=== PATIENT | male | born 1960 | race Two or more races ===

== ENCOUNTER 2018-04-10 12:24 | Inpatient (IN) | payer MEDICAID ==
[~2018-04-10] VITALS: Ht 172.7 cm; Wt 74.8 kg
[~2018-04-10 12:24] MED LIST: DEBROX15 M1 LEFT EAR; LIDOCAINE VISCO20 ML PO
--- NOTE | 2018-04-10 12:50 | Emergency Room Report ---
History of Present Illness General Chief Complaint: Alcohol Intoxication Source: Patient Present Illness HPI Patient present by paramedics for reports of alcohol intoxication patient himself is not awake Is not verbally responsive with us responds minimally to physical stimuli Paramedics reported vomiting prior to arrival History of present illness is otherwise significantly limited Unknown regarding any other trauma Allergies: Coded Allergies: No Known Allergies (Verified , 10/22/06) Patient History Limited by: medical condition Past Medical History: see triage record Pertinent Family History: unable to obtain Reviewed Nursing Documentation: PMH: Agreed; PSxH: Agreed Nursing Documentation-PMH Past Medical History: No History, Except For Hx Hypertension: Yes History Of Psychiatric Problem: Yes - Anxiety, Depression Review of Systems All Other Systems: limited - Other than the ones mentioned in the history of present illness all others are reviewed however they do stay limited due to the patient's mental status Physical Exam Vital Signs Date Time Temp Pulse Resp B/P (MAP) Pulse Ox O2 Delivery O2 Flow Rate FiO2 04/10/18 12:21 98.1 118 20 118/81 94 Room Air 98.1 Sp02 EP Interpretation: reviewed, normal General Appearance: no apparent distress - Disheveled appearance Head: normocephalic, atraumatic Eyes: bilateral eye PERRL, bilateral eye EOMI ENT: normal pharynx Neck: supple Respiratory: normal breath sounds, no rhonchi, no retraction, no accessory muscle use Cardiovascular #1: regular rate, rhythm, no edema Gastrointestinal: non tender, soft Musculoskeletal: other - Withdraws from physical stimuli, no obvious focal deficit Neurologic: responsive - To physical stimuli Skin: other - appears disheveled no obvious hematomas Lymphatic: no adenopathy Medical Decision Making Diagnostic Impression: Primary Impression: Acidosis Additional Impressions: Acute encephalopathy Alcoholic liver disease Hypokalemia Hyponatremia Renal failure ER Course Patient presents in acute altered mental status Multiple differentials are considered Patient has extensive workup initiated including blood work and imaging CT head does not show any acute disease Patient's potassium is significantly low and this is replaced Patient also receiving IV hydration There are evidence of acidosis Patient's mentation has improved throughout his stay However patient does require further inpatient care multispecialty consultation Labs Test 04/10/18 12:59 White Blood Count 9.5 K/UL (4.8-10.8) Red Blood Count 5.08 M/UL (4.70-6.10) Hemoglobin 15.2 G/DL (14.2-18.0) Hematocrit 43.5 % (42.0-52.0) Mean Corpuscular Volume 86 FL (80-99) Mean Corpuscular Hemoglobin 29.9 PG (27.0-31.0) Mean Corpuscular Hemoglobin Concent 34.9 G/DL (32.0-36.0) Red Cell Distribution Width 12.5 % (11.6-14.8) Platelet Count 279 K/UL (150-450) Mean Platelet Volume 6.7 FL (6.5-10.1) Neutrophils (%) (Auto) % (45.0-75.0) Lymphocytes (%) (Auto) % (20.0-45.0) Monocytes (%) (Auto) % (1.0-10.0) Eosinophils (%) (Auto) % (0.0-3.0) Basophils (%) (Auto) % (0.0-2.0) Sodium Level 130 MMOL/L (136-145) Potassium Level 2.2 MMOL/L (3.5-5.1) Chloride Level 83 MMOL/L (98-107) Carbon Dioxide Level 17 MMOL/L (21-32) Anion Gap 31 mmol/L (5-15) Blood Urea Nitrogen 32 mg/dL (7-18) Creatinine 1.9 MG/DL (0.55-1.30) Estimat Glomerular Filtration Rate 37.6 mL/min (>60) Glucose Level 390 MG/DL (74-106) Calcium Level 10.1 MG/DL (8.5-10.1) Total Bilirubin 5.3 MG/DL (0.2-1.0) Direct Bilirubin 3.5 MG/DL (0.0-0.3) Aspartate Amino Transf (AST/SGOT) 207 U/L (15-37) Alanine Aminotransferase (ALT/SGPT) 323 U/L (12-78) Alkaline Phosphatase 103 U/L (46-116) Total Protein 8.0 G/DL (6.4-8.2) Albumin 3.9 G/DL (3.4-5.0) Globulin 4.1 g/dL Albumin/Globulin Ratio 1.0 (1.0-2.7) Serum Alcohol < 3 mg/dL Rhythm Strip Diag. Results EP Interpretation: yes Rate: 66 Rhythm: NSR, no PVC's, no ectopy CT/MRI/US Diagnostic Results CT/MRI/US Diagnostic Results : Impression CT head1. No acute intracranial findings. No evidence of acute intracranial hemorrhage, mass effect, or midline shift. 2. Mild periventricular white matter hypodensities likelyrelated to chronic small vessel disease changes. 3. Generalized cerebral parenchymal volume loss, likelyage-related. Last Vital Signs Date Time Temp Pulse Resp B/P (MAP) Pulse Ox O2 Delivery O2 Flow Rate FiO2 04/10/18 12:21 98.1 118 20 118/81 94 Room Air 98.1 Status: improved Disposition: ADMITTED INPATIENT Condition: Serious Shawn Cruz DO Apr 10, 2018 12:50
[2018-04-10 12:58] VITALS: BP 110/76
[2018-04-10 13:11] LABS: HEMATOCRIT 43.5 % (42.0-52.0); HEMOGLOBIN 15.2 G/DL (14.2-18.0); MEAN CORPUSCULAR VOLUME 86 FL (80-99); PLATELET COUNT 279 K/UL (150-450); RED BLOOD COUNT 5.08 M/UL (4.70-6.10); RED CELL DISTRIBUTION WIDTH 12.5 % (11.6-14.8); WHITE BLOOD COUNT 9.5 K/UL (4.8-10.8)
[2018-04-10 13:30] LABS: ALANINE AMINOTRANSFERASE 323 U/L (12-78); ALBUMIN 3.9 G/DL (3.4-5.0); ALKALINE PHOSPHATASE 103 U/L (46-116); ANION GAP 31 mmol/L (5-15); ASPARTATE AMINO TRANSFERASE 207 U/L (15-37); BILIRUBIN,TOTAL 5.3 MG/DL (0.2-1.0); BLOOD UREA NITROGEN 32 mg/dL (7-18); CALCIUM 10.1 MG/DL (8.5-10.1); CARBON DIOXIDE 17 MMOL/L (21-32); CHLORIDE 83 MMOL/L (98-107); CREATININE 1.9 MG/DL (0.55-1.30); SODIUM 130 MMOL/L (136-145)
[2018-04-10 13:34] LABS: POTASSIUM 2.2 MMOL/L (3.5-5.1)
[2018-04-10 13:46] LABS: BILIRUBIN,DIRECT 3.5 MG/DL (0.0-0.3)
[2018-04-10] MEDS ORDERED: Insulin Human Regular 100units/ml 3ml IV ONE (14:00)
[2018-04-10] MEDS ORDERED: Thiamine HCl 100 MG in D5W 55 ML IVPB ONE (14:45)
[2018-04-10 15:32] VITALS: BP 117/63
[2018-04-10 16:13] LABS: AMMONIA 69 umol/L (11-32)
[2018-04-10] MEDS ORDERED: D5 1/2NS 1,000 ML IV SCH (16:33)
[2018-04-10] MEDS ORDERED: Morphine Sulfate 2mg/ml Inj IVP PRN (16:45)
[2018-04-10] MEDS ORDERED: LORazepam Inj 2mg/ml 1ml IV PRN (16:45)
[2018-04-10 17:29] VITALS: BP 119/71
[2018-04-10 20:00] VITALS: BP 114/72
[2018-04-10] MEDS: NovoLOG Insulin Flexpen SUBQ SCH (21:21)
[2018-04-10] MEDS: Heparin 5000 units/ml inj SUBQ SCH (21:21)
[2018-04-10] MEDS ORDERED: Folic Acid 1 MG, Magnesium Sulfate 2,000 MG, Multivitamin - 12 Injection 10 ML in NS w/... IV SCH (23:00)
[2018-04-11] VITALS: BP 124/55
[2018-04-11 04:00] VITALS: BP 116/61
[2018-04-11] MEDS: NovoLOG Insulin Flexpen SUBQ SCH ×4 (06:11→20:47)
[2018-04-11 07:41] VITALS: BP 90/62
--- NOTE | 2018-04-11 07:50 | Diagnostic Imaging Report ---
Indication: Altered mental status Technique: Continuous axial CT scanning of the head was performed utilizing automated exposure control without intravenous contrast material. Comparison: 10/22/2006 CT dose: Total DLP 1421 mGycm; CTDI vol 0.2, 7 0.4 mGy Findings: There is no acute intracranial hemorrhage, mass effect, midline shift or cortical edema. The ventricles, cisterns and sulci are mildly prominent consistent with atrophy. Periventricular hypoattenuation is seen, a nonspecific finding. Visualized mastoid air cells and paranasal sinuses are unremarkable. No focal lesions of the bony calvarium or soft tissues of the scalp are seen. IMPRESSION: No evidence of acute intracranial hemorrhage, mass effect or cortical edema. MRI may be obtained for more sensitive evaluation as clinically indicated. Mild atrophy and nonspecific periventricular hypoattenuation suggestive of chronic ischemic microvascular changes. This corresponds with the statrad preliminary report. The CT scanner at [facility] is accredited by the [employer] and the scans are performed using protocols designed to limit radiation exposure to as low as reasonably achievable to attain images of sufficient resolution adequate for diagnostic evaluation.
[2018-04-11 07:52] LABS: BASOPHILS % (AUTO) 0.5 % (0.0-2.0); EOSINOPHILS % (AUTO) 0.1 % (0.0-3.0); HEMATOCRIT 38.9 % (42.0-52.0); HEMOGLOBIN 13.7 G/DL (14.2-18.0); LYMPHOCYTES % (AUTO) 12.3 % (20.0-45.0); MEAN CORPUSCULAR VOLUME 86 FL (80-99); MONOCYTES % (AUTO) 5.5 % (1.0-10.0); NEUTROPHILS % (AUTO) 81.6 % (45.0-75.0); PLATELET COUNT 225 K/UL (150-450); RED BLOOD COUNT 4.53 M/UL (4.70-6.10); RED CELL DISTRIBUTION WIDTH 13.2 % (11.6-14.8); WHITE BLOOD COUNT 10.2 K/UL (4.8-10.8)
[2018-04-11] MEDS: Heparin 5000 units/ml inj SUBQ SCH ×2 (08:08→20:43)
[2018-04-11 08:38] LABS: ALANINE AMINOTRANSFERASE 277 U/L (12-78); ALBUMIN 3.3 G/DL (3.4-5.0); ALBUMIN/GLOBULIN RATIO 0.9 (1.0-2.7); ALKALINE PHOSPHATASE 93 U/L (46-116); ANION GAP 10 mmol/L (5-15); ASPARTATE AMINO TRANSFERASE 240 U/L (15-37); BILIRUBIN,TOTAL 4.7 MG/DL (0.2-1.0); BLOOD UREA NITROGEN 32 mg/dL (7-18); CARBON DIOXIDE 33 MMOL/L (21-32); CHLORIDE 100 MMOL/L (98-107); CREATININE 1.1 MG/DL (0.55-1.30); SODIUM 142 MMOL/L (136-145)
[2018-04-11 08:41] LABS: POTASSIUM 2.5 MMOL/L (3.5-5.1)
[2018-04-11 08:42] LABS: BILIRUBIN,DIRECT 3.2 MG/DL (0.0-0.3)
--- NOTE | 2018-04-11 10:59 | Consultation ---
History of Present Illness General Date patient seen: Apr 11, 2018 Chief Complaint: Alcohol Intoxication Present Illness HPI 57-year-old male with hx of depression and anxiety and alcohol dependence , who presents with chief complaint of acute alcohol intoxication. the pt is well known to this physicians. the pt has chronic suicidal ideation. he stated that he was anxious. the pt has irritable mood and is mildly confused. Allergies: Coded Allergies: No Known Allergies (Verified , 10/22/06) Patient History Limited by: medical condition History Provided By: Patient, Medical Record, PMD Healthcare decision maker Resuscitation status Full Code Advanced Directive on File No Past Medical/Surgical History Past Medical/Surgical History: (1) Acidosis (2) Acute alcoholic intoxication (3) Hypokalemia (4) Hyponatremia (5) Alcoholic liver disease (6) Psychosis (7) Acute encephalopathy Review of Systems Psychiatric: Reports: anxiety, depressed feelings, emotional problems, SI Physical Exam General Appearance: no apparent distress, alert, confused Neurologic: depressed affect Last 24 Hour Vital Signs Date Time Temp Pulse Resp B/P (MAP) Pulse Ox O2 Delivery O2 Flow Rate FiO2 04/11/18 08:36 Room Air 04/11/18 07:41 97.0 98 19 90/62 (71) 97 97.0 04/11/18 07:40 90 04/11/18 04:00 96.4 98 19 116/61 (79) 97 96.4 04/11/18 04:00 94 04/11/18 00:00 97.0 97 19 124/55 (78) 96 97.0 04/10/18 21:00 Room Air 04/10/18 20:00 117 04/10/18 20:00 97.5 115 20 114/72 (86) 95 97.5 04/10/18 17:57 Room Air 04/10/18 17:49 98.1 102 20 119/71 100 Room Air 98.1 04/10/18 17:29 98.1 102 20 119/71 100 Room Air 98.1 04/10/18 15:32 98.1 102 20 117/63 100 Room Air 98.1 04/10/18 12:58 98.1 84 20 110/76 94 Room Air 98.1 04/10/18 12:21 98.1 118 20 118/81 94 Room Air 98.1 Intake and Output 04/10/18 04/11/18 19:00 07:00 Output Total 0 ml 250 ml Balance 0 ml -250 ml Output Urine Total 0 ml Emesis 250 ml # Voids 2 Laboratory Tests Test 04/10/18 12:59 04/10/18 15:40 04/10/18 16:57 04/10/18 17:13 White Blood Count 9.5 K/UL (4.8-10.8) Red Blood Count 5.08 M/UL (4.70-6.10) Hemoglobin 15.2 G/DL (14.2-18.0) Hematocrit 43.5 % (42.0-52.0) Mean Corpuscular Volume 86 FL (80-99) Mean Corpuscular Hemoglobin 29.9 PG (27.0-31.0) Mean Corpuscular Hemoglobin Concent 34.9 G/DL (32.0-36.0) Red Cell Distribution Width 12.5 % (11.6-14.8) Platelet Count 279 K/UL (150-450) Mean Platelet Volume 6.7 FL (6.5-10.1) Neutrophils (%) (Auto) % (45.0-75.0) Lymphocytes (%) (Auto) % (20.0-45.0) Monocytes (%) (Auto) % (1.0-10.0) Eosinophils (%) (Auto) % (0.0-3.0) Basophils (%) (Auto) % (0.0-2.0) Differential Total Cells Counted 100 Neutrophils % (Manual) 88 % (45-75) H Lymphocytes % (Manual) 5 % (20-45) L Monocytes % (Manual) 7 % (1-10) Eosinophils % (Manual) 0 % (0-3) Basophils % (Manual) 0 % (0-2) Band Neutrophils 0 % (0-8) Platelet Estimate Adequate Platelet Morphology Normal Red Blood Cell Morphology Normal Sodium Level 130 MMOL/L (136-145) L Potassium Level 2.2 MMOL/L (3.5-5.1) *L Chloride Level 83 MMOL/L (98-107) L Carbon Dioxide Level 17 MMOL/L (21-32) L Anion Gap 31 mmol/L (5-15) H Blood Urea Nitrogen 32 mg/dL (7-18) H Creatinine 1.9 MG/DL (0.55-1.30) H Estimat Glomerular Filtration Rate 37.6 mL/min (>60) Glucose Level 390 MG/DL (74-106) H Calcium Level 10.1 MG/DL (8.5-10.1) Total Bilirubin 5.3 MG/DL (0.2-1.0) H Direct Bilirubin 3.5 MG/DL (0.0-0.3) H Aspartate Amino Transf (AST/SGOT) 207 U/L (15-37) H Alanine Aminotransferase (ALT/SGPT) 323 U/L (12-78) H Alkaline Phosphatase 103 U/L (46-116) Total Protein 8.0 G/DL (6.4-8.2) Albumin 3.9 G/DL (3.4-5.0) Globulin 4.1 g/dL Albumin/Globulin Ratio 1.0 (1.0-2.7) Serum Alcohol < 3 mg/dL Activated Partial Thromboplast Time 22 SEC (23-33) L Osmolality 300 mOsm/kg (297-317) Ammonia 69 umol/L (11-32) H Salicylates Level < 0.2 ug/mL (2.8-20) L Acetone Level Negative (NEGATIVE) Urine Opiates Screen Negative (NEGATIVE) Urine Barbiturates Screen Negative (NEGATIVE) Phencyclidine (PCP) Screen Negative (NEGATIVE) Urine Amphetamines Screen Negative (NEGATIVE) Urine Benzodiazepines Screen Negative (NEGATIVE) Urine Cocaine Screen Negative (NEGATIVE) Urine Marijuana (THC) Screen Negative (NEGATIVE) Arterial Blood pH 7.502 (7.350-7.450) Arterial Blood Partial Pressure CO2 33.2 mmHg (35.0-45.0) L Arterial Blood Partial Pressure O2 69.2 mmHg (75.0-100.0) L Arterial Blood HCO3 25.4 mmol/L (22.0-26.0) Arterial Blood Oxygen Saturation 94.0 % (92.0-98.0) Arterial Blood Base Excess 2.7 Brant Test Positive Test 04/11/18 07:15 White Blood Count 10.2 K/UL (4.8-10.8) Red Blood Count 4.53 M/UL (4.70-6.10) L Hemoglobin 13.7 G/DL (14.2-18.0) L Hematocrit 38.9 % (42.0-52.0) L Mean Corpuscular Volume 86 FL (80-99) Mean Corpuscular Hemoglobin 30.3 PG (27.0-31.0) Mean Corpuscular Hemoglobin Concent 35.3 G/DL (32.0-36.0) Red Cell Distribution Width 13.2 % (11.6-14.8) Platelet Count 225 K/UL (150-450) Mean Platelet Volume 6.7 FL (6.5-10.1) Neutrophils (%) (Auto) 81.6 % (45.0-75.0) H Lymphocytes (%) (Auto) 12.3 % (20.0-45.0) L Monocytes (%) (Auto) 5.5 % (1.0-10.0) Eosinophils (%) (Auto) 0.1 % (0.0-3.0) Basophils (%) (Auto) 0.5 % (0.0-2.0) Sodium Level 142 MMOL/L (136-145) # Potassium Level 2.5 MMOL/L (3.5-5.1) *L Chloride Level 100 MMOL/L (98-107) Carbon Dioxide Level 33 MMOL/L (21-32) H Anion Gap 10 mmol/L (5-15) Blood Urea Nitrogen 32 mg/dL (7-18) H Creatinine 1.1 MG/DL (0.55-1.30) Estimat Glomerular Filtration Rate > 60 mL/min (>60) Glucose Level 136 MG/DL (74-106) #H Calcium Level 9.0 MG/DL (8.5-10.1) Total Bilirubin 4.7 MG/DL (0.2-1.0) H Direct Bilirubin 3.2 MG/DL (0.0-0.3) H Aspartate Amino Transf (AST/SGOT) 240 U/L (15-37) H Alanine Aminotransferase (ALT/SGPT) 277 U/L (12-78) H Alkaline Phosphatase 93 U/L (46-116) Total Protein 7.1 G/DL (6.4-8.2) Albumin 3.3 G/DL (3.4-5.0) L Globulin 3.8 g/dL Albumin/Globulin Ratio 0.9 (1.0-2.7) L Height (Feet): 5 Height (Inches): 8.00 Weight (Pounds): 165 Medications Current Medications Medications (Trade) Dose Ordered Sig/Clyde Route PRN Reason Start Time Stop Time Status Last Admin Dose Admin Dextrose (Dextrose 50%) 25 ml PRN IV Hypoglycemia 04/10/18 16:45 05/10/18 16:44 Dextrose (Dextrose 50%) 50 ml PRN IV hypoglycemia 04/10/18 16:45 05/10/18 16:44 Folic Acid 1 mg/ Magnesium Sulfate 2000 mg/ Multivitamins 10 ml/Sodium Chloride 1,014.2 ml @ 125 mls/ hr Q24H IV 04/10/18 23:00 05/10/18 22:59 04/10/18 23:12 Heparin Sodium (Porcine) (Heparin 5000 units/ml) 5,000 units EVERY 12 HOURS SUBQ 04/10/18 21:00 05/10/18 20:59 04/11/18 08:08 Insulin Aspart (NovoLOG) BEFORE MEALS AND HS SUBQ 04/10/18 21:00 05/10/18 20:59 04/11/18 06:11 Lorazepam (Ativan 2mg/ml 1ml) 0.5 mg Q4H PRN IV For Anxiety 04/10/18 16:45 04/17/18 16:44 Morphine Sulfate (Morphine Sulfate) 1 mg Q4H PRN IVP For Pain 04/10/18 16:45 04/17/18 16:44 Ondansetron HCl (Zofran) 4 mg Q6H PRN IVP Nausea & Vomiting 04/10/18 16:45 05/10/18 16:44 04/10/18 18:28 Potassium Chloride 100 ml @ 100 mls/hr Q1HR IVPB 04/11/18 10:00 04/11/18 13:59 04/11/18 10:20 Potassium Chloride 100 ml @ 100 mls/hr Q1HR IVPB 04/11/18 18:00 04/11/18 21:59 Sodium Chloride 1,000 ml @ 50 mls/hr Q20H IV 04/10/18 21:00 05/10/18 20:59 04/10/18 21:19 Assessment/Plan Status: stable Assessment/Plan alcohol intoxication Alcohol withdrawal Encephalopathy due to substance/alcohol valium prn depakote cont to monitor provided ro/Aubrey Triplett MD Apr 11, 2018 10:59
[2018-04-11 12:00] VITALS: BP 96/54
--- NOTE | 2018-04-11 12:51 | Consultation ---
History of Present Illness General Date patient seen: Apr 11, 2018 Present Illness HPI 57 year old male with hx of ETOH liver disease, psychosis brought in by paramedics with ALOC. Paramedics reported vomiting prior to their arrival. He was agitated in Er and received appropriate treatment in ER and admitted to telemetry for further treatment. Allergies: Coded Allergies: No Known Allergies (Verified , 10/22/06) Patient History Healthcare decision maker Resuscitation status Full Code Advanced Directive on File No Past Medical/Surgical History Past Medical/Surgical History: (1) Alcoholic liver disease (2) Psychosis Review of Systems Constitutional: Reports: malaise Physical Exam General Appearance: WD/WN Lines, tubes and drains: peripheral HEENT: normocephalic Neck: non-tender, normal alignment Respiratory/Chest: chest wall non-tender, lungs clear Breasts: no masses Cardiovascular/Chest: normal peripheral pulses Abdomen: normal bowel sounds, non tender Genitourinary/Rectal: normal genital exam Extremities: normal range of motion Skin Exam: normal pigmentation Last 24 Hour Vital Signs Date Time Temp Pulse Resp B/P (MAP) Pulse Ox O2 Delivery O2 Flow Rate FiO2 04/11/18 08:36 Room Air 04/11/18 07:41 97.0 98 19 90/62 (71) 97 97.0 04/11/18 07:40 90 04/11/18 04:00 96.4 98 19 116/61 (79) 97 96.4 04/11/18 04:00 94 04/11/18 00:00 97.0 97 19 124/55 (78) 96 97.0 04/10/18 21:00 Room Air 04/10/18 20:00 117 04/10/18 20:00 97.5 115 20 114/72 (86) 95 97.5 04/10/18 17:57 Room Air 04/10/18 17:49 98.1 102 20 119/71 100 Room Air 98.1 04/10/18 17:29 98.1 102 20 119/71 100 Room Air 98.1 04/10/18 15:32 98.1 102 20 117/63 100 Room Air 98.1 04/10/18 12:58 98.1 84 20 110/76 94 Room Air 98.1 Intake and Output 04/10/18 04/11/18 19:00 07:00 Output Total 0 ml 250 ml Balance 0 ml -250 ml Output Urine Total 0 ml Emesis 250 ml # Voids 2 Laboratory Tests Test 04/10/18 12:59 04/10/18 15:40 04/10/18 16:57 04/10/18 17:13 White Blood Count 9.5 K/UL (4.8-10.8) Red Blood Count 5.08 M/UL (4.70-6.10) Hemoglobin 15.2 G/DL (14.2-18.0) Hematocrit 43.5 % (42.0-52.0) Mean Corpuscular Volume 86 FL (80-99) Mean Corpuscular Hemoglobin 29.9 PG (27.0-31.0) Mean Corpuscular Hemoglobin Concent 34.9 G/DL (32.0-36.0) Red Cell Distribution Width 12.5 % (11.6-14.8) Platelet Count 279 K/UL (150-450) Mean Platelet Volume 6.7 FL (6.5-10.1) Neutrophils (%) (Auto) % (45.0-75.0) Lymphocytes (%) (Auto) % (20.0-45.0) Monocytes (%) (Auto) % (1.0-10.0) Eosinophils (%) (Auto) % (0.0-3.0) Basophils (%) (Auto) % (0.0-2.0) Differential Total Cells Counted 100 Neutrophils % (Manual) 88 % (45-75) H Lymphocytes % (Manual) 5 % (20-45) L Monocytes % (Manual) 7 % (1-10) Eosinophils % (Manual) 0 % (0-3) Basophils % (Manual) 0 % (0-2) Band Neutrophils 0 % (0-8) Platelet Estimate Adequate Platelet Morphology Normal Red Blood Cell Morphology Normal Sodium Level 130 MMOL/L (136-145) L Potassium Level 2.2 MMOL/L (3.5-5.1) *L Chloride Level 83 MMOL/L (98-107) L Carbon Dioxide Level 17 MMOL/L (21-32) L Anion Gap 31 mmol/L (5-15) H Blood Urea Nitrogen 32 mg/dL (7-18) H Creatinine 1.9 MG/DL (0.55-1.30) H Estimat Glomerular Filtration Rate 37.6 mL/min (>60) Glucose Level 390 MG/DL (74-106) H Calcium Level 10.1 MG/DL (8.5-10.1) Total Bilirubin 5.3 MG/DL (0.2-1.0) H Direct Bilirubin 3.5 MG/DL (0.0-0.3) H Aspartate Amino Transf (AST/SGOT) 207 U/L (15-37) H Alanine Aminotransferase (ALT/SGPT) 323 U/L (12-78) H Alkaline Phosphatase 103 U/L (46-116) Total Protein 8.0 G/DL (6.4-8.2) Albumin 3.9 G/DL (3.4-5.0) Globulin 4.1 g/dL Albumin/Globulin Ratio 1.0 (1.0-2.7) Serum Alcohol < 3 mg/dL Activated Partial Thromboplast Time 22 SEC (23-33) L Osmolality 300 mOsm/kg (297-317) Ammonia 69 umol/L (11-32) H Salicylates Level < 0.2 ug/mL (2.8-20) L Acetone Level Negative (NEGATIVE) Urine Opiates Screen Negative (NEGATIVE) Urine Barbiturates Screen Negative (NEGATIVE) Phencyclidine (PCP) Screen Negative (NEGATIVE) Urine Amphetamines Screen Negative (NEGATIVE) Urine Benzodiazepines Screen Negative (NEGATIVE) Urine Cocaine Screen Negative (NEGATIVE) Urine Marijuana (THC) Screen Negative (NEGATIVE) Arterial Blood pH 7.502 (7.350-7.450) Arterial Blood Partial Pressure CO2 33.2 mmHg (35.0-45.0) L Arterial Blood Partial Pressure O2 69.2 mmHg (75.0-100.0) L Arterial Blood HCO3 25.4 mmol/L (22.0-26.0) Arterial Blood Oxygen Saturation 94.0 % (92.0-98.0) Arterial Blood Base Excess 2.7 Brant Test Positive Test 04/11/18 07:15 White Blood Count 10.2 K/UL (4.8-10.8) Red Blood Count 4.53 M/UL (4.70-6.10) L Hemoglobin 13.7 G/DL (14.2-18.0) L Hematocrit 38.9 % (42.0-52.0) L Mean Corpuscular Volume 86 FL (80-99) Mean Corpuscular Hemoglobin 30.3 PG (27.0-31.0) Mean Corpuscular Hemoglobin Concent 35.3 G/DL (32.0-36.0) Red Cell Distribution Width 13.2 % (11.6-14.8) Platelet Count 225 K/UL (150-450) Mean Platelet Volume 6.7 FL (6.5-10.1) Neutrophils (%) (Auto) 81.6 % (45.0-75.0) H Lymphocytes (%) (Auto) 12.3 % (20.0-45.0) L Monocytes (%) (Auto) 5.5 % (1.0-10.0) Eosinophils (%) (Auto) 0.1 % (0.0-3.0) Basophils (%) (Auto) 0.5 % (0.0-2.0) Sodium Level 142 MMOL/L (136-145) # Potassium Level 2.5 MMOL/L (3.5-5.1) *L Chloride Level 100 MMOL/L (98-107) Carbon Dioxide Level 33 MMOL/L (21-32) H Anion Gap 10 mmol/L (5-15) Blood Urea Nitrogen 32 mg/dL (7-18) H Creatinine 1.1 MG/DL (0.55-1.30) Estimat Glomerular Filtration Rate > 60 mL/min (>60) Glucose Level 136 MG/DL (74-106) #H Calcium Level 9.0 MG/DL (8.5-10.1) Total Bilirubin 4.7 MG/DL (0.2-1.0) H Direct Bilirubin 3.2 MG/DL (0.0-0.3) H Aspartate Amino Transf (AST/SGOT) 240 U/L (15-37) H Alanine Aminotransferase (ALT/SGPT) 277 U/L (12-78) H Alkaline Phosphatase 93 U/L (46-116) Total Protein 7.1 G/DL (6.4-8.2) Albumin 3.3 G/DL (3.4-5.0) L Globulin 3.8 g/dL Albumin/Globulin Ratio 0.9 (1.0-2.7) L Height (Feet): 5 Height (Inches): 8.00 Weight (Pounds): 165 Medications Current Medications Medications (Trade) Dose Ordered Sig/Clyde Route PRN Reason Start Time Stop Time Status Last Admin Dose Admin Dextrose (Dextrose 50%) 25 ml PRN IV Hypoglycemia 04/10/18 16:45 05/10/18 16:44 Dextrose (Dextrose 50%) 50 ml PRN IV hypoglycemia 04/10/18 16:45 05/10/18 16:44 Diazepam (Valium) 10 mg Q6H PRN ORAL For Anxiety 04/11/18 11:30 04/18/18 11:29 Divalproex Sodium (Depakote) 500 mg BEDTIME ORAL 04/11/18 21:00 05/11/18 20:59 Folic Acid 1 mg/ Magnesium Sulfate 2000 mg/ Multivitamins 10 ml/Sodium Chloride 1,014.2 ml @ 125 mls/ hr Q24H IV 04/10/18 23:00 05/10/18 22:59 04/10/18 23:12 Heparin Sodium (Porcine) (Heparin 5000 units/ml) 5,000 units EVERY 12 HOURS SUBQ 04/10/18 21:00 05/10/18 20:59 04/11/18 08:08 Insulin Aspart (NovoLOG) BEFORE MEALS AND HS SUBQ 04/10/18 21:00 05/10/18 20:59 04/11/18 11:22 Morphine Sulfate (Morphine Sulfate) 1 mg Q4H PRN IVP For Pain 04/10/18 16:45 04/17/18 16:44 Ondansetron HCl (Zofran) 4 mg Q6H PRN IVP Nausea & Vomiting 04/10/18 16:45 05/10/18 16:44 04/10/18 18:28 Potassium Chloride 100 ml @ 100 mls/hr Q1HR IVPB 04/11/18 10:00 04/11/18 13:59 04/11/18 12:13 Potassium Chloride 100 ml @ 100 mls/hr Q1HR IVPB 04/11/18 18:00 04/11/18 21:59 Sodium Chloride 1,000 ml @ 50 mls/hr Q20H IV 04/10/18 21:00 05/10/18 20:59 04/10/18 21:19 Assessment/Plan Problem List: (1) Acute encephalopathy ICD Codes: G93.40 - Encephalopathy, unspecified SNOMED: 00998590, 203609228 (2) Hyponatremia ICD Codes: E87.1 - Hypo-osmolality and hyponatremia SNOMED: 37907875 (3) Alcoholic liver disease ICD Codes: K70.9 - Alcoholic liver disease, unspecified SNOMED: 12459994 (4) Psychosis ICD Codes: F29 - Unspecified psychosis not due to a substance or known physiological condition SNOMED: 67402741 Assessment/Plan iv fluids psych evaluation Banan bag f/u electrolytes check Na, and K supplement social service consult Marion Schneider MD Apr 11, 2018 12:51
[2018-04-11 16:00] VITALS: BP 130/60
[2018-04-11] MEDS ORDERED: Morphine Sulfate 2mg/ml Inj IVP PRN (16:45)
[2018-04-11 20:00] VITALS: BP 93/70
[2018-04-11] MEDS: Depakote 500mg tab ORAL SCH (20:36)
[2018-04-11] MEDS ORDERED: Depakote 500mg tab ORAL SCH (21:00)
--- NOTE | 2018-04-11 22:00 | History and Physical Report ---
DATE OF ADMISSION: 04/10/2018 CHIEF COMPLAINT: The patient is a 57-year-old male, who presents with chief complaint of acute alcohol intoxication. HISTORY OF PRESENT ILLNESS: The patient was brought in by paramedics who found the patient on the street, obviously intoxicated. The patient was transported to [facility]. The patient was admitted for acute alcohol intoxication and severe hyponatremia and hypokalemia. PAST MEDICAL HISTORY: Significant for major depression. PAST SURGICAL HISTORY: Significant for appendectomy at age 11. CURRENT MEDICATIONS: Unknown. ALLERGIES: No known drug allergies. SOCIAL HISTORY: The patient is single and has been living in [facility]. The patient denies tobacco or alcohol use. The patient denies tobacco use. The patient states that he has been drinking alcohol daily for the past couple weeks. REVIEW OF SYSTEMS: CONSTITUTIONAL: The patient denies weight loss or weight gain. The patient denies fevers or chills. HEENT: The patient denies ear or throat pain. The patient denies headache. CARDIOVASCULAR: The patient denies palpitations or chest pain. CHEST: The patient denies wheeze or shortness of breath. ABDOMEN: The patient complains of epigastric pain. The patient denies diarrhea. The patient complains of nausea and vomiting. NEUROMUSCULAR: The patient denies seizures or generalized weakness. GENITOURINARY: The patient denies dysuria or increased frequency of urination. PHYSICAL EXAMINATION: GENERAL: The patient is well-developed and well-nourished disheveled male, in no apparent distress. VITAL SIGNS: Temperature 96.4 degrees, respirations 19, pulse 98, and blood pressure 116/ . HEENT: Eyes, pupils equal and responsive to light and accommodation. Extraocular movements are intact. NECK: Supple without lymphadenopathy. CHEST: Lungs are clear to auscultation bilaterally without wheezes or rales. CARDIOVASCULAR: Regular rate. S1 and S2 are normal without murmurs, rubs, or gallops. ABDOMEN: Soft, nontender, and nondistended. Positive bowel sounds. No evidence of hepatosplenomegaly. Currently, no rebound or guarding noted. EXTREMITIES: Negative for clubbing, cyanosis, or edema. RECTAL: Refused. GENITAL: Refused. NEUROLOGIC: Cranial nerves II through XII are grossly intact without focal deficits. Motor strength is 5/5 bilaterally. Deep tendon reflexes are 2+ plantar. LABORATORY AND DIAGNOSTIC DATA: WBC 9.5, hemoglobin 15.2, hematocrit 43.5 and platelets 279,000. Sodium 130, potassium 2.2, chloride 83, CO2 17, BUN 32, creatinine 1.9 and glucose 390. Total bilirubin elevated at 5.3, direct bilirubin elevated at 3.5. AST elevated at 207 and ALT elevated at 320. ASSESSMENT: This is a 57-year-old male; 1. Acute alcohol intoxication. 2. Alcohol dependence. 3. Hypokalemia. 4. Hyponatremia. 5. Renal failure. 6. Elevated liver function tests. TREATMENT: 1. Alcohol intoxication/alcohol dependence. The patient has been placed on p.r.n. Ativan and Neurontin for seizure precautions. 2. Hypokalemia/hyponatremia. This may be secondary to nausea and vomiting. A Nephrology consultation is pending with Dr. Bautista. 3. Renal failure. The patient is currently receiving intravenous fluids. As above, a Nephrology consultation obtained with Dr. Bautista. 4. Elevated liver function tests. A Gastroenterology consultation has been obtained with Dr. Jarod Rich. 5. Major depression. A Psychiatric consultation has been obtained with Dr. Roberts. Josue Shah M.D. DR: COLETET JOB#: [id number] CC:
[2018-04-11] MEDS: Folic Acid 1 MG, Magnesium Sulfate 2,000 MG, Multivitamin - 12 Injection 10 ML in NS w/... IV SCH (23:13)
[2018-04-12] VITALS: BP 96/57
[2018-04-12 04:00] VITALS: BP 93/66
[2018-04-12] MEDS: NovoLOG Insulin Flexpen SUBQ SCH ×4 (06:18→21:27)
[2018-04-12 07:59] LABS: EOSINOPHILS % (AUTO) 0.4 % (0.0-3.0); HEMOGLOBIN 12.2 G/DL (14.2-18.0); MEAN CORPUSCULAR VOLUME 87 FL (80-99); MONOCYTES % (AUTO) 6.9 % (1.0-10.0); NEUTROPHILS % (AUTO) 75.7 % (45.0-75.0); PLATELET COUNT 204 K/UL (150-450); RED BLOOD COUNT 4.01 M/UL (4.70-6.10); RED CELL DISTRIBUTION WIDTH 13.8 % (11.6-14.8); WHITE BLOOD COUNT 7.6 K/UL (4.8-10.8)
[2018-04-12 08:01] VITALS: BP 109/77
[2018-04-12 08:23] LABS: ANION GAP 7 mmol/L (5-15); BLOOD UREA NITROGEN 17 mg/dL (7-18); CALCIUM 9.2 MG/DL (8.5-10.1); CARBON DIOXIDE 34 MMOL/L (21-32); CHLORIDE 97 MMOL/L (98-107); CREATININE 0.8 MG/DL (0.55-1.30); SODIUM 138 MMOL/L (136-145)
[2018-04-12 08:24] LABS: POTASSIUM 2.7 MMOL/L (3.5-5.1)
[2018-04-12] MEDS: Heparin 5000 units/ml inj SUBQ SCH ×2 (08:47→21:21)
[2018-04-12] MEDS ORDERED: Tubing IV Secondary IV ONE (11:12)
[2018-04-12] MEDS ORDERED: NS 275ml ONE (11:12)
--- NOTE | 2018-04-12 11:41 | Pulmonology Progress Note ---
Assessment/Plan Problems: (1) Acute encephalopathy (2) Hyponatremia (3) Alcoholic liver disease (4) Psychosis Assessment/Plan dc iv fluids add spironolactone for hypokalemia symptomatic treatment f/u by psychiatry Subjective ROS Limited/Unobtainable: No Constitutional: Reports: no symptoms HEENT: Repors: no symptoms Respiratory: Reports: no symptoms Allergies: Coded Allergies: No Known Allergies (Verified , 10/22/06) Objective Last 24 Hour Vital Signs Date Time Temp Pulse Resp B/P (MAP) Pulse Ox O2 Delivery O2 Flow Rate FiO2 04/12/18 09:00 Room Air 04/12/18 08:01 97.8 98 20 109/77 (88) 97.8 04/12/18 04:00 98.9 87 18 93/66 (75) 95 98.9 04/12/18 00:00 98.9 93 18 96/57 (70) 97 98.9 04/11/18 21:00 Room Air 04/11/18 20:00 99.1 98 18 93/70 (78) 98 99.1 04/11/18 16:00 98.3 85 19 130/60 (83) 99 98.3 04/11/18 12:00 97.5 93 18 96/54 (68) 97 97.5 04/11/18 12:00 101 Intake and Output 04/11/18 04/12/18 19:00 07:00 Intake Total 150 ml 1555 ml Output Total 0 ml 800 ml Balance 150 ml 755 ml Intake Oral 150 ml 480 ml IV Total 1075 ml Output Urine Total 0 ml 800 ml Stool Total 0 ml General Appearance: WD/WN HEENT: normocephalic, atraumatic Respiratory/Chest: chest wall non-tender Cardiovascular: normal peripheral pulses, normal rate Abdomen: normal bowel sounds Genitourinary: normal external genitalia Microbiology Date/Time Source Procedure Growth Status 04/10/18 17:30 Nasal Nares Right MRSA Culture - Final NO METHICILLIN RESISTANT STAPH AUREUS... Complete 04/10/18 17:30 Rectum VRE Culture - Final NO VANCOMYCIN RESISTANT ENTEROCOCCUS ... Complete 04/10/18 17:30 Rectum - Final NO CARBAPENEM-RESISTANT ENTEROBACTERI... Complete Laboratory Tests 04/12/18 06:15: White Blood Count 7.6, Red Blood Count 4.01L, Hemoglobin 12.2L, Hematocrit 35.0L , Mean Corpuscular Volume 87, Mean Corpuscular Hemoglobin 30.5, Mean Corpuscular Hemoglobin Concent 35.0, Red Cell Distribution Width 13.8, Platelet Count 204, Mean Platelet Volume 6.9, Neutrophils (%) (Auto) 75.7H, Lymphocytes ( %) (Auto) 16.0L, Monocytes (%) (Auto) 6.9, Eosinophils (%) (Auto) 0.4, Basophils (%) (Auto) 1.0, Sodium Level 138, Potassium Level 2.7*L, Chloride Level 97L, Carbon Dioxide Level 34H, Anion Gap 7, Blood Urea Nitrogen 17, Creatinine 0.8, Estimat Glomerular Filtration Rate > 60, Glucose Level 131H, Calcium Level 9.2, Hepatitis A IgM Antibody [Pending], Hepatitis B Surface Antigen [Pending], Hepatitis B Core IgM Antibody [Pending], Hepatitis C Antibody [Pending] Current Medications Medications (Trade) Dose Ordered Sig/Clyde Route PRN Reason Start Time Stop Time Status Last Admin Dose Admin Dextrose (Dextrose 50%) 25 ml PRN IV Hypoglycemia 04/11/18 15:15 05/10/18 16:44 Dextrose (Dextrose 50%) 50 ml PRN IV hypoglycemia 04/11/18 15:15 05/10/18 16:44 Diazepam (Valium) 10 mg Q6H PRN ORAL For Anxiety 04/11/18 17:30 04/18/18 11:29 Divalproex Sodium (Depakote) 500 mg BEDTIME ORAL 04/11/18 21:00 05/11/18 20:59 04/11/18 20:36 Folic Acid 1 mg/ Magnesium Sulfate 2000 mg/ Multivitamins 10 ml/Sodium Chloride 1,014.2 ml @ 125 mls/ hr Q24H IV 04/11/18 23:00 05/10/18 22:59 04/11/18 23:13 Heparin Sodium (Porcine) (Heparin 5000 units/ml) 5,000 units EVERY 12 HOURS SUBQ 04/11/18 21:00 05/10/18 20:59 04/12/18 08:47 Insulin Aspart (NovoLOG) BEFORE MEALS AND HS SUBQ 04/11/18 16:30 05/10/18 20:59 04/12/18 06:18 Morphine Sulfate (Morphine Sulfate) 1 mg Q4H PRN IVP For Pain 04/11/18 16:45 04/17/18 16:44 Ondansetron HCl (Zofran) 4 mg Q6H PRN IVP Nausea & Vomiting 04/11/18 16:45 05/10/18 16:44 Potassium Chloride (K-Dur) 40 meq ONCE ORAL 04/12/18 11:00 04/12/18 12:00 04/12/18 10:59 Sodium Chloride 1,000 ml @ 50 mls/hr Q20H IV 04/11/18 15:14 05/10/18 15:13 04/11/18 17:45 Marion Schneider MD Apr 12, 2018 11:41
[2018-04-12 12:00] VITALS: BP 94/63
--- NOTE | 2018-04-12 13:42 | GI Initial Consult Note ---
History of Present Illness General Date patient seen: Apr 12, 2018 Time patient seen: 14:15 Reason for Hospitalization: Alcohol Intoxication Referring physician: DHARA JIN Reason for Consultation: ETOH ABUSE Present Illness HPI Patient present by paramedics for reports of alcohol intoxication patient himself is not awake Is not verbally responsive with us responds minimally to physical stimuli Paramedics reported vomiting prior to arrival History of present illness is otherwise significantly limited Unknown regarding any other trauma GI consulted for AMS 2/2 to ETOH abuse. ROS limited, pt seen awake alert NAD with active N/V. Currently on a diet, states he has been drinking. Has very vague answers. Unable to obtain proper history. Labs reviewed show hypokalemia , anemia, abnormal LFTs. Abdomen distended and firm. Unknown history of endoscopy / colonoscopy. Med list reviewed/reconciled: Yes Allergies: Coded Allergies: No Known Allergies (Verified , 10/22/06) Patient History Limited by: medical condition History Provided By: Medical Record [facility] Narrative Past Medical History: No History, Except For Hx Hypertension: Yes History Of Psychiatric Problem: Yes - Anxiety, Depression ETOH abuse Social History: Reports: alcohol use Review of Systems All Other Systems: limited Physical Exam Vital Signs Date Time Temp Pulse Resp B/P (MAP) Pulse Ox O2 Delivery O2 Flow Rate FiO2 04/10/18 12:21 98.1 118 20 118/81 94 Room Air 98.1 Sp02 EP Interpretation: reviewed, normal Labs Laboratory Tests Test 04/12/18 06:15 White Blood Count 7.6 K/UL (4.8-10.8) Red Blood Count 4.01 M/UL (4.70-6.10) L Hemoglobin 12.2 G/DL (14.2-18.0) L Hematocrit 35.0 % (42.0-52.0) L Mean Corpuscular Volume 87 FL (80-99) Mean Corpuscular Hemoglobin 30.5 PG (27.0-31.0) Mean Corpuscular Hemoglobin Concent 35.0 G/DL (32.0-36.0) Red Cell Distribution Width 13.8 % (11.6-14.8) Platelet Count 204 K/UL (150-450) Mean Platelet Volume 6.9 FL (6.5-10.1) Neutrophils (%) (Auto) 75.7 % (45.0-75.0) H Lymphocytes (%) (Auto) 16.0 % (20.0-45.0) L Monocytes (%) (Auto) 6.9 % (1.0-10.0) Eosinophils (%) (Auto) 0.4 % (0.0-3.0) Basophils (%) (Auto) 1.0 % (0.0-2.0) Sodium Level 138 MMOL/L (136-145) Potassium Level 2.7 MMOL/L (3.5-5.1) *L Chloride Level 97 MMOL/L (98-107) L Carbon Dioxide Level 34 MMOL/L (21-32) H Anion Gap 7 mmol/L (5-15) Blood Urea Nitrogen 17 mg/dL (7-18) Creatinine 0.8 MG/DL (0.55-1.30) Estimat Glomerular Filtration Rate > 60 mL/min (>60) Glucose Level 131 MG/DL (74-106) H Calcium Level 9.2 MG/DL (8.5-10.1) Hepatitis A IgM Antibody Pending Hepatitis B Surface Antigen Pending Hepatitis B Core IgM Antibody Pending Hepatitis C Antibody Pending General Appearance: well appearing, no apparent distress, alert Head: normocephalic EENT: PERRL/EOMI, normal ENT inspection Neck: supple Respiratory: normal breath sounds, no respiratory distress Cardiovascular: normal rate Gastrointestinal: normal inspection, non tender, soft, normal bowel sounds, distended, ascites Rectal: deferred Genitourinary: deferred Musculoskeletal: normal inspection, back normal Neurologic: alert, responsive Skin: normal inspection, normal color, no rash, warm/dry, palpation normal, well hydrated Lymphatic: normal inspection, no adenopathy Current Medications Current Medications Medications (Trade) Dose Ordered Sig/Clyde Route PRN Reason Start Time Stop Time Status Last Admin Dose Admin Dextrose (Dextrose 50%) 25 ml PRN IV Hypoglycemia 04/11/18 15:15 05/10/18 16:44 Dextrose (Dextrose 50%) 50 ml PRN IV hypoglycemia 04/11/18 15:15 05/10/18 16:44 Diazepam (Valium) 10 mg Q6H PRN ORAL For Anxiety 04/11/18 17:30 04/18/18 11:29 Divalproex Sodium (Depakote) 500 mg BEDTIME ORAL 04/11/18 21:00 05/11/18 20:59 04/11/18 20:36 Folic Acid 1 mg/ Magnesium Sulfate 2000 mg/ Multivitamins 10 ml/Sodium Chloride 1,014.2 ml @ 125 mls/ hr Q24H IV 04/11/18 23:00 05/10/18 22:59 04/11/18 23:13 Heparin Sodium (Porcine) (Heparin 5000 units/ml) 5,000 units EVERY 12 HOURS SUBQ 04/11/18 21:00 05/10/18 20:59 04/12/18 08:47 Insulin Aspart (NovoLOG) BEFORE MEALS AND HS SUBQ 04/11/18 16:30 05/10/18 20:59 04/12/18 11:49 Morphine Sulfate (Morphine Sulfate) 1 mg Q4H PRN IVP For Pain 04/11/18 16:45 04/17/18 16:44 Ondansetron HCl (Zofran) 4 mg Q6H PRN IVP Nausea & Vomiting 04/11/18 16:45 05/10/18 16:44 Spironolactone (Aldactone) 25 mg EVERY 12 HOURS ORAL 04/12/18 21:00 05/12/18 20:59 GI: Plan Problems: (1) Acidosis (2) Alcoholic liver disease (3) Acute encephalopathy (4) Acute alcoholic intoxication Plan fu abdominal US >> paracentesis if needed banana bag low dose lactulose + xifaxan needs discriminant function calculated, coags for tomorrow. cardiac diet anemia work up OB stool r/o GI bleed, will consider EGD pending work up monitor H&H, prn transfusions bowel regime ppi fu labs, trend LFTs Discussed with Dr. Rich. Thank you for this patient referral, we will follow. The patient was seen and examined at bedside and all new and available data was reviewed in the patients chart. I agree with the above findings, impression and plan. (Patient seen earlier today. Signature stamp does not reflect patient encounter time.). - MD Luana Marrufo,[facility] EDUCATIONAL RESOURCE COORDINATOR Apr 12, 2018 13:42
--- NOTE | 2018-04-12 14:25 | Cardiology Report ---
APPROVED REPORT EKG Measurement Heart [id number] Sinus tachycardia Incomplete right bundle branch block Nonspecific ST abnormality Prolonged QT Abnormal ECG
--- NOTE | 2018-04-12 14:38 | General Progress Note ---
Assessment/Plan Status: stable Assessment/Plan alcohol intoxication Alcohol withdrawal Encephalopathy due to substance/alcohol valium prn depakote cont to monitor provided ro/st Subjective Date patient seen: Apr 12, 2018 Neurologic/Psychiatric: Reports: anxiety, depressed, emotional problems Allergies: Coded Allergies: No Known Allergies (Verified , 10/22/06) Subjective the pt refused ultra sound and ate/drank Objective Last 24 Hour Vital Signs Date Time Temp Pulse Resp B/P (MAP) Pulse Ox O2 Delivery O2 Flow Rate FiO2 04/12/18 12:00 98.2 103 20 94/63 (73) 100 98.2 04/12/18 09:00 Room Air 04/12/18 08:01 97.8 98 20 109/77 (88) 97.8 04/12/18 04:00 98.9 87 18 93/66 (75) 95 98.9 04/12/18 00:00 98.9 93 18 96/57 (70) 97 98.9 04/11/18 21:00 Room Air 04/11/18 20:00 99.1 98 18 93/70 (78) 98 99.1 04/11/18 16:00 98.3 85 19 130/60 (83) 99 98.3 Intake and Output 04/11/18 04/12/18 19:00 07:00 Intake Total 150 ml 1555 ml Output Total 0 ml 800 ml Balance 150 ml 755 ml Intake Oral 150 ml 480 ml IV Total 1075 ml Output Urine Total 0 ml 800 ml Stool Total 0 ml Laboratory Tests 04/12/18 06:15: White Blood Count 7.6, Red Blood Count 4.01L, Hemoglobin 12.2L, Hematocrit 35.0L , Mean Corpuscular Volume 87, Mean Corpuscular Hemoglobin 30.5, Mean Corpuscular Hemoglobin Concent 35.0, Red Cell Distribution Width 13.8, Platelet Count 204, Mean Platelet Volume 6.9, Neutrophils (%) (Auto) 75.7H, Lymphocytes ( %) (Auto) 16.0L, Monocytes (%) (Auto) 6.9, Eosinophils (%) (Auto) 0.4, Basophils (%) (Auto) 1.0, Sodium Level 138, Potassium Level 2.7*L, Chloride Level 97L, Carbon Dioxide Level 34H, Anion Gap 7, Blood Urea Nitrogen 17, Creatinine 0.8, Estimat Glomerular Filtration Rate > 60, Glucose Level 131H, Calcium Level 9.2, Hepatitis A IgM Antibody [Pending], Hepatitis B Surface Antigen [Pending], Hepatitis B Core IgM Antibody [Pending], Hepatitis C Antibody [Pending] Height (Feet): 5 Height (Inches): 8.00 Weight (Pounds): 165 General Appearance: no apparent distress, alert Neurologic: oriented x 3, responsive, depressed affect Aubrey Roberts MD Apr 12, 2018 14:38
[2018-04-12 15:59] VITALS: BP 99/54
[2018-04-12] MEDS: Lactulose 10gm/15ml UDC ORAL SCH (17:31)
--- NOTE | 2018-04-12 18:23 | Internal Med Progress Note ---
Subjective Date of Service: Apr 12, 2018 Physician Name Josue Shah Attending Physician Michael Lutz MD Current Medications Medications (Trade) Dose Ordered Sig/Clyde Route PRN Reason Start Time Stop Time Status Last Admin Dose Admin Dextrose (Dextrose 50%) 25 ml PRN IV Hypoglycemia 04/11/18 15:15 05/10/18 16:44 Dextrose (Dextrose 50%) 50 ml PRN IV hypoglycemia 04/11/18 15:15 05/10/18 16:44 Diazepam (Valium) 10 mg Q6H PRN ORAL For Anxiety 04/11/18 17:30 04/18/18 11:29 Divalproex Sodium (Depakote) 500 mg BEDTIME ORAL 04/11/18 21:00 05/11/18 20:59 04/11/18 20:36 Folic Acid 1 mg/ Magnesium Sulfate 2000 mg/ Multivitamins 10 ml/Sodium Chloride 1,014.2 ml @ 125 mls/ hr Q24H IV 04/11/18 23:00 05/10/18 22:59 04/11/18 23:13 Heparin Sodium (Porcine) (Heparin 5000 units/ml) 5,000 units EVERY 12 HOURS SUBQ 04/11/18 21:00 05/10/18 20:59 04/12/18 08:47 Insulin Aspart (NovoLOG) BEFORE MEALS AND HS SUBQ 04/11/18 16:30 05/10/18 20:59 04/12/18 16:33 Lactulose (Cephulac) 10 gm THREE TIMES A DAY ORAL 04/12/18 18:00 05/12/18 17:59 04/12/18 17:31 Morphine Sulfate (Morphine Sulfate) 1 mg Q4H PRN IVP For Pain 04/11/18 16:45 04/17/18 16:44 Ondansetron HCl (Zofran) 4 mg Q6H PRN IVP Nausea & Vomiting 04/11/18 16:45 05/10/18 16:44 Rifaximin (Xifaxan) 550 mg EVERY 12 HOURS ORAL 04/12/18 21:00 04/19/18 20:59 Spironolactone (Aldactone) 25 mg EVERY 12 HOURS ORAL 04/12/18 21:00 05/12/18 20:59 Allergies: Coded Allergies: No Known Allergies (Verified , 3/30/07) ROS Limited/Unobtainable: No Constitutional: Reports: no symptoms HEENT: Reports: no symptoms Cardiovascular: Reports: no symptoms Respiratory: Reports: no symptoms Gastrointestinal/Abdominal: Reports: no symptoms Genitourinary: Reports: no symptoms Neurologic/Psychiatric: Reports: no symptoms Subjective 57 YO M admitted with alcohol intoxication. Now severe hypokalemia. Cover for Int Caio-Dr Lutz. Objective Last Vital Signs Date Time Temp Pulse Resp B/P (MAP) Pulse Ox O2 Delivery O2 Flow Rate FiO2 04/12/18 15:59 98.1 102 20 99/54 (69) 97 98.1 04/12/18 09:00 Room Air Laboratory Tests Test 04/12/18 06:15 White Blood Count 7.6 K/UL (4.8-10.8) Red Blood Count 4.01 M/UL (4.70-6.10) L Hemoglobin 12.2 G/DL (14.2-18.0) L Hematocrit 35.0 % (42.0-52.0) L Mean Corpuscular Volume 87 FL (80-99) Mean Corpuscular Hemoglobin 30.5 PG (27.0-31.0) Mean Corpuscular Hemoglobin Concent 35.0 G/DL (32.0-36.0) Red Cell Distribution Width 13.8 % (11.6-14.8) Platelet Count 204 K/UL (150-450) Mean Platelet Volume 6.9 FL (6.5-10.1) Neutrophils (%) (Auto) 75.7 % (45.0-75.0) H Lymphocytes (%) (Auto) 16.0 % (20.0-45.0) L Monocytes (%) (Auto) 6.9 % (1.0-10.0) Eosinophils (%) (Auto) 0.4 % (0.0-3.0) Basophils (%) (Auto) 1.0 % (0.0-2.0) Sodium Level 138 MMOL/L (136-145) Potassium Level 2.7 MMOL/L (3.5-5.1) *L Chloride Level 97 MMOL/L (98-107) L Carbon Dioxide Level 34 MMOL/L (21-32) H Anion Gap 7 mmol/L (5-15) Blood Urea Nitrogen 17 mg/dL (7-18) Creatinine 0.8 MG/DL (0.55-1.30) Estimat Glomerular Filtration Rate > 60 mL/min (>60) Glucose Level 131 MG/DL (74-106) H Calcium Level 9.2 MG/DL (8.5-10.1) Hepatitis A IgM Antibody Pending Hepatitis B Surface Antigen Pending Hepatitis B Core IgM Antibody Pending Hepatitis C Antibody Pending Microbiology Date/Time Source Procedure Growth Status 04/10/18 17:30 Nasal Nares Right MRSA Culture - Final NO METHICILLIN RESISTANT STAPH AUREUS... Complete 04/10/18 17:30 Rectum VRE Culture - Final NO VANCOMYCIN RESISTANT ENTEROCOCCUS ... Complete 04/10/18 17:30 Rectum - Final NO CARBAPENEM-RESISTANT ENTEROBACTERI... Complete Intake and Output 04/11/18 04/12/18 19:00 07:00 Intake Total 150 ml 1555 ml Output Total 0 ml 800 ml Balance 150 ml 755 ml Intake Oral 150 ml 480 ml IV Total 1075 ml Output Urine Total 0 ml 800 ml Stool Total 0 ml Objective PHYSICAL EXAMINATION: GENERAL: The patient is well-developed and well-nourished disheveled male, in no apparent distress. HEENT: Eyes, pupils equal and responsive to light and accommodation. Extraocular movements are intact. NECK: Supple without lymphadenopathy. CHEST: Lungs are clear to auscultation bilaterally without wheezes or rales. CARDIOVASCULAR: Regular rate. S1 and S2 are normal without murmurs, rubs, or gallops. ABDOMEN: Soft, nontender, and nondistended. Positive bowel sounds. No evidence of hepatosplenomegaly. Currently, no rebound or guarding noted. EXTREMITIES: Negative for clubbing, cyanosis, or edema. RECTAL: Refused. GENITAL: Refused. NEUROLOGIC: Cranial nerves II through XII are grossly intact without focal deficits. Motor strength is 5/5 bilaterally. Deep tendon reflexes are 2+ plantar. Assessment/Plan Problem List: (1) Renal failure (2) Acute alcoholic intoxication (3) Hyponatremia (4) Hypokalemia Assessment & Plan: Severe. Replace KCL IV (5) Acute encephalopathy (6) Alcoholic liver disease Assessment & Plan: Due to alcoholism. See GI note. (7) Acidosis Status: not improved Josue Shah MD Apr 12, 2018 18:23
[2018-04-12 20:00] VITALS: BP 93/61
[2018-04-12] MEDS: Spironolactone 25mg tab ORAL SCH (21:26)
[2018-04-12] MEDS: Depakote 500mg tab ORAL SCH (21:26)
[2018-04-12] MEDS: Folic Acid 1 MG, Magnesium Sulfate 2,000 MG, Multivitamin - 12 Injection 10 ML in NS w/... IV SCH (23:00)
[2018-04-13] VITALS: BP 118/77
[2018-04-13 04:00] VITALS: BP 94/60
[2018-04-13] MEDS: NovoLOG Insulin Flexpen SUBQ SCH ×4 (06:24→20:56)
[2018-04-13 07:11] LABS: ALANINE AMINOTRANSFERASE 274 U/L (12-78); ALBUMIN 2.6 G/DL (3.4-5.0); ALBUMIN/GLOBULIN RATIO 0.7 (1.0-2.7); ALKALINE PHOSPHATASE 126 U/L (46-116); ANION GAP 8 mmol/L (5-15); ASPARTATE AMINO TRANSFERASE 268 U/L (15-37); BILIRUBIN,TOTAL 2.4 MG/DL (0.2-1.0); BLOOD UREA NITROGEN 17 mg/dL (7-18); CALCIUM 9.1 MG/DL (8.5-10.1); CARBON DIOXIDE 28 MMOL/L (21-32); CHLORIDE 100 MMOL/L (98-107); CREATININE 0.8 MG/DL (0.55-1.30); PHOSPHORUS 2.9 MG/DL (2.5-4.9); POTASSIUM 3.5 MMOL/L (3.5-5.1); SODIUM 136 MMOL/L (136-145)
[2018-04-13 07:25] LABS: BILIRUBIN,DIRECT 1.3 MG/DL (0.0-0.3)
[2018-04-13 08:00] VITALS: BP 103/65
[2018-04-13] MEDS: Lactulose 10gm/15ml UDC ORAL SCH ×2 (08:54→13:19)
[2018-04-13] MEDS: Spironolactone 25mg tab ORAL SCH ×2 (08:54→20:55)
[2018-04-13] MEDS: Folic Acid 1 MG, Magnesium Sulfate 2,000 MG, Multivitamin - 12 Injection 10 ML in NS w/... IV SCH (09:20)
[2018-04-13 09:44] LABS: BASOPHILS % (AUTO) 1.2 % (0.0-2.0); EOSINOPHILS % (AUTO) 0.7 % (0.0-3.0); HEMATOCRIT 32.6 % (42.0-52.0); HEMOGLOBIN 11.2 G/DL (14.2-18.0); LYMPHOCYTES % (AUTO) 18.8 % (20.0-45.0); MEAN CORPUSCULAR VOLUME 87 FL (80-99); MONOCYTES % (AUTO) 8.2 % (1.0-10.0); NEUTROPHILS % (AUTO) 71.2 % (45.0-75.0); PLATELET COUNT 203 K/UL (150-450); RED BLOOD COUNT 3.73 M/UL (4.70-6.10); RED CELL DISTRIBUTION WIDTH 13.8 % (11.6-14.8); WHITE BLOOD COUNT 6.4 K/UL (4.8-10.8)
--- NOTE | 2018-04-13 10:06 | Diagnostic Imaging Report ---
Indication: Abdominal distention, abnormal liver function tests, abnormal renal function tests Technique: Cantu-scale and duplex images of the upper abdomen were obtained Comparison: none Findings: Gallbladder demonstrates sludge. No stones. No gallbladder wall thickening nor pericholecystic fluid Sonographic Metz's sign is negative. Common bile duct measures 4 mm in diameter. No intrahepatic biliary ductal dilatation. Liver demonstrates diffusely increased echogenicity, consistent with diffuse hepatocellular disease, most likely fatty change. It is enlarged. No surface nodularity Portal vein and hepatic veins are patent. Pancreas is unremarkable. Spleen is unremarkable. Left kidney measures 12.1 cm in length. Right kidney measures 11.9 cm length. Both kidneys demonstrate normal echogenicity. There is no hydronephrosis. Left kidney demonstrates a 9 mm diameter shadowing focus in the renal sinus, likely calyceal calculus. No focal abnormality on the right . Abdominal aorta is partially obscured by bowel gas, visualized portions are non-aneurysmal . Impression: Gallbladder sludge. Negative for gallstones or dilated ducts Liver demonstrates diffusely increased echogenicity, consistent with diffuse hepatocellular disease, most likely fatty change Likely 9 mm nonobstructive left renal calculus.
[2018-04-13] MEDS: Heparin 5000 units/ml inj SUBQ SCH ×2 (10:50→20:56)
[2018-04-13 12:00] VITALS: BP 103/60
--- NOTE | 2018-04-13 12:52 | Pulmonology Progress Note ---
Assessment/Plan Problems: (1) Acute encephalopathy (2) Hyponatremia (3) Alcoholic liver disease (4) Psychosis Assessment/Plan on banana bag on spironolactone for hypokalemia, K is better today symptomatic treatment f/u by psychiatry pt/ot d/w nurse Subjective ROS Limited/Unobtainable: No Interval Events: feeling better, still weak Constitutional: Reports: no symptoms HEENT: Repors: no symptoms Allergies: Coded Allergies: No Known Allergies (Verified , 10/22/06) Objective Last 24 Hour Vital Signs Date Time Temp Pulse Resp B/P (MAP) Pulse Ox O2 Delivery O2 Flow Rate FiO2 04/13/18 04:00 99.7 85 16 94/60 (71) 94 99.7 04/13/18 00:00 99.3 88 18 118/77 (91) 99 99.3 04/12/18 21:00 Room Air 04/12/18 20:00 99.9 103 22 93/61 (72) 97 99.9 04/12/18 15:59 98.1 102 20 99/54 (69) 97 98.1 Intake and Output 04/12/18 04/13/18 19:00 07:00 Intake Total 930 ml 1000 ml Balance 930 ml 1000 ml Intake Oral 680 ml 1000 ml IV Total 250 ml # Voids 3 2 General Appearance: cachetic HEENT: normocephalic, atraumatic Respiratory/Chest: chest wall non-tender, normal breath sounds Cardiovascular: normal rate, regular rhythm, no JVD Abdomen: no organomegaly Genitourinary: normal external genitalia Extremities: no clubbing Skin: no lesions Microbiology Date/Time Source Procedure Growth Status 04/10/18 17:30 Nasal Nares Right MRSA Culture - Final NO METHICILLIN RESISTANT STAPH AUREUS... Complete 04/10/18 17:30 Rectum VRE Culture - Final NO VANCOMYCIN RESISTANT ENTEROCOCCUS ... Complete 04/10/18 17:30 Rectum - Final NO CARBAPENEM-RESISTANT ENTEROBACTERI... Complete Laboratory Tests 04/13/18 05:50: Prothrombin Time 9.9, Prothromb Time International Ratio 1.0, Activated Partial Thromboplast Time 23, Sodium Level 136, Potassium Level 3.5, Chloride Level 100 , Carbon Dioxide Level 28, Anion Gap 8, Blood Urea Nitrogen 17, Creatinine 0.8, Estimat Glomerular Filtration Rate > 60, Glucose Level 125H, Calcium Level 9.1, Phosphorus Level 2.9, Magnesium Level 1.8, Total Bilirubin 2.4H, Direct Bilirubin 1.3H, Aspartate Amino Transf (AST/SGOT) 268H, Alanine Aminotransferase (ALT/SGPT) 274H, Alkaline Phosphatase 126H, Ammonia < 10L, Total Protein 6.2L, Albumin 2.6L, Globulin 3.6, Albumin/Globulin Ratio 0.7L 04/13/18 08:30: White Blood Count 6.4, Red Blood Count 3.73L, Hemoglobin 11.2L, Hematocrit 32.6L , Mean Corpuscular Volume 87, Mean Corpuscular Hemoglobin 30.0, Mean Corpuscular Hemoglobin Concent 34.4, Red Cell Distribution Width 13.8, Platelet Count 203, Mean Platelet Volume 6.3L, Neutrophils (%) (Auto) 71.2, Lymphocytes ( %) (Auto) 18.8L, Monocytes (%) (Auto) 8.2, Eosinophils (%) (Auto) 0.7, Basophils (%) (Auto) 1.2 Current Medications Medications (Trade) Dose Ordered Sig/Clyde Route PRN Reason Start Time Stop Time Status Last Admin Dose Admin Dextrose (Dextrose 50%) 25 ml PRN IV Hypoglycemia 04/11/18 15:15 05/10/18 16:44 Dextrose (Dextrose 50%) 50 ml PRN IV hypoglycemia 04/11/18 15:15 05/10/18 16:44 Diazepam (Valium) 10 mg Q6H PRN ORAL For Anxiety 04/11/18 17:30 04/18/18 11:29 Divalproex Sodium (Depakote) 500 mg BEDTIME ORAL 04/11/18 21:00 05/11/18 20:59 04/12/18 21:26 Folic Acid 1 mg/ Magnesium Sulfate 2000 mg/ Multivitamins 10 ml/Sodium Chloride 1,014.2 ml @ 125 mls/ hr Q24H IV 04/11/18 23:00 05/10/18 22:59 04/13/18 09:20 Heparin Sodium (Porcine) (Heparin 5000 units/ml) 5,000 units EVERY 12 HOURS SUBQ 04/11/18 21:00 05/10/18 20:59 04/13/18 10:50 Insulin Aspart (NovoLOG) BEFORE MEALS AND HS SUBQ 04/11/18 16:30 05/10/18 20:59 04/13/18 12:28 Lactulose (Cephulac) 10 gm THREE TIMES A DAY ORAL 04/12/18 18:00 05/12/18 17:59 04/13/18 08:54 Morphine Sulfate (Morphine Sulfate) 1 mg Q4H PRN IVP For Pain 04/11/18 16:45 04/17/18 16:44 Ondansetron HCl (Zofran) 4 mg Q6H PRN IVP Nausea & Vomiting 04/11/18 16:45 05/10/18 16:44 Rifaximin (Xifaxan) 550 mg EVERY 12 HOURS ORAL 04/12/18 21:00 04/19/18 20:59 04/13/18 08:54 Spironolactone (Aldactone) 25 mg EVERY 12 HOURS ORAL 04/12/18 21:00 05/12/18 20:59 04/13/18 08:54 Marion Schneider MD Apr 13, 2018 12:52
--- NOTE | 2018-04-13 14:19 | GI Progress Note ---
Assessment/Plan Problems: (1) Acute encephalopathy ICD Codes: G93.40 - Encephalopathy, unspecified SNOMED: 11593051, 967908470 (2) Alcoholic liver disease ICD Codes: K70.9 - Alcoholic liver disease, unspecified SNOMED: 46299184 (3) Hyponatremia ICD Codes: E87.1 - Hypo-osmolality and hyponatremia SNOMED: 10600128 (4) Acute alcoholic intoxication ICD Codes: F10.929 - Alcohol use, unspecified with intoxication, unspecified SNOMED: 57868327 (5) Psychosis ICD Codes: F29 - Unspecified psychosis not due to a substance or known physiological condition SNOMED: 09371283 Status: progressing Status Narrative Discussed with Dr. Rich. Assessment/Plan fu abdominal US >> Liver demonstrates diffusely increased echogenicity, consistent with diffuse hepatocellular disease, most likely fatty change discriminant function calculated >> NO steroids hepatitis panel negative banana bag ativan prn low dose lactulose + xifaxan soft cardiac diet anemia work up OB stool r/o GI bleed monitor H&H, prn transfusions bowel regime ppi fu labs, trend LFTs The patient was seen and examined at bedside and all new and available data was reviewed in the patients chart. I agree with the above findings, impression and plan. (Patient seen earlier today. Signature stamp does not reflect patient encounter time.). - Jarod Rich MD Subjective Gastrointestinal/Abdominal: Reports: no symptoms Objective Last 24 Hour Vital Signs Date Time Temp Pulse Resp B/P (MAP) Pulse Ox O2 Delivery O2 Flow Rate FiO2 04/13/18 12:00 98.0 91 18 103/60 (74) 95 98.0 04/13/18 08:00 99.2 90 19 103/65 (78) 96 99.2 04/13/18 04:00 99.7 85 16 94/60 (71) 94 99.7 04/13/18 00:00 99.3 88 18 118/77 (91) 99 99.3 04/12/18 21:00 Room Air 04/12/18 20:00 99.9 103 22 93/61 (72) 97 99.9 04/12/18 15:59 98.1 102 20 99/54 (69) 97 98.1 Intake and Output 04/12/18 04/13/18 19:00 07:00 Intake Total 930 ml 1000 ml Balance 930 ml 1000 ml Intake Oral 680 ml 1000 ml IV Total 250 ml # Voids 3 2 Laboratory Tests Test 04/13/18 05:50 04/13/18 08:30 Prothrombin Time 9.9 SEC (9.30-11.50) Prothromb Time International Ratio 1.0 (0.9-1.1) Activated Partial Thromboplast Time 23 SEC (23-33) Sodium Level 136 MMOL/L (136-145) Potassium Level 3.5 MMOL/L (3.5-5.1) Chloride Level 100 MMOL/L (98-107) Carbon Dioxide Level 28 MMOL/L (21-32) Anion Gap 8 mmol/L (5-15) Blood Urea Nitrogen 17 mg/dL (7-18) Creatinine 0.8 MG/DL (0.55-1.30) Estimat Glomerular Filtration Rate > 60 mL/min (>60) Glucose Level 125 MG/DL (74-106) H Calcium Level 9.1 MG/DL (8.5-10.1) Phosphorus Level 2.9 MG/DL (2.5-4.9) Magnesium Level 1.8 MG/DL (1.8-2.4) Total Bilirubin 2.4 MG/DL (0.2-1.0) H Direct Bilirubin 1.3 MG/DL (0.0-0.3) H Aspartate Amino Transf (AST/SGOT) 268 U/L (15-37) H Alanine Aminotransferase (ALT/SGPT) 274 U/L (12-78) H Alkaline Phosphatase 126 U/L (46-116) H Ammonia < 10 umol/L (11-32) L Total Protein 6.2 G/DL (6.4-8.2) L Albumin 2.6 G/DL (3.4-5.0) L Globulin 3.6 g/dL Albumin/Globulin Ratio 0.7 (1.0-2.7) L White Blood Count 6.4 K/UL (4.8-10.8) Red Blood Count 3.73 M/UL (4.70-6.10) L Hemoglobin 11.2 G/DL (14.2-18.0) L Hematocrit 32.6 % (42.0-52.0) L Mean Corpuscular Volume 87 FL (80-99) Mean Corpuscular Hemoglobin 30.0 PG (27.0-31.0) Mean Corpuscular Hemoglobin Concent 34.4 G/DL (32.0-36.0) Red Cell Distribution Width 13.8 % (11.6-14.8) Platelet Count 203 K/UL (150-450) Mean Platelet Volume 6.3 FL (6.5-10.1) L Neutrophils (%) (Auto) 71.2 % (45.0-75.0) Lymphocytes (%) (Auto) 18.8 % (20.0-45.0) L Monocytes (%) (Auto) 8.2 % (1.0-10.0) Eosinophils (%) (Auto) 0.7 % (0.0-3.0) Basophils (%) (Auto) 1.2 % (0.0-2.0) Height (Feet): 5 Height (Inches): 8.00 Weight (Pounds): 165 General Appearance: WD/WN, no apparent distress, alert Cardiovascular: normal rate Respiratory/Chest: normal breath sounds, no respiratory distress Abdominal Exam: normal bowel sounds, non tender, soft Extremities: normal range of motion, non-tender Luisana Craft NP Apr 13, 2018 14:19
[2018-04-13 16:00] VITALS: BP 106/61
--- NOTE | 2018-04-13 18:12 | Internal Med Progress Note ---
Subjective Date of Service: Apr 13, 2018 Physician Name Josue Shah Attending Physician Michael Lutz MD Current Medications Medications (Trade) Dose Ordered Sig/Clyde Route PRN Reason Start Time Stop Time Status Last Admin Dose Admin Dextrose (Dextrose 50%) 25 ml PRN IV Hypoglycemia 04/11/18 15:15 05/10/18 16:44 Dextrose (Dextrose 50%) 50 ml PRN IV hypoglycemia 04/11/18 15:15 05/10/18 16:44 Diazepam (Valium) 10 mg Q6H PRN ORAL For Anxiety 04/11/18 17:30 04/18/18 11:29 Divalproex Sodium (Depakote) 500 mg BEDTIME ORAL 04/11/18 21:00 05/11/18 20:59 04/12/18 21:26 Folic Acid 1 mg/ Magnesium Sulfate 2000 mg/ Multivitamins 10 ml/Sodium Chloride 1,014.2 ml @ 125 mls/ hr Q24H IV 04/11/18 23:00 05/10/18 22:59 04/13/18 09:20 Heparin Sodium (Porcine) (Heparin 5000 units/ml) 5,000 units EVERY 12 HOURS SUBQ 04/11/18 21:00 05/10/18 20:59 04/13/18 10:50 Insulin Aspart (NovoLOG) BEFORE MEALS AND HS SUBQ 04/11/18 16:30 05/10/18 20:59 04/13/18 17:10 Lactulose (Cephulac) 10 gm DAILY ORAL 04/14/18 09:00 05/12/18 17:59 Morphine Sulfate (Morphine Sulfate) 1 mg Q4H PRN IVP For Pain 04/11/18 16:45 04/17/18 16:44 Ondansetron HCl (Zofran) 4 mg Q6H PRN IVP Nausea & Vomiting 04/11/18 16:45 05/10/18 16:44 Rifaximin (Xifaxan) 550 mg EVERY 12 HOURS ORAL 04/12/18 21:00 04/19/18 20:59 04/13/18 08:54 Spironolactone (Aldactone) 25 mg EVERY 12 HOURS ORAL 04/12/18 21:00 05/12/18 20:59 04/13/18 08:54 Allergies: Coded Allergies: No Known Allergies (Verified , 10/22/06) ROS Limited/Unobtainable: No Constitutional: Reports: no symptoms HEENT: Reports: no symptoms Cardiovascular: Reports: no symptoms Respiratory: Reports: no symptoms Gastrointestinal/Abdominal: Reports: abdominal pain, diarrhea, nausea, vomiting Genitourinary: Reports: no symptoms Neurologic/Psychiatric: Reports: no symptoms Subjective 57 YO M admitted with alcohol intoxication. Now severe hypokalemia. Cover for Int Caio-Dr Lutz. Objective Last Vital Signs Date Time Temp Pulse Resp B/P (MAP) Pulse Ox O2 Delivery O2 Flow Rate FiO2 04/13/18 12:00 98.0 91 18 103/60 (74) 95 98.0 04/12/18 21:00 Room Air Laboratory Tests Test 04/13/18 05:50 04/13/18 08:30 Prothrombin Time 9.9 SEC (9.30-11.50) Prothromb Time International Ratio 1.0 (0.9-1.1) Activated Partial Thromboplast Time 23 SEC (23-33) Sodium Level 136 MMOL/L (136-145) Potassium Level 3.5 MMOL/L (3.5-5.1) Chloride Level 100 MMOL/L (98-107) Carbon Dioxide Level 28 MMOL/L (21-32) Anion Gap 8 mmol/L (5-15) Blood Urea Nitrogen 17 mg/dL (7-18) Creatinine 0.8 MG/DL (0.55-1.30) Estimat Glomerular Filtration Rate > 60 mL/min (>60) Glucose Level 125 MG/DL (74-106) H Calcium Level 9.1 MG/DL (8.5-10.1) Phosphorus Level 2.9 MG/DL (2.5-4.9) Magnesium Level 1.8 MG/DL (1.8-2.4) Total Bilirubin 2.4 MG/DL (0.2-1.0) H Direct Bilirubin 1.3 MG/DL (0.0-0.3) H Aspartate Amino Transf (AST/SGOT) 268 U/L (15-37) H Alanine Aminotransferase (ALT/SGPT) 274 U/L (12-78) H Alkaline Phosphatase 126 U/L (46-116) H Ammonia < 10 umol/L (11-32) L Total Protein 6.2 G/DL (6.4-8.2) L Albumin 2.6 G/DL (3.4-5.0) L Globulin 3.6 g/dL Albumin/Globulin Ratio 0.7 (1.0-2.7) L White Blood Count 6.4 K/UL (4.8-10.8) Red Blood Count 3.73 M/UL (4.70-6.10) L Hemoglobin 11.2 G/DL (14.2-18.0) L Hematocrit 32.6 % (42.0-52.0) L Mean Corpuscular Volume 87 FL (80-99) Mean Corpuscular Hemoglobin 30.0 PG (27.0-31.0) Mean Corpuscular Hemoglobin Concent 34.4 G/DL (32.0-36.0) Red Cell Distribution Width 13.8 % (11.6-14.8) Platelet Count 203 K/UL (150-450) Mean Platelet Volume 6.3 FL (6.5-10.1) L Neutrophils (%) (Auto) 71.2 % (45.0-75.0) Lymphocytes (%) (Auto) 18.8 % (20.0-45.0) L Monocytes (%) (Auto) 8.2 % (1.0-10.0) Eosinophils (%) (Auto) 0.7 % (0.0-3.0) Basophils (%) (Auto) 1.2 % (0.0-2.0) Intake and Output 04/12/18 04/13/18 19:00 07:00 Intake Total 930 ml 1000 ml Balance 930 ml 1000 ml Intake Oral 680 ml 1000 ml IV Total 250 ml # Voids 3 2 Objective PHYSICAL EXAMINATION: GENERAL: The patient is well-developed and well-nourished disheveled male, in no apparent distress. HEENT: Eyes, pupils equal and responsive to light and accommodation. Extraocular movements are intact. NECK: Supple without lymphadenopathy. CHEST: Lungs are clear to auscultation bilaterally without wheezes or rales. CARDIOVASCULAR: Regular rate. S1 and S2 are normal without murmurs, rubs, or gallops. ABDOMEN: Soft, nontender, and nondistended. Positive bowel sounds. No evidence of hepatosplenomegaly. Currently, no rebound or guarding noted. EXTREMITIES: Negative for clubbing, cyanosis, or edema. RECTAL: Refused. GENITAL: Refused. NEUROLOGIC: Cranial nerves II through XII are grossly intact without focal deficits. Motor strength is 5/5 bilaterally. Deep tendon reflexes are 2+ plantar. Assessment/Plan Problem List: (1) Renal failure (2) Acute alcoholic intoxication (3) Hyponatremia (4) Hypokalemia Assessment & Plan: Severe. Replace KCL oral (5) Acute encephalopathy Assessment & Plan: continue lactulose (6) Alcoholic liver disease Assessment & Plan: Due to alcoholism. See GI note. (7) Acidosis Status: progressing Josue Shah MD Apr 13, 2018 18:12
[2018-04-13] MEDS ORDERED: Simethicone 80mg tab ORAL PRN (19:45)
[2018-04-13 20:08] VITALS: BP 127/73
[2018-04-13] MEDS: Depakote 500mg tab ORAL SCH (20:55)
--- NOTE | 2018-04-13 22:00 | General Progress Note ---
Assessment/Plan Status: stable, progressing Assessment/Plan alcohol intoxication Alcohol withdrawal Encephalopathy due to substance/alcohol valium prn depakote cont to monitor provided ro/st Subjective Neurologic/Psychiatric: Reports: anxiety, depressed, emotional problems Allergies: Coded Allergies: No Known Allergies (Verified , 10/22/06) Objective Last 24 Hour Vital Signs Date Time Temp Pulse Resp B/P (MAP) Pulse Ox O2 Delivery O2 Flow Rate FiO2 04/13/18 21:24 Room Air 04/13/18 20:36 97.9 97.9 04/13/18 20:08 100.0 94 18 127/73 (91) 96 100.0 04/13/18 16:00 98.7 95 18 106/61 (76) 95 98.7 04/13/18 12:00 98.0 91 18 103/60 (74) 95 98.0 04/13/18 09:00 Room Air 04/13/18 08:00 99.2 90 19 103/65 (78) 96 99.2 04/13/18 04:00 99.7 85 16 94/60 (71) 94 99.7 04/13/18 00:00 99.3 88 18 118/77 (91) 99 99.3 Intake and Output 04/12/18 04/13/18 19:00 07:00 Intake Total 930 ml 1000 ml Balance 930 ml 1000 ml Intake Oral 680 ml 1000 ml IV Total 250 ml # Voids 3 2 Laboratory Tests 04/13/18 05:50: Prothrombin Time 9.9, Prothromb Time International Ratio 1.0, Activated Partial Thromboplast Time 23, Sodium Level 136, Potassium Level 3.5, Chloride Level 100 , Carbon Dioxide Level 28, Anion Gap 8, Blood Urea Nitrogen 17, Creatinine 0.8, Estimat Glomerular Filtration Rate > 60, Glucose Level 125H, Calcium Level 9.1, Phosphorus Level 2.9, Magnesium Level 1.8, Total Bilirubin 2.4H, Direct Bilirubin 1.3H, Aspartate Amino Transf (AST/SGOT) 268H, Alanine Aminotransferase (ALT/SGPT) 274H, Alkaline Phosphatase 126H, Ammonia < 10L, Total Protein 6.2L, Albumin 2.6L, Globulin 3.6, Albumin/Globulin Ratio 0.7L 04/13/18 08:30: White Blood Count 6.4, Red Blood Count 3.73L, Hemoglobin 11.2L, Hematocrit 32.6L , Mean Corpuscular Volume 87, Mean Corpuscular Hemoglobin 30.0, Mean Corpuscular Hemoglobin Concent 34.4, Red Cell Distribution Width 13.8, Platelet Count 203, Mean Platelet Volume 6.3L, Neutrophils (%) (Auto) 71.2, Lymphocytes ( %) (Auto) 18.8L, Monocytes (%) (Auto) 8.2, Eosinophils (%) (Auto) 0.7, Basophils (%) (Auto) 1.2 Height (Feet): 5 Height (Inches): 8.00 Weight (Pounds): 165 General Appearance: no apparent distress, alert Neurologic: oriented x 3, responsive, depressed affect Aubrey Roberts MD Apr 13, 2018 22:00
[2018-04-14 00:18] VITALS: BP 132/75
[2018-04-14 03:59] VITALS: BP 104/58
[2018-04-14] MEDS: NovoLOG Insulin Flexpen SUBQ SCH ×4 (05:54→20:18)
[2018-04-14 08:00] VITALS: BP 96/60
[2018-04-14] MEDS: Folic Acid 1 MG, Magnesium Sulfate 2,000 MG, Multivitamin - 12 Injection 10 ML in NS w/... IV SCH (08:03)
[2018-04-14] MEDS: Spironolactone 25mg tab ORAL SCH ×2 (09:00→20:16)
[2018-04-14] MEDS: Lactulose 10gm/15ml UDC ORAL SCH (09:39)
[2018-04-14 09:46] LABS: BASOPHILS % (AUTO) 1.2 % (0.0-2.0); EOSINOPHILS % (AUTO) 0.8 % (0.0-3.0); HEMATOCRIT 38.4 % (42.0-52.0); LYMPHOCYTES % (AUTO) 15.9 % (20.0-45.0); MEAN CORPUSCULAR VOLUME 88 FL (80-99); MONOCYTES % (AUTO) 8.4 % (1.0-10.0); NEUTROPHILS % (AUTO) 73.7 % (45.0-75.0); PLATELET COUNT 195 K/UL (150-450); RED BLOOD COUNT 4.39 M/UL (4.70-6.10); RED CELL DISTRIBUTION WIDTH 14.1 % (11.6-14.8); WHITE BLOOD COUNT 6.6 K/UL (4.8-10.8)
[2018-04-14 10:00] LABS: ALANINE AMINOTRANSFERASE 232 U/L (12-78); ALBUMIN 2.4 G/DL (3.4-5.0); ALBUMIN/GLOBULIN RATIO 0.7 (1.0-2.7); ALKALINE PHOSPHATASE 124 U/L (46-116); ANION GAP 7 mmol/L (5-15); ASPARTATE AMINO TRANSFERASE 157 U/L (15-37); BILIRUBIN,TOTAL 1.8 MG/DL (0.2-1.0); BLOOD UREA NITROGEN 14 mg/dL (7-18); CALCIUM 8.3 MG/DL (8.5-10.1); CARBON DIOXIDE 27 MMOL/L (21-32); CHLORIDE 101 MMOL/L (98-107); CREATININE 0.7 MG/DL (0.55-1.30); PHOSPHORUS 2.6 MG/DL (2.5-4.9); POTASSIUM 3.2 MMOL/L (3.5-5.1); SODIUM 135 MMOL/L (136-145)
[2018-04-14] MEDS: Heparin 5000 units/ml inj SUBQ SCH ×2 (10:02→20:17)
--- NOTE | 2018-04-14 10:39 | GI Progress Note ---
Assessment/Plan Problems: (1) Acute encephalopathy ICD Codes: G93.40 - Encephalopathy, unspecified SNOMED: 97844215, 452477030 (2) Alcoholic liver disease ICD Codes: K70.9 - Alcoholic liver disease, unspecified SNOMED: 67511204 (3) Hyponatremia ICD Codes: E87.1 - Hypo-osmolality and hyponatremia SNOMED: 60194488 (4) Acute alcoholic intoxication ICD Codes: F10.929 - Alcohol use, unspecified with intoxication, unspecified SNOMED: 81231803 (5) Psychosis ICD Codes: F29 - Unspecified psychosis not due to a substance or known physiological condition SNOMED: 28497093 Status: stable Status Narrative Discussed with Dr. Rich. Assessment/Plan fu abdominal US >> Liver demonstrates diffusely increased echogenicity, consistent with diffuse hepatocellular disease, most likely fatty change discriminant function calculated >> NO steroids hepatitis panel negative banana bag ativan prn low dose lactulose + xifaxan soft cardiac diet anemia work up OB stool r/o GI bleed monitor H&H, prn transfusions bowel regime ppi fu labs, trend LFTs The patient was seen and examined at bedside and all new and available data was reviewed in the patients chart. I agree with the above findings, impression and plan. (Patient seen earlier today. Signature stamp does not reflect patient encounter time.). - Jarod Rich MD Subjective Gastrointestinal/Abdominal: Reports: no symptoms Objective Last 24 Hour Vital Signs Date Time Temp Pulse Resp B/P (MAP) Pulse Ox O2 Delivery O2 Flow Rate FiO2 04/14/18 09:00 Room Air 04/14/18 08:00 98.2 73 20 96/60 (72) 94 98.2 04/14/18 03:59 98.6 85 19 104/58 (73) 100 98.6 04/14/18 00:18 98.3 96 19 132/75 (94) 96 98.3 04/13/18 21:24 Room Air 04/13/18 20:36 97.9 97.9 04/13/18 20:08 100.0 94 18 127/73 (91) 96 100.0 04/13/18 16:00 98.7 95 18 106/61 (76) 95 98.7 04/13/18 12:00 98.0 91 18 103/60 (74) 95 98.0 Intake and Output 04/13/18 04/14/18 19:00 07:00 Intake Total 1200 ml 1000 ml Output Total 0 ml Balance 1200 ml 1000 ml Intake Oral 1200 ml 1000 ml Stool Total 0 ml # Voids 7 5 Laboratory Tests Test 04/14/18 08:50 White Blood Count 6.6 K/UL (4.8-10.8) Red Blood Count 4.39 M/UL (4.70-6.10) L Hemoglobin 13.0 G/DL (14.2-18.0) L Hematocrit 38.4 % (42.0-52.0) L Mean Corpuscular Volume 88 FL (80-99) Mean Corpuscular Hemoglobin 29.6 PG (27.0-31.0) Mean Corpuscular Hemoglobin Concent 33.8 G/DL (32.0-36.0) Red Cell Distribution Width 14.1 % (11.6-14.8) Platelet Count 195 K/UL (150-450) Mean Platelet Volume 6.6 FL (6.5-10.1) Neutrophils (%) (Auto) 73.7 % (45.0-75.0) Lymphocytes (%) (Auto) 15.9 % (20.0-45.0) L Monocytes (%) (Auto) 8.4 % (1.0-10.0) Eosinophils (%) (Auto) 0.8 % (0.0-3.0) Basophils (%) (Auto) 1.2 % (0.0-2.0) Sodium Level 135 MMOL/L (136-145) L Potassium Level 3.2 MMOL/L (3.5-5.1) L Chloride Level 101 MMOL/L (98-107) Carbon Dioxide Level 27 MMOL/L (21-32) Anion Gap 7 mmol/L (5-15) Blood Urea Nitrogen 14 mg/dL (7-18) Creatinine 0.7 MG/DL (0.55-1.30) Estimat Glomerular Filtration Rate > 60 mL/min (>60) Glucose Level 145 MG/DL (74-106) H Calcium Level 8.3 MG/DL (8.5-10.1) L Phosphorus Level 2.6 MG/DL (2.5-4.9) Magnesium Level 1.7 MG/DL (1.8-2.4) L Total Bilirubin 1.8 MG/DL (0.2-1.0) H Direct Bilirubin 1.0 MG/DL (0.0-0.3) H Aspartate Amino Transf (AST/SGOT) 157 U/L (15-37) H Alanine Aminotransferase (ALT/SGPT) 232 U/L (12-78) H Alkaline Phosphatase 124 U/L (46-116) H Total Protein 5.7 G/DL (6.4-8.2) L Albumin 2.4 G/DL (3.4-5.0) L Globulin 3.3 g/dL Albumin/Globulin Ratio 0.7 (1.0-2.7) L Height (Feet): 5 Height (Inches): 8.00 Weight (Pounds): 165 General Appearance: WD/WN, no apparent distress, alert Cardiovascular: normal rate Respiratory/Chest: normal breath sounds, no respiratory distress Abdominal Exam: normal bowel sounds, non tender, soft Extremities: normal range of motion, non-tender Luisana Craft NP Apr 14, 2018 10:39
[2018-04-14 12:00] VITALS: BP 119/69
[2018-04-14 16:00] VITALS: BP 118/71
--- NOTE | 2018-04-14 16:14 | Internal Med Progress Note ---
Subjective Date of Service: Apr 14, 2018 Physician Name AlyssaJosue Attending Physician Michael Lutz MD Current Medications Medications (Trade) Dose Ordered Sig/Clyde Route PRN Reason Start Time Stop Time Status Last Admin Dose Admin Dextrose (Dextrose 50%) 25 ml PRN IV Hypoglycemia 04/11/18 15:15 05/10/18 16:44 Dextrose (Dextrose 50%) 50 ml PRN IV hypoglycemia 04/11/18 15:15 05/10/18 16:44 Diazepam (Valium) 10 mg Q6H PRN ORAL For Anxiety 04/11/18 17:30 04/18/18 11:29 Divalproex Sodium (Depakote) 500 mg BEDTIME ORAL 04/11/18 21:00 05/11/18 20:59 04/13/18 20:55 Folic Acid 1 mg/ Magnesium Sulfate 2000 mg/ Multivitamins 10 ml/Sodium Chloride 1,014.2 ml @ 125 mls/ hr Q24H IV 04/11/18 23:00 05/10/18 22:59 04/14/18 08:03 Heparin Sodium (Porcine) (Heparin 5000 units/ml) 5,000 units EVERY 12 HOURS SUBQ 04/11/18 21:00 05/10/18 20:59 04/14/18 10:02 Insulin Aspart (NovoLOG) BEFORE MEALS AND HS SUBQ 04/11/18 16:30 05/10/18 20:59 04/14/18 12:11 Lactulose (Cephulac) 10 gm DAILY ORAL 04/14/18 09:00 05/12/18 17:59 04/14/18 09:39 Morphine Sulfate (Morphine Sulfate) 1 mg Q4H PRN IVP For Pain 04/11/18 16:45 04/17/18 16:44 Ondansetron HCl (Zofran) 4 mg Q6H PRN IVP Nausea & Vomiting 04/11/18 16:45 05/10/18 16:44 Rifaximin (Xifaxan) 550 mg EVERY 12 HOURS ORAL 04/12/18 21:00 04/19/18 20:59 04/14/18 09:39 Simethicone (Mylicon) 80 mg Q4H PRN ORAL Abdominal cramps 04/13/18 19:45 05/13/18 19:44 Spironolactone (Aldactone) 25 mg EVERY 12 HOURS ORAL 04/12/18 21:00 05/12/18 20:59 04/13/18 20:55 Allergies: Coded Allergies: No Known Allergies (Verified , 10/22/06) ROS Limited/Unobtainable: No Constitutional: Reports: no symptoms HEENT: Reports: no symptoms Cardiovascular: Reports: no symptoms Respiratory: Reports: no symptoms Gastrointestinal/Abdominal: Reports: no symptoms Genitourinary: Reports: no symptoms Neurologic/Psychiatric: Reports: no symptoms Subjective 57 YO M admitted with alcohol intoxication. Now severe hypokalemia. Cover for Int Med-Dr Lutz. Objective Last Vital Signs Date Time Temp Pulse Resp B/P (MAP) Pulse Ox O2 Delivery O2 Flow Rate FiO2 04/14/18 12:00 97.8 72 19 119/69 (86) 99 97.8 04/14/18 09:00 Room Air Laboratory Tests Test 04/14/18 08:50 White Blood Count 6.6 K/UL (4.8-10.8) Red Blood Count 4.39 M/UL (4.70-6.10) L Hemoglobin 13.0 G/DL (14.2-18.0) L Hematocrit 38.4 % (42.0-52.0) L Mean Corpuscular Volume 88 FL (80-99) Mean Corpuscular Hemoglobin 29.6 PG (27.0-31.0) Mean Corpuscular Hemoglobin Concent 33.8 G/DL (32.0-36.0) Red Cell Distribution Width 14.1 % (11.6-14.8) Platelet Count 195 K/UL (150-450) Mean Platelet Volume 6.6 FL (6.5-10.1) Neutrophils (%) (Auto) 73.7 % (45.0-75.0) Lymphocytes (%) (Auto) 15.9 % (20.0-45.0) L Monocytes (%) (Auto) 8.4 % (1.0-10.0) Eosinophils (%) (Auto) 0.8 % (0.0-3.0) Basophils (%) (Auto) 1.2 % (0.0-2.0) Sodium Level 135 MMOL/L (136-145) L Potassium Level 3.2 MMOL/L (3.5-5.1) L Chloride Level 101 MMOL/L (98-107) Carbon Dioxide Level 27 MMOL/L (21-32) Anion Gap 7 mmol/L (5-15) Blood Urea Nitrogen 14 mg/dL (7-18) Creatinine 0.7 MG/DL (0.55-1.30) Estimat Glomerular Filtration Rate > 60 mL/min (>60) Glucose Level 145 MG/DL (74-106) H Calcium Level 8.3 MG/DL (8.5-10.1) L Phosphorus Level 2.6 MG/DL (2.5-4.9) Magnesium Level 1.7 MG/DL (1.8-2.4) L Total Bilirubin 1.8 MG/DL (0.2-1.0) H Direct Bilirubin 1.0 MG/DL (0.0-0.3) H Aspartate Amino Transf (AST/SGOT) 157 U/L (15-37) H Alanine Aminotransferase (ALT/SGPT) 232 U/L (12-78) H Alkaline Phosphatase 124 U/L (46-116) H Total Protein 5.7 G/DL (6.4-8.2) L Albumin 2.4 G/DL (3.4-5.0) L Globulin 3.3 g/dL Albumin/Globulin Ratio 0.7 (1.0-2.7) L Intake and Output 04/13/18 04/14/18 19:00 07:00 Intake Total 1200 ml 1000 ml Output Total 0 ml Balance 1200 ml 1000 ml Intake Oral 1200 ml 1000 ml Stool Total 0 ml # Voids 7 5 Objective PHYSICAL EXAMINATION: GENERAL: The patient is well-developed and well-nourished disheveled male, in no apparent distress. HEENT: Eyes, pupils equal and responsive to light and accommodation. Extraocular movements are intact. NECK: Supple without lymphadenopathy. CHEST: Lungs are clear to auscultation bilaterally without wheezes or rales. CARDIOVASCULAR: Regular rate. S1 and S2 are normal without murmurs, rubs, or gallops. ABDOMEN: Soft, nontender, and nondistended. Positive bowel sounds. No evidence of hepatosplenomegaly. Currently, no rebound or guarding noted. EXTREMITIES: Negative for clubbing, cyanosis, or edema. RECTAL: Refused. GENITAL: Refused. NEUROLOGIC: Cranial nerves II through XII are grossly intact without focal deficits. Motor strength is 5/5 bilaterally. Deep tendon reflexes are 2+ plantar. Assessment/Plan Problem List: (1) Renal failure (2) Acute alcoholic intoxication (3) Hyponatremia (4) Hypokalemia Assessment & Plan: Severe. Replace KCL oral (5) Acute encephalopathy Assessment & Plan: continue lactulose (6) Alcoholic liver disease Assessment & Plan: Due to alcoholism. See GI note. (7) Acidosis Status: stable Assessment/Plan Discharge planning Josue Shah MD Apr 14, 2018 16:14
[2018-04-14 20:00] VITALS: BP 111/56
[2018-04-14] MEDS: Depakote 500mg tab ORAL SCH (20:16)
[2018-04-15] VITALS (8 sets, daily range): BP systolic 98–106; BP diastolic 56–76
[2018-04-15] MEDS: NovoLOG Insulin Flexpen SUBQ SCH ×4 (05:37→21:00)
[2018-04-15 07:04] LABS: BASOPHILS % (AUTO) 1.4 % (0.0-2.0); EOSINOPHILS % (AUTO) 0.7 % (0.0-3.0); HEMATOCRIT 38.5 % (42.0-52.0); HEMOGLOBIN 13.2 G/DL (14.2-18.0); LYMPHOCYTES % (AUTO) 14.5 % (20.0-45.0); MEAN CORPUSCULAR VOLUME 88 FL (80-99); NEUTROPHILS % (AUTO) 74.4 % (45.0-75.0); PLATELET COUNT 258 K/UL (150-450); RED BLOOD COUNT 4.37 M/UL (4.70-6.10); RED CELL DISTRIBUTION WIDTH 14.8 % (11.6-14.8); WHITE BLOOD COUNT 9.2 K/UL (4.8-10.8)
[2018-04-15 07:29] LABS: ALANINE AMINOTRANSFERASE 190 U/L (12-78); ALBUMIN 2.6 G/DL (3.4-5.0); ALBUMIN/GLOBULIN RATIO 0.7 (1.0-2.7); ALKALINE PHOSPHATASE 142 U/L (46-116); ANION GAP 7 mmol/L (5-15); ASPARTATE AMINO TRANSFERASE 102 U/L (15-37); BILIRUBIN,TOTAL 1.6 MG/DL (0.2-1.0); BLOOD UREA NITROGEN 16 mg/dL (7-18); CALCIUM 8.9 MG/DL (8.5-10.1); CARBON DIOXIDE 29 MMOL/L (21-32); CHLORIDE 101 MMOL/L (98-107); CREATININE 0.7 MG/DL (0.55-1.30); POTASSIUM 3.4 MMOL/L (3.5-5.1); SODIUM 137 MMOL/L (136-145)
[2018-04-15] MEDS: Spironolactone 25mg tab ORAL SCH ×2 (09:35→21:00)
[2018-04-15] MEDS: Heparin 5000 units/ml inj SUBQ SCH (09:35)
[2018-04-15] MEDS: Lactulose 10gm/15ml UDC ORAL SCH (09:35)
--- NOTE | 2018-04-15 10:47 | GI Progress Note ---
Assessment/Plan Problems: (1) Acute encephalopathy ICD Codes: G93.40 - Encephalopathy, unspecified SNOMED: 71090214, 473849101 (2) Alcoholic liver disease ICD Codes: K70.9 - Alcoholic liver disease, unspecified SNOMED: 98724449 (3) Hyponatremia ICD Codes: E87.1 - Hypo-osmolality and hyponatremia SNOMED: 63116759 (4) Acute alcoholic intoxication ICD Codes: F10.929 - Alcohol use, unspecified with intoxication, unspecified SNOMED: 76110296 (5) Psychosis ICD Codes: F29 - Unspecified psychosis not due to a substance or known physiological condition SNOMED: 20364685 Status: stable, progressing Status Narrative Discussed with Dr. Rich. Assessment/Plan abdominal US reviewed >> Liver demonstrates diffusely increased echogenicity, consistent with diffuse hepatocellular disease, most likely fatty change discriminant function calculated >> NO steroids hepatitis panel negative MVI/folate ativan prn low dose lactulose + xifaxan soft cardiac diet anemia work up OB stool r/o GI bleed monitor H&H, prn transfusions bowel regime ppi fu labs, trend LFTs The patient was seen and examined at bedside and all new and available data was reviewed in the patients chart. I agree with the above findings, impression and plan. (Patient seen earlier today. Signature stamp does not reflect patient encounter time.). - Jarod Rich MD Subjective Subjective episode of emesis Objective Last 24 Hour Vital Signs Date Time Temp Pulse Resp B/P (MAP) Pulse Ox O2 Delivery O2 Flow Rate FiO2 04/15/18 09:00 Room Air 04/15/18 08:00 97.6 80 18 101/68 (79) 98 97.6 04/15/18 04:00 99.5 87 18 98/56 (70) 98 99.5 04/15/18 00:18 99.5 84 19 106/61 (76) 98 99.5 04/14/18 21:00 Room Air 04/14/18 20:00 98.1 85 18 111/56 (74) 98 98.1 04/14/18 16:00 97.4 71 20 118/71 (87) 100 97.4 04/14/18 12:00 97.8 72 19 119/69 (86) 99 97.8 Intake and Output 04/14/18 04/15/18 19:00 07:00 Intake Total 1160 ml 800 ml Output Total 200 ml 700 ml Balance 960 ml 100 ml Intake Oral 1160 ml 800 ml Output Urine Total 200 ml 700 ml # Voids 1 2 Laboratory Tests Test 04/15/18 06:31 White Blood Count 9.2 K/UL (4.8-10.8) Red Blood Count 4.37 M/UL (4.70-6.10) L Hemoglobin 13.2 G/DL (14.2-18.0) L Hematocrit 38.5 % (42.0-52.0) L Mean Corpuscular Volume 88 FL (80-99) Mean Corpuscular Hemoglobin 30.2 PG (27.0-31.0) Mean Corpuscular Hemoglobin Concent 34.3 G/DL (32.0-36.0) Red Cell Distribution Width 14.8 % (11.6-14.8) Platelet Count 258 K/UL (150-450) Mean Platelet Volume 6.8 FL (6.5-10.1) Neutrophils (%) (Auto) 74.4 % (45.0-75.0) Lymphocytes (%) (Auto) 14.5 % (20.0-45.0) L Monocytes (%) (Auto) 9.0 % (1.0-10.0) Eosinophils (%) (Auto) 0.7 % (0.0-3.0) Basophils (%) (Auto) 1.4 % (0.0-2.0) Sodium Level 137 MMOL/L (136-145) Potassium Level 3.4 MMOL/L (3.5-5.1) L Chloride Level 101 MMOL/L (98-107) Carbon Dioxide Level 29 MMOL/L (21-32) Anion Gap 7 mmol/L (5-15) Blood Urea Nitrogen 16 mg/dL (7-18) Creatinine 0.7 MG/DL (0.55-1.30) Estimat Glomerular Filtration Rate > 60 mL/min (>60) Glucose Level 182 MG/DL (74-106) H Calcium Level 8.9 MG/DL (8.5-10.1) Total Bilirubin 1.6 MG/DL (0.2-1.0) H Direct Bilirubin 1.0 MG/DL (0.0-0.3) H Aspartate Amino Transf (AST/SGOT) 102 U/L (15-37) H Alanine Aminotransferase (ALT/SGPT) 190 U/L (12-78) H Alkaline Phosphatase 142 U/L (46-116) H Total Protein 6.5 G/DL (6.4-8.2) Albumin 2.6 G/DL (3.4-5.0) L Globulin 3.9 g/dL Albumin/Globulin Ratio 0.7 (1.0-2.7) L Height (Feet): 5 Height (Inches): 8.00 Weight (Pounds): 165 General Appearance: WD/WN, no apparent distress, alert Cardiovascular: normal rate Respiratory/Chest: normal breath sounds, no respiratory distress Abdominal Exam: normal bowel sounds, non tender, soft Extremities: normal range of motion, non-tender Luisana Craft NP Apr 15, 2018 10:47
--- NOTE | 2018-04-15 12:21 | Pulmonology Progress Note ---
Assessment/Plan Problems: (1) Acute encephalopathy (2) Hyponatremia (3) Alcoholic liver disease (4) Psychosis Assessment/Plan c/o vomiting, H/h stable on spironolactone for hypokalemia, K is better today symptomatic treatment f/u by psychiatry, keep on clonipine pt/ot d/w nurse Subjective ROS Limited/Unobtainable: No Constitutional: Reports: no symptoms HEENT: Repors: no symptoms Respiratory: Reports: no symptoms Allergies: Coded Allergies: No Known Allergies (Verified , 10/22/06) Objective Last 24 Hour Vital Signs Date Time Temp Pulse Resp B/P (MAP) Pulse Ox O2 Delivery O2 Flow Rate FiO2 04/15/18 09:00 Room Air 04/15/18 08:00 97.6 80 18 101/68 (79) 98 97.6 04/15/18 04:00 99.5 87 18 98/56 (70) 98 99.5 04/15/18 00:18 99.5 84 19 106/61 (76) 98 99.5 04/14/18 21:00 Room Air 04/14/18 20:00 98.1 85 18 111/56 (74) 98 98.1 04/14/18 16:00 97.4 71 20 118/71 (87) 100 97.4 Intake and Output 04/14/18 04/15/18 19:00 07:00 Intake Total 1160 ml 800 ml Output Total 200 ml 700 ml Balance 960 ml 100 ml Intake Oral 1160 ml 800 ml Output Urine Total 200 ml 700 ml # Voids 1 2 General Appearance: WD/WN HEENT: normocephalic, atraumatic, anicteric Respiratory/Chest: chest wall non-tender, lungs clear Cardiovascular: normal peripheral pulses, normal rate Abdomen: normal bowel sounds, soft, non tender Genitourinary: normal external genitalia Extremities: no cyanosis Laboratory Tests 04/15/18 06:31: White Blood Count 9.2, Red Blood Count 4.37L, Hemoglobin 13.2L, Hematocrit 38.5L , Mean Corpuscular Volume 88, Mean Corpuscular Hemoglobin 30.2, Mean Corpuscular Hemoglobin Concent 34.3, Red Cell Distribution Width 14.8, Platelet Count 258, Mean Platelet Volume 6.8, Neutrophils (%) (Auto) 74.4, Lymphocytes (% ) (Auto) 14.5L, Monocytes (%) (Auto) 9.0, Eosinophils (%) (Auto) 0.7, Basophils (%) (Auto) 1.4, Sodium Level 137, Potassium Level 3.4L, Chloride Level 101, Carbon Dioxide Level 29, Anion Gap 7, Blood Urea Nitrogen 16, Creatinine 0.7, Estimat Glomerular Filtration Rate > 60, Glucose Level 182H, Calcium Level 8.9, Total Bilirubin 1.6H, Direct Bilirubin 1.0H, Aspartate Amino Transf (AST/SGOT) 102H, Alanine Aminotransferase (ALT/SGPT) 190H, Alkaline Phosphatase 142H, Total Protein 6.5, Albumin 2.6L, Globulin 3.9, Albumin/Globulin Ratio 0.7L Current Medications Medications (Trade) Dose Ordered Sig/Clyde Route PRN Reason Start Time Stop Time Status Last Admin Dose Admin Dextrose (Dextrose 50%) 25 ml PRN IV Hypoglycemia 04/11/18 15:15 05/10/18 16:44 Dextrose (Dextrose 50%) 50 ml PRN IV hypoglycemia 04/11/18 15:15 05/10/18 16:44 Diazepam (Valium) 10 mg Q6H PRN ORAL For Anxiety 04/11/18 17:30 04/18/18 11:29 Divalproex Sodium (Depakote) 500 mg BEDTIME ORAL 04/11/18 21:00 05/11/18 20:59 04/14/18 20:16 Heparin Sodium (Porcine) (Heparin 5000 units/ml) 5,000 units EVERY 12 HOURS SUBQ 04/11/18 21:00 05/10/18 20:59 04/14/18 20:17 Insulin Aspart (NovoLOG) BEFORE MEALS AND HS SUBQ 04/11/18 16:30 05/10/18 20:59 04/15/18 05:37 Lactulose (Cephulac) 10 gm DAILY ORAL 04/14/18 09:00 05/12/18 17:59 04/14/18 09:39 Morphine Sulfate (Morphine Sulfate) 1 mg Q4H PRN IVP For Pain 04/11/18 16:45 04/17/18 16:44 Ondansetron HCl (Zofran) 4 mg Q6H PRN IVP Nausea & Vomiting 04/11/18 16:45 05/10/18 16:44 Rifaximin (Xifaxan) 550 mg EVERY 12 HOURS ORAL 04/12/18 21:00 04/19/18 20:59 04/14/18 20:16 Simethicone (Mylicon) 80 mg Q4H PRN ORAL Abdominal cramps 04/13/18 19:45 05/13/18 19:44 Spironolactone (Aldactone) 25 mg EVERY 12 HOURS ORAL 04/12/18 21:00 05/12/18 20:59 04/14/18 20:16 Marion Schneider MD Apr 15, 2018 12:21
--- NOTE | 2018-04-15 13:39 | General Progress Note ---
Assessment/Plan Assessment/Plan alcohol intoxication Alcohol withdrawal Encephalopathy due to substance/alcohol valium prn depakote cont to monitor provided ro/st Subjective Neurologic/Psychiatric: Reports: anxiety, depressed Allergies: Coded Allergies: No Known Allergies (Verified , 10/22/06) Subjective the pt wants to go home Objective Last 24 Hour Vital Signs Date Time Temp Pulse Resp B/P (MAP) Pulse Ox O2 Delivery O2 Flow Rate FiO2 04/15/18 12:00 97.9 94 20 104/62 (76) 99 97.9 04/15/18 09:00 Room Air 04/15/18 08:00 97.6 80 18 101/68 (79) 98 97.6 04/15/18 04:00 99.5 87 18 98/56 (70) 98 99.5 04/15/18 00:18 99.5 84 19 106/61 (76) 98 99.5 04/14/18 21:00 Room Air 04/14/18 20:00 98.1 85 18 111/56 (74) 98 98.1 04/14/18 16:00 97.4 71 20 118/71 (87) 100 97.4 Intake and Output 04/14/18 04/15/18 19:00 07:00 Intake Total 1160 ml 800 ml Output Total 200 ml 700 ml Balance 960 ml 100 ml Intake Oral 1160 ml 800 ml Output Urine Total 200 ml 700 ml # Voids 1 2 Laboratory Tests 04/15/18 06:31: White Blood Count 9.2, Red Blood Count 4.37L, Hemoglobin 13.2L, Hematocrit 38.5L , Mean Corpuscular Volume 88, Mean Corpuscular Hemoglobin 30.2, Mean Corpuscular Hemoglobin Concent 34.3, Red Cell Distribution Width 14.8, Platelet Count 258, Mean Platelet Volume 6.8, Neutrophils (%) (Auto) 74.4, Lymphocytes (% ) (Auto) 14.5L, Monocytes (%) (Auto) 9.0, Eosinophils (%) (Auto) 0.7, Basophils (%) (Auto) 1.4, Sodium Level 137, Potassium Level 3.4L, Chloride Level 101, Carbon Dioxide Level 29, Anion Gap 7, Blood Urea Nitrogen 16, Creatinine 0.7, Estimat Glomerular Filtration Rate > 60, Glucose Level 182H, Calcium Level 8.9, Total Bilirubin 1.6H, Direct Bilirubin 1.0H, Aspartate Amino Transf (AST/SGOT) 102H, Alanine Aminotransferase (ALT/SGPT) 190H, Alkaline Phosphatase 142H, Total Protein 6.5, Albumin 2.6L, Globulin 3.9, Albumin/Globulin Ratio 0.7L Height (Feet): 5 Height (Inches): 8.00 Weight (Pounds): 165 Aubrey Roberts MD Apr 15, 2018 13:39
[2018-04-15] MEDS ORDERED: DEPAKOTE250 MG PO (17:12)
[2018-04-15] MEDS ORDERED: VALIUM10 MG ORAL (17:12)
[2018-04-15] MEDS ORDERED: KLONOPIN1 MG ORAL (17:12)
[2018-04-15] MEDS ORDERED: XIFAXAN550 MG ORAL (17:14)
[2018-04-15] MEDS ORDERED: HUMALOG100 UNIT/4 SUBQ (17:14)
[2018-04-15] MEDS ORDERED: SPIRONOLACTONE25 MG ORAL (17:15)
--- NOTE | 2018-04-15 17:51 | Internal Med Progress Note ---
Subjective Date of Service: Apr 15, 2018 Physician Name AlyssaJosue Attending Physician Michael Lutz MD Current Medications Medications (Trade) Dose Ordered Sig/Clyde Route PRN Reason Start Time Stop Time Status Last Admin Dose Admin Clonazepam (KlonoPIN) 1 mg BEDTIME ORAL 04/15/18 21:00 04/22/18 20:59 Dextrose (Dextrose 50%) 25 ml PRN IV Hypoglycemia 04/11/18 15:15 05/10/18 16:44 Dextrose (Dextrose 50%) 50 ml PRN IV hypoglycemia 04/11/18 15:15 05/10/18 16:44 Diazepam (Valium) 10 mg Q6H PRN ORAL For Anxiety 04/11/18 17:30 04/18/18 11:29 Divalproex Sodium (Depakote) 500 mg BEDTIME ORAL 04/11/18 21:00 05/11/18 20:59 04/14/18 20:16 Insulin Aspart (NovoLOG) BEFORE MEALS AND HS SUBQ 04/11/18 16:30 05/10/18 20:59 04/15/18 05:37 Lactulose (Cephulac) 10 gm DAILY ORAL 04/14/18 09:00 05/12/18 17:59 04/14/18 09:39 Morphine Sulfate (Morphine Sulfate) 1 mg Q4H PRN IVP For Pain 04/11/18 16:45 04/17/18 16:44 Ondansetron HCl (Zofran) 4 mg Q6H PRN ORAL Nausea & Vomiting 04/15/18 13:05 05/15/18 13:04 Rifaximin (Xifaxan) 550 mg EVERY 12 HOURS ORAL 04/12/18 21:00 04/19/18 20:59 04/14/18 20:16 Simethicone (Mylicon) 80 mg Q4H PRN ORAL Abdominal cramps 04/13/18 19:45 05/13/18 19:44 Spironolactone (Aldactone) 25 mg EVERY 12 HOURS ORAL 04/12/18 21:00 05/12/18 20:59 04/14/18 20:16 Allergies: Coded Allergies: No Known Allergies (Verified , 10/22/06) ROS Limited/Unobtainable: No Constitutional: Reports: no symptoms HEENT: Reports: no symptoms Cardiovascular: Reports: no symptoms Respiratory: Reports: no symptoms Gastrointestinal/Abdominal: Reports: no symptoms Genitourinary: Reports: no symptoms Neurologic/Psychiatric: Reports: no symptoms Subjective 57 YO M admitted with alcohol intoxication. Now severe hypokalemia. Cover for Int Med-Dr Lutz. Await transfer to Rehab center [facility] Objective Last Vital Signs Date Time Temp Pulse Resp B/P (MAP) Pulse Ox O2 Delivery O2 Flow Rate FiO2 04/15/18 16:09 97.9 90 18 102/61 (75) 94 97.9 04/15/18 09:00 Room Air Laboratory Tests Test 04/15/18 06:31 White Blood Count 9.2 K/UL (4.8-10.8) Red Blood Count 4.37 M/UL (4.70-6.10) L Hemoglobin 13.2 G/DL (14.2-18.0) L Hematocrit 38.5 % (42.0-52.0) L Mean Corpuscular Volume 88 FL (80-99) Mean Corpuscular Hemoglobin 30.2 PG (27.0-31.0) Mean Corpuscular Hemoglobin Concent 34.3 G/DL (32.0-36.0) Red Cell Distribution Width 14.8 % (11.6-14.8) Platelet Count 258 K/UL (150-450) Mean Platelet Volume 6.8 FL (6.5-10.1) Neutrophils (%) (Auto) 74.4 % (45.0-75.0) Lymphocytes (%) (Auto) 14.5 % (20.0-45.0) L Monocytes (%) (Auto) 9.0 % (1.0-10.0) Eosinophils (%) (Auto) 0.7 % (0.0-3.0) Basophils (%) (Auto) 1.4 % (0.0-2.0) Sodium Level 137 MMOL/L (136-145) Potassium Level 3.4 MMOL/L (3.5-5.1) L Chloride Level 101 MMOL/L (98-107) Carbon Dioxide Level 29 MMOL/L (21-32) Anion Gap 7 mmol/L (5-15) Blood Urea Nitrogen 16 mg/dL (7-18) Creatinine 0.7 MG/DL (0.55-1.30) Estimat Glomerular Filtration Rate > 60 mL/min (>60) Glucose Level 182 MG/DL (74-106) H Calcium Level 8.9 MG/DL (8.5-10.1) Total Bilirubin 1.6 MG/DL (0.2-1.0) H Direct Bilirubin 1.0 MG/DL (0.0-0.3) H Aspartate Amino Transf (AST/SGOT) 102 U/L (15-37) H Alanine Aminotransferase (ALT/SGPT) 190 U/L (12-78) H Alkaline Phosphatase 142 U/L (46-116) H Total Protein 6.5 G/DL (6.4-8.2) Albumin 2.6 G/DL (3.4-5.0) L Globulin 3.9 g/dL Albumin/Globulin Ratio 0.7 (1.0-2.7) L Intake and Output 04/14/18 04/15/18 19:00 07:00 Intake Total 1160 ml 800 ml Output Total 200 ml 700 ml Balance 960 ml 100 ml Intake Oral 1160 ml 800 ml Output Urine Total 200 ml 700 ml # Voids 1 2 Objective PHYSICAL EXAMINATION: GENERAL: The patient is well-developed and well-nourished disheveled male, in no apparent distress. HEENT: Eyes, pupils equal and responsive to light and accommodation. Extraocular movements are intact. NECK: Supple without lymphadenopathy. CHEST: Lungs are clear to auscultation bilaterally without wheezes or rales. CARDIOVASCULAR: Regular rate. S1 and S2 are normal without murmurs, rubs, or gallops. ABDOMEN: Soft, nontender, and nondistended. Positive bowel sounds. No evidence of hepatosplenomegaly. Currently, no rebound or guarding noted. EXTREMITIES: Negative for clubbing, cyanosis, or edema. RECTAL: Refused. GENITAL: Refused. NEUROLOGIC: Cranial nerves II through XII are grossly intact without focal deficits. Motor strength is 5/5 bilaterally. Deep tendon reflexes are 2+ plantar. Assessment/Plan Problem List: (1) Renal failure (2) Acute alcoholic intoxication (3) Hyponatremia (4) Hypokalemia Assessment & Plan: Severe. Replace KCL oral (5) Acute encephalopathy Assessment & Plan: continue lactulose (6) Alcoholic liver disease Assessment & Plan: Due to alcoholism. See GI note. (7) Acidosis Status: stable Assessment/Plan Discharge planning Josue Shah MD Apr 15, 2018 17:51
[2018-04-15] MEDS: Depakote 500mg tab ORAL SCH (21:00)
--- NOTE | 2018-04-17 11:03 | Discharge Summary ---
Discharge Summary Discharge Summary _ DATE OF ADMISSION: 04/10/2018 DATE OF DISCHARGE:04/15/2018 REASON FOR ADMISSION: 57 years old male with history of hypertension, anxiety disorder alcohol abuse , was brought by paramedics due to alcohol intoxication. Patient was found on the street. Upon evaluation noted tachycardia , stable vital signs otherwise. Laboratory workup revealed no leukocytosis , stable hemoglobin and hematocrit. Potassium 2.2, sodium 130. BUN 32 creatinine 1.9; total bilirubin 5.3 ,direct bilirubin 3.5. AST 207, ALT 323 . Troponin negative. ECG with sinus rhythm, no acute ischemic changes. Ammonia level -[address] CT of the head revealed no evidence of acute intracranial hemorrhage, mass effect or cortical edema. Mild atrophy and nonspecific periventricular changes noted suggestive of chronic ischemic microvascular changes. Urine toxicology screen was negative. Serum alcohol level was less than 3. Patient admitted with diagnosis of acute encephalopathy, alcohol intoxication, acute hypokalemia, acute hyponatremia ,alcoholic liver disease ,renal failure. CONSULTANTS: pulmonary Dr. Schneider GI specialist psychiatrist [facility]SE: Patient admitted and started on IV banana bag. Valium was on standby as needed for withdrawal symptoms. Psychiatrist and GI specialists closely followed. Hepatitis panel was negative. LFT were trending down. Abdominal ultrasound revealed gallbladder sludge, but was negative for gallstones or dilated ducts. Liver demonstrated diffuse increased echogenicity consistent with a diffuse hepatocellular disease, most likely fatty changes. Patient started on low dose of lactulose and Xifaxan. . Ammonia down to normal. Mental status was closely monitored , and as ammonia stabilized and patient clinically improved , mental status returned to baseline. Electrolytes were corrected as needed. Renal parameters and electrolytes were closely monitored, and nephrotoxins were avoided. Acute renal failure resolved. Patient started on soft cardiac diet and was able to tolerate it. Hemoglobin and hematocrit were closely monitored with goal to keep hemoglobin above 7. Hemoglobin and hematocrit remained at the baseline ; prior to discharge hemoglobin 13.2, hematocrit 28.5. Coagulation profile stable. Bowel regimen instituted. GI prophylaxis provided. GI specialist calculated discrimination function and concluded that patient does not need steroid at this time. Patient was working with physical and occupational therapists. Supportive care provided. Patient was counseled on cessation of alcohol. Patient was stable for discharge to half-way facility for continuation of care FINAL DIAGNOSES: Acute encephalopathy secondary to ETOH intoxication Acute alcohol intoxication Acute hypokalemia Alcoholic liver disease Acute renal failure/acute kidney injury resolved Elevated liver function test Hyponatremia Alcohol withdrawal Psychosis DISCHARGE MEDICATIONS: See Medication Reconciliation list. DISCHARGE INSTRUCTIONS: Patient was discharged to the half-way facility. Follow up with medical doctor at the facility. I have been assigned to dictate discharge summary for this account. I was not involved in the patient's management. Maria Teresa Marina NP Apr 17, 2018 11:03
== END 2018-04-15 21:30 | disposition short-term general hospital (02) | DRG 775 ==
LOC: EDBD 12:24 → EMR 12:45 → 2E 15:27 → EDBD 15:27 → EDBEDREQ 15:48 → 3E 04-11 15:11
DX: F10.239 Alcohol dependence with withdrawal, unspecified (principal); F10.229 Alcohol dependence with intoxication, unspecified; G93.40 Encephalopathy, unspecified; N17.9 Acute kidney failure, unspecified; E87.2 Acidosis; K70.9 Alcoholic liver disease, unspecified; E87.1 Hypo-osmolality and hyponatremia; F32.9 Major depressive disorder, single episode, unspecified; E87.6 Hypokalemia; F41.9 Anxiety disorder, unspecified; F29 Unspecified psychosis not due to a substance or known physiological condition
CPT/HCPCS: 36415; 36600; 70450; 76700; 80048; 80053; 80307; 80329; 82009; 82140; 82248; 82803; 82962; 83735; 83930; 84100; 85007; 85025; 85610; 85730; 86705; 86709; 86803; 87081; 87340; 93005; 96361; 96365; 96366; 96367; 96375; 99285; J1815; J2405; J8499

== ENCOUNTER 2018-12-29 12:07 | Inpatient (IN) | payer MEDICAID ==
[~2018-12-29] VITALS: Ht 165.1 cm; Wt 86.0 kg
[~2018-12-29 12:07] MED LIST changes: +CARAFATE1 G1 ORAL; +DEPAKOTE250 MG PO; +HUMALOG100 UNIT/4 SUBQ; +KLONOPIN1 MG ORAL; +SEROQUEL25 MG ORAL; +SPIRONOLACTONE25 MG ORAL; +UNOBMED; +VALIUM10 MG ORAL; +XIFAXAN550 MG ORAL
[2018-12-29] MEDS ORDERED: SEROQUEL50 MG ORAL (12:10)
[2018-12-29] MEDS ORDERED: Lidocaine 2% Visc 15ml soln ORAL ONE (12:30)
--- NOTE | 2018-12-29 12:45 | NUR ---
Cordell goodman in [facility] - 12/29/18 at 1509 by NHUNG JACK Bui Note:
--- NOTE | 2018-12-29 12:45 | NUR ---
ED Nurse Note: Patient brought in by ambulance from street with neighbor. Patient c/o abdominal pain and vomiting with blood today. Per neighbor, patient has home and family and has been living on the [address] and drinking alcohol all day. Per patient, 'I drink alcohol all day, I don't sleep' Patient appears unkempt. Patient awake, alert, oriented x 3 and able to follow some command. Patient unable to walk today, but per neighbor, patient usually able to wa without any assistve device. Bed in lowest position.
[2018-12-29 13:06] LABS: HEMOGLOBIN 9.3 G/DL (14.2-18.0); MEAN CORPUSCULAR VOLUME 102 FL (80-99); PLATELET COUNT 161 K/UL (150-450); RED BLOOD COUNT 2.84 M/UL (4.70-6.10); RED CELL DISTRIBUTION WIDTH 16.4 % (11.6-14.8); WHITE BLOOD COUNT 12.3 K/UL (4.8-10.8)
[2018-12-29 13:07] LABS: ANION GAP 10 mmol/L (5-15); BLOOD UREA NITROGEN 11 mg/dL (7-18); CALCIUM 7.5 MG/DL (8.5-10.1); CARBON DIOXIDE 28 MMOL/L (21-32); CHLORIDE 101 MMOL/L (98-107); CREATININE 0.6 MG/DL (0.55-1.30); POTASSIUM 3.3 MMOL/L (3.5-5.1); SODIUM 139 MMOL/L (136-145)
--- NOTE | 2018-12-29 13:07 | Emergency Room Report ---
History of Present Illness General Chief Complaint: Abdominal Pain Source: EMS (Almaz Rowe) Present Illness HPI 58 YO Male presents to The ED. C/O 10 out of 10 in severity abdominal pain with nausea vomiting times one day. Patient reports some blood in his vomitus he denies melena or blood in the stool. Patient reports constipation he states his last bowel movement was approximately 3 weeks ago. Patient denies significant past medical history other than depression and anxiety and states that he was doing well on regimen of Klonopin, Xanax and Seroquel. Patient states that due to insurance purposes he has not had any of his medications for several months. Patient reports that he is homeless. Patient also reports heavy EtOH use and describes daily intake of "a lot of alcohol" and states that he has intended to drink himself to . Denies smoking or drug use. Patient denies liver or heart disease. Patient denies history of withdrawal seizures. He denies fevers, chills, recent travel or ill contacts with similar symptoms. He denies history of GI bleeds. Reports recent hospitalization several months ago for unknown reason. Patient denies any relieving factors at this time. (Almaz Rowe) Allergies: Coded Allergies: No Known Allergies (Verified , 10/22/06) Patient History Past Medical History: see triage record, psych hx - depression, anxiety, and SI --"drink himself to " Past Surgical History: unable to obtain Pertinent Family History: unable to obtain Social History: Reports: alcohol use Reviewed Nursing Documentation: PMH: Agreed; PSxH: Agreed (Almaz Rowe) Nursing Documentation-PMH History Of Psychiatric Problem: Yes - ANXIETY AND DEPRESSION (Almaz Rowe) Review of Systems All Other Systems: negative except mentioned in HPI (Almaz Rowe) Physical Exam Vital Signs Date Time Temp Pulse Resp B/P (MAP) Pulse Ox O2 Delivery O2 Flow Rate FiO2 12/29/18 12:07 98.4 87 18 138/89 (105) 98 Room Air Sp02 EP Interpretation: reviewed, normal General Appearance: alert, GCS 15, non-toxic, mild distress, Chronically Ill Head: normocephalic, atraumatic Eyes: bilateral eye normal inspection, bilateral eye PERRL ENT: hearing grossly normal, normal voice Neck: full range of motion, no bony tend Respiratory: chest non-tender, lungs clear, normal breath sounds, speaking full sentences Cardiovascular #1: regular rate, rhythm, no edema Gastrointestinal: normal bowel sounds, no guarding, no rebound, distended - mild distention, tenderness - epigastric, RUQ and LUQ ttp. Rectal: deferred Genitourinary: normal inspection, no CVA tenderness Musculoskeletal: back normal, gait/station normal, normal range of motion, non- tender Neurologic: alert, oriented x3, responsive, motor strength/tone normal, sensory intact, speech normal, grossly normal Psychiatric: judgement/insight normal, other - Pt. references hx of depression and wanting to drink himself to . Skin: normal color, no rash, warm/dry, well hydrated (Almaz Rowe) Medical Decision Making PA Attestation Dr. Mead is my supervising Physician whom patient management has been discussed with. (Almaz oRwe) Diagnostic Impression: Primary Impression: Acute alcoholic gastritis Qualified Codes: K29.20 - Alcoholic gastritis without bleeding Additional Impressions: Alcoholic liver disease Fecal impaction in rectum ER Course 58 YO Male presents to The ED. C/O 10 out of 10 in severity abdominal pain with nausea vomiting times one day. Patient reports some blood in his vomitus he denies melena or blood in the stool. Patient reports constipation he states his last bowel movement was approximately 3 weeks ago. Patient denies significant past medical history other than depression and anxiety and states that he was doing well on regimen of Klonopin, Xanax and Seroquel. Patient states that due to insurance purposes he has not had any of his medications for several months. Patient reports that he is homeless. Patient also reports heavy EtOH use and describes daily intake of "a lot of alcohol" and states that he has intended to drink himself to . Denies smoking or drug use. Patient denies liver or heart disease. Patient denies history of withdrawal seizures. He denies fevers, chills, recent travel or ill contacts with similar symptoms. He denies history of GI bleeds. Reports recent hospitalization several months ago for unknown reason. Patient denies any relieving factors at this time. Ddx considered but are not limited to ETOH, Trauma, Syncope, dementia, OD, acute GI bleed, PUD, or ETOH W/D just to name a few. Vital signs: are WNL, pt. is afebrile-- no evidence of impending acute ETOH w/d - will continue to monitor. H&PE are most consistent with probable Upper GI Bleed in chronic alcoholic at high risk and homeless. -- pt. is alert, no obvious signs of trauma, retching- some coffee ground emesis-mild, no bright red blood. ORDERS: -CBC: Wbc 12.3, hgb:9.3 -CMP: elevated AST and Alk Phos. mild hypokalemia 3.3, normal renal fn-pt. candidate for contrast studies. -Lipase: WNL -Tylenol/ Salicylates: WNL - ETOH: 169 -UDS:pending -PT/PTT: Elevated. -Type and Screen: A Negative ED INTERVENTIONS: -1 Liter NS -Pepcid IV 20mg -Zofran 4mg IV -5mg Reglan IV -Morphine 2 mg IV -Rocephin 1g IV -Ativan 0.5mg CT Abdomen and Pelvis with IV Contrast: "Chronic liver disease/cirrhosis with fatty infiltration, enlargement of the liver and stigmata of portal hypertension including ascites and splenomegaly, recanalized umbilical vein. Some probable gallstones and fecal impaction" --Per official radiology report- Please see report for specific details. DISPOSITION: at this time pt. will be admitted to Dr. Martinez for Alcoholic Gastritis. Dr. Martinez agreed to admit the pt. and to continue pt. care management. Labs Test 12/29/18 12:30 12/29/18 13:50 White Blood Count 12.3 K/UL (4.8-10.8) Red Blood Count 2.84 M/UL (4.70-6.10) Hemoglobin 9.3 G/DL (14.2-18.0) Hematocrit 29.0 % (42.0-52.0) Mean Corpuscular Volume 102 FL (80-99) Mean Corpuscular Hemoglobin 32.6 PG (27.0-31.0) Mean Corpuscular Hemoglobin Concent 32.0 G/DL (32.0-36.0) Red Cell Distribution Width 16.4 % (11.6-14.8) Platelet Count 161 K/UL (150-450) Mean Platelet Volume 7.1 FL (6.5-10.1) Neutrophils (%) (Auto) % (45.0-75.0) Lymphocytes (%) (Auto) % (20.0-45.0) Monocytes (%) (Auto) % (1.0-10.0) Eosinophils (%) (Auto) % (0.0-3.0) Basophils (%) (Auto) % (0.0-2.0) Differential Total Cells Counted 100 Neutrophils % (Manual) 87 % (45-75) Lymphocytes % (Manual) 8 % (20-45) Monocytes % (Manual) 5 % (1-10) Eosinophils % (Manual) 0 % (0-3) Basophils % (Manual) 0 % (0-2) Band Neutrophils 0 % (0-8) Platelet Estimate Adequate Platelet Morphology Normal Anisocytosis 1+ Macrocytosis 1+ Sodium Level 139 MMOL/L (136-145) Potassium Level 3.3 MMOL/L (3.5-5.1) Chloride Level 101 MMOL/L (98-107) Carbon Dioxide Level 28 MMOL/L (21-32) Anion Gap 10 mmol/L (5-15) Blood Urea Nitrogen 11 mg/dL (7-18) Creatinine 0.6 MG/DL (0.55-1.30) Estimat Glomerular Filtration Rate > 60 mL/min (>60) Glucose Level 163 MG/DL (74-106) Calcium Level 7.5 MG/DL (8.5-10.1) Total Bilirubin 9.9 MG/DL (0.2-1.0) Direct Bilirubin 8.4 MG/DL (0.0-0.3) Aspartate Amino Transf (AST/SGOT) 170 U/L (15-37) Alanine Aminotransferase (ALT/SGPT) 44 U/L (12-78) Alkaline Phosphatase 562 U/L (46-116) Total Protein 6.4 G/DL (6.4-8.2) Albumin 2.1 G/DL (3.4-5.0) Globulin 4.3 g/dL Albumin/Globulin Ratio 0.5 (1.0-2.7) Lipase 204 U/L (73-393) Salicylates Level < 2.0 ug/mL (2.8-20) Acetaminophen Level < 2 MCG/ML (10-30) Serum Alcohol 169 mg/dL Prothrombin Time 13.4 SEC (9.30-11.50) Prothromb Time International Ratio 1.3 (0.9-1.1) Activated Partial Thromboplast Time 27 SEC (23-33) (Almaz Rowe) ER Course Please see above note. The patient was reviewed by me and examined. He was discussed in detail and agree with the treatment plan. Admit medical floor Dr. Martinez. (Devon Mead MD) EKG Diagnostic Results EP Interpretation: Dr. Greer Rate: normal - 98 bpm Rhythm: NSR ST Segments: no acute changes ASA given to the pt in ED: No PA Scribe Text This Interpretation was scribed by MARIBEL Rowe. (Almaz Rowe) CT/MRI/US Diagnostic Results CT/MRI/US Diagnostic Results : Imaging Test Ordered: CT Abdomen and Pelvis with contrast Impression "Chronic liver disease/cirrhosis with fatty infiltration, enlargement of the liver and stigmata of portal hypertension including ascites and splenomegaly, recanalized umbilical vein. Some probable gallstones and fecal impaction" --Per official radiology report- Please see report for specific details. (Almaz Rowe) Last Vital Signs Date Time Temp Pulse Resp B/P (MAP) Pulse Ox O2 Delivery O2 Flow Rate FiO2 12/29/18 12:07 98.4 87 18 138/89 (105) 98 Room Air (Almaz Rowe) Status: improved (Devon Mead MD) Disposition: ADMITTED INPATIENT Condition: Serious Almaz Rowe Dec 29, 2018 13:07 Devon Mead MD Dec 30, 2018 00:47
[2018-12-29] MEDS ORDERED: Metoclopramide 10mg/2ml Inj ONE (13:09)
[2018-12-29] MEDS ORDERED: Metoclopramide 10mg/2ml Inj IVP ONE (13:15)
[2018-12-29 13:18] LABS: ALANINE AMINOTRANSFERASE 44 U/L (12-78); ALBUMIN 2.1 G/DL (3.4-5.0); ALBUMIN/GLOBULIN RATIO 0.5 (1.0-2.7); ALKALINE PHOSPHATASE 562 U/L (46-116); ASPARTATE AMINO TRANSFERASE 170 U/L (15-37); BILIRUBIN,TOTAL 9.9 MG/DL (0.2-1.0)
[2018-12-29 13:23] LABS: BILIRUBIN,DIRECT 8.4 MG/DL (0.0-0.3)
--- NOTE | 2018-12-29 13:35 | NUR ---
ED Nurse Note: Bailey, technical proposal writer contacted for additional lab test. technical proposal writer acknowledged.
[2018-12-29] MEDS ORDERED: Isovue-300 100ml vial INJ PRN (13:45)
[2018-12-29 14:23] LABS: INR 1.3 (0.9-1.1)
--- NOTE | 2018-12-29 14:30 | NUR ---
ED Nurse Note: Patient resting in bed. Bed in lowest position. Urinal at bedside.
[2018-12-29 14:41] VITALS: BP 137/71
[2018-12-29] MEDS ORDERED: cefTRIAXone 1 GM in NS 55 ML IVPB ONE (14:45)
[2018-12-29] MEDS ORDERED: Morphine Sulfate 2mg/ml Inj(IV/IM USE ONLY) IVP ONE (15:00)
[2018-12-29] MEDS ORDERED: LORazepam Inj 2mg/ml 1ml IV ONE (15:30)
[2018-12-29 15:48] LABS: APPEARANCE,URINE SLIGHTLY CLOUDY; BILIRUBIN, URINE 3+ (NEGATIVE); GLUCOSE, URINE (UA) NEGATIVE (NEGATIVE); KETONES,URINE NEGATIVE (NEGATIVE); PH,URINE 7 (4.5-8.0); UROBILINOGEN,URINE 12 MG/DL (0.0-1.0)
--- NOTE | 2018-12-29 16:00 | NUR ---
ED Nurse Note: Cleaned the patient. Removed soiled clothing with dried feces. Patient able to turn himself in bed. Addendum: 12/29/18 at 1702 by NHUNG [facility] socks.
[2018-12-29 16:10] LABS: COLOR,URINE ORANGE
[2018-12-29 16:11] LABS: LEUKOCYTE ESTERASE ,URINE NEGATIVE (NEGATIVE); NITRITE,URINE NEGATIVE (NEGATIVE); PROTEIN,URINE 1+ (NEGATIVE)
--- NOTE | 2018-12-29 16:18 | General Progress Note ---
Assessment/Plan Problem List: (1) Elevated LFTs ICD Codes: R94.5 - Abnormal results of liver function studies SNOMED: 773801337, 821215269 (2) Esophagitis ICD Codes: K20.9 - Esophagitis, unspecified SNOMED: 94005367 (3) Acute alcoholic gastritis ICD Codes: K29.20 - Alcoholic gastritis without bleeding SNOMED: 9596075 Qualifiers: Qualified Codes: K29.20 - Alcoholic gastritis without bleeding (4) Alcoholic liver disease ICD Codes: K70.9 - Alcoholic liver disease, unspecified SNOMED: 86097722 Assessment/Plan: ppi npo fu labs fu CT and us may need ERCP Subjective ROS Limited/Unobtainable: Yes Allergies: Coded Allergies: No Known Allergies (Verified , 10/22/06) Objective Last 24 Hour Vital Signs Date Time Temp Pulse Resp B/P (MAP) Pulse Ox O2 Delivery O2 Flow Rate FiO2 12/29/18 14:42 84 16 Room Air 12/29/18 14:41 97.6 89 16 137/71 95 Room Air 12/29/18 12:07 98.4 87 18 138/89 (105) 98 Room Air Laboratory Tests 12/29/18 12:30: White Blood Count 12.3H, Red Blood Count 2.84L, Hemoglobin 9.3L, Hematocrit 29.0L, Mean Corpuscular Volume 102H, Mean Corpuscular Hemoglobin 32.6H, Mean Corpuscular Hemoglobin Concent 32.0, Red Cell Distribution Width 16.4H, Platelet Count 161, Mean Platelet Volume 7.1, Neutrophils (%) (Auto) , Lymphocytes (%) (Auto) , Monocytes (%) (Auto) , Eosinophils (%) (Auto) , Basophils (%) (Auto) , Differential Total Cells Counted 100, Neutrophils % ( Manual) 87H, Lymphocytes % (Manual) 8L, Monocytes % (Manual) 5, Eosinophils % ( Manual) 0, Basophils % (Manual) 0, Band Neutrophils 0, Platelet Estimate Adequate, Platelet Morphology Normal, Anisocytosis 1+, Macrocytosis 1+, Sodium Level 139, Potassium Level 3.3L, Chloride Level 101, Carbon Dioxide Level 28, Anion Gap 10, Blood Urea Nitrogen 11, Creatinine 0.6, Estimat Glomerular Filtration Rate > 60, Glucose Level 163H, Calcium Level 7.5L, Total Bilirubin 9.9H, Direct Bilirubin 8.4H, Aspartate Amino Transf (AST/SGOT) 170H, Alanine Aminotransferase (ALT/SGPT) 44, Alkaline Phosphatase 562H, Total Protein 6.4, Albumin 2.1L, Globulin 4.3, Albumin/Globulin Ratio 0.5L, Lipase 204, Salicylates Level < 2.0L, Acetaminophen Level < 2L, Serum Alcohol 169 12/29/18 13:50: Prothrombin Time 13.4H, Prothromb Time International Ratio 1.3H, Activated Partial Thromboplast Time 27 12/29/18 15:26: Urine Color [place], Urine Appearance Slightly cloudy, Urine pH 7, Urine Specific [place] 1.010, Urine Protein 1+H, Urine Glucose (UA) Negative, Urine Ketones Negative, Urine Blood Negative, Urine Nitrite Negative, Urine Bilirubin 3+H, Urine Ictotest Positive, Urine Urobilinogen 12H, Urine Leukocyte Esterase Negative, Urine RBC 0-2H, Urine WBC 0-2, Urine Squamous Epithelial Cells Occasional, Urine Bacteria Few, Urine Mucus ManyH, Urine Opiates Screen Negative , Urine Barbiturates Screen Negative, Phencyclidine (PCP) Screen Negative, Urine Amphetamines Screen Negative, Urine Benzodiazepines Screen Negative, Urine Cocaine Screen Negative, Urine Marijuana (THC) Screen Negative Height (Feet): 5 Height (Inches): 5.00 Weight (Pounds): 160 General Appearance: no apparent distress EENT: normal ENT inspection Neck: supple Cardiovascular: normal rate Respiratory/Chest: decreased breath sounds Abdomen: normal bowel sounds, non tender, soft Extremities: non-tender Jarod Rich MD Dec 29, 2018 16:18
[2018-12-29] MEDS ORDERED: Miralax 17gm pkt ORAL PRN (16:30)
[2018-12-29] MEDS ORDERED: Zolpidem 5mg tab ORAL PRN (16:30)
[2018-12-29] MEDS ORDERED: Morphine Sulfate 2mg/ml Inj(IV/IM USE ONLY) IVP PRN (16:30)
[2018-12-29] MEDS ORDERED: chlordiazePOXIDE 25mg Cap ORAL PRN (16:30)
[2018-12-29] MEDS ORDERED: LORazepam Inj 2mg/ml 1ml IV PRN (16:30)
--- NOTE | 2018-12-29 16:45 | NUR ---
ED Nurse Note: Patient is being transferred to MED SURG by BRANNON Marmolejo. Belongings given to BRANNON Redd and patient denies SI and HI at this time and Tramaine SOUTH notifed and made aware. Addendum: 12/29/18 at 1704 by NHUNG IVs on right upper arm and left AC remained intact without swelling or redness.
--- NOTE | 2018-12-29 16:45 | NUR ---
NURSE NOTES: received report from ER/BRANNON Pritchett. patient admitted ER d/t ABD pain, vomit with blood. GI lab done at ER. will f/u for admission
--- NOTE | 2018-12-29 16:50 | NUR ---
NURSE NOTES: patient admitted room 417-1. alert, oriented. forgetful at times. verbally responsive. no respiratory distress on room air. restless. shaking. given ativan PRN IVP. IV on JOSSIE 22 [address]AC [address] bed lowest position. call light within reach. alarm on. checked and counted belonging with ER nurse. will f/u with admission order.
[2018-12-29] MEDS ORDERED: Folic Acid 1 MG, Magnesium Sulfate 2,000 MG, Multivitamin - 12 Injection 10 ML in NS w/... IV SCH (18:00)
[2018-12-29] MEDS ORDERED: Thiamine 100mg in D5W 55ml IVPB SCH (18:00)
--- NOTE | 2018-12-29 19:34 | NUR ---
HAND-OFF: Report given to BRANNON De Paz.
--- NOTE | 2018-12-29 20:00 | NUR ---
NURSE NOTES: Patient in bed, awake, alert x 3. Able to make needs known. Respiration is even and unlabored. Kept clean and comfortable. Provided safe environment. NOted with IV site on left arm. SKin is intact, warm and dry to touch. No complaint of pain. Call light is at bedside. Will continue plan of care.
[2018-12-29] MEDS ORDERED: Heparin 5000 units/ml inj SUBQ SCH (21:00)
[2018-12-29 23:25] VITALS: BP 107/70
--- NOTE | 2018-12-29 23:30 | NUR ---
NURSE NOTES: Patient noted with temperature 102.2 and pr 130. Blood pressure 107/70. Contacted Dr. Schneider, new orders noted and carried out.
--- NOTE | 2018-12-30 00:30 | NUR ---
NURSE NOTES: All belongings with patient. Patient still has temperature and pulse rate elevated. Given report to BRANNON Huerta
--- NOTE | 2018-12-30 00:31 | NUR ---
NURSE NOTES: Received pt from BRANNON De Paz. Pt is awake and resting in bed. boilermaker welder placed on pt. V/S 100/65, 127 bpm, 99.9F, 95%, 18 respirations. IV site intact. Will continue with plan of care.
[2018-12-30 01:30] VITALS: BP 100/65
[2018-12-30] MEDS ORDERED: LORazepam Inj 2mg/ml 1ml IV PRN ×4 (01:30→11:45)
[2018-12-30] MEDS ORDERED: chlordiazePOXIDE 25mg Cap ORAL PRN ×2 (01:45→04:30)
[2018-12-30] MEDS: chlordiazePOXIDE 25mg Cap ORAL PRN ×4 (02:15→21:02)
[2018-12-30] MEDS: Zolpidem 5mg tab ORAL PRN (03:41)
[2018-12-30 04:00] VITALS: BP 106/67
--- NOTE | 2018-12-30 06:57 | NUR ---
CASE MANAGEMENT:REVIEW 58 YR OLD MALE BIBA FROM STREET CC: ABDOMINAL PAIN W/NAUSEA AND VOMITING SI: ACUTE ALCOHOL GASTRITIS 98.5 87 18 138/89 98% ON RA WBC+12.3 H/H-9.3/29.0 K-3.3 IS: 1L NS BOLUS PROTONIX PO IV REGLAN IV ZOFRAN IV ROCEPHIN IV MORPHINE CT ABD/PELVIS : TO TELEMETRY INTERQUAL CRITERIA MET
[2018-12-30 06:59] LABS: BASOPHILS % (AUTO) 1.4 % (0.0-2.0); EOSINOPHILS % (AUTO) 1.4 % (0.0-3.0); HEMATOCRIT 26.9 % (42.0-52.0); HEMOGLOBIN 8.4 G/DL (14.2-18.0); LYMPHOCYTES % (AUTO) 9.2 % (20.0-45.0); MEAN CORPUSCULAR VOLUME 105 FL (80-99); MONOCYTES % (AUTO) 10.3 % (1.0-10.0); NEUTROPHILS % (AUTO) 77.7 % (45.0-75.0); PLATELET COUNT 117 K/UL (150-450); RED BLOOD COUNT 2.55 M/UL (4.70-6.10); RED CELL DISTRIBUTION WIDTH 17.1 % (11.6-14.8); WHITE BLOOD COUNT 10.1 K/UL (4.8-10.8)
[2018-12-30 07:02] LABS: ALANINE AMINOTRANSFERASE 37 U/L (12-78); ALBUMIN 1.8 G/DL (3.4-5.0); ALBUMIN/GLOBULIN RATIO 0.5 (1.0-2.7); ALKALINE PHOSPHATASE 508 U/L (46-116); ANION GAP 7 mmol/L (5-15); ASPARTATE AMINO TRANSFERASE 164 U/L (15-37); BLOOD UREA NITROGEN 9 mg/dL (7-18); CALCIUM 6.9 MG/DL (8.5-10.1); CARBON DIOXIDE 29 MMOL/L (21-32); CHLORIDE 105 MMOL/L (98-107); CREATININE 0.7 MG/DL (0.55-1.30); POTASSIUM 3.2 MMOL/L (3.5-5.1); SODIUM 141 MMOL/L (136-145)
[2018-12-30 07:03] LABS: BILIRUBIN,DIRECT 8.7 MG/DL (0.0-0.3)
--- NOTE | 2018-12-30 07:48 | NUR ---
HAND-OFF: Report given to BRANNON Boyle. Endorsed plan of care.
[2018-12-30] MEDS: Morphine Sulfate 2mg/ml Inj(IV/IM USE ONLY) IVP PRN (07:58)
[2018-12-30 08:00] VITALS: BP 130/73
[2018-12-30] MEDS: Heparin 5000 units/ml inj SUBQ SCH ×2 (08:14→21:00)
--- NOTE | 2018-12-30 08:25 | NUR ---
Social Service Note SW received a call from [facility] [phone] patient's sister. ELENA familiar with patient from previous admissions. ELENA has not had contact from [place] and has only spoken with Reyna [phone] and Les [phone]. [place] states she has conservatorship of patient. ELENA requested conservatorship documentation to be faxed or emailed to ELENA. Sister states she will email SW documents. Sister states patient cannot return to family's home and requires SNF placement. Sister didn't want to discuss patient ETOH abuse. SW will discuss with CM.
[2018-12-30] MEDS: Zoysn 3.37gm in NS 100ML IVPB SCH ×2 (10:18→17:14)
--- NOTE | 2018-12-30 10:26 | GI Progress Note ---
Assessment/Plan Problems: (1) Acute alcoholic gastritis ICD Codes: K29.20 - Alcoholic gastritis without bleeding SNOMED: 6791651 Qualifiers: Qualified Codes: K29.20 - Alcoholic gastritis without bleeding (2) Elevated LFTs ICD Codes: R94.5 - Abnormal results of liver function studies SNOMED: 472622659, 644041718 (3) Alcoholic liver disease ICD Codes: K70.9 - Alcoholic liver disease, unspecified SNOMED: 14259894 (4) Esophagitis ICD Codes: K20.9 - Esophagitis, unspecified SNOMED: 15049703 (5) Acute encephalopathy ICD Codes: G93.40 - Encephalopathy, unspecified SNOMED: 49300243, 026014275 (6) Psychosis ICD Codes: F29 - Unspecified psychosis not due to a substance or known physiological condition SNOMED: 83690953 (7) Acute alcoholic intoxication ICD Codes: F10.929 - Alcohol use, unspecified with intoxication, unspecified SNOMED: 15885478 Status: unchanged Status Narrative Discussed with Dr. Rich. Assessment/Plan abdominal US taken, pending final read stat MRCP ordered, possible ERCP maintain NPO + IVFs until after imaging study then ok for cardiac diet paracentesis if mod to large amounts of ascites noted anemia work up OB stool r/o GI bleed, possible endoscopy if positive to evaluate for EV monitor H&H, prn transfusions bowel regimen ppi ativan prn fu labs needs psych consult The patient was seen and examined at bedside and all new and available data was reviewed in the patients chart. I agree with the above findings, impression and plan. (Patient seen earlier today. Signature stamp does not reflect patient encounter time.). - Jarod Rich MD Subjective Gastrointestinal/Abdominal: Reports: abdomen distended, abdominal pain Subjective anxious thirsty Objective Last 24 Hour Vital Signs Date Time Temp Pulse Resp B/P (MAP) Pulse Ox O2 Delivery O2 Flow Rate FiO2 12/30/18 08:28 97.8 12/30/18 08:00 97.8 106 20 130/73 (92) 97 12/30/18 04:00 111 12/30/18 04:00 98.8 111 20 106/67 (80) 96 12/30/18 01:30 99.9 127 20 100/65 (77) 95 6/7/19 01:30 124 12/29/18 23:25 102.2 122 20 107/70 (82) 95 12/29/18 21:00 Room Air 12/29/18 16:57 97.4 80 16 104/67 95 Room Air 12/29/18 16:56 Room Air 12/29/18 15:58 97.4 12/29/18 14:42 84 16 Room Air 12/29/18 14:41 97.6 89 16 137/71 95 Room Air 12/29/18 12:07 98.4 87 18 138/89 (105) 98 Room Air Intake and Output 12/29/18 12/30/18 19:00 07:00 Intake Total 1055 ml Balance 1055 ml Intake IV Total 1055 ml # Voids 1 # Bowel Movements 2 Laboratory Tests Test 12/29/18 12:30 12/29/18 13:50 12/29/18 15:26 12/30/18 06:00 White Blood Count 12.3 K/UL (4.8-10.8) H 10.1 K/UL (4.8-10.8) Red Blood Count 2.84 M/UL (4.70-6.10) L 2.55 M/UL (4.70-6.10) L Hemoglobin 9.3 G/DL (14.2-18.0) L 8.4 G/DL (14.2-18.0) L Hematocrit 29.0 % (42.0-52.0) L 26.9 % (42.0-52.0) L Mean Corpuscular Volume 102 FL (80-99) H 105 FL (80-99) H Mean Corpuscular Hemoglobin 32.6 PG (27.0-31.0) H 33.0 PG (27.0-31.0) H Mean Corpuscular Hemoglobin Concent 32.0 G/DL (32.0-36.0) 31.4 G/DL (32.0-36.0) L Red Cell Distribution Width 16.4 % (11.6-14.8) H 17.1 % (11.6-14.8) H Platelet Count 161 K/UL (150-450) 117 K/UL (150-450) L Mean Platelet Volume 7.1 FL (6.5-10.1) 7.5 FL (6.5-10.1) Neutrophils (%) (Auto) % (45.0-75.0) 77.7 % (45.0-75.0) H Lymphocytes (%) (Auto) % (20.0-45.0) 9.2 % (20.0-45.0) L Monocytes (%) (Auto) % (1.0-10.0) 10.3 % (1.0-10.0) H Eosinophils (%) (Auto) % (0.0-3.0) 1.4 % (0.0-3.0) Basophils (%) (Auto) % (0.0-2.0) 1.4 % (0.0-2.0) Differential Total Cells Counted 100 Neutrophils % (Manual) 87 % (45-75) H Lymphocytes % (Manual) 8 % (20-45) L Monocytes % (Manual) 5 % (1-10) Eosinophils % (Manual) 0 % (0-3) Basophils % (Manual) 0 % (0-2) Band Neutrophils 0 % (0-8) Platelet Estimate Adequate Platelet Morphology Normal Anisocytosis 1+ Macrocytosis 1+ Sodium Level 139 MMOL/L (136-145) 141 MMOL/L (136-145) Potassium Level 3.3 MMOL/L (3.5-5.1) L 3.2 MMOL/L (3.5-5.1) L Chloride Level 101 MMOL/L (98-107) 105 MMOL/L (98-107) Carbon Dioxide Level 28 MMOL/L (21-32) 29 MMOL/L (21-32) Anion Gap 10 mmol/L (5-15) 7 mmol/L (5-15) Blood Urea Nitrogen 11 mg/dL (7-18) 9 mg/dL (7-18) Creatinine 0.6 MG/DL (0.55-1.30) 0.7 MG/DL (0.55-1.30) Estimat Glomerular Filtration Rate > 60 mL/min (>60) > 60 mL/min (>60) Glucose Level 163 MG/DL (74-106) H 107 MG/DL (74-106) H Calcium Level 7.5 MG/DL (8.5-10.1) L 6.9 MG/DL (8.5-10.1) L Total Bilirubin 9.9 MG/DL (0.2-1.0) H 10.0 MG/DL (0.2-1.0) H Direct Bilirubin 8.4 MG/DL (0.0-0.3) H 8.7 MG/DL (0.0-0.3) H Aspartate Amino Transf (AST/SGOT) 170 U/L (15-37) H 164 U/L (15-37) H Alanine Aminotransferase (ALT/SGPT) 44 U/L (12-78) 37 U/L (12-78) Alkaline Phosphatase 562 U/L (46-116) H 508 U/L (46-116) H Total Protein 6.4 G/DL (6.4-8.2) 5.4 G/DL (6.4-8.2) L Albumin 2.1 G/DL (3.4-5.0) L 1.8 G/DL (3.4-5.0) L Globulin 4.3 g/dL 3.6 g/dL Albumin/Globulin Ratio 0.5 (1.0-2.7) L 0.5 (1.0-2.7) L Lipase 204 U/L (73-393) Salicylates Level < 2.0 ug/mL (2.8-20) L Acetaminophen Level < 2 MCG/ML (10-30) L Serum Alcohol 169 mg/dL Prothrombin Time 13.4 SEC (9.30-11.50) H Prothromb Time International Ratio 1.3 (0.9-1.1) H Activated Partial Thromboplast Time 27 SEC (23-33) Urine Color [place] Urine Appearance Slightly cloudy Urine pH 7 (4.5-8.0) Urine Specific [place] 1.010 (1.005-1.035) Urine Protein 1+ (NEGATIVE) H Urine Glucose (UA) Negative (NEGATIVE) Urine Ketones Negative (NEGATIVE) Urine Blood Negative (NEGATIVE) Urine Nitrite Negative (NEGATIVE) Urine Bilirubin 3+ (NEGATIVE) H Urine Ictotest Positive (NEGATIVE) Urine Urobilinogen 12 MG/DL (0.0-1.0) H Urine Leukocyte Esterase Negative (NEGATIVE) Urine RBC 0-2 /HPF (0 - 0) H Urine WBC 0-2 /HPF (0 - 0) Urine Squamous Epithelial Cells Occasional /LPF Urine Bacteria Few /HPF (NONE) Urine Mucus Many /LPF (NONE/OCC) H Urine Opiates Screen Negative (NEGATIVE) Urine Barbiturates Screen Negative (NEGATIVE) Phencyclidine (PCP) Screen Negative (NEGATIVE) Urine Amphetamines Screen Negative (NEGATIVE) Urine Benzodiazepines Screen Negative (NEGATIVE) Urine Cocaine Screen Negative (NEGATIVE) Urine Marijuana (THC) Screen Negative (NEGATIVE) Height (Feet): 5 Height (Inches): 5.00 Weight (Pounds): 160 General Appearance: WD/WN, no apparent distress, alert Cardiovascular: normal rate Respiratory/Chest: normal breath sounds, no respiratory distress Abdominal Exam: normal bowel sounds, non tender, soft, distended, ascites Extremities: normal range of motion, non-tender Luisana Craft NP Dec 30, 2018 10:26
[2018-12-30] MEDS ORDERED: LORazepam Inj 2mg/ml 1ml IV SCH (11:42)
[2018-12-30 12:16] VITALS: BP 123/80
--- NOTE | 2018-12-30 12:58 | Consultation ---
History of Present Illness General Date patient seen: Dec 30, 2018 Chief Complaint: Abdominal Pain Reason for Consultation: Leukcoytosis Present Illness HPI Mr. Leone is a 58 yo male with PMHx of EtOH abuse, Depression and anxiety, SI who presented to the ED on 12/29/18 with N/V and abdominal pain. He reported 3 week of constiaption. He says that he has been of his Psych meds for months and want to drink himself to . He denoes fever and bleeding. In the ED he had a single high temp of 102 but has otherwise been aferbile. His WBCs were 12 but ar now down to 10. His AlkP is elevated at 500 and the AST is slightly elevated. He now reports feeling well. Denies SI and any abdominal pain. ID was consulted for abdominal infection. PMHx/PSHx EtOH abuse Depression and anxiety SI SocHx Heavy EtOH FamHx Not Contributory Allergies: Coded Allergies: No Known Allergies (Verified , 10/22/06) Medication History Scheduled Carbamide Peroxide (Debrox), 10 DROP LEFT EAR TWICE A DAY Clonazepam* (Klonopin*), 1 MG ORAL QHS Divalproex Sodium* (Depakote*), 550 MG PO QHS, (Reported) Insulin Lispro (Humalog), 0 SUBQ AC+HS Lidocaine HCl 2% Viscous (Lidocaine HCl 2% Viscous), 15 ML PO TID Quetiapine Fumarate (Seroquel), 50 MG ORAL DAILY, (Reported) Quetiapine Fumarate* (Seroquel*), 25 MG ORAL Q8HR Rifaximin* (Xifaxan*), 550 MG ORAL Q12HR, (Reported) Spironolactone* (Aldactone*), 25 MG ORAL Q12HR Sucralfate* (Carafate*), 1 GM ORAL FOUR TIMES A DAY Scheduled PRN Diazepam* (Valium*), 10 MG ORAL Q6HR PRN for ANXIETY Miscellaneous Medications Unable to Obtain Medications (Unable To Obtain Meds), (Reported) Patient History Healthcare decision maker Resuscitation status Full Code Advanced Directive on File Review of Systems ROS Narrative 12 point ROS negative except as noted in the HPI Physical Exam Last 24 Hour Vital Signs Date Time Temp Pulse Resp B/P (MAP) Pulse Ox O2 Delivery O2 Flow Rate FiO2 12/30/18 12:16 98.6 106 20 123/80 (94) 96 12/30/18 11:22 Room Air 12/30/18 08:28 97.8 12/30/18 08:00 97.8 106 20 130/73 (92) 97 12/30/18 04:00 111 12/30/18 04:00 98.8 111 20 106/67 (80) 96 12/30/18 01:30 99.9 127 20 100/65 (77) 95 12/30/18 01:30 124 12/29/18 23:25 102.2 122 20 107/70 (82) 95 12/29/18 21:00 Room Air 12/29/18 16:57 97.4 80 16 104/67 95 Room Air 12/29/18 16:56 Room Air 12/29/18 15:58 97.4 12/29/18 14:42 84 16 Room Air 12/29/18 14:41 97.6 89 16 137/71 95 Room Air Intake and Output 12/29/18 12/30/18 19:00 07:00 Intake Total 1055 ml Balance 1055 ml Intake IV Total 1055 ml # Voids 1 # Bowel Movements 2 Laboratory Tests Test 12/29/18 13:50 12/29/18 15:26 12/30/18 06:00 Prothrombin Time 13.4 SEC (9.30-11.50) H Prothromb Time International Ratio 1.3 (0.9-1.1) H Activated Partial Thromboplast Time 27 SEC (23-33) Urine Color [place] Urine Appearance Slightly cloudy Urine pH 7 (4.5-8.0) Urine Specific [place] 1.010 (1.005-1.035) Urine Protein 1+ (NEGATIVE) H Urine Glucose (UA) Negative (NEGATIVE) Urine Ketones Negative (NEGATIVE) Urine Blood Negative (NEGATIVE) Urine Nitrite Negative (NEGATIVE) Urine Bilirubin 3+ (NEGATIVE) H Urine Ictotest Positive (NEGATIVE) Urine Urobilinogen 12 MG/DL (0.0-1.0) H Urine Leukocyte Esterase Negative (NEGATIVE) Urine RBC 0-2 /HPF (0 - 0) H Urine WBC 0-2 /HPF (0 - 0) Urine Squamous Epithelial Cells Occasional /LPF Urine Bacteria Few /HPF (NONE) Urine Mucus Many /LPF (NONE/OCC) H Urine Opiates Screen Negative (NEGATIVE) Urine Barbiturates Screen Negative (NEGATIVE) Phencyclidine (PCP) Screen Negative (NEGATIVE) Urine Amphetamines Screen Negative (NEGATIVE) Urine Benzodiazepines Screen Negative (NEGATIVE) Urine Cocaine Screen Negative (NEGATIVE) Urine Marijuana (THC) Screen Negative (NEGATIVE) White Blood Count 10.1 K/UL (4.8-10.8) Red Blood Count 2.55 M/UL (4.70-6.10) L Hemoglobin 8.4 G/DL (14.2-18.0) L Hematocrit 26.9 % (42.0-52.0) L Mean Corpuscular Volume 105 FL (80-99) H Mean Corpuscular Hemoglobin 33.0 PG (27.0-31.0) H Mean Corpuscular Hemoglobin Concent 31.4 G/DL (32.0-36.0) L Red Cell Distribution Width 17.1 % (11.6-14.8) H Platelet Count 117 K/UL (150-450) L Mean Platelet Volume 7.5 FL (6.5-10.1) Neutrophils (%) (Auto) 77.7 % (45.0-75.0) H Lymphocytes (%) (Auto) 9.2 % (20.0-45.0) L Monocytes (%) (Auto) 10.3 % (1.0-10.0) H Eosinophils (%) (Auto) 1.4 % (0.0-3.0) Basophils (%) (Auto) 1.4 % (0.0-2.0) Sodium Level 141 MMOL/L (136-145) Potassium Level 3.2 MMOL/L (3.5-5.1) L Chloride Level 105 MMOL/L (98-107) Carbon Dioxide Level 29 MMOL/L (21-32) Anion Gap 7 mmol/L (5-15) Blood Urea Nitrogen 9 mg/dL (7-18) Creatinine 0.7 MG/DL (0.55-1.30) Estimat Glomerular Filtration Rate > 60 mL/min (>60) Glucose Level 107 MG/DL (74-106) H Calcium Level 6.9 MG/DL (8.5-10.1) L Total Bilirubin 10.0 MG/DL (0.2-1.0) H Direct Bilirubin 8.7 MG/DL (0.0-0.3) H Aspartate Amino Transf (AST/SGOT) 164 U/L (15-37) H Alanine Aminotransferase (ALT/SGPT) 37 U/L (12-78) Alkaline Phosphatase 508 U/L (46-116) H Total Protein 5.4 G/DL (6.4-8.2) L Albumin 1.8 G/DL (3.4-5.0) L Globulin 3.6 g/dL Albumin/Globulin Ratio 0.5 (1.0-2.7) L Height (Feet): 5 Height (Inches): 5.00 Weight (Pounds): 160 Medications Current Medications Medications (Trade) Dose Ordered Sig/Clyde Route PRN Reason Start Time Stop Time Status Last Admin Dose Admin Acetaminophen (Tylenol) 650 mg Q4H PRN ORAL fever 12/30/18 04:30 01/28/19 16:29 Chlordiazepoxide (Librium) 25 mg Q6H PRN ORAL Agitation 12/30/18 02:00 01/06/19 01:59 12/30/18 08:15 Dextrose (Dextrose 50%) 25 ml Q30M PRN IV Hypoglycemia 12/30/18 01:00 01/28/19 16:29 Dextrose (Dextrose 50%) 50 ml Q30M PRN IV Hypoglycemia 12/30/18 01:00 01/28/19 16:29 Folic Acid 1 mg/ Magnesium Sulfate 2000 mg/ Multivitamins 10 ml/Potassium Chloride/Sodium Chloride 1,014.2 ml @ 124.876 mls/hr Q24H IV 12/30/18 18:00 01/28/19 17:59 Heparin Sodium (Porcine) (Heparin 5000 units/ml) 5,000 units EVERY 12 HOURS SUBQ 12/30/18 09:00 01/28/19 20:59 Iopamidol (Isovue-300 100ml) 100 ml NOW PRN INJ Radiology Procedure 12/30/18 13:45 Lorazepam (Ativan 2mg/ml 1ml) 2 mg ONCE IV 12/30/18 11:42 12/30/18 13:00 12/30/18 11:55 Lorazepam (Ativan 2mg/ml 1ml) 2 mg Q1H PRN IV SEIZURES 12/30/18 11:42 01/06/19 11:41 Lorazepam (Ativan 2mg/ml 1ml) 2 mg Q6H PRN IV Agitation 12/30/18 11:45 01/06/19 11:44 Morphine Sulfate (Morphine Sulfate) 1 mg Q4H PRN IVP For Pain 12/30/18 04:30 01/05/19 16:29 12/30/18 07:58 Ondansetron HCl (Zofran) 4 mg Q6H PRN IVP Nausea & Vomiting 12/30/18 04:30 01/28/19 16:29 Pantoprazole (Protonix) 40 mg BID ORAL 12/30/18 09:00 01/28/19 17:59 12/30/18 08:14 Piperacillin Sod/ Tazobactam Sod 3.375 gm/Sodium Chloride 110 ml @ 27.5 mls/hr Q8H IVPB 12/30/18 10:00 01/06/19 09:59 12/30/18 10:18 Polyethylene Glycol (Miralax) 17 gm HSPRN PRN ORAL Constipation 12/30/18 16:30 01/28/19 16:29 Thiamine HCl 100 mg/Dextrose 56 ml @ 112 mls/hr Q24H IVPB 12/30/18 18:00 01/28/19 17:59 Zolpidem Tartrate (Ambien) 5 mg HSPRN PRN ORAL Insomnia 12/30/18 02:00 01/05/19 01:59 12/30/18 03:41 Objective Narrative Gen: NAD HEENT: NCAT, MMM, EOMI, PERRL, No Oral lesion, no scleral icterus but blood shot NECK: full range of motion, supple, no meningismus, No LAD, No JVD LUNGS: CTAB, No W/C, No Accessory muscle use CARDS: RRR, S1, S2, No M/R/G, ABD: Soft, Epigastric pain, ND, No R/G, + BS, No HSM, No Masses : Deferred Ext: C/C/E, Pulses 2+ B/L (DP, Rad): NEURO: A/O x 4, Strength and Sensation Grossly intact PSYCH: Depressed SKIN: Warm/dry, No rashes Assessment/Plan Assessment/Plan: 58 yo male with PMHx of EtOH abuse, Depression and anxiety, SI who presented to the ED on 12/29/18 with N/V and abdominal pain. Leukocytosis and single high temp Likely due to gastritis from EtOH need to r/o cholecystitis given inc AlkP US and MRCP pend EtOH abuse Depression and anxiety SI PLAN: - Continue Zosyn Pending MRCP and US - Monitor CBC and Temps - Monitor clincially Thank you for this consult. We will continue to follow the patient during this hospitalization. Devon Kingsley MD Dec 30, 2018 12:58
--- NOTE | 2018-12-30 12:58 | NUR ---
Social Work This SW met with patient due to a history of chronic substance abuse (alcohol) and homelessness. Patient is currently confused at this time (in detoxification). Patient appears that he will require SNF placement upon discharge due to inability to care for himself. Patient has been at [facility] SNF in the past. Patient has possible psychiatric concerns as well (Dr. Roberts, Psychiatry to follow as needed). SW to follow.
[2018-12-30] MEDS ORDERED: Isovue-300 100ml vial INJ PRN (13:45)
--- NOTE | 2018-12-30 14:47 | Consultation ---
History of Present Illness General Date patient seen: Dec 30, 2018 Chief Complaint: Abdominal Pain Reason for Consultation: Leukcoytosis Present Illness HPI 58 year old Male presents with hx of ETOH abuse, presented to ER with CC of to abdominal pain with nausea vomiting times one day. Patient reports some blood in his vomitus he denies melena or blood in the stool. Patient states that due to insurance purposes he has not had any of his medications for several months. Therefore he decided instead of taking his meds, to drink even more alcohol. Patient reports that he is homeless. He is admitted for further work up. Allergies: Coded Allergies: No Known Allergies (Verified , 10/22/06) Medication History Scheduled Carbamide Peroxide (Debrox), 10 DROP LEFT EAR TWICE A DAY Clonazepam* (Klonopin*), 1 MG ORAL QHS Divalproex Sodium* (Depakote*), 550 MG PO QHS, (Reported) Insulin Lispro (Humalog), 0 SUBQ AC+HS Lidocaine HCl 2% Viscous (Lidocaine HCl 2% Viscous), 15 ML PO TID Quetiapine Fumarate (Seroquel), 50 MG ORAL DAILY, (Reported) Quetiapine Fumarate* (Seroquel*), 25 MG ORAL Q8HR Rifaximin* (Xifaxan*), 550 MG ORAL Q12HR, (Reported) Spironolactone* (Aldactone*), 25 MG ORAL Q12HR Sucralfate* (Carafate*), 1 GM ORAL FOUR TIMES A DAY Scheduled PRN Diazepam* (Valium*), 10 MG ORAL Q6HR PRN for ANXIETY Miscellaneous Medications Unable to Obtain Medications (Unable To Obtain Meds), (Reported) Patient History Healthcare decision maker Resuscitation status Full Code Advanced Directive on File Past Medical/Surgical History Past Medical/Surgical History: (1) Alcoholic liver disease (2) Psychosis Review of Systems All Other Systems: negative except mentioned in HPI Physical Exam General Appearance: thin Lines, tubes and drains: peripheral HEENT: normocephalic, atraumatic Neck: normal alignment, supple Cardiovascular/Chest: normal peripheral pulses, normal rate Abdomen: normal bowel sounds Extremities: normal range of motion, normal inspection Last 24 Hour Vital Signs Date Time Temp Pulse Resp B/P (MAP) Pulse Ox O2 Delivery O2 Flow Rate FiO2 12/30/18 12:16 98.6 106 20 123/80 (94) 96 12/30/18 12:00 103 12/30/18 11:22 Room Air 12/30/18 08:28 97.8 12/30/18 08:00 114 12/30/18 08:00 97.8 106 20 130/73 (92) 97 12/30/18 04:00 111 12/30/18 04:00 98.8 111 20 106/67 (80) 96 12/30/18 01:30 99.9 127 20 100/65 (77) 95 12/30/18 01:30 124 12/29/18 23:25 102.2 122 20 107/70 (82) 95 12/29/18 21:00 Room Air 12/29/18 16:57 97.4 80 16 104/67 95 Room Air 12/29/18 16:56 Room Air 12/29/18 15:58 97.4 12/29/18 14:42 84 16 Room Air Intake and Output 12/29/18 12/30/18 19:00 07:00 Intake Total 1055 ml Balance 1055 ml Intake IV Total 1055 ml # Voids 1 # Bowel Movements 2 Laboratory Tests Test 12/29/18 15:26 12/30/18 06:00 Urine Color [place] Urine Appearance Slightly cloudy Urine pH 7 (4.5-8.0) Urine Specific [place] 1.010 (1.005-1.035) Urine Protein 1+ (NEGATIVE) H Urine Glucose (UA) Negative (NEGATIVE) Urine Ketones Negative (NEGATIVE) Urine Blood Negative (NEGATIVE) Urine Nitrite Negative (NEGATIVE) Urine Bilirubin 3+ (NEGATIVE) H Urine Ictotest Positive (NEGATIVE) Urine Urobilinogen 12 MG/DL (0.0-1.0) H Urine Leukocyte Esterase Negative (NEGATIVE) Urine RBC 0-2 /HPF (0 - 0) H Urine WBC 0-2 /HPF (0 - 0) Urine Squamous Epithelial Cells Occasional /LPF Urine Bacteria Few /HPF (NONE) Urine Mucus Many /LPF (NONE/OCC) H Urine Opiates Screen Negative (NEGATIVE) Urine Barbiturates Screen Negative (NEGATIVE) Phencyclidine (PCP) Screen Negative (NEGATIVE) Urine Amphetamines Screen Negative (NEGATIVE) Urine Benzodiazepines Screen Negative (NEGATIVE) Urine Cocaine Screen Negative (NEGATIVE) Urine Marijuana (THC) Screen Negative (NEGATIVE) White Blood Count 10.1 K/UL (4.8-10.8) Red Blood Count 2.55 M/UL (4.70-6.10) L Hemoglobin 8.4 G/DL (14.2-18.0) L Hematocrit 26.9 % (42.0-52.0) L Mean Corpuscular Volume 105 FL (80-99) H Mean Corpuscular Hemoglobin 33.0 PG (27.0-31.0) H Mean Corpuscular Hemoglobin Concent 31.4 G/DL (32.0-36.0) L Red Cell Distribution Width 17.1 % (11.6-14.8) H Platelet Count 117 K/UL (150-450) L Mean Platelet Volume 7.5 FL (6.5-10.1) Neutrophils (%) (Auto) 77.7 % (45.0-75.0) H Lymphocytes (%) (Auto) 9.2 % (20.0-45.0) L Monocytes (%) (Auto) 10.3 % (1.0-10.0) H Eosinophils (%) (Auto) 1.4 % (0.0-3.0) Basophils (%) (Auto) 1.4 % (0.0-2.0) Sodium Level 141 MMOL/L (136-145) Potassium Level 3.2 MMOL/L (3.5-5.1) L Chloride Level 105 MMOL/L (98-107) Carbon Dioxide Level 29 MMOL/L (21-32) Anion Gap 7 mmol/L (5-15) Blood Urea Nitrogen 9 mg/dL (7-18) Creatinine 0.7 MG/DL (0.55-1.30) Estimat Glomerular Filtration Rate > 60 mL/min (>60) Glucose Level 107 MG/DL (74-106) H Calcium Level 6.9 MG/DL (8.5-10.1) L Total Bilirubin 10.0 MG/DL (0.2-1.0) H Direct Bilirubin 8.7 MG/DL (0.0-0.3) H Aspartate Amino Transf (AST/SGOT) 164 U/L (15-37) H Alanine Aminotransferase (ALT/SGPT) 37 U/L (12-78) Alkaline Phosphatase 508 U/L (46-116) H Total Protein 5.4 G/DL (6.4-8.2) L Albumin 1.8 G/DL (3.4-5.0) L Globulin 3.6 g/dL Albumin/Globulin Ratio 0.5 (1.0-2.7) L Height (Feet): 5 Height (Inches): 5.00 Weight (Pounds): 160 Medications Current Medications Medications (Trade) Dose Ordered Sig/Clyde Route PRN Reason Start Time Stop Time Status Last Admin Dose Admin Acetaminophen (Tylenol) 650 mg Q4H PRN ORAL fever 12/30/18 04:30 01/28/19 16:29 Chlordiazepoxide (Librium) 25 mg Q6H PRN ORAL Agitation 12/30/18 02:00 01/06/19 01:59 12/30/18 08:15 Dextrose (Dextrose 50%) 25 ml Q30M PRN IV Hypoglycemia 12/30/18 01:00 01/28/19 16:29 Dextrose (Dextrose 50%) 50 ml Q30M PRN IV Hypoglycemia 12/30/18 01:00 01/28/19 16:29 Folic Acid 1 mg/ Magnesium Sulfate 2000 mg/ Multivitamins 10 ml/Potassium Chloride/Sodium Chloride 1,014.2 ml @ 124.876 mls/hr Q24H IV 12/30/18 18:00 01/28/19 17:59 Heparin Sodium (Porcine) (Heparin 5000 units/ml) 5,000 units EVERY 12 HOURS SUBQ 12/30/18 09:00 01/28/19 20:59 Iopamidol (Isovue-300 100ml) 100 ml NOW PRN INJ Radiology Procedure 12/30/18 13:45 Lorazepam (Ativan 2mg/ml 1ml) 2 mg Q1H PRN IV SEIZURES 12/30/18 11:42 01/06/19 11:41 Lorazepam (Ativan 2mg/ml 1ml) 2 mg Q6H PRN IV Agitation 12/30/18 11:45 01/06/19 11:44 Morphine Sulfate (Morphine Sulfate) 1 mg Q4H PRN IVP For Pain 12/30/18 04:30 01/05/19 16:29 12/30/18 07:58 Ondansetron HCl (Zofran) 4 mg Q6H PRN IVP Nausea & Vomiting 12/30/18 04:30 01/28/19 16:29 Pantoprazole (Protonix) 40 mg BID ORAL 12/30/18 09:00 01/28/19 17:59 12/30/18 08:14 Piperacillin Sod/ Tazobactam Sod 3.375 gm/Sodium Chloride 110 ml @ 27.5 mls/hr Q8H IVPB 12/30/18 10:00 01/06/19 09:59 12/30/18 10:18 Polyethylene Glycol (Miralax) 17 gm HSPRN PRN ORAL Constipation 12/30/18 16:30 01/28/19 16:29 Thiamine HCl 100 mg/Dextrose 56 ml @ 112 mls/hr Q24H IVPB 12/30/18 18:00 01/28/19 17:59 Zolpidem Tartrate (Ambien) 5 mg HSPRN PRN ORAL Insomnia 12/30/18 02:00 01/05/19 01:59 12/30/18 03:41 Assessment/Plan Problem List: (1) Acute alcoholic intoxication ICD Codes: F10.929 - Alcohol use, unspecified with intoxication, unspecified SNOMED: 84615082 (2) Acute encephalopathy ICD Codes: G93.40 - Encephalopathy, unspecified SNOMED: 57519630, 633955797 (3) Acute upper GI bleed ICD Codes: K92.2 - Gastrointestinal hemorrhage, unspecified SNOMED: 62372686 (4) Coagulopathy ICD Codes: D68.9 - Coagulation defect, unspecified SNOMED: 66706380 (5) Psychosis ICD Codes: F29 - Unspecified psychosis not due to a substance or known physiological condition SNOMED: 80348315 Assessment/Plan: NPO GI evaluation IV fluids prbc prn might need further studies b/o increased bilirubin Marion Schneider MD Dec 30, 2018 14:47
--- NOTE | 2018-12-30 14:59 | NUR ---
*-* INSURANCE *-* ALL CLINICALS AND REVIEWS HAVE BEEN FAXED TO: [employer] NCM: DOMINGUEZ Iglesias P- [phone] F- [phone].....REVIEW/CLINICAL
--- NOTE | 2018-12-30 15:20 | NUR ---
HOMELESS COORDINATOR attempted to assess patient for homelessness. Patient is not alert and oriented. Patient wouldn't open eyes when name was called. Patient appears to be in a deep sleep. Patient continues to require medical intervention. Will continue to monitor and assist as needed.
[2018-12-30 16:00] VITALS: BP 101/63
[2018-12-30] MEDS ORDERED: Miralax 17gm pkt ORAL PRN (16:30)
--- NOTE | 2018-12-30 17:46 | Diagnostic Imaging Report ---
Indication: Abdominal pain Technique: Continuous helical transaxial imaging of the abdomen and pelvis was obtained from the lung bases to the pubic symphysis during intravenous contrast administration. Coronal 2-D reformats were also obtained. Study obtained in a Siemens sensation [address] Automatic Exposure Control was utilized. Total Dose length Product (DLP): 742.[address] Dose Index Volume (CTDIvol): 13.88 mGy Comparison: None Findings: There is impaction and retention of feces within the rectum which is distended and measures about 8 cm. There is thickening of the wall the rectum. There is ascites present which is mild to moderate. This is likely due to liver disease with nodularity of the liver surface and low attenuation. Spleen is enlarged. There is a recanalization of the umbilical vein noted. These are signs of portal hypertension. Small gallstones are likely present. There is some thickening of the wall the gallbladder. Streaky densities at lung bases likely atelectasis. Adrenal glands are unremarkable. Small hypodensities are noted within both kidneys. There is no hydronephrosis. Bowel gas pattern is nonobstructive. IMPRESSION: Chronic liver disease/cirrhosis with fatty infiltration, enlargement of the liver and stigmata of portal hypertension including ascites and splenomegaly, recanalized umbilical vein. Basilar atelectasis Probable gallstones Tiny bilateral renal hypodensities too small to characterize. Fecal impaction The CT scanner at [facility] is accredited by the [employer] and the scans are performed using dose optimization techniques as appropriate to a performed exam including Automatic Exposure control.
--- NOTE | 2018-12-30 17:46 | Consultation ---
History of Present Illness General Date patient seen: Dec 30, 2018 Chief Complaint: AMS Referring physician: Dr Sam Martinez Reason for Consultation: Alcohol Withdrawal Present Illness HPI Barry Figueroa is a homeless 58 year old with a PMH of ETOH abuse, presented to ER with CC of to abdominal pain with nausea vomiting times one day. He reports some blood in his vomitus he denies melena or blood in the stool. Patient states that due to insurance purposes he has not had any of his medications for several months. Therefore he decided instead of taking his meds , to drink even more alcohol. Allergies: Coded Allergies: No Known Allergies (Verified , 10/22/06) Medication History Scheduled Carbamide Peroxide (Debrox), 10 DROP LEFT EAR TWICE A DAY Clonazepam* (Klonopin*), 1 MG ORAL QHS Divalproex Sodium* (Depakote*), 550 MG PO QHS, (Reported) Insulin Lispro (Humalog), 0 SUBQ AC+HS Lidocaine HCl 2% Viscous (Lidocaine HCl 2% Viscous), 15 ML PO TID Quetiapine Fumarate (Seroquel), 50 MG ORAL DAILY, (Reported) Quetiapine Fumarate* (Seroquel*), 25 MG ORAL Q8HR Rifaximin* (Xifaxan*), 550 MG ORAL Q12HR, (Reported) Spironolactone* (Aldactone*), 25 MG ORAL Q12HR Sucralfate* (Carafate*), 1 GM ORAL FOUR TIMES A DAY Scheduled PRN Diazepam* (Valium*), 10 MG ORAL Q6HR PRN for ANXIETY Miscellaneous Medications Unable to Obtain Medications (Unable To Obtain Meds), (Reported) Patient History Limited by: medical condition History Provided By: Patient, Medical Record Healthcare decision maker Resuscitation status Full Code Advanced Directive on File Past Medical/Surgical History Past Medical/Surgical History: (1) Alcoholic liver disease (2) Acute alcoholic gastritis (3) Psychosis (4) Acute alcoholic intoxication (5) Acute encephalopathy Physical Exam General Appearance: alert, confused, mild distress, thin Lines, tubes and drains: peripheral HEENT: normocephalic, mucous membranes moist, PERRL, EOMI, pharynx normal, supple, no JVD, other - Visible intranasal lesion in right nare. Neck: non-tender, normal alignment, supple, normal inspection Respiratory/Chest: no respiratory distress, no accessory muscle use Extremities: normal range of motion, non-tender, normal inspection, no edema Skin Exam: warm/dry Neurologic: line lead II-XII grossly normal, no motor/sensory deficits, abnormal gait , responsive, disoriented, other Musculoskeletal: normal muscle bulk, no effusion Physical Exam Narrative Patient LARKIN x 4 but not ambulating. Non focal exam at this time. Weakness throughout all extremities. He is drowsy, lethargic but responsive. Last 24 Hour Vital Signs Date Time Temp Pulse Resp B/P (MAP) Pulse Ox O2 Delivery O2 Flow Rate FiO2 12/30/18 16:00 103 12/30/18 16:00 99.5 98 20 101/63 (76) 95 12/30/18 12:16 98.6 106 20 123/80 (94) 96 12/30/18 12:00 103 12/30/18 11:22 Room Air 12/30/18 08:28 97.8 12/30/18 08:00 114 12/30/18 08:00 97.8 106 20 130/73 (92) 97 12/30/18 04:00 111 12/30/18 04:00 98.8 111 20 106/67 (80) 96 12/30/18 01:30 99.9 127 20 100/65 (77) 95 12/30/18 01:30 124 12/29/18 23:25 102.2 122 20 107/70 (82) 95 12/29/18 21:00 Room Air Intake and Output 12/29/18 12/30/18 19:00 07:00 Intake Total 1055 ml Balance 1055 ml Intake IV Total 1055 ml # Voids 1 # Bowel Movements 2 Laboratory Tests Test 12/30/18 06:00 White Blood Count 10.1 K/UL (4.8-10.8) Red Blood Count 2.55 M/UL (4.70-6.10) L Hemoglobin 8.4 G/DL (14.2-18.0) L Hematocrit 26.9 % (42.0-52.0) L Mean Corpuscular Volume 105 FL (80-99) H Mean Corpuscular Hemoglobin 33.0 PG (27.0-31.0) H Mean Corpuscular Hemoglobin Concent 31.4 G/DL (32.0-36.0) L Red Cell Distribution Width 17.1 % (11.6-14.8) H Platelet Count 117 K/UL (150-450) L Mean Platelet Volume 7.5 FL (6.5-10.1) Neutrophils (%) (Auto) 77.7 % (45.0-75.0) H Lymphocytes (%) (Auto) 9.2 % (20.0-45.0) L Monocytes (%) (Auto) 10.3 % (1.0-10.0) H Eosinophils (%) (Auto) 1.4 % (0.0-3.0) Basophils (%) (Auto) 1.4 % (0.0-2.0) Sodium Level 141 MMOL/L (136-145) Potassium Level 3.2 MMOL/L (3.5-5.1) L Chloride Level 105 MMOL/L (98-107) Carbon Dioxide Level 29 MMOL/L (21-32) Anion Gap 7 mmol/L (5-15) Blood Urea Nitrogen 9 mg/dL (7-18) Creatinine 0.7 MG/DL (0.55-1.30) Estimat Glomerular Filtration Rate > 60 mL/min (>60) Glucose Level 107 MG/DL (74-106) H Calcium Level 6.9 MG/DL (8.5-10.1) L Total Bilirubin 10.0 MG/DL (0.2-1.0) H Direct Bilirubin 8.7 MG/DL (0.0-0.3) H Aspartate Amino Transf (AST/SGOT) 164 U/L (15-37) H Alanine Aminotransferase (ALT/SGPT) 37 U/L (12-78) Alkaline Phosphatase 508 U/L (46-116) H Total Protein 5.4 G/DL (6.4-8.2) L Albumin 1.8 G/DL (3.4-5.0) L Globulin 3.6 g/dL Albumin/Globulin Ratio 0.5 (1.0-2.7) L Height (Feet): 5 Height (Inches): 5.00 Weight (Pounds): 160 Medications Current Medications Medications (Trade) Dose Ordered Sig/Clyde Route PRN Reason Start Time Stop Time Status Last Admin Dose Admin Acetaminophen (Tylenol) 650 mg Q4H PRN ORAL fever 12/30/18 04:30 01/28/19 16:29 Chlordiazepoxide (Librium) 25 mg Q6H PRN ORAL Agitation 12/30/18 02:00 01/06/19 01:59 12/30/18 14:57 Dextrose (Dextrose 50%) 25 ml Q30M PRN IV Hypoglycemia 12/30/18 01:00 01/28/19 16:29 Dextrose (Dextrose 50%) 50 ml Q30M PRN IV Hypoglycemia 12/30/18 01:00 01/28/19 16:29 Folic Acid 1 mg/ Magnesium Sulfate 2000 mg/ Multivitamins 10 ml/Potassium Chloride/Sodium Chloride 1,014.2 ml @ 124.876 mls/hr Q24H IV 12/30/18 18:00 01/28/19 17:59 Heparin Sodium (Porcine) (Heparin 5000 units/ml) 5,000 units EVERY 12 HOURS SUBQ 12/30/18 09:00 01/28/19 20:59 Iopamidol (Isovue-300 100ml) 100 ml NOW PRN INJ Radiology Procedure 12/30/18 13:45 Lorazepam (Ativan 2mg/ml 1ml) 2 mg Q1H PRN IV SEIZURES 12/30/18 11:42 01/06/19 11:41 Lorazepam (Ativan 2mg/ml 1ml) 2 mg Q6H PRN IV Agitation 12/30/18 11:45 01/06/19 11:44 Morphine Sulfate (Morphine Sulfate) 1 mg Q4H PRN IVP For Pain 12/30/18 04:30 01/05/19 16:29 12/30/18 07:58 Ondansetron HCl (Zofran) 4 mg Q6H PRN IVP Nausea & Vomiting 12/30/18 04:30 01/28/19 16:29 Pantoprazole (Protonix) 40 mg BID ORAL 12/30/18 09:00 01/28/19 17:59 12/30/18 17:16 Piperacillin Sod/ Tazobactam Sod 3.375 gm/Sodium Chloride 110 ml @ 27.5 mls/hr Q8H IVPB 12/30/18 10:00 01/06/19 09:59 12/30/18 17:14 Polyethylene Glycol (Miralax) 17 gm HSPRN PRN ORAL Constipation 12/30/18 16:30 7/6/19 16:29 Thiamine HCl 100 mg/Dextrose 56 ml @ 112 mls/hr Q24H IVPB 12/30/18 18:00 01/28/19 17:59 Zolpidem Tartrate (Ambien) 5 mg HSPRN PRN ORAL Insomnia 12/30/18 02:00 01/05/19 01:59 12/30/18 03:41 Assessment/Plan Problem List: (1) Acute upper GI bleed ICD Codes: K92.2 - Gastrointestinal hemorrhage, unspecified SNOMED: 70762782 (2) Fecal impaction in rectum ICD Codes: K56.41 - Fecal impaction SNOMED: 87290687 (3) Esophagitis ICD Codes: K20.9 - Esophagitis, unspecified SNOMED: 81711144 (4) Alcoholic liver disease ICD Codes: K70.9 - Alcoholic liver disease, unspecified SNOMED: 58594780 (5) Elevated LFTs ICD Codes: R94.5 - Abnormal results of liver function studies SNOMED: 350463350, 793811281 (6) Acute alcoholic gastritis ICD Codes: K29.20 - Alcoholic gastritis without bleeding SNOMED: 4494098 Qualifiers: Qualified Codes: K29.20 - Alcoholic gastritis without bleeding (7) Psychosis ICD Codes: F29 - Unspecified psychosis not due to a substance or known physiological condition SNOMED: 44503405 (8) Acute alcoholic intoxication ICD Codes: F10.929 - Alcohol use, unspecified with intoxication, unspecified SNOMED: 58376945 (9) Acute encephalopathy ICD Codes: G93.40 - Encephalopathy, unspecified SNOMED: 63175659, 905897693 Status: not improved Assessment/Plan: RECOMMEND CIWA = withdrawal assessment Q 2-4 hours, with PRN IV Ativan 1-2mg Q2hrs PRN if score >8 Banana Bag IV recommended with folic acid/ B12 oral supplementation. Check B12/ Folate levels Seroquel 25mg PO Q8 PRN for additional agitation or as sleep aid. Q4 Neuro Obs IV Hydration PT Eval Case Management for homelessness/ alcoholism Check HgBA1c Check TSH Track Trend H/H Track trend LFTs / Ammonia Anika Pettit N.P. Dec 30, 2018 17:46
--- NOTE | 2018-12-30 17:47 | Diagnostic Imaging Report ---
Indication: Abdominal pain, abnormal liver function tests Technique: Cantu-scale and duplex images of the upper abdomen were obtained Comparison: 08/07/2017 Findings: There is mild amount of ascites fluid. Gallbladder demonstrates a small stones and sludge. Gallbladder wall is thickened, measuring 6 mm thick. It appears edematous and there is some pericholecystic edema Sonographic Metz's sign is negative. Common bile duct measures 4 mm in diameter. No intrahepatic biliary ductal dilatation. Liver is enlarged, demonstrates coarsened echogenicity and surface nodularity. No focal abnormality Portal vein and hepatic veins are patent. Pancreas is unremarkable. Spleen is unremarkable. Left kidney measures 11 cm in length. Right kidney measures 10.1 cm length. Both kidneys demonstrate normal echogenicity. There is no hydronephrosis. There is a small left renal cyst incidentally noted . Abdominal aorta is partially obscured by bowel gas, visualized portions are non-aneurysmal . Impression: Hepatomegaly. Coarsened hepatic echogenicity and surface nodularity suggests cirrhosis Ascites, not demonstrated previously Cholelithiasis and gallbladder sludge, not evident previously. Gallbladder wall thickening and pericholecystic fluid, probably due to the hepatocellular derangements, but the possibility of acute cholecystitis should also be considered. Correlate with clinical findings, consider nuclear medicine hepatobiliary scan if clinically indicated Negative for dilated bile ducts Incidental finding small left renal cyst Note inability to visualize the distal abdominal aorta
--- NOTE | 2018-12-30 17:48 | Diagnostic Imaging Report ---
Indication: Reason For Exam: ABN LABS Technique: Coronal and axial single shot fast spin-echo breath-hold, axial T2 FRFSE, 2-D thick slab MRCP, AXIAL 2-D FIESTA fat saturated, axial 3-D dual echo breath-hold, water weighted axial LAVA FLEX, revealed 3-D MRCP images were obtained of the abdomen. MIP reconstructions were generated of the bile ducts Comparison: Abdomen ultrasound 12/29/2018, CT abdomen and pelvis 12/29/2018 Findings: There is considerable image degradation due to motion artifact. Although not well visualized on any the other sequences, the common bile duct and common hepatic duct are reasonably well demonstrated on the coronal MRCP sequences, and clear normal in caliber. There is only minimal visualization of the central intrahepatic ducts. No definite intraluminal filling defects are demonstrated. Small gallstones are seen layering in the gallbladder lumen, best visualized on the axial fat saturated sequences. Mild thickening of the gallbladder wall is also described on prior sonogram The liver demonstrates surface nodularity, also described on recent ultrasound. No focal hepatic abnormality demonstrated. There is a small amount of ascites surrounding the right side of the liver. Small amount of ascites is so seen around the spleen in the mesenteric root. The pancreatic duct is not clearly visualized. Pancreas is unremarkable. The adrenals and kidneys are grossly unremarkable. Impression: Very limited exam, as described. Normal caliber bile ducts without definite filling defects to suggest choledocholithiasis Cholelithiasis. Gallbladder wall thickening, also described on prior sonogram. Most likely on the basis of hepatocellular derangement but the possibility of acute cholecystitis should also be considered Ascites Abnormal hepatic morphology, also previously described, suggestive of cirrhotic change
[2018-12-30] MEDS ORDERED: Thiamine HCl 100 MG in D5W 55 ML IVPB SCH (18:00)
[2018-12-30] MEDS ORDERED: Folic Acid 1 MG, Magnesium Sulfate 2,000 MG, Multivitamin - 12 Injection 10 ML in NS w/... IV SCH (18:00)
--- NOTE | 2018-12-30 19:28 | NUR ---
HAND-OFF: Report given to BRITTANY SOUTH.
--- NOTE | 2018-12-30 19:35 | NUR ---
NURSE NOTES: Received pt from BRANNON Boyle. Pt awake and resting in bed. Iv site intact. Bed in lowest position, locked, and call light within reach. Will continue with plan of care.
[2018-12-30 20:00] VITALS: BP 131/54
--- NOTE | 2018-12-30 21:42 | History & Physical ---
History and Physical History & Physicial Leonard Bautista MD Dec 30, 2018 21:42
--- NOTE | 2018-12-30 21:45 | Consultation ---
Consult Note Consult Note asked to eval at the request of Dr Martinez for fluid and electrolyte management late entry: seen around noon time ER Mr. Leone is a 58 yo male with PMHx of EtOH abuse, Depression and anxiety, SI who presented to the ED on 12/29/18 with N/V and abdominal pain. He reported 3 week of constiaption. He says that he has been of his Psych meds for months and want to drink himself to . He denoes fever and bleeding. In the ED he had a single high temp of 102 but has otherwise been aferbile. His WBCs were 12 but ar now down to 10. His AlkP is elevated at 500 and the AST is slightly elevated. He now reports feeling well. Denies SI and any abdominal pain. EtOH abuse Depression and anxiety SI No Known Allergies (Verified , 10/22/06) examined data reviewed Assessment/Plan Acute Alcoholic Gastritis / Encephalopathy - Intoxication Alcoholic Hepatitis Anemia Hypokalemia Psych disease Fluids K and Mag and Phos supplement Monitor lytes / Lfts per orders Leonard Bautista MD Dec 30, 2018 21:45
[2018-12-31] VITALS: BP 100/82
[2018-12-31] MEDS: Zoysn 3.37gm in NS 100ML IVPB SCH ×3 (02:23→18:00)
[2018-12-31] MEDS: Zolpidem 5mg tab ORAL PRN ×2 (03:16→22:45)
[2018-12-31] MEDS: chlordiazePOXIDE 25mg Cap ORAL PRN (03:16)
[2018-12-31] MEDS ORDERED: KCL IV ONE (03:41)
[2018-12-31] MEDS ORDERED: NS IV ONE (03:41)
[2018-12-31 04:00] VITALS: BP 102/78
--- NOTE | 2018-12-31 05:55 | Pulmonology Progress Note ---
Assessment/Plan Problems: (1) Acute alcoholic intoxication (2) Acute encephalopathy (3) Acute upper GI bleed (4) Coagulopathy (5) Psychosis Assessment/Plan MRCP noted, not helpful ERCP planned keep in teli as long as tachycardic symptomatic treatment lactulose f/u Ammonia level. Subjective ROS Limited/Unobtainable: No Constitutional: Reports: no symptoms HEENT: Repors: no symptoms Respiratory: Reports: no symptoms Allergies: Coded Allergies: No Known Allergies (Verified , 10/22/06) Objective Last 24 Hour Vital Signs Date Time Temp Pulse Resp B/P (MAP) Pulse Ox O2 Delivery O2 Flow Rate FiO2 12/31/18 04:00 105 12/31/18 04:00 97.7 105 18 102/78 (86) 98 12/31/18 00:00 107 12/31/18 00:00 97.7 107 18 100/82 (88) 97 12/30/18 21:00 Room Air 12/30/18 20:00 115 12/30/18 20:00 96.0 115 18 131/54 (79) 96 12/30/18 16:00 103 12/30/18 16:00 99.5 98 20 101/63 (76) 95 12/30/18 12:16 98.6 106 20 123/80 (94) 96 12/30/18 12:00 103 12/30/18 11:22 Room Air 12/30/18 08:28 97.8 12/30/18 08:00 114 12/30/18 08:00 97.8 106 20 130/73 (92) 97 Intake and Output 12/30/18 12/31/18 18:59 06:59 # Bowel Movements 2 General Appearance: WD/WN HEENT: normocephalic, atraumatic Respiratory/Chest: chest wall non-tender, lungs clear Cardiovascular: normal peripheral pulses, normal rate, regular rhythm Abdomen: normal bowel sounds, soft, non tender Genitourinary: normal external genitalia Extremities: no clubbing Skin: no lesions Neurologic/Psychiatric: java programmer II-XII grossly normal, no motor/sensory deficits, abnormal gait Microbiology Date/Time Source Procedure Growth Status 12/29/18 16:24 Nasal Nares MRSA Culture - Final NO METHICILLIN RESISTANT STAPH AUREUS... Complete Laboratory Tests 12/30/18 06:00: White Blood Count 10.1, Red Blood Count 2.55L, Hemoglobin 8.4L, Hematocrit 26.9L , Mean Corpuscular Volume 105H, Mean Corpuscular Hemoglobin 33.0H, Mean Corpuscular Hemoglobin Concent 31.4L, Red Cell Distribution Width 17.1H, Platelet Count 117L, Mean Platelet Volume 7.5, Neutrophils (%) (Auto) 77.7H, Lymphocytes (%) (Auto) 9.2L, Monocytes (%) (Auto) 10.3H, Eosinophils (%) (Auto) 1.4, Basophils (%) (Auto) 1.4, Sodium Level 141, Potassium Level 3.2L, Chloride Level 105, Carbon Dioxide Level 29, Anion Gap 7, Blood Urea Nitrogen 9, Creatinine 0.7, Estimat Glomerular Filtration Rate > 60, Glucose Level 107H, Calcium Level 6.9L, Total Bilirubin 10.0H, Direct Bilirubin 8.7H, Aspartate Amino Transf (AST/SGOT) 164H, Alanine Aminotransferase (ALT/SGPT) 37, Alkaline Phosphatase 508H, Total Protein 5.4L, Albumin 1.8L, Globulin 3.6, Albumin/ Globulin Ratio 0.5L 12/30/18 21:50: Ammonia 134H Current Medications Medications (Trade) Dose Ordered Sig/Clyde Route PRN Reason Start Time Stop Time Status Last Admin Dose Admin Acetaminophen (Tylenol) 650 mg Q4H PRN ORAL fever 12/30/18 04:30 01/28/19 16:29 Chlordiazepoxide (Librium) 25 mg Q6H PRN ORAL Agitation 12/30/18 02:00 01/06/19 01:59 12/31/18 03:16 Dextrose (Dextrose 50%) 25 ml Q30M PRN IV Hypoglycemia 12/30/18 01:00 01/28/19 16:29 Dextrose (Dextrose 50%) 50 ml Q30M PRN IV Hypoglycemia 12/30/18 01:00 01/28/19 16:29 Folic Acid 1 mg/ Magnesium Sulfate 2000 mg/ Multivitamins 10 ml/Potassium Chloride/Sodium Chloride 1,014.2 ml @ 124.876 mls/hr Q24H IV 12/30/18 18:00 01/28/19 17:59 12/30/18 17:58 Heparin Sodium (Porcine) (Heparin 5000 units/ml) 5,000 units EVERY 12 HOURS SUBQ 6/7/19 09:00 01/28/19 20:59 Iopamidol (Isovue-300 100ml) 100 ml NOW PRN INJ Radiology Procedure 12/30/18 13:45 Lactulose (Cephulac) 30 gm FOUR TIMES A DAY ORAL 12/31/18 09:00 01/30/19 08:59 Lorazepam (Ativan 2mg/ml 1ml) 2 mg Q1H PRN IV SEIZURES 12/30/18 11:42 01/06/19 11:41 Lorazepam (Ativan 2mg/ml 1ml) 2 mg Q6H PRN IV Agitation 12/30/18 11:45 01/06/19 11:44 Morphine Sulfate (Morphine Sulfate) 1 mg Q4H PRN IVP For Pain 12/30/18 04:30 01/05/19 16:29 12/30/18 07:58 Ondansetron HCl (Zofran) 4 mg Q6H PRN IVP Nausea & Vomiting 12/30/18 04:30 01/28/19 16:29 Pantoprazole (Protonix) 40 mg BID ORAL 12/30/18 09:00 01/28/19 17:59 12/30/18 17:16 Piperacillin Sod/ Tazobactam Sod 3.375 gm/Sodium Chloride 110 ml @ 27.5 mls/hr Q8H IVPB 12/30/18 10:00 01/06/19 09:59 12/31/18 02:23 Polyethylene Glycol (Miralax) 17 gm HSPRN PRN ORAL Constipation 12/30/18 16:30 01/28/19 16:29 Thiamine HCl 100 mg/Dextrose 56 ml @ 112 mls/hr Q24H IVPB 12/30/18 18:00 01/28/19 17:59 12/30/18 17:58 Zolpidem Tartrate (Ambien) 5 mg HSPRN PRN ORAL Insomnia 12/30/18 02:00 01/05/19 01:59 12/31/18 03:16 Marion Schneider MD Dec 31, 2018 05:55
--- NOTE | 2018-12-31 07:15 | NUR ---
HAND-OFF: Report given to BRANNON Quintero. Endorsed plan of care.
--- NOTE | 2018-12-31 07:57 | Consultation ---
History of Present Illness General Date patient seen: Dec 31, 2018 Time patient seen: 07:50 Chief Complaint: Abdominal Pain Referring physician: Dr Sam Martinez Reason for Consultation: Alcohol Withdrawal Present Illness HPI Patient c/o abdominal pain and vomiting with blood today. Per neighbor, patient has home and family and has been living on [address] and drinking alcohol all day. CT scan/MRI revealed cirrhosis and possible cholecystitis. Serum alcohol 169 Allergies: Coded Allergies: No Known Allergies (Verified , 10/22/06) Medication History Scheduled Carbamide Peroxide (Debrox), 10 DROP LEFT EAR TWICE A DAY Clonazepam* (Klonopin*), 1 MG ORAL QHS Divalproex Sodium* (Depakote*), 550 MG PO QHS, (Reported) Insulin Lispro (Humalog), 0 SUBQ AC+HS Lidocaine HCl 2% Viscous (Lidocaine HCl 2% Viscous), 15 ML PO TID Quetiapine Fumarate (Seroquel), 50 MG ORAL DAILY, (Reported) Quetiapine Fumarate* (Seroquel*), 25 MG ORAL Q8HR Rifaximin* (Xifaxan*), 550 MG ORAL Q12HR, (Reported) Spironolactone* (Aldactone*), 25 MG ORAL Q12HR Sucralfate* (Carafate*), 1 GM ORAL FOUR TIMES A DAY Scheduled PRN Diazepam* (Valium*), 10 MG ORAL Q6HR PRN for ANXIETY Miscellaneous Medications Unable to Obtain Medications (Unable To Obtain Meds), (Reported) Patient History Healthcare decision maker Resuscitation status Full Code Advanced Directive on File Review of Systems Constitutional: Reports: malaise, weakness Eye: Reports: no symptoms ENT: Reports: no symptoms Respiratory: Reports: no symptoms Cardiovascular: Reports: no symptoms Gastrointestinal: Reports: abdominal pain, nausea Genitourinary: Reports: no symptoms Musculoskeletal: Reports: no symptoms Skin: Reports: no symptoms Psychiatric: Reports: emotional problems Neurological: Reports: no symptoms Hematologic/Lymphatic: Reports: no symptoms Physical Exam General Appearance: no apparent distress, confused, mild distress, agitated Lines, tubes and drains: peripheral HEENT: normocephalic, atraumatic, PERRL, EOMI Neck: non-tender, normal alignment, supple, normal inspection Respiratory/Chest: chest wall non-tender, lungs clear, normal breath sounds Cardiovascular/Chest: normal peripheral pulses, tachycardia Abdomen: normal bowel sounds, non tender, distended, hepatomegaly Extremities: normal range of motion, non-tender, normal inspection, normal capillary refill, non-pitting Skin Exam: normal pigmentation, warm/dry, jaundice 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, no motor/sensory deficits Last 24 Hour Vital Signs Date Time Temp Pulse Resp B/P (MAP) Pulse Ox O2 Delivery O2 Flow Rate FiO2 12/31/18 04:00 105 12/31/18 04:00 97.7 105 18 102/78 (86) 98 12/31/18 00:00 107 12/31/18 00:00 97.7 107 18 100/82 (88) 97 12/30/18 21:00 Room Air 12/30/18 20:00 115 12/30/18 20:00 96.0 115 18 131/54 (79) 96 12/30/18 16:00 103 12/30/18 16:00 99.5 98 20 101/63 (76) 95 12/30/18 12:16 98.6 106 20 123/80 (94) 96 12/30/18 12:00 103 12/30/18 11:22 Room Air 12/30/18 08:28 97.8 12/30/18 08:00 114 12/30/18 08:00 97.8 106 20 130/73 (92) 97 Intake and Output 12/30/18 12/31/18 19:00 07:00 # Bowel Movements 2 Laboratory Tests Test 12/30/18 21:50 12/31/18 06:15 Ammonia 134 umol/L (11-32) H Pending White Blood Count Pending Red Blood Count Pending Hemoglobin Pending Hematocrit Pending Mean Corpuscular Volume Pending Mean Corpuscular Hemoglobin Pending Mean Corpuscular Hemoglobin Concent Pending Red Cell Distribution Width Pending Platelet Count Pending Mean Platelet Volume Pending Neutrophils (%) (Auto) Pending Lymphocytes (%) (Auto) Pending Monocytes (%) (Auto) Pending Eosinophils (%) (Auto) Pending Basophils (%) (Auto) Pending Reticulocyte Count Pending Prothrombin Time Pending Prothromb Time International Ratio Pending Activated Partial Thromboplast Time Pending Sodium Level Pending Potassium Level Pending Chloride Level Pending Carbon Dioxide Level Pending Blood Urea Nitrogen Pending Creatinine Pending Estimat Glomerular Filtration Rate Pending Glucose Level Pending Hemoglobin A1c Pending Uric Acid Pending Calcium Level Pending Phosphorus Level Pending Magnesium Level Pending Iron Level Pending Unsaturated Iron Binding Pending Ferritin Pending Total Bilirubin Pending Gamma Glutamyl Transpeptidase Pending Aspartate Amino Transf (AST/SGOT) Pending Alanine Aminotransferase (ALT/SGPT) Pending Alkaline Phosphatase Pending Total Protein Pending Albumin Pending Globulin Pending Triglycerides Level Pending Cholesterol Level Pending LDL Cholesterol Pending HDL Cholesterol Pending Cholesterol/HDL Ratio Pending Vitamin B12 Level Pending Folate Pending Thyroid Stimulating Hormone (TSH) Pending Free Thyroxine Pending Height (Feet): 5 Height (Inches): 5.00 Weight (Pounds): 160 Medications Current Medications Medications (Trade) Dose Ordered Sig/Clyde Route PRN Reason Start Time Stop Time Status Last Admin Dose Admin Acetaminophen (Tylenol) 650 mg Q4H PRN ORAL fever 12/30/18 04:30 01/28/19 16:29 Chlordiazepoxide (Librium) 25 mg Q6H PRN ORAL Agitation 12/30/18 02:00 01/06/19 01:59 12/31/18 03:16 Dextrose (Dextrose 50%) 25 ml Q30M PRN IV Hypoglycemia 12/30/18 01:00 01/28/19 16:29 Dextrose (Dextrose 50%) 50 ml Q30M PRN IV Hypoglycemia 12/30/18 01:00 01/28/19 16:29 Folic Acid 1 mg/ Magnesium Sulfate 2000 mg/ Multivitamins 10 ml/Potassium Chloride/Sodium Chloride 1,014.2 ml @ 124.876 mls/hr Q24H IV 12/30/18 18:00 01/28/19 17:59 12/30/18 17:58 Heparin Sodium (Porcine) (Heparin 5000 units/ml) 5,000 units EVERY 12 HOURS SUBQ 12/30/18 09:00 01/28/19 20:59 Iopamidol (Isovue-300 100ml) 100 ml NOW PRN INJ Radiology Procedure 12/30/18 13:45 Lactulose (Cephulac) 30 gm FOUR TIMES A DAY ORAL 12/31/18 09:00 01/30/19 08:59 Lorazepam (Ativan 2mg/ml 1ml) 2 mg Q1H PRN IV SEIZURES 12/30/18 11:42 01/06/19 11:41 Lorazepam (Ativan 2mg/ml 1ml) 2 mg Q6H PRN IV Agitation 12/30/18 11:45 01/06/19 11:44 Morphine Sulfate (Morphine Sulfate) 1 mg Q4H PRN IVP For Pain 12/30/18 04:30 01/05/19 16:29 12/30/18 07:58 Ondansetron HCl (Zofran) 4 mg Q6H PRN IVP Nausea & Vomiting 12/30/18 04:30 01/28/19 16:29 Pantoprazole (Protonix) 40 mg BID ORAL 12/30/18 09:00 01/28/19 17:59 12/30/18 17:16 Piperacillin Sod/ Tazobactam Sod 3.375 gm/Sodium Chloride 110 ml @ 27.5 mls/hr Q8H IVPB 12/30/18 10:00 01/06/19 09:59 12/31/18 02:23 Polyethylene Glycol (Miralax) 17 gm HSPRN PRN ORAL Constipation 12/30/18 16:30 01/28/19 16:29 Thiamine HCl 100 mg/Dextrose 56 ml @ 112 mls/hr Q24H IVPB 12/30/18 18:00 01/28/19 17:59 12/30/18 17:58 Zolpidem Tartrate (Ambien) 5 mg HSPRN PRN ORAL Insomnia 12/30/18 02:00 01/05/19 01:59 12/31/18 03:16 Assessment/Plan Status: stable Assessment/Plan: Assessment/Plan Problems: (1) Acute alcoholic gastritis (2) Elevated LFTs (3) Alcoholic liver disease (4) Esophagitis (6) Psychosis (7) Acute alcoholic intoxication (8) Cirrhosis PLAN: ERCP per GI IV fluids Multivitamin Continue telemetry TTE to evaluate for alochol cardiomyopathy Devon Bolivar MD Dec 31, 2018 07:57
[2018-12-31 08:00] VITALS: BP 88/60
[2018-12-31 08:06] LABS: BASOPHILS % (AUTO) 1.1 % (0.0-2.0); EOSINOPHILS % (AUTO) 4.8 % (0.0-3.0); HEMATOCRIT 27.9 % (42.0-52.0); HEMOGLOBIN 8.7 G/DL (14.2-18.0); LYMPHOCYTES % (AUTO) 10.1 % (20.0-45.0); MEAN CORPUSCULAR VOLUME 104 FL (80-99); MONOCYTES % (AUTO) 6.5 % (1.0-10.0); NEUTROPHILS % (AUTO) 77.6 % (45.0-75.0); PLATELET COUNT 178 K/UL (150-450); RED BLOOD COUNT 2.68 M/UL (4.70-6.10); RED CELL DISTRIBUTION WIDTH 16.3 % (11.6-14.8); WHITE BLOOD COUNT 11.2 K/UL (4.8-10.8)
[2018-12-31 08:10] LABS: INR 1.5 (0.9-1.1)
--- NOTE | 2018-12-31 08:28 | General Progress Note ---
Assessment/Plan Problem List: (1) Abdominal pain ICD Codes: R10.9 - Unspecified abdominal pain SNOMED: 39815200 (2) Anemia ICD Codes: D64.9 - Anemia, unspecified SNOMED: 893024745 (3) Alcoholic liver disease ICD Codes: K70.9 - Alcoholic liver disease, unspecified SNOMED: 46587059 (4) Acute alcoholic gastritis ICD Codes: K29.20 - Alcoholic gastritis without bleeding SNOMED: 4006236 Qualifiers: Qualified Codes: K29.20 - Alcoholic gastritis without bleeding Status: stable, progressing Assessment/Plan: detox gi f/u cbc bmp Subjective Constitutional: Reports: weakness Allergies: Coded Allergies: No Known Allergies (Verified , 10/22/06) All Systems: reviewed and negative except above Subjective awake calm Objective Last 24 Hour Vital Signs Date Time Temp Pulse Resp B/P (MAP) Pulse Ox O2 Delivery O2 Flow Rate FiO2 12/31/18 08:00 98.5 105 18 88/60 (69) 98 12/31/18 04:00 105 12/31/18 04:00 97.7 105 18 102/78 (86) 98 12/31/18 00:00 107 12/31/18 00:00 97.7 107 18 100/82 (88) 97 12/30/18 21:00 Room Air 12/30/18 20:00 115 12/30/18 20:00 96.0 115 18 131/54 (79) 96 12/30/18 16:00 103 12/30/18 16:00 99.5 98 20 101/63 (76) 95 12/30/18 12:16 98.6 106 20 123/80 (94) 96 12/30/18 12:00 103 12/30/18 11:22 Room Air 12/30/18 08:28 97.8 Intake and Output 12/30/18 12/31/18 19:00 07:00 # Bowel Movements 2 Laboratory Tests 12/30/18 21:50: Ammonia 134H 12/31/18 06:15: Ammonia 134H, White Blood Count 11.2H, Red Blood Count 2.68L, Hemoglobin 8.7L, Hematocrit 27.9L, Mean Corpuscular Volume 104H, Mean Corpuscular Hemoglobin 32.6H, Mean Corpuscular Hemoglobin Concent 31.2L, Red Cell Distribution Width 16.3H, Platelet Count 178#, Mean Platelet Volume 8.0, Neutrophils (%) (Auto) 77.6H, Lymphocytes (%) (Auto) 10.1L, Monocytes (%) (Auto) 6.5, Eosinophils (%) ( Auto) 4.8H, Basophils (%) (Auto) 1.1, Reticulocyte Count [Pending], Prothrombin Time 15.5H, Prothromb Time International Ratio 1.5H, Activated Partial Thromboplast Time 33, Sodium Level [Pending], Potassium Level [Pending], Chloride Level [Pending], Carbon Dioxide Level [Pending], Blood Urea Nitrogen [ Pending], Creatinine [Pending], Estimat Glomerular Filtration Rate [Pending], Glucose Level [Pending], Hemoglobin A1c [Pending], Uric Acid [Pending], Calcium Level [Pending], Phosphorus Level [Pending], Magnesium Level [Pending], Iron Level [Pending], Unsaturated Iron Binding [Pending], Ferritin [Pending], Total Bilirubin [Pending], Gamma Glutamyl Transpeptidase [Pending], Aspartate Amino Transf (AST/SGOT) [Pending], Alanine Aminotransferase (ALT/SGPT) [Pending], Alkaline Phosphatase [Pending], Total Protein [Pending], Albumin [Pending], Globulin [Pending], Triglycerides Level [Pending], Cholesterol Level [Pending], LDL Cholesterol [Pending], HDL Cholesterol [Pending], Cholesterol/HDL Ratio [ Pending], Vitamin B12 Level [Pending], Folate [Pending], Thyroid Stimulating Hormone (TSH) [Pending], Free Thyroxine [Pending] Height (Feet): 5 Height (Inches): 5.00 Weight (Pounds): 160 General Appearance: lethargic EENT: normal ENT inspection Neck: normal alignment Cardiovascular: normal peripheral pulses, normal rate, regular rhythm Respiratory/Chest: chest wall non-tender, lungs clear, normal breath sounds Abdomen: normal bowel sounds, non tender, distended Extremities: normal inspection Edema: no edema noted Arm (L), no edema noted Arm (R), no edema noted Leg (L), no edema noted Leg (R), no edema noted Pedal (L), no edema noted Pedal (R), no edema noted Generalized Neurologic: responsive, motor weakness Skin: normal pigmentation, warm/dry Martinez,Corwin Chi-Loreto DO Dec 31, 2018 08:28
[2018-12-31] MEDS: Lactulose 20gm/30ml UDC ORAL SCH ×4 (08:29→20:20)
[2018-12-31] MEDS: Heparin 5000 units/ml inj SUBQ SCH ×2 (08:33→20:21)
[2018-12-31 08:50] LABS: CHOLESTEROL 129 MG/DL (< 200); HDL CHOLESTEROL 7 MG/DL (40-60); TRIGLYCERIDES 151 MG/DL (30-150)
[2018-12-31 08:56] LABS: ALANINE AMINOTRANSFERASE 33 U/L (12-78); ALBUMIN 1.7 G/DL (3.4-5.0); ALBUMIN/GLOBULIN RATIO 0.5 (1.0-2.7); ALKALINE PHOSPHATASE 442 U/L (46-116); ANION GAP 7 mmol/L (5-15); ASPARTATE AMINO TRANSFERASE 134 U/L (15-37); BILIRUBIN,TOTAL 11.5 MG/DL (0.2-1.0); BLOOD UREA NITROGEN 8 mg/dL (7-18); CARBON DIOXIDE 26 MMOL/L (21-32); CHLORIDE 106 MMOL/L (98-107); CREATININE 0.7 MG/DL (0.55-1.30); FERRITIN 135 NG/ML (8-388); POTASSIUM 3.6 MMOL/L (3.5-5.1); SODIUM 139 MMOL/L (136-145)
--- NOTE | 2018-12-31 10:03 | Infectious Diseases Prog Note ---
Assessment/Plan Assessment/Plan Assessment/Plan: 58 yo male with PMHx of EtOH abuse, Depression and anxiety, SI who presented to the ED on 12/29/18 with N/V and abdominal pain. Leukocytosis and single high temp- Probable acute cholecystitis Likely due to gastritis from EtOH need -MRCP : Very limited exam, as described. Normal caliber bile ducts without definite filling defects to suggest choledocholithiasis Cholelithiasis. Gallbladder wall thickening, also described on prior sonogram. Most likely on the basis of hepatocellular derangement but the possibility of acute cholecystitis should also be considered. Ascites. Abnormal hepatic morphology, also previously described, suggestive of cirrhotic change -Abd US: Hepatomegaly. Coarsened hepatic echogenicity and surface nodularitysuggests cirrhosis. Ascites, not demonstrated previously. Cholelithiasis and gallbladder sludge, not evident previously. Gallbladder wall thickening and pericholecystic fluid, probably due to the hepatocellular derangements, but the possibility of acute cholecystitis should also be considered. Correlate with clinical findings, consider nuclear medicine hepatobiliary scan if clinically indicated. Negative for dilated bile ducts. Incidental finding small left renal cyst -CT abd/p: Chronic liver disease/cirrhosis with fatty infiltration, enlargement of the liver and stigmata of portal hypertension including ascites and splenomegaly, recanalized umbilical vein. Basilar atelectasis. Probable gallstones. Tiny bilateral renal hypodensities too small to characterize.Fecal impaction Cirrhosis EtOH abuse Depression and anxiety SI PLAN: - Continue Zosyn #2 for probable acute cholecystitis - Monitor CBC and Temps - Monitor clincially -HIV ab, hep panel Thank you for this consult. We will continue to follow the patient during this hospitalization. Subjective Allergies: Coded Allergies: No Known Allergies (Verified , 10/22/06) Subjective afebrile >24hrs mild leukocytosis Objective Vital Signs Last 24 Hour Vital Signs Date Time Temp Pulse Resp B/P (MAP) Pulse Ox O2 Delivery O2 Flow Rate FiO2 12/31/18 08:00 98.5 105 18 88/60 (69) 98 12/31/18 04:00 105 12/31/18 04:00 97.7 105 18 102/78 (86) 98 12/31/18 00:00 107 12/31/18 00:00 97.7 107 18 100/82 (88) 97 12/30/18 21:00 Room Air 12/30/18 20:00 115 6/7/19 20:00 96.0 115 18 131/54 (79) 96 12/30/18 16:00 103 12/30/18 16:00 99.5 98 20 101/63 (76) 95 12/30/18 12:16 98.6 106 20 123/80 (94) 96 12/30/18 12:00 103 12/30/18 11:22 Room Air Height (Feet): 5 Height (Inches): 5.00 Weight (Pounds): 160 Objective Gen: NAD HEENT: NCAT, MMM, EOMI, PERRL, No Oral lesion, no scleral icterus but blood shot NECK: full range of motion, supple, no meningismus, No LAD, No JVD LUNGS: CTAB, No W/C, No Accessory muscle use CARDS: RRR, S1, S2, No M/R/G, ABD: Soft, Epigastric pain, ND, No R/G, + BS, No HSM, No Masses : Deferred Ext: C/C/E, Pulses 2+ B/L (DP, Rad): NEURO: A/O x 4, Strength and Sensation Grossly intact PSYCH: Depressed SKIN: Warm/dry, No rashes Microbiology Date/Time Source Procedure Growth Status 12/29/18 16:24 Nasal Nares MRSA Culture - Final NO METHICILLIN RESISTANT STAPH AUREUS... Complete 12/29/18 16:24 Rectum VRE Culture - Final NO VANCOMYCIN RESISTANT ENTEROCOCCUS ... Complete 12/29/18 10:50 Rectum - Final NO CARBAPENEM-RESISTANT ENTEROBACTERI... Complete Laboratory Tests Test 12/30/18 21:50 12/31/18 06:15 Ammonia 134 umol/L (11-32) H 134 umol/L (11-32) H White Blood Count 11.2 K/UL (4.8-10.8) H Red Blood Count 2.68 M/UL (4.70-6.10) L Hemoglobin 8.7 G/DL (14.2-18.0) L Hematocrit 27.9 % (42.0-52.0) L Mean Corpuscular Volume 104 FL (80-99) H Mean Corpuscular Hemoglobin 32.6 PG (27.0-31.0) H Mean Corpuscular Hemoglobin Concent 31.2 G/DL (32.0-36.0) L Red Cell Distribution Width 16.3 % (11.6-14.8) H Platelet Count 178 K/UL (150-450) # Mean Platelet Volume 8.0 FL (6.5-10.1) Neutrophils (%) (Auto) 77.6 % (45.0-75.0) H Lymphocytes (%) (Auto) 10.1 % (20.0-45.0) L Monocytes (%) (Auto) 6.5 % (1.0-10.0) Eosinophils (%) (Auto) 4.8 % (0.0-3.0) H Basophils (%) (Auto) 1.1 % (0.0-2.0) Reticulocyte Count Pending Prothrombin Time 15.5 SEC (9.30-11.50) H Prothromb Time International Ratio 1.5 (0.9-1.1) H Activated Partial Thromboplast Time 33 SEC (23-33) Sodium Level 139 MMOL/L (136-145) Potassium Level 3.6 MMOL/L (3.5-5.1) Chloride Level 106 MMOL/L (98-107) Carbon Dioxide Level 26 MMOL/L (21-32) Anion Gap 7 mmol/L (5-15) Blood Urea Nitrogen 8 mg/dL (7-18) Creatinine 0.7 MG/DL (0.55-1.30) Estimat Glomerular Filtration Rate > 60 mL/min (>60) Glucose Level 118 MG/DL (74-106) H Hemoglobin A1c 4.5 % (4.3-6.0) Uric Acid 1.0 MG/DL (2.6-7.2) L Calcium Level 7.0 MG/DL (8.5-10.1) L Phosphorus Level 1.0 MG/DL (2.5-4.9) L Magnesium Level 2.2 MG/DL (1.8-2.4) Iron Level Pending Unsaturated Iron Binding Pending Ferritin 135 NG/ML (8-388) Total Bilirubin 11.5 MG/DL (0.2-1.0) H Direct Bilirubin 10.0 MG/DL (0.0-0.3) H Gamma Glutamyl Transpeptidase 1954 U/L (5-85) H Aspartate Amino Transf (AST/SGOT) 134 U/L (15-37) H Alanine Aminotransferase (ALT/SGPT) 33 U/L (12-78) Alkaline Phosphatase 442 U/L (46-116) H Total Protein 5.2 G/DL (6.4-8.2) L Albumin 1.7 G/DL (3.4-5.0) L Globulin 3.5 g/dL Albumin/Globulin Ratio 0.5 (1.0-2.7) L Triglycerides Level 151 MG/DL (30-150) H Cholesterol Level 129 MG/DL (< 200) LDL Cholesterol 105 mg/dL (<100) H HDL Cholesterol 7 MG/DL (40-60) L Cholesterol/HDL Ratio 18.4 (3.3-4.4) H Vitamin B12 Level Pending Folate Pending Thyroid Stimulating Hormone (TSH) 2.099 uiU/mL (0.358-3.740) Free Thyroxine 1.45 NG/DL (0.76-1.46) Current Medications Medications (Trade) Dose Ordered Sig/Clyde Route PRN Reason Start Time Stop Time Status Last Admin Dose Admin Acetaminophen (Tylenol) 650 mg Q4H PRN ORAL fever 12/30/18 04:30 01/28/19 16:29 Chlordiazepoxide (Librium) 25 mg Q6H PRN ORAL Agitation 12/30/18 02:00 01/06/19 01:59 12/31/18 03:16 Dextrose (Dextrose 50%) 25 ml Q30M PRN IV Hypoglycemia 12/30/18 01:00 01/28/19 16:29 Dextrose (Dextrose 50%) 50 ml Q30M PRN IV Hypoglycemia 12/30/18 01:00 01/28/19 16:29 Folic Acid 1 mg/ Magnesium Sulfate 2000 mg/ Multivitamins 10 ml/Potassium Chloride/Sodium Chloride 1,014.2 ml @ 124.876 mls/hr Q24H IV 12/30/18 18:00 01/28/19 17:59 12/30/18 17:58 Heparin Sodium (Porcine) (Heparin 5000 units/ml) 5,000 units EVERY 12 HOURS SUBQ 12/30/18 09:00 01/28/19 20:59 12/31/18 08:33 Iopamidol (Isovue-300 100ml) 100 ml NOW PRN INJ Radiology Procedure 12/30/18 13:45 Lactulose (Cephulac) 30 gm FOUR TIMES A DAY ORAL 12/31/18 09:00 01/30/19 08:59 12/31/18 08:29 Lorazepam (Ativan 2mg/ml 1ml) 2 mg Q1H PRN IV SEIZURES 12/30/18 11:42 01/06/19 11:41 Lorazepam (Ativan 2mg/ml 1ml) 2 mg Q6H PRN IV Agitation 12/30/18 11:45 01/06/19 11:44 Morphine Sulfate (Morphine Sulfate) 1 mg Q4H PRN IVP For Pain 12/30/18 04:30 01/05/19 16:29 12/30/18 07:58 Ondansetron HCl (Zofran) 4 mg Q6H PRN IVP Nausea & Vomiting 12/30/18 04:30 01/28/19 16:29 Pantoprazole (Protonix) 40 mg BID ORAL 12/30/18 09:00 01/28/19 17:59 12/31/18 08:28 Piperacillin Sod/ Tazobactam Sod 3.375 gm/Sodium Chloride 110 ml @ 27.5 mls/hr Q8H IVPB 12/30/18 10:00 01/06/19 09:59 12/31/18 02:23 Polyethylene Glycol (Miralax) 17 gm HSPRN PRN ORAL Constipation 12/30/18 16:30 01/28/19 16:29 Potassium Phosphate 30 mm/ Sodium Chloride 285 ml @ 47.5 mls/hr ONCE ONCE IV 12/31/18 11:00 12/31/18 16:59 Sodium Phosphate 30 mm/Sodium Chloride 285 ml @ 47.5 mls/hr ONCE ONCE IVPB 12/31/18 11:00 12/31/18 16:59 Thiamine HCl 100 mg/Dextrose 56 ml @ 112 mls/hr Q24H IVPB 12/30/18 18:00 01/28/19 17:59 12/30/18 17:58 Zolpidem Tartrate (Ambien) 5 mg HSPRN PRN ORAL Insomnia 12/30/18 02:00 01/05/19 01:59 12/31/18 03:16 Carmen Berumen M.D. Dec 31, 2018 10:03
[2018-12-31 10:39] LABS: % IRON SATURATION 20 % (15-50); IRON 29 ug/dL (50-175); TOTAL IRON BINDING CAPACITY 142 ug/dL (250-450)
[2018-12-31] MEDS ORDERED: Sodium Phosphate 30 MM in NS 275 ML IVPB ONE (11:00)
[2018-12-31] MEDS ORDERED: Potassium Phosphate 30 MM in NS 275 ML IV ONE (11:00)
[2018-12-31 11:43] VITALS: BP 116/63
[2018-12-31] MEDS: LORazepam Inj 2mg/ml 1ml IV PRN ×2 (11:53→18:23)
--- NOTE | 2018-12-31 11:54 | NUR ---
NURSE NOTES: pt awake alert, no distress. no sob. call light within reach. bed in lowest position, locked.
--- NOTE | 2018-12-31 11:55 | NUR ---
NURSE NOTES: pt episode of restlessness , getting out of bed, safety precautions applied, pt put back to bed, bed in lowest position, ativan prn given pt requests for prn ativan too, will monitor effectiveness, call light within reach. pt has some confusion as well.
--- NOTE | 2018-12-31 12:01 | Nephrology Progress Note ---
Assessment/Plan Problem List: (1) Alcoholic liver disease (2) Anemia (3) Electrolyte disorder Assessment Acute Alcoholic Gastritis / Encephalopathy - Intoxication Alcoholic Hepatitis Anemia Hypokalemia Psych disease Plan Fluids K and Mag and Phos supplement Monitor lytes / Lfts per orders Subjective ROS Limited/Unobtainable: No Constitutional: Reports: malaise, weakness Objective Objective Last 24 Hour Vital Signs Date Time Temp Pulse Resp B/P (MAP) Pulse Ox O2 Delivery O2 Flow Rate FiO2 12/31/18 11:43 98.5 101 18 116/63 (80) 98 12/31/18 09:00 Room Air 12/31/18 08:00 98.5 105 18 88/60 (69) 98 12/31/18 07:50 106 12/31/18 04:00 105 12/31/18 04:00 97.7 105 18 102/78 (86) 98 12/31/18 00:00 107 12/31/18 00:00 97.7 107 18 100/82 (88) 97 12/30/18 21:00 Room Air 12/30/18 20:00 115 12/30/18 20:00 96.0 115 18 131/54 (79) 96 12/30/18 16:00 103 12/30/18 16:00 99.5 98 20 101/63 (76) 95 12/30/18 12:16 98.6 106 20 123/80 (94) 96 Intake and Output 12/30/18 12/31/18 19:00 07:00 # Bowel Movements 2 Laboratory Tests 12/30/18 21:50: Ammonia 134H 12/31/18 06:15: Ammonia 134H, White Blood Count 11.2H, Red Blood Count 2.68L, Hemoglobin 8.7L, Hematocrit 27.9L, Mean Corpuscular Volume 104H, Mean Corpuscular Hemoglobin 32.6H, Mean Corpuscular Hemoglobin Concent 31.2L, Red Cell Distribution Width 16.3H, Platelet Count 178#, Mean Platelet Volume 8.0, Neutrophils (%) (Auto) 77.6H, Lymphocytes (%) (Auto) 10.1L, Monocytes (%) (Auto) 6.5, Eosinophils (%) ( Auto) 4.8H, Basophils (%) (Auto) 1.1, Reticulocyte Count 4.3H, Prothrombin Time 15.5H, Prothromb Time International Ratio 1.5H, Activated Partial Thromboplast Time 33, Sodium Level 139, Potassium Level 3.6, Chloride Level 106, Carbon Dioxide Level 26, Anion Gap 7, Blood Urea Nitrogen 8, Creatinine 0.7, Estimat Glomerular Filtration Rate > 60, Glucose Level 118H, Hemoglobin A1c 4.5, Uric Acid 1.0L, Calcium Level 7.0L, Phosphorus Level 1.0L, Magnesium Level 2.2, Iron Level 29L, Total Iron Binding Capacity 142L, Percent Iron Saturation 20, Unsaturated Iron Binding 113, Ferritin 135, Total Bilirubin 11.5H, Direct Bilirubin 10.0H, Gamma Glutamyl Transpeptidase 1954H, Aspartate Amino Transf ( AST/SGOT) 134H, Alanine Aminotransferase (ALT/SGPT) 33, Alkaline Phosphatase 442H, Total Protein 5.2L, Albumin 1.7L, Globulin 3.5, Albumin/Globulin Ratio 0.5L, Triglycerides Level 151H, Cholesterol Level 129, LDL Cholesterol 105H, HDL Cholesterol 7L, Cholesterol/HDL Ratio 18.4H, Vitamin B12 Level 1523H, Folate 14.2, Thyroid Stimulating Hormone (TSH) 2.099, Free Thyroxine 1.45 Height (Feet): 5 Height (Inches): 5.00 Weight (Pounds): 160 General Appearance: no apparent distress, lethargic, other - jaundiced Cardiovascular: tachycardia Respiratory/Chest: decreased breath sounds Abdomen: distended Leonard Bautista MD Dec 31, 2018 12:01
--- NOTE | 2018-12-31 15:39 | General Progress Note ---
Assessment/Plan Status: stable, progressing Assessment/Plan: Assessment (1) Acute alcoholic gastritis ICD Codes: K29.20 - Alcoholic gastritis without bleeding SNOMED: 7581227 Qualifiers: Qualified Codes: K29.20 - Alcoholic gastritis without bleeding (2) Elevated LFTs ICD Codes: R94.5 - Abnormal results of liver function studies SNOMED: 056570760, 095372191 (3) Alcoholic liver disease ICD Codes: K70.9 - Alcoholic liver disease, unspecified SNOMED: 25138664 (4) Esophagitis ICD Codes: K20.9 - Esophagitis, unspecified SNOMED: 11894735 (5) Acute encephalopathy ICD Codes: G93.40 - Encephalopathy, unspecified SNOMED: 28054966, 462265534 (6) Psychosis ICD Codes: F29 - Unspecified psychosis not due to a substance or known physiological condition SNOMED: 46358260 (7) Acute alcoholic intoxication ICD Codes: F10.929 - Alcohol use, unspecified with intoxication, unspecified SNOMED: 88681548 Status: unchanged Assessment/Plan imaging noted po as tolerated paracentesis if mod to large amounts of ascites anemia work up OB stool r/o GI bleed, possible endoscopy if positive to evaluate for EV monitor H&H, prn transfusions bowel regimen ppi ativan prn fu labs needs psych consult Subjective Allergies: Coded Allergies: No Known Allergies (Verified , 10/22/06) Subjective restless c/o abd pain Objective Last 24 Hour Vital Signs Date Time Temp Pulse Resp B/P (MAP) Pulse Ox O2 Delivery O2 Flow Rate FiO2 12/31/18 11:51 112 12/31/18 11:43 98.5 101 18 116/63 (80) 98 12/31/18 09:00 Room Air 12/31/18 08:00 98.5 105 18 88/60 (69) 98 12/31/18 07:50 106 12/31/18 04:00 105 12/31/18 04:00 97.7 105 18 102/78 (86) 98 12/31/18 00:00 107 12/31/18 00:00 97.7 107 18 100/82 (88) 97 12/30/18 21:00 Room Air 12/30/18 20:00 115 12/30/18 20:00 96.0 115 18 131/54 (79) 96 12/30/18 16:00 103 6/7/19 16:00 99.5 98 20 101/63 (76) 95 Intake and Output 12/30/18 12/31/18 19:00 07:00 # Bowel Movements 2 Laboratory Tests 12/30/18 21:50: Ammonia 134H 12/31/18 06:15: Ammonia 134H, White Blood Count 11.2H, Red Blood Count 2.68L, Hemoglobin 8.7L, Hematocrit 27.9L, Mean Corpuscular Volume 104H, Mean Corpuscular Hemoglobin 32.6H, Mean Corpuscular Hemoglobin Concent 31.2L, Red Cell Distribution Width 16.3H, Platelet Count 178#, Mean Platelet Volume 8.0, Neutrophils (%) (Auto) 77.6H, Lymphocytes (%) (Auto) 10.1L, Monocytes (%) (Auto) 6.5, Eosinophils (%) ( Auto) 4.8H, Basophils (%) (Auto) 1.1, Reticulocyte Count 4.3H, Prothrombin Time 15.5H, Prothromb Time International Ratio 1.5H, Activated Partial Thromboplast Time 33, Sodium Level 139, Potassium Level 3.6, Chloride Level 106, Carbon Dioxide Level 26, Anion Gap 7, Blood Urea Nitrogen 8, Creatinine 0.7, Estimat Glomerular Filtration Rate > 60, Glucose Level 118H, Hemoglobin A1c 4.5, Uric Acid 1.0L, Calcium Level 7.0L, Phosphorus Level 1.0L, Magnesium Level 2.2, Iron Level 29L, Total Iron Binding Capacity 142L, Percent Iron Saturation 20, Unsaturated Iron Binding 113, Ferritin 135, Total Bilirubin 11.5H, Direct Bilirubin 10.0H, Gamma Glutamyl Transpeptidase 1954H, Aspartate Amino Transf ( AST/SGOT) 134H, Alanine Aminotransferase (ALT/SGPT) 33, Alkaline Phosphatase 442H, Total Protein 5.2L, Albumin 1.7L, Globulin 3.5, Albumin/Globulin Ratio 0.5L, Triglycerides Level 151H, Cholesterol Level 129, LDL Cholesterol 105H, HDL Cholesterol 7L, Cholesterol/HDL Ratio 18.4H, Vitamin B12 Level 1523H, Folate 14.2, Thyroid Stimulating Hormone (TSH) 2.099, Free Thyroxine 1.45 Height (Feet): 5 Height (Inches): 5.00 Weight (Pounds): 160 Objective jaundiced NCAT supple CTA RRR abd soft, TTP, sl distended no edema non focal Ivana Thapa MD Dec 31, 2018 15:39
[2018-12-31] MEDS ORDERED: Lidocaine 1% Plain 30 ml INJ PRN (16:00)
[2018-12-31] MEDS ORDERED: Heparin1,000 units/500ml Premix(Conc:2 units/ml) IV PRN (16:00)
[2018-12-31 16:38] VITALS: BP 106/52
--- NOTE | 2018-12-31 16:54 | NUR ---
NURSE NOTES: unable to obtain iv after 3 attempts, another rn also unable to obtain, pt refused to have more iv attempts at this time, Dr Schneider made aware, received order for picc , jorge morales made aware. consent obtained via phone witnessed by carlyn
[2018-12-31] MEDS: D5 1/2NS w/KCl 40meq 1000ml 1,000 ML IV SCH (17:00)
--- NOTE | 2018-12-31 19:26 | NUR ---
NURSE NOTES: repoerted to id md dr [place] bedoya episode of elevated temp, reduced to 99.8 after tylenol, no new order given at this time.
--- NOTE | 2018-12-31 19:27 | NUR ---
NURSE NOTES: OBTAINED REPORT FROM HERRERA SOUTH. PT RESTING COMFORTABLY IN BED. NO SIGNS OF APPARENT DISTRESS.
--- NOTE | 2018-12-31 19:27 | NUR ---
HAND-OFF: Report given to MAUREEN SOUTH.
--- NOTE | 2018-12-31 19:30 | NUR ---
PER REPORT, PT IS A HARD STICK AND HAS NO IV ACCESS (MD AWARE). PT WILL RECEIVE PICC LINE. PLACEMENT OF PICC LINE PENDING. CONSENT HAS BEEN OBTAINED AND IN PT CHART.
[2018-12-31 20:00] VITALS: BP 101/59
[2018-12-31] MEDS ORDERED: LORazepam Inj 2mg/ml 1ml IV PRN (20:00)
[2018-12-31] MEDS: Dyna-Hex 2% Top Sol 2oz TOPIC SCH (20:00)
[2018-12-31] MEDS: chlordiazePOXIDE 25mg Cap ORAL SCH (20:20)
[2018-12-31] MEDS: metroNIDAZOLE 500mg tab ORAL SCH (22:45)
--- NOTE | 2018-12-31 23:48 | Neurology Progress Note ---
Interim History Interim History ROS Limited/Unobtainable: No Complaints: AMS Events: Ammonia remains elevated - unchanged Interim History This visit was performed on December 31, [address] Gold Dee. Review of Systems Neuro Review of Systems Remains weak but non focal/ confused at this time. All Systems: reviewed and negative except above Objective Physical Exam Last Vital Signs Date Time Temp Pulse Resp B/P (MAP) Pulse Ox O2 Delivery O2 Flow Rate FiO2 12/31/18 21:00 Room Air 12/31/18 20:00 97.2 115 18 101/59 (73) 97 Laboratory Tests Test 12/31/18 06:15 White Blood Count 11.2 K/UL (4.8-10.8) H Red Blood Count 2.68 M/UL (4.70-6.10) L Hemoglobin 8.7 G/DL (14.2-18.0) L Hematocrit 27.9 % (42.0-52.0) L Mean Corpuscular Volume 104 FL (80-99) H Mean Corpuscular Hemoglobin 32.6 PG (27.0-31.0) H Mean Corpuscular Hemoglobin Concent 31.2 G/DL (32.0-36.0) L Red Cell Distribution Width 16.3 % (11.6-14.8) H Platelet Count 178 K/UL (150-450) # Mean Platelet Volume 8.0 FL (6.5-10.1) Neutrophils (%) (Auto) 77.6 % (45.0-75.0) H Lymphocytes (%) (Auto) 10.1 % (20.0-45.0) L Monocytes (%) (Auto) 6.5 % (1.0-10.0) Eosinophils (%) (Auto) 4.8 % (0.0-3.0) H Basophils (%) (Auto) 1.1 % (0.0-2.0) Reticulocyte Count 4.3 % (0.5-2.0) H Prothrombin Time 15.5 SEC (9.30-11.50) H Prothromb Time International Ratio 1.5 (0.9-1.1) H Activated Partial Thromboplast Time 33 SEC (23-33) Sodium Level 139 MMOL/L (136-145) Potassium Level 3.6 MMOL/L (3.5-5.1) Chloride Level 106 MMOL/L (98-107) Carbon Dioxide Level 26 MMOL/L (21-32) Anion Gap 7 mmol/L (5-15) Blood Urea Nitrogen 8 mg/dL (7-18) Creatinine 0.7 MG/DL (0.55-1.30) Estimat Glomerular Filtration Rate > 60 mL/min (>60) Glucose Level 118 MG/DL (74-106) H Hemoglobin A1c 4.5 % (4.3-6.0) Uric Acid 1.0 MG/DL (2.6-7.2) L Calcium Level 7.0 MG/DL (8.5-10.1) L Phosphorus Level 1.0 MG/DL (2.5-4.9) L Magnesium Level 2.2 MG/DL (1.8-2.4) Iron Level 29 ug/dL (50-175) L Total Iron Binding Capacity 142 ug/dL (250-450) L Percent Iron Saturation 20 % (15-50) Unsaturated Iron Binding 113 ug/dL (112-346) Ferritin 135 NG/ML (8-388) Total Bilirubin 11.5 MG/DL (0.2-1.0) H Direct Bilirubin 10.0 MG/DL (0.0-0.3) H Gamma Glutamyl Transpeptidase 1954 U/L (5-85) H Aspartate Amino Transf (AST/SGOT) 134 U/L (15-37) H Alanine Aminotransferase (ALT/SGPT) 33 U/L (12-78) Alkaline Phosphatase 442 U/L (46-116) H Ammonia 134 umol/L (11-32) H Total Protein 5.2 G/DL (6.4-8.2) L Albumin 1.7 G/DL (3.4-5.0) L Globulin 3.5 g/dL Albumin/Globulin Ratio 0.5 (1.0-2.7) L Triglycerides Level 151 MG/DL (30-150) H Cholesterol Level 129 MG/DL (< 200) LDL Cholesterol 105 mg/dL (<100) H HDL Cholesterol 7 MG/DL (40-60) L Cholesterol/HDL Ratio 18.4 (3.3-4.4) H Vitamin B12 Level 1523 PG/ML (193-986) H Folate 14.2 NG/ML (8.6-58.9) Thyroid Stimulating Hormone (TSH) 2.099 uiU/mL (0.358-3.740) Free Thyroxine 1.45 NG/DL (0.76-1.46) General: well developed, other Head: normocophalic, other Neck: no rigidity EENT: other Neurologic Exam Mental Status: awake, other Speech: other Language: other Cranial Nerve II: other Cranial Nerves III, IV, : other Cranial Nerve V: other Cranial Nerve VII: no facial asymmetry, normal facial expressions Cranial Nerve VIII: normal hearing, no nystagmus Cranial Nerve IX: gag response Cranial Nerve X: other Cranial Nerve XI: SCM symmetric Motor System: other Sensory: other Coordination: other Gait: other - He remains intermittently alert, mainly lethargic with some tremulousness and non focal exam. He is moving all extremities but not ambulating. Objective Patient is confused to place, date, circumstances with intermittent episodes of agitation, apparently stood out of bed previously,. He remains non focal and weak throughout Impression/Recommendations Problems: (1) Acute upper GI bleed (2) Fecal impaction in rectum (3) Esophagitis (4) Alcoholic liver disease (5) Elevated LFTs (6) Acute alcoholic gastritis (7) Psychosis (8) Acute alcoholic intoxication (9) Acute encephalopathy Status: stable Recommendations Continue to track and trend Ammonia Replace / Replete lytes Neuro Obs Q 4hours Sitter as needed Frequent reorientation Continue lactulose Avoid unnecessary administration of Benzos, Opioids, and Anticholinergic drugs Consult Psych Continue CIWA protocols for Alcohol W/D and Ativan for score > 8 Continue to track / trend H/H, LFTs, Ammonia Patient may need NG feeding/ additional enteral feeding to rapidly improve nutritional status Anika Pettit N.P. Dec 31, 2018 23:48
[2019-01-01] VITALS: BP 113/70
[2019-01-01] MEDS: Zoysn 3.37gm in NS 100ML IVPB SCH ×3 (02:00→17:51)
[2019-01-01] MEDS: chlordiazePOXIDE 25mg Cap ORAL SCH ×4 (02:37→22:06)
[2019-01-01 04:00] VITALS: BP 119/79
[2019-01-01] MEDS: D5 1/2NS w/KCl 40meq 1000ml 1,000 ML IV SCH ×2 (05:36→19:40)
[2019-01-01] MEDS: metroNIDAZOLE 500mg tab ORAL SCH (05:55)
--- NOTE | 2019-01-01 07:05 | NUR ---
HAND-OFF: REPORT GIVEN TO HERRERA. PT RESTING IN BED FREE FROM APPARENT DISTRESS. FALL RISK PRECAUTIONS IN PLACE AND CALL LIGHT WITHIN REACH AT ALL TIMES.
[2019-01-01 07:19] LABS: BASOPHILS % (AUTO) 0.9 % (0.0-2.0); HEMATOCRIT 27.7 % (42.0-52.0); HEMOGLOBIN 8.6 G/DL (14.2-18.0); LYMPHOCYTES % (AUTO) 9.2 % (20.0-45.0); MEAN CORPUSCULAR VOLUME 105 FL (80-99); NEUTROPHILS % (AUTO) 79.9 % (45.0-75.0); PLATELET COUNT 162 K/UL (150-450); RED BLOOD COUNT 2.64 M/UL (4.70-6.10); RED CELL DISTRIBUTION WIDTH 16.7 % (11.6-14.8); WHITE BLOOD COUNT 11.6 K/UL (4.8-10.8)
[2019-01-01 07:46] LABS: INR 1.6 (0.9-1.1)
[2019-01-01 07:51] LABS: ALANINE AMINOTRANSFERASE 34 U/L (12-78); ALBUMIN 1.7 G/DL (3.4-5.0); ALBUMIN/GLOBULIN RATIO 0.5 (1.0-2.7); ALKALINE PHOSPHATASE 433 U/L (46-116); ANION GAP 8 mmol/L (5-15); ASPARTATE AMINO TRANSFERASE 146 U/L (15-37); BILIRUBIN,TOTAL 12.6 MG/DL (0.2-1.0); BLOOD UREA NITROGEN 10 mg/dL (7-18); CALCIUM 7.2 MG/DL (8.5-10.1); CARBON DIOXIDE 25 MMOL/L (21-32); CHLORIDE 108 MMOL/L (98-107); CREATININE 0.7 MG/DL (0.55-1.30); PHOSPHORUS 1.4 MG/DL (2.5-4.9); POTASSIUM 3.4 MMOL/L (3.5-5.1); SODIUM 141 MMOL/L (136-145)
[2019-01-01 07:56] LABS: BILIRUBIN,DIRECT 10.6 MG/DL (0.0-0.3)
[2019-01-01 08:00] VITALS: BP 100/68
[2019-01-01 08:17] LABS: AMMONIA 134 umol/L (11-32)
[2019-01-01] MEDS: Lactulose 20gm/30ml UDC ORAL SCH ×4 (08:35→22:06)
[2019-01-01] MEDS: Heparin 5000 units/ml inj SUBQ SCH ×2 (08:36→20:54)
--- NOTE | 2019-01-01 08:44 | NUR ---
NURSE NOTES: pt awake alert, no distress. no sob. call light within reach. bed in lowest position, locked
--- NOTE | 2019-01-01 09:24 | Cardiology Progress Note ---
Assessment/Plan Status: stable Assessment/Plan Assessment/Plan Problems: (1) Acute alcoholic gastritis (2) Elevated LFTs (3) Alcoholic liver disease (4) Esophagitis (6) Psychosis (7) Acute alcoholic intoxication (8) Cirrhosis PLAN: ERCP per GI IV fluids Multivitamin Continue telemetry TTE to evaluate for alochol cardiomyopathy Subjective Cardiovascular: Reports: no symptoms Respiratory: Reports: no symptoms Gastrointestinal/Abdominal: Reports: no symptoms Genitourinary: Reports: no symptoms Subjective Coverage for [place] No acute events, no chest pain, no shortness of breath, no fever Objective Last 24 Hour Vital Signs Date Time Temp Pulse Resp B/P (MAP) Pulse Ox O2 Delivery O2 Flow Rate FiO2 01/01/19 09:00 Room Air 01/01/19 08:00 99.0 111 18 100/68 (79) 97 01/01/19 04:00 111 01/01/19 04:00 97.7 116 18 119/79 (92) 97 01/01/19 00:00 97.2 114 18 113/70 (84) 98 01/01/19 00:00 107 12/31/18 21:00 Room Air 12/31/18 20:00 97.2 115 18 101/59 (73) 97 12/31/18 20:00 115 12/31/18 17:09 99.8 12/31/18 16:38 101.8 109 18 106/52 (70) 98 12/31/18 16:18 123 12/31/18 11:51 112 12/31/18 11:43 98.5 101 18 116/63 (80) 98 General Appearance: no apparent distress, alert EENT: PERRL/EOMI, normal ENT inspection, TMs normal, pharynx normal Neck: non-tender, normal alignment, supple, normal inspection, no JVD Rhythm: NSR Cardiovascular: normal peripheral pulses, normal rate, regular rhythm Respiratory/Chest: chest wall non-tender, lungs clear Abdomen: normal bowel sounds, non tender, soft Extremities: normal range of motion, non-tender, normal inspection, no calf tenderness, no swelling 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, no motor/sensory deficits Intake and Output 12/31/18 01/01/19 18:59 06:59 Intake Total 1080 ml Output Total 0 ml Balance 1080 ml 0 ml Intake Oral 1080 ml Output Emesis 0 ml # Bowel Movements 2 3 Laboratory Tests Test 01/01/19 04:45 White Blood Count 11.6 K/UL (4.8-10.8) H Red Blood Count 2.64 M/UL (4.70-6.10) L Hemoglobin 8.6 G/DL (14.2-18.0) L Hematocrit 27.7 % (42.0-52.0) L Mean Corpuscular Volume 105 FL (80-99) H Mean Corpuscular Hemoglobin 32.7 PG (27.0-31.0) H Mean Corpuscular Hemoglobin Concent 31.1 G/DL (32.0-36.0) L Red Cell Distribution Width 16.7 % (11.6-14.8) H Platelet Count 162 K/UL (150-450) Mean Platelet Volume 7.5 FL (6.5-10.1) Neutrophils (%) (Auto) 79.9 % (45.0-75.0) H Lymphocytes (%) (Auto) 9.2 % (20.0-45.0) L Monocytes (%) (Auto) 6.0 % (1.0-10.0) Eosinophils (%) (Auto) 4.0 % (0.0-3.0) H Basophils (%) (Auto) 0.9 % (0.0-2.0) Prothrombin Time 16.5 SEC (9.30-11.50) H Prothromb Time International Ratio 1.6 (0.9-1.1) H Activated Partial Thromboplast Time 35 SEC (23-33) H Sodium Level 141 MMOL/L (136-145) Potassium Level 3.4 MMOL/L (3.5-5.1) L Chloride Level 108 MMOL/L (98-107) H Carbon Dioxide Level 25 MMOL/L (21-32) Anion Gap 8 mmol/L (5-15) Blood Urea Nitrogen 10 mg/dL (7-18) Creatinine 0.7 MG/DL (0.55-1.30) Estimat Glomerular Filtration Rate > 60 mL/min (>60) Glucose Level 115 MG/DL (74-106) H Uric Acid 1.5 MG/DL (2.6-7.2) L Calcium Level 7.2 MG/DL (8.5-10.1) L Phosphorus Level 1.4 MG/DL (2.5-4.9) L Magnesium Level 1.9 MG/DL (1.8-2.4) Total Bilirubin 12.6 MG/DL (0.2-1.0) H Direct Bilirubin 10.6 MG/DL (0.0-0.3) H Aspartate Amino Transf (AST/SGOT) 146 U/L (15-37) H Alanine Aminotransferase (ALT/SGPT) 34 U/L (12-78) Alkaline Phosphatase 433 U/L (46-116) H Ammonia 134 umol/L (11-32) H C-Reactive Protein, Quantitative 10.4 mg/dL (0.00-0.90) H Pro-B-Type Natriuretic Peptide 131 pg/mL (0-125) H Total Protein 5.2 G/DL (6.4-8.2) L Albumin 1.7 G/DL (3.4-5.0) L Globulin 3.5 g/dL Albumin/Globulin Ratio 0.5 (1.0-2.7) L Cortisol AM Sample Pending Hepatitis A IgM Antibody Pending Hepatitis B Surface Antigen Pending Hepatitis B Core IgM Antibody Pending Hepatitis C Antibody Pending HIV (1&2) Antibody Rapid Negative (NEGATIVE) Microbiology Date/Time Source Procedure Growth Status 12/29/18 16:24 Nasal Nares MRSA Culture - Final NO METHICILLIN RESISTANT STAPH AUREUS... Complete 12/29/18 16:24 Rectum VRE Culture - Final NO VANCOMYCIN RESISTANT ENTEROCOCCUS ... Complete 12/29/18 10:50 Rectum - Final NO CARBAPENEM-RESISTANT ENTEROBACTERI... Complete Devon Bolivar MD Jan 01, 2019 09:24
--- NOTE | 2019-01-01 10:21 | General Progress Note ---
Assessment/Plan Status: stable Assessment/Plan: Assessment (1) Acute alcoholic gastritis ICD Codes: K29.20 - Alcoholic gastritis without bleeding SNOMED: 4640275 Qualifiers: Qualified Codes: K29.20 - Alcoholic gastritis without bleeding (2) Elevated LFTs ICD Codes: R94.5 - Abnormal results of liver function studies SNOMED: 251659436, 566149572 (3) Alcoholic liver disease ICD Codes: K70.9 - Alcoholic liver disease, unspecified SNOMED: 57547564 (4) Esophagitis ICD Codes: K20.9 - Esophagitis, unspecified SNOMED: 47278002 (5) Acute encephalopathy ICD Codes: G93.40 - Encephalopathy, unspecified SNOMED: 40517390, 807265259 (6) Psychosis ICD Codes: F29 - Unspecified psychosis not due to a substance or known physiological condition SNOMED: 19443859 (7) Acute alcoholic intoxication ICD Codes: F10.929 - Alcohol use, unspecified with intoxication, unspecified SNOMED: 59005852 Status: unchanged Assessment/Plan imaging noted po as tolerated paracentesis if mod to large amounts of ascites anemia work up OB stool r/o GI bleed, possible endoscopy if positive to evaluate for EV monitor H&H, prn transfusions bowel regimen ppi ativan prn fu labs needs psych consult Subjective Allergies: Coded Allergies: No Known Allergies (Verified , 10/22/06) Subjective more comfortable c/o dry throat Objective Last 24 Hour Vital Signs Date Time Temp Pulse Resp B/P (MAP) Pulse Ox O2 Delivery O2 Flow Rate FiO2 01/01/19 09:00 Room Air 01/01/19 08:10 103 01/01/19 08:00 99.0 111 18 100/68 (79) 97 01/01/19 04:00 111 01/01/19 04:00 97.7 116 18 119/79 (92) 97 01/01/19 00:00 97.2 114 18 113/70 (84) 98 01/01/19 00:00 107 12/31/18 21:00 Room Air 12/31/18 20:00 97.2 115 18 101/59 (73) 97 12/31/18 20:00 115 12/31/18 17:09 99.8 12/31/18 16:38 101.8 109 18 106/52 (70) 98 12/31/18 16:18 123 6/8/19 11:51 112 12/31/18 11:43 98.5 101 18 116/63 (80) 98 Intake and Output 12/31/18 01/01/19 19:00 07:00 Intake Total 1080 ml Output Total 0 ml Balance 1080 ml 0 ml Intake Oral 1080 ml Output Emesis 0 ml # Bowel Movements 2 3 Laboratory Tests 01/01/19 04:45: White Blood Count 11.6H, Red Blood Count 2.64L, Hemoglobin 8.6L, Hematocrit 27.7L, Mean Corpuscular Volume 105H, Mean Corpuscular Hemoglobin 32.7H, Mean Corpuscular Hemoglobin Concent 31.1L, Red Cell Distribution Width 16.7H, Platelet Count 162, Mean Platelet Volume 7.5, Neutrophils (%) (Auto) 79.9H, Lymphocytes (%) (Auto) 9.2L, Monocytes (%) (Auto) 6.0, Eosinophils (%) (Auto) 4.0H, Basophils (%) (Auto) 0.9, Prothrombin Time 16.5H, Prothromb Time International Ratio 1.6H, Activated Partial Thromboplast Time 35H, Sodium Level 141, Potassium Level 3.4L, Chloride Level 108H, Carbon Dioxide Level 25, Anion Gap 8, Blood Urea Nitrogen 10, Creatinine 0.7, Estimat Glomerular Filtration Rate > 60, Glucose Level 115H, Uric Acid 1.5L, Calcium Level 7.2L, Phosphorus Level 1.4L, Magnesium Level 1.9, Total Bilirubin 12.6H, Direct Bilirubin 10.6H, Aspartate Amino Transf (AST/SGOT) 146H, Alanine Aminotransferase (ALT/SGPT) 34, Alkaline Phosphatase 433H, Ammonia 134H, C-Reactive Protein, Quantitative 10.4H , Pro-B-Type Natriuretic Peptide 131H, Total Protein 5.2L, Albumin 1.7L, Globulin 3.5, Albumin/Globulin Ratio 0.5L, Cortisol AM Sample [Pending], Hepatitis A IgM Antibody [Pending], Hepatitis B Surface Antigen [Pending], Hepatitis B Core IgM Antibody [Pending], Hepatitis C Antibody [Pending], HIV (1& 2) Antibody Rapid Negative Height (Feet): 5 Height (Inches): 5.00 Weight (Pounds): 160 Objective jaundiced NCAT supple CTA RRR abd soft, TTP, sl distended no edema non focal Ivana Thapa MD Jan 01, 2019 10:21
[2019-01-01 12:00] VITALS: BP 128/60
[2019-01-01] MEDS ORDERED: Potassium Phosphate 30 MM in NS 275 ML IV ONE (13:00)
--- NOTE | 2019-01-01 13:26 | NUR ---
P.T Not: P.T evaluation completed and treatment initiated. Please refer to P.T evaluation for current functional status. Pt is alert, oriented to self and place but not to time and situation. Pt is confused however follows simple commands. Pt appeared generally weak and sluggish affecting overall mobility performance. Pt presented poor initiation of mobility tasks and currently require verbal/tactile cues and MOD A X 1 to initiate and complete bed mobility, transfers and gait activities using the FWW. Skilled P.T service is warranted to improve his strength, balance endurance to increased his mobility independence and safety during stay. Recommend SNF for short term rehab at [place]. Thank you for this referral.
--- NOTE | 2019-01-01 13:54 | Nephrology Progress Note ---
Assessment/Plan Problem List: (1) Alcoholic liver disease (2) Anemia (3) Electrolyte disorder Assessment Acute Alcoholic Gastritis / Encephalopathy - Intoxication Alcoholic Hepatitis Anemia Hypokalemia Psych disease Plan doesnt have IV access Due Picc in am K and Mag and Phos supplement Monitor lytes / Lfts per orders Subjective ROS Limited/Unobtainable: No Constitutional: Reports: malaise Objective Objective Last 24 Hour Vital Signs Date Time Temp Pulse Resp B/P (MAP) Pulse Ox O2 Delivery O2 Flow Rate FiO2 01/01/19 11:58 116 01/01/19 09:00 Room Air 01/01/19 08:10 103 01/01/19 08:00 99.0 111 18 100/68 (79) 97 01/01/19 04:00 111 01/01/19 04:00 97.7 116 18 119/79 (92) 97 01/01/19 00:00 97.2 114 18 113/70 (84) 98 01/01/19 00:00 107 12/31/18 21:00 Room Air 12/31/18 20:00 97.2 115 18 101/59 (73) 97 12/31/18 20:00 115 12/31/18 17:09 99.8 12/31/18 16:38 101.8 109 18 106/52 (70) 98 12/31/18 16:18 123 Intake and Output 12/31/18 01/01/19 19:00 07:00 Intake Total 1080 ml Output Total 0 ml Balance 1080 ml 0 ml Intake Oral 1080 ml Output Emesis 0 ml # Bowel Movements 2 3 Laboratory Tests 01/01/19 04:45: White Blood Count 11.6H, Red Blood Count 2.64L, Hemoglobin 8.6L, Hematocrit 27.7L, Mean Corpuscular Volume 105H, Mean Corpuscular Hemoglobin 32.7H, Mean Corpuscular Hemoglobin Concent 31.1L, Red Cell Distribution Width 16.7H, Platelet Count 162, Mean Platelet Volume 7.5, Neutrophils (%) (Auto) 79.9H, Lymphocytes (%) (Auto) 9.2L, Monocytes (%) (Auto) 6.0, Eosinophils (%) (Auto) 4.0H, Basophils (%) (Auto) 0.9, Prothrombin Time 16.5H, Prothromb Time International Ratio 1.6H, Activated Partial Thromboplast Time 35H, Sodium Level 141, Potassium Level 3.4L, Chloride Level 108H, Carbon Dioxide Level 25, Anion Gap 8, Blood Urea Nitrogen 10, Creatinine 0.7, Estimat Glomerular Filtration Rate > 60, Glucose Level 115H, Uric Acid 1.5L, Calcium Level 7.2L, Phosphorus Level 1.4L, Magnesium Level 1.9, Total Bilirubin 12.6H, Direct Bilirubin 10.6H, Aspartate Amino Transf (AST/SGOT) 146H, Alanine Aminotransferase (ALT/SGPT) 34, Alkaline Phosphatase 433H, Ammonia 134H, C-Reactive Protein, Quantitative 10.4H , Pro-B-Type Natriuretic Peptide 131H, Total Protein 5.2L, Albumin 1.7L, Globulin 3.5, Albumin/Globulin Ratio 0.5L, Cortisol AM Sample [Pending], Hepatitis A IgM Antibody [Pending], Hepatitis B Surface Antigen [Pending], Hepatitis B Core IgM Antibody [Pending], Hepatitis C Antibody [Pending], HIV (1& 2) Antibody Rapid Negative Height (Feet): 5 Height (Inches): 5.00 Weight (Pounds): 160 General Appearance: no apparent distress, other - Jaundiced Cardiovascular: tachycardia Respiratory/Chest: decreased breath sounds Abdomen: distended Leonard Bautista MD Jan 01, 2019 13:54
--- NOTE | 2019-01-01 14:22 | Pulmonology Progress Note ---
Assessment/Plan Problems: (1) Acute alcoholic intoxication (2) Acute encephalopathy (3) Acute upper GI bleed (4) Coagulopathy (5) Psychosis Assessment/Plan still tachy MRCP noted, not helpful ERCP planned keep in teli as long as tachycardic symptomatic treatment lactulose f/u Ammonia level. Subjective ROS Limited/Unobtainable: No Allergies: Coded Allergies: No Known Allergies (Verified , 10/22/06) Objective Last 24 Hour Vital Signs Date Time Temp Pulse Resp B/P (MAP) Pulse Ox O2 Delivery O2 Flow Rate FiO2 01/01/19 12:00 99.0 111 18 128/60 (82) 97 01/01/19 11:58 116 01/01/19 09:00 Room Air 01/01/19 08:10 103 01/01/19 08:00 99.0 111 18 100/68 (79) 97 01/01/19 04:00 111 01/01/19 04:00 97.7 116 18 119/79 (92) 97 01/01/19 00:00 97.2 114 18 113/70 (84) 98 01/01/19 00:00 107 12/31/18 21:00 Room Air 12/31/18 20:00 97.2 115 18 101/59 (73) 97 12/31/18 20:00 115 12/31/18 17:09 99.8 12/31/18 16:38 101.8 109 18 106/52 (70) 98 12/31/18 16:18 123 Intake and Output 12/31/18 01/01/19 19:00 07:00 Intake Total 1080 ml Output Total 0 ml Balance 1080 ml 0 ml Intake Oral 1080 ml Output Emesis 0 ml # Bowel Movements 2 3 General Appearance: cachetic HEENT: normocephalic, atraumatic Respiratory/Chest: chest wall non-tender, lungs clear Cardiovascular: normal peripheral pulses, normal rate Abdomen: normal bowel sounds, soft, non tender Genitourinary: normal external genitalia Extremities: no clubbing Neurologic/Psychiatric: 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 Complete 12/29/18 16:24 Rectum VRE Culture - Final NO VANCOMYCIN RESISTANT ENTEROCOCCUS ... Complete Laboratory Tests 01/01/19 04:45: White Blood Count 11.6H, Red Blood Count 2.64L, Hemoglobin 8.6L, Hematocrit 27.7L, Mean Corpuscular Volume 105H, Mean Corpuscular Hemoglobin 32.7H, Mean Corpuscular Hemoglobin Concent 31.1L, Red Cell Distribution Width 16.7H, Platelet Count 162, Mean Platelet Volume 7.5, Neutrophils (%) (Auto) 79.9H, Lymphocytes (%) (Auto) 9.2L, Monocytes (%) (Auto) 6.0, Eosinophils (%) (Auto) 4.0H, Basophils (%) (Auto) 0.9, Prothrombin Time 16.5H, Prothromb Time International Ratio 1.6H, Activated Partial Thromboplast Time 35H, Sodium Level 141, Potassium Level 3.4L, Chloride Level 108H, Carbon Dioxide Level 25, Anion Gap 8, Blood Urea Nitrogen 10, Creatinine 0.7, Estimat Glomerular Filtration Rate > 60, Glucose Level 115H, Uric Acid 1.5L, Calcium Level 7.2L, Phosphorus Level 1.4L, Magnesium Level 1.9, Total Bilirubin 12.6H, Direct Bilirubin 10.6H, Aspartate Amino Transf (AST/SGOT) 146H, Alanine Aminotransferase (ALT/SGPT) 34, Alkaline Phosphatase 433H, Ammonia 134H, C-Reactive Protein, Quantitative 10.4H , Pro-B-Type Natriuretic Peptide 131H, Total Protein 5.2L, Albumin 1.7L, Globulin 3.5, Albumin/Globulin Ratio 0.5L, Cortisol AM Sample [Pending], Hepatitis A IgM Antibody [Pending], Hepatitis B Surface Antigen [Pending], Hepatitis B Core IgM Antibody [Pending], Hepatitis C Antibody [Pending], HIV (1& 2) Antibody Rapid Negative Current Medications Medications (Trade) Dose Ordered Sig/Clyde Route PRN Reason Start Time Stop Time Status Last Admin Dose Admin Acetaminophen (Tylenol) 650 mg Q4H PRN ORAL fever 12/30/18 04:30 01/28/19 16:29 12/31/18 16:39 Chlordiazepoxide (Librium) 25 mg Q6H ORAL 12/31/18 20:00 01/06/19 01:59 01/01/19 08:34 Chlorhexidine Gluconate (Sharmila-Hex 2%) 1 applic DAILY@1999 TOPIC 12/31/18 20:00 01/30/19 19:59 Dextrose (Dextrose 50%) 25 ml Q30M PRN IV Hypoglycemia 12/30/18 01:00 01/28/19 16:29 Dextrose (Dextrose 50%) 50 ml Q30M PRN IV Hypoglycemia 12/30/18 01:00 01/28/19 16:29 Dextrose/ Electrolytes 1,000 ml @ 75 mls/hr [id number] IV 12/31/18 17:00 01/30/19 16:59 Folic Acid (Folate) 3 mg DAILY ORAL 01/01/19 09:00 01/31/19 08:59 01/01/19 08:35 Heparin Sodium (Porcine) (Heparin 5000 units/ml) 5,000 units EVERY 12 HOURS SUBQ 12/30/18 09:00 01/28/19 20:59 01/01/19 08:36 Heparin Sodium/ Sodium Chloride (Heparin 1000 units/500ml Premix) 1,000 unit PRN PRN IV PICC PLACEMENT 12/31/18 16:00 01/03/19 15:59 Iopamidol (Isovue-300 100ml) 100 ml NOW PRN INJ Radiology Procedure 12/30/18 13:45 01/02/19 13:44 Lactulose (Cephulac) 30 gm FOUR TIMES A DAY ORAL 12/31/18 09:00 01/30/19 08:59 01/01/19 12:55 Levofloxacin (Levaquin) 750 mg DAILY ORAL 01/01/19 09:00 01/08/19 08:59 01/01/19 08:35 Lidocaine HCl (Xylocaine 1% 30ml) 30 ml PRN PRN INJ PICC PLACEMENT 12/31/18 16:00 01/03/19 15:59 Lorazepam (Ativan 2mg/ml 1ml) 2 mg Q1H PRN IV SEIZURES 12/30/18 11:42 01/06/19 11:41 Lorazepam (Ativan 2mg/ml 1ml) 2 mg Q6H PRN IV Agitation 12/31/18 20:00 01/06/19 19:59 01/01/19 11:02 Metronidazole (Flagyl) 250 mg Q8HR ORAL 01/01/19 14:00 01/07/19 21:59 Morphine Sulfate (Morphine Sulfate) 1 mg Q4H PRN IVP For Pain 12/30/18 04:30 01/05/19 16:29 12/30/18 07:58 Ondansetron HCl (Zofran) 4 mg Q6H PRN IVP Nausea & Vomiting 12/30/18 04:30 01/28/19 16:29 Pantoprazole (Protonix) 40 mg BID ORAL 12/30/18 09:00 01/28/19 17:59 01/01/19 08:35 Phosphorus (Phospha 250 Neutral) 500 mg THREE TIMES A DAY ORAL 01/01/19 18:00 01/31/19 17:59 Piperacillin Sod/ Tazobactam Sod 3.375 gm/Sodium Chloride 110 ml @ 27.5 mls/hr Q8H IVPB 12/30/18 10:00 01/06/19 09:59 12/31/18 10:18 Polyethylene Glycol (Miralax) 17 gm HSPRN PRN ORAL Constipation 12/30/18 16:30 01/28/19 16:29 Potassium Phosphate 30 mm/ Sodium Chloride 285 ml @ 47.5 mls/hr ONCE ONCE IV 01/01/19 13:00 01/01/19 18:59 Zolpidem Tartrate (Ambien) 5 mg HSPRN PRN ORAL Insomnia 12/30/18 02:00 01/05/19 01:59 12/31/18 22:45 Marion Schneider MD Jan 01, 2019 14:22
[2019-01-01] MEDS: metroNIDAZOLE 250mg tab ORAL SCH ×2 (14:25→22:06)
--- NOTE | 2019-01-01 15:51 | NUR ---
NURSE NOTES: reoprted to Dr Thapa pt having lbm x3(hold instructions for lactulose indicated to hold for lbm ) per md continue to give , diarrhea is expected for pt condition.
[2019-01-01 15:58] VITALS: BP 117/70
[2019-01-01] MEDS: Phospha 250 Neutral tab ORAL SCH (17:19)
--- NOTE | 2019-01-01 18:10 | General Progress Note ---
Assessment/Plan Problem List: (1) Abdominal pain ICD Codes: R10.9 - Unspecified abdominal pain SNOMED: 04743535 (2) Anemia ICD Codes: D64.9 - Anemia, unspecified SNOMED: 410251190 (3) Alcoholic liver disease ICD Codes: K70.9 - Alcoholic liver disease, unspecified SNOMED: 80167335 (4) Acute alcoholic gastritis ICD Codes: K29.20 - Alcoholic gastritis without bleeding SNOMED: 3322664 Qualifiers: Qualified Codes: K29.20 - Alcoholic gastritis without bleeding Status: stable, progressing Assessment/Plan: detox gi f/u cbc bmp dc plan if clear Subjective Constitutional: Reports: weakness Allergies: Coded Allergies: No Known Allergies (Verified , 10/22/06) All Systems: reviewed and negative except above Subjective awake calm eating Objective Last 24 Hour Vital Signs Date Time Temp Pulse Resp B/P (MAP) Pulse Ox O2 Delivery O2 Flow Rate FiO2 01/01/19 15:58 99.7 111 18 117/70 (86) 97 01/01/19 15:34 114 01/01/19 12:00 99.0 111 18 128/60 (82) 97 01/01/19 11:58 116 01/01/19 09:00 Room Air 01/01/19 08:10 103 01/01/19 08:00 99.0 111 18 100/68 (79) 97 01/01/19 04:00 111 01/01/19 04:00 97.7 116 18 119/79 (92) 97 01/01/19 00:00 97.2 114 18 113/70 (84) 98 01/01/19 00:00 107 12/31/18 21:00 Room Air 12/31/18 20:00 97.2 115 18 101/59 (73) 97 12/31/18 20:00 115 Intake and Output 12/31/18 01/01/19 19:00 07:00 Intake Total 1080 ml Output Total 0 ml Balance 1080 ml 0 ml Intake Oral 1080 ml Output Emesis 0 ml # Bowel Movements 2 3 Laboratory Tests 01/01/19 04:45: White Blood Count 11.6H, Red Blood Count 2.64L, Hemoglobin 8.6L, Hematocrit 27.7L, Mean Corpuscular Volume 105H, Mean Corpuscular Hemoglobin 32.7H, Mean Corpuscular Hemoglobin Concent 31.1L, Red Cell Distribution Width 16.7H, Platelet Count 162, Mean Platelet Volume 7.5, Neutrophils (%) (Auto) 79.9H, Lymphocytes (%) (Auto) 9.2L, Monocytes (%) (Auto) 6.0, Eosinophils (%) (Auto) 4.0H, Basophils (%) (Auto) 0.9, Prothrombin Time 16.5H, Prothromb Time International Ratio 1.6H, Activated Partial Thromboplast Time 35H, Sodium Level 141, Potassium Level 3.4L, Chloride Level 108H, Carbon Dioxide Level 25, Anion Gap 8, Blood Urea Nitrogen 10, Creatinine 0.7, Estimat Glomerular Filtration Rate > 60, Glucose Level 115H, Uric Acid 1.5L, Calcium Level 7.2L, Phosphorus Level 1.4L, Magnesium Level 1.9, Total Bilirubin 12.6H, Direct Bilirubin 10.6H, Aspartate Amino Transf (AST/SGOT) 146H, Alanine Aminotransferase (ALT/SGPT) 34, Alkaline Phosphatase 433H, Ammonia 134H, C-Reactive Protein, Quantitative 10.4H , Pro-B-Type Natriuretic Peptide 131H, Total Protein 5.2L, Albumin 1.7L, Globulin 3.5, Albumin/Globulin Ratio 0.5L, Cortisol AM Sample [Pending], Hepatitis A IgM Antibody [Pending], Hepatitis B Surface Antigen [Pending], Hepatitis B Core IgM Antibody [Pending], Hepatitis C Antibody [Pending], HIV (1& 2) Antibody Rapid Negative Height (Feet): 5 Height (Inches): 5.00 Weight (Pounds): 160 General Appearance: lethargic EENT: normal ENT inspection Neck: normal alignment Cardiovascular: normal peripheral pulses, normal rate, regular rhythm Respiratory/Chest: chest wall non-tender, lungs clear, normal breath sounds Abdomen: normal bowel sounds, non tender, soft, distended Extremities: normal inspection Edema: no edema noted Arm (L), no edema noted Arm (R), no edema noted Leg (L), no edema noted Leg (R), no edema noted Pedal (L), no edema noted Pedal (R), no edema noted Generalized Neurologic: responsive, motor weakness Skin: normal pigmentation, warm/dry Corwin Martinez DO Jan 01, 2019 18:10
--- NOTE | 2019-01-01 19:12 | NUR ---
HAND-OFF: Report given to JOSH BRANNON.
--- NOTE | 2019-01-01 19:30 | NUR ---
NURSE NOTES: Report received from Elda Holman RN. Pt is resting in bed in stable condition. Pt is awake, alert, and oriented x1 to name with noted confusion. Pt is on room air and breathing is even and unlabored. No acute distress noted. No IV site, care team is aware. Pt to have PICC line placed in the AM. Fall precautions in place. Bed is placed in lowest position with brake engaged, side rails up x3, and bed alarm on. Call light and side table are within reach. Pt kept clean and dry. Skin is intact. Will continue to monitor.
[2019-01-01 20:00] VITALS: BP 93/57
[2019-01-01] MEDS: Dyna-Hex 2% Top Sol 2oz TOPIC SCH (20:00)
[2019-01-02] VITALS: BP 101/58
[2019-01-02] MEDS: Zoysn 3.37gm in NS 100ML IVPB SCH ×4 (02:00→23:06)
[2019-01-02] MEDS: chlordiazePOXIDE 25mg Cap ORAL SCH ×4 (02:00→20:47)
[2019-01-02 04:00] VITALS: BP 95/64
[2019-01-02] MEDS: metroNIDAZOLE 250mg tab ORAL SCH ×3 (05:51→23:05)
[2019-01-02] MEDS ORDERED: NS 275ml ONE (06:20)
[2019-01-02] MEDS ORDERED: Tubing IV Secondary IV ONE (06:20)
--- NOTE | 2019-01-02 07:19 | NUR ---
HAND-OFF: Report given to Rivera Hines RN. Pt is resting in bed in stable condition. No acute distress noted. Endorsed plan of care.
--- NOTE | 2019-01-02 07:34 | NUR ---
NURSE NOTES: Received report from BRANNON Dodson. Pt is lying comfortably in semi-fowlers. No signs of distress noted. A+Ox1, denies pain/SOB. Pt has no IV site. MD aware. PICC insertion today. Respirations are even and unlabored on room air. Bed is at lowest position, brakes engaged, siderails x2, bed alarm on, and call light within reach. Pt is in stable condition at this time; will continue to monitor.
[2019-01-02 08:00] VITALS: BP 90/55
[2019-01-02] MEDS: Lactulose 20gm/30ml UDC ORAL SCH ×4 (08:16→18:17)
[2019-01-02] MEDS: Phospha 250 Neutral tab ORAL SCH ×3 (08:16→18:16)
[2019-01-02] MEDS: Heparin 5000 units/ml inj SUBQ SCH ×2 (08:18→20:49)
[2019-01-02] MEDS: D5 1/2NS w/KCl 40meq 1000ml 1,000 ML IV SCH ×2 (08:26→15:23)
--- NOTE | 2019-01-02 08:34 | General Progress Note ---
Assessment/Plan Problem List: (1) Abdominal pain ICD Codes: R10.9 - Unspecified abdominal pain SNOMED: 06023982 (2) Anemia ICD Codes: D64.9 - Anemia, unspecified SNOMED: 716060116 (3) Alcoholic liver disease ICD Codes: K70.9 - Alcoholic liver disease, unspecified SNOMED: 12178646 (4) Acute alcoholic gastritis ICD Codes: K29.20 - Alcoholic gastritis without bleeding SNOMED: 7289248 Qualifiers: Qualified Codes: K29.20 - Alcoholic gastritis without bleeding Status: stable, progressing Assessment/Plan: detox gi f/u cbc bmp dc plan if clear Subjective Constitutional: Reports: weakness Allergies: Coded Allergies: No Known Allergies (Verified , 10/22/06) All Systems: reviewed and negative except above Subjective awake calm eating Objective Last 24 Hour Vital Signs Date Time Temp Pulse Resp B/P (MAP) Pulse Ox O2 Delivery O2 Flow Rate FiO2 01/02/19 04:00 114 01/02/19 04:00 96.5 116 20 95/64 (74) 98 01/02/19 00:00 114 01/02/19 00:00 97.7 118 22 101/58 (72) 95 01/01/19 21:00 Room Air 01/01/19 20:00 96.9 117 18 93/57 (69) 97 01/01/19 20:00 118 01/01/19 15:58 99.7 111 18 117/70 (86) 97 01/01/19 15:34 114 01/01/19 12:00 99.0 111 18 128/60 (82) 97 01/01/19 11:58 116 01/01/19 09:00 Room Air Intake and Output 01/01/19 01/02/19 18:59 06:59 Intake Total 840 ml 240 ml Balance 840 ml 240 ml Intake Oral 840 ml 240 ml # Voids 2 1 # Bowel Movements 3 Height (Feet): 5 Height (Inches): 5.00 Weight (Pounds): 160 General Appearance: lethargic EENT: normal ENT inspection Neck: normal alignment Cardiovascular: normal peripheral pulses, normal rate, regular rhythm Respiratory/Chest: chest wall non-tender, lungs clear, normal breath sounds Abdomen: normal bowel sounds, non tender, soft Extremities: normal inspection Edema: no edema noted Arm (L), no edema noted Arm (R), no edema noted Leg (L), no edema noted Leg (R), no edema noted Pedal (L), no edema noted Pedal (R), no edema noted Generalized Neurologic: motor weakness Skin: normal pigmentation, warm/dry Corwin Martinez DO Jan 02, 2019 08:34
[2019-01-02 09:07] LABS: BASOPHILS % (AUTO) 1.3 % (0.0-2.0); EOSINOPHILS % (AUTO) 3.2 % (0.0-3.0); HEMATOCRIT 28.6 % (42.0-52.0); LYMPHOCYTES % (AUTO) 11.9 % (20.0-45.0); MEAN CORPUSCULAR VOLUME 104 FL (80-99); MONOCYTES % (AUTO) 8.2 % (1.0-10.0); NEUTROPHILS % (AUTO) 75.3 % (45.0-75.0); PLATELET COUNT 191 K/UL (150-450); RED BLOOD COUNT 2.75 M/UL (4.70-6.10); RED CELL DISTRIBUTION WIDTH 16.9 % (11.6-14.8); WHITE BLOOD COUNT 11.5 K/UL (4.8-10.8)
--- NOTE | 2019-01-02 09:15 | GI Progress Note ---
Assessment/Plan Problems: (1) Acute alcoholic gastritis ICD Codes: K29.20 - Alcoholic gastritis without bleeding SNOMED: 5827342 Qualifiers: Qualified Codes: K29.20 - Alcoholic gastritis without bleeding (2) Elevated LFTs ICD Codes: R94.5 - Abnormal results of liver function studies SNOMED: 554771389, 941853755 (3) Alcoholic liver disease ICD Codes: K70.9 - Alcoholic liver disease, unspecified SNOMED: 38831773 (4) Esophagitis ICD Codes: K20.9 - Esophagitis, unspecified SNOMED: 19265309 (5) Acute encephalopathy ICD Codes: G93.40 - Encephalopathy, unspecified SNOMED: 42518711, 904612630 (6) Psychosis ICD Codes: F29 - Unspecified psychosis not due to a substance or known physiological condition SNOMED: 15637597 (7) Acute alcoholic intoxication ICD Codes: F10.929 - Alcohol use, unspecified with intoxication, unspecified SNOMED: 21979583 Status: unchanged Status Narrative Discussed with Dr. Rich. Assessment/Plan imaging noted, cirrhosis rising bili US with doppler r/o Budd-Chiari Syndrome paracentesis if mod to large amounts of ascites lactulose + xifaxan OB stool r/o GI bleed, possible endoscopy if positive to evaluate for EV, stable H&H. monitor H&H, prn transfusions bowel regimen ppi ativan prn fu labs needs psych consult The patient was seen and examined at bedside and all new and available data was reviewed in the patients chart. I agree with the above findings, impression and plan. (Patient seen earlier today. Signature stamp does not reflect patient encounter time.). - Jarod Rich MD Subjective Gastrointestinal/Abdominal: Reports: no symptoms Objective Last 24 Hour Vital Signs Date Time Temp Pulse Resp B/P (MAP) Pulse Ox O2 Delivery O2 Flow Rate FiO2 01/02/19 04:00 114 01/02/19 04:00 96.5 116 20 95/64 (74) 98 01/02/19 00:00 114 01/02/19 00:00 97.7 118 22 101/58 (72) 95 01/01/19 21:00 Room Air 01/01/19 20:00 96.9 117 18 93/57 (69) 97 01/01/19 20:00 118 01/01/19 15:58 99.7 111 18 117/70 (86) 97 01/01/19 15:34 114 01/01/19 12:00 99.0 111 18 128/60 (82) 97 01/01/19 11:58 116 Intake and Output 01/01/19 01/02/19 18:59 06:59 Intake Total 840 ml 240 ml Balance 840 ml 240 ml Intake Oral 840 ml 240 ml # Voids 2 1 # Bowel Movements 3 Laboratory Tests Test 01/02/19 07:49 Sodium Level Pending Potassium Level Pending Chloride Level Pending Carbon Dioxide Level Pending Blood Urea Nitrogen Pending Creatinine Pending Estimat Glomerular Filtration Rate Pending Glucose Level Pending Calcium Level Pending Total Bilirubin Pending Aspartate Amino Transf (AST/SGOT) Pending Alanine Aminotransferase (ALT/SGPT) Pending Alkaline Phosphatase Pending Ammonia Pending Total Protein Pending Albumin Pending Globulin Pending Height (Feet): 5 Height (Inches): 5.00 Weight (Pounds): 160 General Appearance: WD/WN, no apparent distress, alert Cardiovascular: normal rate Respiratory/Chest: normal breath sounds, no respiratory distress Abdominal Exam: normal bowel sounds, non tender, soft Extremities: normal range of motion, non-tender Luisana Craft NP Jan 02, 2019 09:15
[2019-01-02 09:21] LABS: AMMONIA 74 umol/L (11-32)
[2019-01-02 09:29] LABS: INR 1.6 (0.9-1.1)
[2019-01-02 09:33] LABS: ALANINE AMINOTRANSFERASE 31 U/L (12-78); ALBUMIN 1.7 G/DL (3.4-5.0); ALBUMIN/GLOBULIN RATIO 0.5 (1.0-2.7); ALKALINE PHOSPHATASE 416 U/L (46-116); ANION GAP 10 mmol/L (5-15); ASPARTATE AMINO TRANSFERASE 126 U/L (15-37); BILIRUBIN,TOTAL 14.1 MG/DL (0.2-1.0); BLOOD UREA NITROGEN 12 mg/dL (7-18); CALCIUM 7.5 MG/DL (8.5-10.1); CARBON DIOXIDE 24 MMOL/L (21-32); CHLORIDE 107 MMOL/L (98-107); CREATININE 0.8 MG/DL (0.55-1.30); POTASSIUM 3.7 MMOL/L (3.5-5.1); SODIUM 141 MMOL/L (136-145)
[2019-01-02 09:36] LABS: BILIRUBIN,DIRECT 12.3 MG/DL (0.0-0.3)
[2019-01-02] MEDS ORDERED: Heparin1,000 units/500ml Premix(Conc:2 units/ml) IV PRN (09:45)
[2019-01-02] MEDS ORDERED: Lidocaine 1% Plain 30 ml INJ PRN (09:45)
--- NOTE | 2019-01-02 11:01 | Pulmonology Progress Note ---
Assessment/Plan Problems: (1) End stage liver disease (2) Acute upper GI bleed (3) Acute alcoholic intoxication (4) Coagulopathy (5) Psychosis (6) Acute encephalopathy (7) Alcoholic liver disease Assessment/Plan still tachy MRCP noted, not helpful keep in teli as long as tachycardic symptomatic treatment lactulose f/u Ammonia level. consider comfort care and DNR Subjective ROS Limited/Unobtainable: No Interval Events: feels anxious Constitutional: Reports: no symptoms Allergies: Coded Allergies: No Known Allergies (Verified , 10/22/06) Objective Last 24 Hour Vital Signs Date Time Temp Pulse Resp B/P (MAP) Pulse Ox O2 Delivery O2 Flow Rate FiO2 01/02/19 08:00 97.2 108 20 90/55 (67) 95 01/02/19 08:00 104 01/02/19 04:00 114 01/02/19 04:00 96.5 116 20 95/64 (74) 98 01/02/19 00:00 114 01/02/19 00:00 97.7 118 22 101/58 (72) 95 01/01/19 21:00 Room Air 01/01/19 20:00 96.9 117 18 93/57 (69) 97 01/01/19 20:00 118 01/01/19 15:58 99.7 111 18 117/70 (86) 97 01/01/19 15:34 114 01/01/19 12:00 99.0 111 18 128/60 (82) 97 01/01/19 11:58 116 Intake and Output 01/01/19 01/02/19 18:59 06:59 Intake Total 840 ml 240 ml Balance 840 ml 240 ml Intake Oral 840 ml 240 ml # Voids 2 1 # Bowel Movements 3 General Appearance: cachetic HEENT: normocephalic, other - icteric Respiratory/Chest: chest wall non-tender, lungs clear Cardiovascular: normal rate Abdomen: normal bowel sounds, soft, non tender Genitourinary: normal external genitalia Extremities: no cyanosis Neurologic/Psychiatric: clinic specialist II-XII grossly normal Microbiology Date/Time Source Procedure Growth Status 12/31/18 10:45 Blood Blood Culture - Preliminary NO GROWTH AFTER 24 HOURS Resulted 12/31/18 10:30 Blood Blood Culture - Preliminary NO GROWTH AFTER 24 HOURS Resulted Laboratory Tests 01/02/19 07:49: Sodium Level 141, Potassium Level 3.7, Chloride Level 107, Carbon Dioxide Level 24, Anion Gap 10, Blood Urea Nitrogen 12, Creatinine 0.8, Estimat Glomerular Filtration Rate > 60, Glucose Level 119H, Calcium Level 7.5L, Total Bilirubin 14.1H, Direct Bilirubin 12.3H, Aspartate Amino Transf (AST/SGOT) 126H, Alanine Aminotransferase (ALT/SGPT) 31, Alkaline Phosphatase 416H, Ammonia 74H, Total Protein 5.3L, Albumin 1.7L, Globulin 3.6, Albumin/Globulin Ratio 0.5L 01/02/19 08:06: White Blood Count 11.5H, Red Blood Count 2.75L, Hemoglobin 9.0L, Hematocrit 28.6L, Mean Corpuscular Volume 104H, Mean Corpuscular Hemoglobin 32.8H, Mean Corpuscular Hemoglobin Concent 31.6L, Red Cell Distribution Width 16.9H, Platelet Count 191, Mean Platelet Volume 7.5, Neutrophils (%) (Auto) 75.3H, Lymphocytes (%) (Auto) 11.9L, Monocytes (%) (Auto) 8.2, Eosinophils (%) (Auto) 3.2H, Basophils (%) (Auto) 1.3, Prothrombin Time 16.6H, Prothromb Time International Ratio 1.6H Current Medications Medications (Trade) Dose Ordered Sig/Clyde Route PRN Reason Start Time Stop Time Status Last Admin Dose Admin Acetaminophen (Tylenol) 650 mg Q4H PRN ORAL fever 12/30/18 04:30 01/28/19 16:29 12/31/18 16:39 Chlordiazepoxide (Librium) 25 mg Q6H ORAL 12/31/18 20:00 01/06/19 01:59 01/02/19 08:16 Chlorhexidine Gluconate (Sharmila-Hex 2%) 1 applic DAILY@2000 TOPIC 01/02/19 20:00 02/01/19 19:59 Dextrose (Dextrose 50%) 25 ml Q30M PRN IV Hypoglycemia 12/30/18 01:00 01/28/19 16:29 Dextrose (Dextrose 50%) 50 ml Q30M PRN IV Hypoglycemia 12/30/18 01:00 01/28/19 16:29 Dextrose/ Electrolytes 1,000 ml @ 75 mls/hr [id number] IV 12/31/18 17:00 01/30/19 16:59 Folic Acid (Folate) 3 mg DAILY ORAL 01/01/19 09:00 01/31/19 08:59 01/02/19 08:16 Heparin Sodium (Porcine) (Heparin 5000 units/ml) 5,000 units EVERY 12 HOURS SUBQ 12/30/18 09:00 01/28/19 20:59 01/01/19 08:36 Heparin Sodium/ Sodium Chloride (Heparin 1000 units/500ml Premix) 1,000 unit ONCE PRN IV PICC 01/02/19 09:45 01/02/19 23:59 Iopamidol (Isovue-300 100ml) 100 ml NOW PRN INJ Radiology Procedure 12/30/18 13:45 01/02/19 13:44 Lactulose (Cephulac) 30 gm THREE TIMES A DAY ORAL 01/02/19 09:00 02/01/19 08:59 Levofloxacin (Levaquin) 750 mg DAILY ORAL 01/01/19 09:00 01/08/19 08:59 01/02/19 08:17 Lidocaine HCl (Xylocaine 1% 30ml) 30 ml ONCE PRN INJ PICC 01/02/19 09:45 01/02/19 23:59 Lorazepam (Ativan 2mg/ml 1ml) 2 mg Q1H PRN IV SEIZURES 12/30/18 11:42 01/06/19 11:41 Lorazepam (Ativan 2mg/ml 1ml) 2 mg Q6H PRN IV Agitation 12/31/18 20:00 01/06/19 19:59 01/01/19 11:02 Metronidazole (Flagyl) 250 mg Q8HR ORAL 01/01/19 14:00 01/07/19 21:59 01/02/19 05:51 Morphine Sulfate (Morphine Sulfate) 1 mg Q4H PRN IVP For Pain 12/30/18 04:30 01/05/19 16:29 12/30/18 07:58 Ondansetron HCl (Zofran) 4 mg Q6H PRN IVP Nausea & Vomiting 12/30/18 04:30 01/28/19 16:29 Pantoprazole (Protonix) 40 mg BID ORAL 12/30/18 09:00 01/28/19 17:59 01/02/19 08:16 Phosphorus (Phospha 250 Neutral) 500 mg THREE TIMES A DAY ORAL 01/01/19 18:00 01/31/19 17:59 01/02/19 08:16 Piperacillin Sod/ Tazobactam Sod 3.375 gm/Sodium Chloride 110 ml @ 27.5 mls/hr Q8H IVPB 12/30/18 10:00 01/06/19 09:59 12/31/18 10:18 Polyethylene Glycol (Miralax) 17 gm HSPRN PRN ORAL Constipation 12/30/18 16:30 01/28/19 16:29 Rifaximin (Xifaxan) 550 mg EVERY 12 HOURS ORAL 01/02/19 09:00 01/09/19 08:59 01/02/19 10:02 Zolpidem Tartrate (Ambien) 5 mg HSPRN PRN ORAL Insomnia 12/30/18 02:00 01/05/19 01:59 12/31/18 22:45 Marion Schneider MD Jan 02, 2019 11:01
--- NOTE | 2019-01-02 11:34 | Nephrology Progress Note ---
Assessment/Plan Problem List: (1) Alcoholic liver disease (2) Anemia (3) Electrolyte disorder Assessment Acute Alcoholic Gastritis / Encephalopathy - Intoxication Alcoholic Hepatitis Anemia Hypokalemia Psych disease Plan labs pending Due Picc today K and Mag and Phos supplement Monitor lytes / Lfts per orders Subjective ROS Limited/Unobtainable: No Constitutional: Reports: malaise, weakness Objective Objective Last 24 Hour Vital Signs Date Time Temp Pulse Resp B/P (MAP) Pulse Ox O2 Delivery O2 Flow Rate FiO2 01/02/19 09:00 Room Air 01/02/19 08:00 97.2 108 20 90/55 (67) 95 01/02/19 08:00 104 01/02/19 04:00 114 01/02/19 04:00 96.5 116 20 95/64 (74) 98 01/02/19 00:00 114 01/02/19 00:00 97.7 118 22 101/58 (72) 95 01/01/19 21:00 Room Air 01/01/19 20:00 96.9 117 18 93/57 (69) 97 01/01/19 20:00 118 01/01/19 15:58 99.7 111 18 117/70 (86) 97 01/01/19 15:34 114 01/01/19 12:00 99.0 111 18 128/60 (82) 97 01/01/19 11:58 116 Intake and Output 01/01/19 01/02/19 18:59 06:59 Intake Total 840 ml 240 ml Balance 840 ml 240 ml Intake Oral 840 ml 240 ml # Voids 2 1 # Bowel Movements 3 Laboratory Tests 01/02/19 07:49: Sodium Level 141, Potassium Level 3.7, Chloride Level 107, Carbon Dioxide Level 24, Anion Gap 10, Blood Urea Nitrogen 12, Creatinine 0.8, Estimat Glomerular Filtration Rate > 60, Glucose Level 119H, Calcium Level 7.5L, Total Bilirubin 14.1H, Direct Bilirubin 12.3H, Aspartate Amino Transf (AST/SGOT) 126H, Alanine Aminotransferase (ALT/SGPT) 31, Alkaline Phosphatase 416H, Ammonia 74H, Total Protein 5.3L, Albumin 1.7L, Globulin 3.6, Albumin/Globulin Ratio 0.5L 01/02/19 08:06: White Blood Count 11.5H, Red Blood Count 2.75L, Hemoglobin 9.0L, Hematocrit 28.6L, Mean Corpuscular Volume 104H, Mean Corpuscular Hemoglobin 32.8H, Mean Corpuscular Hemoglobin Concent 31.6L, Red Cell Distribution Width 16.9H, Platelet Count 191, Mean Platelet Volume 7.5, Neutrophils (%) (Auto) 75.3H, Lymphocytes (%) (Auto) 11.9L, Monocytes (%) (Auto) 8.2, Eosinophils (%) (Auto) 3.2H, Basophils (%) (Auto) 1.3, Prothrombin Time 16.6H, Prothromb Time International Ratio 1.6H Height (Feet): 5 Height (Inches): 5.00 Weight (Pounds): 160 General Appearance: no apparent distress, other - Jaundiced Neck: limited range of motion Cardiovascular: tachycardia Respiratory/Chest: decreased breath sounds Abdomen: distended Leonard Bautista MD Jan 02, 2019 11:34
[2019-01-02 11:48] LABS: PHOSPHORUS 1.4 MG/DL (2.5-4.9)
--- NOTE | 2019-01-02 11:53 | Cardiac Electrophysiology PN ---
Assessment/Plan Assessment/Plan 1. Hypotension 90s and sinus tach 100s. Add Midodrine 5 tid 2. Atypical Chest pain . EKG showed nonspecific ST-T wave abnormality. No ID. Echo EF 55% 3. Persistent hypokalemia. Corrected. No arrhythmias. 4. Severe hyponatremia. Corrected 5. ETOH Cirrhosis with Bilirubin 14. FU GI. Paracentesis? DW RN Subjective Subjective Remained in Sinus tach 106. Awaiting PICC line placement. ERCP and possible paracentesis pending Objective Last 24 Hour Vital Signs Date Time Temp Pulse Resp B/P (MAP) Pulse Ox O2 Delivery O2 Flow Rate FiO2 01/02/19 09:00 Room Air 01/02/19 08:00 97.2 108 20 90/55 (67) 95 01/02/19 08:00 104 01/02/19 04:00 114 01/02/19 04:00 96.5 116 20 95/64 (74) 98 01/02/19 00:00 114 01/02/19 00:00 97.7 118 22 101/58 (72) 95 01/01/19 21:00 Room Air 01/01/19 20:00 96.9 117 18 93/57 (69) 97 01/01/19 20:00 118 01/01/19 15:58 99.7 111 18 117/70 (86) 97 01/01/19 15:34 114 01/01/19 12:00 99.0 111 18 128/60 (82) 97 01/01/19 11:58 116 Intake and Output 01/01/19 01/02/19 18:59 06:59 Intake Total 840 ml 240 ml Balance 840 ml 240 ml Intake Oral 840 ml 240 ml # Voids 2 1 # Bowel Movements 3 Laboratory Tests Test 01/02/19 07:49 01/02/19 08:06 Sodium Level 141 MMOL/L (136-145) Potassium Level 3.7 MMOL/L (3.5-5.1) Chloride Level 107 MMOL/L (98-107) Carbon Dioxide Level 24 MMOL/L (21-32) Anion Gap 10 mmol/L (5-15) Blood Urea Nitrogen 12 mg/dL (7-18) Creatinine 0.8 MG/DL (0.55-1.30) Estimat Glomerular Filtration Rate > 60 mL/min (>60) Glucose Level 119 MG/DL (74-106) H Calcium Level 7.5 MG/DL (8.5-10.1) L Phosphorus Level Pending Magnesium Level Pending Total Bilirubin 14.1 MG/DL (0.2-1.0) H Direct Bilirubin 12.3 MG/DL (0.0-0.3) H Aspartate Amino Transf (AST/SGOT) 126 U/L (15-37) H Alanine Aminotransferase (ALT/SGPT) 31 U/L (12-78) Alkaline Phosphatase 416 U/L (46-116) H Ammonia 74 umol/L (11-32) H Total Protein 5.3 G/DL (6.4-8.2) L Albumin 1.7 G/DL (3.4-5.0) L Globulin 3.6 g/dL Albumin/Globulin Ratio 0.5 (1.0-2.7) L White Blood Count 11.5 K/UL (4.8-10.8) H Red Blood Count 2.75 M/UL (4.70-6.10) L Hemoglobin 9.0 G/DL (14.2-18.0) L Hematocrit 28.6 % (42.0-52.0) L Mean Corpuscular Volume 104 FL (80-99) H Mean Corpuscular Hemoglobin 32.8 PG (27.0-31.0) H Mean Corpuscular Hemoglobin Concent 31.6 G/DL (32.0-36.0) L Red Cell Distribution Width 16.9 % (11.6-14.8) H Platelet Count 191 K/UL (150-450) Mean Platelet Volume 7.5 FL (6.5-10.1) Neutrophils (%) (Auto) 75.3 % (45.0-75.0) H Lymphocytes (%) (Auto) 11.9 % (20.0-45.0) L Monocytes (%) (Auto) 8.2 % (1.0-10.0) Eosinophils (%) (Auto) 3.2 % (0.0-3.0) H Basophils (%) (Auto) 1.3 % (0.0-2.0) Prothrombin Time 16.6 SEC (9.30-11.50) H Prothromb Time International Ratio 1.6 (0.9-1.1) H Microbiology Date/Time Source Procedure Growth Status 12/31/18 10:45 Blood Blood Culture - Preliminary NO GROWTH AFTER 24 HOURS Resulted 12/31/18 10:30 Blood Blood Culture - Preliminary NO GROWTH AFTER 24 HOURS Resulted Objective General Appearance: No apparent distress, alert HEENT: Jaundiced Cardiovascular: normal S1 and S2 and no murmur Respiratory/Chest: normal breath sounds, no respiratory distress Abdominal Exam: normal bowel sounds, non tender, soft with ascites Extremities: normal range of motion, non-tender. 1 plus edema Franck Saeed MD Jan 02, 2019 11:53
[2019-01-02 12:00] VITALS: BP 102/70
--- NOTE | 2019-01-02 12:32 | NUR ---
NURSE NOTES: Spoke with Dr. Rich about whether patient with have ERCP or paracentesis. He said he will let us know when to make the patient NPO.
--- NOTE | 2019-01-02 13:19 | NUR ---
*-* INSURANCE *-* ALL CLINICALS AND REVIEWS HAVE BEEN FAXED TO: ANNAMAR[facility] SALAZAR/ERNESTO NCM: DOMINGUEZ Iglesias P- [phone] F- [phone].....REVIEW/CLINICAL
--- NOTE | 2019-01-02 13:47 | Infectious Diseases Prog Note ---
Assessment/Plan Assessment/Plan 58 yo male with PMHx of EtOH abuse, Depression and anxiety, SI who presented to the ED on 12/29/18 with N/V and abdominal pain. Leukocytosis and single high temp- Probable acute cholecystitis Likely due to gastritis from EtOH need -MRCP : Very limited exam, as described. Normal caliber bile ducts without definite filling defects to suggest choledocholithiasis Cholelithiasis. Gallbladder wall thickening, also described on prior sonogram. Most likely on the basis of hepatocellular derangement but the possibility of acute cholecystitis should also be considered. Ascites. Abnormal hepatic morphology, also previously described, suggestive of cirrhotic change -Abd US: Hepatomegaly. Coarsened hepatic echogenicity and surface nodularitysuggests cirrhosis. Ascites, not demonstrated previously. Cholelithiasis and gallbladder sludge, not evident previously. Gallbladder wall thickening and pericholecystic fluid, probably due to the hepatocellular derangements, but the possibility of acute cholecystitis should also be considered. Correlate with clinical findings, consider nuclear medicine hepatobiliary scan if clinically indicated. Negative for dilated bile ducts. Incidental finding small left renal cyst -CT abd/p: Chronic liver disease/cirrhosis with fatty infiltration, enlargement of the liver and stigmata of portal hypertension including ascites and splenomegaly, recanalized umbilical vein. Basilar atelectasis. Probable gallstones. Tiny bilateral renal hypodensities too small to characterize.Fecal impaction Cirrhosis EtOH abuse Hep A/B/C - Pend Depression and anxiety SI HIV (-) PLAN: - Continue Zosyn #4 and Levofloxacin #1 - Monitor CBC and Temps - Monitor clinically - hep panel We will continue to follow the patient during this hospitalization. Subjective Allergies: Coded Allergies: No Known Allergies (Verified , 10/22/06) Subjective Patient awake and alert He says that he want to . Afebrile Mild leukocytosis Objective Vital Signs Last 24 Hour Vital Signs Date Time Temp Pulse Resp B/P (MAP) Pulse Ox O2 Delivery O2 Flow Rate FiO2 01/02/19 12:00 97.9 118 24 102/70 (81) 98 01/02/19 09:00 Room Air 01/02/19 08:00 97.2 108 20 90/55 (67) 95 01/02/19 08:00 104 01/02/19 04:00 114 01/02/19 04:00 96.5 116 20 95/64 (74) 98 01/02/19 00:00 114 01/02/19 00:00 97.7 118 22 101/58 (72) 95 01/01/19 21:00 Room Air 01/01/19 20:00 96.9 117 18 93/57 (69) 97 01/01/19 20:00 118 01/01/19 15:58 99.7 111 18 117/70 (86) 97 01/01/19 15:34 114 Height (Feet): 5 Height (Inches): 5.00 Weight (Pounds): 160 Objective Gen: NAD HEENT: NCAT, MMM, EOMI LUNGS: CTAB, No W/C, No Accessory muscle use CARDS: RRR, S1, S2, No M/R/G, ABD: Soft, Mild Epigastric pain Ext: C/C/E, Pulses 2+ B/L (DP, Rad): NEURO: A/O x 4, Strength and Sensation Grossly intact Microbiology Date/Time Source Procedure Growth Status 12/31/18 10:45 Blood Blood Culture - Preliminary NO GROWTH AFTER 24 HOURS Resulted 12/31/18 10:30 Blood Blood Culture - Preliminary NO GROWTH AFTER 24 HOURS Resulted Laboratory Tests Test 01/02/19 07:49 01/02/19 08:06 Sodium Level 141 MMOL/L (136-145) Potassium Level 3.7 MMOL/L (3.5-5.1) Chloride Level 107 MMOL/L (98-107) Carbon Dioxide Level 24 MMOL/L (21-32) Anion Gap 10 mmol/L (5-15) Blood Urea Nitrogen 12 mg/dL (7-18) Creatinine 0.8 MG/DL (0.55-1.30) Estimat Glomerular Filtration Rate > 60 mL/min (>60) Glucose Level 119 MG/DL (74-106) H Calcium Level 7.5 MG/DL (8.5-10.1) L Phosphorus Level 1.4 MG/DL (2.5-4.9) L Magnesium Level 1.8 MG/DL (1.8-2.4) Total Bilirubin 14.1 MG/DL (0.2-1.0) H Direct Bilirubin 12.3 MG/DL (0.0-0.3) H Aspartate Amino Transf (AST/SGOT) 126 U/L (15-37) H Alanine Aminotransferase (ALT/SGPT) 31 U/L (12-78) Alkaline Phosphatase 416 U/L (46-116) H Ammonia 74 umol/L (11-32) H Total Protein 5.3 G/DL (6.4-8.2) L Albumin 1.7 G/DL (3.4-5.0) L Globulin 3.6 g/dL Albumin/Globulin Ratio 0.5 (1.0-2.7) L White Blood Count 11.5 K/UL (4.8-10.8) H Red Blood Count 2.75 M/UL (4.70-6.10) L Hemoglobin 9.0 G/DL (14.2-18.0) L Hematocrit 28.6 % (42.0-52.0) L Mean Corpuscular Volume 104 FL (80-99) H Mean Corpuscular Hemoglobin 32.8 PG (27.0-31.0) H Mean Corpuscular Hemoglobin Concent 31.6 G/DL (32.0-36.0) L Red Cell Distribution Width 16.9 % (11.6-14.8) H Platelet Count 191 K/UL (150-450) Mean Platelet Volume 7.5 FL (6.5-10.1) Neutrophils (%) (Auto) 75.3 % (45.0-75.0) H Lymphocytes (%) (Auto) 11.9 % (20.0-45.0) L Monocytes (%) (Auto) 8.2 % (1.0-10.0) Eosinophils (%) (Auto) 3.2 % (0.0-3.0) H Basophils (%) (Auto) 1.3 % (0.0-2.0) Prothrombin Time 16.6 SEC (9.30-11.50) H Prothromb Time International Ratio 1.6 (0.9-1.1) H Current Medications Medications (Trade) Dose Ordered Sig/Clyde Route PRN Reason Start Time Stop Time Status Last Admin Dose Admin Acetaminophen (Tylenol) 650 mg Q4H PRN ORAL fever 12/30/18 04:30 01/28/19 16:29 01/02/19 11:22 Chlordiazepoxide (Librium) 25 mg Q6H ORAL 12/31/18 20:00 01/06/19 01:59 01/02/19 08:16 Chlorhexidine Gluconate (Sharmila-Hex 2%) 1 applic DAILY@2000 TOPIC 01/02/19 20:00 02/01/19 19:59 Dextrose (Dextrose 50%) 25 ml Q30M PRN IV Hypoglycemia 12/30/18 01:00 01/28/19 16:29 Dextrose (Dextrose 50%) 50 ml Q30M PRN IV Hypoglycemia 12/30/18 01:00 01/28/19 16:29 Dextrose/ Electrolytes 1,000 ml @ 75 mls/hr [id number] IV 12/31/18 17:00 01/30/19 16:59 Folic Acid (Folate) 3 mg DAILY ORAL 01/01/19 09:00 01/31/19 08:59 01/02/19 08:16 Heparin Sodium (Porcine) (Heparin 5000 units/ml) 5,000 units EVERY 12 HOURS SUBQ 12/30/18 09:00 01/28/19 20:59 01/01/19 08:36 Heparin Sodium/ Sodium Chloride (Heparin 1000 units/500ml Premix) 1,000 unit ONCE PRN IV PICC 01/02/19 09:45 01/02/19 23:59 Lactulose (Cephulac) 30 gm THREE TIMES A DAY ORAL 01/02/19 09:00 02/01/19 08:59 Levofloxacin (Levaquin) 750 mg DAILY ORAL 01/01/19 09:00 01/08/19 08:59 01/02/19 08:17 Lidocaine HCl (Xylocaine 1% 30ml) 30 ml ONCE PRN INJ PICC 01/02/19 09:45 01/02/19 23:59 Lorazepam (Ativan 2mg/ml 1ml) 0.5 mg Q4H PRN IV For Anxiety 01/02/19 10:54 01/09/19 10:53 Lorazepam (Ativan 2mg/ml 1ml) 2 mg Q1H PRN IV SEIZURES 12/30/18 11:42 01/06/19 11:41 Lorazepam (Ativan 2mg/ml 1ml) 2 mg Q6H PRN IV Agitation 12/31/18 20:00 01/06/19 19:59 01/01/19 11:02 Metronidazole (Flagyl) 250 mg Q8HR ORAL 01/01/19 14:00 01/07/19 21:59 01/02/19 05:51 Midodrine (Pro-Amatine) 5 mg THREE TIMES A DAY ORAL 01/02/19 13:00 02/01/19 12:59 Morphine Sulfate (Morphine Sulfate) 1 mg Q4H PRN IVP For Pain 12/30/18 04:30 01/05/19 16:29 12/30/18 07:58 Ondansetron HCl (Zofran) 4 mg Q6H PRN IVP Nausea & Vomiting 12/30/18 04:30 01/28/19 16:29 Pantoprazole (Protonix) 40 mg BID ORAL 12/30/18 09:00 01/28/19 17:59 01/02/19 08:16 Phosphorus (Phospha 250 Neutral) 500 mg THREE TIMES A DAY ORAL 01/01/19 18:00 01/31/19 17:59 01/02/19 08:16 Piperacillin Sod/ Tazobactam Sod 3.375 gm/Sodium Chloride 110 ml @ 27.5 mls/hr Q8H IVPB 12/30/18 10:00 01/06/19 09:59 12/31/18 10:18 Polyethylene Glycol (Miralax) 17 gm HSPRN PRN ORAL Constipation 12/30/18 16:30 01/28/19 16:29 Rifaximin (Xifaxan) 550 mg EVERY 12 HOURS ORAL 01/02/19 09:00 01/09/19 08:59 01/02/19 10:02 Zolpidem Tartrate (Ambien) 5 mg HSPRN PRN ORAL Insomnia 12/30/18 02:00 01/05/19 01:59 12/31/18 22:45 Devon Kingsley MD Jan 02, 2019 13:47
--- NOTE | 2019-01-02 14:22 | Diagnostic Imaging Report ---
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 The left upper extremity was prepped with alcohol. All elements of maximal sterile barrier technique were followed including usage of a cap, mask, sterile gown, sterile gloves, hand hygiene and a large sterile sheet. Sonographic evaluation of the upper extremity was performed demonstrating a patent and compressible brachial vein. Access was obtained under real-time ultrasound guidance (with utilization of sterile gel and sterile probe cover) and digital image was saved and archived. An .018 wire was introduced. Needle exchanged for a 5 Uzbek peel-away sheath. Measurements were obtained. A 5 Uzbek dual-lumen Power PICC line catheter was cut to 45 cm and introduced over the wire. Peel-away sheath and wire were removed.Catheter was secured to the skin using 2-0 Prolene suture. Both ports aspirate and flush easily. A single fluoroscopic image shows the distal tip in the superior vena cava. Fluoroscopic time 41 seconds Impression: Successful placement of an upper extremity PICC line catheter
[2019-01-02] MEDS: Midodrine 10mg tab ORAL SCH ×2 (14:53→18:16)
--- NOTE | 2019-01-02 14:54 | NUR ---
Social Service Note ELENA spoke with Sandy [phone] patient's sister regarding a family meeting to address plan of care with Dr. Schneider. Sister will speak with her siblings to obtain availability. ELENA address code status and hospice care. At this time family is requesting aggressive treatment. Will monitor and follow up.
[2019-01-02 16:00] VITALS: BP 92/64
[2019-01-02] MEDS: LORazepam Inj 2mg/ml 1ml IV PRN (16:40)
--- NOTE | 2019-01-02 16:45 | NUR ---
NURSE NOTES: Pt complaining of anxiety all day long. Spoke with Dr. Schneider who ordered him 0.5 mg ativan. Waited to administer until patient had PICC line. Ativan administered.
--- NOTE | 2019-01-02 17:54 | NUR ---
NURSE NOTES: Pt had a run of SVT of 177 bpm for about 20 seconds. Pt was at rest. Left message with Dr. Saeed; awaiting response.
--- NOTE | 2019-01-02 19:20 | NUR ---
HAND-OFF: Report given to BRANNON Dodson. Pt is in stable condition; plan of care endorsed.
--- NOTE | 2019-01-02 19:30 | NUR ---
NURSE NOTES: Report received from Rivera Hines RN. Pt is resting in bed in stable condition. Pt is AOx1. Pt is on room air and breathing is even and unlabored. No acute distress noted. IV site is L upper arm PICC line inserted on 01/02 @ 1415. Dressing is dry and intact, to be changed tomorrow after 24 hours per protocol. Bed is in lowest position with brake engaged, side rails up x3, and bed alarm on. Call light and side table placed within reach. Family is at bedside. Will continue to monitor.
[2019-01-02 20:00] VITALS: BP 101/63
[2019-01-02] MEDS: Dyna-Hex 2% Top Sol 2oz TOPIC SCH (20:48)
--- NOTE | 2019-01-02 23:32 | Neurology Progress Note ---
Interim History Interim History ROS Limited/Unobtainable: No Complaints: AMS Events: This visit was performed on January 02, [address] Dee. Interim History No changes in MS- remains confused and weak. Review of Systems All Systems: reviewed and negative except above Objective Physical Exam Last Vital Signs Date Time Temp Pulse Resp B/P (MAP) Pulse Ox O2 Delivery O2 Flow Rate FiO2 01/02/19 20:00 99.8 116 22 101/63 (76) 95 01/02/19 09:00 Room Air Laboratory Tests Test 01/02/19 07:49 01/02/19 08:06 Sodium Level 141 MMOL/L (136-145) Potassium Level 3.7 MMOL/L (3.5-5.1) Chloride Level 107 MMOL/L (98-107) Carbon Dioxide Level 24 MMOL/L (21-32) Anion Gap 10 mmol/L (5-15) Blood Urea Nitrogen 12 mg/dL (7-18) Creatinine 0.8 MG/DL (0.55-1.30) Estimat Glomerular Filtration Rate > 60 mL/min (>60) Glucose Level 119 MG/DL (74-106) H Calcium Level 7.5 MG/DL (8.5-10.1) L Phosphorus Level 1.4 MG/DL (2.5-4.9) L Magnesium Level 1.8 MG/DL (1.8-2.4) Total Bilirubin 14.1 MG/DL (0.2-1.0) H Direct Bilirubin 12.3 MG/DL (0.0-0.3) H Aspartate Amino Transf (AST/SGOT) 126 U/L (15-37) H Alanine Aminotransferase (ALT/SGPT) 31 U/L (12-78) Alkaline Phosphatase 416 U/L (46-116) H Ammonia 74 umol/L (11-32) H Total Protein 5.3 G/DL (6.4-8.2) L Albumin 1.7 G/DL (3.4-5.0) L Globulin 3.6 g/dL Albumin/Globulin Ratio 0.5 (1.0-2.7) L White Blood Count 11.5 K/UL (4.8-10.8) H Red Blood Count 2.75 M/UL (4.70-6.10) L Hemoglobin 9.0 G/DL (14.2-18.0) L Hematocrit 28.6 % (42.0-52.0) L Mean Corpuscular Volume 104 FL (80-99) H Mean Corpuscular Hemoglobin 32.8 PG (27.0-31.0) H Mean Corpuscular Hemoglobin Concent 31.6 G/DL (32.0-36.0) L Red Cell Distribution Width 16.9 % (11.6-14.8) H Platelet Count 191 K/UL (150-450) Mean Platelet Volume 7.5 FL (6.5-10.1) Neutrophils (%) (Auto) 75.3 % (45.0-75.0) H Lymphocytes (%) (Auto) 11.9 % (20.0-45.0) L Monocytes (%) (Auto) 8.2 % (1.0-10.0) Eosinophils (%) (Auto) 3.2 % (0.0-3.0) H Basophils (%) (Auto) 1.3 % (0.0-2.0) Prothrombin Time 16.6 SEC (9.30-11.50) H Prothromb Time International Ratio 1.6 (0.9-1.1) H General: other Head: other Neck: no rigidity EENT: other Neurologic Exam Mental Status: other Speech: other Language: other Cranial Nerve II: other Cranial Nerves III, IV, : other Cranial Nerve V: other Cranial Nerve VII: other Cranial Nerve VIII: other Cranial Nerve IX: other Cranial Nerve XI: other Cranial Nerve XII: other Motor System: other Sensory: other Coordination: other - More appropriately verbal in conversation at times with depressed affect and difficulty following instructions during examination. Impression/Recommendations Problems: (1) Acute upper GI bleed (2) Fecal impaction in rectum (3) Esophagitis (4) Alcoholic liver disease (5) Elevated LFTs (6) Acute alcoholic gastritis (7) Psychosis (8) Acute alcoholic intoxication (9) Acute encephalopathy Status: unchanged Recommendations Ammonia improved today - continue Lactulose Continue Q4 Neuro obs CIWA protocol PT Frequent reorientation Maintenance of good sleep hygiene with nonessential care withheld overnights Consider additional enteral feeding methods Psych recommendations regarding best non-sedating behavioral medications with least hepatic excretion at this time. Anika Pettit N.P. Jan 02, 2019 23:32
--- NOTE | 2019-01-02 23:32 | Neurology Progress Note ---
Interim History Interim History ROS Limited/Unobtainable: No Complaints: AMS Events: This visit was performed on January 01, [address] Gold Dee. Interim History Patient is depressed, stating that he is going to . Review of Systems Neuro Review of Systems Patient is more alert and interactive today- has been visited by family/ friends over the weekend. All Systems: reviewed and negative except above Objective Physical Exam Last Vital Signs Date Time Temp Pulse Resp B/P (MAP) Pulse Ox O2 Delivery O2 Flow Rate FiO2 01/02/19 20:00 99.8 116 22 101/63 (76) 95 01/02/19 09:00 Room Air Laboratory Tests Test 01/02/19 07:49 01/02/19 08:06 Sodium Level 141 MMOL/L (136-145) Potassium Level 3.7 MMOL/L (3.5-5.1) Chloride Level 107 MMOL/L (98-107) Carbon Dioxide Level 24 MMOL/L (21-32) Anion Gap 10 mmol/L (5-15) Blood Urea Nitrogen 12 mg/dL (7-18) Creatinine 0.8 MG/DL (0.55-1.30) Estimat Glomerular Filtration Rate > 60 mL/min (>60) Glucose Level 119 MG/DL (74-106) H Calcium Level 7.5 MG/DL (8.5-10.1) L Phosphorus Level 1.4 MG/DL (2.5-4.9) L Magnesium Level 1.8 MG/DL (1.8-2.4) Total Bilirubin 14.1 MG/DL (0.2-1.0) H Direct Bilirubin 12.3 MG/DL (0.0-0.3) H Aspartate Amino Transf (AST/SGOT) 126 U/L (15-37) H Alanine Aminotransferase (ALT/SGPT) 31 U/L (12-78) Alkaline Phosphatase 416 U/L (46-116) H Ammonia 74 umol/L (11-32) H Total Protein 5.3 G/DL (6.4-8.2) L Albumin 1.7 G/DL (3.4-5.0) L Globulin 3.6 g/dL Albumin/Globulin Ratio 0.5 (1.0-2.7) L White Blood Count 11.5 K/UL (4.8-10.8) H Red Blood Count 2.75 M/UL (4.70-6.10) L Hemoglobin 9.0 G/DL (14.2-18.0) L Hematocrit 28.6 % (42.0-52.0) L Mean Corpuscular Volume 104 FL (80-99) H Mean Corpuscular Hemoglobin 32.8 PG (27.0-31.0) H Mean Corpuscular Hemoglobin Concent 31.6 G/DL (32.0-36.0) L Red Cell Distribution Width 16.9 % (11.6-14.8) H Platelet Count 191 K/UL (150-450) Mean Platelet Volume 7.5 FL (6.5-10.1) Neutrophils (%) (Auto) 75.3 % (45.0-75.0) H Lymphocytes (%) (Auto) 11.9 % (20.0-45.0) L Monocytes (%) (Auto) 8.2 % (1.0-10.0) Eosinophils (%) (Auto) 3.2 % (0.0-3.0) H Basophils (%) (Auto) 1.3 % (0.0-2.0) Prothrombin Time 16.6 SEC (9.30-11.50) H Prothromb Time International Ratio 1.6 (0.9-1.1) H General: other Head: other Neurologic Exam Mental Status: other Speech: other Language: other Cranial Nerve II: other Cranial Nerves III, IV, : PERRLA, EOMI, other Cranial Nerve V: normal facial sensations, temporales function normal, other Cranial Nerve VII: no facial asymmetry, other Cranial Nerve VIII: normal hearing, other Cranial Nerve IX: other Cranial Nerve XI: other Cranial Nerve XII: other Motor System: other Sensory: normal pinprick, normal light touch, normal position sense Coordination: other Stance: other - Patient remains weak throughout all extremities with non focal exam. He is more appropriate in conversation today but remains non focal and encephalopathic Gait: other Impression/Recommendations Problems: (1) Acute upper GI bleed (2) Fecal impaction in rectum (3) Esophagitis (4) Alcoholic liver disease (5) Elevated LFTs (6) Acute alcoholic gastritis (7) Psychosis (8) Acute alcoholic intoxication (9) Acute encephalopathy Status: not improved, unchanged Recommendations Patient remains very weak- Ammonia unchanged Remains encephalpathic and non focal Replace/ Replete lytes Consider enteral feeding given significant weakness and ongoing electrolyte deficiencies/ low serum protein . Checking AFP given ongoing Leukocytosis and elevated LFTs Continue Q4 hour neuro obs Frequent reorientation PT Eval/ Tx as able OOB Nutritional evaluation Anika Pettit N.P. Jan 02, 2019 23:32
[2019-01-03] VITALS: BP 91/53
[2019-01-03] MEDS: chlordiazePOXIDE 25mg Cap ORAL SCH ×4 (01:49→21:14)
[2019-01-03 04:00] VITALS: BP 109/66
--- NOTE | 2019-01-03 04:25 | NUR ---
NURSE NOTES: BOOKMOBILE CLERK Cherin at bedside and updated on pt current condition. Requested for psychiatric consult or anti-depressant. Will endorsed to day shift RN to follow up with primary care team.
[2019-01-03 05:51] LABS: HEMATOCRIT 24.4 % (42.0-52.0); HEMOGLOBIN 7.6 G/DL (14.2-18.0); MEAN CORPUSCULAR VOLUME 106 FL (80-99); PLATELET COUNT 182 K/UL (150-450); RED BLOOD COUNT 2.31 M/UL (4.70-6.10); RED CELL DISTRIBUTION WIDTH 16.3 % (11.6-14.8); WHITE BLOOD COUNT 10.4 K/UL (4.8-10.8)
[2019-01-03] MEDS: metroNIDAZOLE 250mg tab ORAL SCH ×3 (06:44→21:14)
--- NOTE | 2019-01-03 07:26 | General Progress Note ---
Assessment/Plan Problem List: (1) Elevated LFTs ICD Codes: R94.5 - Abnormal results of liver function studies SNOMED: 790575680, 643170367 (2) Esophagitis ICD Codes: K20.9 - Esophagitis, unspecified SNOMED: 89509768 (3) Acute alcoholic gastritis ICD Codes: K29.20 - Alcoholic gastritis without bleeding SNOMED: 0753180 Qualifiers: Qualified Codes: K29.20 - Alcoholic gastritis without bleeding (4) Alcoholic liver disease ICD Codes: K70.9 - Alcoholic liver disease, unspecified SNOMED: 47668952 Status: not improved, unchanged Assessment/Plan: maging noted, cirrhosis rising bili US with doppler r/o Budd-Chiari Syndrome>>pending lactulose + xifaxan>>> improving ammonia level OB stool r/o GI bleed, possible endoscopy if positive to evaluate for EV, stable H&H. monitor H&H, prn transfusions bowel regimen ppi fu labs fu neurology recs Subjective Allergies: Coded Allergies: No Known Allergies (Verified , 10/22/06) Objective Last 24 Hour Vital Signs Date Time Temp Pulse Resp B/P (MAP) Pulse Ox O2 Delivery O2 Flow Rate FiO2 01/03/19 04:00 97.9 110 18 109/66 (80) 100 01/03/19 04:00 108 01/03/19 00:00 99.0 112 21 91/53 (66) 93 01/03/19 00:00 111 01/02/19 21:00 Room Air 01/02/19 20:00 99.8 116 22 101/63 (76) 95 01/02/19 20:00 110 01/02/19 17:02 177 01/02/19 16:00 107 01/02/19 16:00 97.5 108 22 92/64 (73) 97 01/02/19 12:00 107 01/02/19 12:00 97.9 118 24 102/70 (81) 98 01/02/19 09:00 Room Air 01/02/19 08:00 97.2 108 20 90/55 (67) 95 01/02/19 08:00 104 Intake and Output 01/02/19 01/03/19 19:00 07:00 Intake Total 240 ml Output Total 0 ml Balance 240 ml Intake Oral 240 ml Output Emesis 0 ml # Voids 1 2 # Bowel Movements 2 Laboratory Tests 01/02/19 07:49: Sodium Level 141, Potassium Level 3.7, Chloride Level 107, Carbon Dioxide Level 24, Anion Gap 10, Blood Urea Nitrogen 12, Creatinine 0.8, Estimat Glomerular Filtration Rate > 60, Glucose Level 119H, Calcium Level 7.5L, Phosphorus Level 1.4L, Magnesium Level 1.8, Total Bilirubin 14.1H, Direct Bilirubin 12.3H, Aspartate Amino Transf (AST/SGOT) 126H, Alanine Aminotransferase (ALT/SGPT) 31, Alkaline Phosphatase 416H, Ammonia 74H, Total Protein 5.3L, Albumin 1.7L, Globulin 3.6, Albumin/Globulin Ratio 0.5L 01/02/19 08:06: White Blood Count 11.5H, Red Blood Count 2.75L, Hemoglobin 9.0L, Hematocrit 28.6L, Mean Corpuscular Volume 104H, Mean Corpuscular Hemoglobin 32.8H, Mean Corpuscular Hemoglobin Concent 31.6L, Red Cell Distribution Width 16.9H, Platelet Count 191, Mean Platelet Volume 7.5, Neutrophils (%) (Auto) 75.3H, Lymphocytes (%) (Auto) 11.9L, Monocytes (%) (Auto) 8.2, Eosinophils (%) (Auto) 3.2H, Basophils (%) (Auto) 1.3, Prothrombin Time 16.6H, Prothromb Time International Ratio 1.6H 01/03/19 05:15: Sodium Level [Pending], Potassium Level [Pending], Chloride Level [Pending], Carbon Dioxide Level [Pending], Blood Urea Nitrogen [Pending], Creatinine [ Pending], Estimat Glomerular Filtration Rate [Pending], Glucose Level [Pending] , Calcium Level [Pending], White Blood Count 10.4, Red Blood Count 2.31L, Hemoglobin 7.6L, Hematocrit 24.4L, Mean Corpuscular Volume 106H, Mean Corpuscular Hemoglobin 32.8H, Mean Corpuscular Hemoglobin Concent 31.0L, Red Cell Distribution Width 16.3H, Platelet Count 182, Mean Platelet Volume 6.9, Neutrophils (%) (Auto) , Lymphocytes (%) (Auto) , Monocytes (%) (Auto) , Eosinophils (%) (Auto) , Basophils (%) (Auto) , Alpha Fetoprotein [Pending] Height (Feet): 5 Height (Inches): 5.00 Weight (Pounds): 160 General Appearance: lethargic EENT: normal ENT inspection, scleral icterus Neck: supple Cardiovascular: normal rate Respiratory/Chest: decreased breath sounds Abdomen: normal bowel sounds, non tender, soft Extremities: non-tender Jarod Rich MD Jan 03, 2019 07:26
--- NOTE | 2019-01-03 07:28 | NUR ---
HAND-OFF: Report given to Rivera Hines RN. Pt is resting in bed in stable condition. No acute distress noted. Endorsed plan of care.
--- NOTE | 2019-01-03 07:31 | NUR ---
NURSE NOTES: Received report from BRANNON Dodson. Pt is lying comfortably in semi-fowlers. No signs of distress noted. A+Ox2, denies pain/SOB. Left upper arm PICC line patent and running fluids @ prescribed rate. Respirations are even and unlabored on room air. Bed is at lowest position, brakes engaged, siderails x2, bed alarm on, and call light within reach. Pt is in stable condition at this time; will continue to monitor.
[2019-01-03] MEDS: Heparin 5000 units/ml inj SUBQ SCH ×2 (07:37→21:17)
[2019-01-03 07:58] VITALS: BP 108/66
[2019-01-03] MEDS: Phospha 250 Neutral tab ORAL SCH ×3 (08:11→17:48)
[2019-01-03] MEDS: Midodrine 10mg tab ORAL SCH ×3 (08:11→17:48)
[2019-01-03] MEDS: Lactulose 20gm/30ml UDC ORAL SCH ×3 (08:12→17:47)
[2019-01-03] MEDS: Zoysn 3.37gm in NS 100ML IVPB SCH (08:32)
--- NOTE | 2019-01-03 08:47 | NUR ---
CASE MANAGEMENT:REVIEW 12/31/18 SI:ACUTE ENCEPHALOPATHY ALCOHOLIC LIVER DISEASE. TACHYCARDIA 101.8 115 18 101/59 97% ON RA WBC+11.2 H/H-8.7/27.9 TBILI+11.5 DBILI+10.0 ALB-1.7 IS: FLAGYL PO Q8HRS IV NA-PHOS X1 IV K-PHOS X1 LACTULOSE PO QID LIBRIUM PO Q6HRS IVF@75/HR IV ZOSYN Q8HRS : TELEMETRY STATUS 01/01/19 SI: ACUTE ENCEPHALOPATHY ALCOHOLIC LIVER DISEASE. PERSISTENT TACHYCARDIA 99.7 111 18 117/70 97% ON RA WBC+11.6 H/H-8.6/27.7 K-3.4 CA-7.2 PHOS-1.4 TBILI+12.6 DBILI+10.6 IS: FLAGYL PO Q8HRS LEVAQUIN PO QD LACTULOSE PO QID LIBRIUM PO Q6HRS IVF@75/HR IV ZOSYN Q8HRS : TELEMETRY STATUS 01/02/19 SI: ACUTE ENCEPHALOPATHY ALCOHOLIC LIVER DISEASE. PERSISTENT TACHYCARDIA 99.8 116 22 101/63 95% ON RA WBC+11.5 H/H-9.0/28.6 TBILI+14.1 DBILI+12.3 IS: IV ZOSYN Q8HRS IVF@75/HR FLAGYL PO Q8HRS LEVAQUIN PO QD MIDODRINE PO TID LACTULOSE PO TID XIFAXAN PO Q12 PHOSPHORUS PO TID LIBRIUM PO Q6 HEPARIN SQ Q12 : TELEMETRY STATUS 01/03/19 SI: ACUTE ENCEPHALOPATHY ALCOHOLIC LIVER DISEASE. REMAINS TACHYCARDIA 96.9 110 20 91/53 100% ON RA H/H-7.6/24.4 IS: IV ZOSYN Q8HRS IVF@75/HR FLAGYL PO Q8HRS LEVAQUIN PO QD MIDODRINE PO TID LACTULOSE PO TID XIFAXAN PO Q12 PHOSPHORUS PO TID LIBRIUM PO Q6 HEPARIN SQ Q12 : TELEMETRY STATUS PLAN: REFER TO SNF UPON DISCHARGE Addendum: 01/03/19 at 1150 by SHANIQUA ARECHIGA LVN [employer] 01/03/19...ADDENDUM SPOKE WITH ARIELLE AT [facility]. SHE IS AWARE OF CURRENT DISCHARGE TO SNF ORDER FOR TODAY. ARIELLE HAS NOT GIVEN SNF AUTHORIZATION YET AND SAID SHE WOULD CALL BACK LATER
[2019-01-03 09:50] LABS: BASOPHILS % (AUTO) 1.5 % (0.0-2.0); EOSINOPHILS % (AUTO) 5.2 % (0.0-3.0); HEMATOCRIT 27.3 % (42.0-52.0); HEMOGLOBIN 8.5 G/DL (14.2-18.0); LYMPHOCYTES % (AUTO) 10.7 % (20.0-45.0); MEAN CORPUSCULAR VOLUME 105 FL (80-99); MONOCYTES % (AUTO) 9.8 % (1.0-10.0); NEUTROPHILS % (AUTO) 72.8 % (45.0-75.0); PLATELET COUNT 182 K/UL (150-450); WHITE BLOOD COUNT 10.7 K/UL (4.8-10.8)
[2019-01-03 10:04] LABS: ANION GAP 11 mmol/L (5-15); BLOOD UREA NITROGEN 11 mg/dL (7-18); CALCIUM 6.9 MG/DL (8.5-10.1); CARBON DIOXIDE 24 MMOL/L (21-32); CHLORIDE 107 MMOL/L (98-107); CREATININE 0.8 MG/DL (0.55-1.30); POTASSIUM 3.6 MMOL/L (3.5-5.1); SODIUM 141 MMOL/L (136-145)
--- NOTE | 2019-01-03 10:24 | Nephrology Progress Note ---
Assessment/Plan Problem List: (1) Alcoholic liver disease (2) Anemia (3) Electrolyte disorder Assessment Acute Alcoholic Gastritis / Encephalopathy - Intoxication Alcoholic Hepatitis Anemia Hypokalemia Psych disease Plan labs noted has PICC now K and Mag and Phos supplement as needed Monitor lytes / Lfts per orders Subjective ROS Limited/Unobtainable: No Constitutional: Reports: malaise, weakness Objective Objective Last 24 Hour Vital Signs Date Time Temp Pulse Resp B/P (MAP) Pulse Ox O2 Delivery O2 Flow Rate FiO2 01/03/19 07:58 96.9 110 20 108/66 (80) 92 01/03/19 04:00 97.9 110 18 109/66 (80) 100 01/03/19 04:00 108 01/03/19 00:00 99.0 112 21 91/53 (66) 93 01/03/19 00:00 111 01/02/19 21:00 Room Air 01/02/19 20:00 99.8 116 22 101/63 (76) 95 01/02/19 20:00 110 01/02/19 17:02 177 01/02/19 16:00 107 01/02/19 16:00 97.5 108 22 92/64 (73) 97 01/02/19 12:00 107 01/02/19 12:00 97.9 118 24 102/70 (81) 98 Intake and Output 01/02/19 01/03/19 18:59 06:59 Intake Total 240 ml Output Total 0 ml Balance 240 ml Intake Oral 240 ml Output Emesis 0 ml # Voids 1 2 # Bowel Movements 2 Laboratory Tests 01/03/19 05:15: White Blood Count 10.4, Red Blood Count 2.31L, Hemoglobin 7.6L, Hematocrit 24.4L , Mean Corpuscular Volume 106H, Mean Corpuscular Hemoglobin 32.8H, Mean Corpuscular Hemoglobin Concent 31.0L, Red Cell Distribution Width 16.3H, Platelet Count 182, Mean Platelet Volume 6.9, Neutrophils (%) (Auto) , Lymphocytes (%) (Auto) , Monocytes (%) (Auto) , Eosinophils (%) (Auto) , Basophils (%) (Auto) , Alpha Fetoprotein [Pending] 01/03/19 08:45: White Blood Count 10.7, Red Blood Count 2.60L, Hemoglobin 8.5L, Hematocrit 27.3L , Mean Corpuscular Volume 105H, Mean Corpuscular Hemoglobin 32.8H, Mean Corpuscular Hemoglobin Concent 31.3L, Red Cell Distribution Width 16.0H, Platelet Count 182, Mean Platelet Volume 7.1, Neutrophils (%) (Auto) 72.8, Lymphocytes (%) (Auto) 10.7L, Monocytes (%) (Auto) 9.8, Eosinophils (%) (Auto) 5.2H, Basophils (%) (Auto) 1.5, Sodium Level 141, Potassium Level 3.6, Chloride Level 107, Carbon Dioxide Level 24, Anion Gap 11, Blood Urea Nitrogen 11, Creatinine 0.8, Estimat Glomerular Filtration Rate > 60, Glucose Level 125H, Calcium Level 6.9L, Phosphorus Level [Pending], Magnesium Level [Pending], Total Bilirubin [Pending], Direct Bilirubin [Pending], Aspartate Amino Transf ( AST/SGOT) [Pending], Alanine Aminotransferase (ALT/SGPT) [Pending], Alkaline Phosphatase [Pending], Total Protein [Pending], Albumin [Pending] Height (Feet): 5 Height (Inches): 5.00 Weight (Pounds): 160 General Appearance: no apparent distress Objective no change Leonard Bautista MD Jan 03, 2019 10:24
[2019-01-03 10:45] LABS: ALANINE AMINOTRANSFERASE 22 U/L (12-78); ALBUMIN 1.4 G/DL (3.4-5.0); ALKALINE PHOSPHATASE 332 U/L (46-116); ASPARTATE AMINO TRANSFERASE 100 U/L (15-37); BILIRUBIN,DIRECT 9.3 MG/DL (0.0-0.3); BILIRUBIN,TOTAL 11.3 MG/DL (0.2-1.0); PHOSPHORUS 1.9 MG/DL (2.5-4.9)
--- NOTE | 2019-01-03 11:01 | Pulmonology Progress Note ---
Assessment/Plan Problems: (1) End stage liver disease (2) Acute upper GI bleed (3) Acute alcoholic intoxication (4) Coagulopathy (5) Psychosis (6) Acute encephalopathy (7) Alcoholic liver disease Assessment/Plan met with family members, the DPOA agreed with hospice and senior living placement keep in teli as long as tachycardic symptomatic treatment lactulose f/u Ammonia level. consider comfort care and DNR Subjective ROS Limited/Unobtainable: No Constitutional: Reports: no symptoms HEENT: Repors: no symptoms Respiratory: Reports: no symptoms Allergies: Coded Allergies: No Known Allergies (Verified , 10/22/06) Objective Last 24 Hour Vital Signs Date Time Temp Pulse Resp B/P (MAP) Pulse Ox O2 Delivery O2 Flow Rate FiO2 01/03/19 09:00 Room Air 01/03/19 07:58 96.9 110 20 108/66 (80) 92 01/03/19 04:00 97.9 110 18 109/66 (80) 100 01/03/19 04:00 108 01/03/19 00:00 99.0 112 21 91/53 (66) 93 01/03/19 00:00 111 01/02/19 21:00 Room Air 01/02/19 20:00 99.8 116 22 101/63 (76) 95 01/02/19 20:00 110 01/02/19 17:02 177 01/02/19 16:00 107 01/02/19 16:00 97.5 108 22 92/64 (73) 97 01/02/19 12:00 107 01/02/19 12:00 97.9 118 24 102/70 (81) 98 Intake and Output 01/02/19 01/03/19 18:59 06:59 Intake Total 240 ml Output Total 0 ml Balance 240 ml Intake Oral 240 ml Output Emesis 0 ml # Voids 1 2 # Bowel Movements 2 General Appearance: WD/WN HEENT: normocephalic, other - very icteric Respiratory/Chest: chest wall non-tender Cardiovascular: normal peripheral pulses, normal rate, no JVD Abdomen: soft, non tender Genitourinary: normal external genitalia Skin: no rash Laboratory Tests 01/03/19 05:15: White Blood Count 10.4, Red Blood Count 2.31L, Hemoglobin 7.6L, Hematocrit 24.4L , Mean Corpuscular Volume 106H, Mean Corpuscular Hemoglobin 32.8H, Mean Corpuscular Hemoglobin Concent 31.0L, Red Cell Distribution Width 16.3H, Platelet Count 182, Mean Platelet Volume 6.9, Neutrophils (%) (Auto) , Lymphocytes (%) (Auto) , Monocytes (%) (Auto) , Eosinophils (%) (Auto) , Basophils (%) (Auto) , Alpha Fetoprotein [Pending] 01/03/19 08:45: White Blood Count 10.7, Red Blood Count 2.60L, Hemoglobin 8.5L, Hematocrit 27.3L , Mean Corpuscular Volume 105H, Mean Corpuscular Hemoglobin 32.8H, Mean Corpuscular Hemoglobin Concent 31.3L, Red Cell Distribution Width 16.0H, Platelet Count 182, Mean Platelet Volume 7.1, Neutrophils (%) (Auto) 72.8, Lymphocytes (%) (Auto) 10.7L, Monocytes (%) (Auto) 9.8, Eosinophils (%) (Auto) 5.2H, Basophils (%) (Auto) 1.5, Sodium Level 141, Potassium Level 3.6, Chloride Level 107, Carbon Dioxide Level 24, Anion Gap 11, Blood Urea Nitrogen 11, Creatinine 0.8, Estimat Glomerular Filtration Rate > 60, Glucose Level 125H, Calcium Level 6.9L, Phosphorus Level 1.9L, Magnesium Level 1.5L, Total Bilirubin 11.3H, Direct Bilirubin 9.3H, Gamma Glutamyl Transpeptidase 1202H, Aspartate Amino Transf (AST/SGOT) 100H, Alanine Aminotransferase (ALT/SGPT) 22, Alkaline Phosphatase 332H, Total Protein 4.5L, Albumin 1.4L Current Medications Medications (Trade) Dose Ordered Sig/Clyde Route PRN Reason Start Time Stop Time Status Last Admin Dose Admin Chlordiazepoxide (Librium) 25 mg Q6H ORAL 12/31/18 20:00 01/06/19 01:59 01/03/19 08:11 Chlorhexidine Gluconate (Sharmila-Hex 2%) 1 applic DAILY@1999 TOPIC 01/02/19 20:00 02/01/19 19:59 01/02/19 20:48 Dextrose (Dextrose 50%) 25 ml Q30M PRN IV Hypoglycemia 12/30/18 01:00 01/28/19 16:29 Dextrose (Dextrose 50%) 50 ml Q30M PRN IV Hypoglycemia 12/30/18 01:00 01/28/19 16:29 Dextrose/ Electrolytes 1,000 ml @ 75 mls/hr [id number] IV 12/31/18 17:00 01/30/19 16:59 01/02/19 15:23 Heparin Sodium (Porcine) (Heparin 5000 units/ml) 5,000 units EVERY 12 HOURS SUBQ 12/30/18 09:00 01/28/19 20:59 01/02/19 20:49 Lactulose (Cephulac) 30 gm THREE TIMES A DAY ORAL 01/02/19 09:00 02/01/19 08:59 01/03/19 08:12 Levofloxacin (Levaquin) 750 mg DAILY ORAL 01/01/19 09:00 01/08/19 08:59 01/03/19 08:11 Lorazepam (Ativan 2mg/ml 1ml) 0.5 mg Q4H PRN IV For Anxiety 01/02/19 10:54 01/09/19 10:53 01/02/19 16:40 Lorazepam (Ativan 2mg/ml 1ml) 2 mg Q1H PRN IV SEIZURES 12/30/18 11:42 01/06/19 11:41 Lorazepam (Ativan 2mg/ml 1ml) 2 mg Q6H PRN IV Agitation 12/31/18 20:00 01/06/19 19:59 01/01/19 11:02 Metronidazole (Flagyl) 250 mg Q8HR ORAL 01/01/19 14:00 01/07/19 21:59 01/03/19 06:44 Midodrine (Pro-Amatine) 5 mg THREE TIMES A DAY ORAL 01/02/19 13:00 02/01/19 12:59 01/03/19 08:11 Morphine Sulfate (Morphine Sulfate) 1 mg Q4H PRN IVP For Pain 12/30/18 04:30 01/05/19 16:29 12/30/18 07:58 Ondansetron HCl (Zofran) 4 mg Q6H PRN IVP Nausea & Vomiting 12/30/18 04:30 01/28/19 16:29 Pantoprazole (Protonix) 40 mg BID ORAL 12/30/18 09:00 01/28/19 17:59 01/03/19 08:11 Phosphorus (Phospha 250 Neutral) 500 mg THREE TIMES A DAY ORAL 01/01/19 18:00 01/31/19 17:59 01/03/19 08:11 Piperacillin Sod/ Tazobactam Sod 3.375 gm/Sodium Chloride 110 ml @ 27.5 mls/hr Q8H IVPB 01/02/19 15:00 01/09/19 14:59 01/03/19 08:32 Polyethylene Glycol (Miralax) 17 gm HSPRN PRN ORAL Constipation 12/30/18 16:30 01/28/19 16:29 Potassium Phosphate 30 mm/ Sodium Chloride 285 ml @ 47.5 mls/hr ONCE ONCE IV 01/03/19 11:30 01/03/19 17:29 Rifaximin (Xifaxan) 550 mg EVERY 12 HOURS ORAL 01/02/19 09:00 01/09/19 08:59 01/03/19 08:11 Zolpidem Tartrate (Ambien) 5 mg HSPRN PRN ORAL Insomnia 12/30/18 02:00 01/05/19 01:59 12/31/18 22:45 Marion Schneider MD Jan 03, 2019 11:01
--- NOTE | 2019-01-03 11:25 | NUR ---
DISCHARGE PLANNING FAXED CLINCALS TO [facility] T: [phone] F: [phone] AWAITING ACCEPTANCE AND ROOM NUMBER
[2019-01-03] MEDS ORDERED: Potassium Phosphate 30 MM in NS 275 ML IV ONE (11:30)
[2019-01-03] MEDS: D5 1/2NS w/KCl 40meq 1000ml 1,000 ML IV SCH (11:35)
--- NOTE | 2019-01-03 11:35 | History and Physical ---
History of Present Illness General Reason for Hospitalization: Abdominal Pain Present Illness HPI 58 year old Male presents with hx of ETOH abuse, presented to ER with CC of to abdominal pain with nausea vomiting times one day. Patient reports some blood in his vomitus he denies melena or blood in the stool. Patient states that due to insurance purposes he has not had any of his medications for several months. Therefore he decided instead of taking his meds, to drink even more alcohol. Patient reports that he is homeless. He is admitted for further work up. Allergies: Coded Allergies: No Known Allergies (Verified , 10/22/06) Medication History Scheduled Carbamide Peroxide (Debrox), 10 DROP LEFT EAR TWICE A DAY Clonazepam* (Klonopin*), 1 MG ORAL QHS Divalproex Sodium* (Depakote*), 550 MG PO QHS, (Reported) Insulin Lispro (Humalog), 0 SUBQ AC+HS Lidocaine HCl 2% Viscous (Lidocaine HCl 2% Viscous), 15 ML PO TID Quetiapine Fumarate (Seroquel), 50 MG ORAL DAILY, (Reported) Quetiapine Fumarate* (Seroquel*), 25 MG ORAL Q8HR Rifaximin* (Xifaxan*), 550 MG ORAL Q12HR, (Reported) Spironolactone* (Aldactone*), 25 MG ORAL Q12HR Sucralfate* (Carafate*), 1 GM ORAL FOUR TIMES A DAY Scheduled PRN Diazepam* (Valium*), 10 MG ORAL Q6HR PRN for ANXIETY Miscellaneous Medications Unable to Obtain Medications (Unable To Obtain Meds), (Reported) Patient History Healthcare decision maker Resuscitation status Full Code Advanced Directive on File Past Medical/Surgical History Past Medical/Surgical History: (1) Psychosis (2) Alcoholic liver disease (3) End stage liver disease (4) Coagulopathy (5) Anemia Review of Systems All Other Systems: negative except mentioned in HPI Physical Exam General Appearance: cachetic Lines, tubes and drains: peripheral HEENT: normocephalic, anicteric Neck: non-tender, normal alignment Respiratory/Chest: chest wall non-tender, lungs clear Breasts: no masses Cardiovascular/Chest: normal rate Abdomen: normal bowel sounds, non tender Last 24 Hour Vital Signs Date Time Temp Pulse Resp B/P (MAP) Pulse Ox O2 Delivery O2 Flow Rate FiO2 01/03/19 09:00 Room Air 01/03/19 07:58 96.9 110 20 108/66 (80) 92 01/03/19 04:00 97.9 110 18 109/66 (80) 100 01/03/19 04:00 108 01/03/19 00:00 99.0 112 21 91/53 (66) 93 01/03/19 00:00 111 01/02/19 21:00 Room Air 01/02/19 20:00 99.8 116 22 101/63 (76) 95 01/02/19 20:00 110 01/02/19 17:02 177 01/02/19 16:00 107 01/02/19 16:00 97.5 108 22 92/64 (73) 97 01/02/19 12:00 107 01/02/19 12:00 97.9 118 24 102/70 (81) 98 Intake and Output 01/02/19 01/03/19 18:59 06:59 Intake Total 240 ml Output Total 0 ml Balance 240 ml Intake Oral 240 ml Output Emesis 0 ml # Voids 1 2 # Bowel Movements 2 Laboratory Tests Test 01/03/19 05:15 01/03/19 08:45 White Blood Count 10.4 K/UL (4.8-10.8) 10.7 K/UL (4.8-10.8) Red Blood Count 2.31 M/UL (4.70-6.10) L 2.60 M/UL (4.70-6.10) L Hemoglobin 7.6 G/DL (14.2-18.0) L 8.5 G/DL (14.2-18.0) L Hematocrit 24.4 % (42.0-52.0) L 27.3 % (42.0-52.0) L Mean Corpuscular Volume 106 FL (80-99) H 105 FL (80-99) H Mean Corpuscular Hemoglobin 32.8 PG (27.0-31.0) H 32.8 PG (27.0-31.0) H Mean Corpuscular Hemoglobin Concent 31.0 G/DL (32.0-36.0) L 31.3 G/DL (32.0-36.0) L Red Cell Distribution Width 16.3 % (11.6-14.8) H 16.0 % (11.6-14.8) H Platelet Count 182 K/UL (150-450) 182 K/UL (150-450) Mean Platelet Volume 6.9 FL (6.5-10.1) 7.1 FL (6.5-10.1) Neutrophils (%) (Auto) % (45.0-75.0) 72.8 % (45.0-75.0) Lymphocytes (%) (Auto) % (20.0-45.0) 10.7 % (20.0-45.0) L Monocytes (%) (Auto) % (1.0-10.0) 9.8 % (1.0-10.0) Eosinophils (%) (Auto) % (0.0-3.0) 5.2 % (0.0-3.0) H Basophils (%) (Auto) % (0.0-2.0) 1.5 % (0.0-2.0) Alpha Fetoprotein Pending Sodium Level 141 MMOL/L (136-145) Potassium Level 3.6 MMOL/L (3.5-5.1) Chloride Level 107 MMOL/L (98-107) Carbon Dioxide Level 24 MMOL/L (21-32) Anion Gap 11 mmol/L (5-15) Blood Urea Nitrogen 11 mg/dL (7-18) Creatinine 0.8 MG/DL (0.55-1.30) Estimat Glomerular Filtration Rate > 60 mL/min (>60) Glucose Level 125 MG/DL (74-106) H Calcium Level 6.9 MG/DL (8.5-10.1) L Phosphorus Level 1.9 MG/DL (2.5-4.9) L Magnesium Level 1.5 MG/DL (1.8-2.4) L Total Bilirubin 11.3 MG/DL (0.2-1.0) H Direct Bilirubin 9.3 MG/DL (0.0-0.3) H Gamma Glutamyl Transpeptidase 1202 U/L (5-85) H Aspartate Amino Transf (AST/SGOT) 100 U/L (15-37) H Alanine Aminotransferase (ALT/SGPT) 22 U/L (12-78) Alkaline Phosphatase 332 U/L (46-116) H Total Protein 4.5 G/DL (6.4-8.2) L Albumin 1.4 G/DL (3.4-5.0) L Height (Feet): 5 Height (Inches): 5.00 Weight (Pounds): 160 Medications Current Medications Medications (Trade) Dose Ordered Sig/Clyde Route PRN Reason Start Time Stop Time Status Last Admin Dose Admin Chlordiazepoxide (Librium) 25 mg Q6H ORAL 12/31/18 20:00 01/06/19 01:59 01/03/19 08:11 Chlorhexidine Gluconate (Sharmila-Hex 2%) 1 applic DAILY@2000 TOPIC 01/02/19 20:00 02/01/19 19:59 01/02/19 20:48 Dextrose (Dextrose 50%) 25 ml Q30M PRN IV Hypoglycemia 12/30/18 01:00 01/28/19 16:29 Dextrose (Dextrose 50%) 50 ml Q30M PRN IV Hypoglycemia 12/30/18 01:00 01/28/19 16:29 Dextrose/ Electrolytes 1,000 ml @ 75 mls/hr [id number] IV 12/31/18 17:00 01/30/19 16:59 01/02/19 15:23 Heparin Sodium (Porcine) (Heparin 5000 units/ml) 5,000 units EVERY 12 HOURS SUBQ 12/30/18 09:00 01/28/19 20:59 01/02/19 20:49 Lactulose (Cephulac) 30 gm THREE TIMES A DAY ORAL 01/02/19 09:00 02/01/19 08:59 01/03/19 08:12 Levofloxacin (Levaquin) 750 mg DAILY ORAL 01/01/19 09:00 01/08/19 08:59 01/03/19 08:11 Lorazepam (Ativan 2mg/ml 1ml) 0.5 mg Q4H PRN IV For Anxiety 01/02/19 10:54 01/09/19 10:53 01/02/19 16:40 Lorazepam (Ativan 2mg/ml 1ml) 2 mg Q1H PRN IV SEIZURES 12/30/18 11:42 01/06/19 11:41 Lorazepam (Ativan 2mg/ml 1ml) 2 mg Q6H PRN IV Agitation 12/31/18 20:00 01/06/19 19:59 6/9/19 11:02 Metronidazole (Flagyl) 250 mg Q8HR ORAL 01/01/19 14:00 01/07/19 21:59 01/03/19 06:44 Midodrine (Pro-Amatine) 5 mg THREE TIMES A DAY ORAL 01/02/19 13:00 02/01/19 12:59 01/03/19 08:11 Morphine Sulfate (Morphine Sulfate) 1 mg Q4H PRN IVP For Pain 12/30/18 04:30 01/05/19 16:29 12/30/18 07:58 Ondansetron HCl (Zofran) 4 mg Q6H PRN IVP Nausea & Vomiting 12/30/18 04:30 01/28/19 16:29 Pantoprazole (Protonix) 40 mg BID ORAL 12/30/18 09:00 01/28/19 17:59 01/03/19 08:11 Phosphorus (Phospha 250 Neutral) 500 mg THREE TIMES A DAY ORAL 01/01/19 18:00 01/31/19 17:59 01/03/19 08:11 Piperacillin Sod/ Tazobactam Sod 3.375 gm/Sodium Chloride 110 ml @ 27.5 mls/hr Q8H IVPB 01/02/19 15:00 01/09/19 14:59 01/03/19 08:32 Polyethylene Glycol (Miralax) 17 gm HSPRN PRN ORAL Constipation 12/30/18 16:30 01/28/19 16:29 Potassium Phosphate 30 mm/ Sodium Chloride 285 ml @ 47.5 mls/hr ONCE ONCE IV 01/03/19 11:30 01/03/19 17:29 Rifaximin (Xifaxan) 550 mg EVERY 12 HOURS ORAL 01/02/19 09:00 01/09/19 08:59 01/03/19 08:11 Zolpidem Tartrate (Ambien) 5 mg HSPRN PRN ORAL Insomnia 12/30/18 02:00 01/05/19 01:59 12/31/18 22:45 Assessment/Plan Problem List: (1) End stage liver disease ICD Codes: K72.90 - Hepatic failure, unspecified without coma SNOMED: 078057966 (2) Acute upper GI bleed ICD Codes: K92.2 - Gastrointestinal hemorrhage, unspecified SNOMED: 57265448 (3) Acute alcoholic intoxication ICD Codes: F10.929 - Alcohol use, unspecified with intoxication, unspecified SNOMED: 20503151 (4) Coagulopathy ICD Codes: D68.9 - Coagulation defect, unspecified SNOMED: 46722359 (5) Psychosis ICD Codes: F29 - Unspecified psychosis not due to a substance or known physiological condition SNOMED: 42779199 (6) Acute encephalopathy ICD Codes: G93.40 - Encephalopathy, unspecified SNOMED: 96474515, 107004429 (7) Alcoholic liver disease ICD Codes: K70.9 - Alcoholic liver disease, unspecified SNOMED: 59760605 Assessment/Plan: NPO GI evaluation IV fluids prbc prn might need further studies b/o increased bilirubin Marion Schneider MD Jan 03, 2019 11:35
[2019-01-03 11:47] VITALS: BP 98/60
--- NOTE | 2019-01-03 12:53 | NUR ---
*-* INSURANCE *-* UPDATED CLINICALS AND REVIEWS HAVE BEEN FAXED TO [facility]: [place] Iglesias P- [phone] F- [phone].....REVIEW/CLINICAL
--- NOTE | 2019-01-03 13:31 | Cardiac Electrophysiology PN ---
Assessment/Plan Assessment/Plan 1. Hypotension 90s and sinus tach 100s.Better with Midodrine 5 tid 2. Atypical Chest pain . EKG showed nonspecific ST-T wave abnormality. No KS. Echo EF 55% 3. Persistent hypokalemia. Corrected. No arrhythmias. 4. Severe hyponatremia. Corrected 5. ETOH Cirrhosis with Bilirubin 14. FU GI. 6. Hospice Care DW RN Subjective Subjective DC to [facility] is in progess. ERCP and paracentesis cancelled as now is hospice care Objective Last 24 Hour Vital Signs Date Time Temp Pulse Resp B/P (MAP) Pulse Ox O2 Delivery O2 Flow Rate FiO2 01/03/19 11:47 98.1 101 20 98/60 (73) 95 01/03/19 09:00 Room Air 01/03/19 07:58 96.9 110 20 108/66 (80) 92 01/03/19 04:00 97.9 110 18 109/66 (80) 100 01/03/19 04:00 108 01/03/19 00:00 99.0 112 21 91/53 (66) 93 01/03/19 00:00 111 01/02/19 21:00 Room Air 01/02/19 20:00 99.8 116 22 101/63 (76) 95 01/02/19 20:00 110 01/02/19 17:02 177 01/02/19 16:00 107 01/02/19 16:00 97.5 108 22 92/64 (73) 97 Intake and Output 01/02/19 01/03/19 18:59 06:59 Intake Total 240 ml Output Total 0 ml Balance 240 ml Intake Oral 240 ml Output Emesis 0 ml # Voids 1 2 # Bowel Movements 2 Laboratory Tests Test 01/03/19 05:15 01/03/19 08:45 01/03/19 10:20 White Blood Count 10.4 K/UL (4.8-10.8) 10.7 K/UL (4.8-10.8) Red Blood Count 2.31 M/UL (4.70-6.10) L 2.60 M/UL (4.70-6.10) L Hemoglobin 7.6 G/DL (14.2-18.0) L 8.5 G/DL (14.2-18.0) L Hematocrit 24.4 % (42.0-52.0) L 27.3 % (42.0-52.0) L Mean Corpuscular Volume 106 FL (80-99) H 105 FL (80-99) H Mean Corpuscular Hemoglobin 32.8 PG (27.0-31.0) H 32.8 PG (27.0-31.0) H Mean Corpuscular Hemoglobin Concent 31.0 G/DL (32.0-36.0) L 31.3 G/DL (32.0-36.0) L Red Cell Distribution Width 16.3 % (11.6-14.8) H 16.0 % (11.6-14.8) H Platelet Count 182 K/UL (150-450) 182 K/UL (150-450) Mean Platelet Volume 6.9 FL (6.5-10.1) 7.1 FL (6.5-10.1) Neutrophils (%) (Auto) % (45.0-75.0) 72.8 % (45.0-75.0) Lymphocytes (%) (Auto) % (20.0-45.0) 10.7 % (20.0-45.0) L Monocytes (%) (Auto) % (1.0-10.0) 9.8 % (1.0-10.0) Eosinophils (%) (Auto) % (0.0-3.0) 5.2 % (0.0-3.0) H Basophils (%) (Auto) % (0.0-2.0) 1.5 % (0.0-2.0) Alpha Fetoprotein Pending Sodium Level 141 MMOL/L (136-145) Potassium Level 3.6 MMOL/L (3.5-5.1) Chloride Level 107 MMOL/L (98-107) Carbon Dioxide Level 24 MMOL/L (21-32) Anion Gap 11 mmol/L (5-15) Blood Urea Nitrogen 11 mg/dL (7-18) Creatinine 0.8 MG/DL (0.55-1.30) Estimat Glomerular Filtration Rate > 60 mL/min (>60) Glucose Level 125 MG/DL (74-106) H Calcium Level 6.9 MG/DL (8.5-10.1) L Phosphorus Level 1.9 MG/DL (2.5-4.9) L Magnesium Level 1.5 MG/DL (1.8-2.4) L Total Bilirubin 11.3 MG/DL (0.2-1.0) H Direct Bilirubin 9.3 MG/DL (0.0-0.3) H Gamma Glutamyl Transpeptidase 1202 U/L (5-85) H Aspartate Amino Transf (AST/SGOT) 100 U/L (15-37) H Alanine Aminotransferase (ALT/SGPT) 22 U/L (12-78) Alkaline Phosphatase 332 U/L (46-116) H Total Protein 4.5 G/DL (6.4-8.2) L Albumin 1.4 G/DL (3.4-5.0) L Stool Occult Blood Pending Objective General Appearance: No apparent distress, alert HEENT: Jaundiced Cardiovascular: normal S1 and S2 and no murmur Respiratory/Chest: normal breath sounds, no respiratory distress Abdominal Exam: normal bowel sounds, non tender, soft with ascites Extremities: normal range of motion, non-tender. 1 plus edema Franck Saeed MD Jan 03, 2019 13:31
--- NOTE | 2019-01-03 13:42 | Cardiology Report ---
APPROVED REPORT EXAM: Two-dimensional and M-mode echocardiogram with Doppler and color Doppler. INDICATION Left ventricular function M-Mode DIMENSIONS IVSd0.8 (0.7-1.1cm)Left Atrium (MM)3.1 (1.6-4.0cm) LVDd5.1 (3.5-5.6cm)Aortic Root3.5 (2.0-3.7cm) PWd0.6 (0.7-1.1cm)Aortic Cusp Exc.2.3 (1.5-2.0cm) LVDs2.7 (2.5-4.0cm) PWs1.7 cm Technically difficult study due to poor acoustic windows. Study quality precludes accurate assessment of regional wall motion. Normal left ventricular chamber size, systolic function and wall motion. Left ventricular ejection fraction estimated to be 65-70 %. No evidence of left ventricular hypertrophy. Anterior Echo-free space, may be due to pericardial fat or effusion. All other cardiac chamber sizes are within normal limits. Focal aortic valve sclerosis with adequate cusp excursion. Thickened anterior mitral valve leaflets with normal excursion. Mild mitral annulus and aortic root calcification. Pulmonic valve not well visualized. Normal tricuspid valve structure. IVC is normal in size with physiological collapse. A color flow and spectral Doppler study was performed and revealed: No aortic regurgitation. No mitral regurgitation. Mitral diastolic velocities suggest mild left ventricular diastolic dysfunction (Grade I). No tricuspid regurgitation. Tricuspid systolic velocities suggests peak right ventricular systolic pressure of 9 mmHg. No pulmonic regurgitation present.
--- NOTE | 2019-01-03 14:15 | General Progress Note ---
Assessment/Plan Problem List: (1) Abdominal pain ICD Codes: R10.9 - Unspecified abdominal pain SNOMED: 41594454 (2) Anemia ICD Codes: D64.9 - Anemia, unspecified SNOMED: 923693630 (3) Alcoholic liver disease ICD Codes: K70.9 - Alcoholic liver disease, unspecified SNOMED: 26854846 (4) Acute alcoholic gastritis ICD Codes: K29.20 - Alcoholic gastritis without bleeding SNOMED: 7228837 Qualifiers: Qualified Codes: K29.20 - Alcoholic gastritis without bleeding Status: not improved, unchanged Assessment/Plan: detox gi f/u cbc bmp dc plan if clear Subjective Constitutional: Reports: weakness Allergies: Coded Allergies: No Known Allergies (Verified , 10/22/06) All Systems: reviewed and negative except above Subjective awake calm Objective Last 24 Hour Vital Signs Date Time Temp Pulse Resp B/P (MAP) Pulse Ox O2 Delivery O2 Flow Rate FiO2 01/03/19 12:00 99 01/03/19 11:47 98.1 101 20 98/60 (73) 95 01/03/19 09:00 Room Air 01/03/19 08:00 108 01/03/19 07:58 96.9 110 20 108/66 (80) 92 01/03/19 04:00 97.9 110 18 109/66 (80) 100 01/03/19 04:00 108 01/03/19 00:00 99.0 112 21 91/53 (66) 93 01/03/19 00:00 111 01/02/19 21:00 Room Air 01/02/19 20:00 99.8 116 22 101/63 (76) 95 01/02/19 20:00 110 01/02/19 17:02 177 01/02/19 16:00 107 01/02/19 16:00 97.5 108 22 92/64 (73) 97 Intake and Output 01/02/19 01/03/19 18:59 06:59 Intake Total 240 ml Output Total 0 ml Balance 240 ml Intake Oral 240 ml Output Emesis 0 ml # Voids 1 2 # Bowel Movements 2 Laboratory Tests 01/03/19 05:15: White Blood Count 10.4, Red Blood Count 2.31L, Hemoglobin 7.6L, Hematocrit 24.4L , Mean Corpuscular Volume 106H, Mean Corpuscular Hemoglobin 32.8H, Mean Corpuscular Hemoglobin Concent 31.0L, Red Cell Distribution Width 16.3H, Platelet Count 182, Mean Platelet Volume 6.9, Neutrophils (%) (Auto) , Lymphocytes (%) (Auto) , Monocytes (%) (Auto) , Eosinophils (%) (Auto) , Basophils (%) (Auto) , Alpha Fetoprotein [Pending] 01/03/19 08:45: White Blood Count 10.7, Red Blood Count 2.60L, Hemoglobin 8.5L, Hematocrit 27.3L , Mean Corpuscular Volume 105H, Mean Corpuscular Hemoglobin 32.8H, Mean Corpuscular Hemoglobin Concent 31.3L, Red Cell Distribution Width 16.0H, Platelet Count 182, Mean Platelet Volume 7.1, Neutrophils (%) (Auto) 72.8, Lymphocytes (%) (Auto) 10.7L, Monocytes (%) (Auto) 9.8, Eosinophils (%) (Auto) 5.2H, Basophils (%) (Auto) 1.5, Sodium Level 141, Potassium Level 3.6, Chloride Level 107, Carbon Dioxide Level 24, Anion Gap 11, Blood Urea Nitrogen 11, Creatinine 0.8, Estimat Glomerular Filtration Rate > 60, Glucose Level 125H, Calcium Level 6.9L, Phosphorus Level 1.9L, Magnesium Level 1.5L, Total Bilirubin 11.3H, Direct Bilirubin 9.3H, Gamma Glutamyl Transpeptidase 1202H, Aspartate Amino Transf (AST/SGOT) 100H, Alanine Aminotransferase (ALT/SGPT) 22, Alkaline Phosphatase 332H, Total Protein 4.5L, Albumin 1.4L 01/03/19 10:20: Stool Occult Blood Negative Height (Feet): 5 Height (Inches): 5.00 Weight (Pounds): 160 General Appearance: lethargic, confused EENT: normal ENT inspection Neck: normal alignment Cardiovascular: normal peripheral pulses, normal rate, regular rhythm Respiratory/Chest: chest wall non-tender, lungs clear, normal breath sounds Abdomen: normal bowel sounds, soft, distended Extremities: normal inspection Edema: no edema noted Arm (L), no edema noted Arm (R), no edema noted Leg (L), no edema noted Leg (R), no edema noted Pedal (L), no edema noted Pedal (R), no edema noted Generalized Neurologic: motor weakness Skin: normal pigmentation, warm/dry Corwin Martinez DO Jan 03, 2019 14:15
--- NOTE | 2019-01-03 14:29 | Diagnostic Imaging Report ---
Indication: Abnormal liver function tests. 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 Comparison: Abdominal ultrasound 12/30/2018 Findings: Evaluation performed for hepatic veins IVC. Duplex Doppler evaluation shows patency and normal color flow within these vessels. IMPRESSION: Widely patent IVC/hepatic veins.
--- NOTE | 2019-01-03 14:29 | Cardiology Report ---
APPROVED REPORT EKG Measurement Heart [id number] Normal sinus rhythm Low voltage QRS Nonspecific ST and T wave abnormality Prolonged QT Abnormal ECG
--- NOTE | 2019-01-03 14:35 | Infectious Diseases Prog Note ---
Assessment/Plan Assessment/Plan 58 yo male with PMHx of EtOH abuse, Depression and anxiety, SI who presented to the ED on 12/29/18 with N/V and abdominal pain. Leukocytosis and single high temp- Probable acute cholecystitis Likely due to gastritis from EtOH need -MRCP : Very limited exam, as described. Normal caliber bile ducts without definite filling defects to suggest choledocholithiasis Cholelithiasis. Gallbladder wall thickening, also described on prior sonogram. Most likely on the basis of hepatocellular derangement but the possibility of acute cholecystitis should also be considered. Ascites. Abnormal hepatic morphology, also previously described, suggestive of cirrhotic change -Abd US: Hepatomegaly. Coarsened hepatic echogenicity and surface nodularitysuggests cirrhosis. Ascites, not demonstrated previously. Cholelithiasis and gallbladder sludge, not evident previously. Gallbladder wall thickening and pericholecystic fluid, probably due to the hepatocellular derangements, but the possibility of acute cholecystitis should also be considered. Correlate with clinical findings, consider nuclear medicine hepatobiliary scan if clinically indicated. Negative for dilated bile ducts. Incidental finding small left renal cyst -CT abd/p: Chronic liver disease/cirrhosis with fatty infiltration, enlargement of the liver and stigmata of portal hypertension including ascites and splenomegaly, recanalized umbilical vein. Basilar atelectasis. Probable gallstones. Tiny bilateral renal hypodensities too small to characterize.Fecal impaction Cirrhosis EtOH abuse Hep A/B/C - Pend Depression and anxiety SI HIV (-) PLAN: - Continue Levofloxacin #2/7 and Flagyl #2/7 ( End date 01/08/19) - D/C Zosyn #5 - Monitor CBC and Temps - Monitor clinically - OK to d/c from an ID perspective but would finish a course of abx for possible cholecystitis. We will continue to follow the patient during this hospitalization. Subjective Allergies: Coded Allergies: No Known Allergies (Verified , 10/22/06) Subjective Patient awake and alert Afebrile Leukocytosis Resolved Objective Vital Signs Last 24 Hour Vital Signs Date Time Temp Pulse Resp B/P (MAP) Pulse Ox O2 Delivery O2 Flow Rate FiO2 01/03/19 12:00 99 01/03/19 11:47 98.1 101 20 98/60 (73) 95 01/03/19 09:00 Room Air 01/03/19 08:00 108 01/03/19 07:58 96.9 110 20 108/66 (80) 92 01/03/19 04:00 97.9 110 18 109/66 (80) 100 01/03/19 04:00 108 01/03/19 00:00 99.0 112 21 91/53 (66) 93 01/03/19 00:00 111 01/02/19 21:00 Room Air 01/02/19 20:00 99.8 116 22 101/63 (76) 95 01/02/19 20:00 110 01/02/19 17:02 177 01/02/19 16:00 107 01/02/19 16:00 97.5 108 22 92/64 (73) 97 Height (Feet): 5 Height (Inches): 5.00 Weight (Pounds): 160 Objective Gen: NAD, Satting well on RA HEENT: NCAT, MMM, EOMI LUNGS: CTAB, No W/C, No Accessory muscle use CARDS: RRR, S1, S2, No M/R/G, ABD: Soft, NT, ND Laboratory Tests Test 01/03/19 05:15 01/03/19 08:45 01/03/19 10:20 White Blood Count 10.4 K/UL (4.8-10.8) 10.7 K/UL (4.8-10.8) Red Blood Count 2.31 M/UL (4.70-6.10) L 2.60 M/UL (4.70-6.10) L Hemoglobin 7.6 G/DL (14.2-18.0) L 8.5 G/DL (14.2-18.0) L Hematocrit 24.4 % (42.0-52.0) L 27.3 % (42.0-52.0) L Mean Corpuscular Volume 106 FL (80-99) H 105 FL (80-99) H Mean Corpuscular Hemoglobin 32.8 PG (27.0-31.0) H 32.8 PG (27.0-31.0) H Mean Corpuscular Hemoglobin Concent 31.0 G/DL (32.0-36.0) L 31.3 G/DL (32.0-36.0) L Red Cell Distribution Width 16.3 % (11.6-14.8) H 16.0 % (11.6-14.8) H Platelet Count 182 K/UL (150-450) 182 K/UL (150-450) Mean Platelet Volume 6.9 FL (6.5-10.1) 7.1 FL (6.5-10.1) Neutrophils (%) (Auto) % (45.0-75.0) 72.8 % (45.0-75.0) Lymphocytes (%) (Auto) % (20.0-45.0) 10.7 % (20.0-45.0) L Monocytes (%) (Auto) % (1.0-10.0) 9.8 % (1.0-10.0) Eosinophils (%) (Auto) % (0.0-3.0) 5.2 % (0.0-3.0) H Basophils (%) (Auto) % (0.0-2.0) 1.5 % (0.0-2.0) Alpha Fetoprotein Pending Sodium Level 141 MMOL/L (136-145) Potassium Level 3.6 MMOL/L (3.5-5.1) Chloride Level 107 MMOL/L (98-107) Carbon Dioxide Level 24 MMOL/L (21-32) Anion Gap 11 mmol/L (5-15) Blood Urea Nitrogen 11 mg/dL (7-18) Creatinine 0.8 MG/DL (0.55-1.30) Estimat Glomerular Filtration Rate > 60 mL/min (>60) Glucose Level 125 MG/DL (74-106) H Calcium Level 6.9 MG/DL (8.5-10.1) L Phosphorus Level 1.9 MG/DL (2.5-4.9) L Magnesium Level 1.5 MG/DL (1.8-2.4) L Total Bilirubin 11.3 MG/DL (0.2-1.0) H Direct Bilirubin 9.3 MG/DL (0.0-0.3) H Gamma Glutamyl Transpeptidase 1202 U/L (5-85) H Aspartate Amino Transf (AST/SGOT) 100 U/L (15-37) H Alanine Aminotransferase (ALT/SGPT) 22 U/L (12-78) Alkaline Phosphatase 332 U/L (46-116) H Total Protein 4.5 G/DL (6.4-8.2) L Albumin 1.4 G/DL (3.4-5.0) L Stool Occult Blood Negative (NEGATIVE) Current Medications Medications (Trade) Dose Ordered Sig/Clyde Route PRN Reason Start Time Stop Time Status Last Admin Dose Admin Chlordiazepoxide (Librium) 25 mg Q6H ORAL 12/31/18 20:00 01/06/19 01:59 01/03/19 13:26 Chlorhexidine Gluconate (Sharmila-Hex 2%) 1 applic DAILY@2000 TOPIC 01/02/19 20:00 02/01/19 19:59 01/02/19 20:48 Dextrose (Dextrose 50%) 25 ml Q30M PRN IV Hypoglycemia 12/30/18 01:00 01/28/19 16:29 Dextrose (Dextrose 50%) 50 ml Q30M PRN IV Hypoglycemia 12/30/18 01:00 01/28/19 16:29 Dextrose/ Electrolytes 1,000 ml @ 75 mls/hr [id number] IV 12/31/18 17:00 01/30/19 16:59 01/02/19 15:23 Heparin Sodium (Porcine) (Heparin 5000 units/ml) 5,000 units EVERY 12 HOURS SUBQ 12/30/18 09:00 01/28/19 20:59 01/02/19 20:49 Lactulose (Cephulac) 30 gm THREE TIMES A DAY ORAL 01/02/19 09:00 02/01/19 08:59 01/03/19 08:12 Levofloxacin (Levaquin) 750 mg DAILY ORAL 01/04/19 09:00 01/08/19 08:59 Lorazepam (Ativan 2mg/ml 1ml) 0.5 mg Q4H PRN IV For Anxiety 01/02/19 10:54 01/09/19 10:53 01/02/19 16:40 Lorazepam (Ativan 2mg/ml 1ml) 2 mg Q1H PRN IV SEIZURES 12/30/18 11:42 01/06/19 11:41 Lorazepam (Ativan 2mg/ml 1ml) 2 mg Q6H PRN IV Agitation 12/31/18 20:00 01/06/19 19:59 01/01/19 11:02 Metronidazole (Flagyl) 250 mg Q8HR ORAL 01/01/19 14:00 01/07/19 21:59 01/03/19 13:30 Midodrine (Pro-Amatine) 5 mg THREE TIMES A DAY ORAL 01/02/19 13:00 02/01/19 12:59 01/03/19 13:26 Morphine Sulfate (Morphine Sulfate) 1 mg Q4H PRN IVP For Pain 12/30/18 04:30 01/05/19 16:29 12/30/18 07:58 Ondansetron HCl (Zofran) 4 mg Q6H PRN IVP Nausea & Vomiting 12/30/18 04:30 01/28/19 16:29 Pantoprazole (Protonix) 40 mg BID ORAL 12/30/18 09:00 01/28/19 17:59 01/03/19 08:11 Phosphorus (Phospha 250 Neutral) 500 mg THREE TIMES A DAY ORAL 01/01/19 18:00 01/31/19 17:59 01/03/19 13:28 Piperacillin Sod/ Tazobactam Sod 3.375 gm/Sodium Chloride 110 ml @ 27.5 mls/hr Q8H IVPB 01/02/19 15:00 01/09/19 14:59 01/03/19 08:32 Polyethylene Glycol (Miralax) 17 gm HSPRN PRN ORAL Constipation 12/30/18 16:30 01/28/19 16:29 Potassium Phosphate 30 mm/ Sodium Chloride 285 ml @ 47.5 mls/hr ONCE ONCE IV 01/03/19 11:30 01/03/19 17:29 01/03/19 12:22 Rifaximin (Xifaxan) 550 mg EVERY 12 HOURS ORAL 01/02/19 09:00 01/09/19 08:59 01/03/19 08:11 Zolpidem Tartrate (Ambien) 5 mg HSPRN PRN ORAL Insomnia 12/30/18 02:00 01/05/19 01:59 12/31/18 22:45 Devon Kingsley MD Jan 03, 2019 14:35
[2019-01-03 15:53] VITALS: BP 96/57
--- NOTE | 2019-01-03 16:30 | NUR ---
NURSE NOTES: PICC line dressing changed.
--- NOTE | 2019-01-03 17:16 | NUR ---
Social Service Note ELENA and Dr. Schneider met with patient's sisters to address the plan of care. Patient's sister Malinda [phone] brought in a copy of patient's conservatorship paper. Sister was appointed conservator in 2008. Documents placed in patient's chart. Sister's acknowledge that Malinda will provide consents for services. Dr. Schneider provided clinical information of patient's overall condition and possible treatment options. Hospice and code status addressed. ELENA provided patient's sister Beryl emotional support and she is hopeful for a miracle. ELENA discussed if patient shows improvement hospice services can be reassessed and if appropriate stopped. Patient code status changed to DNR/DNI. Family met with [facility] and documents signed for service. CM referred to Radha. Will continue to monitor and assist as needed.
--- NOTE | 2019-01-03 17:26 | NUR ---
NURSE NOTES: Spoke with Dr. Schneider regarding pt's discharge. He said to D/c the bryson upon discharge to SNF. Dr. Schneider had meeting with patient's family to discuss end of life care. Pt is to be on hospice and family changed patient's code status to DNR. Order noted and carried out. Addendum: 01/03/19 at 1728 by JENNIFER NUNEZ RN CORRECTION: D/C PICC line. Pt does not have bryson.
[2019-01-03] MEDS ORDERED: Tubing IV Secondary IV ONE (17:27)
[2019-01-03] MEDS ORDERED: NS 275ml ONE (17:27)
--- NOTE | 2019-01-03 19:28 | NUR ---
HAND-OFF: Report given to BRANNON Dodson. Pt is in stable condition; plan of care endorsed.
--- NOTE | 2019-01-03 19:30 | NUR ---
NURSE NOTES: Report received from Rivera Hines RN. Pt is resting in bed in stable condition. Pt is AOx1-2 with some confusion noted. Pt is on room air and breathing is even and unlabored. No acute distress noted. IV site is L upper arm PICC line which was inserted on 01/02 and dressing changed on 01/03. Dressing is clean, dry, and intact. Fall precautions noted to be in place. Bed is placed in lowest position with brake engaged, side rails up x3, and bed alarm on. Call light and side table placed within reach. Will continue to monitor. Family is at bedside with patient.
[2019-01-03 20:00] VITALS: BP 108/66
[2019-01-03] MEDS: Morphine Sulfate 2mg/ml Inj(IV/IM USE ONLY) IVP PRN (21:16)
[2019-01-03] MEDS: Dyna-Hex 2% Top Sol 2oz TOPIC SCH (21:17)
--- NOTE | 2019-01-03 23:59 | Neurology Progress Note ---
Interim History Interim History ROS Limited/Unobtainable: No Complaints: AMS Events: This visit was performed on January 03, [address] Dee. Interim History Continues to be alert and oriented, alternately agitated, often lethargic, Objective Physical Exam Last Vital Signs Date Time Temp Pulse Resp B/P (MAP) Pulse Ox O2 Delivery O2 Flow Rate FiO2 01/03/19 21:00 Room Air 01/03/19 16:00 101 01/03/19 15:53 97.1 20 96/57 (70) 95 Laboratory Tests Test 01/03/19 05:15 01/03/19 08:45 01/03/19 10:20 White Blood Count 10.4 K/UL (4.8-10.8) 10.7 K/UL (4.8-10.8) Red Blood Count 2.31 M/UL (4.70-6.10) L 2.60 M/UL (4.70-6.10) L Hemoglobin 7.6 G/DL (14.2-18.0) L 8.5 G/DL (14.2-18.0) L Hematocrit 24.4 % (42.0-52.0) L 27.3 % (42.0-52.0) L Mean Corpuscular Volume 106 FL (80-99) H 105 FL (80-99) H Mean Corpuscular Hemoglobin 32.8 PG (27.0-31.0) H 32.8 PG (27.0-31.0) H Mean Corpuscular Hemoglobin Concent 31.0 G/DL (32.0-36.0) L 31.3 G/DL (32.0-36.0) L Red Cell Distribution Width 16.3 % (11.6-14.8) H 16.0 % (11.6-14.8) H Platelet Count 182 K/UL (150-450) 182 K/UL (150-450) Mean Platelet Volume 6.9 FL (6.5-10.1) 7.1 FL (6.5-10.1) Neutrophils (%) (Auto) % (45.0-75.0) 72.8 % (45.0-75.0) Lymphocytes (%) (Auto) % (20.0-45.0) 10.7 % (20.0-45.0) L Monocytes (%) (Auto) % (1.0-10.0) 9.8 % (1.0-10.0) Eosinophils (%) (Auto) % (0.0-3.0) 5.2 % (0.0-3.0) H Basophils (%) (Auto) % (0.0-2.0) 1.5 % (0.0-2.0) Alpha Fetoprotein Pending Sodium Level 141 MMOL/L (136-145) Potassium Level 3.6 MMOL/L (3.5-5.1) Chloride Level 107 MMOL/L (98-107) Carbon Dioxide Level 24 MMOL/L (21-32) Anion Gap 11 mmol/L (5-15) Blood Urea Nitrogen 11 mg/dL (7-18) Creatinine 0.8 MG/DL (0.55-1.30) Estimat Glomerular Filtration Rate > 60 mL/min (>60) Glucose Level 125 MG/DL (74-106) H Calcium Level 6.9 MG/DL (8.5-10.1) L Phosphorus Level 1.9 MG/DL (2.5-4.9) L Magnesium Level 1.5 MG/DL (1.8-2.4) L Total Bilirubin 11.3 MG/DL (0.2-1.0) H Direct Bilirubin 9.3 MG/DL (0.0-0.3) H Gamma Glutamyl Transpeptidase 1202 U/L (5-85) H Aspartate Amino Transf (AST/SGOT) 100 U/L (15-37) H Alanine Aminotransferase (ALT/SGPT) 22 U/L (12-78) Alkaline Phosphatase 332 U/L (46-116) H Total Protein 4.5 G/DL (6.4-8.2) L Albumin 1.4 G/DL (3.4-5.0) L Stool Occult Blood Negative (NEGATIVE) General: other Head: other Neck: no rigidity EENT: other Neurologic Exam Mental Status: other Speech: other Language: other Cranial Nerve II: other Cranial Nerves III, IV, : other Cranial Nerve V: other Cranial Nerve VII: other Cranial Nerve VIII: other Cranial Nerve IX: other Cranial Nerve X: other Cranial Nerve XI: other Cranial Nerve XII: other Motor System: other Sensory: other Coordination: other - More appropriately verbal in conversation at times with depressed affect and difficulty following instructions during examination. Stance: other - Patient remains weak throughout all extremities with non focal exam. He is more appropriate in conversation today but remains non focal and encephalopathic Gait: other Objective Patient is alert and knows that he is at [facility], he knows his circumstances and knows the day of the week - His pupils are PERRL and briskly reactive at this time. He does not cooperate with full exam still, despite multiple previous visits. He remains non focal and weak throughout Impression/Recommendations Problems: (1) Acute upper GI bleed (2) Fecal impaction in rectum (3) Esophagitis (4) Alcoholic liver disease (5) Elevated LFTs (6) Acute alcoholic gastritis (7) Psychosis (8) Acute alcoholic intoxication (9) Acute encephalopathy (10) Hypocalcemia Status: not improved, unchanged Recommendations Ammonia improved today - continue Lactulose Continue Q4 Neuro obs CIWA protocol PT Frequent reorientation Maintenance of good sleep hygiene with nonessential care withheld overnights Consider additional enteral feeding methods Replace / Replete Lytes HgB>8 Psych recommendations regarding best non-sedating behavioral medications with least hepatic excretion at this time. Anika Pettit N.P. Jan 03, 2019 23:59
[2019-01-04] VITALS: BP 96/63
[2019-01-04] MEDS: D5 1/2NS w/KCl 40meq 1000ml 1,000 ML IV SCH ×2 (01:18→15:15)
[2019-01-04] MEDS: chlordiazePOXIDE 25mg Cap ORAL SCH ×4 (01:18→20:33)
[2019-01-04 04:00] VITALS: BP 93/58
[2019-01-04 05:27] LABS: BASOPHILS % (AUTO) 1.8 % (0.0-2.0); HEMATOCRIT 26.2 % (42.0-52.0); HEMOGLOBIN 8.4 G/DL (14.2-18.0); LYMPHOCYTES % (AUTO) 9.3 % (20.0-45.0); MEAN CORPUSCULAR VOLUME 103 FL (80-99); MONOCYTES % (AUTO) 10.2 % (1.0-10.0); NEUTROPHILS % (AUTO) 74.7 % (45.0-75.0); PLATELET COUNT 183 K/UL (150-450); RED BLOOD COUNT 2.54 M/UL (4.70-6.10); WHITE BLOOD COUNT 10.9 K/UL (4.8-10.8)
[2019-01-04 05:44] LABS: AMMONIA 61 umol/L (11-32)
[2019-01-04 05:50] LABS: ALANINE AMINOTRANSFERASE 19 U/L (12-78); ALBUMIN 1.3 G/DL (3.4-5.0); ALBUMIN/GLOBULIN RATIO 0.4 (1.0-2.7); ALKALINE PHOSPHATASE 334 U/L (46-116); ANION GAP 7 mmol/L (5-15); ASPARTATE AMINO TRANSFERASE 89 U/L (15-37); BLOOD UREA NITROGEN 9 mg/dL (7-18); CALCIUM 6.4 MG/DL (8.5-10.1); CARBON DIOXIDE 25 MMOL/L (21-32); CHLORIDE 105 MMOL/L (98-107); CREATININE 0.8 MG/DL (0.55-1.30); POTASSIUM 3.7 MMOL/L (3.5-5.1); SODIUM 137 MMOL/L (136-145)
[2019-01-04] MEDS: metroNIDAZOLE 250mg tab ORAL SCH ×3 (05:53→21:51)
[2019-01-04 06:11] LABS: BILIRUBIN,DIRECT 10.2 MG/DL (0.0-0.3)
--- NOTE | 2019-01-04 07:05 | NUR ---
NURSE NOTES: I received the patient resting comfortably in bed. Patient did not display any signs of distress or SOB. Bed in the lowest, locked position and call light within reach. I will continue to monitor the patient and implement care.
--- NOTE | 2019-01-04 07:30 | NUR ---
HAND-OFF: Report given to Dayanara Le RN. Pt is resting in bed in stable condition. No acute distress noted. Endorsed plan of care.
[2019-01-04 08:00] VITALS: BP 100/68
--- NOTE | 2019-01-04 08:19 | General Progress Note ---
Assessment/Plan Problem List: (1) Abdominal pain ICD Codes: R10.9 - Unspecified abdominal pain SNOMED: 14970343 (2) Anemia ICD Codes: D64.9 - Anemia, unspecified SNOMED: 712316491 (3) Alcoholic liver disease ICD Codes: K70.9 - Alcoholic liver disease, unspecified SNOMED: 53688039 (4) Acute alcoholic gastritis ICD Codes: K29.20 - Alcoholic gastritis without bleeding SNOMED: 2182758 Qualifiers: Qualified Codes: K29.20 - Alcoholic gastritis without bleeding Status: not improved, unchanged Assessment/Plan: detox gi f/u cbc bmp dc plan if clear Subjective Constitutional: Reports: weakness Allergies: Coded Allergies: No Known Allergies (Verified , 10/22/06) All Systems: reviewed and negative except above Subjective awake calm Objective Last 24 Hour Vital Signs Date Time Temp Pulse Resp B/P (MAP) Pulse Ox O2 Delivery O2 Flow Rate FiO2 01/04/19 04:00 103 01/04/19 04:00 99.1 106 18 93/58 (70) 94 01/04/19 00:00 100.8 108 20 96/63 (74) 95 01/04/19 00:00 112 01/03/19 21:00 Room Air 01/03/19 20:00 98 01/03/19 20:00 96.9 110 21 108/66 (80) 95 01/03/19 16:00 101 01/03/19 15:53 97.1 103 20 96/57 (70) 95 01/03/19 12:00 99 01/03/19 11:47 98.1 101 20 98/60 (73) 95 01/03/19 09:00 Room Air Intake and Output 01/03/19 01/04/19 19:00 07:00 Intake Total 610 ml Balance 610 ml Intake Oral 610 ml # Voids 2 2 # Bowel Movements 2 1 Laboratory Tests 01/03/19 08:45: White Blood Count 10.7, Red Blood Count 2.60L, Hemoglobin 8.5L, Hematocrit 27.3L , Mean Corpuscular Volume 105H, Mean Corpuscular Hemoglobin 32.8H, Mean Corpuscular Hemoglobin Concent 31.3L, Red Cell Distribution Width 16.0H, Platelet Count 182, Mean Platelet Volume 7.1, Neutrophils (%) (Auto) 72.8, Lymphocytes (%) (Auto) 10.7L, Monocytes (%) (Auto) 9.8, Eosinophils (%) (Auto) 5.2H, Basophils (%) (Auto) 1.5, Sodium Level 141, Potassium Level 3.6, Chloride Level 107, Carbon Dioxide Level 24, Anion Gap 11, Blood Urea Nitrogen 11, Creatinine 0.8, Estimat Glomerular Filtration Rate > 60, Glucose Level 125H, Calcium Level 6.9L, Phosphorus Level 1.9L, Magnesium Level 1.5L, Total Bilirubin 11.3H, Direct Bilirubin 9.3H, Gamma Glutamyl Transpeptidase 1202H, Aspartate Amino Transf (AST/SGOT) 100H, Alanine Aminotransferase (ALT/SGPT) 22, Alkaline Phosphatase 332H, Total Protein 4.5L, Albumin 1.4L 01/03/19 10:20: Stool Occult Blood Negative 01/04/19 05:00: White Blood Count 10.9H, Red Blood Count 2.54L, Hemoglobin 8.4L, Hematocrit 26.2L, Mean Corpuscular Volume 103H, Mean Corpuscular Hemoglobin 32.9H, Mean Corpuscular Hemoglobin Concent 31.9L, Red Cell Distribution Width 16.0H, Platelet Count 183, Mean Platelet Volume 6.6, Neutrophils (%) (Auto) 74.7, Lymphocytes (%) (Auto) 9.3L, Monocytes (%) (Auto) 10.2H, Eosinophils (%) (Auto) 4.0H, Basophils (%) (Auto) 1.8, Sodium Level 137, Potassium Level 3.7, Chloride Level 105, Carbon Dioxide Level 25, Anion Gap 7, Blood Urea Nitrogen 9, Creatinine 0.8, Estimat Glomerular Filtration Rate > 60, Glucose Level 130H, Calcium Level 6.4L, Total Bilirubin 12.0H, Direct Bilirubin 10.2H, Aspartate Amino Transf (AST/SGOT) 89H, Alanine Aminotransferase (ALT/SGPT) 19, Alkaline Phosphatase 334H, Total Protein 4.4L, Albumin 1.3L, Ammonia 61H, Globulin 3.1, Albumin/Globulin Ratio 0.4L Height (Feet): 5 Height (Inches): 5.00 Weight (Pounds): 188 General Appearance: lethargic EENT: normal ENT inspection Neck: normal alignment Cardiovascular: normal peripheral pulses, normal rate, regular rhythm Respiratory/Chest: chest wall non-tender, lungs clear, normal breath sounds Abdomen: soft, hypoactive bowel sounds, distended Extremities: normal inspection Edema: no edema noted Arm (L), no edema noted Arm (R), no edema noted Leg (L), no edema noted Leg (R), no edema noted Pedal (L), no edema noted Pedal (R), no edema noted Generalized Neurologic: responsive, motor weakness Skin: normal pigmentation, warm/dry Corwin Martinez DO Jan 04, 2019 08:19
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
[2019-01-04] MEDS: Lactulose 20gm/30ml UDC ORAL SCH ×3 (09:30→17:38)
[2019-01-04] MEDS: Levofloxacin 750mg tab ORAL SCH (09:31)
[2019-01-04] MEDS: Midodrine 10mg tab ORAL SCH ×3 (09:31→17:37)
[2019-01-04] MEDS: Phospha 250 Neutral tab ORAL SCH ×3 (09:31→17:37)
[2019-01-04] MEDS: Heparin 5000 units/ml inj SUBQ SCH ×2 (09:32→20:34)
--- NOTE | 2019-01-04 09:44 | GI Progress Note ---
Assessment/Plan Problems: (1) Acute alcoholic gastritis ICD Codes: K29.20 - Alcoholic gastritis without bleeding SNOMED: 3360214 Qualifiers: Qualified Codes: K29.20 - Alcoholic gastritis without bleeding (2) Elevated LFTs ICD Codes: R94.5 - Abnormal results of liver function studies SNOMED: 901076370, 072543635 (3) Alcoholic liver disease ICD Codes: K70.9 - Alcoholic liver disease, unspecified SNOMED: 36292521 (4) Esophagitis ICD Codes: K20.9 - Esophagitis, unspecified SNOMED: 43345905 (5) Acute encephalopathy ICD Codes: G93.40 - Encephalopathy, unspecified SNOMED: 55408432, 751264002 (6) Psychosis ICD Codes: F29 - Unspecified psychosis not due to a substance or known physiological condition SNOMED: 89979963 (7) Acute alcoholic intoxication ICD Codes: F10.929 - Alcohol use, unspecified with intoxication, unspecified SNOMED: 55433238 Status: unchanged Status Narrative Discussed with Dr. Rich. Assessment/Plan maging noted, cirrhosis rising bili US with doppler r/o Budd-Chiari Syndrome>> negative OB stool negative Stable H&H discriminant function calculated, patient will benefit from glucocorticoid therap start Prednisone 40mg PO daily x 5days lactulose + xifaxan>>> improving ammonia level monitor H&H, prn transfusions bowel regimen ppi fu labs fu neurology recs Will benefit from endoscopy to evaluate for esophageal varices The patient was seen and examined at bedside and all new and available data was reviewed in the patients chart. I agree with the above findings, impression and plan. (Patient seen earlier today. Signature stamp does not reflect patient encounter time.). - Jarod Rich MD Subjective Gastrointestinal/Abdominal: Reports: no symptoms Objective Last 24 Hour Vital Signs Date Time Temp Pulse Resp B/P (MAP) Pulse Ox O2 Delivery O2 Flow Rate FiO2 01/04/19 08:00 97.0 100 19 100/68 (79) 97 01/04/19 04:00 103 01/04/19 04:00 99.1 106 18 93/58 (70) 94 01/04/19 00:00 100.8 108 20 96/63 (74) 95 01/04/19 00:00 112 01/03/19 21:00 Room Air 01/03/19 20:00 98 01/03/19 20:00 96.9 110 21 108/66 (80) 95 01/03/19 16:00 101 01/03/19 15:53 97.1 103 20 96/57 (70) 95 01/03/19 12:00 99 01/03/19 11:47 98.1 101 20 98/60 (73) 95 Intake and Output 01/03/19 01/04/19 19:00 07:00 Intake Total 610 ml Balance 610 ml Intake Oral 610 ml # Voids 2 2 # Bowel Movements 2 1 Laboratory Tests Test 01/03/19 10:20 01/04/19 05:00 Stool Occult Blood Negative (NEGATIVE) White Blood Count 10.9 K/UL (4.8-10.8) H Red Blood Count 2.54 M/UL (4.70-6.10) L Hemoglobin 8.4 G/DL (14.2-18.0) L Hematocrit 26.2 % (42.0-52.0) L Mean Corpuscular Volume 103 FL (80-99) H Mean Corpuscular Hemoglobin 32.9 PG (27.0-31.0) H Mean Corpuscular Hemoglobin Concent 31.9 G/DL (32.0-36.0) L Red Cell Distribution Width 16.0 % (11.6-14.8) H Platelet Count 183 K/UL (150-450) Mean Platelet Volume 6.6 FL (6.5-10.1) Neutrophils (%) (Auto) 74.7 % (45.0-75.0) Lymphocytes (%) (Auto) 9.3 % (20.0-45.0) L Monocytes (%) (Auto) 10.2 % (1.0-10.0) H Eosinophils (%) (Auto) 4.0 % (0.0-3.0) H Basophils (%) (Auto) 1.8 % (0.0-2.0) Sodium Level 137 MMOL/L (136-145) Potassium Level 3.7 MMOL/L (3.5-5.1) Chloride Level 105 MMOL/L (98-107) Carbon Dioxide Level 25 MMOL/L (21-32) Anion Gap 7 mmol/L (5-15) Blood Urea Nitrogen 9 mg/dL (7-18) Creatinine 0.8 MG/DL (0.55-1.30) Estimat Glomerular Filtration Rate > 60 mL/min (>60) Glucose Level 130 MG/DL (74-106) H Calcium Level 6.4 MG/DL (8.5-10.1) L Total Bilirubin 12.0 MG/DL (0.2-1.0) H Direct Bilirubin 10.2 MG/DL (0.0-0.3) H Aspartate Amino Transf (AST/SGOT) 89 U/L (15-37) H Alanine Aminotransferase (ALT/SGPT) 19 U/L (12-78) Alkaline Phosphatase 334 U/L (46-116) H Ammonia 61 umol/L (11-32) H Total Protein 4.4 G/DL (6.4-8.2) L Albumin 1.3 G/DL (3.4-5.0) L Globulin 3.1 g/dL Albumin/Globulin Ratio 0.4 (1.0-2.7) L Height (Feet): 5 Height (Inches): 5.00 Weight (Pounds): 188 General Appearance: WD/WN, no apparent distress, alert Cardiovascular: normal rate Respiratory/Chest: normal breath sounds, no respiratory distress Abdominal Exam: normal bowel sounds, non tender, soft Extremities: non-tender Luisana Craft NP Jan 04, 2019 09:44
--- NOTE | 2019-01-04 11:02 | Pulmonology Progress Note ---
Assessment/Plan Problems: (1) End stage liver disease (2) Acute upper GI bleed (3) Acute alcoholic intoxication (4) Coagulopathy (5) Psychosis (6) Acute encephalopathy (7) Alcoholic liver disease Assessment/Plan awaiting discharge to [facility] under hospice care. symptomatic treatment lactulose f/u Ammonia level. consider comfort care and DNR Subjective ROS Limited/Unobtainable: No Interval Events: no new complains HEENT: Repors: no symptoms Allergies: Coded Allergies: No Known Allergies (Verified , 10/22/06) Objective Last 24 Hour Vital Signs Date Time Temp Pulse Resp B/P (MAP) Pulse Ox O2 Delivery O2 Flow Rate FiO2 01/04/19 09:00 Nasal Cannula 2.0 01/04/19 08:00 97.0 100 19 100/68 (79) 97 01/04/19 07:53 101 01/04/19 04:00 103 01/04/19 04:00 99.1 106 18 93/58 (70) 94 01/04/19 00:00 100.8 108 20 96/63 (74) 95 01/04/19 00:00 112 01/03/19 21:00 Room Air 01/03/19 20:00 98 01/03/19 20:00 96.9 110 21 108/66 (80) 95 01/03/19 16:00 101 01/03/19 15:53 97.1 103 20 96/57 (70) 95 01/03/19 12:00 99 01/03/19 11:47 98.1 101 20 98/60 (73) 95 Intake and Output 01/03/19 01/04/19 19:00 07:00 Intake Total 610 ml Balance 610 ml Intake Oral 610 ml # Voids 2 2 # Bowel Movements 2 1 General Appearance: WD/WN HEENT: normocephalic, atraumatic Respiratory/Chest: chest wall non-tender, lungs clear Cardiovascular: normal peripheral pulses, regular rhythm Abdomen: normal bowel sounds, no organomegaly Laboratory Tests 01/04/19 05:00: White Blood Count 10.9H, Red Blood Count 2.54L, Hemoglobin 8.4L, Hematocrit 26.2L, Mean Corpuscular Volume 103H, Mean Corpuscular Hemoglobin 32.9H, Mean Corpuscular Hemoglobin Concent 31.9L, Red Cell Distribution Width 16.0H, Platelet Count 183, Mean Platelet Volume 6.6, Neutrophils (%) (Auto) 74.7, Lymphocytes (%) (Auto) 9.3L, Monocytes (%) (Auto) 10.2H, Eosinophils (%) (Auto) 4.0H, Basophils (%) (Auto) 1.8, Sodium Level 137, Potassium Level 3.7, Chloride Level 105, Carbon Dioxide Level 25, Anion Gap 7, Blood Urea Nitrogen 9, Creatinine 0.8, Estimat Glomerular Filtration Rate > 60, Glucose Level 130H, Calcium Level 6.4L, Total Bilirubin 12.0H, Direct Bilirubin 10.2H, Aspartate Amino Transf (AST/SGOT) 89H, Alanine Aminotransferase (ALT/SGPT) 19, Alkaline Phosphatase 334H, Ammonia 61H, Total Protein 4.4L, Albumin 1.3L, Globulin 3.1, Albumin/Globulin Ratio 0.4L Current Medications Medications (Trade) Dose Ordered Sig/Clyde Route PRN Reason Start Time Stop Time Status Last Admin Dose Admin Chlordiazepoxide (Librium) 25 mg Q6H ORAL 12/31/18 20:00 01/06/19 01:59 01/04/19 09:30 Chlorhexidine Gluconate (Sharmila-Hex 2%) 1 applic DAILY@2000 TOPIC 01/02/19 20:00 02/01/19 19:59 01/03/19 21:17 Dextrose (Dextrose 50%) 25 ml Q30M PRN IV Hypoglycemia 12/30/18 01:00 01/28/19 16:29 Dextrose (Dextrose 50%) 50 ml Q30M PRN IV Hypoglycemia 12/30/18 01:00 01/28/19 16:29 Dextrose/ Electrolytes 1,000 ml @ 75 mls/hr [id number] IV 12/31/18 17:00 01/30/19 16:59 01/04/19 01:18 Heparin Sodium (Porcine) (Heparin 5000 units/ml) 5,000 units EVERY 12 HOURS SUBQ 12/30/18 09:00 01/28/19 20:59 01/04/19 09:32 Lactulose (Cephulac) 30 gm THREE TIMES A DAY ORAL 01/02/19 09:00 02/01/19 08:59 01/04/19 09:30 Levofloxacin (Levaquin) 750 mg DAILY ORAL 01/04/19 09:00 01/08/19 08:59 01/04/19 09:31 Lorazepam (Ativan 2mg/ml 1ml) 0.5 mg Q4H PRN IV For Anxiety 01/02/19 10:54 01/09/19 10:53 01/02/19 16:40 Lorazepam (Ativan 2mg/ml 1ml) 2 mg Q1H PRN IV SEIZURES 12/30/18 11:42 01/06/19 11:41 Lorazepam (Ativan 2mg/ml 1ml) 2 mg Q6H PRN IV Agitation 12/31/18 20:00 01/06/19 19:59 01/01/19 11:02 Metronidazole (Flagyl) 250 mg Q8HR ORAL 01/01/19 14:00 01/07/19 21:59 01/04/19 05:53 Midodrine (Pro-Amatine) 5 mg THREE TIMES A DAY ORAL 01/02/19 13:00 02/01/19 12:59 01/04/19 09:31 Morphine Sulfate (Morphine Sulfate) 1 mg Q4H PRN IVP For Pain 12/30/18 04:30 01/05/19 16:29 12/30/18 07:58 Ondansetron HCl (Zofran) 4 mg Q6H PRN IVP Nausea & Vomiting 12/30/18 04:30 01/28/19 16:29 Pantoprazole (Protonix) 40 mg BID ORAL 12/30/18 09:00 01/28/19 17:59 01/04/19 09:31 Phosphorus (Phospha 250 Neutral) 500 mg THREE TIMES A DAY ORAL 01/01/19 18:00 01/31/19 17:59 01/04/19 09:31 Polyethylene Glycol (Miralax) 17 gm HSPRN PRN ORAL Constipation 12/30/18 16:30 01/28/19 16:29 Rifaximin (Xifaxan) 550 mg EVERY 12 HOURS ORAL 01/02/19 09:00 01/09/19 08:59 01/04/19 09:30 Zolpidem Tartrate (Ambien) 5 mg HSPRN PRN ORAL Insomnia 12/30/18 02:00 01/05/19 01:59 12/31/18 22:45 Marion Schneider MD Jan 04, 2019 11:02
--- NOTE | 2019-01-04 11:29 | NUR ---
DISCHARGE PLANNING DISCHARGE ORDER NOTED [facility] IS ACTIVELY SEEKING AN ACCEPTING RETIREMENT REFERRED TO THE FOLLOWING: [facility] ~ [facility] ~ UNABLE TO ACCEPT [facility] ~ [facility] ~ UNABLE TO ACCEPT [facility] ~ PER [facility] ~ [place] BEDS [facility] ~ [facility] ~ DECLINED TO ACCEPT [facility] ~ [facility] ~ HE WILL CALL BACK Addendum: 01/04/19 at 1227 by SHANIQUA ARECHIGA LVN LVN [facility] ~ [facility] ~ UNABLE TO ACCEPT Addendum: 01/04/19 at 1228 by SHANIQUA ARECHIGA LVN LVN [facility] ~ [facility]NA [facility] ~ UNABLE TO ACCEPT
--- NOTE | 2019-01-04 11:38 | Infectious Diseases Prog Note ---
Assessment/Plan Assessment/Plan 58 yo male with PMHx of EtOH abuse, Depression and anxiety, SI who presented to the ED on 12/29/18 with N/V and abdominal pain. Leukocytosis and single high temp- Probable acute cholecystitis Likely due to gastritis from EtOH need -MRCP : Very limited exam, as described. Normal caliber bile ducts without definite filling defects to suggest choledocholithiasis Cholelithiasis. Gallbladder wall thickening, also described on prior sonogram. Most likely on the basis of hepatocellular derangement but the possibility of acute cholecystitis should also be considered. Ascites. Abnormal hepatic morphology, also previously described, suggestive of cirrhotic change -Abd US: Hepatomegaly. Coarsened hepatic echogenicity and surface nodularitysuggests cirrhosis. Ascites, not demonstrated previously. Cholelithiasis and gallbladder sludge, not evident previously. Gallbladder wall thickening and pericholecystic fluid, probably due to the hepatocellular derangements, but the possibility of acute cholecystitis should also be considered. Correlate with clinical findings, consider nuclear medicine hepatobiliary scan if clinically indicated. Negative for dilated bile ducts. Incidental finding small left renal cyst -CT abd/p: Chronic liver disease/cirrhosis with fatty infiltration, enlargement of the liver and stigmata of portal hypertension including ascites and splenomegaly, recanalized umbilical vein. Basilar atelectasis. Probable gallstones. Tiny bilateral renal hypodensities too small to characterize.Fecal impaction Cirrhosis EtOH abuse Hep A/B/C - Pend Depression and anxiety SI HIV (-) PLAN: - Continue Levofloxacin #3/7 and Flagyl #3/7 ( End date 01/08/19) - D/C Zosyn #5 - Monitor CBC and Temps - Monitor clinically - OK to d/c from an ID perspective but would finish a course of abx for possible cholecystitis. We will continue to follow the patient during this hospitalization. Subjective Allergies: Coded Allergies: No Known Allergies (Verified , 10/22/06) Subjective Patient awake and alert Afebrile Leukocytosis Mild Objective Vital Signs Last 24 Hour Vital Signs Date Time Temp Pulse Resp B/P (MAP) Pulse Ox O2 Delivery O2 Flow Rate FiO2 01/04/19 09:00 Nasal Cannula 2.0 01/04/19 08:00 97.0 100 19 100/68 (79) 97 01/04/19 07:53 101 01/04/19 04:00 103 01/04/19 04:00 99.1 106 18 93/58 (70) 94 01/04/19 00:00 100.8 108 20 96/63 (74) 95 01/04/19 00:00 112 01/03/19 21:00 Room Air 01/03/19 20:00 98 01/03/19 20:00 96.9 110 21 108/66 (80) 95 01/03/19 16:00 101 01/03/19 15:53 97.1 103 20 96/57 (70) 95 01/03/19 12:00 99 01/03/19 11:47 98.1 101 20 98/60 (73) 95 Height (Feet): 5 Height (Inches): 5.00 Weight (Pounds): 188 Objective Gen: NAD, Satting well on RA, Depressed HEENT: NCAT, MMM, EOMI LUNGS: CTAB, No W/C, No Accessory muscle use CARDS: RRR, S1, S2, No M/R/G, ABD: Soft, NT, ND Laboratory Tests Test 01/04/19 05:00 White Blood Count 10.9 K/UL (4.8-10.8) H Red Blood Count 2.54 M/UL (4.70-6.10) L Hemoglobin 8.4 G/DL (14.2-18.0) L Hematocrit 26.2 % (42.0-52.0) L Mean Corpuscular Volume 103 FL (80-99) H Mean Corpuscular Hemoglobin 32.9 PG (27.0-31.0) H Mean Corpuscular Hemoglobin Concent 31.9 G/DL (32.0-36.0) L Red Cell Distribution Width 16.0 % (11.6-14.8) H Platelet Count 183 K/UL (150-450) Mean Platelet Volume 6.6 FL (6.5-10.1) Neutrophils (%) (Auto) 74.7 % (45.0-75.0) Lymphocytes (%) (Auto) 9.3 % (20.0-45.0) L Monocytes (%) (Auto) 10.2 % (1.0-10.0) H Eosinophils (%) (Auto) 4.0 % (0.0-3.0) H Basophils (%) (Auto) 1.8 % (0.0-2.0) Sodium Level 137 MMOL/L (136-145) Potassium Level 3.7 MMOL/L (3.5-5.1) Chloride Level 105 MMOL/L (98-107) Carbon Dioxide Level 25 MMOL/L (21-32) Anion Gap 7 mmol/L (5-15) Blood Urea Nitrogen 9 mg/dL (7-18) Creatinine 0.8 MG/DL (0.55-1.30) Estimat Glomerular Filtration Rate > 60 mL/min (>60) Glucose Level 130 MG/DL (74-106) H Calcium Level 6.4 MG/DL (8.5-10.1) L Total Bilirubin 12.0 MG/DL (0.2-1.0) H Direct Bilirubin 10.2 MG/DL (0.0-0.3) H Aspartate Amino Transf (AST/SGOT) 89 U/L (15-37) H Alanine Aminotransferase (ALT/SGPT) 19 U/L (12-78) Alkaline Phosphatase 334 U/L (46-116) H Ammonia 61 umol/L (11-32) H Total Protein 4.4 G/DL (6.4-8.2) L Albumin 1.3 G/DL (3.4-5.0) L Globulin 3.1 g/dL Albumin/Globulin Ratio 0.4 (1.0-2.7) L Current Medications Medications (Trade) Dose Ordered Sig/Clyde Route PRN Reason Start Time Stop Time Status Last Admin Dose Admin Chlordiazepoxide (Librium) 25 mg Q6H ORAL 12/31/18 20:00 01/06/19 01:59 01/04/19 09:30 Chlorhexidine Gluconate (Sharmila-Hex 2%) 1 applic DAILY@2000 TOPIC 01/02/19 20:00 02/01/19 19:59 01/03/19 21:17 Dextrose (Dextrose 50%) 25 ml Q30M PRN IV Hypoglycemia 12/30/18 01:00 01/28/19 16:29 Dextrose (Dextrose 50%) 50 ml Q30M PRN IV Hypoglycemia 12/30/18 01:00 01/28/19 16:29 Dextrose/ Electrolytes 1,000 ml @ 75 mls/hr [id number] IV 12/31/18 17:00 01/30/19 16:59 01/04/19 01:18 Heparin Sodium (Porcine) (Heparin 5000 units/ml) 5,000 units EVERY 12 HOURS SUBQ 12/30/18 09:00 01/28/19 20:59 01/04/19 09:32 Lactulose (Cephulac) 30 gm THREE TIMES A DAY ORAL 01/02/19 09:00 02/01/19 08:59 01/04/19 09:30 Levofloxacin (Levaquin) 750 mg DAILY ORAL 01/04/19 09:00 01/08/19 08:59 01/04/19 09:31 Lorazepam (Ativan 2mg/ml 1ml) 0.5 mg Q4H PRN IV For Anxiety 01/02/19 10:54 01/09/19 10:53 01/02/19 16:40 Lorazepam (Ativan 2mg/ml 1ml) 2 mg Q1H PRN IV SEIZURES 12/30/18 11:42 01/06/19 11:41 Lorazepam (Ativan 2mg/ml 1ml) 2 mg Q6H PRN IV Agitation 12/31/18 20:00 01/06/19 19:59 01/01/19 11:02 Metronidazole (Flagyl) 250 mg Q8HR ORAL 01/01/19 14:00 01/07/19 21:59 01/04/19 05:53 Midodrine (Pro-Amatine) 5 mg THREE TIMES A DAY ORAL 01/02/19 13:00 02/01/19 12:59 01/04/19 09:31 Morphine Sulfate (Morphine Sulfate) 1 mg Q4H PRN IVP For Pain 12/30/18 04:30 01/05/19 16:29 12/30/18 07:58 Ondansetron HCl (Zofran) 4 mg Q6H PRN IVP Nausea & Vomiting 12/30/18 04:30 01/28/19 16:29 Pantoprazole (Protonix) 40 mg BID ORAL 12/30/18 09:00 01/28/19 17:59 01/04/19 09:31 Phosphorus (Phospha 250 Neutral) 500 mg THREE TIMES A DAY ORAL 01/01/19 18:00 01/31/19 17:59 01/04/19 09:31 Polyethylene Glycol (Miralax) 17 gm HSPRN PRN ORAL Constipation 12/30/18 16:30 01/28/19 16:29 Rifaximin (Xifaxan) 550 mg EVERY 12 HOURS ORAL 01/02/19 09:00 01/09/19 08:59 01/04/19 09:30 Zolpidem Tartrate (Ambien) 5 mg HSPRN PRN ORAL Insomnia 12/30/18 02:00 01/05/19 01:59 12/31/18 22:45 Devon Kingsley MD Jan 04, 2019 11:38
--- NOTE | 2019-01-04 11:52 | Cardiac Electrophysiology PN ---
Assessment/Plan Assessment/Plan 1. Hypotension 90s and sinus tach 100s. Continue Midodrine 5 tid 2. Atypical Chest pain . EKG showed nonspecific ST-T wave abnormality. No PR. Echo EF 55% 3. Persistent hypokalemia. Corrected. No arrhythmias. 4. Severe hyponatremia. Corrected 5. ETOH Cirrhosis with Bilirubin 14. FU GI. 6. Hospice Care DW RN Awaiting bed for DC to hospice [facility] Subjective Subjective ERCP and paracentesis cancelled as now is hospice care.DC pending today Objective Last 24 Hour Vital Signs Date Time Temp Pulse Resp B/P (MAP) Pulse Ox O2 Delivery O2 Flow Rate FiO2 01/04/19 09:00 Nasal Cannula 2.0 01/04/19 08:00 97.0 100 19 100/68 (79) 97 01/04/19 07:53 101 01/04/19 04:00 103 01/04/19 04:00 99.1 106 18 93/58 (70) 94 01/04/19 00:00 100.8 108 20 96/63 (74) 95 01/04/19 00:00 112 01/03/19 21:00 Room Air 01/03/19 20:00 98 01/03/19 20:00 96.9 110 21 108/66 (80) 95 01/03/19 16:00 101 01/03/19 15:53 97.1 103 20 96/57 (70) 95 01/03/19 12:00 99 Intake and Output 01/03/19 01/04/19 18:59 06:59 Intake Total 610 ml Balance 610 ml Intake Oral 610 ml # Voids 2 2 # Bowel Movements 2 1 Laboratory Tests Test 01/04/19 05:00 White Blood Count 10.9 K/UL (4.8-10.8) H Red Blood Count 2.54 M/UL (4.70-6.10) L Hemoglobin 8.4 G/DL (14.2-18.0) L Hematocrit 26.2 % (42.0-52.0) L Mean Corpuscular Volume 103 FL (80-99) H Mean Corpuscular Hemoglobin 32.9 PG (27.0-31.0) H Mean Corpuscular Hemoglobin Concent 31.9 G/DL (32.0-36.0) L Red Cell Distribution Width 16.0 % (11.6-14.8) H Platelet Count 183 K/UL (150-450) Mean Platelet Volume 6.6 FL (6.5-10.1) Neutrophils (%) (Auto) 74.7 % (45.0-75.0) Lymphocytes (%) (Auto) 9.3 % (20.0-45.0) L Monocytes (%) (Auto) 10.2 % (1.0-10.0) H Eosinophils (%) (Auto) 4.0 % (0.0-3.0) H Basophils (%) (Auto) 1.8 % (0.0-2.0) Sodium Level 137 MMOL/L (136-145) Potassium Level 3.7 MMOL/L (3.5-5.1) Chloride Level 105 MMOL/L (98-107) Carbon Dioxide Level 25 MMOL/L (21-32) Anion Gap 7 mmol/L (5-15) Blood Urea Nitrogen 9 mg/dL (7-18) Creatinine 0.8 MG/DL (0.55-1.30) Estimat Glomerular Filtration Rate > 60 mL/min (>60) Glucose Level 130 MG/DL (74-106) H Calcium Level 6.4 MG/DL (8.5-10.1) L Total Bilirubin 12.0 MG/DL (0.2-1.0) H Direct Bilirubin 10.2 MG/DL (0.0-0.3) H Aspartate Amino Transf (AST/SGOT) 89 U/L (15-37) H Alanine Aminotransferase (ALT/SGPT) 19 U/L (12-78) Alkaline Phosphatase 334 U/L (46-116) H Ammonia 61 umol/L (11-32) H Total Protein 4.4 G/DL (6.4-8.2) L Albumin 1.3 G/DL (3.4-5.0) L Globulin 3.1 g/dL Albumin/Globulin Ratio 0.4 (1.0-2.7) L Objective General Appearance: No apparent distress, alert HEENT: Jaundiced Cardiovascular: normal S1 and S2 and no murmur Respiratory/Chest: normal breath sounds, no respiratory distress Abdominal Exam: normal bowel sounds, non tender, soft with ascites Extremities: normal range of motion, non-tender. 1 plus edema Franck Saeed MD Jan 04, 2019 11:52
[2019-01-04 12:00] VITALS: BP 86/51
--- NOTE | 2019-01-04 12:34 | NUR ---
CASE MANAGEMENT:REVIEW 01/04/19 SI: ACUTE ENCEPHALOPATHY ALCOHOLIC LIVER DISEASE 97.0 100 19 100/68 97% ON 2L/NC WBC+10.9 H/H-8.4/26.2 IS: IV ZOSYN Q8HRS IVF@75/HR FLAGYL PO Q8HRS LEVAQUIN PO QD MIDODRINE PO TID LACTULOSE PO TID XIFAXAN PO Q12 PHOSPHORUS PO TID LIBRIUM PO Q6 HEPARIN SQ Q12 : TELEMETRY STATUS PLAN: UNABLE TO FIND AN ACCEPTING SNF OF YET
--- NOTE | 2019-01-04 13:04 | NUR ---
*-* INSURANCE *-* UPDATED CLINICALS HAVE BEEN FAXED TO [facility] NCM: DOMINGUEZ Iglesias P- [phone] F- [phone].....REVIEW/CLINICAL
--- NOTE | 2019-01-04 13:20 | Nephrology Progress Note ---
Assessment/Plan Problem List: (1) Alcoholic liver disease (2) Anemia (3) Electrolyte disorder Assessment Acute Alcoholic Gastritis / Encephalopathy - Intoxication Alcoholic Hepatitis Anemia Hypokalemia Psych disease Plan labs noted has PICC now K and Mag and Phos supplement as needed Monitor lytes / Lfts per orders Subjective ROS Limited/Unobtainable: No Constitutional: Reports: malaise, weakness Objective Objective Last 24 Hour Vital Signs Date Time Temp Pulse Resp B/P (MAP) Pulse Ox O2 Delivery O2 Flow Rate FiO2 01/04/19 12:00 99.5 99 18 86/51 (63) 98 01/04/19 09:00 Nasal Cannula 2.0 01/04/19 08:00 97.0 100 19 100/68 (79) 97 01/04/19 07:53 101 01/04/19 04:00 103 01/04/19 04:00 99.1 106 18 93/58 (70) 94 01/04/19 00:00 100.8 108 20 96/63 (74) 95 01/04/19 00:00 112 01/03/19 21:00 Room Air 01/03/19 20:00 98 01/03/19 20:00 96.9 110 21 108/66 (80) 95 01/03/19 16:00 101 01/03/19 15:53 97.1 103 20 96/57 (70) 95 Intake and Output 01/03/19 01/04/19 18:59 06:59 Intake Total 610 ml Balance 610 ml Intake Oral 610 ml # Voids 2 2 # Bowel Movements 2 1 Laboratory Tests 01/04/19 05:00: White Blood Count 10.9H, Red Blood Count 2.54L, Hemoglobin 8.4L, Hematocrit 26.2L, Mean Corpuscular Volume 103H, Mean Corpuscular Hemoglobin 32.9H, Mean Corpuscular Hemoglobin Concent 31.9L, Red Cell Distribution Width 16.0H, Platelet Count 183, Mean Platelet Volume 6.6, Neutrophils (%) (Auto) 74.7, Lymphocytes (%) (Auto) 9.3L, Monocytes (%) (Auto) 10.2H, Eosinophils (%) (Auto) 4.0H, Basophils (%) (Auto) 1.8, Sodium Level 137, Potassium Level 3.7, Chloride Level 105, Carbon Dioxide Level 25, Anion Gap 7, Blood Urea Nitrogen 9, Creatinine 0.8, Estimat Glomerular Filtration Rate > 60, Glucose Level 130H, Calcium Level 6.4L, Total Bilirubin 12.0H, Direct Bilirubin 10.2H, Aspartate Amino Transf (AST/SGOT) 89H, Alanine Aminotransferase (ALT/SGPT) 19, Alkaline Phosphatase 334H, Ammonia 61H, Total Protein 4.4L, Albumin 1.3L, Globulin 3.1, Albumin/Globulin Ratio 0.4L Height (Feet): 5 Height (Inches): 5.00 Weight (Pounds): 188 General Appearance: no apparent distress Cardiovascular: normal rate Respiratory/Chest: decreased breath sounds Abdomen: distended Objective no change Leonard Bautista MD Jan 04, 2019 13:20
[2019-01-04 16:00] VITALS: BP 96/62
--- NOTE | 2019-01-04 19:31 | NUR ---
HAND-OFF: Report given to BRANNON Wayne.
[2019-01-04 20:00] VITALS: BP 89/56
[2019-01-04] MEDS: Dyna-Hex 2% Top Sol 2oz TOPIC SCH (20:33)
--- NOTE | 2019-01-04 20:46 | NUR ---
NURSE NOTES: Received pt and report from BRANNON Philip. Observe pt resting in bed with both eyes closed. cardiac monitor is in placed, IV site in tact, asymptomatic, and patent. Bed is in the lowest position and locked. Call light within reach. No signs/symptoms of acute distress noted at this time. Will continue plan of care.
--- NOTE | 2019-01-04 20:57 | Neurology Progress Note ---
Interim History Interim History ROS Limited/Unobtainable: No Complaints: AMS Events: This visit was performed on January 04, [address] Dee. Interim History Ammonia, improving, patient alert and still with generalized, non focal weakness Objective Physical Exam Last Vital Signs Date Time Temp Pulse Resp B/P (MAP) Pulse Ox O2 Delivery O2 Flow Rate FiO2 01/04/19 18:07 98.8 01/04/19 16:00 60 19 96/62 (73) 97 01/04/19 09:00 Nasal Cannula 2.0 Laboratory Tests Test 01/04/19 05:00 White Blood Count 10.9 K/UL (4.8-10.8) H Red Blood Count 2.54 M/UL (4.70-6.10) L Hemoglobin 8.4 G/DL (14.2-18.0) L Hematocrit 26.2 % (42.0-52.0) L Mean Corpuscular Volume 103 FL (80-99) H Mean Corpuscular Hemoglobin 32.9 PG (27.0-31.0) H Mean Corpuscular Hemoglobin Concent 31.9 G/DL (32.0-36.0) L Red Cell Distribution Width 16.0 % (11.6-14.8) H Platelet Count 183 K/UL (150-450) Mean Platelet Volume 6.6 FL (6.5-10.1) Neutrophils (%) (Auto) 74.7 % (45.0-75.0) Lymphocytes (%) (Auto) 9.3 % (20.0-45.0) L Monocytes (%) (Auto) 10.2 % (1.0-10.0) H Eosinophils (%) (Auto) 4.0 % (0.0-3.0) H Basophils (%) (Auto) 1.8 % (0.0-2.0) Sodium Level 137 MMOL/L (136-145) Potassium Level 3.7 MMOL/L (3.5-5.1) Chloride Level 105 MMOL/L (98-107) Carbon Dioxide Level 25 MMOL/L (21-32) Anion Gap 7 mmol/L (5-15) Blood Urea Nitrogen 9 mg/dL (7-18) Creatinine 0.8 MG/DL (0.55-1.30) Estimat Glomerular Filtration Rate > 60 mL/min (>60) Glucose Level 130 MG/DL (74-106) H Calcium Level 6.4 MG/DL (8.5-10.1) L Total Bilirubin 12.0 MG/DL (0.2-1.0) H Direct Bilirubin 10.2 MG/DL (0.0-0.3) H Aspartate Amino Transf (AST/SGOT) 89 U/L (15-37) H Alanine Aminotransferase (ALT/SGPT) 19 U/L (12-78) Alkaline Phosphatase 334 U/L (46-116) H Ammonia 61 umol/L (11-32) H Total Protein 4.4 G/DL (6.4-8.2) L Albumin 1.3 G/DL (3.4-5.0) L Globulin 3.1 g/dL Albumin/Globulin Ratio 0.4 (1.0-2.7) L General: other Head: other Neck: no rigidity EENT: other - Visible right nasal polyp, skin tag, lesion - Neurologic Exam Mental Status: awake, alert, other Speech: other Language: other Cranial Nerve II: other Cranial Nerves III, IV, : other Cranial Nerve V: other Cranial Nerve VII: other Cranial Nerve VIII: other Cranial Nerve IX: other Cranial Nerve X: no voice hoarseness, other Cranial Nerve XI: SCM symmetric, other Cranial Nerve XII: tongue midline, other Motor System: no involuntary movement, other Sensory: normal pinprick, normal light touch, normal position sense, normal graphesthesia, other Coordination: other - More appropriately verbal in conversation at times with depressed affect and difficulty following instructions during examination. Deep Tendon Reflexes: 1+ bicep (L), 1+ bicep (R), 1+ tricep (L), 1+ tricep (R) , 1+ brachioradialis (L), 1+ brachioradialis (R), 1+ knee (L), 1+ knee (R), 1+ ankle (L), 1+ ankle (R) Stance: other - Patient remains weak throughout all extremities with non focal exam. He is more appropriate in conversation today but remains non focal and encephalopathic Gait: other Objective Patient is alert and oriented to circumstances with intermittent episodes of agitation, apparently stood out of bed previously,. He remains non focal and weak throughout Impression/Recommendations Problems: (1) Acute upper GI bleed (2) Fecal impaction in rectum (3) Esophagitis (4) Alcoholic liver disease (5) Elevated LFTs (6) Acute alcoholic gastritis (7) Psychosis (8) Acute alcoholic intoxication (9) Acute encephalopathy (10) Hypocalcemia Status: stable, progressing Recommendations Ammonia improved today - continue Lactulose Continue Q4 Neuro obs CIWA protocol PT Frequent reorientation Maintenance of good sleep hygiene with nonessential care withheld overnights Consider additional enteral feeding methods HgB>8 Replace / Replete lytes Psych recommendations regarding best non-sedating behavioral medications with least hepatic excretion at this time. Anika Pettit N.P. Jan 04, 2019 20:57
[2019-01-05] VITALS: BP 92/61
[2019-01-05] MEDS: chlordiazePOXIDE 25mg Cap ORAL SCH ×3 (02:05→15:20)
[2019-01-05] MEDS: D5 1/2NS w/KCl 40meq 1000ml 1,000 ML IV SCH (03:15)
[2019-01-05 04:00] VITALS: BP 94/58
[2019-01-05] MEDS: metroNIDAZOLE 250mg tab ORAL SCH ×3 (05:15→21:46)
--- NOTE | 2019-01-05 06:00 | NUR ---
NURSE NOTES: Pt refused morning labs. Will try again after breakfast. Endorsed to BRANNON Quintero.
--- NOTE | 2019-01-05 07:33 | NUR ---
HAND-OFF: Report given to BRANNON Quintero.
--- NOTE | 2019-01-05 08:12 | NUR ---
NURSE NOTES: pt awake alert, no distress. no sob. no c/o pain. call light within reach. bed in lowest position, locked.
[2019-01-05 08:36] LABS: BASOPHILS % (AUTO) 1.5 % (0.0-2.0); EOSINOPHILS % (AUTO) 4.1 % (0.0-3.0); HEMATOCRIT 29.3 % (42.0-52.0); HEMOGLOBIN 9.2 G/DL (14.2-18.0); LYMPHOCYTES % (AUTO) 7.6 % (20.0-45.0); MEAN CORPUSCULAR VOLUME 104 FL (80-99); MONOCYTES % (AUTO) 8.2 % (1.0-10.0); NEUTROPHILS % (AUTO) 78.6 % (45.0-75.0); PLATELET COUNT 219 K/UL (150-450); RED BLOOD COUNT 2.83 M/UL (4.70-6.10); RED CELL DISTRIBUTION WIDTH 15.4 % (11.6-14.8); WHITE BLOOD COUNT 12.9 K/UL (4.8-10.8)
[2019-01-05 08:38] VITALS: BP 104/79
[2019-01-05] MEDS: Heparin 5000 units/ml inj SUBQ SCH (08:38)
[2019-01-05] MEDS: Phospha 250 Neutral tab ORAL SCH ×2 (08:39→12:53)
[2019-01-05] MEDS: Levofloxacin 750mg tab ORAL SCH (08:39)
[2019-01-05] MEDS: Lactulose 20gm/30ml UDC ORAL SCH ×2 (08:39→12:53)
[2019-01-05] MEDS: Midodrine 10mg tab ORAL SCH ×2 (08:40→12:53)
[2019-01-05 08:48] LABS: ANION GAP 9 mmol/L (5-15); BLOOD UREA NITROGEN 10 mg/dL (7-18); CALCIUM 6.8 MG/DL (8.5-10.1); CARBON DIOXIDE 22 MMOL/L (21-32); CHLORIDE 107 MMOL/L (98-107); CREATININE 0.8 MG/DL (0.55-1.30); POTASSIUM 3.9 MMOL/L (3.5-5.1); SODIUM 138 MMOL/L (136-145)
[2019-01-05 08:58] LABS: PHOSPHORUS 1.7 MG/DL (2.5-4.9)
[2019-01-05 09:56] LABS: ALANINE AMINOTRANSFERASE 22 U/L (12-78); ALBUMIN 1.4 G/DL (3.4-5.0); ALKALINE PHOSPHATASE 342 U/L (46-116); ASPARTATE AMINO TRANSFERASE 79 U/L (15-37); BILIRUBIN,DIRECT 12.5 MG/DL (0.0-0.3); BILIRUBIN,TOTAL 14.3 MG/DL (0.2-1.0)
--- NOTE | 2019-01-05 10:04 | Cardiac Electrophysiology PN ---
Assessment/Plan Assessment/Plan 1. Hypotension 90s and sinus tach 100s. Better on Midodrine 5 tid 2. Atypical Chest pain . EKG showed nonspecific ST-T wave abnormality. No [place]. Echo EF 55% 3. Persistent hypokalemia. Corrected. No arrhythmias. 4. Severe hyponatremia. Corrected 5. ETOH Cirrhosis with Bilirubin 14. FU GI. 6. Hospice Care DW RN DC tele Subjective Subjective Is hospice care.DC SNIF placement today. On tele. Objective Last 24 Hour Vital Signs Date Time Temp Pulse Resp B/P (MAP) Pulse Ox O2 Delivery O2 Flow Rate FiO2 01/05/19 09:00 Room Air 01/05/19 08:38 98.0 109 18 104/79 (87) 98 01/05/19 07:36 100 01/05/19 04:00 103 01/05/19 04:00 98.0 99 18 94/58 (70) 98 01/05/19 00:00 97.4 102 18 92/61 (71) 97 01/05/19 00:00 101 01/04/19 21:00 Room Air 01/04/19 20:00 98.5 105 18 89/56 (67) 95 01/04/19 20:00 109 01/04/19 18:07 98.8 01/04/19 16:00 100.8 60 19 96/62 (73) 97 01/04/19 15:34 103 01/04/19 12:00 99.5 99 18 86/51 (63) 98 01/04/19 11:49 103 Intake and Output 01/04/19 01/05/19 19:00 07:00 Intake Total 1940 ml 1085 ml Balance 1940 ml 1085 ml Intake Oral 1040 ml 260 ml IV Total 900 ml 825 ml # Voids 4 1 # Bowel Movements 3 3 Laboratory Tests Test 01/05/19 08:20 White Blood Count 12.9 K/UL (4.8-10.8) H Red Blood Count 2.83 M/UL (4.70-6.10) L Hemoglobin 9.2 G/DL (14.2-18.0) L Hematocrit 29.3 % (42.0-52.0) L Mean Corpuscular Volume 104 FL (80-99) H Mean Corpuscular Hemoglobin 32.3 PG (27.0-31.0) H Mean Corpuscular Hemoglobin Concent 31.2 G/DL (32.0-36.0) L Red Cell Distribution Width 15.4 % (11.6-14.8) H Platelet Count 219 K/UL (150-450) Mean Platelet Volume 6.8 FL (6.5-10.1) Neutrophils (%) (Auto) 78.6 % (45.0-75.0) H Lymphocytes (%) (Auto) 7.6 % (20.0-45.0) L Monocytes (%) (Auto) 8.2 % (1.0-10.0) Eosinophils (%) (Auto) 4.1 % (0.0-3.0) H Basophils (%) (Auto) 1.5 % (0.0-2.0) Sodium Level 138 MMOL/L (136-145) Potassium Level 3.9 MMOL/L (3.5-5.1) Chloride Level 107 MMOL/L (98-107) Carbon Dioxide Level 22 MMOL/L (21-32) Anion Gap 9 mmol/L (5-15) Blood Urea Nitrogen 10 mg/dL (7-18) Creatinine 0.8 MG/DL (0.55-1.30) Estimat Glomerular Filtration Rate > 60 mL/min (>60) Glucose Level 153 MG/DL (74-106) H Uric Acid 2.3 MG/DL (2.6-7.2) L Calcium Level 6.8 MG/DL (8.5-10.1) L Phosphorus Level 1.7 MG/DL (2.5-4.9) L Magnesium Level 1.6 MG/DL (1.8-2.4) L Total Bilirubin 14.3 MG/DL (0.2-1.0) H Direct Bilirubin 12.5 MG/DL (0.0-0.3) H Aspartate Amino Transf (AST/SGOT) 79 U/L (15-37) H Alanine Aminotransferase (ALT/SGPT) 22 U/L (12-78) Alkaline Phosphatase 342 U/L (46-116) H Total Protein 4.9 G/DL (6.4-8.2) L Albumin 1.4 G/DL (3.4-5.0) L Objective General Appearance: No apparent distress, alert HEENT: Jaundiced Cardiovascular: normal S1 and S2 and no murmur Respiratory/Chest: normal breath sounds, no respiratory distress Abdominal Exam: normal bowel sounds, non tender, soft with ascites Extremities: normal range of motion, non-tender. 1 plus edema Franck Saeed MD Jan 05, 2019 10:04
--- NOTE | 2019-01-05 10:06 | GI Progress Note ---
Assessment/Plan Problems: (1) Acute alcoholic gastritis ICD Codes: K29.20 - Alcoholic gastritis without bleeding SNOMED: 3364998 Qualifiers: Qualified Codes: K29.20 - Alcoholic gastritis without bleeding (2) Elevated LFTs ICD Codes: R94.5 - Abnormal results of liver function studies SNOMED: 555491849, 626139373 (3) Alcoholic liver disease ICD Codes: K70.9 - Alcoholic liver disease, unspecified SNOMED: 03268775 (4) Esophagitis ICD Codes: K20.9 - Esophagitis, unspecified SNOMED: 44182378 (5) Acute encephalopathy ICD Codes: G93.40 - Encephalopathy, unspecified SNOMED: 84827893, 743111751 (6) Psychosis ICD Codes: F29 - Unspecified psychosis not due to a substance or known physiological condition SNOMED: 14513738 (7) Acute alcoholic intoxication ICD Codes: F10.929 - Alcohol use, unspecified with intoxication, unspecified SNOMED: 80114939 Status: stable Status Narrative Discussed with Dr. Rich. Assessment/Plan Imaging noted, cirrhosis rising bili US with doppler r/o Budd-Chiari Syndrome>> negative OB stool negative Stable H&H discriminant function calculated, patient will benefit from glucocorticoid therapy Prednisone 40mg PO daily x 5 days lactulose + xifaxan>>> improving ammonia level monitor H&H, prn transfusions bowel regimen ppi fu labs fu neurology recs Will benefit from endoscopy to evaluate for esophageal varices as outpatient The patient was seen and examined at bedside and all new and available data was reviewed in the patients chart. I agree with the above findings, impression and plan. (Patient seen earlier today. Signature stamp does not reflect patient encounter time.). - Jarod Rich MD The patient was seen and examined at bedside and all new and available data was reviewed in the patients chart. I agree with the above findings, impression and plan. (Patient seen earlier today. Signature stamp does not reflect patient encounter time.). - Jarod Rich MD Subjective Gastrointestinal/Abdominal: Reports: no symptoms Objective Last 24 Hour Vital Signs Date Time Temp Pulse Resp B/P (MAP) Pulse Ox O2 Delivery O2 Flow Rate FiO2 01/05/19 09:00 Room Air 01/05/19 08:38 98.0 109 18 104/79 (87) 98 01/05/19 07:36 100 01/05/19 04:00 103 01/05/19 04:00 98.0 99 18 94/58 (70) 98 01/05/19 00:00 97.4 102 18 92/61 (71) 97 01/05/19 00:00 101 01/04/19 21:00 Room Air 01/04/19 20:00 98.5 105 18 89/56 (67) 95 01/04/19 20:00 109 01/04/19 18:07 98.8 01/04/19 16:00 100.8 60 19 96/62 (73) 97 01/04/19 15:34 103 01/04/19 12:00 99.5 99 18 86/51 (63) 98 01/04/19 11:49 103 Intake and Output 01/04/19 01/05/19 19:00 07:00 Intake Total 1940 ml 1085 ml Balance 1940 ml 1085 ml Intake Oral 1040 ml 260 ml IV Total 900 ml 825 ml # Voids 4 1 # Bowel Movements 3 3 Laboratory Tests Test 01/05/19 08:20 White Blood Count 12.9 K/UL (4.8-10.8) H Red Blood Count 2.83 M/UL (4.70-6.10) L Hemoglobin 9.2 G/DL (14.2-18.0) L Hematocrit 29.3 % (42.0-52.0) L Mean Corpuscular Volume 104 FL (80-99) H Mean Corpuscular Hemoglobin 32.3 PG (27.0-31.0) H Mean Corpuscular Hemoglobin Concent 31.2 G/DL (32.0-36.0) L Red Cell Distribution Width 15.4 % (11.6-14.8) H Platelet Count 219 K/UL (150-450) Mean Platelet Volume 6.8 FL (6.5-10.1) Neutrophils (%) (Auto) 78.6 % (45.0-75.0) H Lymphocytes (%) (Auto) 7.6 % (20.0-45.0) L Monocytes (%) (Auto) 8.2 % (1.0-10.0) Eosinophils (%) (Auto) 4.1 % (0.0-3.0) H Basophils (%) (Auto) 1.5 % (0.0-2.0) Sodium Level 138 MMOL/L (136-145) Potassium Level 3.9 MMOL/L (3.5-5.1) Chloride Level 107 MMOL/L (98-107) Carbon Dioxide Level 22 MMOL/L (21-32) Anion Gap 9 mmol/L (5-15) Blood Urea Nitrogen 10 mg/dL (7-18) Creatinine 0.8 MG/DL (0.55-1.30) Estimat Glomerular Filtration Rate > 60 mL/min (>60) Glucose Level 153 MG/DL (74-106) H Uric Acid 2.3 MG/DL (2.6-7.2) L Calcium Level 6.8 MG/DL (8.5-10.1) L Phosphorus Level 1.7 MG/DL (2.5-4.9) L Magnesium Level 1.6 MG/DL (1.8-2.4) L Total Bilirubin 14.3 MG/DL (0.2-1.0) H Direct Bilirubin 12.5 MG/DL (0.0-0.3) H Aspartate Amino Transf (AST/SGOT) 79 U/L (15-37) H Alanine Aminotransferase (ALT/SGPT) 22 U/L (12-78) Alkaline Phosphatase 342 U/L (46-116) H Total Protein 4.9 G/DL (6.4-8.2) L Albumin 1.4 G/DL (3.4-5.0) L Height (Feet): 5 Height (Inches): 5.00 Weight (Pounds): 188 General Appearance: no apparent distress, alert Cardiovascular: normal rate Respiratory/Chest: normal breath sounds, no respiratory distress Abdominal Exam: normal bowel sounds, non tender, soft Extremities: non-tender Luisana Craft NP Jan 05, 2019 10:06
--- NOTE | 2019-01-05 10:12 | NUR ---
CASE MANAGEMENT:REVIEW 01/05/19 SI: ACUTE ENCEPHALOPATHY ALCOHOLIC LIVER DISEASE 98.0 109 18 104/79 98% RA WBC+12.9 TBILI+14.3 DBILI+12.5 IS: IVF@75/HR FLAGYL PO Q8HRS LEVAQUIN PO QD MIDODRINE PO TID LACTULOSE PO TID XIFAXAN PO Q12 PHOSPHORUS PO TID LIBRIUM PO Q6 HEPARIN SQ Q12 : TELEMETRY STATUS PLAN: UNABLE TO FIND AN ACCEPTING SNF OF YET....NEED HELP FROM [facility]
--- NOTE | 2019-01-05 10:13 | Pulmonology Progress Note ---
Assessment/Plan Problems: (1) End stage liver disease (2) Acute upper GI bleed (3) Acute alcoholic intoxication (4) Coagulopathy (5) Psychosis (6) Acute encephalopathy (7) Alcoholic liver disease Assessment/Plan awaiting discharge to [facility] under hospice care. symptomatic treatment lactulose f/u Ammonia level. consider comfort care and DNR Subjective Constitutional: Reports: no symptoms HEENT: Repors: no symptoms Allergies: Coded Allergies: No Known Allergies (Verified , 10/22/06) Objective Last 24 Hour Vital Signs Date Time Temp Pulse Resp B/P (MAP) Pulse Ox O2 Delivery O2 Flow Rate FiO2 01/05/19 09:00 Room Air 01/05/19 08:38 98.0 109 18 104/79 (87) 98 01/05/19 07:36 100 01/05/19 04:00 103 01/05/19 04:00 98.0 99 18 94/58 (70) 98 01/05/19 00:00 97.4 102 18 92/61 (71) 97 01/05/19 00:00 101 01/04/19 21:00 Room Air 01/04/19 20:00 98.5 105 18 89/56 (67) 95 01/04/19 20:00 109 01/04/19 18:07 98.8 01/04/19 16:00 100.8 60 19 96/62 (73) 97 01/04/19 15:34 103 01/04/19 12:00 99.5 99 18 86/51 (63) 98 01/04/19 11:49 103 Intake and Output 01/04/19 01/05/19 19:00 07:00 Intake Total 1940 ml 1085 ml Balance 1940 ml 1085 ml Intake Oral 1040 ml 260 ml IV Total 900 ml 825 ml # Voids 4 1 # Bowel Movements 3 3 General Appearance: WD/WN HEENT: normocephalic Cardiovascular: normal peripheral pulses, normal rate Abdomen: normal bowel sounds, soft, non tender Genitourinary: normal external genitalia Extremities: no cyanosis Skin: no rash, no lesions Laboratory Tests 01/05/19 08:20: White Blood Count 12.9H, Red Blood Count 2.83L, Hemoglobin 9.2L, Hematocrit 29.3L, Mean Corpuscular Volume 104H, Mean Corpuscular Hemoglobin 32.3H, Mean Corpuscular Hemoglobin Concent 31.2L, Red Cell Distribution Width 15.4H, Platelet Count 219, Mean Platelet Volume 6.8, Neutrophils (%) (Auto) 78.6H, Lymphocytes (%) (Auto) 7.6L, Monocytes (%) (Auto) 8.2, Eosinophils (%) (Auto) 4.1H, Basophils (%) (Auto) 1.5, Sodium Level 138, Potassium Level 3.9, Chloride Level 107, Carbon Dioxide Level 22, Anion Gap 9, Blood Urea Nitrogen 10, Creatinine 0.8, Estimat Glomerular Filtration Rate > 60, Glucose Level 153H, Uric Acid 2.3L, Calcium Level 6.8L, Phosphorus Level 1.7L, Magnesium Level 1.6L , Total Bilirubin 14.3H, Direct Bilirubin 12.5H, Aspartate Amino Transf (AST/ SGOT) 79H, Alanine Aminotransferase (ALT/SGPT) 22, Alkaline Phosphatase 342H, Total Protein 4.9L, Albumin 1.4L Current Medications Medications (Trade) Dose Ordered Sig/Clyde Route PRN Reason Start Time Stop Time Status Last Admin Dose Admin Acetaminophen (Tylenol) 650 mg Q4H PRN ORAL Mild Pain/Temp > 100.5 01/04/19 17:00 02/03/19 16:59 01/04/19 17:37 Chlordiazepoxide (Librium) 25 mg Q6H ORAL 12/31/18 20:00 01/06/19 01:59 01/05/19 08:00 Chlorhexidine Gluconate (Sharmila-Hex 2%) 1 applic DAILY@2000 TOPIC 01/02/19 20:00 02/01/19 19:59 01/04/19 20:33 Dextrose (Dextrose 50%) 25 ml Q30M PRN IV Hypoglycemia 12/30/18 01:00 01/28/19 16:29 Dextrose (Dextrose 50%) 50 ml Q30M PRN IV Hypoglycemia 12/30/18 01:00 01/28/19 16:29 Dextrose/ Electrolytes 1,000 ml @ 75 mls/hr [id number] IV 12/31/18 17:00 01/30/19 16:59 01/05/19 03:15 Heparin Sodium (Porcine) (Heparin 5000 units/ml) 5,000 units EVERY 12 HOURS SUBQ 12/30/18 09:00 01/28/19 20:59 01/05/19 08:38 Lactulose (Cephulac) 30 gm THREE TIMES A DAY ORAL 01/02/19 09:00 02/01/19 08:59 01/05/19 08:39 Levofloxacin (Levaquin) 750 mg DAILY ORAL 01/04/19 09:00 01/08/19 08:59 01/05/19 08:39 Lorazepam (Ativan 2mg/ml 1ml) 0.5 mg Q4H PRN IV For Anxiety 01/02/19 10:54 01/09/19 10:53 01/02/19 16:40 Lorazepam (Ativan 2mg/ml 1ml) 2 mg Q1H PRN IV SEIZURES 12/30/18 11:42 01/06/19 11:41 Lorazepam (Ativan 2mg/ml 1ml) 2 mg Q6H PRN IV Agitation 12/31/18 20:00 01/06/19 19:59 01/01/19 11:02 Metronidazole (Flagyl) 250 mg Q8HR ORAL 01/01/19 14:00 01/08/19 13:59 01/05/19 05:15 Midodrine (Pro-Amatine) 5 mg THREE TIMES A DAY ORAL 01/02/19 13:00 02/01/19 12:59 01/05/19 08:40 Morphine Sulfate (Morphine Sulfate) 1 mg Q4H PRN IVP For Pain 12/30/18 04:30 01/05/19 16:29 12/30/18 07:58 Ondansetron HCl (Zofran) 4 mg Q6H PRN IVP Nausea & Vomiting 12/30/18 04:30 01/28/19 16:29 Pantoprazole (Protonix) 40 mg BID ORAL 12/30/18 09:00 01/28/19 17:59 01/05/19 08:40 Phosphorus (Phospha 250 Neutral) 500 mg THREE TIMES A DAY ORAL 01/01/19 18:00 01/31/19 17:59 01/05/19 08:39 Polyethylene Glycol (Miralax) 17 gm HSPRN PRN ORAL Constipation 12/30/18 16:30 01/28/19 16:29 Prednisone (predniSONE) 40 mg DAILY ORAL 01/05/19 09:00 01/09/19 09:01 01/05/19 08:39 Rifaximin (Xifaxan) 550 mg EVERY 12 HOURS ORAL 01/02/19 09:00 01/09/19 08:59 01/05/19 08:40 Marion Schneider MD Jan 05, 2019 10:13
[2019-01-05] MEDS: LORazepam Inj 2mg/ml 1ml IV PRN (10:17)
[2019-01-05 11:20] VITALS: BP 97/66
--- NOTE | 2019-01-05 11:48 | Infectious Diseases Prog Note ---
Assessment/Plan Assessment/Plan 58 yo male with PMHx of EtOH abuse, Depression and anxiety, SI who presented to the ED on 12/29/18 with N/V and abdominal pain. Leukocytosis and single high temp- Probable acute cholecystitis Likely due to gastritis from EtOH need -MRCP : Very limited exam, as described. Normal caliber bile ducts without definite filling defects to suggest choledocholithiasis Cholelithiasis. Gallbladder wall thickening, also described on prior sonogram. Most likely on the basis of hepatocellular derangement but the possibility of acute cholecystitis should also be considered. Ascites. Abnormal hepatic morphology, also previously described, suggestive of cirrhotic change -Abd US: Hepatomegaly. Coarsened hepatic echogenicity and surface nodularitysuggests cirrhosis. Ascites, not demonstrated previously. Cholelithiasis and gallbladder sludge, not evident previously. Gallbladder wall thickening and pericholecystic fluid, probably due to the hepatocellular derangements, but the possibility of acute cholecystitis should also be considered. Correlate with clinical findings, consider nuclear medicine hepatobiliary scan if clinically indicated. Negative for dilated bile ducts. Incidental finding small left renal cyst -CT abd/p: Chronic liver disease/cirrhosis with fatty infiltration, enlargement of the liver and stigmata of portal hypertension including ascites and splenomegaly, recanalized umbilical vein. Basilar atelectasis. Probable gallstones. Tiny bilateral renal hypodensities too small to characterize.Fecal impaction Cirrhosis EtOH abuse Hep A/B/C - Pend Depression and anxiety SI HIV (-) PLAN: - Continue Levofloxacin #4/7 and Flagyl #4/7 ( End date 01/08/19) - D/C Zosyn #5 - Monitor CBC and Temps - Monitor clinically - OK to d/c from an ID perspective but would finish a course of abx for possible cholecystitis. We will continue to follow the patient during this hospitalization. Subjective Allergies: Coded Allergies: No Known Allergies (Verified , 10/22/06) Subjective Patient awake and alert Afebrile since yesterday afternoon continued Leukocytosis Objective Vital Signs Last 24 Hour Vital Signs Date Time Temp Pulse Resp B/P (MAP) Pulse Ox O2 Delivery O2 Flow Rate FiO2 01/05/19 11:20 98.0 100 18 97/66 (76) 98 01/05/19 09:00 Room Air 01/05/19 08:38 98.0 109 18 104/79 (87) 98 01/05/19 07:36 100 01/05/19 04:00 103 01/05/19 04:00 98.0 99 18 94/58 (70) 98 01/05/19 00:00 97.4 102 18 92/61 (71) 97 01/05/19 00:00 101 01/04/19 21:00 Room Air 01/04/19 20:00 98.5 105 18 89/56 (67) 95 01/04/19 20:00 109 01/04/19 18:07 98.8 01/04/19 16:00 100.8 60 19 96/62 (73) 97 01/04/19 15:34 103 01/04/19 12:00 99.5 99 18 86/51 (63) 98 01/04/19 11:49 103 Height (Feet): 5 Height (Inches): 5.00 Weight (Pounds): 188 Objective Gen: NAD HEENT: NCAT, MMM, EOMI LUNGS: CTAB, No W CARDS: RRR, S1, S2, No M/R/G, ABD: Soft, NT, ND Laboratory Tests Test 01/05/19 08:20 White Blood Count 12.9 K/UL (4.8-10.8) H Red Blood Count 2.83 M/UL (4.70-6.10) L Hemoglobin 9.2 G/DL (14.2-18.0) L Hematocrit 29.3 % (42.0-52.0) L Mean Corpuscular Volume 104 FL (80-99) H Mean Corpuscular Hemoglobin 32.3 PG (27.0-31.0) H Mean Corpuscular Hemoglobin Concent 31.2 G/DL (32.0-36.0) L Red Cell Distribution Width 15.4 % (11.6-14.8) H Platelet Count 219 K/UL (150-450) Mean Platelet Volume 6.8 FL (6.5-10.1) Neutrophils (%) (Auto) 78.6 % (45.0-75.0) H Lymphocytes (%) (Auto) 7.6 % (20.0-45.0) L Monocytes (%) (Auto) 8.2 % (1.0-10.0) Eosinophils (%) (Auto) 4.1 % (0.0-3.0) H Basophils (%) (Auto) 1.5 % (0.0-2.0) Sodium Level 138 MMOL/L (136-145) Potassium Level 3.9 MMOL/L (3.5-5.1) Chloride Level 107 MMOL/L (98-107) Carbon Dioxide Level 22 MMOL/L (21-32) Anion Gap 9 mmol/L (5-15) Blood Urea Nitrogen 10 mg/dL (7-18) Creatinine 0.8 MG/DL (0.55-1.30) Estimat Glomerular Filtration Rate > 60 mL/min (>60) Glucose Level 153 MG/DL (74-106) H Uric Acid 2.3 MG/DL (2.6-7.2) L Calcium Level 6.8 MG/DL (8.5-10.1) L Phosphorus Level 1.7 MG/DL (2.5-4.9) L Magnesium Level 1.6 MG/DL (1.8-2.4) L Total Bilirubin 14.3 MG/DL (0.2-1.0) H Direct Bilirubin 12.5 MG/DL (0.0-0.3) H Aspartate Amino Transf (AST/SGOT) 79 U/L (15-37) H Alanine Aminotransferase (ALT/SGPT) 22 U/L (12-78) Alkaline Phosphatase 342 U/L (46-116) H Total Protein 4.9 G/DL (6.4-8.2) L Albumin 1.4 G/DL (3.4-5.0) L Current Medications Medications (Trade) Dose Ordered Sig/Clyde Route PRN Reason Start Time Stop Time Status Last Admin Dose Admin Acetaminophen (Tylenol) 650 mg Q4H PRN ORAL Mild Pain/Temp > 100.5 01/04/19 17:00 02/03/19 16:59 01/04/19 17:37 Chlordiazepoxide (Librium) 25 mg Q6H ORAL 12/31/18 20:00 01/06/19 01:59 01/05/19 08:00 Chlorhexidine Gluconate (Sharmila-Hex 2%) 1 applic DAILY@2000 TOPIC 01/02/19 20:00 02/01/19 19:59 01/04/19 20:33 Dextrose (Dextrose 50%) 25 ml Q30M PRN IV Hypoglycemia 6/7/19 01:00 01/28/19 16:29 Dextrose (Dextrose 50%) 50 ml Q30M PRN IV Hypoglycemia 12/30/18 01:00 01/28/19 16:29 Lactulose (Cephulac) 30 gm THREE TIMES A DAY ORAL 01/02/19 09:00 02/01/19 08:59 01/05/19 08:39 Levofloxacin (Levaquin) 750 mg DAILY ORAL 01/04/19 09:00 01/08/19 08:59 01/05/19 08:39 Lorazepam (Ativan 2mg/ml 1ml) 0.5 mg Q4H PRN IV For Anxiety 01/02/19 10:54 01/09/19 10:53 01/05/19 10:17 Lorazepam (Ativan 2mg/ml 1ml) 2 mg Q1H PRN IV SEIZURES 12/30/18 11:42 01/06/19 11:41 Metronidazole (Flagyl) 250 mg Q8HR ORAL 01/01/19 14:00 01/08/19 13:59 01/05/19 05:15 Midodrine (Pro-Amatine) 5 mg THREE TIMES A DAY ORAL 01/02/19 13:00 02/01/19 12:59 01/05/19 08:40 Ondansetron HCl (Zofran) 4 mg Q6H PRN IVP Nausea & Vomiting 12/30/18 04:30 01/28/19 16:29 Pantoprazole (Protonix) 40 mg BID ORAL 12/30/18 09:00 01/28/19 17:59 01/05/19 08:40 Phosphorus (Phospha 250 Neutral) 500 mg THREE TIMES A DAY ORAL 01/01/19 18:00 01/31/19 17:59 01/05/19 08:39 Prednisone (predniSONE) 40 mg DAILY ORAL 01/05/19 09:00 01/09/19 09:01 01/05/19 08:39 Rifaximin (Xifaxan) 550 mg EVERY 12 HOURS ORAL 01/02/19 09:00 01/09/19 08:59 01/05/19 08:40 Devon Kingsley MD Jan 05, 2019 11:48
--- NOTE | 2019-01-05 12:15 | NUR ---
NURSE NOTES: dr Schneider made aware of dark brown urine , no active bleeding, no new order at this time.
--- NOTE | 2019-01-05 12:25 | General Progress Note ---
Assessment/Plan Problem List: (1) Abdominal pain ICD Codes: R10.9 - Unspecified abdominal pain SNOMED: 04246985 (2) Anemia ICD Codes: D64.9 - Anemia, unspecified SNOMED: 560068620 (3) Alcoholic liver disease ICD Codes: K70.9 - Alcoholic liver disease, unspecified SNOMED: 83620948 (4) Acute alcoholic gastritis ICD Codes: K29.20 - Alcoholic gastritis without bleeding SNOMED: 0350246 Qualifiers: Qualified Codes: K29.20 - Alcoholic gastritis without bleeding Status: unchanged Assessment/Plan: detox gi f/u cbc bmp dc plan if clear Subjective Constitutional: Reports: weakness Allergies: Coded Allergies: No Known Allergies (Verified , 10/22/06) All Systems: reviewed and negative except above Subjective sleepy calm Objective Last 24 Hour Vital Signs Date Time Temp Pulse Resp B/P (MAP) Pulse Ox O2 Delivery O2 Flow Rate FiO2 01/05/19 11:20 98.0 100 18 97/66 (76) 98 01/05/19 09:00 Room Air 01/05/19 08:38 98.0 109 18 104/79 (87) 98 01/05/19 07:36 100 01/05/19 04:00 103 01/05/19 04:00 98.0 99 18 94/58 (70) 98 01/05/19 00:00 97.4 102 18 92/61 (71) 97 01/05/19 00:00 101 01/04/19 21:00 Room Air 01/04/19 20:00 98.5 105 18 89/56 (67) 95 01/04/19 20:00 109 01/04/19 18:07 98.8 01/04/19 16:00 100.8 60 19 96/62 (73) 97 01/04/19 15:34 103 Intake and Output 01/04/19 01/05/19 19:00 07:00 Intake Total 1940 ml 1085 ml Balance 1940 ml 1085 ml Intake Oral 1040 ml 260 ml IV Total 900 ml 825 ml # Voids 4 1 # Bowel Movements 3 3 Laboratory Tests 01/05/19 08:20: White Blood Count 12.9H, Red Blood Count 2.83L, Hemoglobin 9.2L, Hematocrit 29.3L, Mean Corpuscular Volume 104H, Mean Corpuscular Hemoglobin 32.3H, Mean Corpuscular Hemoglobin Concent 31.2L, Red Cell Distribution Width 15.4H, Platelet Count 219, Mean Platelet Volume 6.8, Neutrophils (%) (Auto) 78.6H, Lymphocytes (%) (Auto) 7.6L, Monocytes (%) (Auto) 8.2, Eosinophils (%) (Auto) 4.1H, Basophils (%) (Auto) 1.5, Sodium Level 138, Potassium Level 3.9, Chloride Level 107, Carbon Dioxide Level 22, Anion Gap 9, Blood Urea Nitrogen 10, Creatinine 0.8, Estimat Glomerular Filtration Rate > 60, Glucose Level 153H, Uric Acid 2.3L, Calcium Level 6.8L, Phosphorus Level 1.7L, Magnesium Level 1.6L , Total Bilirubin 14.3H, Direct Bilirubin 12.5H, Aspartate Amino Transf (AST/ SGOT) 79H, Alanine Aminotransferase (ALT/SGPT) 22, Alkaline Phosphatase 342H, Total Protein 4.9L, Albumin 1.4L Height (Feet): 5 Height (Inches): 5.00 Weight (Pounds): 188 General Appearance: lethargic EENT: normal ENT inspection Neck: normal alignment Cardiovascular: normal peripheral pulses, normal rate, regular rhythm Respiratory/Chest: chest wall non-tender, lungs clear, normal breath sounds Abdomen: non tender, soft, hypoactive bowel sounds, distended Extremities: normal inspection Edema: no edema noted Arm (L), no edema noted Arm (R), no edema noted Leg (L), no edema noted Leg (R), no edema noted Pedal (L), no edema noted Pedal (R), no edema noted Generalized Neurologic: responsive, motor weakness Skin: normal pigmentation, warm/dry Corwin Martinez DO Jan 05, 2019 12:25
--- NOTE | 2019-01-05 13:20 | NUR ---
RD ASSESSMENT & RECOMMENDATIONS SEE CARE ACTIVITY FOR COMPLETE ASSESSMENT DAILY ESTIMATED NEEDS: Needs based on liver dysfunction/ 67.7kg adj 25-30 kcals/kg 4149-4980 total kcals 1-1.5 g protein/kg 68-102 g total protein Fluid per MD NUTRITION DIAGNOSIS: 1) Altered nutrition related lab values r/t end stage liver disease as evidenced by elev T bili (14.3), elev LFT's, low phos (1.7), low mag (1.6), elev ammonia (61). CURRENT DIET: Cardiac PO DIET RECOMMENDATIONS: Low Fat/ Low Sodium (soft easy chew) ADDITIONAL RECOMMENDATIONS: 1) Recalibrate bed scale for accurate CBW 2) Add Vit B1 + folate + MVI daily 3) Check lytes daily, replete as needed (low Mg + phos) 4) Add Glucerna in b/w meals w/ <75% intake . . .
--- NOTE | 2019-01-05 14:15 | Nephrology Progress Note ---
Assessment/Plan Problem List: (1) Alcoholic liver disease (2) Anemia (3) Electrolyte disorder (4) Jaundice Assessment Acute Alcoholic Gastritis / Encephalopathy - Intoxication Alcoholic Hepatitis Anemia Hypokalemia Psych disease Plan labs noted has PICC now K and Mag and Phos supplement as needed Monitor lytes / Lfts per orders Subjective ROS Limited/Unobtainable: No Constitutional: Reports: malaise, weakness Objective Objective Last 24 Hour Vital Signs Date Time Temp Pulse Resp B/P (MAP) Pulse Ox O2 Delivery O2 Flow Rate FiO2 01/05/19 11:20 98.0 100 18 97/66 (76) 98 01/05/19 09:00 Room Air 01/05/19 08:38 98.0 109 18 104/79 (87) 98 01/05/19 07:36 100 01/05/19 04:00 103 01/05/19 04:00 98.0 99 18 94/58 (70) 98 01/05/19 00:00 97.4 102 18 92/61 (71) 97 01/05/19 00:00 101 01/04/19 21:00 Room Air 01/04/19 20:00 98.5 105 18 89/56 (67) 95 01/04/19 20:00 109 01/04/19 18:07 98.8 01/04/19 16:00 100.8 60 19 96/62 (73) 97 01/04/19 15:34 103 Intake and Output 01/04/19 01/05/19 19:00 07:00 Intake Total 1940 ml 1085 ml Balance 1940 ml 1085 ml Intake Oral 1040 ml 260 ml IV Total 900 ml 825 ml # Voids 4 1 # Bowel Movements 3 3 Laboratory Tests 01/05/19 08:20: White Blood Count 12.9H, Red Blood Count 2.83L, Hemoglobin 9.2L, Hematocrit 29.3L, Mean Corpuscular Volume 104H, Mean Corpuscular Hemoglobin 32.3H, Mean Corpuscular Hemoglobin Concent 31.2L, Red Cell Distribution Width 15.4H, Platelet Count 219, Mean Platelet Volume 6.8, Neutrophils (%) (Auto) 78.6H, Lymphocytes (%) (Auto) 7.6L, Monocytes (%) (Auto) 8.2, Eosinophils (%) (Auto) 4.1H, Basophils (%) (Auto) 1.5, Sodium Level 138, Potassium Level 3.9, Chloride Level 107, Carbon Dioxide Level 22, Anion Gap 9, Blood Urea Nitrogen 10, Creatinine 0.8, Estimat Glomerular Filtration Rate > 60, Glucose Level 153H, Uric Acid 2.3L, Calcium Level 6.8L, Phosphorus Level 1.7L, Magnesium Level 1.6L , Total Bilirubin 14.3H, Direct Bilirubin 12.5H, Aspartate Amino Transf (AST/ SGOT) 79H, Alanine Aminotransferase (ALT/SGPT) 22, Alkaline Phosphatase 342H, Total Protein 4.9L, Albumin 1.4L Height (Feet): 5 Height (Inches): 5.00 Weight (Pounds): 188 General Appearance: no apparent distress Respiratory/Chest: decreased breath sounds Abdomen: distended Objective no change Leonard Bautista MD Jan 05, 2019 14:15
--- NOTE | 2019-01-05 15:21 | NUR ---
*-* INSURANCE *-* UPDATED CLINICALS HAVE BEEN FAXED TO [facility]NAM[facility] SALAZAR[facility] NCM: DOMINGUEZ Iglesias P- [phone] F- [phone].....REVIEW/CLINICAL
[2019-01-05 16:00] VITALS: BP 108/59
--- NOTE | 2019-01-05 17:08 | Neurology Progress Note ---
Interim History Interim History ROS Limited/Unobtainable: No Complaints: AMS Events: This visit was performed on January 05, [address] Dee. Interim History Patient made DNR with hospice discharge planning Review of Systems Neuro Review of Systems Exam stable, non focal, generalized weakness with waxing / waning mentation. All Systems: reviewed and negative except above Objective Physical Exam Last Vital Signs Date Time Temp Pulse Resp B/P (MAP) Pulse Ox O2 Delivery O2 Flow Rate FiO2 01/05/19 11:20 98.0 100 18 97/66 (76) 98 01/05/19 09:00 Room Air 01/04/19 09:00 2.0 Laboratory Tests Test 01/05/19 08:20 White Blood Count 12.9 K/UL (4.8-10.8) H Red Blood Count 2.83 M/UL (4.70-6.10) L Hemoglobin 9.2 G/DL (14.2-18.0) L Hematocrit 29.3 % (42.0-52.0) L Mean Corpuscular Volume 104 FL (80-99) H Mean Corpuscular Hemoglobin 32.3 PG (27.0-31.0) H Mean Corpuscular Hemoglobin Concent 31.2 G/DL (32.0-36.0) L Red Cell Distribution Width 15.4 % (11.6-14.8) H Platelet Count 219 K/UL (150-450) Mean Platelet Volume 6.8 FL (6.5-10.1) Neutrophils (%) (Auto) 78.6 % (45.0-75.0) H Lymphocytes (%) (Auto) 7.6 % (20.0-45.0) L Monocytes (%) (Auto) 8.2 % (1.0-10.0) Eosinophils (%) (Auto) 4.1 % (0.0-3.0) H Basophils (%) (Auto) 1.5 % (0.0-2.0) Sodium Level 138 MMOL/L (136-145) Potassium Level 3.9 MMOL/L (3.5-5.1) Chloride Level 107 MMOL/L (98-107) Carbon Dioxide Level 22 MMOL/L (21-32) Anion Gap 9 mmol/L (5-15) Blood Urea Nitrogen 10 mg/dL (7-18) Creatinine 0.8 MG/DL (0.55-1.30) Estimat Glomerular Filtration Rate > 60 mL/min (>60) Glucose Level 153 MG/DL (74-106) H Uric Acid 2.3 MG/DL (2.6-7.2) L Calcium Level 6.8 MG/DL (8.5-10.1) L Phosphorus Level 1.7 MG/DL (2.5-4.9) L Magnesium Level 1.6 MG/DL (1.8-2.4) L Total Bilirubin 14.3 MG/DL (0.2-1.0) H Direct Bilirubin 12.5 MG/DL (0.0-0.3) H Aspartate Amino Transf (AST/SGOT) 79 U/L (15-37) H Alanine Aminotransferase (ALT/SGPT) 22 U/L (12-78) Alkaline Phosphatase 342 U/L (46-116) H Total Protein 4.9 G/DL (6.4-8.2) L Albumin 1.4 G/DL (3.4-5.0) L General: other Head: other Neck: no rigidity EENT: other - Visible right nasal polyp, skin tag, lesion - Neurologic Exam Mental Status: awake, alert, other Speech: other Language: other Cranial Nerve II: other Cranial Nerves III, IV, : other Cranial Nerve V: other Cranial Nerve VII: other Cranial Nerve VIII: other Cranial Nerve IX: other Cranial Nerve X: no voice hoarseness, other Cranial Nerve XI: SCM symmetric, other Cranial Nerve XII: tongue midline, other Motor System: no involuntary movement, other Sensory: normal pinprick, normal light touch, normal position sense, normal graphesthesia, other Coordination: other - More appropriately verbal in conversation at times with depressed affect and difficulty following instructions during examination. Deep Tendon Reflexes: 1+ bicep (L), 1+ bicep (R), 1+ tricep (L), 1+ tricep (R) , 1+ brachioradialis (L), 1+ brachioradialis (R), 1+ knee (L), 1+ knee (R), 1+ ankle (L), 1+ ankle (R) Stance: other - Patient remains weak throughout all extremities with non focal exam. He is more appropriate in conversation today but remains non focal and encephalopathic Gait: other Objective Patient is alert and oriented to circumstances with intermittent episodes of agitation, apparently stood out of bed previously,. He remains non focal and weak throughout Impression/Recommendations Problems: (1) Acute upper GI bleed (2) Fecal impaction in rectum (3) Esophagitis (4) Alcoholic liver disease (5) Elevated LFTs (6) Acute alcoholic gastritis (7) Psychosis (8) Acute alcoholic intoxication (9) Acute encephalopathy (10) Hypocalcemia Status: stable, progressing Recommendations Continue Lactulose Continue Q4 Neuro obs CIWA protocol PT Frequent reorientation Maintenance of good sleep hygiene with nonessential care withheld overnights Consider additional enteral feeding methods HgB>8 Replace / Replete lytes Psych recommendations regarding best non-sedating behavioral medications with least hepatic excretion at this time. Oral feeding PRN all day given nutritional status and care goals Anika Pettit N.P. Jan 05, 2019 17:08
[2019-01-05] MEDS ORDERED: Magnesium Oxide 400mg tab ORAL SCH (18:00)
[2019-01-05] MEDS ORDERED: Phospha 250 Neutral tab ORAL SCH (18:00)
--- NOTE | 2019-01-05 18:15 | NUR ---
NURSE NOTES: Report received from Caesar SOUTH, rounds made. Patient sleeping in right lateral position. Left PICC dressing CDI. No distress on RA, call light in reach, bed in lowest position. Belongings reviewed. Will continue to monitor.
[2019-01-05] MEDS ORDERED: LORazepam Inj 2mg/ml 1ml IV PRN (18:24)
--- NOTE | 2019-01-05 19:25 | NUR ---
HAND-OFF: Report given to Myla MCCRAY.
--- NOTE | 2019-01-05 19:40 | NUR ---
NURSE NOTES:Patient received from Consuelo Chavarria Patient in bed asleep. no s/s of distress noted . Left upper arm picc line in Patent and intact . call light within reach . bed in low position at all times . will continue to monitor .
[2019-01-05 20:00] VITALS: BP 100/62
[2019-01-05] MEDS ORDERED: chlordiazePOXIDE 25mg Cap ORAL SCH (20:00)
[2019-01-05] MEDS: Dyna-Hex 2% Top Sol 2oz TOPIC SCH (21:45)
[2019-01-06] VITALS: BP 104/72
[2019-01-06 04:00] VITALS: BP 106/75
[2019-01-06] MEDS: metroNIDAZOLE 250mg tab ORAL SCH ×3 (06:37→21:49)
--- NOTE | 2019-01-06 07:27 | NUR ---
CASE MANAGEMENT:REVIEW 01/06/19 SI: ACUTE ENCEPHALOPATHY ALCOHOLIC LIVER DISEASE 97.6 90 18 106/75 99% ON RA IS: FLAGYL PO Q8HRS LEVAQUIN PO QD LACTULOSE PO TID MIDODRINE PO TID PROTONIX PO BID PREDNISONE PO QD RIFAXIMIN PO Q12 : TELEMETRY STATUS PLAN: UNABLE TO FIND AN ACCEPTING SNF OF YET....NEED HELP FROM HEALTH PLAN PATIENT HAS ALREADY BEEN REFERRED TO THE FOLLOWING BY ANDREA 6TH GRADE TEACHER 1) [facility] JIMENE[facility] SPOKE WITH [facility] UNABLE TO ACCEPT 2) [facility] SPOKE WITH [facility] TO ACCEPT EVEN WHEN THEY HAD BEDS AVAILABLE 3)[facility] WITH KJ[facility] BEDS AVAILABLE BUT TOOK A MEDICARE PATIENT OF OURS 4)[facility] WITH SUSANUNABLE TO ACCEPT 5)[facility] TO ACCEPT 6)[facility] CHRISTINAUNABLE TO ACCEPT 7)[facility] 8) [facility] WITH STACYNO D/T ALCOHOL HISTORY 9)[facility] [place] NO RESPONSE 10)[facility] WITH ROWENANO BEDS 11)[facility] WITH AMBROSENO MALE BEDS 12)[facility] WITH ARTHURNO MALE BEDS 13)[facility] CTRSPOKE WITH CRISTELA DARDEN 14)[facility] WITH PAKO 15)YARITZA VÁSQUEZ FOR RESPONSE FROM ADRIAN
--- NOTE | 2019-01-06 07:39 | NUR ---
DISCHARGE PLANNING FRUIT AND VEGETABLE PARER HAS BEEN UNSUCCESSFUL IN FINDING SNF PLACEMENT THUS FAR PATIENT HAS BEEN REFERRED TO THE FOLLOWING 1) [facility] SPOKE WITH [facility] UNABLE TO ACCEPT 2) REJI SPOKE WITH EDY TO ACCEPT EVEN WHEN THEY HAD BEDS AVAILABLE 3)[facility] WITH KJNO BEDS AVAILABLE BUT TOOK A MEDICARE PATIENT OF OURS 4)[facility] WITH SUSANUNABLE TO ACCEPT 5)[facility] WITH [facility] TO ACCEPT 6)[facility] WITH CHRISTINAUNABLE TO ACCEPT 7)[facility] 8) [facility] WITH STACYNO D/T ALCOHOL HISTORY 9)[facility] [place] NO RESPONSE 10)[facility] WITH ROWENANO BEDS 11)[facility] WITH AMBROSENO MALE BEDS 12)[facility] WITH ARTHURNO MALE BEDS 13)[facility] CTRSPOKE WITH NORANO, NOT INTERESTE 14)[facility] CARESPOKE WITH NONANO 15)YARITZA VÁSQUEZ FOR RESPONSE FROM ADRIAN
--- NOTE | 2019-01-06 07:43 | NUR ---
HAND-OFF: Report given to JUANCARLOS Chavarria
--- NOTE | 2019-01-06 07:45 | NUR ---
NURSE NOTES: Report received from Myla MCCRAY, rounds made. Patient resting in semi-fowlers position in bed. No distress on RA, denies pain/NV. Skin with yellowish appearance. All skin assessed, (elbows, buttocks, heels) intact. Bilateral pedal non-pitting edema. Productive cough noted. Lungs diminished. Left PICC dressing intact, clamped. Abdomen firm, distended, bowel sounds x4 quadrants, hypoactive. Side rails up, bed in lowest position, will continue to monitor.
[2019-01-06 08:00] VITALS: BP 103/84
[2019-01-06 08:07] LABS: HEMATOCRIT 27.7 % (42.0-52.0); HEMOGLOBIN 8.8 G/DL (14.2-18.0); MEAN CORPUSCULAR VOLUME 102 FL (80-99); PLATELET COUNT 245 K/UL (150-450); RED BLOOD COUNT 2.71 M/UL (4.70-6.10); RED CELL DISTRIBUTION WIDTH 15.4 % (11.6-14.8); WHITE BLOOD COUNT 16.7 K/UL (4.8-10.8)
[2019-01-06 08:35] LABS: ALANINE AMINOTRANSFERASE 18 U/L (12-78); ALBUMIN 1.3 G/DL (3.4-5.0); ALBUMIN/GLOBULIN RATIO 0.4 (1.0-2.7); ALKALINE PHOSPHATASE 325 U/L (46-116); ANION GAP 8 mmol/L (5-15); ASPARTATE AMINO TRANSFERASE 64 U/L (15-37); BILIRUBIN,TOTAL 13.1 MG/DL (0.2-1.0); BLOOD UREA NITROGEN 14 mg/dL (7-18); CALCIUM 6.7 MG/DL (8.5-10.1); CARBON DIOXIDE 25 MMOL/L (21-32); CHLORIDE 105 MMOL/L (98-107); CREATININE 0.9 MG/DL (0.55-1.30); POTASSIUM 3.9 MMOL/L (3.5-5.1); SODIUM 138 MMOL/L (136-145)
[2019-01-06 08:37] LABS: BILIRUBIN,DIRECT 11.9 MG/DL (0.0-0.3)
[2019-01-06] MEDS: Levofloxacin 750mg tab ORAL SCH (09:46)
[2019-01-06] MEDS: Lactulose 20gm/30ml UDC ORAL SCH ×3 (09:46→18:32)
[2019-01-06] MEDS: Phospha 250 Neutral tab ORAL SCH ×2 (09:47→13:47)
[2019-01-06] MEDS: Magnesium Oxide 400mg tab ORAL SCH ×2 (09:47→13:48)
--- NOTE | 2019-01-06 09:48 | NUR ---
*-* INSURANCE *-* UPDATED CLINICALS HAVE BEEN FAXED TO ANNAMARIE SALAZAR/ERNESTO NCM: DOMINGUEZ Iglesias P- [phone] F- [phone].....REVIEW/CLINICAL
--- NOTE | 2019-01-06 10:24 | Infectious Diseases Prog Note ---
Assessment/Plan Assessment/Plan 58 yo male with PMHx of EtOH abuse, Depression and anxiety, SI who presented to the ED on 12/29/18 with N/V and abdominal pain. Leukocytosis and single high temp- Probable acute cholecystitis Likely due to gastritis from EtOH need -MRCP : Very limited exam, as described. Normal caliber bile ducts without definite filling defects to suggest choledocholithiasis Cholelithiasis. Gallbladder wall thickening, also described on prior sonogram. Most likely on the basis of hepatocellular derangement but the possibility of acute cholecystitis should also be considered. Ascites. Abnormal hepatic morphology, also previously described, suggestive of cirrhotic change -Abd US: Hepatomegaly. Coarsened hepatic echogenicity and surface nodularitysuggests cirrhosis. Ascites, not demonstrated previously. Cholelithiasis and gallbladder sludge, not evident previously. Gallbladder wall thickening and pericholecystic fluid, probably due to the hepatocellular derangements, but the possibility of acute cholecystitis should also be considered. Correlate with clinical findings, consider nuclear medicine hepatobiliary scan if clinically indicated. Negative for dilated bile ducts. Incidental finding small left renal cyst -CT abd/p: Chronic liver disease/cirrhosis with fatty infiltration, enlargement of the liver and stigmata of portal hypertension including ascites and splenomegaly, recanalized umbilical vein. Basilar atelectasis. Probable gallstones. Tiny bilateral renal hypodensities too small to characterize.Fecal impaction Cirrhosis EtOH abuse Hep A/B/C - Pend Depression and anxiety SI HIV (-) PLAN: - Continue Levofloxacin #5/7 and Flagyl #5/7 ( End date 01/08/19) for probable acute cholecystitis - D/C Zosyn #5 - Monitor CBC and Temps - Monitor clinically - OK to d/c from an ID perspective but would finish a course of abx for possible cholecystitis. We will continue to follow the patient during this hospitalization. Subjective Allergies: Coded Allergies: No Known Allergies (Verified , 10/22/06) Subjective Patient awake and alert Afebrile continued Leukocytosis likely due to prednisone Objective Vital Signs Last 24 Hour Vital Signs Date Time Temp Pulse Resp B/P (MAP) Pulse Ox O2 Delivery O2 Flow Rate FiO2 01/06/19 08:00 97.4 83 20 103/84 (90) 92 01/06/19 04:00 97.6 90 18 106/75 (85) 99 01/06/19 00:00 97.6 104 20 104/72 (83) 95 01/05/19 21:00 Room Air 01/05/19 20:00 97.6 97 20 100/62 (75) 95 01/05/19 16:00 98.4 105 19 108/59 (75) 92 01/05/19 11:20 98.0 100 18 97/66 (76) 98 Height (Feet): 5 Height (Inches): 5.00 Weight (Pounds): 188 Objective Gen: NAD, Laying in bed HEENT: NCAT, MMM, EOMI LUNGS: CTAB, No W CARDS: RRR, S1, S2, No M/R/G, ABD: Soft, NT, ND Laboratory Tests Test 01/06/19 06:20 White Blood Count 16.7 K/UL (4.8-10.8) H Red Blood Count 2.71 M/UL (4.70-6.10) L Hemoglobin 8.8 G/DL (14.2-18.0) L Hematocrit 27.7 % (42.0-52.0) L Mean Corpuscular Volume 102 FL (80-99) H Mean Corpuscular Hemoglobin 32.4 PG (27.0-31.0) H Mean Corpuscular Hemoglobin Concent 31.7 G/DL (32.0-36.0) L Red Cell Distribution Width 15.4 % (11.6-14.8) H Platelet Count 245 K/UL (150-450) Mean Platelet Volume 6.6 FL (6.5-10.1) Neutrophils (%) (Auto) % (45.0-75.0) Lymphocytes (%) (Auto) % (20.0-45.0) Monocytes (%) (Auto) % (1.0-10.0) Eosinophils (%) (Auto) % (0.0-3.0) Basophils (%) (Auto) % (0.0-2.0) Differential Total Cells Counted 100 Neutrophils % (Manual) 88 % (45-75) H Lymphocytes % (Manual) 7 % (20-45) L Monocytes % (Manual) 5 % (1-10) Eosinophils % (Manual) 0 % (0-3) Basophils % (Manual) 0 % (0-2) Band Neutrophils 0 % (0-8) Platelet Estimate Adequate Platelet Morphology Normal Polychromasia 2+ Hypochromasia 1+ Anisocytosis 1+ Macrocytosis 1+ Sodium Level 138 MMOL/L (136-145) Potassium Level 3.9 MMOL/L (3.5-5.1) Chloride Level 105 MMOL/L (98-107) Carbon Dioxide Level 25 MMOL/L (21-32) Anion Gap 8 mmol/L (5-15) Blood Urea Nitrogen 14 mg/dL (7-18) Creatinine 0.9 MG/DL (0.55-1.30) Estimat Glomerular Filtration Rate > 60 mL/min (>60) Glucose Level 146 MG/DL (74-106) H Calcium Level 6.7 MG/DL (8.5-10.1) L Total Bilirubin 13.1 MG/DL (0.2-1.0) H Direct Bilirubin 11.9 MG/DL (0.0-0.3) H Aspartate Amino Transf (AST/SGOT) 64 U/L (15-37) H Alanine Aminotransferase (ALT/SGPT) 18 U/L (12-78) Alkaline Phosphatase 325 U/L (46-116) H Total Protein 4.6 G/DL (6.4-8.2) L Albumin 1.3 G/DL (3.4-5.0) L Globulin 3.3 g/dL Albumin/Globulin Ratio 0.4 (1.0-2.7) L Current Medications Medications (Trade) Dose Ordered Sig/Clyde Route PRN Reason Start Time Stop Time Status Last Admin Dose Admin Acetaminophen (Tylenol) 650 mg Q4H PRN ORAL Mild Pain/Temp > 100.5 01/05/19 18:23 02/04/19 18:22 Chlorhexidine Gluconate (Sharmila-Hex 2%) 1 applic DAILY@1999 TOPIC 01/05/19 20:00 02/01/19 19:59 01/05/19 21:45 Dextrose (Dextrose 50%) 25 ml Q30M PRN IV Hypoglycemia 01/05/19 18:30 01/28/19 16:29 Dextrose (Dextrose 50%) 50 ml Q30M PRN IV Hypoglycemia 01/05/19 18:30 01/28/19 16:29 Lactulose (Cephulac) 30 gm THREE TIMES A DAY ORAL 01/06/19 09:00 02/01/19 08:59 01/06/19 09:46 Levofloxacin (Levaquin) 750 mg DAILY ORAL 01/06/19 09:00 01/08/19 08:59 01/06/19 09:46 Lorazepam (Ativan 2mg/ml 1ml) 0.5 mg Q4H PRN IV For Anxiety 01/05/19 18:24 01/12/19 18:23 Lorazepam (Ativan 2mg/ml 1ml) 2 mg Q1H PRN IV SEIZURES 01/05/19 18:24 01/12/19 18:23 Magnesium Oxide (Mag-Ox 400mg) 400 mg THREE TIMES A DAY ORAL 01/06/19 09:00 02/04/19 17:59 01/06/19 09:47 Metronidazole (Flagyl) 250 mg Q8HR ORAL 01/05/19 22:00 01/08/19 13:59 01/06/19 06:37 Midodrine (Pro-Amatine) 5 mg THREE TIMES A DAY ORAL 01/06/19 09:00 02/01/19 12:59 01/06/19 09:46 Ondansetron HCl (Zofran) 4 mg Q6H PRN IVP Nausea & Vomiting 01/05/19 18:25 02/04/19 18:24 Pantoprazole (Protonix) 40 mg BID ORAL 01/06/19 09:00 01/28/19 17:59 01/06/19 09:47 Phosphorus (Phospha 250 Neutral) 500 mg THREE TIMES A DAY ORAL 01/06/19 09:00 02/04/19 17:59 01/06/19 09:47 Prednisone (predniSONE) 40 mg DAILY ORAL 01/06/19 09:00 01/09/19 09:01 01/06/19 09:47 Rifaximin (Xifaxan) 550 mg EVERY 12 HOURS ORAL 01/05/19 21:00 01/09/19 08:59 01/06/19 09:46 Devon Kingsley MD Jan 06, 2019 10:24
--- NOTE | 2019-01-06 10:24 | General Progress Note ---
Assessment/Plan Problem List: (1) Elevated LFTs ICD Codes: R94.5 - Abnormal results of liver function studies SNOMED: 405349069, 978617260 (2) Esophagitis ICD Codes: K20.9 - Esophagitis, unspecified SNOMED: 99034439 (3) Acute alcoholic gastritis ICD Codes: K29.20 - Alcoholic gastritis without bleeding SNOMED: 8662456 Qualifiers: Qualified Codes: K29.20 - Alcoholic gastritis without bleeding (4) Alcoholic liver disease ICD Codes: K70.9 - Alcoholic liver disease, unspecified SNOMED: 89461034 Status: stable, progressing Assessment/Plan: Imaging noted, cirrhosis rising bili US with doppler r/o Budd-Chiari Syndrome>> negative OB stool negative Stable H&H discriminant function calculated, patient will benefit from glucocorticoid therapy Imaging noted, cirrhosis rising bili US with doppler r/o Budd-Chiari Syndrome>> negative OB stool negative Stable H&H discriminant function calculated, patient will benefit from glucocorticoid therapy Prednisone 40mg PO daily x 5 days lactulose + xifaxan>>> improving ammonia level monitor H&H, prn transfusions bowel regimen ppi fu labs fu neurology recs Will benefit from endoscopy to evaluate for esophageal varices as outpatient Subjective ROS Limited/Unobtainable: No Allergies: Coded Allergies: No Known Allergies (Verified , 10/22/06) Objective Last 24 Hour Vital Signs Date Time Temp Pulse Resp B/P (MAP) Pulse Ox O2 Delivery O2 Flow Rate FiO2 01/06/19 08:00 97.4 83 20 103/84 (90) 92 01/06/19 04:00 97.6 90 18 106/75 (85) 99 01/06/19 00:00 97.6 104 20 104/72 (83) 95 01/05/19 21:00 Room Air 01/05/19 20:00 97.6 97 20 100/62 (75) 95 01/05/19 16:00 98.4 105 19 108/59 (75) 92 01/05/19 11:20 98.0 100 18 97/66 (76) 98 Intake and Output 01/05/19 01/06/19 19:00 07:00 Intake Total 575 ml 1040 ml Balance 575 ml 1040 ml Intake Oral 500 ml 1040 ml IV Total 75 ml # Voids 2 5 # Bowel Movements 1 Laboratory Tests 01/06/19 06:20: White Blood Count 16.7H, Red Blood Count 2.71L, Hemoglobin 8.8L, Hematocrit 27.7L, Mean Corpuscular Volume 102H, Mean Corpuscular Hemoglobin 32.4H, Mean Corpuscular Hemoglobin Concent 31.7L, Red Cell Distribution Width 15.4H, Platelet Count 245, Mean Platelet Volume 6.6, Neutrophils (%) (Auto) , Lymphocytes (%) (Auto) , Monocytes (%) (Auto) , Eosinophils (%) (Auto) , Basophils (%) (Auto) , Differential Total Cells Counted 100, Neutrophils % ( Manual) 88H, Lymphocytes % (Manual) 7L, Monocytes % (Manual) 5, Eosinophils % ( Manual) 0, Basophils % (Manual) 0, Band Neutrophils 0, Platelet Estimate Adequate, Platelet Morphology Normal, Polychromasia 2+, Hypochromasia 1+, Anisocytosis 1+, Macrocytosis 1+, Sodium Level 138, Potassium Level 3.9, Chloride Level 105, Carbon Dioxide Level 25, Anion Gap 8, Blood Urea Nitrogen 14 , Creatinine 0.9, Estimat Glomerular Filtration Rate > 60, Glucose Level 146H, Calcium Level 6.7L, Total Bilirubin 13.1H, Direct Bilirubin 11.9H, Aspartate Amino Transf (AST/SGOT) 64H, Alanine Aminotransferase (ALT/SGPT) 18, Alkaline Phosphatase 325H, Total Protein 4.6L, Albumin 1.3L, Globulin 3.3, Albumin/ Globulin Ratio 0.4L Height (Feet): 5 Height (Inches): 5.00 Weight (Pounds): 188 General Appearance: alert EENT: normal ENT inspection Neck: supple Cardiovascular: normal rate Respiratory/Chest: decreased breath sounds Abdomen: normal bowel sounds, non tender, soft Extremities: non-tender Jarod Rich MD Jan 06, 2019 10:24
[2019-01-06 11:16] LABS: PHOSPHORUS 2.1 MG/DL (2.5-4.9)
[2019-01-06 12:00] VITALS: BP 100/70
--- NOTE | 2019-01-06 13:11 | Cardiac Electrophysiology PN ---
Assessment/Plan Assessment/Plan 1. Hypotension 90s and sinus tach 100s.Continue Midodrine 5 tid 2. Atypical Chest pain . EKG nonspecific ST-T wave abnormality. No AK. Echo EF 55% 3. Persistent hypokalemia. Corrected. No arrhythmias. 4. Severe hyponatremia. Corrected 5. ETOH Cirrhosis with Bilirubin 14. FU GI. 6. Hospice Care DW RN Subjective Subjective Is hospice care.Awaiting placement Objective Last 24 Hour Vital Signs Date Time Temp Pulse Resp B/P (MAP) Pulse Ox O2 Delivery O2 Flow Rate FiO2 01/06/19 12:00 97.2 104 18 100/70 (80) 91 01/06/19 08:00 97.4 83 20 103/84 (90) 92 01/06/19 04:00 97.6 90 18 106/75 (85) 99 01/06/19 00:00 97.6 104 20 104/72 (83) 95 01/05/19 21:00 Room Air 01/05/19 20:00 97.6 97 20 100/62 (75) 95 01/05/19 16:00 98.4 105 19 108/59 (75) 92 Intake and Output 01/05/19 01/06/19 19:00 07:00 Intake Total 575 ml 1040 ml Balance 575 ml 1040 ml Intake Oral 500 ml 1040 ml IV Total 75 ml # Voids 2 5 # Bowel Movements 1 Laboratory Tests Test 01/06/19 06:20 White Blood Count 16.7 K/UL (4.8-10.8) H Red Blood Count 2.71 M/UL (4.70-6.10) L Hemoglobin 8.8 G/DL (14.2-18.0) L Hematocrit 27.7 % (42.0-52.0) L Mean Corpuscular Volume 102 FL (80-99) H Mean Corpuscular Hemoglobin 32.4 PG (27.0-31.0) H Mean Corpuscular Hemoglobin Concent 31.7 G/DL (32.0-36.0) L Red Cell Distribution Width 15.4 % (11.6-14.8) H Platelet Count 245 K/UL (150-450) Mean Platelet Volume 6.6 FL (6.5-10.1) Neutrophils (%) (Auto) % (45.0-75.0) Lymphocytes (%) (Auto) % (20.0-45.0) Monocytes (%) (Auto) % (1.0-10.0) Eosinophils (%) (Auto) % (0.0-3.0) Basophils (%) (Auto) % (0.0-2.0) Differential Total Cells Counted 100 Neutrophils % (Manual) 88 % (45-75) H Lymphocytes % (Manual) 7 % (20-45) L Monocytes % (Manual) 5 % (1-10) Eosinophils % (Manual) 0 % (0-3) Basophils % (Manual) 0 % (0-2) Band Neutrophils 0 % (0-8) Platelet Estimate Adequate Platelet Morphology Normal Polychromasia 2+ Hypochromasia 1+ Anisocytosis 1+ Macrocytosis 1+ Sodium Level 138 MMOL/L (136-145) Potassium Level 3.9 MMOL/L (3.5-5.1) Chloride Level 105 MMOL/L (98-107) Carbon Dioxide Level 25 MMOL/L (21-32) Anion Gap 8 mmol/L (5-15) Blood Urea Nitrogen 14 mg/dL (7-18) Creatinine 0.9 MG/DL (0.55-1.30) Estimat Glomerular Filtration Rate > 60 mL/min (>60) Glucose Level 146 MG/DL (74-106) H Calcium Level 6.7 MG/DL (8.5-10.1) L Phosphorus Level 2.1 MG/DL (2.5-4.9) L Magnesium Level 1.7 MG/DL (1.8-2.4) L Total Bilirubin 13.1 MG/DL (0.2-1.0) H Direct Bilirubin 11.9 MG/DL (0.0-0.3) H Aspartate Amino Transf (AST/SGOT) 64 U/L (15-37) H Alanine Aminotransferase (ALT/SGPT) 18 U/L (12-78) Alkaline Phosphatase 325 U/L (46-116) H Total Protein 4.6 G/DL (6.4-8.2) L Albumin 1.3 G/DL (3.4-5.0) L Globulin 3.3 g/dL Albumin/Globulin Ratio 0.4 (1.0-2.7) L Objective General Appearance: No apparent distress, alert HEENT: Jaundiced Cardiovascular: normal S1 and S2 and no murmur Respiratory/Chest: normal breath sounds, no respiratory distress Abdominal Exam: normal bowel sounds, non tender, soft with ascites Extremities: normal range of motion, non-tender. 1 plus edema Franck Saeed MD Jan 06, 2019 13:11
--- NOTE | 2019-01-06 13:42 | General Progress Note ---
Assessment/Plan Problem List: (1) Abdominal pain ICD Codes: R10.9 - Unspecified abdominal pain SNOMED: 32962585 (2) Anemia ICD Codes: D64.9 - Anemia, unspecified SNOMED: 611601898 (3) Alcoholic liver disease ICD Codes: K70.9 - Alcoholic liver disease, unspecified SNOMED: 98089740 (4) Acute alcoholic gastritis ICD Codes: K29.20 - Alcoholic gastritis without bleeding SNOMED: 9327824 Qualifiers: Qualified Codes: K29.20 - Alcoholic gastritis without bleeding Status: stable, progressing Assessment/Plan: detox gi f/u cbc bmp dc plan if clear Subjective Allergies: Coded Allergies: No Known Allergies (Verified , 10/22/06) All Systems: reviewed and negative except above Subjective sleepy anxious Objective Last 24 Hour Vital Signs Date Time Temp Pulse Resp B/P (MAP) Pulse Ox O2 Delivery O2 Flow Rate FiO2 01/06/19 12:00 97.2 104 18 100/70 (80) 91 01/06/19 08:00 97.4 83 20 103/84 (90) 92 01/06/19 04:00 97.6 90 18 106/75 (85) 99 01/06/19 00:00 97.6 104 20 104/72 (83) 95 01/05/19 21:00 Room Air 01/05/19 20:00 97.6 97 20 100/62 (75) 95 01/05/19 16:00 98.4 105 19 108/59 (75) 92 Intake and Output 01/05/19 01/06/19 19:00 07:00 Intake Total 575 ml 1040 ml Balance 575 ml 1040 ml Intake Oral 500 ml 1040 ml IV Total 75 ml # Voids 2 5 # Bowel Movements 1 Laboratory Tests 01/06/19 06:20: White Blood Count 16.7H, Red Blood Count 2.71L, Hemoglobin 8.8L, Hematocrit 27.7L, Mean Corpuscular Volume 102H, Mean Corpuscular Hemoglobin 32.4H, Mean Corpuscular Hemoglobin Concent 31.7L, Red Cell Distribution Width 15.4H, Platelet Count 245, Mean Platelet Volume 6.6, Neutrophils (%) (Auto) , Lymphocytes (%) (Auto) , Monocytes (%) (Auto) , Eosinophils (%) (Auto) , Basophils (%) (Auto) , Differential Total Cells Counted 100, Neutrophils % ( Manual) 88H, Lymphocytes % (Manual) 7L, Monocytes % (Manual) 5, Eosinophils % ( Manual) 0, Basophils % (Manual) 0, Band Neutrophils 0, Platelet Estimate Adequate, Platelet Morphology Normal, Polychromasia 2+, Hypochromasia 1+, Anisocytosis 1+, Macrocytosis 1+, Sodium Level 138, Potassium Level 3.9, Chloride Level 105, Carbon Dioxide Level 25, Anion Gap 8, Blood Urea Nitrogen 14 , Creatinine 0.9, Estimat Glomerular Filtration Rate > 60, Glucose Level 146H, Calcium Level 6.7L, Phosphorus Level 2.1L, Magnesium Level 1.7L, Total Bilirubin 13.1H, Direct Bilirubin 11.9H, Aspartate Amino Transf (AST/SGOT) 64H, Alanine Aminotransferase (ALT/SGPT) 18, Alkaline Phosphatase 325H, Total Protein 4.6L, Albumin 1.3L, Globulin 3.3, Albumin/Globulin Ratio 0.4L Height (Feet): 5 Height (Inches): 5.00 Weight (Pounds): 188 General Appearance: lethargic EENT: normal ENT inspection Neck: normal alignment Cardiovascular: normal peripheral pulses, normal rate, regular rhythm Respiratory/Chest: chest wall non-tender, lungs clear, normal breath sounds Abdomen: soft, hypoactive bowel sounds, distended Extremities: normal inspection Edema: no edema noted Arm (L), no edema noted Arm (R), no edema noted Leg (L), no edema noted Leg (R), no edema noted Pedal (L), no edema noted Pedal (R), no edema noted Generalized Neurologic: motor weakness Skin: normal pigmentation, warm/dry Corwin Martinez DO Jan 06, 2019 13:42
--- NOTE | 2019-01-06 14:34 | Nephrology Progress Note ---
Assessment/Plan Problem List: (1) Alcoholic liver disease (2) Anemia (3) Electrolyte disorder (4) Jaundice Assessment Acute Alcoholic Gastritis / Encephalopathy - Intoxication Alcoholic Hepatitis Anemia Hypokalemia Psych disease Plan labs noted on PO steroids now has PICC now K and Mag and Phos supplement as needed Monitor lytes / Lfts per orders Subjective ROS Limited/Unobtainable: No Constitutional: Reports: malaise Objective Objective Last 24 Hour Vital Signs Date Time Temp Pulse Resp B/P (MAP) Pulse Ox O2 Delivery O2 Flow Rate FiO2 01/06/19 12:00 97.2 104 18 100/70 (80) 91 01/06/19 08:00 97.4 83 20 103/84 (90) 92 01/06/19 04:00 97.6 90 18 106/75 (85) 99 01/06/19 00:00 97.6 104 20 104/72 (83) 95 01/05/19 21:00 Room Air 01/05/19 20:00 97.6 97 20 100/62 (75) 95 01/05/19 16:00 98.4 105 19 108/59 (75) 92 Intake and Output 01/05/19 01/06/19 19:00 07:00 Intake Total 575 ml 1040 ml Balance 575 ml 1040 ml Intake Oral 500 ml 1040 ml IV Total 75 ml # Voids 2 5 # Bowel Movements 1 Laboratory Tests 01/06/19 06:20: White Blood Count 16.7H, Red Blood Count 2.71L, Hemoglobin 8.8L, Hematocrit 27.7L, Mean Corpuscular Volume 102H, Mean Corpuscular Hemoglobin 32.4H, Mean Corpuscular Hemoglobin Concent 31.7L, Red Cell Distribution Width 15.4H, Platelet Count 245, Mean Platelet Volume 6.6, Neutrophils (%) (Auto) , Lymphocytes (%) (Auto) , Monocytes (%) (Auto) , Eosinophils (%) (Auto) , Basophils (%) (Auto) , Differential Total Cells Counted 100, Neutrophils % ( Manual) 88H, Lymphocytes % (Manual) 7L, Monocytes % (Manual) 5, Eosinophils % ( Manual) 0, Basophils % (Manual) 0, Band Neutrophils 0, Platelet Estimate Adequate, Platelet Morphology Normal, Polychromasia 2+, Hypochromasia 1+, Anisocytosis 1+, Macrocytosis 1+, Sodium Level 138, Potassium Level 3.9, Chloride Level 105, Carbon Dioxide Level 25, Anion Gap 8, Blood Urea Nitrogen 14 , Creatinine 0.9, Estimat Glomerular Filtration Rate > 60, Glucose Level 146H, Calcium Level 6.7L, Phosphorus Level 2.1L, Magnesium Level 1.7L, Total Bilirubin 13.1H, Direct Bilirubin 11.9H, Aspartate Amino Transf (AST/SGOT) 64H, Alanine Aminotransferase (ALT/SGPT) 18, Alkaline Phosphatase 325H, Total Protein 4.6L, Albumin 1.3L, Globulin 3.3, Albumin/Globulin Ratio 0.4L Height (Feet): 5 Height (Inches): 5.00 Weight (Pounds): 188 General Appearance: no apparent distress Cardiovascular: tachycardia Respiratory/Chest: decreased breath sounds Abdomen: distended Objective no change Leonard Bautista MD Jan 06, 2019 14:34
--- NOTE | 2019-01-06 14:42 | Pulmonology Progress Note ---
Assessment/Plan Problems: (1) End stage liver disease (2) Acute upper GI bleed (3) Acute alcoholic intoxication (4) Coagulopathy (5) Psychosis (6) Acute encephalopathy (7) Alcoholic liver disease Assessment/Plan awaiting discharge to [facility] under hospice care. symptomatic treatment lactulose f/u Ammonia level. consider comfort care and DNR Subjective ROS Limited/Unobtainable: No Constitutional: Reports: no symptoms HEENT: Repors: no symptoms Respiratory: Reports: no symptoms Allergies: Coded Allergies: No Known Allergies (Verified , 10/22/06) Objective Last 24 Hour Vital Signs Date Time Temp Pulse Resp B/P (MAP) Pulse Ox O2 Delivery O2 Flow Rate FiO2 01/06/19 12:00 97.2 104 18 100/70 (80) 91 01/06/19 08:00 97.4 83 20 103/84 (90) 92 01/06/19 04:00 97.6 90 18 106/75 (85) 99 01/06/19 00:00 97.6 104 20 104/72 (83) 95 01/05/19 21:00 Room Air 01/05/19 20:00 97.6 97 20 100/62 (75) 95 01/05/19 16:00 98.4 105 19 108/59 (75) 92 Intake and Output 01/05/19 01/06/19 19:00 07:00 Intake Total 575 ml 1040 ml Balance 575 ml 1040 ml Intake Oral 500 ml 1040 ml IV Total 75 ml # Voids 2 5 # Bowel Movements 1 General Appearance: WD/WN HEENT: normocephalic, atraumatic, anicteric, PERRL Respiratory/Chest: chest wall non-tender, lungs clear Cardiovascular: regular rhythm Abdomen: no organomegaly, no scars Extremities: no clubbing Laboratory Tests 01/06/19 06:20: White Blood Count 16.7H, Red Blood Count 2.71L, Hemoglobin 8.8L, Hematocrit 27.7L, Mean Corpuscular Volume 102H, Mean Corpuscular Hemoglobin 32.4H, Mean Corpuscular Hemoglobin Concent 31.7L, Red Cell Distribution Width 15.4H, Platelet Count 245, Mean Platelet Volume 6.6, Neutrophils (%) (Auto) , Lymphocytes (%) (Auto) , Monocytes (%) (Auto) , Eosinophils (%) (Auto) , Basophils (%) (Auto) , Differential Total Cells Counted 100, Neutrophils % ( Manual) 88H, Lymphocytes % (Manual) 7L, Monocytes % (Manual) 5, Eosinophils % ( Manual) 0, Basophils % (Manual) 0, Band Neutrophils 0, Platelet Estimate Adequate, Platelet Morphology Normal, Polychromasia 2+, Hypochromasia 1+, Anisocytosis 1+, Macrocytosis 1+, Sodium Level 138, Potassium Level 3.9, Chloride Level 105, Carbon Dioxide Level 25, Anion Gap 8, Blood Urea Nitrogen 14 , Creatinine 0.9, Estimat Glomerular Filtration Rate > 60, Glucose Level 146H, Calcium Level 6.7L, Phosphorus Level 2.1L, Magnesium Level 1.7L, Total Bilirubin 13.1H, Direct Bilirubin 11.9H, Aspartate Amino Transf (AST/SGOT) 64H, Alanine Aminotransferase (ALT/SGPT) 18, Alkaline Phosphatase 325H, Total Protein 4.6L, Albumin 1.3L, Globulin 3.3, Albumin/Globulin Ratio 0.4L Current Medications Medications (Trade) Dose Ordered Sig/Clyde Route PRN Reason Start Time Stop Time Status Last Admin Dose Admin Acetaminophen (Tylenol) 650 mg Q4H PRN ORAL Mild Pain/Temp > 100.5 01/05/19 18:23 02/04/19 18:22 Chlorhexidine Gluconate (Sharmila-Hex 2%) 1 applic DAILY@1999 TOPIC 01/05/19 20:00 02/01/19 19:59 01/05/19 21:45 Dextrose (Dextrose 50%) 25 ml Q30M PRN IV Hypoglycemia 01/05/19 18:30 01/28/19 16:29 Dextrose (Dextrose 50%) 50 ml Q30M PRN IV Hypoglycemia 01/05/19 18:30 01/28/19 16:29 Lactulose (Cephulac) 30 gm THREE TIMES A DAY ORAL 01/06/19 09:00 02/01/19 08:59 01/06/19 13:47 Levofloxacin (Levaquin) 750 mg DAILY ORAL 01/06/19 09:00 01/08/19 08:59 01/06/19 09:46 Lorazepam (Ativan 2mg/ml 1ml) 0.5 mg Q4H PRN IV For Anxiety 01/05/19 18:24 01/12/19 18:23 Lorazepam (Ativan 2mg/ml 1ml) 2 mg Q1H PRN IV SEIZURES 01/05/19 18:24 01/12/19 18:23 Magnesium Sulfate 100 ml @ 100 mls/hr Q1H IVPB 01/06/19 14:45 01/06/19 18:44 Metronidazole (Flagyl) 250 mg Q8HR ORAL 01/05/19 22:00 01/08/19 13:59 01/06/19 13:48 Midodrine (Pro-Amatine) 5 mg THREE TIMES A DAY ORAL 01/06/19 09:00 02/01/19 12:59 01/06/19 13:48 Ondansetron HCl (Zofran) 4 mg Q6H PRN IVP Nausea & Vomiting 01/05/19 18:25 02/04/19 18:24 Pantoprazole (Protonix) 40 mg BID ORAL 01/06/19 09:00 01/28/19 17:59 01/06/19 09:47 Potassium Phosphate 30 mm/ Sodium Chloride 285 ml @ 47.5 mls/hr ONCE IV 01/06/19 15:00 01/06/19 21:00 Prednisone (predniSONE) 40 mg DAILY ORAL 01/06/19 09:00 01/09/19 09:01 01/06/19 09:47 Rifaximin (Xifaxan) 550 mg EVERY 12 HOURS ORAL 01/05/19 21:00 01/09/19 08:59 01/06/19 09:46 Marion Schneider MD Jan 06, 2019 14:42
[2019-01-06] MEDS ORDERED: Potassium Phosphate 30 MM in NS 275 ML IV SCH (15:00)
[2019-01-06 16:00] VITALS: BP 102/70
--- NOTE | 2019-01-06 18:30 | NUR ---
NURSE NOTES: Dr. Schneider notified that patient has had very little urine output today, 150 ml in urinal and incontinent x1 for whole shift. Abdomen distended and firm. Bladder scanned patient at 1815 results 804 ml. Also that no DVT prophylaxis is ordered at this time. Patient is comfort care only, no further orders or changes in POC.
[2019-01-06] MEDS: LORazepam Inj 2mg/ml 1ml IV PRN (19:00)
--- NOTE | 2019-01-06 19:24 | Neurology Progress Note ---
Interim History Interim History ROS Limited/Unobtainable: No Complaints: AMS Events: This visit was performed on January 06, [address] Dee. Interim History Awaiting SNF/ Hospice placement Review of Systems All Systems: reviewed and negative except above Objective Physical Exam Last Vital Signs Date Time Temp Pulse Resp B/P (MAP) Pulse Ox O2 Delivery O2 Flow Rate FiO2 01/06/19 16:00 97.5 106 20 102/70 (81) 91 01/06/19 09:00 Room Air 01/04/19 09:00 2.0 Laboratory Tests Test 01/06/19 06:20 White Blood Count 16.7 K/UL (4.8-10.8) H Red Blood Count 2.71 M/UL (4.70-6.10) L Hemoglobin 8.8 G/DL (14.2-18.0) L Hematocrit 27.7 % (42.0-52.0) L Mean Corpuscular Volume 102 FL (80-99) H Mean Corpuscular Hemoglobin 32.4 PG (27.0-31.0) H Mean Corpuscular Hemoglobin Concent 31.7 G/DL (32.0-36.0) L Red Cell Distribution Width 15.4 % (11.6-14.8) H Platelet Count 245 K/UL (150-450) Mean Platelet Volume 6.6 FL (6.5-10.1) Neutrophils (%) (Auto) % (45.0-75.0) Lymphocytes (%) (Auto) % (20.0-45.0) Monocytes (%) (Auto) % (1.0-10.0) Eosinophils (%) (Auto) % (0.0-3.0) Basophils (%) (Auto) % (0.0-2.0) Differential Total Cells Counted 100 Neutrophils % (Manual) 88 % (45-75) H Lymphocytes % (Manual) 7 % (20-45) L Monocytes % (Manual) 5 % (1-10) Eosinophils % (Manual) 0 % (0-3) Basophils % (Manual) 0 % (0-2) Band Neutrophils 0 % (0-8) Platelet Estimate Adequate Platelet Morphology Normal Polychromasia 2+ Hypochromasia 1+ Anisocytosis 1+ Macrocytosis 1+ Sodium Level 138 MMOL/L (136-145) Potassium Level 3.9 MMOL/L (3.5-5.1) Chloride Level 105 MMOL/L (98-107) Carbon Dioxide Level 25 MMOL/L (21-32) Anion Gap 8 mmol/L (5-15) Blood Urea Nitrogen 14 mg/dL (7-18) Creatinine 0.9 MG/DL (0.55-1.30) Estimat Glomerular Filtration Rate > 60 mL/min (>60) Glucose Level 146 MG/DL (74-106) H Calcium Level 6.7 MG/DL (8.5-10.1) L Phosphorus Level 2.1 MG/DL (2.5-4.9) L Magnesium Level 1.7 MG/DL (1.8-2.4) L Total Bilirubin 13.1 MG/DL (0.2-1.0) H Direct Bilirubin 11.9 MG/DL (0.0-0.3) H Aspartate Amino Transf (AST/SGOT) 64 U/L (15-37) H Alanine Aminotransferase (ALT/SGPT) 18 U/L (12-78) Alkaline Phosphatase 325 U/L (46-116) H Total Protein 4.6 G/DL (6.4-8.2) L Albumin 1.3 G/DL (3.4-5.0) L Globulin 3.3 g/dL Albumin/Globulin Ratio 0.4 (1.0-2.7) L General: well developed, other Head: other Neck: no rigidity EENT: other - Visible right nasal polyp, skin tag, lesion - Neurologic Exam Mental Status: awake, alert, other Speech: other Language: other Cranial Nerve II: other Cranial Nerves III, IV, : other Cranial Nerve V: other Cranial Nerve VII: other Cranial Nerve VIII: other Cranial Nerve IX: other Cranial Nerve X: no voice hoarseness, other Cranial Nerve XI: SCM symmetric, other Cranial Nerve XII: tongue midline, other Motor System: no involuntary movement, other Sensory: normal pinprick, normal light touch, normal position sense, normal graphesthesia, other Coordination: other - More appropriately verbal in conversation at times with depressed affect and difficulty following instructions during examination. Deep Tendon Reflexes: 1+ bicep (L), 1+ bicep (R), 1+ tricep (L), 1+ tricep (R) , 1+ brachioradialis (L), 1+ brachioradialis (R), 1+ knee (L), 1+ knee (R), 1+ ankle (L), 1+ ankle (R) Stance: other - Patient remains weak throughout all extremities with non focal exam. He is more appropriate in conversation today but remains non focal and encephalopathic Gait: other Objective Patient is alert and oriented to circumstances with intermittent episodes of agitation, apparently stood out of bed previously,. He remains non focal and weak throughout Impression/Recommendations Problems: (1) Acute upper GI bleed (2) Fecal impaction in rectum (3) Esophagitis (4) Alcoholic liver disease (5) Elevated LFTs (6) Acute alcoholic gastritis (7) Psychosis (8) Acute alcoholic intoxication (9) Acute encephalopathy (10) Hypocalcemia Status: not improved, unchanged Recommendations Continue Lactulose Continue Q4 Neuro obs CIWA protocol PT Frequent reorientation Maintenance of good sleep hygiene with nonessential care withheld overnights Consider additional enteral feeding methods HgB>8 Replace / Replete lytes Psych recommendations regarding best non-sedating behavioral medications with least hepatic excretion at this time. Oral feeding PRN all day given nutritional status and care goals Anika Pettit N.P. Jan 06, 2019 19:24
--- NOTE | 2019-01-06 19:30 | NUR ---
NURSE NOTES: Received report from BRANNON Becker and rounds done. Received pt in bed, asleep, aorusable by verbal stimuli, denies any pain at this time, no distress noted. PICC line TITO C/D/I. Safety measures maintained. Call light within reach. Will continue to monitor.
--- NOTE | 2019-01-06 19:45 | NUR ---
HAND-OFF: Report given to Lowell Iverson RN.
[2019-01-06 20:00] VITALS: BP 114/59
[2019-01-06] MEDS: Dyna-Hex 2% Top Sol 2oz TOPIC SCH (20:37)
[2019-01-07] VITALS: BP 99/63
[2019-01-07] MEDS: LORazepam Inj 2mg/ml 1ml IV PRN ×4 (01:56→18:37)
--- NOTE | 2019-01-07 03:05 | NUR ---
HAND-OFF: Report given to BRANNON Silver. Pt in stable condition.
[2019-01-07 04:00] VITALS: BP 96/63
[2019-01-07 06:07] LABS: HEMATOCRIT 28.1 % (42.0-52.0); HEMOGLOBIN 8.8 G/DL (14.2-18.0); MEAN CORPUSCULAR VOLUME 102 FL (80-99); PLATELET COUNT 272 K/UL (150-450); RED BLOOD COUNT 2.76 M/UL (4.70-6.10); RED CELL DISTRIBUTION WIDTH 15.2 % (11.6-14.8); WHITE BLOOD COUNT 17.4 K/UL (4.8-10.8)
[2019-01-07] MEDS: metroNIDAZOLE 250mg tab ORAL SCH (06:44)
--- NOTE | 2019-01-07 07:34 | NUR ---
HAND-OFF: Report given to BRANNON Giles.
--- NOTE | 2019-01-07 07:35 | NUR ---
NURSE NOTES: Patient lying in bed sleeping. No signs and symptoms of pain or distress at this time. IV dressing intact and dry. Bed lowest position. Call light within reach. Will continue to monitor.
[2019-01-07 07:43] LABS: ALANINE AMINOTRANSFERASE 21 U/L (12-78); ALBUMIN 1.4 G/DL (3.4-5.0); ALBUMIN/GLOBULIN RATIO 0.4 (1.0-2.7); ALKALINE PHOSPHATASE 366 U/L (46-116); ANION GAP 12 mmol/L (5-15); ASPARTATE AMINO TRANSFERASE 71 U/L (15-37); BILIRUBIN,TOTAL 12.9 MG/DL (0.2-1.0); BLOOD UREA NITROGEN 16 mg/dL (7-18); CALCIUM 6.9 MG/DL (8.5-10.1); CARBON DIOXIDE 23 MMOL/L (21-32); CHLORIDE 108 MMOL/L (98-107); CREATININE 0.9 MG/DL (0.55-1.30); POTASSIUM 3.8 MMOL/L (3.5-5.1); SODIUM 143 MMOL/L (136-145)
[2019-01-07 07:44] LABS: BILIRUBIN,DIRECT 11.7 MG/DL (0.0-0.3)
[2019-01-07 08:00] VITALS: BP 94/61
[2019-01-07] MEDS: Levofloxacin 750mg tab ORAL SCH (09:19)
[2019-01-07] MEDS: Lactulose 20gm/30ml UDC ORAL SCH ×3 (09:20→17:54)
--- NOTE | 2019-01-07 09:29 | General Progress Note ---
Assessment/Plan Problem List: (1) Abdominal pain ICD Codes: R10.9 - Unspecified abdominal pain SNOMED: 01248063 (2) Anemia ICD Codes: D64.9 - Anemia, unspecified SNOMED: 859057550 (3) Alcoholic liver disease ICD Codes: K70.9 - Alcoholic liver disease, unspecified SNOMED: 50502413 (4) Acute alcoholic gastritis ICD Codes: K29.20 - Alcoholic gastritis without bleeding SNOMED: 5146535 Qualifiers: Qualified Codes: K29.20 - Alcoholic gastritis without bleeding Status: not improved, unchanged Assessment/Plan: detox gi f/u cbc bmp dc plan snf if clear Subjective Constitutional: Reports: weakness Allergies: Coded Allergies: No Known Allergies (Verified , 10/22/06) All Systems: reviewed and negative except above Subjective sleepy anxious Objective Last 24 Hour Vital Signs Date Time Temp Pulse Resp B/P (MAP) Pulse Ox O2 Delivery O2 Flow Rate FiO2 01/07/19 04:00 97.8 20 96/63 (74) 91 01/07/19 00:00 98.1 74 20 99/63 (75) 100 01/06/19 21:00 Room Air 01/06/19 20:00 98.1 73 20 114/59 (77) 94 01/06/19 16:00 97.5 106 20 102/70 (81) 91 01/06/19 12:00 97.2 104 18 100/70 (80) 91 Intake and Output 01/06/19 01/07/19 19:00 07:00 Intake Total 400 ml Output Total 150 ml 800 ml Balance 250 ml -800 ml Intake Oral 400 ml Output Urine Total 150 ml 800 ml # Bowel Movements 1 3 Laboratory Tests 01/07/19 04:45: White Blood Count 17.4H, Red Blood Count 2.76L, Hemoglobin 8.8L, Hematocrit 28.1L, Mean Corpuscular Volume 102H, Mean Corpuscular Hemoglobin 32.0H, Mean Corpuscular Hemoglobin Concent 31.5L, Red Cell Distribution Width 15.2H, Platelet Count 272, Mean Platelet Volume 6.6, Neutrophils (%) (Auto) , Lymphocytes (%) (Auto) , Monocytes (%) (Auto) , Eosinophils (%) (Auto) , Basophils (%) (Auto) , Differential Total Cells Counted 100, Neutrophils % ( Manual) 92H, Lymphocytes % (Manual) 4L, Monocytes % (Manual) 4, Eosinophils % ( Manual) 0, Basophils % (Manual) 0, Band Neutrophils 0, Platelet Estimate Adequate, Platelet Morphology Normal, Polychromasia 1+, Hypochromasia 1+, Anisocytosis 1+, Macrocytosis 1+, Sodium Level 143, Potassium Level 3.8, Chloride Level 108H, Carbon Dioxide Level 23, Anion Gap 12, Blood Urea Nitrogen 16, Creatinine 0.9, Estimat Glomerular Filtration Rate > 60, Glucose Level 169H , Uric Acid 3.3, Calcium Level 6.9L, Phosphorus Level 3.0, Magnesium Level 2.6H , Total Bilirubin 12.9H, Direct Bilirubin 11.7H, Aspartate Amino Transf (AST/ SGOT) 71H, Alanine Aminotransferase (ALT/SGPT) 21, Alkaline Phosphatase 366H, Ammonia 57H, Total Protein 4.9L, Albumin 1.4L, Globulin 3.5, Albumin/Globulin Ratio 0.4L Height (Feet): 5 Height (Inches): 5.00 Weight (Pounds): 188 General Appearance: lethargic EENT: normal ENT inspection Neck: normal alignment Cardiovascular: normal peripheral pulses, normal rate, regular rhythm Respiratory/Chest: chest wall non-tender, lungs clear, normal breath sounds Abdomen: soft, hypoactive bowel sounds, distended Extremities: normal inspection Edema: no edema noted Arm (L), no edema noted Arm (R), no edema noted Leg (L), no edema noted Leg (R), no edema noted Pedal (L), no edema noted Pedal (R), no edema noted Generalized Neurologic: motor weakness Skin: normal pigmentation, warm/dry Corwin Martinez DO Jan 07, 2019 09:28
--- NOTE | 2019-01-07 10:00 | NUR ---
NURSE NOTES: Spoke to regarding embolism prevention and no new order. Per : patient is comfort care only. Will continue to monitor.
[2019-01-07] MEDS ORDERED: Tubing IV Secondary IV ONE (11:05)
[2019-01-07] MEDS ORDERED: NS 275ml ONE (11:05)
--- NOTE | 2019-01-07 11:09 | Infectious Diseases Prog Note ---
Assessment/Plan Assessment/Plan Assessment/Plan 58 yo male with PMHx of EtOH abuse, Depression and anxiety, SI who presented to the ED on 12/29/18 with N/V and abdominal pain. Afebrile Leukocytosis increased ( sp steroids ) Probable acute cholecystitis Likely due to gastritis from EtOH need -MRCP : Very limited exam, as described. Normal caliber bile ducts without definite filling defects to suggest choledocholithiasis Cholelithiasis. Gallbladder wall thickening, also described on prior sonogram. Most likely on the basis of hepatocellular derangement but the possibility of acute cholecystitis should also be considered. Ascites. Abnormal hepatic morphology, also previously described, suggestive of cirrhotic change -Abd US: Hepatomegaly. Coarsened hepatic echogenicity and surface nodularitysuggests cirrhosis. Ascites, not demonstrated previously. Cholelithiasis and gallbladder sludge, not evident previously. Gallbladder wall thickening and pericholecystic fluid, probably due to the hepatocellular derangements, but the possibility of acute cholecystitis should also be considered. Correlate with clinical findings, consider nuclear medicine hepatobiliary scan if clinically indicated. Negative for dilated bile ducts. Incidental finding small left renal cyst -CT abd/p: Chronic liver disease/cirrhosis with fatty infiltration, enlargement of the liver and stigmata of portal hypertension including ascites and splenomegaly, recanalized umbilical vein. Basilar atelectasis. Probable gallstones. Tiny bilateral renal hypodensities too small to characterize.Fecal impaction Cirrhosis EtOH abuse Hep A/B/C , HIV : Neg Depression and anxiety SI HIV (-) PLAN: - Change Levofloxacin # 6/7 and Flagyl # 6/7 to Zosyn for now ( for probable acute cholecystitis in view of increase of ) - D/C Zosyn #5 - Monitor CBC and Temps - Monitor clinically - possible [facility] Subjective Allergies: Coded Allergies: No Known Allergies (Verified , 10/22/06) Subjective confuse afebrile Objective Vital Signs Last 24 Hour Vital Signs Date Time Temp Pulse Resp B/P (MAP) Pulse Ox O2 Delivery O2 Flow Rate FiO2 01/07/19 09:00 Room Air 01/07/19 08:00 98.1 102 20 94/61 (72) 94 01/07/19 04:00 97.8 20 96/63 (74) 91 01/07/19 00:00 98.1 74 20 99/63 (75) 100 01/06/19 21:00 Room Air 01/06/19 20:00 98.1 73 20 114/59 (77) 94 01/06/19 16:00 97.5 106 20 102/70 (81) 91 01/06/19 12:00 97.2 104 18 100/70 (80) 91 Height (Feet): 5 Height (Inches): 5.00 Weight (Pounds): 188 Respiratory/Chest: normal breath sounds Cardiovascular: regular rhythm Abdomen: no organomegaly Laboratory Tests Test 01/07/19 04:45 White Blood Count 17.4 K/UL (4.8-10.8) H Red Blood Count 2.76 M/UL (4.70-6.10) L Hemoglobin 8.8 G/DL (14.2-18.0) L Hematocrit 28.1 % (42.0-52.0) L Mean Corpuscular Volume 102 FL (80-99) H Mean Corpuscular Hemoglobin 32.0 PG (27.0-31.0) H Mean Corpuscular Hemoglobin Concent 31.5 G/DL (32.0-36.0) L Red Cell Distribution Width 15.2 % (11.6-14.8) H Platelet Count 272 K/UL (150-450) Mean Platelet Volume 6.6 FL (6.5-10.1) Neutrophils (%) (Auto) % (45.0-75.0) Lymphocytes (%) (Auto) % (20.0-45.0) Monocytes (%) (Auto) % (1.0-10.0) Eosinophils (%) (Auto) % (0.0-3.0) Basophils (%) (Auto) % (0.0-2.0) Differential Total Cells Counted 100 Neutrophils % (Manual) 92 % (45-75) H Lymphocytes % (Manual) 4 % (20-45) L Monocytes % (Manual) 4 % (1-10) Eosinophils % (Manual) 0 % (0-3) Basophils % (Manual) 0 % (0-2) Band Neutrophils 0 % (0-8) Platelet Estimate Adequate Platelet Morphology Normal Polychromasia 1+ Hypochromasia 1+ Anisocytosis 1+ Macrocytosis 1+ Sodium Level 143 MMOL/L (136-145) Potassium Level 3.8 MMOL/L (3.5-5.1) Chloride Level 108 MMOL/L (98-107) H Carbon Dioxide Level 23 MMOL/L (21-32) Anion Gap 12 mmol/L (5-15) Blood Urea Nitrogen 16 mg/dL (7-18) Creatinine 0.9 MG/DL (0.55-1.30) Estimat Glomerular Filtration Rate > 60 mL/min (>60) Glucose Level 169 MG/DL (74-106) H Uric Acid 3.3 MG/DL (2.6-7.2) Calcium Level 6.9 MG/DL (8.5-10.1) L Phosphorus Level 3.0 MG/DL (2.5-4.9) Magnesium Level 2.6 MG/DL (1.8-2.4) H Total Bilirubin 12.9 MG/DL (0.2-1.0) H Direct Bilirubin 11.7 MG/DL (0.0-0.3) H Aspartate Amino Transf (AST/SGOT) 71 U/L (15-37) H Alanine Aminotransferase (ALT/SGPT) 21 U/L (12-78) Alkaline Phosphatase 366 U/L (46-116) H Ammonia 57 umol/L (11-32) H Total Protein 4.9 G/DL (6.4-8.2) L Albumin 1.4 G/DL (3.4-5.0) L Globulin 3.5 g/dL Albumin/Globulin Ratio 0.4 (1.0-2.7) L Current Medications Medications (Trade) Dose Ordered Sig/Clyde Route PRN Reason Start Time Stop Time Status Last Admin Dose Admin Acetaminophen (Tylenol) 650 mg Q4H PRN ORAL Mild Pain/Temp > 100.5 01/05/19 18:23 02/04/19 18:22 01/06/19 21:49 Chlorhexidine Gluconate (Sharmila-Hex 2%) 1 applic DAILY@1999 TOPIC 01/05/19 20:00 02/01/19 19:59 01/06/19 20:37 Dextrose (Dextrose 50%) 25 ml Q30M PRN IV Hypoglycemia 01/05/19 18:30 01/28/19 16:29 Dextrose (Dextrose 50%) 50 ml Q30M PRN IV Hypoglycemia 01/05/19 18:30 01/28/19 16:29 Lactulose (Cephulac) 30 gm THREE TIMES A DAY ORAL 01/06/19 09:00 02/01/19 08:59 01/07/19 09:20 Levofloxacin (Levaquin) 750 mg DAILY ORAL 01/06/19 09:00 01/08/19 08:59 01/07/19 09:19 Lorazepam (Ativan 2mg/ml 1ml) 0.5 mg Q4H PRN IV For Anxiety 01/05/19 18:24 01/12/19 18:23 01/07/19 08:07 Lorazepam (Ativan 2mg/ml 1ml) 2 mg Q1H PRN IV SEIZURES 01/05/19 18:24 01/12/19 18:23 Metronidazole (Flagyl) 250 mg Q8HR ORAL 01/05/19 22:00 01/08/19 13:59 01/07/19 06:44 Midodrine (Pro-Amatine) 5 mg THREE TIMES A DAY ORAL 01/06/19 09:00 02/01/19 12:59 01/07/19 09:19 Ondansetron HCl (Zofran) 4 mg Q6H PRN IVP Nausea & Vomiting 01/05/19 18:25 02/04/19 18:24 Pantoprazole (Protonix) 40 mg BID ORAL 01/06/19 09:00 01/28/19 17:59 01/07/19 09:19 Prednisone (predniSONE) 40 mg DAILY ORAL 01/06/19 09:00 01/09/19 09:01 01/07/19 09:19 Rifaximin (Xifaxan) 550 mg EVERY 12 HOURS ORAL 01/05/19 21:00 01/09/19 08:59 01/07/19 09:19 Mateo Lyons MD Jan 07, 2019 11:09
--- NOTE | 2019-01-07 11:37 | Nephrology Progress Note ---
Assessment/Plan Problem List: (1) Alcoholic liver disease (2) Anemia (3) Electrolyte disorder (4) Jaundice Assessment Acute Alcoholic Gastritis / Encephalopathy - Intoxication Alcoholic Hepatitis Anemia Hypokalemia Psych disease Plan labs noted on PO steroids now has PICC now K and Mag and Phos supplement as needed Monitor lytes / Lfts per orders Subjective ROS Limited/Unobtainable: No Constitutional: Reports: malaise, weakness Objective Objective Last 24 Hour Vital Signs Date Time Temp Pulse Resp B/P (MAP) Pulse Ox O2 Delivery O2 Flow Rate FiO2 01/07/19 09:00 Room Air 01/07/19 08:00 98.1 102 20 94/61 (72) 94 01/07/19 04:00 97.8 20 96/63 (74) 91 01/07/19 00:00 98.1 74 20 99/63 (75) 100 01/06/19 21:00 Room Air 01/06/19 20:00 98.1 73 20 114/59 (77) 94 01/06/19 16:00 97.5 106 20 102/70 (81) 91 01/06/19 12:00 97.2 104 18 100/70 (80) 91 Intake and Output 01/06/19 01/07/19 18:59 06:59 Intake Total 400 ml Output Total 150 ml 800 ml Balance 250 ml -800 ml Intake Oral 400 ml Output Urine Total 150 ml 800 ml # Bowel Movements 1 3 Laboratory Tests 01/07/19 04:45: White Blood Count 17.4H, Red Blood Count 2.76L, Hemoglobin 8.8L, Hematocrit 28.1L, Mean Corpuscular Volume 102H, Mean Corpuscular Hemoglobin 32.0H, Mean Corpuscular Hemoglobin Concent 31.5L, Red Cell Distribution Width 15.2H, Platelet Count 272, Mean Platelet Volume 6.6, Neutrophils (%) (Auto) , Lymphocytes (%) (Auto) , Monocytes (%) (Auto) , Eosinophils (%) (Auto) , Basophils (%) (Auto) , Differential Total Cells Counted 100, Neutrophils % ( Manual) 92H, Lymphocytes % (Manual) 4L, Monocytes % (Manual) 4, Eosinophils % ( Manual) 0, Basophils % (Manual) 0, Band Neutrophils 0, Platelet Estimate Adequate, Platelet Morphology Normal, Polychromasia 1+, Hypochromasia 1+, Anisocytosis 1+, Macrocytosis 1+, Sodium Level 143, Potassium Level 3.8, Chloride Level 108H, Carbon Dioxide Level 23, Anion Gap 12, Blood Urea Nitrogen 16, Creatinine 0.9, Estimat Glomerular Filtration Rate > 60, Glucose Level 169H , Uric Acid 3.3, Calcium Level 6.9L, Phosphorus Level 3.0, Magnesium Level 2.6H , Total Bilirubin 12.9H, Direct Bilirubin 11.7H, Aspartate Amino Transf (AST/ SGOT) 71H, Alanine Aminotransferase (ALT/SGPT) 21, Alkaline Phosphatase 366H, Ammonia 57H, Total Protein 4.9L, Albumin 1.4L, Globulin 3.5, Albumin/Globulin Ratio 0.4L Height (Feet): 5 Height (Inches): 5.00 Weight (Pounds): 188 General Appearance: no apparent distress Objective no change Leonard Bautista MD Jan 07, 2019 11:37
[2019-01-07 12:00] VITALS: BP 85/67
[2019-01-07] MEDS: Piperacillin/Tazobactam 3.375 GM in NS 110 ML IVPB SCH ×2 (14:32→21:45)
[2019-01-07 16:00] VITALS: BP 107/61
--- NOTE | 2019-01-07 19:30 | NUR ---
HAND-OFF: Report given to Jd SOUTH. Patient in stable condition.
--- NOTE | 2019-01-07 19:31 | NUR ---
NURSE NOTES: Report taken from BRANNON Giles. patient is awake and in bed, A&Ox3, not oriented to time/place. No signs of distress on room air. patient is stating he is having a lot pain, to the point that "he just wants to becuase of the pain". He does not want to continue through this route, however he is open to our continuing care. Abdomen is extended, but sound present. Has some bruising on left UE, otherwise skin is intact. Awaiting placement in different facility. PICC, TITO c/d/i and patent, no fluids running currently. Bed in lowest position, call light within reach.
[2019-01-07 20:00] VITALS: BP 112/65
[2019-01-07] MEDS: Dyna-Hex 2% Top Sol 2oz TOPIC SCH (20:00)
--- NOTE | 2019-01-07 23:41 | Neurology Progress Note ---
Interim History Interim History ROS Limited/Unobtainable: No Complaints: AMS Events: This visit was performed on January 07, [address] Dee. Interim History No new events, patient's confusion/orientation waxes and wanes. Objective Physical Exam Last Vital Signs Date Time Temp Pulse Resp B/P (MAP) Pulse Ox O2 Delivery O2 Flow Rate FiO2 01/07/19 21:00 Room Air 01/07/19 16:00 98.0 96 20 107/61 (76) 92 01/04/19 09:00 2.0 Laboratory Tests Test 01/07/19 04:45 White Blood Count 17.4 K/UL (4.8-10.8) H Red Blood Count 2.76 M/UL (4.70-6.10) L Hemoglobin 8.8 G/DL (14.2-18.0) L Hematocrit 28.1 % (42.0-52.0) L Mean Corpuscular Volume 102 FL (80-99) H Mean Corpuscular Hemoglobin 32.0 PG (27.0-31.0) H Mean Corpuscular Hemoglobin Concent 31.5 G/DL (32.0-36.0) L Red Cell Distribution Width 15.2 % (11.6-14.8) H Platelet Count 272 K/UL (150-450) Mean Platelet Volume 6.6 FL (6.5-10.1) Neutrophils (%) (Auto) % (45.0-75.0) Lymphocytes (%) (Auto) % (20.0-45.0) Monocytes (%) (Auto) % (1.0-10.0) Eosinophils (%) (Auto) % (0.0-3.0) Basophils (%) (Auto) % (0.0-2.0) Differential Total Cells Counted 100 Neutrophils % (Manual) 92 % (45-75) H Lymphocytes % (Manual) 4 % (20-45) L Monocytes % (Manual) 4 % (1-10) Eosinophils % (Manual) 0 % (0-3) Basophils % (Manual) 0 % (0-2) Band Neutrophils 0 % (0-8) Platelet Estimate Adequate Platelet Morphology Normal Polychromasia 1+ Hypochromasia 1+ Anisocytosis 1+ Macrocytosis 1+ Sodium Level 143 MMOL/L (136-145) Potassium Level 3.8 MMOL/L (3.5-5.1) Chloride Level 108 MMOL/L (98-107) H Carbon Dioxide Level 23 MMOL/L (21-32) Anion Gap 12 mmol/L (5-15) Blood Urea Nitrogen 16 mg/dL (7-18) Creatinine 0.9 MG/DL (0.55-1.30) Estimat Glomerular Filtration Rate > 60 mL/min (>60) Glucose Level 169 MG/DL (74-106) H Uric Acid 3.3 MG/DL (2.6-7.2) Calcium Level 6.9 MG/DL (8.5-10.1) L Phosphorus Level 3.0 MG/DL (2.5-4.9) Magnesium Level 2.6 MG/DL (1.8-2.4) H Total Bilirubin 12.9 MG/DL (0.2-1.0) H Direct Bilirubin 11.7 MG/DL (0.0-0.3) H Aspartate Amino Transf (AST/SGOT) 71 U/L (15-37) H Alanine Aminotransferase (ALT/SGPT) 21 U/L (12-78) Alkaline Phosphatase 366 U/L (46-116) H Ammonia 57 umol/L (11-32) H Total Protein 4.9 G/DL (6.4-8.2) L Albumin 1.4 G/DL (3.4-5.0) L Globulin 3.5 g/dL Albumin/Globulin Ratio 0.4 (1.0-2.7) L General: well developed, other Head: other Neck: no rigidity EENT: other - Visible right nasal polyp, skin tag, lesion - Neurologic Exam Mental Status: awake, alert, other Speech: other Language: other Cranial Nerve II: fundus normal, visual osorio, other Cranial Nerves III, IV, : PERRLA, EOMI, other Cranial Nerve V: normal facial sensations, temporales function normal, other Cranial Nerve VII: no facial asymmetry, other Cranial Nerve VIII: normal hearing, other Cranial Nerve IX: normal palate elevation, other Cranial Nerve X: no voice hoarseness, other Cranial Nerve XI: SCM symmetric, other Cranial Nerve XII: tongue midline, other Motor System: no involuntary movement, other Sensory: normal pinprick, normal light touch, normal position sense, normal graphesthesia, other Coordination: other - More appropriately verbal in conversation at times with depressed affect and difficulty following instructions during examination. Deep Tendon Reflexes: 1+ bicep (L), 1+ bicep (R), 1+ tricep (L), 1+ tricep (R) , 1+ brachioradialis (L), 1+ brachioradialis (R), 1+ knee (L), 1+ knee (R), 1+ ankle (L), 1+ ankle (R) Stance: other - Patient remains weak throughout all extremities with non focal exam. He is more appropriate in conversation today but remains non focal and encephalopathic Gait: other Objective Patient is alert and oriented to circumstances with intermittent episodes of agitation, apparently stood out of bed previously,. He remains non focal and weak throughout His LOC/Orientation waxes and wanes. Today he is tangentially concerned with water. Impression/Recommendations Problems: (1) Acute upper GI bleed (2) Fecal impaction in rectum (3) Esophagitis (4) Alcoholic liver disease (5) Elevated LFTs (6) Acute alcoholic gastritis (7) Psychosis (8) Acute alcoholic intoxication (9) Acute encephalopathy (10) Hypocalcemia Status: stable, unchanged Recommendations Continue Lactulose Continue Q4 Neuro obs CIWA protocol PT Frequent reorientation Maintenance of good sleep hygiene with nonessential care withheld overnights HgB>8 Replace / Replete lytes Psych recommendations regarding best non-sedating behavioral medications with least hepatic excretion at this time. Oral feeding PRN all day given nutritional status and care goals For hospice care- accomodations pending, no accepting facilities at this time. Patient is stable for discharge from a neurological perspective but we will continue to follow and track any changes. Anika Pettit N.P. Jan 07, 2019 23:41
--- NOTE | 2019-01-08 04:23 | NUR ---
NURSE NOTES: Patient is increasingly confused and agitated. Does not remember who the medical staff is. Refused to be cleaned at the time.
[2019-01-08] MEDS: Piperacillin/Tazobactam 3.375 GM in NS 110 ML IVPB SCH ×3 (05:09→21:09)
[2019-01-08 05:59] LABS: HEMATOCRIT 29.3 % (42.0-52.0); HEMOGLOBIN 9.3 G/DL (14.2-18.0); MEAN CORPUSCULAR VOLUME 101 FL (80-99); PLATELET COUNT 279 K/UL (150-450); RED CELL DISTRIBUTION WIDTH 15.4 % (11.6-14.8); WHITE BLOOD COUNT 21.3 K/UL (4.8-10.8)
[2019-01-08 06:21] LABS: ANION GAP 10 mmol/L (5-15); BLOOD UREA NITROGEN 19 mg/dL (7-18); CALCIUM 7.3 MG/DL (8.5-10.1); CARBON DIOXIDE 25 MMOL/L (21-32); CHLORIDE 108 MMOL/L (98-107); CREATININE 0.9 MG/DL (0.55-1.30); POTASSIUM 3.9 MMOL/L (3.5-5.1); SODIUM 142 MMOL/L (136-145)
--- NOTE | 2019-01-08 07:38 | NUR ---
HAND-OFF: Report given to BRANNON Giles. Patient is asleep, VS stable.
[2019-01-08 08:00] VITALS: BP 90/65
[2019-01-08] MEDS: Lactulose 20gm/30ml UDC ORAL SCH ×3 (09:20→17:48)
[2019-01-08] MEDS: LORazepam Inj 2mg/ml 1ml IV PRN ×2 (09:20→14:37)
--- NOTE | 2019-01-08 10:11 | General Progress Note ---
Assessment/Plan Problem List: (1) Abdominal pain ICD Codes: R10.9 - Unspecified abdominal pain SNOMED: 81888416 (2) Anemia ICD Codes: D64.9 - Anemia, unspecified SNOMED: 426091195 (3) Alcoholic liver disease ICD Codes: K70.9 - Alcoholic liver disease, unspecified SNOMED: 63989822 (4) Acute alcoholic gastritis ICD Codes: K29.20 - Alcoholic gastritis without bleeding SNOMED: 1896204 Qualifiers: Qualified Codes: K29.20 - Alcoholic gastritis without bleeding Status: not improved, unchanged Assessment/Plan: detox gi f/u cbc bmp dc plan snf if clear Subjective Constitutional: Reports: weakness Allergies: Coded Allergies: No Known Allergies (Verified , 10/22/06) All Systems: reviewed and negative except above Subjective sleepy anxious Objective Last 24 Hour Vital Signs Date Time Temp Pulse Resp B/P (MAP) Pulse Ox O2 Delivery O2 Flow Rate FiO2 01/07/19 21:00 Room Air 01/07/19 20:00 98.0 96 20 112/65 (81) 93 01/07/19 16:00 98.0 96 20 107/61 (76) 92 01/07/19 12:00 97.5 103 20 85/67 (73) 95 Intake and Output 01/07/19 01/08/19 19:00 07:00 Intake Total 800 ml 725 ml Output Total 600 ml Balance 200 ml 725 ml Intake Oral 800 ml 725 ml Output Urine Total 600 ml # Voids 3 # Bowel Movements 2 2 Laboratory Tests 01/08/19 05:20: White Blood Count 21.3H, Red Blood Count 2.90L, Hemoglobin 9.3L, Hematocrit 29.3L, Mean Corpuscular Volume 101H, Mean Corpuscular Hemoglobin 32.1H, Mean Corpuscular Hemoglobin Concent 31.8L, Red Cell Distribution Width 15.4H, Platelet Count 279, Mean Platelet Volume 6.9, Neutrophils (%) (Auto) , Lymphocytes (%) (Auto) , Monocytes (%) (Auto) , Eosinophils (%) (Auto) , Basophils (%) (Auto) , Differential Total Cells Counted 100, Neutrophils % ( Manual) 87H, Lymphocytes % (Manual) 3L, Monocytes % (Manual) 7, Eosinophils % ( Manual) 0, Basophils % (Manual) 0, Band Neutrophils 3, Platelet Estimate Adequate, Platelet Morphology Normal, Polychromasia 1+, Hypochromasia 1+, Anisocytosis 1+, Macrocytosis 1+, Sodium Level 142, Potassium Level 3.9, Chloride Level 108H, Carbon Dioxide Level 25, Anion Gap 10, Blood Urea Nitrogen 19H, Creatinine 0.9, Estimat Glomerular Filtration Rate > 60, Glucose Level 149H , Calcium Level 7.3L Height (Feet): 5 Height (Inches): 5.00 Weight (Pounds): 188 General Appearance: lethargic EENT: normal ENT inspection Neck: normal alignment Cardiovascular: normal peripheral pulses, normal rate, regular rhythm Respiratory/Chest: chest wall non-tender, lungs clear, normal breath sounds Abdomen: soft, hypoactive bowel sounds, distended Extremities: normal inspection Edema: no edema noted Arm (L), no edema noted Arm (R), no edema noted Leg (L), no edema noted Leg (R), no edema noted Pedal (L), no edema noted Pedal (R), no edema noted Generalized Neurologic: motor weakness Skin: normal pigmentation, warm/dry Corwin Martinez DO Jan 08, 2019 10:11
[2019-01-08 12:00] VITALS: BP 105/70
--- NOTE | 2019-01-08 13:21 | Nephrology Progress Note ---
Assessment/Plan Problem List: (1) Alcoholic liver disease (2) Anemia (3) Electrolyte disorder (4) Jaundice Assessment Acute Alcoholic Gastritis / Encephalopathy - Intoxication Alcoholic Hepatitis Anemia Hypokalemia Psych disease Plan labs noted on PO steroids now has PICC now K and Mag and Phos supplement as needed Monitor lytes / Lfts per orders Subjective ROS Limited/Unobtainable: No Constitutional: Reports: malaise Objective Objective Last 24 Hour Vital Signs Date Time Temp Pulse Resp B/P (MAP) Pulse Ox O2 Delivery O2 Flow Rate FiO2 01/08/19 09:00 Room Air 01/08/19 08:00 98.1 113 20 90/65 (73) 92 01/07/19 21:00 Room Air 01/07/19 20:00 98.0 96 20 112/65 (81) 93 01/07/19 16:00 98.0 96 20 107/61 (76) 92 Intake and Output 01/07/19 01/08/19 19:00 07:00 Intake Total 800 ml 725 ml Output Total 600 ml Balance 200 ml 725 ml Intake Oral 800 ml 725 ml Output Urine Total 600 ml # Voids 3 # Bowel Movements 2 2 Laboratory Tests 01/08/19 05:20: White Blood Count 21.3H, Red Blood Count 2.90L, Hemoglobin 9.3L, Hematocrit 29.3L, Mean Corpuscular Volume 101H, Mean Corpuscular Hemoglobin 32.1H, Mean Corpuscular Hemoglobin Concent 31.8L, Red Cell Distribution Width 15.4H, Platelet Count 279, Mean Platelet Volume 6.9, Neutrophils (%) (Auto) , Lymphocytes (%) (Auto) , Monocytes (%) (Auto) , Eosinophils (%) (Auto) , Basophils (%) (Auto) , Differential Total Cells Counted 100, Neutrophils % ( Manual) 87H, Lymphocytes % (Manual) 3L, Monocytes % (Manual) 7, Eosinophils % ( Manual) 0, Basophils % (Manual) 0, Band Neutrophils 3, Platelet Estimate Adequate, Platelet Morphology Normal, Polychromasia 1+, Hypochromasia 1+, Anisocytosis 1+, Macrocytosis 1+, Sodium Level 142, Potassium Level 3.9, Chloride Level 108H, Carbon Dioxide Level 25, Anion Gap 10, Blood Urea Nitrogen 19H, Creatinine 0.9, Estimat Glomerular Filtration Rate > 60, Glucose Level 149H , Calcium Level 7.3L Height (Feet): 5 Height (Inches): 5.00 Weight (Pounds): 188 General Appearance: no apparent distress Cardiovascular: tachycardia Respiratory/Chest: decreased breath sounds Abdomen: distended Objective no change Leonard Bautista MD Jan 08, 2019 13:21
[2019-01-08 16:00] VITALS: BP 99/65
--- NOTE | 2019-01-08 16:46 | Cardiac Electrophysiology PN ---
Assessment/Plan Assessment/Plan 1. Hypotension 90s and sinus tach 100s.Continue Midodrine 5 tid 2. Atypical Chest pain . EKG nonspecific ST-T wave abnormality. No SC. Echo EF 55% 3. Persistent hypokalemia. Corrected. 4. Leukocytosis. On Abx and steroid 5. ETOH Cirrhosis with Bilirubin 14. FU GI. 6. Hospice Care DW RN Subjective Subjective Is hospice care.No events Objective Last 24 Hour Vital Signs Date Time Temp Pulse Resp B/P (MAP) Pulse Ox O2 Delivery O2 Flow Rate FiO2 01/08/19 12:00 98.0 121 18 105/70 (82) 93 01/08/19 09:00 Room Air 01/08/19 08:00 98.1 113 20 90/65 (73) 92 01/07/19 21:00 Room Air 01/07/19 20:00 98.0 96 20 112/65 (81) 93 Intake and Output 01/07/19 01/08/19 19:00 07:00 Intake Total 800 ml 725 ml Output Total 600 ml Balance 200 ml 725 ml Intake Oral 800 ml 725 ml Output Urine Total 600 ml # Voids 3 # Bowel Movements 2 2 Laboratory Tests Test 01/08/19 05:20 White Blood Count 21.3 K/UL (4.8-10.8) H Red Blood Count 2.90 M/UL (4.70-6.10) L Hemoglobin 9.3 G/DL (14.2-18.0) L Hematocrit 29.3 % (42.0-52.0) L Mean Corpuscular Volume 101 FL (80-99) H Mean Corpuscular Hemoglobin 32.1 PG (27.0-31.0) H Mean Corpuscular Hemoglobin Concent 31.8 G/DL (32.0-36.0) L Red Cell Distribution Width 15.4 % (11.6-14.8) H Platelet Count 279 K/UL (150-450) Mean Platelet Volume 6.9 FL (6.5-10.1) Neutrophils (%) (Auto) % (45.0-75.0) Lymphocytes (%) (Auto) % (20.0-45.0) Monocytes (%) (Auto) % (1.0-10.0) Eosinophils (%) (Auto) % (0.0-3.0) Basophils (%) (Auto) % (0.0-2.0) Differential Total Cells Counted 100 Neutrophils % (Manual) 87 % (45-75) H Lymphocytes % (Manual) 3 % (20-45) L Monocytes % (Manual) 7 % (1-10) Eosinophils % (Manual) 0 % (0-3) Basophils % (Manual) 0 % (0-2) Band Neutrophils 3 % (0-8) Platelet Estimate Adequate Platelet Morphology Normal Polychromasia 1+ Hypochromasia 1+ Anisocytosis 1+ Macrocytosis 1+ Sodium Level 142 MMOL/L (136-145) Potassium Level 3.9 MMOL/L (3.5-5.1) Chloride Level 108 MMOL/L (98-107) H Carbon Dioxide Level 25 MMOL/L (21-32) Anion Gap 10 mmol/L (5-15) Blood Urea Nitrogen 19 mg/dL (7-18) H Creatinine 0.9 MG/DL (0.55-1.30) Estimat Glomerular Filtration Rate > 60 mL/min (>60) Glucose Level 149 MG/DL (74-106) H Calcium Level 7.3 MG/DL (8.5-10.1) L Objective General Appearance: No apparent distress, alert HEENT: Jaundiced Cardiovascular: normal S1 and S2 and no murmur Respiratory/Chest: normal breath sounds, no respiratory distress Abdominal Exam: normal bowel sounds, non tender, soft with ascites Extremities: normal range of motion, non-tender. 1 plus edema Franck Saeed MD Jan 08, 2019 16:46
--- NOTE | 2019-01-08 18:33 | NUR ---
CASE MANAGEMENT:REVIEW 01/07/19 SI: ACUTE ENCEPHALOPATHY ALCOHOLIC LIVER DISEASE T 97.5 HR 103 RR 20 B/P 85/67 SATS 95% ON RA WBC 17.4 CL 108 GLU 169 CA 6.9 MG 2.6 TBILI 12.9 DBILI 11.7 AST 71 ALP 366 AMMONIA 57 IS: FLAGYL PO Q8HRS LEVAQUIN PO QD LACTULOSE PO TID MIDODRINE PO TID PROTONIX PO BID PREDNISONE PO QD RIFAXIMIN PO Q12 : MED/SURG STATUS PLAN: DC PLANNING 01/08/19 SI: ACUTE ENCEPHALOPATHY ALCOHOLIC LIVER DISEASE T 98.1 HR 113 RR 20 B/P 90/65 SATS 92% ON RA WBC 21.3 CL 108 BUN 19 GLU 149 CA 7.3 IS: FLAGYL PO Q8HRS LEVAQUIN PO QD LACTULOSE PO TID MIDODRINE PO TID PROTONIX PO BID PREDNISONE PO QD RIFAXIMIN PO Q12 : MED/SURG STATUS PLAN: DC PLANNING
--- NOTE | 2019-01-08 19:27 | NUR ---
HAND-OFF: Report given to Jd SOUTH. Patient in stable condition.
--- NOTE | 2019-01-08 19:27 | NUR ---
NURSE NOTES: Report taken from BRANNON Giles. Patient is awake and in bed, A&Ox2. Got confused and slightly agitated during shift change. Spoke with patient calmly and was able to get him settled in bed. No signs of distress on room air. Complaining of fully body itching and slight pain states that "its cause he is not drinking". Some slight bruising on bilateral UE. No further skin issues. Abdomen is distended with distant bowel sounds. PICC line c/d/i and currently running TKO fluid at 10mls/hr, antibiotics to be hung. Bed in lowest position, alarm on, call light within reach.
[2019-01-08 20:00] VITALS: BP 91/57
[2019-01-08] MEDS: Dyna-Hex 2% Top Sol 2oz TOPIC SCH (20:00)
--- NOTE | 2019-01-08 23:56 | Neurology Progress Note ---
Interim History Interim History ROS Limited/Unobtainable: No Complaints: AMS Events: This visit was performed on January 08, [address] Dee. Interim History D/C planning pending, no new clinical events. Review of Systems All Systems: reviewed and negative except above Objective Physical Exam Last Vital Signs Date Time Temp Pulse Resp B/P (MAP) Pulse Ox O2 Delivery O2 Flow Rate FiO2 01/08/19 21:00 Room Air 01/08/19 20:00 98.6 96 18 91/57 (68) 93 01/04/19 09:00 2.0 Laboratory Tests Test 01/08/19 05:20 White Blood Count 21.3 K/UL (4.8-10.8) H Red Blood Count 2.90 M/UL (4.70-6.10) L Hemoglobin 9.3 G/DL (14.2-18.0) L Hematocrit 29.3 % (42.0-52.0) L Mean Corpuscular Volume 101 FL (80-99) H Mean Corpuscular Hemoglobin 32.1 PG (27.0-31.0) H Mean Corpuscular Hemoglobin Concent 31.8 G/DL (32.0-36.0) L Red Cell Distribution Width 15.4 % (11.6-14.8) H Platelet Count 279 K/UL (150-450) Mean Platelet Volume 6.9 FL (6.5-10.1) Neutrophils (%) (Auto) % (45.0-75.0) Lymphocytes (%) (Auto) % (20.0-45.0) Monocytes (%) (Auto) % (1.0-10.0) Eosinophils (%) (Auto) % (0.0-3.0) Basophils (%) (Auto) % (0.0-2.0) Differential Total Cells Counted 100 Neutrophils % (Manual) 87 % (45-75) H Lymphocytes % (Manual) 3 % (20-45) L Monocytes % (Manual) 7 % (1-10) Eosinophils % (Manual) 0 % (0-3) Basophils % (Manual) 0 % (0-2) Band Neutrophils 3 % (0-8) Platelet Estimate Adequate Platelet Morphology Normal Polychromasia 1+ Hypochromasia 1+ Anisocytosis 1+ Macrocytosis 1+ Sodium Level 142 MMOL/L (136-145) Potassium Level 3.9 MMOL/L (3.5-5.1) Chloride Level 108 MMOL/L (98-107) H Carbon Dioxide Level 25 MMOL/L (21-32) Anion Gap 10 mmol/L (5-15) Blood Urea Nitrogen 19 mg/dL (7-18) H Creatinine 0.9 MG/DL (0.55-1.30) Estimat Glomerular Filtration Rate > 60 mL/min (>60) Glucose Level 149 MG/DL (74-106) H Calcium Level 7.3 MG/DL (8.5-10.1) L General: well developed, other Head: other Neck: no rigidity EENT: other - Visible right nasal polyp, skin tag, lesion - Neurologic Exam Mental Status: awake, alert, other Speech: other Language: other Cranial Nerve II: other Cranial Nerves III, IV, : other Cranial Nerve V: other Cranial Nerve VII: other Cranial Nerve VIII: other Cranial Nerve IX: other Cranial Nerve X: no voice hoarseness, other Cranial Nerve XI: SCM symmetric, other Cranial Nerve XII: tongue midline, other Motor System: no involuntary movement, other Sensory: normal pinprick, normal light touch, normal position sense, normal graphesthesia, other Coordination: other - More appropriately verbal in conversation at times with depressed affect and difficulty following instructions during examination. Deep Tendon Reflexes: 1+ bicep (L), 1+ bicep (R), 1+ tricep (L), 1+ tricep (R) , 1+ brachioradialis (L), 1+ brachioradialis (R), 1+ knee (L), 1+ knee (R), 1+ ankle (L), 1+ ankle (R) Stance: other - Patient remains weak throughout all extremities with non focal exam. He is more appropriate in conversation today but remains non focal and encephalopathic Gait: other Objective Patient is alert and oriented to circumstances with intermittent episodes of agitation/ worsening confusion. He remains non focal and diffusely weak throughout Impression/Recommendations Problems: (1) Acute upper GI bleed (2) Fecal impaction in rectum (3) Esophagitis (4) Alcoholic liver disease (5) Elevated LFTs (6) Acute alcoholic gastritis (7) Psychosis (8) Acute alcoholic intoxication (9) Acute encephalopathy (10) Hypocalcemia Status: stable, unchanged Recommendations Continue Lactulose Continue Q4 Neuro obs CIWA protocol PT Frequent reorientation Maintenance of good sleep hygiene with nonessential care withheld overnights HgB>8 Replace / Replete lytes Psych recommendations regarding best non-sedating behavioral medications with least hepatic excretion at this time. Oral feeding PRN all day given nutritional status and care goals Stable for discharge from a neurological perspective but we will continue to follow along and track for any changes. Anika Pettit N.P. Jan 08, 2019 23:56
[2019-01-09] MEDS: LORazepam Inj 2mg/ml 1ml IV PRN (00:02)
[2019-01-09 04:00] VITALS: BP 101/61
--- NOTE | 2019-01-09 05:19 | Cardiac Electrophysiology PN ---
Assessment/Plan Assessment/Plan 1. Hypotension 90s and sinus tach 100s. Better on Midodrine 10 tid 2. Atypical Chest pain . EKG nonspecific ST-T wave abnormality. No CO. Echo EF 55% 3. Persistent hypokalemia. Corrected. 4. Leukocytosis. On Abx and steroid 5. ETOH Cirrhosis with Bilirubin 14. FU GI. 6. Hospice Care Subjective Subjective No events on NMB. Placement pending Objective Last 24 Hour Vital Signs Date Time Temp Pulse Resp B/P (MAP) Pulse Ox O2 Delivery O2 Flow Rate FiO2 01/09/19 04:00 98.4 97 18 101/61 (74) 95 01/08/19 21:00 Room Air 01/08/19 20:00 98.6 96 18 91/57 (68) 93 01/08/19 16:00 98.2 106 18 99/65 (76) 95 01/08/19 12:00 98.0 121 18 105/70 (82) 93 01/08/19 09:00 Room Air 01/08/19 08:00 98.1 113 20 90/65 (73) 92 Intake and Output 01/08/19 01/09/19 18:59 06:59 Intake Total 600 ml Balance 600 ml Intake Oral 600 ml # Voids 3 # Bowel Movements 1 Laboratory Tests Test 01/08/19 05:20 White Blood Count 21.3 K/UL (4.8-10.8) H Red Blood Count 2.90 M/UL (4.70-6.10) L Hemoglobin 9.3 G/DL (14.2-18.0) L Hematocrit 29.3 % (42.0-52.0) L Mean Corpuscular Volume 101 FL (80-99) H Mean Corpuscular Hemoglobin 32.1 PG (27.0-31.0) H Mean Corpuscular Hemoglobin Concent 31.8 G/DL (32.0-36.0) L Red Cell Distribution Width 15.4 % (11.6-14.8) H Platelet Count 279 K/UL (150-450) Mean Platelet Volume 6.9 FL (6.5-10.1) Neutrophils (%) (Auto) % (45.0-75.0) Lymphocytes (%) (Auto) % (20.0-45.0) Monocytes (%) (Auto) % (1.0-10.0) Eosinophils (%) (Auto) % (0.0-3.0) Basophils (%) (Auto) % (0.0-2.0) Differential Total Cells Counted 100 Neutrophils % (Manual) 87 % (45-75) H Lymphocytes % (Manual) 3 % (20-45) L Monocytes % (Manual) 7 % (1-10) Eosinophils % (Manual) 0 % (0-3) Basophils % (Manual) 0 % (0-2) Band Neutrophils 3 % (0-8) Platelet Estimate Adequate Platelet Morphology Normal Polychromasia 1+ Hypochromasia 1+ Anisocytosis 1+ Macrocytosis 1+ Sodium Level 142 MMOL/L (136-145) Potassium Level 3.9 MMOL/L (3.5-5.1) Chloride Level 108 MMOL/L (98-107) H Carbon Dioxide Level 25 MMOL/L (21-32) Anion Gap 10 mmol/L (5-15) Blood Urea Nitrogen 19 mg/dL (7-18) H Creatinine 0.9 MG/DL (0.55-1.30) Estimat Glomerular Filtration Rate > 60 mL/min (>60) Glucose Level 149 MG/DL (74-106) H Calcium Level 7.3 MG/DL (8.5-10.1) L Objective General Appearance: No apparent distress, alert HEENT: Jaundiced Cardiovascular: normal S1 and S2 and no murmur Respiratory/Chest: normal breath sounds, no respiratory distress Abdominal Exam: normal bowel sounds, non tender, soft with ascites Extremities: normal range of motion, non-tender. 1 plus edema Franck Saeed MD Jan 09, 2019 05:18
[2019-01-09 05:44] LABS: HEMATOCRIT 28.1 % (42.0-52.0); MEAN CORPUSCULAR VOLUME 100 FL (80-99); PLATELET COUNT 283 K/UL (150-450); RED BLOOD COUNT 2.81 M/UL (4.70-6.10); RED CELL DISTRIBUTION WIDTH 15.2 % (11.6-14.8)
[2019-01-09 05:52] LABS: WHITE BLOOD COUNT 23.3 K/UL (4.8-10.8)
[2019-01-09 05:54] LABS: ANION GAP 8 mmol/L (5-15); BLOOD UREA NITROGEN 22 mg/dL (7-18); CALCIUM 7.2 MG/DL (8.5-10.1); CARBON DIOXIDE 25 MMOL/L (21-32); CHLORIDE 107 MMOL/L (98-107); POTASSIUM 3.6 MMOL/L (3.5-5.1); SODIUM 140 MMOL/L (136-145)
[2019-01-09] MEDS: Piperacillin/Tazobactam 3.375 GM in NS 110 ML IVPB SCH ×3 (06:20→23:28)
--- NOTE | 2019-01-09 07:17 | NUR ---
HAND-OFF: Report given to BRANNON Gibson. Patient asleep in bed, VS stable. MD alerted of critical value, see interventions.
--- NOTE | 2019-01-09 07:17 | NUR ---
NURSE NOTES:Bedside rounds with odilia alcocer.patient awake,a/ox1-2,room air,nad.night charge savannah(ag alcocer),primary rn aware. re:picc line length exposed,approximately 4cm.fr. the insertion site.per report its been 2 days and its patent.incoming day charge(roberto alcocer)aware.will continue to monitor.
[2019-01-09] MEDS: Lactulose 20gm/30ml UDC ORAL SCH ×3 (07:58→18:04)
[2019-01-09 08:00] VITALS: BP 105/64
[2019-01-09 09:29] LABS: ALANINE AMINOTRANSFERASE 23 U/L (12-78); ALBUMIN 1.4 G/DL (3.4-5.0); ALKALINE PHOSPHATASE 426 U/L (46-116); ASPARTATE AMINO TRANSFERASE 119 U/L (15-37); BILIRUBIN,DIRECT 10.6 MG/DL (0.0-0.3); BILIRUBIN,TOTAL 11.7 MG/DL (0.2-1.0)
--- NOTE | 2019-01-09 10:27 | GI Progress Note ---
Assessment/Plan Problems: (1) Acute alcoholic gastritis ICD Codes: K29.20 - Alcoholic gastritis without bleeding SNOMED: 1754701 Qualifiers: Qualified Codes: K29.20 - Alcoholic gastritis without bleeding (2) Elevated LFTs ICD Codes: R94.5 - Abnormal results of liver function studies SNOMED: 152444678, 238501177 (3) Alcoholic liver disease ICD Codes: K70.9 - Alcoholic liver disease, unspecified SNOMED: 02198631 (4) Esophagitis ICD Codes: K20.9 - Esophagitis, unspecified SNOMED: 76714463 (5) Acute encephalopathy ICD Codes: G93.40 - Encephalopathy, unspecified SNOMED: 25394673, 657554524 (6) Psychosis ICD Codes: F29 - Unspecified psychosis not due to a substance or known physiological condition SNOMED: 62614350 (7) Acute alcoholic intoxication ICD Codes: F10.929 - Alcohol use, unspecified with intoxication, unspecified SNOMED: 89263104 Status: unchanged Status Narrative Discussed with Dr. Rich. Assessment/Plan Imaging noted, cirrhosis rising bili US with doppler r/o Budd-Chiari Syndrome>> negative OB stool negative Stable H&H discriminant function calculated, patient will benefit from glucocorticoid therapy Prednisone 40mg PO daily x 5 days, hold due to rising WBC lactulose + xifaxan>>> improving ammonia level monitor H&H, prn transfusions bowel regimen ppi fu labs fu neurology recs Will benefit from endoscopy to evaluate for esophageal varices as outpatient The patient was seen and examined at bedside and all new and available data was reviewed in the patients chart. I agree with the above findings, impression and plan. (Patient seen earlier today. Signature stamp does not reflect patient encounter time.). - Jarod Rich MD Subjective Gastrointestinal/Abdominal: Reports: no symptoms Objective Last 24 Hour Vital Signs Date Time Temp Pulse Resp B/P (MAP) Pulse Ox O2 Delivery O2 Flow Rate FiO2 01/09/19 08:12 Room Air 01/09/19 08:00 97.6 105 18 105/64 (78) 97 01/09/19 04:00 98.4 97 18 101/61 (74) 95 01/08/19 21:00 Room Air 01/08/19 20:00 98.6 96 18 91/57 (68) 93 01/08/19 16:00 98.2 106 18 99/65 (76) 95 01/08/19 12:00 98.0 121 18 105/70 (82) 93 Intake and Output 01/08/19 01/09/19 19:00 07:00 Intake Total 600 ml 450 ml Balance 600 ml 450 ml Intake Oral 600 ml 450 ml # Voids 3 # Bowel Movements 1 Laboratory Tests Test 01/09/19 05:27 White Blood Count 23.3 K/UL (4.8-10.8) *H Red Blood Count 2.81 M/UL (4.70-6.10) L Hemoglobin 9.0 G/DL (14.2-18.0) L Hematocrit 28.1 % (42.0-52.0) L Mean Corpuscular Volume 100 FL (80-99) H Mean Corpuscular Hemoglobin 32.0 PG (27.0-31.0) H Mean Corpuscular Hemoglobin Concent 31.9 G/DL (32.0-36.0) L Red Cell Distribution Width 15.2 % (11.6-14.8) H Platelet Count 283 K/UL (150-450) Mean Platelet Volume 6.4 FL (6.5-10.1) L Neutrophils (%) (Auto) % (45.0-75.0) Lymphocytes (%) (Auto) % (20.0-45.0) Monocytes (%) (Auto) % (1.0-10.0) Eosinophils (%) (Auto) % (0.0-3.0) Basophils (%) (Auto) % (0.0-2.0) Differential Total Cells Counted 100 Neutrophils % (Manual) 92 % (45-75) H Lymphocytes % (Manual) 4 % (20-45) L Monocytes % (Manual) 4 % (1-10) Eosinophils % (Manual) 0 % (0-3) Basophils % (Manual) 0 % (0-2) Band Neutrophils 0 % (0-8) Platelet Estimate Adequate Platelet Morphology Normal Hypochromasia 2+ Anisocytosis 1+ Sodium Level 140 MMOL/L (136-145) Potassium Level 3.6 MMOL/L (3.5-5.1) Chloride Level 107 MMOL/L (98-107) Carbon Dioxide Level 25 MMOL/L (21-32) Anion Gap 8 mmol/L (5-15) Blood Urea Nitrogen 22 mg/dL (7-18) H Creatinine 1.0 MG/DL (0.55-1.30) Estimat Glomerular Filtration Rate > 60 mL/min (>60) Glucose Level 168 MG/DL (74-106) H Calcium Level 7.2 MG/DL (8.5-10.1) L Total Bilirubin 11.7 MG/DL (0.2-1.0) H Direct Bilirubin 10.6 MG/DL (0.0-0.3) H Aspartate Amino Transf (AST/SGOT) 119 U/L (15-37) H Alanine Aminotransferase (ALT/SGPT) 23 U/L (12-78) Alkaline Phosphatase 426 U/L (46-116) H Total Protein 5.0 G/DL (6.4-8.2) L Albumin 1.4 G/DL (3.4-5.0) L Height (Feet): 5 Height (Inches): 5.00 Weight (Pounds): 188 General Appearance: WD/WN, no apparent distress, alert Cardiovascular: normal rate Respiratory/Chest: normal breath sounds, no respiratory distress Abdominal Exam: normal bowel sounds, non tender, soft Extremities: normal range of motion, non-tender Luisana Craft NP Jan 09, 2019 10:27
--- NOTE | 2019-01-09 10:54 | NUR ---
CASE MANAGEMENT:REVIEW 01/09/19 SI: ACUTE ENCEPHALOPATHY ALCOHOLIC LIVER DISEASE 97.6 105 18 105/64 97% ON RA WBC+23.3 H/H-9.0/28.1 IS: IV ZOSYN Q8HRS MIDODRINE PO TID LACTULOSE PO TID PROTONIX PO BID : TELEMETRY STATUS PLAN: UNABLE TO FIND AN ACCEPTING SNF OF YET....NEED HELP FROM HEALTH PLAN PATIENT HAS ALREADY BEEN REFERRED TO THE FOLLOWING BY ANDREA SENIOR COPYWRITER 1) [facility] SPOKE WITH [facility] UNABLE TO ACCEPT 2) [facility] SPOKE WITH [facility] TO ACCEPT EVEN WHEN THEY HAD BEDS AVAILABLE 3)[facility] WITH [facility] B[facility]S AVAILABLE BUT TOOK A MEDICARE PATIENT OF OURS 4)[facility] TO ACCEPT 5)[facility] TO ACCE[facility] 6)[facility] WITH [facility]BLE TO ACCEPT 7)[facility] 8) [facility] WITH [facility] D/T ALCOHOL HISTORY 9)[facility] NO RESPONSE 10)[facility] 11)[facility] 12)[facility] 13)[facility] CTRSPOKE WITH NORANO, NOT INTERESTED 14)[facility]UM[facility] CARESPOKE WITH NONANO 15)YARITZA VÁSQUEZ FOR RESPONSE FROM [facility] WILL FAX TO 10 MORE FACILITIES TODAY HMO SENIOR COPYWRITER EDUARDO IS AWARE OF DIFFICULT PLACEMENT
--- NOTE | 2019-01-09 11:21 | Nephrology Progress Note ---
Assessment/Plan Problem List: (1) Alcoholic liver disease (2) Anemia (3) Electrolyte disorder (4) Jaundice Assessment Acute Alcoholic Gastritis / Encephalopathy - Intoxication Alcoholic Hepatitis Anemia Hypokalemia Psych disease Plan labs noted PO steroids on hold by GI has PICC now K and Mag and Phos supplement as needed Monitor lytes / Lfts per orders Subjective ROS Limited/Unobtainable: No Constitutional: Reports: malaise, weakness Objective Objective Last 24 Hour Vital Signs Date Time Temp Pulse Resp B/P (MAP) Pulse Ox O2 Delivery O2 Flow Rate FiO2 01/09/19 08:12 Room Air 01/09/19 08:00 97.6 105 18 105/64 (78) 97 01/09/19 04:00 98.4 97 18 101/61 (74) 95 01/08/19 21:00 Room Air 01/08/19 20:00 98.6 96 18 91/57 (68) 93 01/08/19 16:00 98.2 106 18 99/65 (76) 95 01/08/19 12:00 98.0 121 18 105/70 (82) 93 Intake and Output 01/08/19 01/09/19 19:00 07:00 Intake Total 600 ml 450 ml Balance 600 ml 450 ml Intake Oral 600 ml 450 ml # Voids 3 # Bowel Movements 1 Laboratory Tests 01/09/19 05:27: White Blood Count 23.3*H, Red Blood Count 2.81L, Hemoglobin 9.0L, Hematocrit 28.1L, Mean Corpuscular Volume 100H, Mean Corpuscular Hemoglobin 32.0H, Mean Corpuscular Hemoglobin Concent 31.9L, Red Cell Distribution Width 15.2H, Platelet Count 283, Mean Platelet Volume 6.4L, Neutrophils (%) (Auto) , Lymphocytes (%) (Auto) , Monocytes (%) (Auto) , Eosinophils (%) (Auto) , Basophils (%) (Auto) , Differential Total Cells Counted 100, Neutrophils % ( Manual) 92H, Lymphocytes % (Manual) 4L, Monocytes % (Manual) 4, Eosinophils % ( Manual) 0, Basophils % (Manual) 0, Band Neutrophils 0, Platelet Estimate Adequate, Platelet Morphology Normal, Hypochromasia 2+, Anisocytosis 1+, Sodium Level 140, Potassium Level 3.6, Chloride Level 107, Carbon Dioxide Level 25, Anion Gap 8, Blood Urea Nitrogen 22H, Creatinine 1.0, Estimat Glomerular Filtration Rate > 60, Glucose Level 168H, Calcium Level 7.2L, Total Bilirubin 11.7H, Direct Bilirubin 10.6H, Aspartate Amino Transf (AST/SGOT) 119H, Alanine Aminotransferase (ALT/SGPT) 23, Alkaline Phosphatase 426H, Total Protein 5.0L, Albumin 1.4L Height (Feet): 5 Height (Inches): 5.00 Weight (Pounds): 188 General Appearance: no apparent distress, lethargic Respiratory/Chest: decreased breath sounds Abdomen: distended Objective no change Leonard Bautista MD Jan 09, 2019 11:21
[2019-01-09 11:33] LABS: PHOSPHORUS 1.8 MG/DL (2.5-4.9)
[2019-01-09 12:00] VITALS: BP 108/70
--- NOTE | 2019-01-09 12:07 | NUR ---
Oyster Sorter Note ELENA spoke with Baronjuan antoniosilvino sagastume [facility] and confirmed they have an available hospice bed for patient. Message left for Malinda [phone]. Awaiting a return call. Addendum: 01/09/19 at 1633 by ASIM DE LA PAZ Sister's phone not accepting voice mail messaged, accepted 2 more times. ELENA will continue to follow up.
--- NOTE | 2019-01-09 12:20 | General Progress Note ---
Assessment/Plan Problem List: (1) Abdominal pain ICD Codes: R10.9 - Unspecified abdominal pain SNOMED: 54715921 (2) Anemia ICD Codes: D64.9 - Anemia, unspecified SNOMED: 613819301 (3) Alcoholic liver disease ICD Codes: K70.9 - Alcoholic liver disease, unspecified SNOMED: 95291459 (4) Acute alcoholic gastritis ICD Codes: K29.20 - Alcoholic gastritis without bleeding SNOMED: 4818665 Qualifiers: Qualified Codes: K29.20 - Alcoholic gastritis without bleeding Status: unchanged Assessment/Plan: detox gi f/u cbc bmp dc plan snf if clear Subjective Constitutional: Reports: weakness Allergies: Coded Allergies: No Known Allergies (Verified , 10/22/06) All Systems: reviewed and negative except above Subjective sleepy anxious Objective Last 24 Hour Vital Signs Date Time Temp Pulse Resp B/P (MAP) Pulse Ox O2 Delivery O2 Flow Rate FiO2 01/09/19 08:12 Room Air 01/09/19 08:00 97.6 105 18 105/64 (78) 97 01/09/19 04:00 98.4 97 18 101/61 (74) 95 01/08/19 21:00 Room Air 01/08/19 20:00 98.6 96 18 91/57 (68) 93 01/08/19 16:00 98.2 106 18 99/65 (76) 95 Intake and Output 01/08/19 01/09/19 19:00 07:00 Intake Total 600 ml 450 ml Balance 600 ml 450 ml Intake Oral 600 ml 450 ml # Voids 3 # Bowel Movements 1 Laboratory Tests 01/09/19 05:27: White Blood Count 23.3*H, Red Blood Count 2.81L, Hemoglobin 9.0L, Hematocrit 28.1L, Mean Corpuscular Volume 100H, Mean Corpuscular Hemoglobin 32.0H, Mean Corpuscular Hemoglobin Concent 31.9L, Red Cell Distribution Width 15.2H, Platelet Count 283, Mean Platelet Volume 6.4L, Neutrophils (%) (Auto) , Lymphocytes (%) (Auto) , Monocytes (%) (Auto) , Eosinophils (%) (Auto) , Basophils (%) (Auto) , Differential Total Cells Counted 100, Neutrophils % ( Manual) 92H, Lymphocytes % (Manual) 4L, Monocytes % (Manual) 4, Eosinophils % ( Manual) 0, Basophils % (Manual) 0, Band Neutrophils 0, Platelet Estimate Adequate, Platelet Morphology Normal, Hypochromasia 2+, Anisocytosis 1+, Sodium Level 140, Potassium Level 3.6, Chloride Level 107, Carbon Dioxide Level 25, Anion Gap 8, Blood Urea Nitrogen 22H, Creatinine 1.0, Estimat Glomerular Filtration Rate > 60, Glucose Level 168H, Calcium Level 7.2L, Phosphorus Level 1.8L, Magnesium Level 2.3, Total Bilirubin 11.7H, Direct Bilirubin 10.6H, Aspartate Amino Transf (AST/SGOT) 119H, Alanine Aminotransferase (ALT/SGPT) 23, Alkaline Phosphatase 426H, Total Protein 5.0L, Albumin 1.4L Height (Feet): 5 Height (Inches): 5.00 Weight (Pounds): 188 General Appearance: lethargic EENT: normal ENT inspection Neck: normal alignment Cardiovascular: normal peripheral pulses, normal rate, regular rhythm Respiratory/Chest: chest wall non-tender, lungs clear, normal breath sounds Abdomen: normal bowel sounds, soft, distended Extremities: normal inspection Edema: no edema noted Arm (L), no edema noted Arm (R), no edema noted Leg (L), no edema noted Leg (R), no edema noted Pedal (L), no edema noted Pedal (R), no edema noted Generalized Neurologic: motor weakness Skin: normal pigmentation, warm/dry Corwin Martinez DO Jan 09, 2019 12:20
--- NOTE | 2019-01-09 13:21 | NUR ---
*-* INSURANCE *-* UPDATED CLINICALS HAVE BEEN FAXED TO [facility] NCM: DOMINGUEZ Iglesias P- [phone] F- [phone].....REVIEW/CLINICAL
--- NOTE | 2019-01-09 13:40 | Infectious Diseases Prog Note ---
Assessment/Plan Assessment/Plan 58 yo male with PMHx of EtOH abuse, Depression and anxiety, SI who presented to the ED on 12/29/18 with N/V and abdominal pain. Leukocytosis and single high temp- S/P Prednisone 01/09/19 Likely due to gastritis from EtOH need -MRCP : Very limited exam, as described. Normal caliber bile ducts without definite filling defects to suggest choledocholithiasis Cholelithiasis. Gallbladder wall thickening, also described on prior sonogram. Most likely on the basis of hepatocellular derangement but the possibility of acute cholecystitis should also be considered. Ascites. Abnormal hepatic morphology, also previously described, suggestive of cirrhotic change -Abd US: Hepatomegaly. Coarsened hepatic echogenicity and surface nodularitysuggests cirrhosis. Ascites, not demonstrated previously. Cholelithiasis and gallbladder sludge, not evident previously. Gallbladder wall thickening and pericholecystic fluid, probably due to the hepatocellular derangements, but the possibility of acute cholecystitis should also be considered. Correlate with clinical findings, consider nuclear medicine hepatobiliary scan if clinically indicated. Negative for dilated bile ducts. Incidental finding small left renal cyst -CT abd/p: Chronic liver disease/cirrhosis with fatty infiltration, enlargement of the liver and stigmata of portal hypertension including ascites and splenomegaly, recanalized umbilical vein. Basilar atelectasis. Probable gallstones. Tiny bilateral renal hypodensities too small to characterize.Fecal impaction Cirrhosis EtOH abuse Hep A/B/C - Pend Depression and anxiety SI HIV (-) PLAN: - Continue Zosyn #3/10 for possible acute cholecystitis - 01/08/19 S/P Levofloxacin #6 and Flagyl #6 - 01/03/19 S/P Zosyn #5 - Monitor CBC and Temps - Monitor clinically - Consider paracentesis We will continue to follow the patient during this hospitalization. Subjective Allergies: Coded Allergies: No Known Allergies (Verified , 10/22/06) Subjective t Afebrile Continued Leukocytosis Objective Vital Signs Last 24 Hour Vital Signs Date Time Temp Pulse Resp B/P (MAP) Pulse Ox O2 Delivery O2 Flow Rate FiO2 01/09/19 08:12 Room Air 01/09/19 08:00 97.6 105 18 105/64 (78) 97 01/09/19 04:00 98.4 97 18 101/61 (74) 95 01/08/19 21:00 Room Air 01/08/19 20:00 98.6 96 18 91/57 (68) 93 01/08/19 16:00 98.2 106 18 99/65 (76) 95 Height (Feet): 5 Height (Inches): 5.00 Weight (Pounds): 188 Objective Gen: NAD HEENT: NCAT, MMM, EOMI LUNGS: CTAB, No W CARDS: RRR, S1, S2, No M/R/G, ABD: Soft, Diffusely TTP, Distended, No R/G Laboratory Tests Test 01/09/19 05:27 White Blood Count 23.3 K/UL (4.8-10.8) *H Red Blood Count 2.81 M/UL (4.70-6.10) L Hemoglobin 9.0 G/DL (14.2-18.0) L Hematocrit 28.1 % (42.0-52.0) L Mean Corpuscular Volume 100 FL (80-99) H Mean Corpuscular Hemoglobin 32.0 PG (27.0-31.0) H Mean Corpuscular Hemoglobin Concent 31.9 G/DL (32.0-36.0) L Red Cell Distribution Width 15.2 % (11.6-14.8) H Platelet Count 283 K/UL (150-450) Mean Platelet Volume 6.4 FL (6.5-10.1) L Neutrophils (%) (Auto) % (45.0-75.0) Lymphocytes (%) (Auto) % (20.0-45.0) Monocytes (%) (Auto) % (1.0-10.0) Eosinophils (%) (Auto) % (0.0-3.0) Basophils (%) (Auto) % (0.0-2.0) Differential Total Cells Counted 100 Neutrophils % (Manual) 92 % (45-75) H Lymphocytes % (Manual) 4 % (20-45) L Monocytes % (Manual) 4 % (1-10) Eosinophils % (Manual) 0 % (0-3) Basophils % (Manual) 0 % (0-2) Band Neutrophils 0 % (0-8) Platelet Estimate Adequate Platelet Morphology Normal Hypochromasia 2+ Anisocytosis 1+ Sodium Level 140 MMOL/L (136-145) Potassium Level 3.6 MMOL/L (3.5-5.1) Chloride Level 107 MMOL/L (98-107) Carbon Dioxide Level 25 MMOL/L (21-32) Anion Gap 8 mmol/L (5-15) Blood Urea Nitrogen 22 mg/dL (7-18) H Creatinine 1.0 MG/DL (0.55-1.30) Estimat Glomerular Filtration Rate > 60 mL/min (>60) Glucose Level 168 MG/DL (74-106) H Calcium Level 7.2 MG/DL (8.5-10.1) L Phosphorus Level 1.8 MG/DL (2.5-4.9) L Magnesium Level 2.3 MG/DL (1.8-2.4) Total Bilirubin 11.7 MG/DL (0.2-1.0) H Direct Bilirubin 10.6 MG/DL (0.0-0.3) H Aspartate Amino Transf (AST/SGOT) 119 U/L (15-37) H Alanine Aminotransferase (ALT/SGPT) 23 U/L (12-78) Alkaline Phosphatase 426 U/L (46-116) H Total Protein 5.0 G/DL (6.4-8.2) L Albumin 1.4 G/DL (3.4-5.0) L Current Medications Medications (Trade) Dose Ordered Sig/Clyde Route PRN Reason Start Time Stop Time Status Last Admin Dose Admin Acetaminophen (Tylenol) 650 mg Q4H PRN ORAL Mild Pain/Temp > 100.5 01/05/19 18:23 02/04/19 18:22 01/08/19 16:48 Chlorhexidine Gluconate (Sharmila-Hex 2%) 1 applic DAILY@1999 TOPIC 01/05/19 20:00 02/01/19 19:59 01/08/19 20:00 Dextrose (Dextrose 50%) 25 ml Q30M PRN IV Hypoglycemia 01/05/19 18:30 01/28/19 16:29 Dextrose (Dextrose 50%) 50 ml Q30M PRN IV Hypoglycemia 01/05/19 18:30 01/28/19 16:29 Lactulose (Cephulac) 30 gm THREE TIMES A DAY ORAL 01/06/19 09:00 02/01/19 08:59 01/09/19 07:58 Lorazepam (Ativan 2mg/ml 1ml) 0.5 mg Q4H PRN IV For Anxiety 01/05/19 18:24 01/12/19 18:23 01/09/19 00:02 Lorazepam (Ativan 2mg/ml 1ml) 2 mg Q1H PRN IV SEIZURES 01/05/19 18:24 01/12/19 18:23 Midodrine (Pro-Amatine) 10 mg THREE TIMES A DAY ORAL 01/07/19 13:00 02/01/19 12:59 01/09/19 08:14 Ondansetron HCl (Zofran) 4 mg Q6H PRN IVP Nausea & Vomiting 01/05/19 18:25 02/04/19 18:24 Pantoprazole (Protonix) 40 mg BID ORAL 01/06/19 09:00 01/28/19 17:59 01/09/19 07:59 Piperacillin Sod/ Tazobactam Sod 3.375 gm/Sodium Chloride 110 ml @ 27.5 mls/hr EVERY 8 HOURS IVPB 01/07/19 14:00 01/12/19 13:59 01/09/19 06:20 Devon Kingsley MD Jan 09, 2019 13:40
--- NOTE | 2019-01-09 14:27 | Pulmonology Progress Note ---
Assessment/Plan Problems: (1) End stage liver disease (2) Acute upper GI bleed (3) Acute alcoholic intoxication (4) Coagulopathy (5) Psychosis (6) Acute encephalopathy (7) Alcoholic liver disease Assessment/Plan awaiting discharge to [facility] under hospice care. symptomatic treatment lactulose f/u Ammonia level. consider comfort care and DNR Subjective ROS Limited/Unobtainable: No Constitutional: Reports: no symptoms HEENT: Repors: no symptoms Allergies: Coded Allergies: No Known Allergies (Verified , 10/22/06) Objective Last 24 Hour Vital Signs Date Time Temp Pulse Resp B/P (MAP) Pulse Ox O2 Delivery O2 Flow Rate FiO2 01/09/19 12:00 98.4 102 17 108/70 (83) 97 01/09/19 08:12 Room Air 01/09/19 08:00 97.6 105 18 105/64 (78) 97 01/09/19 04:00 98.4 97 18 101/61 (74) 95 01/08/19 21:00 Room Air 01/08/19 20:00 98.6 96 18 91/57 (68) 93 01/08/19 16:00 98.2 106 18 99/65 (76) 95 Intake and Output 01/08/19 01/09/19 19:00 07:00 Intake Total 600 ml 450 ml Balance 600 ml 450 ml Intake Oral 600 ml 450 ml # Voids 3 # Bowel Movements 1 General Appearance: WD/WN HEENT: normocephalic, atraumatic Respiratory/Chest: chest wall non-tender, lungs clear Cardiovascular: normal peripheral pulses, regular rhythm Abdomen: non distended Genitourinary: normal external genitalia Extremities: no clubbing Skin: no lesions Laboratory Tests 01/09/19 05:27: White Blood Count 23.3*H, Red Blood Count 2.81L, Hemoglobin 9.0L, Hematocrit 28.1L, Mean Corpuscular Volume 100H, Mean Corpuscular Hemoglobin 32.0H, Mean Corpuscular Hemoglobin Concent 31.9L, Red Cell Distribution Width 15.2H, Platelet Count 283, Mean Platelet Volume 6.4L, Neutrophils (%) (Auto) , Lymphocytes (%) (Auto) , Monocytes (%) (Auto) , Eosinophils (%) (Auto) , Basophils (%) (Auto) , Differential Total Cells Counted 100, Neutrophils % ( Manual) 92H, Lymphocytes % (Manual) 4L, Monocytes % (Manual) 4, Eosinophils % ( Manual) 0, Basophils % (Manual) 0, Band Neutrophils 0, Platelet Estimate Adequate, Platelet Morphology Normal, Hypochromasia 2+, Anisocytosis 1+, Sodium Level 140, Potassium Level 3.6, Chloride Level 107, Carbon Dioxide Level 25, Anion Gap 8, Blood Urea Nitrogen 22H, Creatinine 1.0, Estimat Glomerular Filtration Rate > 60, Glucose Level 168H, Calcium Level 7.2L, Phosphorus Level 1.8L, Magnesium Level 2.3, Total Bilirubin 11.7H, Direct Bilirubin 10.6H, Aspartate Amino Transf (AST/SGOT) 119H, Alanine Aminotransferase (ALT/SGPT) 23, Alkaline Phosphatase 426H, Total Protein 5.0L, Albumin 1.4L Current Medications Medications (Trade) Dose Ordered Sig/Clyde Route PRN Reason Start Time Stop Time Status Last Admin Dose Admin Acetaminophen (Tylenol) 650 mg Q4H PRN ORAL Mild Pain/Temp > 100.5 01/05/19 18:23 02/04/19 18:22 01/08/19 16:48 Chlorhexidine Gluconate (Sharmila-Hex 2%) 1 applic DAILY@1999 TOPIC 01/05/19 20:00 02/01/19 19:59 01/08/19 20:00 Dextrose (Dextrose 50%) 25 ml Q30M PRN IV Hypoglycemia 01/05/19 18:30 01/28/19 16:29 Dextrose (Dextrose 50%) 50 ml Q30M PRN IV Hypoglycemia 01/05/19 18:30 01/28/19 16:29 Lactulose (Cephulac) 30 gm THREE TIMES A DAY ORAL 01/06/19 09:00 02/01/19 08:59 01/09/19 07:58 Lorazepam (Ativan 2mg/ml 1ml) 0.5 mg Q4H PRN IV For Anxiety 01/05/19 18:24 01/12/19 18:23 01/09/19 00:02 Lorazepam (Ativan 2mg/ml 1ml) 2 mg Q1H PRN IV SEIZURES 01/05/19 18:24 01/12/19 18:23 Midodrine (Pro-Amatine) 10 mg THREE TIMES A DAY ORAL 01/07/19 13:00 02/01/19 12:59 01/09/19 08:14 Ondansetron HCl (Zofran) 4 mg Q6H PRN IVP Nausea & Vomiting 01/05/19 18:25 02/04/19 18:24 Pantoprazole (Protonix) 40 mg BID ORAL 01/06/19 09:00 01/28/19 17:59 01/09/19 07:59 Piperacillin Sod/ Tazobactam Sod 3.375 gm/Sodium Chloride 110 ml @ 27.5 mls/hr EVERY 8 HOURS IVPB 01/07/19 14:00 01/12/19 13:59 01/09/19 06:20 Marion Schneider MD Jan 09, 2019 14:27
--- NOTE | 2019-01-09 15:11 | NUR ---
NURSE NOTES:got up with physical therapy and took few side steps in the room.partial bath given.
[2019-01-09 16:00] VITALS: BP 107/69
--- NOTE | 2019-01-09 19:19 | NUR ---
HAND-OFF: Report given to .CIARRA MCCRAY.PATIENT STABLE ON REPORT
--- NOTE | 2019-01-09 19:19 | NUR ---
NURSE NOTES:Patient received from MIGUEL Chavarria Patient resting in bed . a/aox3 with confusion . picc line double lumen left upper arm Patent and intact .Patient denies any pain at this time . no s/s of distress noted . call light within reach . bed in low position at all times .,will continue to monitor .bed alarm on .
[2019-01-09 20:00] VITALS: BP 99/72
[2019-01-09] MEDS: Dyna-Hex 2% Top Sol 2oz TOPIC SCH (20:45)
--- NOTE | 2019-01-09 22:24 | Neurology Progress Note ---
Interim History Interim History ROS Limited/Unobtainable: No Complaints: AMS Events: This visit was performed on January 09, [address] Dee. Interim History No changes - waxing and waning orientation and mood. Review of Systems All Systems: reviewed and negative except above Objective Physical Exam Last Vital Signs Date Time Temp Pulse Resp B/P (MAP) Pulse Ox O2 Delivery O2 Flow Rate FiO2 01/09/19 20:00 97.6 102 16 99/72 (81) 93 01/09/19 08:12 Room Air 01/04/19 09:00 2.0 Laboratory Tests Test 01/09/19 05:27 White Blood Count 23.3 K/UL (4.8-10.8) *H Red Blood Count 2.81 M/UL (4.70-6.10) L Hemoglobin 9.0 G/DL (14.2-18.0) L Hematocrit 28.1 % (42.0-52.0) L Mean Corpuscular Volume 100 FL (80-99) H Mean Corpuscular Hemoglobin 32.0 PG (27.0-31.0) H Mean Corpuscular Hemoglobin Concent 31.9 G/DL (32.0-36.0) L Red Cell Distribution Width 15.2 % (11.6-14.8) H Platelet Count 283 K/UL (150-450) Mean Platelet Volume 6.4 FL (6.5-10.1) L Neutrophils (%) (Auto) % (45.0-75.0) Lymphocytes (%) (Auto) % (20.0-45.0) Monocytes (%) (Auto) % (1.0-10.0) Eosinophils (%) (Auto) % (0.0-3.0) Basophils (%) (Auto) % (0.0-2.0) Differential Total Cells Counted 100 Neutrophils % (Manual) 92 % (45-75) H Lymphocytes % (Manual) 4 % (20-45) L Monocytes % (Manual) 4 % (1-10) Eosinophils % (Manual) 0 % (0-3) Basophils % (Manual) 0 % (0-2) Band Neutrophils 0 % (0-8) Platelet Estimate Adequate Platelet Morphology Normal Hypochromasia 2+ Anisocytosis 1+ Sodium Level 140 MMOL/L (136-145) Potassium Level 3.6 MMOL/L (3.5-5.1) Chloride Level 107 MMOL/L (98-107) Carbon Dioxide Level 25 MMOL/L (21-32) Anion Gap 8 mmol/L (5-15) Blood Urea Nitrogen 22 mg/dL (7-18) H Creatinine 1.0 MG/DL (0.55-1.30) Estimat Glomerular Filtration Rate > 60 mL/min (>60) Glucose Level 168 MG/DL (74-106) H Calcium Level 7.2 MG/DL (8.5-10.1) L Phosphorus Level 1.8 MG/DL (2.5-4.9) L Magnesium Level 2.3 MG/DL (1.8-2.4) Total Bilirubin 11.7 MG/DL (0.2-1.0) H Direct Bilirubin 10.6 MG/DL (0.0-0.3) H Aspartate Amino Transf (AST/SGOT) 119 U/L (15-37) H Alanine Aminotransferase (ALT/SGPT) 23 U/L (12-78) Alkaline Phosphatase 426 U/L (46-116) H Total Protein 5.0 G/DL (6.4-8.2) L Albumin 1.4 G/DL (3.4-5.0) L General: well developed, other Head: other Neck: no rigidity EENT: other - Visible right nasal polyp, skin tag, lesion - Neurologic Exam Mental Status: awake, alert, other Speech: other Language: other Cranial Nerve II: other Cranial Nerves III, IV, : other Cranial Nerve V: other Cranial Nerve VII: other Cranial Nerve VIII: other Cranial Nerve IX: other Cranial Nerve X: no voice hoarseness, other Cranial Nerve XI: SCM symmetric, other Cranial Nerve XII: tongue midline, other Motor System: no involuntary movement, other Sensory: normal pinprick, normal light touch, normal position sense, normal graphesthesia, other Coordination: other - More appropriately verbal in conversation at times with depressed affect and difficulty following instructions during examination. Deep Tendon Reflexes: 1+ bicep (L), 1+ bicep (R), 1+ tricep (L), 1+ tricep (R) , 1+ brachioradialis (L), 1+ brachioradialis (R), 1+ knee (L), 1+ knee (R), 1+ ankle (L), 1+ ankle (R) Stance: other - Patient remains weak throughout all extremities with non focal exam. He is more appropriate in conversation today but remains non focal and encephalopathic Gait: other Objective Patient is alert and oriented to circumstances with intermittent episodes of agitation/ confusion. He remains non focal and weak throughout Impression/Recommendations Problems: (1) Acute upper GI bleed (2) Fecal impaction in rectum (3) Esophagitis (4) Alcoholic liver disease (5) Elevated LFTs (6) Acute alcoholic gastritis (7) Psychosis (8) Acute alcoholic intoxication (9) Acute encephalopathy (10) Hypocalcemia Status: stable, unchanged Recommendations Continue Lactulose Continue Q4 Neuro obs CIWA protocol PT Frequent reorientation Maintenance of good sleep hygiene with nonessential care withheld overnights HgB>8 Psych recommendations regarding best non-sedating behavioral medications with least hepatic excretion at this time. Oral feeding PRN all day given nutritional status and care goals Awaiting hospice D/C Stable for D/C from a neurological perspective but we will continue to monitor. Anika Pettit N.P. Jan 09, 2019 22:24
[2019-01-10] VITALS: BP 105/68
[2019-01-10 04:00] VITALS: BP 100/64
[2019-01-10 06:32] LABS: HEMATOCRIT 28.7 % (42.0-52.0); HEMOGLOBIN 9.1 G/DL (14.2-18.0); MEAN CORPUSCULAR VOLUME 100 FL (80-99); PLATELET COUNT 290 K/UL (150-450); RED BLOOD COUNT 2.86 M/UL (4.70-6.10); RED CELL DISTRIBUTION WIDTH 15.5 % (11.6-14.8)
[2019-01-10] MEDS: Piperacillin/Tazobactam 3.375 GM in NS 110 ML IVPB SCH ×3 (06:32→22:08)
[2019-01-10 06:50] LABS: ALANINE AMINOTRANSFERASE 21 U/L (12-78); ALBUMIN 1.4 G/DL (3.4-5.0); ALBUMIN/GLOBULIN RATIO 0.4 (1.0-2.7); ALKALINE PHOSPHATASE 458 U/L (46-116); ANION GAP 11 mmol/L (5-15); ASPARTATE AMINO TRANSFERASE 106 U/L (15-37); BILIRUBIN,TOTAL 12.5 MG/DL (0.2-1.0); BLOOD UREA NITROGEN 22 mg/dL (7-18); CALCIUM 7.4 MG/DL (8.5-10.1); CARBON DIOXIDE 25 MMOL/L (21-32); CHLORIDE 106 MMOL/L (98-107); POTASSIUM 3.3 MMOL/L (3.5-5.1); SODIUM 141 MMOL/L (136-145)
[2019-01-10 06:53] LABS: BILIRUBIN,DIRECT 10.6 MG/DL (0.0-0.3)
--- NOTE | 2019-01-10 07:02 | NUR ---
HAND-OFF: Report given to Paige Chavarria
[2019-01-10 07:10] LABS: WHITE BLOOD COUNT 22.8 K/UL (4.8-10.8)
[2019-01-10 08:00] VITALS: BP 93/63
--- NOTE | 2019-01-10 08:15 | NUR ---
NURSE NOTES:dr. maya notified re:wbc:22.8/k:3.3.orders carried out.
[2019-01-10] MEDS: Lactulose 20gm/30ml UDC ORAL SCH ×4 (09:20→18:15)
--- NOTE | 2019-01-10 09:56 | NUR ---
Social Service Note ELENA spoke with patient's sister Malinda [phone]. SW discussed the barriers for placement at a SNF and discussed [facility] as an option. Sister states [facility] provided her a list of options which she will explore today. SW in contact with assisted living, possible bed availability tomorrow. Will continue to monitor and follow up.
--- NOTE | 2019-01-10 10:27 | GI Progress Note ---
Assessment/Plan Problems: (1) Acute alcoholic gastritis ICD Codes: K29.20 - Alcoholic gastritis without bleeding SNOMED: 3255570 Qualifiers: Qualified Codes: K29.20 - Alcoholic gastritis without bleeding (2) Elevated LFTs ICD Codes: R94.5 - Abnormal results of liver function studies SNOMED: 060268811, 288483887 (3) Alcoholic liver disease ICD Codes: K70.9 - Alcoholic liver disease, unspecified SNOMED: 92442421 (4) Esophagitis ICD Codes: K20.9 - Esophagitis, unspecified SNOMED: 93141963 (5) Acute encephalopathy ICD Codes: G93.40 - Encephalopathy, unspecified SNOMED: 59243173, 372396907 (6) Psychosis ICD Codes: F29 - Unspecified psychosis not due to a substance or known physiological condition SNOMED: 26512729 (7) Acute alcoholic intoxication ICD Codes: F10.929 - Alcohol use, unspecified with intoxication, unspecified SNOMED: 36028720 Status: unchanged Status Narrative Discussed with Dr. Rich. Assessment/Plan Imaging noted, cirrhosis US with doppler r/o Budd-Chiari Syndrome>> negative OB stool negative Stable H&H discriminant function calculated, patient will benefit from glucocorticoid therapy >> held due to elevated WBC lactulose + xifaxan monitor H&H, prn transfusions bowel regimen ppi fu labs fu neurology recs Will benefit from endoscopy to evaluate for esophageal varices as outpatient dc planning The patient was seen and examined at bedside and all new and available data was reviewed in the patients chart. I agree with the above findings, impression and plan. (Patient seen earlier today. Signature stamp does not reflect patient encounter time.). - Jarod Rich MD Subjective Gastrointestinal/Abdominal: Reports: no symptoms Objective Last 24 Hour Vital Signs Date Time Temp Pulse Resp B/P (MAP) Pulse Ox O2 Delivery O2 Flow Rate FiO2 01/10/19 09:54 Nasal Cannula 2.0 01/10/19 08:00 98.4 93 18 93/63 (73) 92 01/10/19 04:00 97.2 95 20 100/64 (76) 95 01/10/19 00:00 97.4 89 18 105/68 (80) 95 01/09/19 21:00 Room Air 01/09/19 20:00 97.6 102 16 99/72 (81) 93 01/09/19 16:00 98.3 103 20 107/69 (82) 95 01/09/19 12:00 98.4 102 17 108/70 (83) 97 Intake and Output 01/09/19 01/10/19 18:59 06:59 Intake Total 600 ml 890.0 ml Output Total 600 ml 450 ml Balance 0 ml 440.0 ml Intake Oral 600 ml 780 ml IV Total 110.0 ml Output Urine Total 600 ml 450 ml # Voids 3 3 # Bowel Movements 1 2 Laboratory Tests Test 01/10/19 05:15 White Blood Count 22.8 K/UL (4.8-10.8) *H Red Blood Count 2.86 M/UL (4.70-6.10) L Hemoglobin 9.1 G/DL (14.2-18.0) L Hematocrit 28.7 % (42.0-52.0) L Mean Corpuscular Volume 100 FL (80-99) H Mean Corpuscular Hemoglobin 31.8 PG (27.0-31.0) H Mean Corpuscular Hemoglobin Concent 31.7 G/DL (32.0-36.0) L Red Cell Distribution Width 15.5 % (11.6-14.8) H Platelet Count 290 K/UL (150-450) Mean Platelet Volume 6.6 FL (6.5-10.1) Neutrophils (%) (Auto) % (45.0-75.0) Lymphocytes (%) (Auto) % (20.0-45.0) Monocytes (%) (Auto) % (1.0-10.0) Eosinophils (%) (Auto) % (0.0-3.0) Basophils (%) (Auto) % (0.0-2.0) Differential Total Cells Counted 100 Neutrophils % (Manual) 88 % (45-75) H Lymphocytes % (Manual) 7 % (20-45) L Monocytes % (Manual) 4 % (1-10) Eosinophils % (Manual) 1 % (0-3) Basophils % (Manual) 0 % (0-2) Band Neutrophils 0 % (0-8) Platelet Estimate Adequate Platelet Morphology Normal Hypochromasia 2+ Anisocytosis 1+ Sodium Level 141 MMOL/L (136-145) Potassium Level 3.3 MMOL/L (3.5-5.1) L Chloride Level 106 MMOL/L (98-107) Carbon Dioxide Level 25 MMOL/L (21-32) Anion Gap 11 mmol/L (5-15) Blood Urea Nitrogen 22 mg/dL (7-18) H Creatinine 1.0 MG/DL (0.55-1.30) Estimat Glomerular Filtration Rate > 60 mL/min (>60) Glucose Level 155 MG/DL (74-106) H Calcium Level 7.4 MG/DL (8.5-10.1) L Total Bilirubin 12.5 MG/DL (0.2-1.0) H Direct Bilirubin 10.6 MG/DL (0.0-0.3) H Aspartate Amino Transf (AST/SGOT) 106 U/L (15-37) H Alanine Aminotransferase (ALT/SGPT) 21 U/L (12-78) Alkaline Phosphatase 458 U/L (46-116) H Total Protein 5.0 G/DL (6.4-8.2) L Albumin 1.4 G/DL (3.4-5.0) L Globulin 3.6 g/dL Albumin/Globulin Ratio 0.4 (1.0-2.7) L Height (Feet): 5 Height (Inches): 5.00 Weight (Pounds): 188 General Appearance: WD/WN, no apparent distress, alert Cardiovascular: normal rate Respiratory/Chest: normal breath sounds, no respiratory distress Abdominal Exam: normal bowel sounds, non tender, soft Extremities: normal range of motion, non-tender Luisana Craft NP Jan 10, 2019 10:27
[2019-01-10] MEDS ORDERED: NS 275ml ONE (10:44)
--- NOTE | 2019-01-10 10:55 | Infectious Diseases Prog Note ---
Assessment/Plan Assessment/Plan 58 yo male with PMHx of EtOH abuse, Depression and anxiety, SI who presented to the ED on 12/29/18 with N/V and abdominal pain. Leukocytosis and single high temp- S/P Prednisone 01/09/19 Likely due to gastritis from EtOH need -MRCP : Very limited exam, as described. Normal caliber bile ducts without definite filling defects to suggest choledocholithiasis Cholelithiasis. Gallbladder wall thickening, also described on prior sonogram. Most likely on the basis of hepatocellular derangement but the possibility of acute cholecystitis should also be considered. Ascites. Abnormal hepatic morphology, also previously described, suggestive of cirrhotic change -Abd US: Hepatomegaly. Coarsened hepatic echogenicity and surface nodularitysuggests cirrhosis. Ascites, not demonstrated previously. Cholelithiasis and gallbladder sludge, not evident previously. Gallbladder wall thickening and pericholecystic fluid, probably due to the hepatocellular derangements, but the possibility of acute cholecystitis should also be considered. Correlate with clinical findings, consider nuclear medicine hepatobiliary scan if clinically indicated. Negative for dilated bile ducts. Incidental finding small left renal cyst -CT abd/p: Chronic liver disease/cirrhosis with fatty infiltration, enlargement of the liver and stigmata of portal hypertension including ascites and splenomegaly, recanalized umbilical vein. Basilar atelectasis. Probable gallstones. Tiny bilateral renal hypodensities too small to characterize.Fecal impaction Cirrhosis EtOH abuse Hep A/B/C - Pend Depression and anxiety SI HIV (-) PLAN: - Continue Zosyn #4/10 for possible acute cholecystitis - 01/08/19 S/P Levofloxacin #6 and Flagyl #6 - 01/03/19 S/P Zosyn #5 - Monitor CBC and Temps - Monitor clinically - Consider paracentesis for symptom relief We will continue to follow the patient during this hospitalization. Subjective Allergies: Coded Allergies: No Known Allergies (Verified , 10/22/06) Subjective ORI Afebrile Continued Leukocytosis Objective Vital Signs Last 24 Hour Vital Signs Date Time Temp Pulse Resp B/P (MAP) Pulse Ox O2 Delivery O2 Flow Rate FiO2 01/10/19 09:54 Nasal Cannula 2.0 01/10/19 08:00 98.4 93 18 93/63 (73) 92 01/10/19 04:00 97.2 95 20 100/64 (76) 95 01/10/19 00:00 97.4 89 18 105/68 (80) 95 01/09/19 21:00 Room Air 01/09/19 20:00 97.6 102 16 99/72 (81) 93 01/09/19 16:00 98.3 103 20 107/69 (82) 95 01/09/19 12:00 98.4 102 17 108/70 (83) 97 Height (Feet): 5 Height (Inches): 5.00 Weight (Pounds): 188 Objective Gen: Uncomfortable HEENT: NCAT, MMM, EOMI LUNGS: CTAB, No W CARDS: RRR, S1, S2, No M/R/G, ABD: Soft, Diffusely TTP, Distended, No R/G Laboratory Tests Test 01/10/19 05:15 White Blood Count 22.8 K/UL (4.8-10.8) *H Red Blood Count 2.86 M/UL (4.70-6.10) L Hemoglobin 9.1 G/DL (14.2-18.0) L Hematocrit 28.7 % (42.0-52.0) L Mean Corpuscular Volume 100 FL (80-99) H Mean Corpuscular Hemoglobin 31.8 PG (27.0-31.0) H Mean Corpuscular Hemoglobin Concent 31.7 G/DL (32.0-36.0) L Red Cell Distribution Width 15.5 % (11.6-14.8) H Platelet Count 290 K/UL (150-450) Mean Platelet Volume 6.6 FL (6.5-10.1) Neutrophils (%) (Auto) % (45.0-75.0) Lymphocytes (%) (Auto) % (20.0-45.0) Monocytes (%) (Auto) % (1.0-10.0) Eosinophils (%) (Auto) % (0.0-3.0) Basophils (%) (Auto) % (0.0-2.0) Differential Total Cells Counted 100 Neutrophils % (Manual) 88 % (45-75) H Lymphocytes % (Manual) 7 % (20-45) L Monocytes % (Manual) 4 % (1-10) Eosinophils % (Manual) 1 % (0-3) Basophils % (Manual) 0 % (0-2) Band Neutrophils 0 % (0-8) Platelet Estimate Adequate Platelet Morphology Normal Hypochromasia 2+ Anisocytosis 1+ Sodium Level 141 MMOL/L (136-145) Potassium Level 3.3 MMOL/L (3.5-5.1) L Chloride Level 106 MMOL/L (98-107) Carbon Dioxide Level 25 MMOL/L (21-32) Anion Gap 11 mmol/L (5-15) Blood Urea Nitrogen 22 mg/dL (7-18) H Creatinine 1.0 MG/DL (0.55-1.30) Estimat Glomerular Filtration Rate > 60 mL/min (>60) Glucose Level 155 MG/DL (74-106) H Calcium Level 7.4 MG/DL (8.5-10.1) L Total Bilirubin 12.5 MG/DL (0.2-1.0) H Direct Bilirubin 10.6 MG/DL (0.0-0.3) H Aspartate Amino Transf (AST/SGOT) 106 U/L (15-37) H Alanine Aminotransferase (ALT/SGPT) 21 U/L (12-78) Alkaline Phosphatase 458 U/L (46-116) H Total Protein 5.0 G/DL (6.4-8.2) L Albumin 1.4 G/DL (3.4-5.0) L Globulin 3.6 g/dL Albumin/Globulin Ratio 0.4 (1.0-2.7) L Current Medications Medications (Trade) Dose Ordered Sig/Clyde Route PRN Reason Start Time Stop Time Status Last Admin Dose Admin Acetaminophen (Tylenol) 650 mg Q4H PRN ORAL Mild Pain/Temp > 100.5 01/05/19 18:23 02/04/19 18:22 01/09/19 18:06 Chlorhexidine Gluconate (Sharmila-Hex 2%) 1 applic DAILY@1999 TOPIC 01/05/19 20:00 02/01/19 19:59 01/09/19 20:45 Dextrose (Dextrose 50%) 25 ml Q30M PRN IV Hypoglycemia 01/05/19 18:30 01/28/19 16:29 Dextrose (Dextrose 50%) 50 ml Q30M PRN IV Hypoglycemia 01/05/19 18:30 01/28/19 16:29 Lactulose (Cephulac) 30 gm THREE TIMES A DAY ORAL 01/06/19 09:00 02/01/19 08:59 01/10/19 09:20 Lorazepam (Ativan 2mg/ml 1ml) 0.5 mg Q4H PRN IV For Anxiety 01/05/19 18:24 01/12/19 18:23 01/09/19 00:02 Lorazepam (Ativan 2mg/ml 1ml) 2 mg Q1H PRN IV SEIZURES 01/05/19 18:24 01/12/19 18:23 Midodrine (Pro-Amatine) 10 mg THREE TIMES A DAY ORAL 01/07/19 13:00 02/01/19 12:59 01/10/19 09:21 Ondansetron HCl (Zofran) 4 mg Q6H PRN IVP Nausea & Vomiting 01/05/19 18:25 02/04/19 18:24 Pantoprazole (Protonix) 40 mg BID ORAL 01/06/19 09:00 01/28/19 17:59 01/10/19 09:20 Piperacillin Sod/ Tazobactam Sod 3.375 gm/Sodium Chloride 110 ml @ 27.5 mls/hr EVERY 8 HOURS IVPB 01/07/19 14:00 01/12/19 13:59 01/10/19 06:32 Rifaximin (Xifaxan) 550 mg EVERY 12 HOURS ORAL 01/09/19 16:00 01/16/19 15:59 01/10/19 09:20 Devon Kingsley MD Jan 10, 2019 10:55
--- NOTE | 2019-01-10 11:13 | NUR ---
*-* INSURANCE *-* UPDATED CLINICALS HAVE BEEN FAXED TO [facility] NCM: DOMINGUEZ Iglesias P- [phone] F- [phone].....REVIEW/CLINICAL
--- NOTE | 2019-01-10 11:21 | NUR ---
RD ASSESSMENT & RECOMMENDATIONS SEE CARE ACTIVITY FOR COMPLETE ASSESSMENT DAILY ESTIMATED NEEDS: Needs based on liver dysfunction/ 67.7kg adj 25-30 kcals/kg 0210-9573 total kcals 1-1.5 g protein/kg 68-102 g total protein Fluid per MD NUTRITION DIAGNOSIS: 1) Altered nutrition related lab values r/t end stage liver disease as evidenced by elev T bili (12.5), elev LFT's, low phos (1.8), low mag (1.6- wnl), elev ammonia (61). CURRENT DIET:Cardiac PO DIET RECOMMENDATIONS: Low Fat/ Low Sodium (soft easy chew) ADDITIONAL RECOMMENDATIONS: 1) Recalibrate bed scale for accurate CBW 2) Add Vit B1 + folate + MVI daily 3) Check lytes daily, replete as needed (low Mg + phos) 4) Add Glucerna in b/w meals w/ <75% intake . . .
--- NOTE | 2019-01-10 11:54 | NUR ---
NURSE NOTES:SEEN BY DR. VALENTE INFORMED RE:WBC/AND ALSO NO MORE LAB DRAW.
--- NOTE | 2019-01-10 12:34 | NUR ---
CASE MANAGEMENT:REVIEW 01/10/19 SI: ACUTE ENCEPHALOPATHY ALCOHOLIC LIVER DISEASE 98.4 93 18 93/63 92% ON RA WBC+22.8 H/H-9.1/28.7 K-3.3 IS: IV ZOSYN Q8HRS RIFAXIMIN PO Q12 MIDODRINE PO TID LACTULOSE PO TID PROTONIX PO BID :MED/SURG STATUS 3 EAST PLAN: SNF'S ARE NOT WILLING TO ACCEPT PATIENT D/T HISTORY OF ALCOHOLISM SOCIAL WORKING IS WORKING ON SECURING A [employer] LIVING SETTING FOR PATIENT DISCHARGE PENDING PLACEMENT
--- NOTE | 2019-01-10 13:41 | General Progress Note ---
Assessment/Plan Problem List: (1) Abdominal pain ICD Codes: R10.9 - Unspecified abdominal pain SNOMED: 87009367 (2) Anemia ICD Codes: D64.9 - Anemia, unspecified SNOMED: 219682887 (3) Alcoholic liver disease ICD Codes: K70.9 - Alcoholic liver disease, unspecified SNOMED: 46893679 (4) Acute alcoholic gastritis ICD Codes: K29.20 - Alcoholic gastritis without bleeding SNOMED: 9337368 Qualifiers: Qualified Codes: K29.20 - Alcoholic gastritis without bleeding Status: unchanged Assessment/Plan: detox gi f/u cbc bmp dc plan snf if clear Subjective Constitutional: Reports: weakness Allergies: Coded Allergies: No Known Allergies (Verified , 10/22/06) All Systems: reviewed and negative except above Subjective sleepy anxious Objective Last 24 Hour Vital Signs Date Time Temp Pulse Resp B/P (MAP) Pulse Ox O2 Delivery O2 Flow Rate FiO2 01/10/19 09:54 Nasal Cannula 2.0 01/10/19 08:00 98.4 93 18 93/63 (73) 92 01/10/19 04:00 97.2 95 20 100/64 (76) 95 01/10/19 00:00 97.4 89 18 105/68 (80) 95 01/09/19 21:00 Room Air 01/09/19 20:00 97.6 102 16 99/72 (81) 93 01/09/19 16:00 98.3 103 20 107/69 (82) 95 Intake and Output 01/09/19 01/10/19 19:00 07:00 Intake Total 600 ml 890.0 ml Output Total 600 ml 450 ml Balance 0 ml 440.0 ml Intake Oral 600 ml 780 ml IV Total 110.0 ml Output Urine Total 600 ml 450 ml # Voids 3 3 # Bowel Movements 1 2 Laboratory Tests 01/10/19 05:15: White Blood Count 22.8*H, Red Blood Count 2.86L, Hemoglobin 9.1L, Hematocrit 28.7L, Mean Corpuscular Volume 100H, Mean Corpuscular Hemoglobin 31.8H, Mean Corpuscular Hemoglobin Concent 31.7L, Red Cell Distribution Width 15.5H, Platelet Count 290, Mean Platelet Volume 6.6, Neutrophils (%) (Auto) , Lymphocytes (%) (Auto) , Monocytes (%) (Auto) , Eosinophils (%) (Auto) , Basophils (%) (Auto) , Differential Total Cells Counted 100, Neutrophils % ( Manual) 88H, Lymphocytes % (Manual) 7L, Monocytes % (Manual) 4, Eosinophils % ( Manual) 1, Basophils % (Manual) 0, Band Neutrophils 0, Platelet Estimate Adequate, Platelet Morphology Normal, Hypochromasia 2+, Anisocytosis 1+, Sodium Level 141, Potassium Level 3.3L, Chloride Level 106, Carbon Dioxide Level 25, Anion Gap 11, Blood Urea Nitrogen 22H, Creatinine 1.0, Estimat Glomerular Filtration Rate > 60, Glucose Level 155H, Calcium Level 7.4L, Total Bilirubin 12.5H, Direct Bilirubin 10.6H, Aspartate Amino Transf (AST/SGOT) 106H, Alanine Aminotransferase (ALT/SGPT) 21, Alkaline Phosphatase 458H, Total Protein 5.0L, Albumin 1.4L, Globulin 3.6, Albumin/Globulin Ratio 0.4L Height (Feet): 5 Height (Inches): 5.00 Weight (Pounds): 188 General Appearance: lethargic EENT: normal ENT inspection Neck: normal alignment Cardiovascular: normal peripheral pulses, normal rate, regular rhythm Respiratory/Chest: chest wall non-tender, lungs clear, normal breath sounds Abdomen: normal bowel sounds, soft, distended Extremities: normal inspection Edema: no edema noted Arm (L), no edema noted Arm (R), no edema noted Leg (L), no edema noted Leg (R), no edema noted Pedal (L), no edema noted Pedal (R), no edema noted Generalized Neurologic: motor weakness Skin: normal pigmentation, warm/dry Corwin Martinez DO Jan 10, 2019 13:41
--- NOTE | 2019-01-10 14:46 | Nephrology Progress Note ---
Assessment/Plan Problem List: (1) Alcoholic liver disease (2) Anemia (3) Electrolyte disorder (4) Jaundice Assessment Acute Alcoholic Gastritis / Encephalopathy - Intoxication Alcoholic Hepatitis Anemia Hypokalemia Psych disease Plan labs noted KCL PO PO steroids on hold by GI has PICC now K and Mag and Phos supplement as needed Monitor lytes / Lfts per orders Subjective ROS Limited/Unobtainable: No Constitutional: Reports: malaise Objective Objective Last 24 Hour Vital Signs Date Time Temp Pulse Resp B/P (MAP) Pulse Ox O2 Delivery O2 Flow Rate FiO2 01/10/19 09:54 Nasal Cannula 2.0 01/10/19 08:00 98.4 93 18 93/63 (73) 92 01/10/19 04:00 97.2 95 20 100/64 (76) 95 01/10/19 00:00 97.4 89 18 105/68 (80) 95 01/09/19 21:00 Room Air 01/09/19 20:00 97.6 102 16 99/72 (81) 93 01/09/19 16:00 98.3 103 20 107/69 (82) 95 Intake and Output 01/09/19 01/10/19 19:00 07:00 Intake Total 600 ml 890.0 ml Output Total 600 ml 450 ml Balance 0 ml 440.0 ml Intake Oral 600 ml 780 ml IV Total 110.0 ml Output Urine Total 600 ml 450 ml # Voids 3 3 # Bowel Movements 1 2 Laboratory Tests 01/10/19 05:15: White Blood Count 22.8*H, Red Blood Count 2.86L, Hemoglobin 9.1L, Hematocrit 28.7L, Mean Corpuscular Volume 100H, Mean Corpuscular Hemoglobin 31.8H, Mean Corpuscular Hemoglobin Concent 31.7L, Red Cell Distribution Width 15.5H, Platelet Count 290, Mean Platelet Volume 6.6, Neutrophils (%) (Auto) , Lymphocytes (%) (Auto) , Monocytes (%) (Auto) , Eosinophils (%) (Auto) , Basophils (%) (Auto) , Differential Total Cells Counted 100, Neutrophils % ( Manual) 88H, Lymphocytes % (Manual) 7L, Monocytes % (Manual) 4, Eosinophils % ( Manual) 1, Basophils % (Manual) 0, Band Neutrophils 0, Platelet Estimate Adequate, Platelet Morphology Normal, Hypochromasia 2+, Anisocytosis 1+, Sodium Level 141, Potassium Level 3.3L, Chloride Level 106, Carbon Dioxide Level 25, Anion Gap 11, Blood Urea Nitrogen 22H, Creatinine 1.0, Estimat Glomerular Filtration Rate > 60, Glucose Level 155H, Calcium Level 7.4L, Total Bilirubin 12.5H, Direct Bilirubin 10.6H, Aspartate Amino Transf (AST/SGOT) 106H, Alanine Aminotransferase (ALT/SGPT) 21, Alkaline Phosphatase 458H, Total Protein 5.0L, Albumin 1.4L, Globulin 3.6, Albumin/Globulin Ratio 0.4L Height (Feet): 5 Height (Inches): 5.00 Weight (Pounds): 188 Objective no change Leonard Bautista MD Jan 10, 2019 14:46
[2019-01-10 16:00] VITALS: BP 104/63
--- NOTE | 2019-01-10 17:24 | Cardiac Electrophysiology PN ---
Assessment/Plan Assessment/Plan 1. Hypotension 90s and sinus tach 100s, on Midodrine 10 tid 2. Atypical Chest pain . EKG nonspecific ST-T wave abnormality. No [place]. Echo EF 55% 3. Persistent hypokalemia. Corrected. 4. Leukocytosis. On Abx and steroid 5. ETOH Cirrhosis with Bilirubin 14. FU GI. 6. Hospice Care Subjective Subjective No events on NMB.Awaiting Placement Objective Last 24 Hour Vital Signs Date Time Temp Pulse Resp B/P (MAP) Pulse Ox O2 Delivery O2 Flow Rate FiO2 01/10/19 16:00 98.3 117 19 104/63 (77) 93 01/10/19 09:54 Nasal Cannula 2.0 01/10/19 08:00 98.4 93 18 93/63 (73) 92 01/10/19 04:00 97.2 95 20 100/64 (76) 95 01/10/19 00:00 97.4 89 18 105/68 (80) 95 01/09/19 21:00 Room Air 01/09/19 20:00 97.6 102 16 99/72 (81) 93 Intake and Output 01/09/19 01/10/19 19:00 07:00 Intake Total 600 ml 890.0 ml Output Total 600 ml 450 ml Balance 0 ml 440.0 ml Intake Oral 600 ml 780 ml IV Total 110.0 ml Output Urine Total 600 ml 450 ml # Voids 3 3 # Bowel Movements 1 2 Laboratory Tests Test 01/10/19 05:15 White Blood Count 22.8 K/UL (4.8-10.8) *H Red Blood Count 2.86 M/UL (4.70-6.10) L Hemoglobin 9.1 G/DL (14.2-18.0) L Hematocrit 28.7 % (42.0-52.0) L Mean Corpuscular Volume 100 FL (80-99) H Mean Corpuscular Hemoglobin 31.8 PG (27.0-31.0) H Mean Corpuscular Hemoglobin Concent 31.7 G/DL (32.0-36.0) L Red Cell Distribution Width 15.5 % (11.6-14.8) H Platelet Count 290 K/UL (150-450) Mean Platelet Volume 6.6 FL (6.5-10.1) Neutrophils (%) (Auto) % (45.0-75.0) Lymphocytes (%) (Auto) % (20.0-45.0) Monocytes (%) (Auto) % (1.0-10.0) Eosinophils (%) (Auto) % (0.0-3.0) Basophils (%) (Auto) % (0.0-2.0) Differential Total Cells Counted 100 Neutrophils % (Manual) 88 % (45-75) H Lymphocytes % (Manual) 7 % (20-45) L Monocytes % (Manual) 4 % (1-10) Eosinophils % (Manual) 1 % (0-3) Basophils % (Manual) 0 % (0-2) Band Neutrophils 0 % (0-8) Platelet Estimate Adequate Platelet Morphology Normal Hypochromasia 2+ Anisocytosis 1+ Sodium Level 141 MMOL/L (136-145) Potassium Level 3.3 MMOL/L (3.5-5.1) L Chloride Level 106 MMOL/L (98-107) Carbon Dioxide Level 25 MMOL/L (21-32) Anion Gap 11 mmol/L (5-15) Blood Urea Nitrogen 22 mg/dL (7-18) H Creatinine 1.0 MG/DL (0.55-1.30) Estimat Glomerular Filtration Rate > 60 mL/min (>60) Glucose Level 155 MG/DL (74-106) H Calcium Level 7.4 MG/DL (8.5-10.1) L Total Bilirubin 12.5 MG/DL (0.2-1.0) H Direct Bilirubin 10.6 MG/DL (0.0-0.3) H Aspartate Amino Transf (AST/SGOT) 106 U/L (15-37) H Alanine Aminotransferase (ALT/SGPT) 21 U/L (12-78) Alkaline Phosphatase 458 U/L (46-116) H Total Protein 5.0 G/DL (6.4-8.2) L Albumin 1.4 G/DL (3.4-5.0) L Globulin 3.6 g/dL Albumin/Globulin Ratio 0.4 (1.0-2.7) L Objective HEENT: Jaundiced sclera Cardiovascular: normal S1 and S2 and no murmur Respiratory/Chest: normal breath sounds, no respiratory distress Abdominal Exam: normal bowel sounds, non tender, soft with ascites Extremities: normal range of motion, non-tender. 1 plus edema Toluie,Franck MD Jan 10, 2019 17:24
--- NOTE | 2019-01-10 19:56 | NUR ---
HAND-OFF: Report given to WILFRIDO SOUTH.PATIENT STABLE..
[2019-01-10 20:00] VITALS: BP 93/67
--- NOTE | 2019-01-10 20:00 | NUR ---
NURSE NOTES: Receive a report from BRANNON Gibson. Pt is asleep but aroused easily by calling name. Verbally responsive in Brazilian his own needs. Breathing is even and non labored. No acute distress noted. No pain noted. Jaundice and abdominal distension noted. No itching noted. Keep Semi-Wan's position for lung expansion. Lung sound is clear upon auscultation. PICC on left upper arm tegarderm dressing done without infection signs. Leave call light within reach. Bed is locked with lowest position. Provide frequent visual rounds for anticipated needs. Will continue to monitor.
[2019-01-10] MEDS: Dyna-Hex 2% Top Sol 2oz TOPIC SCH (20:31)
--- NOTE | 2019-01-10 23:47 | Neurology Progress Note ---
Interim History Interim History ROS Limited/Unobtainable: No Complaints: AMS Events: This visit was performed on January 10, [address] Dee. Interim History Awaiting D/C to hospice. Review of Systems Neuro Review of Systems Exam continues to wax/ wane Objective Physical Exam Last Vital Signs Date Time Temp Pulse Resp B/P (MAP) Pulse Ox O2 Delivery O2 Flow Rate FiO2 01/10/19 21:00 Room Air 01/10/19 20:00 97.4 114 20 93/67 (76) 90 01/10/19 09:54 2.0 Laboratory Tests Test 01/10/19 05:15 White Blood Count 22.8 K/UL (4.8-10.8) *H Red Blood Count 2.86 M/UL (4.70-6.10) L Hemoglobin 9.1 G/DL (14.2-18.0) L Hematocrit 28.7 % (42.0-52.0) L Mean Corpuscular Volume 100 FL (80-99) H Mean Corpuscular Hemoglobin 31.8 PG (27.0-31.0) H Mean Corpuscular Hemoglobin Concent 31.7 G/DL (32.0-36.0) L Red Cell Distribution Width 15.5 % (11.6-14.8) H Platelet Count 290 K/UL (150-450) Mean Platelet Volume 6.6 FL (6.5-10.1) Neutrophils (%) (Auto) % (45.0-75.0) Lymphocytes (%) (Auto) % (20.0-45.0) Monocytes (%) (Auto) % (1.0-10.0) Eosinophils (%) (Auto) % (0.0-3.0) Basophils (%) (Auto) % (0.0-2.0) Differential Total Cells Counted 100 Neutrophils % (Manual) 88 % (45-75) H Lymphocytes % (Manual) 7 % (20-45) L Monocytes % (Manual) 4 % (1-10) Eosinophils % (Manual) 1 % (0-3) Basophils % (Manual) 0 % (0-2) Band Neutrophils 0 % (0-8) Platelet Estimate Adequate Platelet Morphology Normal Hypochromasia 2+ Anisocytosis 1+ Sodium Level 141 MMOL/L (136-145) Potassium Level 3.3 MMOL/L (3.5-5.1) L Chloride Level 106 MMOL/L (98-107) Carbon Dioxide Level 25 MMOL/L (21-32) Anion Gap 11 mmol/L (5-15) Blood Urea Nitrogen 22 mg/dL (7-18) H Creatinine 1.0 MG/DL (0.55-1.30) Estimat Glomerular Filtration Rate > 60 mL/min (>60) Glucose Level 155 MG/DL (74-106) H Calcium Level 7.4 MG/DL (8.5-10.1) L Total Bilirubin 12.5 MG/DL (0.2-1.0) H Direct Bilirubin 10.6 MG/DL (0.0-0.3) H Aspartate Amino Transf (AST/SGOT) 106 U/L (15-37) H Alanine Aminotransferase (ALT/SGPT) 21 U/L (12-78) Alkaline Phosphatase 458 U/L (46-116) H Total Protein 5.0 G/DL (6.4-8.2) L Albumin 1.4 G/DL (3.4-5.0) L Globulin 3.6 g/dL Albumin/Globulin Ratio 0.4 (1.0-2.7) L General: well developed, other Head: other Neck: no rigidity EENT: other - Visible right nasal polyp, skin tag, lesion - Neurologic Exam Mental Status: awake, alert, other Speech: other Language: other Cranial Nerve II: fundus normal, visual osorio, other Cranial Nerves III, IV, : PERRLA, EOMI, other Cranial Nerve V: normal facial sensations, temporales function normal, other Cranial Nerve VII: no facial asymmetry, other Cranial Nerve VIII: normal hearing, other Cranial Nerve IX: normal palate elevation, other Cranial Nerve X: no voice hoarseness, other Cranial Nerve XI: SCM symmetric, other Cranial Nerve XII: tongue midline, other Motor System: no involuntary movement, other Sensory: normal pinprick, normal light touch, normal position sense, normal graphesthesia, other Coordination: other - More appropriately verbal in conversation at times with depressed affect and difficulty following instructions during examination. Deep Tendon Reflexes: 1+ bicep (L), 1+ bicep (R), 1+ tricep (L), 1+ tricep (R) , 1+ brachioradialis (L), 1+ brachioradialis (R), 1+ knee (L), 1+ knee (R), 1+ ankle (L), 1+ ankle (R) Stance: other - Patient remains weak throughout all extremities with non focal exam. He is more appropriate in conversation today but remains non focal and encephalopathic Gait: other Objective Patient is alert and oriented to circumstances with intermittent episodes of agitation/ confusion. He remains non focal and weak throughout Impression/Recommendations Problems: (1) Acute upper GI bleed (2) Fecal impaction in rectum (3) Esophagitis (4) Alcoholic liver disease (5) Elevated LFTs (6) Acute alcoholic gastritis (7) Psychosis (8) Acute alcoholic intoxication (9) Acute encephalopathy (10) Hypocalcemia Status: stable, unchanged Recommendations Continue Lactulose Continue Q4 Neuro obs CIWA protocol PT Frequent reorientation Maintenance of good sleep hygiene with nonessential care withheld overnights HgB>8 Psych recommendations regarding best non-sedating behavioral medications with least hepatic excretion at this time. Oral feeding PRN all day given nutritional status and care goals Awaiting hospice D/C Stable for D/C from a neurological perspective but we will continue to monitor. Anika Pettit N.P. Jan 10, 2019 23:47
[2019-01-11] VITALS: BP 95/56
[2019-01-11 04:00] VITALS: BP 94/68
[2019-01-11] MEDS: Piperacillin/Tazobactam 3.375 GM in NS 110 ML IVPB SCH ×3 (05:16→21:01)
--- NOTE | 2019-01-11 05:23 | NUR ---
NURSE NOTES: Per Dr. Schneider's order, "NO MORE LAB DRAWS, COMFORT MEASURES ONLY". RN tried to cancel through [employer] but computer automatically denies the request cancel. Called lab & spoke to Alee to cancel labs for per 's order. Nazanin will cancel the orders.
--- NOTE | 2019-01-11 07:08 | NUR ---
NURSE NOTES: Telephone consent obtain from Malinda (sister) for ultrasound guided parecentesis. Witnessed by Lowell Issa RN.
--- NOTE | 2019-01-11 07:33 | NUR ---
CASE MANAGEMENT:REVIEW 01/11/19 SI: ACUTE ENCEPHALOPATHY ALCOHOLIC LIVER DISEASE 98.8 100 19 94/68 92% ON RA IS: IV ZOSYN Q8HRS RIFAXIMIN PO Q12 MIDODRINE PO TID LACTULOSE PO TID PROTONIX PO BID K-DUR PO BID :MED/SURG STATUS 3 EAST PLAN: CONSENT FOR US GUIDED PARACENTESIS WAS UNABLE TO FIND ANY ACCEPTING SNF D/T PATIENT'S HISTORY OF ALCOHOLISM PLAN IS TO DISCHARGE TODAY TO "[facility]" UNDER HOSPICE CARE
--- NOTE | 2019-01-11 07:37 | NUR ---
NURSE NOTES: US called to confirm pt's procedure for US guided paracentesis. Per US, Dr. Myers will do the procedure later. No definite time yet. US will call for updates. Will endorse to AM shift.
--- NOTE | 2019-01-11 07:38 | NUR ---
HAND-OFF: Report given to BRANNON Whitlock. Rounds done. Pt in stable condition.
[2019-01-11 08:00] VITALS: BP 96/61
--- NOTE | 2019-01-11 08:10 | NUR ---
NURSE NOTES: Pt is currently sleeping remains NPO. Awaiting for procedure later in shift. No pending labs, per Dr Schneider
--- NOTE | 2019-01-11 08:30 | NUR ---
NURSE NOTES: Pt went down for procedure.
--- NOTE | 2019-01-11 08:32 | Pre-Procedure Note/Attestation ---
Pre-Procedure Note/Attestation Complete Prior to Procedure Planned Procedure: not applicable Procedure Narrative: paracentesis Indications for Procedure Pre-Operative Diagnosis: ascites Attestation I attest that I discussed the nature of the procedure; its benefits; risks and complications; and alternatives (and the risks and benefits of such alternatives ), prior to the procedure, with the patient (or the patient's legal rental sales representative). I attest that, if there was a reasonable possibility of needing a blood transfusion, the patient (or the patient's legal rental sales representative) was given the [facility] standardized written summary, pursuant to the Mykel Theodora Blood Safety Act ([place] Health and Safety Code # 1645, as amended). I attest that I re-evaluated the patient just prior to the surgery and that there has been no change in the patient's H&P, except as documented below: discussed by phone with pt's. sister Marco Torres MD Jan 11, 2019 08:32
--- NOTE | 2019-01-11 08:59 | Brief Operative Note ---
Immediate Post Operative Note Operative Note Pre-op Diagnosis: ascites Procedure: paracentesis Post-op Diagnosis: same as pre-op Surgeon: Tommy MYERS Anesthesia: local Specimen: yes - bright yellow fluid sent to lab Complications: none Fluids: none Implant(s) used?: No Marco Myers MD Jan 11, 2019 08:59
--- NOTE | 2019-01-11 09:46 | GI Progress Note ---
Assessment/Plan Problems: (1) Acute alcoholic gastritis ICD Codes: K29.20 - Alcoholic gastritis without bleeding SNOMED: 2767337 Qualifiers: Qualified Codes: K29.20 - Alcoholic gastritis without bleeding (2) Elevated LFTs ICD Codes: R94.5 - Abnormal results of liver function studies SNOMED: 474786421, 875528550 (3) Alcoholic liver disease ICD Codes: K70.9 - Alcoholic liver disease, unspecified SNOMED: 07073614 (4) Esophagitis ICD Codes: K20.9 - Esophagitis, unspecified SNOMED: 47995694 (5) Acute encephalopathy ICD Codes: G93.40 - Encephalopathy, unspecified SNOMED: 06641743, 660364074 (6) Psychosis ICD Codes: F29 - Unspecified psychosis not due to a substance or known physiological condition SNOMED: 04038111 (7) Acute alcoholic intoxication ICD Codes: F10.929 - Alcohol use, unspecified with intoxication, unspecified SNOMED: 63827348 Status: unchanged Status Narrative Discussed with Dr. Rich Assessment/Plan Imaging noted, cirrhosis US with doppler r/o Budd-Chiari Syndrome>> negative OB stool negative Stable H&H discriminant function calculated, patient will benefit from glucocorticoid therapy >> held due to elevated WBC Paracentesis, rule out SBP lactulose + xifaxan monitor H&H, prn transfusions bowel regimen ppi fu labs fu neurology recs Will benefit from endoscopy to evaluate for esophageal varices as outpatient dc planning The patient was seen and examined at bedside and all new and available data was reviewed in the patients chart. I agree with the above findings, impression and plan. (Patient seen earlier today. Signature stamp does not reflect patient encounter time.). - Jarod Rich MD Subjective Subjective Abdominal distention Objective Last 24 Hour Vital Signs Date Time Temp Pulse Resp B/P (MAP) Pulse Ox O2 Delivery O2 Flow Rate FiO2 01/11/19 04:00 98.8 100 19 94/68 (77) 92 01/11/19 00:00 97.6 98 18 95/56 (69) 92 01/10/19 21:00 Room Air 01/10/19 20:00 97.4 114 20 93/67 (76) 90 01/10/19 16:00 98.3 117 19 104/63 (77) 93 01/10/19 09:54 Nasal Cannula 2.0 Intake and Output 01/10/19 01/11/19 18:59 06:59 Intake Total 480 ml Balance 480 ml Intake Oral 480 ml # Voids 2 2 # Bowel Movements 1 4 Laboratory Tests Test 01/11/19 08:35 Body Fluid Glucose Pending Body Fluid Total Protein Pending Body Fluid Albumin Pending Height (Feet): 5 Height (Inches): 5.00 Weight (Pounds): 195 General Appearance: WD/WN, no apparent distress, alert Cardiovascular: normal rate Respiratory/Chest: normal breath sounds, no respiratory distress Abdominal Exam: normal bowel sounds, non tender, soft, distended Extremities: normal range of motion, non-tender Luisana Craft NP Jan 11, 2019 09:46
--- NOTE | 2019-01-11 10:05 | NUR ---
NURSE NOTES: Pt returned from paracentesis 7.4 liters removed. Pt arrived sleeping awakened to give medications , pt repeatedly asked for sleeping pill because he can not sleep. Pt had to be touched on the shoulder to awaken. " I will walk to you so I can get it" Informed of time of day. " Then I will just close my eyes since you are telling me it is day time. " Abdomen visibly smaller. Attempted to listen to bowel sounds pt pushed my hand away, " I want to sleep" Will reattempt.
[2019-01-11] MEDS: Lactulose 20gm/30ml UDC ORAL SCH ×3 (10:12→17:26)
--- NOTE | 2019-01-11 11:07 | Diagnostic Imaging Report ---
Indications: Ascites Technique: Ultrasound used to localize optimal puncture site. Sterile prepping and draping right lower quadrant. Local anesthesia with 1% lidocaine. Under real-time ultrasound guidance, puncture peritoneal space using paracentesis needle. Stylet removed. Catheter placed to vacuum bottle suction. Total 7.4 liters of bright yellow fluid aspirated. Patient tolerated procedure well, without immediate complication. A specimen was sent to the lab Findings: Followup sonography demonstrates complete resolution of peritoneal fluid. Impression: Successful ultrasound-guided paracentesis, yielding 7.4 liters of fluid
--- NOTE | 2019-01-11 11:09 | NUR ---
*-* INSURANCE *-* UPDATED CLINICALS & REVIEWS HAVE BEEN FAXED TO [facility]: DOMINGUEZ Iglesias P- [phone] F- [phone].....REVIEW/CLINICAL
[2019-01-11 12:00] VITALS: BP 84/55
--- NOTE | 2019-01-11 12:04 | Nephrology Progress Note ---
Assessment/Plan Problem List: (1) Alcoholic liver disease (2) Anemia (3) Electrolyte disorder (4) Jaundice Assessment Acute Alcoholic Gastritis / Encephalopathy - Intoxication Alcoholic Hepatitis Anemia Hypokalemia Psych disease Plan labs noted KCL PO PO steroids on hold by GI has PICC now K and Mag and Phos supplement as needed Monitor lytes / Lfts per orders Subjective ROS Limited/Unobtainable: No Objective Objective Last 24 Hour Vital Signs Date Time Temp Pulse Resp B/P (MAP) Pulse Ox O2 Delivery O2 Flow Rate FiO2 01/11/19 08:00 98.9 93 18 96/61 (73) 96 01/11/19 04:00 98.8 100 19 94/68 (77) 92 01/11/19 00:00 97.6 98 18 95/56 (69) 92 01/10/19 21:00 Room Air 01/10/19 20:00 97.4 114 20 93/67 (76) 90 01/10/19 16:00 98.3 117 19 104/63 (77) 93 Intake and Output 01/10/19 01/11/19 18:59 06:59 Intake Total 480 ml Balance 480 ml Intake Oral 480 ml # Voids 2 2 # Bowel Movements 1 4 Laboratory Tests 01/11/19 08:35: Body Fluid Glucose [Pending], Body Fluid Total Protein [Pending], Body Fluid Albumin [Pending] Height (Feet): 5 Height (Inches): 5.00 Weight (Pounds): 195 Objective no change Leonard Bautista MD Jan 11, 2019 12:04
--- NOTE | 2019-01-11 14:07 | Infectious Diseases Prog Note ---
Assessment/Plan Assessment/Plan 58 yo male with PMHx of EtOH abuse, Depression and anxiety, SI who presented to the ED on 12/29/18 with N/V and abdominal pain. Leukocytosis and single high temp- S/P Prednisone 01/09/19 Likely due to gastritis from EtOH need -MRCP : Very limited exam, as described. Normal caliber bile ducts without definite filling defects to suggest choledocholithiasis Cholelithiasis. Gallbladder wall thickening, also described on prior sonogram. Most likely on the basis of hepatocellular derangement but the possibility of acute cholecystitis should also be considered. Ascites. Abnormal hepatic morphology, also previously described, suggestive of cirrhotic change -Abd US: Hepatomegaly. Coarsened hepatic echogenicity and surface nodularitysuggests cirrhosis. Ascites, not demonstrated previously. Cholelithiasis and gallbladder sludge, not evident previously. Gallbladder wall thickening and pericholecystic fluid, probably due to the hepatocellular derangements, but the possibility of acute cholecystitis should also be considered. Correlate with clinical findings, consider nuclear medicine hepatobiliary scan if clinically indicated. Negative for dilated bile ducts. Incidental finding small left renal cyst -CT abd/p: Chronic liver disease/cirrhosis with fatty infiltration, enlargement of the liver and stigmata of portal hypertension including ascites and splenomegaly, recanalized umbilical vein. Basilar atelectasis. Probable gallstones. Tiny bilateral renal hypodensities too small to characterize.Fecal impaction Cirrhosis EtOH abuse Hep A/B/C - Pend Depression and anxiety SI HIV (-) PLAN: - Continue Zosyn #5/10 for possible acute cholecystitis - 01/08/19 S/P Levofloxacin #6 and Flagyl #6 - 01/03/19 S/P Zosyn #5 - f/u paracentesis cx - Monitor CBC and Temps - Monitor clinically - Consider paracentesis for symptom relief We will continue to follow the patient during this hospitalization. Subjective Allergies: Coded Allergies: No Known Allergies (Verified , 10/22/06) Subjective S/P Paracentesis yesterday 7.4L fluid removed Afebrile Objective Vital Signs Last 24 Hour Vital Signs Date Time Temp Pulse Resp B/P (MAP) Pulse Ox O2 Delivery O2 Flow Rate FiO2 01/11/19 08:00 98.9 93 18 96/61 (73) 96 01/11/19 04:00 98.8 100 19 94/68 (77) 92 01/11/19 00:00 97.6 98 18 95/56 (69) 92 01/10/19 21:00 Room Air 01/10/19 20:00 97.4 114 20 93/67 (76) 90 01/10/19 16:00 98.3 117 19 104/63 (77) 93 Height (Feet): 5 Height (Inches): 5.00 Weight (Pounds): 195 Objective Gen: Uncomfortable HEENT: NCAT, MMM, EOMI LUNGS: CTAB, No W CARDS: RRR, S1, S2, No M/R/G, ABD: Soft, Mild TTP, Distended, No R/G Laboratory Tests Test 01/11/19 08:35 Body Fluid Glucose Pending Body Fluid Total Protein Pending Body Fluid Albumin Pending Current Medications Medications (Trade) Dose Ordered Sig/Clyde Route PRN Reason Start Time Stop Time Status Last Admin Dose Admin Acetaminophen (Tylenol) 650 mg Q4H PRN ORAL Mild Pain/Temp > 100.5 01/05/19 18:23 02/04/19 18:22 01/10/19 19:07 Chlorhexidine Gluconate (Sharmila-Hex 2%) 1 applic DAILY@1999 TOPIC 01/05/19 20:00 02/01/19 19:59 01/10/19 20:31 Dextrose (Dextrose 50%) 25 ml Q30M PRN IV Hypoglycemia 01/05/19 18:30 01/28/19 16:29 Dextrose (Dextrose 50%) 50 ml Q30M PRN IV Hypoglycemia 01/05/19 18:30 01/28/19 16:29 Lactulose (Cephulac) 30 gm THREE TIMES A DAY ORAL 01/06/19 09:00 02/01/19 08:59 01/11/19 10:12 Lorazepam (Ativan 2mg/ml 1ml) 0.5 mg Q4H PRN IV For Anxiety 01/05/19 18:24 01/12/19 18:23 01/09/19 00:02 Lorazepam (Ativan 2mg/ml 1ml) 2 mg Q1H PRN IV SEIZURES 01/05/19 18:24 01/12/19 18:23 Midodrine (Pro-Amatine) 10 mg THREE TIMES A DAY ORAL 01/07/19 13:00 02/01/19 12:59 01/11/19 10:11 Ondansetron HCl (Zofran) 4 mg Q6H PRN IVP Nausea & Vomiting 01/05/19 18:25 02/04/19 18:24 Pantoprazole (Protonix) 40 mg BID ORAL 01/06/19 09:00 01/28/19 17:59 01/11/19 10:12 Piperacillin Sod/ Tazobactam Sod 3.375 gm/Sodium Chloride 110 ml @ 27.5 mls/hr EVERY 8 HOURS IVPB 01/07/19 14:00 01/12/19 13:59 01/11/19 05:16 Potassium Chloride (K-Dur) 20 meq TWICE A DAY ORAL 01/10/19 15:00 01/11/19 14:59 01/11/19 10:11 Rifaximin (Xifaxan) 550 mg EVERY 12 HOURS ORAL 01/09/19 16:00 01/16/19 15:59 01/11/19 10:11 Devon Kingsley MD Jan 11, 2019 14:07
--- NOTE | 2019-01-11 14:20 | Pulmonology Progress Note ---
Assessment/Plan Problems: (1) End stage liver disease (2) Acute upper GI bleed (3) Acute alcoholic intoxication (4) Coagulopathy (5) Psychosis (6) Acute encephalopathy (7) Alcoholic liver disease Assessment/Plan s/p paracentesis, 7 liters removed symptomatic treatment lactulose f/u Ammonia level. Subjective ROS Limited/Unobtainable: No Interval Events: had paracentesis, 7 liters removed Constitutional: Reports: no symptoms HEENT: Repors: no symptoms Allergies: Coded Allergies: No Known Allergies (Verified , 10/22/06) Objective Last 24 Hour Vital Signs Date Time Temp Pulse Resp B/P (MAP) Pulse Ox O2 Delivery O2 Flow Rate FiO2 01/11/19 08:00 98.9 93 18 96/61 (73) 96 01/11/19 04:00 98.8 100 19 94/68 (77) 92 01/11/19 00:00 97.6 98 18 95/56 (69) 92 01/10/19 21:00 Room Air 01/10/19 20:00 97.4 114 20 93/67 (76) 90 01/10/19 16:00 98.3 117 19 104/63 (77) 93 Intake and Output 01/10/19 01/11/19 18:59 06:59 Intake Total 480 ml Balance 480 ml Intake Oral 480 ml # Voids 2 2 # Bowel Movements 1 4 General Appearance: cachetic HEENT: normocephalic, atraumatic Respiratory/Chest: chest wall non-tender, lungs clear Cardiovascular: normal peripheral pulses, normal rate Abdomen: normal bowel sounds, soft, non tender Genitourinary: normal external genitalia Extremities: no clubbing Skin: no rash Laboratory Tests 01/11/19 08:35: Body Fluid Glucose [Pending], Body Fluid Total Protein [Pending], Body Fluid Albumin [Pending] Current Medications Medications (Trade) Dose Ordered Sig/Clyde Route PRN Reason Start Time Stop Time Status Last Admin Dose Admin Acetaminophen (Tylenol) 650 mg Q4H PRN ORAL Mild Pain/Temp > 100.5 01/05/19 18:23 02/04/19 18:22 01/10/19 19:07 Chlorhexidine Gluconate (Sharmila-Hex 2%) 1 applic DAILY@1999 TOPIC 01/05/19 20:00 02/01/19 19:59 01/10/19 20:31 Dextrose (Dextrose 50%) 25 ml Q30M PRN IV Hypoglycemia 01/05/19 18:30 01/28/19 16:29 Dextrose (Dextrose 50%) 50 ml Q30M PRN IV Hypoglycemia 01/05/19 18:30 01/28/19 16:29 Lactulose (Cephulac) 30 gm THREE TIMES A DAY ORAL 01/06/19 09:00 02/01/19 08:59 01/11/19 10:12 Lorazepam (Ativan 2mg/ml 1ml) 0.5 mg Q4H PRN IV For Anxiety 01/05/19 18:24 01/12/19 18:23 01/09/19 00:02 Lorazepam (Ativan 2mg/ml 1ml) 2 mg Q1H PRN IV SEIZURES 01/05/19 18:24 01/12/19 18:23 Midodrine (Pro-Amatine) 10 mg THREE TIMES A DAY ORAL 01/07/19 13:00 02/01/19 12:59 01/11/19 10:11 Ondansetron HCl (Zofran) 4 mg Q6H PRN IVP Nausea & Vomiting 01/05/19 18:25 02/04/19 18:24 Pantoprazole (Protonix) 40 mg BID ORAL 01/06/19 09:00 01/28/19 17:59 01/11/19 10:12 Piperacillin Sod/ Tazobactam Sod 3.375 gm/Sodium Chloride 110 ml @ 27.5 mls/hr EVERY 8 HOURS IVPB 01/07/19 14:00 01/12/19 13:59 01/11/19 05:16 Potassium Chloride (K-Dur) 20 meq TWICE A DAY ORAL 01/10/19 15:00 01/11/19 14:59 01/11/19 10:11 Rifaximin (Xifaxan) 550 mg EVERY 12 HOURS ORAL 01/09/19 16:00 01/16/19 15:59 01/11/19 10:11 Marion Schneider MD Jan 11, 2019 14:20
--- NOTE | 2019-01-11 15:09 | General Progress Note ---
Assessment/Plan Problem List: (1) Abdominal pain ICD Codes: R10.9 - Unspecified abdominal pain SNOMED: 34515991 (2) Anemia ICD Codes: D64.9 - Anemia, unspecified SNOMED: 849787455 (3) Alcoholic liver disease ICD Codes: K70.9 - Alcoholic liver disease, unspecified SNOMED: 51195893 (4) Acute alcoholic gastritis ICD Codes: K29.20 - Alcoholic gastritis without bleeding SNOMED: 8003888 Qualifiers: Qualified Codes: K29.20 - Alcoholic gastritis without bleeding Status: unchanged Assessment/Plan: detox gi f/u cbc bmp dc plan snf if clear Subjective Constitutional: Reports: weakness Allergies: Coded Allergies: No Known Allergies (Verified , 10/22/06) Subjective sleepy anxious Objective Last 24 Hour Vital Signs Date Time Temp Pulse Resp B/P (MAP) Pulse Ox O2 Delivery O2 Flow Rate FiO2 01/11/19 12:00 98.9 100 18 84/55 (65) 01/11/19 09:00 Room Air 01/11/19 08:00 98.9 93 18 96/61 (73) 96 01/11/19 04:00 98.8 100 19 94/68 (77) 92 01/11/19 00:00 97.6 98 18 95/56 (69) 92 01/10/19 21:00 Room Air 01/10/19 20:00 97.4 114 20 93/67 (76) 90 01/10/19 16:00 98.3 117 19 104/63 (77) 93 Intake and Output 01/10/19 01/11/19 18:59 06:59 Intake Total 480 ml Balance 480 ml Intake Oral 480 ml # Voids 2 2 # Bowel Movements 1 4 Laboratory Tests 01/11/19 08:35: Body Fluid Glucose [Pending], Body Fluid Total Protein [Pending], Body Fluid Albumin [Pending] Height (Feet): 5 Height (Inches): 5.00 Weight (Pounds): 195 General Appearance: lethargic EENT: normal ENT inspection Neck: normal alignment Cardiovascular: normal peripheral pulses, normal rate, regular rhythm Respiratory/Chest: chest wall non-tender, lungs clear, normal breath sounds Abdomen: soft, hypoactive bowel sounds, distended Extremities: normal inspection Edema: no edema noted Arm (L), no edema noted Arm (R), no edema noted Leg (L), no edema noted Leg (R), no edema noted Pedal (L), no edema noted Pedal (R), no edema noted Generalized Neurologic: motor weakness Skin: normal pigmentation, warm/dry Corwin Martinez DO Jan 11, 2019 15:09
--- NOTE | 2019-01-11 15:23 | NUR ---
P.T Note: late entry 04/12/19 P.T visit attempted however declined to participate due to c/o not feeling well. Pt requested to be seen tomorrow.
--- NOTE | 2019-01-11 15:58 | NUR ---
NURSE NOTES: Patient is in bed asleep. Stable. No facial grimacing or signs of discomfort noted. Patient is in bed in locked and lowest position with call light within reach. All safety measures provided. Will continue to monitor.
[2019-01-11 16:00] VITALS: BP 96/61
--- NOTE | 2019-01-11 16:11 | NUR ---
P.T NOTE: PATIENT REFUSED TO PARTICIPATE IN P.T. WILL REATTEMPT TOMORROW.
--- NOTE | 2019-01-11 16:15 | NUR ---
NURSE NOTES: Pt tolerated meal no nausea, PICC line patent, has cooperated with plan of care 7.4 liters of fluid removed . Pt calm today. report given to Cathy will take over run. Albumin pending at this time. Zosyn running
--- NOTE | 2019-01-11 16:51 | Cardiac Electrophysiology PN ---
Assessment/Plan Assessment/Plan 1. Hypotension 90s and sinus tach 100s, on Midodrine 10 tid 2. Atypical Chest pain . EKG nonspecific ST-T wave abnormality. No [place]. Echo EF 55% 3. Persistent hypokalemia. Corrected. 4. Leukocytosis. On Abx and steroid 5. ETOH Cirrhosis with Bilirubin 14. FU GI. S/P 7 liters of paracentesis today 6. Hospice Care Subjective Subjective Had 7 liters of paracentesis.Awaiting Placement Objective Last 24 Hour Vital Signs Date Time Temp Pulse Resp B/P (MAP) Pulse Ox O2 Delivery O2 Flow Rate FiO2 01/11/19 16:00 98.1 74 18 96/61 (73) 01/11/19 12:00 98.9 100 18 84/55 (65) 01/11/19 09:00 Room Air 01/11/19 08:00 98.9 93 18 96/61 (73) 96 01/11/19 04:00 98.8 100 19 94/68 (77) 92 01/11/19 00:00 97.6 98 18 95/56 (69) 92 01/10/19 21:00 Room Air 01/10/19 20:00 97.4 114 20 93/67 (76) 90 Intake and Output 01/10/19 01/11/19 19:00 07:00 Intake Total 480 ml Balance 480 ml Intake Oral 480 ml # Voids 2 2 # Bowel Movements 1 4 Laboratory Tests Test 01/11/19 08:35 Body Fluid Glucose Pending Body Fluid Total Protein Pending Body Fluid Albumin Pending Objective HEENT: Jaundiced sclera Cardiovascular: normal S1 and S2 and no murmur Respiratory/Chest: normal breath sounds, no respiratory distress Abdominal Exam: normal bowel sounds, non tender, soft with ascites Extremities: normal range of motion, non-tender. 1 plus edema Franck Saeed MD Jan 11, 2019 16:51
--- NOTE | 2019-01-11 19:30 | NUR ---
HAND-OFF: Report given to Gordo RN. Patient is stable.
[2019-01-11 20:00] VITALS: BP 94/62
--- NOTE | 2019-01-11 20:25 | NUR ---
NURSE NOTES: Pt is in bed, awake and alert. No acute distress noted. Pt is s/p thoracentesis. Pt is in bed, eating food. fall precaution in place. Bed locked low in position,side rails up, call light within reach. Bed alarm on. Pt instructed to call for assistance before getting out of bed. Pt will be monitored.
[2019-01-11] MEDS: Dyna-Hex 2% Top Sol 2oz TOPIC SCH (21:01)
[2019-01-12] VITALS: BP 95/63
--- NOTE | 2019-01-12 03:15 | NUR ---
NURSE NOTES: pt is in bed, awake and verbal. Pt had 3 soft BMs, pt was cleaned and bed linen changed multiple times. Pt is able to ambulate to the commode with assistance. Pt is on 2L nasal canula now. Fall precaution in place. Pt will be monitored. Bed alarm on.
[2019-01-12 04:00] VITALS: BP 94/65
[2019-01-12] MEDS: Piperacillin/Tazobactam 3.375 GM in NS 110 ML IVPB SCH ×3 (05:36→22:20)
[2019-01-12 06:18] LABS: HEMATOCRIT 27.3 % (42.0-52.0); HEMOGLOBIN 8.7 G/DL (14.2-18.0); MEAN CORPUSCULAR VOLUME 99 FL (80-99); PLATELET COUNT 279 K/UL (150-450); RED BLOOD COUNT 2.74 M/UL (4.70-6.10); RED CELL DISTRIBUTION WIDTH 15.3 % (11.6-14.8); WHITE BLOOD COUNT 21.7 K/UL (4.8-10.8)
--- NOTE | 2019-01-12 07:10 | NUR ---
HAND-OFF: Report given to BRANNON Whitlock. Pt is in bed, asleep. No acute distress noted. Informed oncoming RN that pt is fall risk.
--- NOTE | 2019-01-12 07:20 | NUR ---
NURSE NOTES: Pt remains sleeping per report pt did not sleep well last night. Pt requires monitoring for periods of impulsive bx
[2019-01-12 07:52] LABS: ALANINE AMINOTRANSFERASE 25 U/L (12-78); ALBUMIN 1.5 G/DL (3.4-5.0); ALBUMIN/GLOBULIN RATIO 0.5 (1.0-2.7); ALKALINE PHOSPHATASE 450 U/L (46-116); ANION GAP 11 mmol/L (5-15); ASPARTATE AMINO TRANSFERASE 120 U/L (15-37); BILIRUBIN,DIRECT 12.7 MG/DL (0.0-0.3); BILIRUBIN,TOTAL 14.5 MG/DL (0.2-1.0); BLOOD UREA NITROGEN 21 mg/dL (7-18); CALCIUM 7.6 MG/DL (8.5-10.1); CARBON DIOXIDE 24 MMOL/L (21-32); CHLORIDE 113 MMOL/L (98-107); CREATININE 0.8 MG/DL (0.55-1.30); PHOSPHORUS 1.7 MG/DL (2.5-4.9); POTASSIUM 3.5 MMOL/L (3.5-5.1); SODIUM 148 MMOL/L (136-145)
[2019-01-12 08:00] VITALS: BP 115/72
[2019-01-12] MEDS: Lactulose 20gm/30ml UDC ORAL SCH ×3 (09:00→18:00)
--- NOTE | 2019-01-12 10:10 | GI Progress Note ---
Assessment/Plan Problems: (1) Acute alcoholic gastritis ICD Codes: K29.20 - Alcoholic gastritis without bleeding SNOMED: 2115833 Qualifiers: Qualified Codes: K29.20 - Alcoholic gastritis without bleeding (2) Elevated LFTs ICD Codes: R94.5 - Abnormal results of liver function studies SNOMED: 713424328, 560542831 (3) Alcoholic liver disease ICD Codes: K70.9 - Alcoholic liver disease, unspecified SNOMED: 41239386 (4) Esophagitis ICD Codes: K20.9 - Esophagitis, unspecified SNOMED: 28032267 (5) Acute encephalopathy ICD Codes: G93.40 - Encephalopathy, unspecified SNOMED: 18589382, 999075101 (6) Psychosis ICD Codes: F29 - Unspecified psychosis not due to a substance or known physiological condition SNOMED: 27240990 (7) Acute alcoholic intoxication ICD Codes: F10.929 - Alcohol use, unspecified with intoxication, unspecified SNOMED: 96594510 Status: unchanged Status Narrative Discussed with Dr. Rich. Assessment/Plan Imaging noted, cirrhosis >> rising bili US with doppler r/o Budd-Chiari Syndrome>> negative OB stool negative Stable H&H discriminant function calculated, patient will benefit from glucocorticoid therapy >> held due to elevated WBC Paracentesis yielding 7.4L , rule out SBP >> negative lactulose + xifaxan monitor H&H, prn transfusions bowel regimen ppi fu labs fu neurology recs Will benefit from endoscopy to evaluate for esophageal varices as outpatient dc planning The patient was seen and examined at bedside and all new and available data was reviewed in the patients chart. I agree with the above findings, impression and plan. (Patient seen earlier today. Signature stamp does not reflect patient encounter time.). - Jarod Rich MD Subjective Subjective Abdominal distention Objective Last 24 Hour Vital Signs Date Time Temp Pulse Resp B/P (MAP) Pulse Ox O2 Delivery O2 Flow Rate FiO2 01/12/19 04:00 98.9 99 20 94/65 (75) 95 01/12/19 00:00 99.1 97 20 95/63 (74) 95 01/11/19 21:00 Room Air 01/11/19 20:00 99.4 98 18 94/62 (73) 94 01/11/19 16:00 98.1 74 18 96/61 (73) 01/11/19 12:00 98.9 100 18 84/55 (65) Intake and Output 01/11/19 01/12/19 18:59 06:59 Intake Total 240 ml 737.5 ml Balance 240 ml 737.5 ml Intake Oral 240 ml 600 ml IV Total 137.5 ml # Voids 3 3 # Bowel Movements 4 Laboratory Tests Test 01/12/19 05:15 White Blood Count 21.7 K/UL (4.8-10.8) H Red Blood Count 2.74 M/UL (4.70-6.10) L Hemoglobin 8.7 G/DL (14.2-18.0) L Hematocrit 27.3 % (42.0-52.0) L Mean Corpuscular Volume 99 FL (80-99) Mean Corpuscular Hemoglobin 31.7 PG (27.0-31.0) H Mean Corpuscular Hemoglobin Concent 32.0 G/DL (32.0-36.0) Red Cell Distribution Width 15.3 % (11.6-14.8) H Platelet Count 279 K/UL (150-450) Mean Platelet Volume 6.6 FL (6.5-10.1) Neutrophils (%) (Auto) % (45.0-75.0) Lymphocytes (%) (Auto) % (20.0-45.0) Monocytes (%) (Auto) % (1.0-10.0) Eosinophils (%) (Auto) % (0.0-3.0) Basophils (%) (Auto) % (0.0-2.0) Neutrophils % (Manual) Pending Lymphocytes % (Manual) Pending Platelet Estimate Pending Platelet Morphology Pending Sodium Level 148 MMOL/L (136-145) H Potassium Level 3.5 MMOL/L (3.5-5.1) Chloride Level 113 MMOL/L (98-107) H Carbon Dioxide Level 24 MMOL/L (21-32) Anion Gap 11 mmol/L (5-15) Blood Urea Nitrogen 21 mg/dL (7-18) H Creatinine 0.8 MG/DL (0.55-1.30) Estimat Glomerular Filtration Rate > 60 mL/min (>60) Glucose Level 108 MG/DL (74-106) H Uric Acid 3.3 MG/DL (2.6-7.2) Calcium Level 7.6 MG/DL (8.5-10.1) L Phosphorus Level 1.7 MG/DL (2.5-4.9) L Magnesium Level 1.9 MG/DL (1.8-2.4) Total Bilirubin 14.5 MG/DL (0.2-1.0) H Direct Bilirubin 12.7 MG/DL (0.0-0.3) H Aspartate Amino Transf (AST/SGOT) 120 U/L (15-37) H Alanine Aminotransferase (ALT/SGPT) 25 U/L (12-78) Alkaline Phosphatase 450 U/L (46-116) H Total Protein 4.5 G/DL (6.4-8.2) L Albumin 1.5 G/DL (3.4-5.0) L Globulin 3.0 g/dL Albumin/Globulin Ratio 0.5 (1.0-2.7) L Height (Feet): 5 Height (Inches): 5.00 Weight (Pounds): 195 General Appearance: WD/WN, no apparent distress, alert Cardiovascular: normal rate Respiratory/Chest: normal breath sounds, no respiratory distress Abdominal Exam: normal bowel sounds, non tender, soft Extremities: normal range of motion, non-tender Luisana Craft NP Jan 12, 2019 10:10
--- NOTE | 2019-01-12 10:51 | NUR ---
CASE MANAGEMENT:REVIEW 01/12/19 SI: ACUTE ENCEPHALOPATHY ALCOHOLIC LIVER DISEASE. S/P PARACENTESIS ~ 7.4L REMOVED 99.1 99 20 94/65 95% ON RA WBC+21.7 H/H-8.7/27.3 TBILI+14.5 DBILI+12.7 IS: IV ZOSYN Q8HRS RIFAXIMIN PO Q12 MIDODRINE PO TID LACTULOSE PO TID PROTONIX PO BID :MED/SURG STATUS 3 EAST PLAN: PLAN IS TO DISCHARGE TO [facility] ONCE WBC'S ARE CLOSER TO NORMAL RANGE CONSENT FOR US GUIDED PARACENTESIS WAS UNABLE TO FIND ANY ACCEPTING SNF D/T PATIENT'S HISTORY OF ALCOHOLISM PLAN IS TO DISCHARGE TODAY TO [facility] Addendum: 01/12/19 at 1056 by SHANIQUA ARECHIGA LVN LVN ASCITES FLUID SENT TO LAB FOR CULTURE
--- NOTE | 2019-01-12 11:00 | Infectious Diseases Prog Note ---
Assessment/Plan Assessment/Plan 58 yo male with PMHx of EtOH abuse, Depression and anxiety, SI who presented to the ED on 12/29/18 with N/V and abdominal pain. Leukocytosis and single high temp- S/P Prednisone 01/09/19 Likely due to gastritis from EtOH need -MRCP : Very limited exam, as described. Normal caliber bile ducts without definite filling defects to suggest choledocholithiasis Cholelithiasis. Gallbladder wall thickening, also described on prior sonogram. Most likely on the basis of hepatocellular derangement but the possibility of acute cholecystitis should also be considered. Ascites. Abnormal hepatic morphology, also previously described, suggestive of cirrhotic change -Abd US: Hepatomegaly. Coarsened hepatic echogenicity and surface nodularitysuggests cirrhosis. Ascites, not demonstrated previously. Cholelithiasis and gallbladder sludge, not evident previously. Gallbladder wall thickening and pericholecystic fluid, probably due to the hepatocellular derangements, but the possibility of acute cholecystitis should also be considered. Correlate with clinical findings, consider nuclear medicine hepatobiliary scan if clinically indicated. Negative for dilated bile ducts. Incidental finding small left renal cyst -CT abd/p: Chronic liver disease/cirrhosis with fatty infiltration, enlargement of the liver and stigmata of portal hypertension including ascites and splenomegaly, recanalized umbilical vein. Basilar atelectasis. Probable gallstones. Tiny bilateral renal hypodensities too small to characterize.Fecal impaction Cirrhosis EtOH abuse Hep A/B/C - Pend Depression and anxiety SI HIV (-) PLAN: - Continue Zosyn #6/10 for possible acute cholecystitis - 01/08/19 S/P Levofloxacin #6 and Flagyl #6 - 01/03/19 S/P Zosyn #5 - f/u paracentesis cx - Monitor CBC and Temps - Monitor clinically - Consider paracentesis for symptom relief We will continue to follow the patient during this hospitalization. Subjective Allergies: Coded Allergies: No Known Allergies (Verified , 10/22/06) Subjective ORI Afebrile Objective Vital Signs Last 24 Hour Vital Signs Date Time Temp Pulse Resp B/P (MAP) Pulse Ox O2 Delivery O2 Flow Rate FiO2 01/12/19 04:00 98.9 99 20 94/65 (75) 95 01/12/19 00:00 99.1 97 20 95/63 (74) 95 01/11/19 21:00 Room Air 01/11/19 20:00 99.4 98 18 94/62 (73) 94 01/11/19 16:00 98.1 74 18 96/61 (73) 01/11/19 12:00 98.9 100 18 84/55 (65) Height (Feet): 5 Height (Inches): 5.00 Weight (Pounds): 195 Objective Gen: Uncomfortable HEENT: NCAT, MMM, EOMI LUNGS: CTAB, No W CARDS: RRR, S1, S2, No M/R/G, ABD: Soft, NT, Distended, No R/G Microbiology Date/Time Source Procedure Growth Status 01/11/19 08:35 Ascities Fluid Gram Stain - Final Resulted 01/11/19 08:35 Ascities Fluid Body Fluid Culture Pending Resulted Laboratory Tests Test 01/12/19 05:15 White Blood Count 21.7 K/UL (4.8-10.8) H Red Blood Count 2.74 M/UL (4.70-6.10) L Hemoglobin 8.7 G/DL (14.2-18.0) L Hematocrit 27.3 % (42.0-52.0) L Mean Corpuscular Volume 99 FL (80-99) Mean Corpuscular Hemoglobin 31.7 PG (27.0-31.0) H Mean Corpuscular Hemoglobin Concent 32.0 G/DL (32.0-36.0) Red Cell Distribution Width 15.3 % (11.6-14.8) H Platelet Count 279 K/UL (150-450) Mean Platelet Volume 6.6 FL (6.5-10.1) Neutrophils (%) (Auto) % (45.0-75.0) Lymphocytes (%) (Auto) % (20.0-45.0) Monocytes (%) (Auto) % (1.0-10.0) Eosinophils (%) (Auto) % (0.0-3.0) Basophils (%) (Auto) % (0.0-2.0) Differential Total Cells Counted 100 Neutrophils % (Manual) 83 % (45-75) H Lymphocytes % (Manual) 3 % (20-45) L Monocytes % (Manual) 11 % (1-10) H Eosinophils % (Manual) 1 % (0-3) Basophils % (Manual) 0 % (0-2) Band Neutrophils 2 % (0-8) Platelet Estimate Adequate Platelet Morphology Normal Hypochromasia 2+ Anisocytosis 1+ Sodium Level 148 MMOL/L (136-145) H Potassium Level 3.5 MMOL/L (3.5-5.1) Chloride Level 113 MMOL/L (98-107) H Carbon Dioxide Level 24 MMOL/L (21-32) Anion Gap 11 mmol/L (5-15) Blood Urea Nitrogen 21 mg/dL (7-18) H Creatinine 0.8 MG/DL (0.55-1.30) Estimat Glomerular Filtration Rate > 60 mL/min (>60) Glucose Level 108 MG/DL (74-106) H Uric Acid 3.3 MG/DL (2.6-7.2) Calcium Level 7.6 MG/DL (8.5-10.1) L Phosphorus Level 1.7 MG/DL (2.5-4.9) L Magnesium Level 1.9 MG/DL (1.8-2.4) Total Bilirubin 14.5 MG/DL (0.2-1.0) H Direct Bilirubin 12.7 MG/DL (0.0-0.3) H Aspartate Amino Transf (AST/SGOT) 120 U/L (15-37) H Alanine Aminotransferase (ALT/SGPT) 25 U/L (12-78) Alkaline Phosphatase 450 U/L (46-116) H Total Protein 4.5 G/DL (6.4-8.2) L Albumin 1.5 G/DL (3.4-5.0) L Globulin 3.0 g/dL Albumin/Globulin Ratio 0.5 (1.0-2.7) L Current Medications Medications (Trade) Dose Ordered Sig/Clyde Route PRN Reason Start Time Stop Time Status Last Admin Dose Admin Acetaminophen (Tylenol) 650 mg Q4H PRN ORAL Mild Pain/Temp > 100.5 01/05/19 18:23 02/04/19 18:22 01/12/19 02:05 Chlorhexidine Gluconate (Sharmila-Hex 2%) 1 applic DAILY@1999 TOPIC 01/05/19 20:00 02/01/19 19:59 01/11/19 21:01 Dextrose (Dextrose 50%) 25 ml Q30M PRN IV Hypoglycemia 01/05/19 18:30 01/28/19 16:29 Dextrose (Dextrose 50%) 50 ml Q30M PRN IV Hypoglycemia 01/05/19 18:30 01/28/19 16:29 Lactulose (Cephulac) 30 gm THREE TIMES A DAY ORAL 01/06/19 09:00 02/01/19 08:59 01/11/19 17:26 Lorazepam (Ativan 2mg/ml 1ml) 0.5 mg Q4H PRN IV For Anxiety 01/05/19 18:24 01/12/19 18:23 01/09/19 00:02 Lorazepam (Ativan 2mg/ml 1ml) 2 mg Q1H PRN IV SEIZURES 01/05/19 18:24 01/12/19 18:23 Midodrine (Pro-Amatine) 10 mg THREE TIMES A DAY ORAL 01/07/19 13:00 02/01/19 12:59 01/12/19 08:59 Ondansetron HCl (Zofran) 4 mg Q6H PRN IVP Nausea & Vomiting 01/05/19 18:25 02/04/19 18:24 Pantoprazole (Protonix) 40 mg BID ORAL 01/06/19 09:00 01/28/19 17:59 01/12/19 08:59 Piperacillin Sod/ Tazobactam Sod 3.375 gm/Sodium Chloride 110 ml @ 27.5 mls/hr EVERY 8 HOURS IVPB 01/07/19 14:00 01/16/19 13:59 01/12/19 05:36 Rifaximin (Xifaxan) 550 mg EVERY 12 HOURS ORAL 01/09/19 16:00 01/16/19 15:59 01/12/19 08:59 Devon Kingsley MD Jan 12, 2019 11:00
--- NOTE | 2019-01-12 11:10 | NUR ---
*-* INSURANCE *-* UPDATED CLINICALS & REVIEWS HAVE BEEN FAXED TO [facility]: [place] Iglesias P- [phone] F- [phone].....REVIEW/CLINICAL
--- NOTE | 2019-01-12 11:52 | General Progress Note ---
Assessment/Plan Problem List: (1) Abdominal pain ICD Codes: R10.9 - Unspecified abdominal pain SNOMED: 66023922 (2) Anemia ICD Codes: D64.9 - Anemia, unspecified SNOMED: 769096277 (3) Alcoholic liver disease ICD Codes: K70.9 - Alcoholic liver disease, unspecified SNOMED: 24062504 (4) Acute alcoholic gastritis ICD Codes: K29.20 - Alcoholic gastritis without bleeding SNOMED: 4562915 Qualifiers: Qualified Codes: K29.20 - Alcoholic gastritis without bleeding Status: unchanged Assessment/Plan: detox gi f/u cbc bmp dc plan snf if clear Subjective Constitutional: Reports: weakness Allergies: Coded Allergies: No Known Allergies (Verified , 10/22/06) All Systems: reviewed and negative except above Subjective sleepy calm Objective Last 24 Hour Vital Signs Date Time Temp Pulse Resp B/P (MAP) Pulse Ox O2 Delivery O2 Flow Rate FiO2 01/12/19 04:00 98.9 99 20 94/65 (75) 95 01/12/19 00:00 99.1 97 20 95/63 (74) 95 01/11/19 21:00 Room Air 01/11/19 20:00 99.4 98 18 94/62 (73) 94 01/11/19 16:00 98.1 74 18 96/61 (73) 01/11/19 12:00 98.9 100 18 84/55 (65) Intake and Output 01/11/19 01/12/19 18:59 06:59 Intake Total 240 ml 737.5 ml Balance 240 ml 737.5 ml Intake Oral 240 ml 600 ml IV Total 137.5 ml # Voids 3 3 # Bowel Movements 4 Laboratory Tests 01/12/19 05:15: White Blood Count 21.7H, Red Blood Count 2.74L, Hemoglobin 8.7L, Hematocrit 27.3L, Mean Corpuscular Volume 99, Mean Corpuscular Hemoglobin 31.7H, Mean Corpuscular Hemoglobin Concent 32.0, Red Cell Distribution Width 15.3H, Platelet Count 279, Mean Platelet Volume 6.6, Neutrophils (%) (Auto) , Lymphocytes (%) (Auto) , Monocytes (%) (Auto) , Eosinophils (%) (Auto) , Basophils (%) (Auto) , Differential Total Cells Counted 100, Neutrophils % ( Manual) 83H, Lymphocytes % (Manual) 3L, Monocytes % (Manual) 11H, Eosinophils % (Manual) 1, Basophils % (Manual) 0, Band Neutrophils 2, Platelet Estimate Adequate, Platelet Morphology Normal, Hypochromasia 2+, Anisocytosis 1+, Sodium Level 148H, Potassium Level 3.5, Chloride Level 113H, Carbon Dioxide Level 24, Anion Gap 11, Blood Urea Nitrogen 21H, Creatinine 0.8, Estimat Glomerular Filtration Rate > 60, Glucose Level 108H, Uric Acid 3.3, Calcium Level 7.6L, Phosphorus Level 1.7L, Magnesium Level 1.9, Total Bilirubin 14.5H, Direct Bilirubin 12.7H, Aspartate Amino Transf (AST/SGOT) 120H, Alanine Aminotransferase (ALT/SGPT) 25, Alkaline Phosphatase 450H, Total Protein 4.5L, Albumin 1.5L, Globulin 3.0, Albumin/Globulin Ratio 0.5L Height (Feet): 5 Height (Inches): 5.00 Weight (Pounds): 195 General Appearance: lethargic EENT: normal ENT inspection Neck: normal alignment Cardiovascular: normal peripheral pulses, normal rate, regular rhythm Respiratory/Chest: chest wall non-tender, lungs clear, normal breath sounds Abdomen: normal bowel sounds, non tender, soft, distended Extremities: normal inspection Edema: no edema noted Arm (L), no edema noted Arm (R), no edema noted Leg (L), no edema noted Leg (R), no edema noted Pedal (L), no edema noted Pedal (R), no edema noted Generalized Neurologic: motor weakness Skin: normal pigmentation, warm/dry Corwin Martinez DO Jan 12, 2019 11:52
[2019-01-12 12:00] VITALS: BP 110/62
--- NOTE | 2019-01-12 12:54 | Pulmonology Progress Note ---
Assessment/Plan Problems: (1) End stage liver disease (2) Acute upper GI bleed (3) Acute alcoholic intoxication (4) Coagulopathy (5) Psychosis (6) Acute encephalopathy (7) Alcoholic liver disease Assessment/Plan s/p paracentesis, 7 liters removed wbc decreasing continue abx symptomatic treatment lactulose f/u Ammonia level. Subjective ROS Limited/Unobtainable: No Constitutional: Reports: no symptoms HEENT: Repors: no symptoms Respiratory: Reports: no symptoms Allergies: Coded Allergies: No Known Allergies (Verified , 10/22/06) Objective Last 24 Hour Vital Signs Date Time Temp Pulse Resp B/P (MAP) Pulse Ox O2 Delivery O2 Flow Rate FiO2 01/12/19 04:00 98.9 99 20 94/65 (75) 95 01/12/19 00:00 99.1 97 20 95/63 (74) 95 01/11/19 21:00 Room Air 01/11/19 20:00 99.4 98 18 94/62 (73) 94 01/11/19 16:00 98.1 74 18 96/61 (73) Intake and Output 01/11/19 01/12/19 18:59 06:59 Intake Total 240 ml 737.5 ml Balance 240 ml 737.5 ml Intake Oral 240 ml 600 ml IV Total 137.5 ml # Voids 3 3 # Bowel Movements 4 General Appearance: cachetic HEENT: normocephalic, atraumatic Respiratory/Chest: chest wall non-tender, normal breath sounds Cardiovascular: normal peripheral pulses, regular rhythm Abdomen: normal bowel sounds, no organomegaly Genitourinary: normal external genitalia Skin: no rash Microbiology Date/Time Source Procedure Growth Status 01/11/19 08:35 Ascities Fluid Gram Stain - Final Resulted 01/11/19 08:35 Ascities Fluid Body Fluid Culture - Preliminary NO GROWTH Resulted Laboratory Tests 01/12/19 05:15: White Blood Count 21.7H, Red Blood Count 2.74L, Hemoglobin 8.7L, Hematocrit 27.3L, Mean Corpuscular Volume 99, Mean Corpuscular Hemoglobin 31.7H, Mean Corpuscular Hemoglobin Concent 32.0, Red Cell Distribution Width 15.3H, Platelet Count 279, Mean Platelet Volume 6.6, Neutrophils (%) (Auto) , Lymphocytes (%) (Auto) , Monocytes (%) (Auto) , Eosinophils (%) (Auto) , Basophils (%) (Auto) , Differential Total Cells Counted 100, Neutrophils % ( Manual) 83H, Lymphocytes % (Manual) 3L, Monocytes % (Manual) 11H, Eosinophils % (Manual) 1, Basophils % (Manual) 0, Band Neutrophils 2, Platelet Estimate Adequate, Platelet Morphology Normal, Hypochromasia 2+, Anisocytosis 1+, Sodium Level 148H, Potassium Level 3.5, Chloride Level 113H, Carbon Dioxide Level 24, Anion Gap 11, Blood Urea Nitrogen 21H, Creatinine 0.8, Estimat Glomerular Filtration Rate > 60, Glucose Level 108H, Uric Acid 3.3, Calcium Level 7.6L, Phosphorus Level 1.7L, Magnesium Level 1.9, Total Bilirubin 14.5H, Direct Bilirubin 12.7H, Aspartate Amino Transf (AST/SGOT) 120H, Alanine Aminotransferase (ALT/SGPT) 25, Alkaline Phosphatase 450H, Total Protein 4.5L, Albumin 1.5L, Globulin 3.0, Albumin/Globulin Ratio 0.5L Current Medications Medications (Trade) Dose Ordered Sig/Clyde Route PRN Reason Start Time Stop Time Status Last Admin Dose Admin Acetaminophen (Tylenol) 650 mg Q4H PRN ORAL Mild Pain/Temp > 100.5 01/05/19 18:23 02/04/19 18:22 01/12/19 02:05 Chlorhexidine Gluconate (Sharmila-Hex 2%) 1 applic DAILY@1999 TOPIC 01/05/19 20:00 02/01/19 19:59 01/11/19 21:01 Dextrose (Dextrose 50%) 25 ml Q30M PRN IV Hypoglycemia 01/05/19 18:30 01/28/19 16:29 Dextrose (Dextrose 50%) 50 ml Q30M PRN IV Hypoglycemia 01/05/19 18:30 01/28/19 16:29 Lactulose (Cephulac) 30 gm THREE TIMES A DAY ORAL 01/06/19 09:00 02/01/19 08:59 01/11/19 17:26 Lorazepam (Ativan 2mg/ml 1ml) 0.5 mg Q4H PRN IV For Anxiety 01/05/19 18:24 01/12/19 18:23 01/09/19 00:02 Lorazepam (Ativan 2mg/ml 1ml) 2 mg Q1H PRN IV SEIZURES 01/05/19 18:24 01/12/19 18:23 Midodrine (Pro-Amatine) 10 mg THREE TIMES A DAY ORAL 01/07/19 13:00 02/01/19 12:59 01/12/19 08:59 Ondansetron HCl (Zofran) 4 mg Q6H PRN IVP Nausea & Vomiting 01/05/19 18:25 02/04/19 18:24 Pantoprazole (Protonix) 40 mg BID ORAL 01/06/19 09:00 01/28/19 17:59 01/12/19 08:59 Piperacillin Sod/ Tazobactam Sod 3.375 gm/Sodium Chloride 110 ml @ 27.5 mls/hr EVERY 8 HOURS IVPB 01/07/19 14:00 01/16/19 13:59 01/12/19 05:36 Rifaximin (Xifaxan) 550 mg EVERY 12 HOURS ORAL 01/09/19 16:00 01/16/19 15:59 01/12/19 08:59 Marion Schneider MD Jan 12, 2019 12:54
--- NOTE | 2019-01-12 15:19 | Nephrology Progress Note ---
Assessment/Plan Problem List: (1) Alcoholic liver disease (2) Anemia (3) Electrolyte disorder (4) Jaundice Assessment Acute Alcoholic Gastritis / Encephalopathy - Intoxication Alcoholic Hepatitis Anemia Hypokalemia Psych disease Plan labs noted K Phos IV PO steroids on hold by GI has PICC now K and Mag and Phos supplement as needed Monitor lytes / Lfts per orders Subjective ROS Limited/Unobtainable: No Constitutional: Reports: malaise, weakness Objective Objective Last 24 Hour Vital Signs Date Time Temp Pulse Resp B/P (MAP) Pulse Ox O2 Delivery O2 Flow Rate FiO2 01/12/19 09:00 Room Air 01/12/19 08:00 97.6 68 16 115/72 (86) 97 01/12/19 04:00 98.9 99 20 94/65 (75) 95 01/12/19 00:00 99.1 97 20 95/63 (74) 95 01/11/19 21:00 Room Air 01/11/19 20:00 99.4 98 18 94/62 (73) 94 01/11/19 16:00 98.1 74 18 96/61 (73) Intake and Output 01/11/19 01/12/19 18:59 06:59 Intake Total 240 ml 737.5 ml Balance 240 ml 737.5 ml Intake Oral 240 ml 600 ml IV Total 137.5 ml # Voids 3 3 # Bowel Movements 4 Laboratory Tests 01/12/19 05:15: White Blood Count 21.7H, Red Blood Count 2.74L, Hemoglobin 8.7L, Hematocrit 27.3L, Mean Corpuscular Volume 99, Mean Corpuscular Hemoglobin 31.7H, Mean Corpuscular Hemoglobin Concent 32.0, Red Cell Distribution Width 15.3H, Platelet Count 279, Mean Platelet Volume 6.6, Neutrophils (%) (Auto) , Lymphocytes (%) (Auto) , Monocytes (%) (Auto) , Eosinophils (%) (Auto) , Basophils (%) (Auto) , Differential Total Cells Counted 100, Neutrophils % ( Manual) 83H, Lymphocytes % (Manual) 3L, Monocytes % (Manual) 11H, Eosinophils % (Manual) 1, Basophils % (Manual) 0, Band Neutrophils 2, Platelet Estimate Adequate, Platelet Morphology Normal, Hypochromasia 2+, Anisocytosis 1+, Sodium Level 148H, Potassium Level 3.5, Chloride Level 113H, Carbon Dioxide Level 24, Anion Gap 11, Blood Urea Nitrogen 21H, Creatinine 0.8, Estimat Glomerular Filtration Rate > 60, Glucose Level 108H, Uric Acid 3.3, Calcium Level 7.6L, Phosphorus Level 1.7L, Magnesium Level 1.9, Total Bilirubin 14.5H, Direct Bilirubin 12.7H, Aspartate Amino Transf (AST/SGOT) 120H, Alanine Aminotransferase (ALT/SGPT) 25, Alkaline Phosphatase 450H, Total Protein 4.5L, Albumin 1.5L, Globulin 3.0, Albumin/Globulin Ratio 0.5L Height (Feet): 5 Height (Inches): 5.00 Weight (Pounds): 195 General Appearance: no apparent distress EENT: other - jaundiced Cardiovascular: tachycardia Respiratory/Chest: decreased breath sounds Abdomen: distended Objective no change Leonard Bautista MD Jan 12, 2019 15:19
--- NOTE | 2019-01-12 16:27 | Cardiac Electrophysiology PN ---
Assessment/Plan Assessment/Plan 1. Hypotension 90s and sinus tach 100s, on Midodrine 10 tid 2. Atypical Chest pain . EKG nonspecific ST-T wave abnormality. No NM. Echo EF 55% 3. Persistent hypokalemia. Corrected. 4. Leukocytosis. On Abx and steroid 5. ETOH Cirrhosis with Bilirubin 14. FU GI. S/P 7 liters of paracentesis 01/11/19 6. [facility] RN Subjective Subjective Had 7 liters of paracentesis yesterday. Awaiting Placement now Objective Last 24 Hour Vital Signs Date Time Temp Pulse Resp B/P (MAP) Pulse Ox O2 Delivery O2 Flow Rate FiO2 01/12/19 09:00 Room Air 01/12/19 08:00 97.6 68 16 115/72 (86) 97 01/12/19 04:00 98.9 99 20 94/65 (75) 95 01/12/19 00:00 99.1 97 20 95/63 (74) 95 01/11/19 21:00 Room Air 01/11/19 20:00 99.4 98 18 94/62 (73) 94 Intake and Output 01/11/19 01/12/19 18:59 06:59 Intake Total 240 ml 737.5 ml Balance 240 ml 737.5 ml Intake Oral 240 ml 600 ml IV Total 137.5 ml # Voids 3 3 # Bowel Movements 4 Laboratory Tests Test 01/12/19 05:15 White Blood Count 21.7 K/UL (4.8-10.8) H Red Blood Count 2.74 M/UL (4.70-6.10) L Hemoglobin 8.7 G/DL (14.2-18.0) L Hematocrit 27.3 % (42.0-52.0) L Mean Corpuscular Volume 99 FL (80-99) Mean Corpuscular Hemoglobin 31.7 PG (27.0-31.0) H Mean Corpuscular Hemoglobin Concent 32.0 G/DL (32.0-36.0) Red Cell Distribution Width 15.3 % (11.6-14.8) H Platelet Count 279 K/UL (150-450) Mean Platelet Volume 6.6 FL (6.5-10.1) Neutrophils (%) (Auto) % (45.0-75.0) Lymphocytes (%) (Auto) % (20.0-45.0) Monocytes (%) (Auto) % (1.0-10.0) Eosinophils (%) (Auto) % (0.0-3.0) Basophils (%) (Auto) % (0.0-2.0) Differential Total Cells Counted 100 Neutrophils % (Manual) 83 % (45-75) H Lymphocytes % (Manual) 3 % (20-45) L Monocytes % (Manual) 11 % (1-10) H Eosinophils % (Manual) 1 % (0-3) Basophils % (Manual) 0 % (0-2) Band Neutrophils 2 % (0-8) Platelet Estimate Adequate Platelet Morphology Normal Hypochromasia 2+ Anisocytosis 1+ Sodium Level 148 MMOL/L (136-145) H Potassium Level 3.5 MMOL/L (3.5-5.1) Chloride Level 113 MMOL/L (98-107) H Carbon Dioxide Level 24 MMOL/L (21-32) Anion Gap 11 mmol/L (5-15) Blood Urea Nitrogen 21 mg/dL (7-18) H Creatinine 0.8 MG/DL (0.55-1.30) Estimat Glomerular Filtration Rate > 60 mL/min (>60) Glucose Level 108 MG/DL (74-106) H Uric Acid 3.3 MG/DL (2.6-7.2) Calcium Level 7.6 MG/DL (8.5-10.1) L Phosphorus Level 1.7 MG/DL (2.5-4.9) L Magnesium Level 1.9 MG/DL (1.8-2.4) Total Bilirubin 14.5 MG/DL (0.2-1.0) H Direct Bilirubin 12.7 MG/DL (0.0-0.3) H Aspartate Amino Transf (AST/SGOT) 120 U/L (15-37) H Alanine Aminotransferase (ALT/SGPT) 25 U/L (12-78) Alkaline Phosphatase 450 U/L (46-116) H Total Protein 4.5 G/DL (6.4-8.2) L Albumin 1.5 G/DL (3.4-5.0) L Globulin 3.0 g/dL Albumin/Globulin Ratio 0.5 (1.0-2.7) L Microbiology Date/Time Source Procedure Growth Status 01/11/19 08:35 Ascities Fluid Gram Stain - Final Resulted 01/11/19 08:35 Ascities Fluid Body Fluid Culture - Preliminary NO GROWTH Resulted Objective HEENT: Jaundiced sclera Cardiovascular: normal S1 and S2 and no murmur Respiratory/Chest: normal breath sounds, no respiratory distress Abdominal Exam: normal bowel sounds, non tender, soft with ascites Extremities: normal range of motion, non-tender. 1 plus edema Franck Saeed MD Jan 12, 2019 16:27
[2019-01-12] MEDS ORDERED: Potassium Phosphate 30 MM in NS 275 ML IV ONE (17:00)
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
[2019-01-12 20:00] VITALS: BP 97/60
--- NOTE | 2019-01-12 20:06 | NUR ---
HAND-OFF: Report given to Myla MCCRAY.
[2019-01-12] MEDS: Dyna-Hex 2% Top Sol 2oz TOPIC SCH (21:02)
[2019-01-13] VITALS: BP 100/64
[2019-01-13 04:00] VITALS: BP 110/72
[2019-01-13] MEDS: Piperacillin/Tazobactam 3.375 GM in NS 110 ML IVPB SCH ×3 (05:45→22:10)
[2019-01-13 06:35] LABS: HEMOGLOBIN 9.8 G/DL (14.2-18.0); MEAN CORPUSCULAR VOLUME 100 FL (80-99); PLATELET COUNT 295 K/UL (150-450); RED CELL DISTRIBUTION WIDTH 15.6 % (11.6-14.8)
[2019-01-13 07:22] LABS: ALANINE AMINOTRANSFERASE 23 U/L (12-78); ALBUMIN 1.4 G/DL (3.4-5.0); ALBUMIN/GLOBULIN RATIO 0.4 (1.0-2.7); ALKALINE PHOSPHATASE 498 U/L (46-116); ANION GAP 12 mmol/L (5-15); ASPARTATE AMINO TRANSFERASE 119 U/L (15-37); BILIRUBIN,TOTAL 16.1 MG/DL (0.2-1.0); BLOOD UREA NITROGEN 22 mg/dL (7-18); CALCIUM 7.5 MG/DL (8.5-10.1); CARBON DIOXIDE 23 MMOL/L (21-32); CHLORIDE 108 MMOL/L (98-107); CREATININE 1.2 MG/DL (0.55-1.30); POTASSIUM 3.4 MMOL/L (3.5-5.1); SODIUM 143 MMOL/L (136-145)
[2019-01-13 07:25] LABS: BILIRUBIN,DIRECT 13.8 MG/DL (0.0-0.3)
--- NOTE | 2019-01-13 07:30 | NUR ---
NURSE NOTES: Received report from SHAZIA Lanza. Rounding done with outgoing nurse. Patient is a/o x 3 lying on the bed. JOSSIE PICC line is in placed. Zosyn is running at this time. Denies any pain at this time. Bed in lowest position, call light within reach. Will continue to monitor.
--- NOTE | 2019-01-13 07:30 | NUR ---
HAND-OFF: Report given to syd SOTO R.N.
[2019-01-13 07:33] LABS: PHOSPHORUS 2.3 MG/DL (2.5-4.9)
[2019-01-13 08:00] VITALS: BP 122/80
--- NOTE | 2019-01-13 08:08 | NUR ---
NURSE NOTES:Called and Spoke to TYLER [phone](office insurance healthcare representative of DR. Devon latham ). Left message for DR. Devon Latham patient WBC 26.0 H endorsed to Yessy SOTO R.N. to follow up.
--- NOTE | 2019-01-13 09:12 | NUR ---
NURSE NOTES: Dr. Kingsley called back. MD is aware that pt's WBC is 26.0 and no new order.
[2019-01-13] MEDS: Lactulose 20gm/30ml UDC ORAL SCH ×4 (09:14→21:18)
[2019-01-13] MEDS ORDERED: Potassium Phosphate 30 MM in NS 275 ML IV SCH (10:00)
[2019-01-13] MEDS: Midodrine 10mg tab ORAL SCH ×3 (10:16→18:45)
--- NOTE | 2019-01-13 10:26 | Cardiac Electrophysiology PN ---
Assessment/Plan Assessment/Plan 1. Hypotension and sinus tach, better on Midodrine 10 tid 2. Atypical Chest pain . EKG nonspecific ST-T wave abnormality. No IN. Echo EF 55% 3. Persistent hypokalemia. Corrected. 4. Leukocytosis. On Abx and steroid 5. ETOH Cirrhosis with Bilirubin 14. FU GI. S/P 7 liters of paracentesis 01/11/19 6. [facility] RN Subjective Subjective Had 7.4 liters of paracentesis 2days ago. Very weak. RN at bedside. Awaiting Placement now Objective Last 24 Hour Vital Signs Date Time Temp Pulse Resp B/P (MAP) Pulse Ox O2 Delivery O2 Flow Rate FiO2 01/13/19 08:00 98.0 87 18 122/80 (94) 99 01/13/19 04:00 97.6 99 20 110/72 (85) 97 01/13/19 00:00 97.4 101 20 100/64 (76) 97 01/12/19 21:00 Room Air 01/12/19 20:00 98.3 103 16 97/60 (72) 93 01/12/19 12:00 97.2 75 16 110/62 (78) Intake and Output 01/12/19 01/13/19 19:00 07:00 Intake Total 110.0 ml 697.5 ml Balance 110.0 ml 697.5 ml Intake Oral 560 ml IV Total 110.0 ml 137.5 ml # Voids 5 # Bowel Movements 1 2 Laboratory Tests Test 01/13/19 05:15 White Blood Count 26.0 K/UL (4.8-10.8) *H Red Blood Count 3.10 M/UL (4.70-6.10) L Hemoglobin 9.8 G/DL (14.2-18.0) L Hematocrit 31.0 % (42.0-52.0) L Mean Corpuscular Volume 100 FL (80-99) H Mean Corpuscular Hemoglobin 31.6 PG (27.0-31.0) H Mean Corpuscular Hemoglobin Concent 31.7 G/DL (32.0-36.0) L Red Cell Distribution Width 15.6 % (11.6-14.8) H Platelet Count 295 K/UL (150-450) Mean Platelet Volume 6.8 FL (6.5-10.1) Neutrophils (%) (Auto) % (45.0-75.0) Lymphocytes (%) (Auto) % (20.0-45.0) Monocytes (%) (Auto) % (1.0-10.0) Eosinophils (%) (Auto) % (0.0-3.0) Basophils (%) (Auto) % (0.0-2.0) Differential Total Cells Counted 100 Neutrophils % (Manual) 90 % (45-75) H Lymphocytes % (Manual) 3 % (20-45) L Monocytes % (Manual) 5 % (1-10) Eosinophils % (Manual) 2 % (0-3) Basophils % (Manual) 0 % (0-2) Band Neutrophils 0 % (0-8) Platelet Estimate Adequate Platelet Morphology Normal Hypochromasia 1+ Anisocytosis 1+ Sodium Level 143 MMOL/L (136-145) Potassium Level 3.4 MMOL/L (3.5-5.1) L Chloride Level 108 MMOL/L (98-107) H Carbon Dioxide Level 23 MMOL/L (21-32) Anion Gap 12 mmol/L (5-15) Blood Urea Nitrogen 22 mg/dL (7-18) H Creatinine 1.2 MG/DL (0.55-1.30) Estimat Glomerular Filtration Rate > 60 mL/min (>60) Glucose Level 120 MG/DL (74-106) H Calcium Level 7.5 MG/DL (8.5-10.1) L Phosphorus Level 2.3 MG/DL (2.5-4.9) L Magnesium Level 1.8 MG/DL (1.8-2.4) Total Bilirubin 16.1 MG/DL (0.2-1.0) H Direct Bilirubin 13.8 MG/DL (0.0-0.3) H Gamma Glutamyl Transpeptidase 969 U/L (5-85) H Aspartate Amino Transf (AST/SGOT) 119 U/L (15-37) H Alanine Aminotransferase (ALT/SGPT) 23 U/L (12-78) Alkaline Phosphatase 498 U/L (46-116) H Ammonia 46 umol/L (11-32) H Total Protein 4.6 G/DL (6.4-8.2) L Albumin 1.4 G/DL (3.4-5.0) L Globulin 3.2 g/dL Albumin/Globulin Ratio 0.4 (1.0-2.7) L Microbiology Date/Time Source Procedure Growth Status 01/11/19 08:35 Ascities Fluid Gram Stain - Final Resulted 01/11/19 08:35 Ascities Fluid Body Fluid Culture - Preliminary NO GROWTH AFTER 24 HOURS Resulted Objective HEENT: Jaundiced sclera Cardiovascular: normal S1 and S2 and no murmur Respiratory/Chest: normal breath sounds, no respiratory distress Abdominal Exam: normal bowel sounds, non tender, soft with ascites Extremities: normal range of motion, non-tender. 1 plus edema Franck Saeed MD Jan 13, 2019 10:26
--- NOTE | 2019-01-13 10:45 | Infectious Diseases Prog Note ---
Assessment/Plan Assessment/Plan 58 yo male with PMHx of EtOH abuse, Depression and anxiety, SI who presented to the ED on 12/29/18 with N/V and abdominal pain. Leukocytosis and single high temp- S/P Prednisone 01/09/19 Likely due to gastritis from EtOH need -MRCP : Very limited exam, as described. Normal caliber bile ducts without definite filling defects to suggest choledocholithiasis Cholelithiasis. Gallbladder wall thickening, also described on prior sonogram. Most likely on the basis of hepatocellular derangement but the possibility of acute cholecystitis should also be considered. Ascites. Abnormal hepatic morphology, also previously described, suggestive of cirrhotic change -Abd US: Hepatomegaly. Coarsened hepatic echogenicity and surface nodularitysuggests cirrhosis. Ascites, not demonstrated previously. Cholelithiasis and gallbladder sludge, not evident previously. Gallbladder wall thickening and pericholecystic fluid, probably due to the hepatocellular derangements, but the possibility of acute cholecystitis should also be considered. Correlate with clinical findings, consider nuclear medicine hepatobiliary scan if clinically indicated. Negative for dilated bile ducts. Incidental finding small left renal cyst -CT abd/p: Chronic liver disease/cirrhosis with fatty infiltration, enlargement of the liver and stigmata of portal hypertension including ascites and splenomegaly, recanalized umbilical vein. Basilar atelectasis. Probable gallstones. Tiny bilateral renal hypodensities too small to characterize.Fecal impaction Cirrhosis EtOH abuse Hep A/B/C - Neg Paracentesis Cx 01/11/19 - NGTD Depression and anxiety SI HIV (-) PLAN: - Continue Zosyn #7/10 for possible acute cholecystitis - 01/08/19 S/P Levofloxacin #6 and Flagyl #6 - 01/03/19 S/P Zosyn #5 - f/u paracentesis cx - Monitor CBC and Temps - Monitor clinically - Consider paracentesis for symptom relief We will continue to follow the patient during this hospitalization. Subjective Allergies: Coded Allergies: No Known Allergies (Verified , 10/22/06) Subjective ORI Afebrile Leukoctyosis 26 Objective Vital Signs Last 24 Hour Vital Signs Date Time Temp Pulse Resp B/P (MAP) Pulse Ox O2 Delivery O2 Flow Rate FiO2 01/13/19 08:00 98.0 87 18 122/80 (94) 99 01/13/19 04:00 97.6 99 20 110/72 (85) 97 01/13/19 00:00 97.4 101 20 100/64 (76) 97 01/12/19 21:00 Room Air 01/12/19 20:00 98.3 103 16 97/60 (72) 93 01/12/19 12:00 97.2 75 16 110/62 (78) Height (Feet): 5 Height (Inches): 5.00 Weight (Pounds): 195 Objective Gen: Worried and anxious HEENT: NCAT, MMM, EOMI LUNGS: CTAB, No W CARDS: RRR, S1, S2, No M/R/G, ABD: Soft, NT, Distended, No R/G Microbiology Date/Time Source Procedure Growth Status 01/11/19 08:35 Ascities Fluid Gram Stain - Final Resulted 01/11/19 08:35 Ascities Fluid Body Fluid Culture - Preliminary NO GROWTH AFTER 24 HOURS Resulted Laboratory Tests Test 01/13/19 05:15 White Blood Count 26.0 K/UL (4.8-10.8) *H Red Blood Count 3.10 M/UL (4.70-6.10) L Hemoglobin 9.8 G/DL (14.2-18.0) L Hematocrit 31.0 % (42.0-52.0) L Mean Corpuscular Volume 100 FL (80-99) H Mean Corpuscular Hemoglobin 31.6 PG (27.0-31.0) H Mean Corpuscular Hemoglobin Concent 31.7 G/DL (32.0-36.0) L Red Cell Distribution Width 15.6 % (11.6-14.8) H Platelet Count 295 K/UL (150-450) Mean Platelet Volume 6.8 FL (6.5-10.1) Neutrophils (%) (Auto) % (45.0-75.0) Lymphocytes (%) (Auto) % (20.0-45.0) Monocytes (%) (Auto) % (1.0-10.0) Eosinophils (%) (Auto) % (0.0-3.0) Basophils (%) (Auto) % (0.0-2.0) Differential Total Cells Counted 100 Neutrophils % (Manual) 90 % (45-75) H Lymphocytes % (Manual) 3 % (20-45) L Monocytes % (Manual) 5 % (1-10) Eosinophils % (Manual) 2 % (0-3) Basophils % (Manual) 0 % (0-2) Band Neutrophils 0 % (0-8) Platelet Estimate Adequate Platelet Morphology Normal Hypochromasia 1+ Anisocytosis 1+ Sodium Level 143 MMOL/L (136-145) Potassium Level 3.4 MMOL/L (3.5-5.1) L Chloride Level 108 MMOL/L (98-107) H Carbon Dioxide Level 23 MMOL/L (21-32) Anion Gap 12 mmol/L (5-15) Blood Urea Nitrogen 22 mg/dL (7-18) H Creatinine 1.2 MG/DL (0.55-1.30) Estimat Glomerular Filtration Rate > 60 mL/min (>60) Glucose Level 120 MG/DL (74-106) H Calcium Level 7.5 MG/DL (8.5-10.1) L Phosphorus Level 2.3 MG/DL (2.5-4.9) L Magnesium Level 1.8 MG/DL (1.8-2.4) Total Bilirubin 16.1 MG/DL (0.2-1.0) H Direct Bilirubin 13.8 MG/DL (0.0-0.3) H Gamma Glutamyl Transpeptidase 969 U/L (5-85) H Aspartate Amino Transf (AST/SGOT) 119 U/L (15-37) H Alanine Aminotransferase (ALT/SGPT) 23 U/L (12-78) Alkaline Phosphatase 498 U/L (46-116) H Ammonia 46 umol/L (11-32) H Total Protein 4.6 G/DL (6.4-8.2) L Albumin 1.4 G/DL (3.4-5.0) L Globulin 3.2 g/dL Albumin/Globulin Ratio 0.4 (1.0-2.7) L Current Medications Medications (Trade) Dose Ordered Sig/Clyde Route PRN Reason Start Time Stop Time Status Last Admin Dose Admin Acetaminophen (Tylenol) 650 mg Q4H PRN ORAL Mild Pain/Temp > 100.5 01/05/19 18:23 02/04/19 18:22 01/12/19 02:05 Chlorhexidine Gluconate (Sharmila-Hex 2%) 1 applic DAILY@1999 TOPIC 01/05/19 20:00 7/10/19 19:59 01/12/19 21:02 Dextrose (Dextrose 50%) 25 ml Q30M PRN IV Hypoglycemia 01/05/19 18:30 01/28/19 16:29 Dextrose (Dextrose 50%) 50 ml Q30M PRN IV Hypoglycemia 01/05/19 18:30 01/28/19 16:29 Lactulose (Cephulac) 30 gm QID ORAL 01/13/19 13:00 02/01/19 08:59 Midodrine (Pro-Amatine) 10 mg THREE TIMES A DAY ORAL 01/13/19 10:11 02/01/19 12:59 01/13/19 10:16 Ondansetron HCl (Zofran) 4 mg Q6H PRN IVP Nausea & Vomiting 01/05/19 18:25 02/04/19 18:24 Pantoprazole (Protonix) 40 mg BID ORAL 01/06/19 09:00 01/28/19 17:59 01/13/19 09:14 Piperacillin Sod/ Tazobactam Sod 3.375 gm/Sodium Chloride 110 ml @ 27.5 mls/hr EVERY 8 HOURS IVPB 01/07/19 14:00 01/16/19 13:59 01/13/19 05:45 Potassium Phosphate 30 mm/ Sodium Chloride 285 ml @ 47.5 mls/hr ONCE IV 01/13/19 10:00 01/13/19 12:00 01/13/19 10:16 Rifaximin (Xifaxan) 550 mg EVERY 12 HOURS ORAL 01/09/19 16:00 01/16/19 15:59 01/13/19 09:14 Devon Kingsley MD Jan 13, 2019 10:45
--- NOTE | 2019-01-13 11:15 | NUR ---
CASE MANAGEMENT:REVIEW 01/13/19 SI: ACUTE ENCEPHALOPATHY ALCOHOLIC LIVER DISEASE. S/P PARACENTESIS ~ 7.4L REMOVED 98.0 87 18 122/80 99% ON RA WBC+26.0 H/H-9.8/31.0 TBILI+16.1 DBILI+13.8 AMMONIA+46 IS: IV K-PHOS X1 IV ZOSYN Q8HRS RIFAXIMIN PO Q12 MIDODRINE PO TID LACTULOSE PO TID PROTONIX PO BID :MED/SURG STATUS 3 E[place] PLAN: PLAN IS TO DISCHARGE TO [facility] ONCE WBC'S ARE CLOSER TO NORMAL RANGE ASCITES FLUID CULTURE PENDING WBC'S RISING~ MD NOT COMFORTABLE DISCHARGING
--- NOTE | 2019-01-13 11:46 | NUR ---
*-* INSURANCE *-* UPDATED CLINICALS & REVIEWS HAVE BEEN FAXED TO [facility]: DOMINGUEZ Iglesias P- [phone] F- [phone].....REVIEW/CLINICAL
[2019-01-13 12:00] VITALS: BP 118/78
--- NOTE | 2019-01-13 12:39 | Pulmonology Progress Note ---
Assessment/Plan Problems: (1) End stage liver disease (2) Acute upper GI bleed (3) Acute alcoholic intoxication (4) Coagulopathy (5) Psychosis (6) Acute encephalopathy (7) Alcoholic liver disease Assessment/Plan s/p paracentesis, 7 liters removed wbc decreasing continue abx symptomatic treatment lactulose f/u Ammonia level. Subjective ROS Limited/Unobtainable: No Constitutional: Reports: no symptoms HEENT: Repors: no symptoms Respiratory: Reports: no symptoms Allergies: Coded Allergies: No Known Allergies (Verified , 10/22/06) Objective Last 24 Hour Vital Signs Date Time Temp Pulse Resp B/P (MAP) Pulse Ox O2 Delivery O2 Flow Rate FiO2 01/13/19 09:00 Nasal Cannula 2.0 01/13/19 08:00 98.0 87 18 122/80 (94) 99 01/13/19 04:00 97.6 99 20 110/72 (85) 97 01/13/19 00:00 97.4 101 20 100/64 (76) 97 01/12/19 21:00 Room Air 01/12/19 20:00 98.3 103 16 97/60 (72) 93 Intake and Output 01/12/19 01/13/19 19:00 07:00 Intake Total 110.0 ml 697.5 ml Balance 110.0 ml 697.5 ml Intake Oral 560 ml IV Total 110.0 ml 137.5 ml # Voids 5 # Bowel Movements 1 2 General Appearance: no acute distress, cachetic HEENT: normocephalic Respiratory/Chest: chest wall non-tender, lungs clear Cardiovascular: normal rate, regularly irregular Abdomen: normal bowel sounds, no mass Extremities: no clubbing Microbiology Date/Time Source Procedure Growth Status 01/11/19 08:35 Ascities Fluid Gram Stain - Final Resulted 01/11/19 08:35 Ascities Fluid Body Fluid Culture - Preliminary NO GROWTH AFTER 24 HOURS Resulted Laboratory Tests 01/13/19 05:15: White Blood Count 26.0*H, Red Blood Count 3.10L, Hemoglobin 9.8L, Hematocrit 31.0L, Mean Corpuscular Volume 100H, Mean Corpuscular Hemoglobin 31.6H, Mean Corpuscular Hemoglobin Concent 31.7L, Red Cell Distribution Width 15.6H, Platelet Count 295, Mean Platelet Volume 6.8, Neutrophils (%) (Auto) , Lymphocytes (%) (Auto) , Monocytes (%) (Auto) , Eosinophils (%) (Auto) , Basophils (%) (Auto) , Differential Total Cells Counted 100, Neutrophils % ( Manual) 90H, Lymphocytes % (Manual) 3L, Monocytes % (Manual) 5, Eosinophils % ( Manual) 2, Basophils % (Manual) 0, Band Neutrophils 0, Platelet Estimate Adequate, Platelet Morphology Normal, Hypochromasia 1+, Anisocytosis 1+, Sodium Level 143, Potassium Level 3.4L, Chloride Level 108H, Carbon Dioxide Level 23, Anion Gap 12, Blood Urea Nitrogen 22H, Creatinine 1.2, Estimat Glomerular Filtration Rate > 60, Glucose Level 120H, Calcium Level 7.5L, Phosphorus Level 2.3L, Magnesium Level 1.8, Total Bilirubin 16.1H, Direct Bilirubin 13.8H, Gamma Glutamyl Transpeptidase 969H, Aspartate Amino Transf (AST/SGOT) 119H, Alanine Aminotransferase (ALT/SGPT) 23, Alkaline Phosphatase 498H, Ammonia 46H, Total Protein 4.6L, Albumin 1.4L, Globulin 3.2, Albumin/Globulin Ratio 0.4L Current Medications Medications (Trade) Dose Ordered Sig/Clyde Route PRN Reason Start Time Stop Time Status Last Admin Dose Admin Acetaminophen (Tylenol) 650 mg Q4H PRN ORAL Mild Pain/Temp > 100.5 01/05/19 18:23 02/04/19 18:22 01/12/19 02:05 Chlorhexidine Gluconate (Sharmila-Hex 2%) 1 applic DAILY@1999 TOPIC 01/05/19 20:00 02/01/19 19:59 01/12/19 21:02 Dextrose (Dextrose 50%) 25 ml Q30M PRN IV Hypoglycemia 01/05/19 18:30 01/28/19 16:29 Dextrose (Dextrose 50%) 50 ml Q30M PRN IV Hypoglycemia 01/05/19 18:30 01/28/19 16:29 Lactulose (Cephulac) 30 gm QID ORAL 01/13/19 13:00 02/01/19 08:59 Midodrine (Pro-Amatine) 10 mg THREE TIMES A DAY ORAL 01/13/19 10:11 02/01/19 12:59 01/13/19 10:16 Ondansetron HCl (Zofran) 4 mg Q6H PRN IVP Nausea & Vomiting 01/05/19 18:25 02/04/19 18:24 Pantoprazole (Protonix) 40 mg BID ORAL 01/06/19 09:00 01/28/19 17:59 01/13/19 09:14 Piperacillin Sod/ Tazobactam Sod 3.375 gm/Sodium Chloride 110 ml @ 27.5 mls/hr EVERY 8 HOURS IVPB 01/07/19 14:00 01/16/19 13:59 01/13/19 05:45 Rifaximin (Xifaxan) 550 mg EVERY 12 HOURS ORAL 01/09/19 16:00 01/16/19 15:59 01/13/19 09:14 Marion Schneider MD Jan 13, 2019 12:39
--- NOTE | 2019-01-13 12:48 | General Progress Note ---
Assessment/Plan Problem List: (1) Abdominal pain ICD Codes: R10.9 - Unspecified abdominal pain SNOMED: 30903178 (2) Anemia ICD Codes: D64.9 - Anemia, unspecified SNOMED: 106321750 (3) Alcoholic liver disease ICD Codes: K70.9 - Alcoholic liver disease, unspecified SNOMED: 60849497 (4) Acute alcoholic gastritis ICD Codes: K29.20 - Alcoholic gastritis without bleeding SNOMED: 0147106 Qualifiers: Qualified Codes: K29.20 - Alcoholic gastritis without bleeding Status: unchanged Assessment/Plan: detox gi f/u cbc bmp dc plan snf if clear Subjective Constitutional: Reports: weakness Allergies: Coded Allergies: No Known Allergies (Verified , 10/22/06) All Systems: reviewed and negative except above Subjective o2nc sleepy sitting calm Objective Last 24 Hour Vital Signs Date Time Temp Pulse Resp B/P (MAP) Pulse Ox O2 Delivery O2 Flow Rate FiO2 01/13/19 09:00 Nasal Cannula 2.0 01/13/19 08:00 98.0 87 18 122/80 (94) 99 01/13/19 04:00 97.6 99 20 110/72 (85) 97 01/13/19 00:00 97.4 101 20 100/64 (76) 97 01/12/19 21:00 Room Air 01/12/19 20:00 98.3 103 16 97/60 (72) 93 Intake and Output 01/12/19 01/13/19 19:00 07:00 Intake Total 110.0 ml 697.5 ml Balance 110.0 ml 697.5 ml Intake Oral 560 ml IV Total 110.0 ml 137.5 ml # Voids 5 # Bowel Movements 1 2 Laboratory Tests 01/13/19 05:15: White Blood Count 26.0*H, Red Blood Count 3.10L, Hemoglobin 9.8L, Hematocrit 31.0L, Mean Corpuscular Volume 100H, Mean Corpuscular Hemoglobin 31.6H, Mean Corpuscular Hemoglobin Concent 31.7L, Red Cell Distribution Width 15.6H, Platelet Count 295, Mean Platelet Volume 6.8, Neutrophils (%) (Auto) , Lymphocytes (%) (Auto) , Monocytes (%) (Auto) , Eosinophils (%) (Auto) , Basophils (%) (Auto) , Differential Total Cells Counted 100, Neutrophils % ( Manual) 90H, Lymphocytes % (Manual) 3L, Monocytes % (Manual) 5, Eosinophils % ( Manual) 2, Basophils % (Manual) 0, Band Neutrophils 0, Platelet Estimate Adequate, Platelet Morphology Normal, Hypochromasia 1+, Anisocytosis 1+, Sodium Level 143, Potassium Level 3.4L, Chloride Level 108H, Carbon Dioxide Level 23, Anion Gap 12, Blood Urea Nitrogen 22H, Creatinine 1.2, Estimat Glomerular Filtration Rate > 60, Glucose Level 120H, Calcium Level 7.5L, Phosphorus Level 2.3L, Magnesium Level 1.8, Total Bilirubin 16.1H, Direct Bilirubin 13.8H, Gamma Glutamyl Transpeptidase 969H, Aspartate Amino Transf (AST/SGOT) 119H, Alanine Aminotransferase (ALT/SGPT) 23, Alkaline Phosphatase 498H, Ammonia 46H, Total Protein 4.6L, Albumin 1.4L, Globulin 3.2, Albumin/Globulin Ratio 0.4L Height (Feet): 5 Height (Inches): 5.00 Weight (Pounds): 195 General Appearance: lethargic EENT: normal ENT inspection Neck: normal alignment Cardiovascular: normal peripheral pulses, normal rate, regular rhythm Respiratory/Chest: chest wall non-tender, lungs clear, normal breath sounds Abdomen: normal bowel sounds, soft, distended Extremities: normal inspection Edema: no edema noted Arm (L), no edema noted Arm (R), no edema noted Leg (L), no edema noted Leg (R), no edema noted Pedal (L), no edema noted Pedal (R), no edema noted Generalized Neurologic: motor weakness Skin: normal pigmentation, warm/dry Corwin Martinez DO Jan 13, 2019 12:48
--- NOTE | 2019-01-13 13:00 | NUR ---
NURSE NOTES: Patient lying on the bed. Denies any pain at this time. Abdominal is distended. MD is aware.
--- NOTE | 2019-01-13 14:18 | General Progress Note ---
Assessment/Plan Problem List: (1) Elevated LFTs ICD Codes: R94.5 - Abnormal results of liver function studies SNOMED: 724488455, 838237274 (2) Esophagitis ICD Codes: K20.9 - Esophagitis, unspecified SNOMED: 93363819 (3) Acute alcoholic gastritis ICD Codes: K29.20 - Alcoholic gastritis without bleeding SNOMED: 5868890 Qualifiers: Qualified Codes: K29.20 - Alcoholic gastritis without bleeding (4) Alcoholic liver disease ICD Codes: K70.9 - Alcoholic liver disease, unspecified SNOMED: 14812611 Status: unchanged Assessment/Plan: Imaging noted, cirrhosis >> rising bili US with doppler r/o Budd-Chiari Syndrome>> negative OB stool negative Stable H&H discriminant function calculated, patient will benefit from glucocorticoid therapy >> held due to elevated WBC Paracentesis yielding 7.4L , rule out SBP >> negative lactulose + xifaxan monitor H&H, prn transfusions bowel regimen ppi fu labs fu neurology recs Subjective ROS Limited/Unobtainable: No Allergies: Coded Allergies: No Known Allergies (Verified , 10/22/06) Objective Last 24 Hour Vital Signs Date Time Temp Pulse Resp B/P (MAP) Pulse Ox O2 Delivery O2 Flow Rate FiO2 01/13/19 12:00 98.3 80 17 118/78 (91) 99 01/13/19 09:00 Nasal Cannula 2.0 01/13/19 08:00 98.0 87 18 122/80 (94) 99 01/13/19 04:00 97.6 99 20 110/72 (85) 97 01/13/19 00:00 97.4 101 20 100/64 (76) 97 01/12/19 21:00 Room Air 01/12/19 20:00 98.3 103 16 97/60 (72) 93 Intake and Output 01/12/19 01/13/19 18:59 06:59 Intake Total 110.0 ml 697.5 ml Balance 110.0 ml 697.5 ml Intake Oral 560 ml IV Total 110.0 ml 137.5 ml # Voids 5 # Bowel Movements 1 2 Laboratory Tests 01/13/19 05:15: White Blood Count 26.0*H, Red Blood Count 3.10L, Hemoglobin 9.8L, Hematocrit 31.0L, Mean Corpuscular Volume 100H, Mean Corpuscular Hemoglobin 31.6H, Mean Corpuscular Hemoglobin Concent 31.7L, Red Cell Distribution Width 15.6H, Platelet Count 295, Mean Platelet Volume 6.8, Neutrophils (%) (Auto) , Lymphocytes (%) (Auto) , Monocytes (%) (Auto) , Eosinophils (%) (Auto) , Basophils (%) (Auto) , Differential Total Cells Counted 100, Neutrophils % ( Manual) 90H, Lymphocytes % (Manual) 3L, Monocytes % (Manual) 5, Eosinophils % ( Manual) 2, Basophils % (Manual) 0, Band Neutrophils 0, Platelet Estimate Adequate, Platelet Morphology Normal, Hypochromasia 1+, Anisocytosis 1+, Sodium Level 143, Potassium Level 3.4L, Chloride Level 108H, Carbon Dioxide Level 23, Anion Gap 12, Blood Urea Nitrogen 22H, Creatinine 1.2, Estimat Glomerular Filtration Rate > 60, Glucose Level 120H, Calcium Level 7.5L, Phosphorus Level 2.3L, Magnesium Level 1.8, Total Bilirubin 16.1H, Direct Bilirubin 13.8H, Gamma Glutamyl Transpeptidase 969H, Aspartate Amino Transf (AST/SGOT) 119H, Alanine Aminotransferase (ALT/SGPT) 23, Alkaline Phosphatase 498H, Ammonia 46H, Total Protein 4.6L, Albumin 1.4L, Globulin 3.2, Albumin/Globulin Ratio 0.4L Height (Feet): 5 Height (Inches): 5.00 Weight (Pounds): 195 General Appearance: lethargic EENT: normal ENT inspection Neck: supple Cardiovascular: normal rate Respiratory/Chest: decreased breath sounds Abdomen: normal bowel sounds, non tender, soft Extremities: non-tender Jarod Rich MD Jan 13, 2019 14:18
--- NOTE | 2019-01-13 15:51 | Nephrology Progress Note ---
Assessment/Plan Problem List: (1) Alcoholic liver disease (2) Anemia (3) Electrolyte disorder (4) Jaundice Assessment Acute Alcoholic Gastritis / Encephalopathy - Intoxication Alcoholic Hepatitis Anemia Hypokalemia Psych disease Plan labs noted K Phos IV as needed PO steroids on hold by GI has PICC now K and Mag and Phos supplement as needed Monitor lytes / Lfts per orders Subjective ROS Limited/Unobtainable: No Constitutional: Reports: malaise Objective Objective Last 24 Hour Vital Signs Date Time Temp Pulse Resp B/P (MAP) Pulse Ox O2 Delivery O2 Flow Rate FiO2 01/13/19 12:00 98.3 80 17 118/78 (91) 99 01/13/19 09:00 Nasal Cannula 2.0 01/13/19 08:00 98.0 87 18 122/80 (94) 99 01/13/19 04:00 97.6 99 20 110/72 (85) 97 01/13/19 00:00 97.4 101 20 100/64 (76) 97 01/12/19 21:00 Room Air 01/12/19 20:00 98.3 103 16 97/60 (72) 93 Intake and Output 01/12/19 01/13/19 18:59 06:59 Intake Total 110.0 ml 697.5 ml Balance 110.0 ml 697.5 ml Intake Oral 560 ml IV Total 110.0 ml 137.5 ml # Voids 5 # Bowel Movements 1 2 Laboratory Tests 01/13/19 05:15: White Blood Count 26.0*H, Red Blood Count 3.10L, Hemoglobin 9.8L, Hematocrit 31.0L, Mean Corpuscular Volume 100H, Mean Corpuscular Hemoglobin 31.6H, Mean Corpuscular Hemoglobin Concent 31.7L, Red Cell Distribution Width 15.6H, Platelet Count 295, Mean Platelet Volume 6.8, Neutrophils (%) (Auto) , Lymphocytes (%) (Auto) , Monocytes (%) (Auto) , Eosinophils (%) (Auto) , Basophils (%) (Auto) , Differential Total Cells Counted 100, Neutrophils % ( Manual) 90H, Lymphocytes % (Manual) 3L, Monocytes % (Manual) 5, Eosinophils % ( Manual) 2, Basophils % (Manual) 0, Band Neutrophils 0, Platelet Estimate Adequate, Platelet Morphology Normal, Hypochromasia 1+, Anisocytosis 1+, Sodium Level 143, Potassium Level 3.4L, Chloride Level 108H, Carbon Dioxide Level 23, Anion Gap 12, Blood Urea Nitrogen 22H, Creatinine 1.2, Estimat Glomerular Filtration Rate > 60, Glucose Level 120H, Calcium Level 7.5L, Phosphorus Level 2.3L, Magnesium Level 1.8, Total Bilirubin 16.1H, Direct Bilirubin 13.8H, Gamma Glutamyl Transpeptidase 969H, Aspartate Amino Transf (AST/SGOT) 119H, Alanine Aminotransferase (ALT/SGPT) 23, Alkaline Phosphatase 498H, Ammonia 46H, Total Protein 4.6L, Albumin 1.4L, Globulin 3.2, Albumin/Globulin Ratio 0.4L Height (Feet): 5 Height (Inches): 5.00 Weight (Pounds): 195 General Appearance: no apparent distress Cardiovascular: normal rate Respiratory/Chest: decreased breath sounds Abdomen: distended Objective no change Leonard Bautista MD Jan 13, 2019 15:51
[2019-01-13 15:55] VITALS: BP 98/63
--- NOTE | 2019-01-13 16:10 | NUR ---
NURSE NOTES: Argentina Wolfe RN asked help and went to pt's room. Patient was found on the floor at 1550. Pt stat "I was going to bathroom. I fell and hit head to trash can and I have pain on right upper arm." Checked V/S (BP 98/63, KY 100, BT 98.5, PaO2 98%, RR 16) and physical assessment was done. No bump or bleeding on head noted. No bruise or swelling noted. No N/V noted. Pt had BM and urination on the floor. Cleaned him up and get him go back to bed. Called Dr. Martinez and no answer, left the message. Addendum: 01/13/19 at 2035 by Yessy Montes De Oca RN ADDENDUM When pt was found on the floor, pole was also on the floor. Pt had IV bag running at that time. IV was connected to pt's TITO PICC line. Addendum: 01/13/19 at 2039 by Yessy Montes De Oca RN ADDENDUM Disconneced IV fluid from pt's PICC.
--- NOTE | 2019-01-13 16:20 | NUR ---
NURSE NOTES: Called Dr. Martinez and Dr. Schneider, no answer. Left the message. Pt c/o pain on right arm as 10/02. Pt is in stable condition.
--- NOTE | 2019-01-13 16:48 | NUR ---
NURSE NOTES: Called Dr. Schneider and ordered CT of head without contrast, x-ray for right arm. Noted and carried out.
--- NOTE | 2019-01-13 17:30 | NUR ---
NURSE NOTES: No c/o any pain. Pt is in stable condition.
--- NOTE | 2019-01-13 18:00 | NUR ---
NURSE NOTES: Patient is off the unit for CT of head and x-ray for right shoulder.
--- NOTE | 2019-01-13 18:15 | NUR ---
NURSE NOTES: Patient came back to unit in stable condition.
--- NOTE | 2019-01-13 19:42 | NUR ---
HAND-OFF: Report given to SHAZIA Lanza. Patient is sleeping.
[2019-01-13 20:00] VITALS: BP 99/67
--- NOTE | 2019-01-13 20:24 | Diagnostic Imaging Report ---
EXAM: XR Right Shoulder Complete, 2 or More Views CLINICAL HISTORY: FALL, right shoulder pain TECHNIQUE: Two or more views of the right shoulder. COMPARISON: none FINDINGS: Bones/joints: Mild right acromioclavicular degenerative change. 3 views of the right shoulder were obtained. No acute fracture. No dislocation. Soft tissues: Unremarkable. Pleural space: Small right pleural effusion. Probable skin fold overlying the right lung apex on the scapular Y view. No evidence of a pneumothorax in the included [id number].. IMPRESSION: 1. Mild right acromioclavicular degenerative change. Otherwise negative right shoulder x-rays for acute osseous abnormality. 2. Small right pleural effusion.
--- NOTE | 2019-01-13 20:26 | Diagnostic Imaging Report ---
EXAM: CT Head Without Intravenous Contrast CLINICAL HISTORY: FALL TECHNIQUE: Axial computed tomography images of the head/brain without intravenous contrast. CTDI is 70.38 mGy and DLP is 1407.53 mGy-cm. One or more of the following dose reduction techniques were used: automated exposure control, adjustment of the mA and/or kV according to patient size, use of iterative reconstruction technique. COMPARISON: No contrasted CT of April 10, 2018. FINDINGS: Brain: Generalized parenchymal atrophy is again evident. No hemorrhage. No significant white matter disease. Ventricles: Unremarkable. No ventriculomegaly. Bones/joints: Unremarkable. No acute fracture. Soft tissues: Unremarkable. Sinuses: Unremarkable as visualized. No acute sinusitis. Mastoid air cells: Unremarkable as visualized. No mastoid effusion. IMPRESSION: No acute intracranial pathology.
[2019-01-13] MEDS: Dyna-Hex 2% Top Sol 2oz TOPIC SCH (21:18)
[2019-01-14] VITALS: BP 102/68
[2019-01-14 04:00] VITALS: BP 108/69
[2019-01-14] MEDS: Piperacillin/Tazobactam 3.375 GM in NS 110 ML IVPB SCH ×3 (06:14→21:55)
--- NOTE | 2019-01-14 06:48 | Pulmonology Progress Note ---
Assessment/Plan Problems: (1) End stage liver disease (2) Acute upper GI bleed (3) Acute alcoholic intoxication (4) Coagulopathy (5) Psychosis (6) Acute encephalopathy (7) Alcoholic liver disease Assessment/Plan Ct of head reviewed, no acute bleeding s/p paracentesis, 7 liters removed wbc increasing, blood smear by pathologist. continue abx symptomatic treatment lactulose f/u Ammonia level. Subjective ROS Limited/Unobtainable: No Allergies: Coded Allergies: No Known Allergies (Verified , 10/22/06) Objective Last 24 Hour Vital Signs Date Time Temp Pulse Resp B/P (MAP) Pulse Ox O2 Delivery O2 Flow Rate FiO2 01/14/19 04:00 98.0 87 18 108/69 (82) 99 01/14/19 00:00 97.7 88 102/68 (79) 99 01/13/19 21:00 Nasal Cannula 2.0 01/13/19 20:00 98.1 91 18 99/67 (78) 99 01/13/19 15:55 98.5 100 17 98/63 (75) 98 01/13/19 12:00 98.3 80 17 118/78 (91) 99 01/13/19 09:00 Nasal Cannula 2.0 01/13/19 08:00 98.0 87 18 122/80 (94) 99 Intake and Output 01/13/19 01/14/19 19:00 07:00 Intake Total 1027.5 ml Balance 1027.5 ml Intake Oral 1000 ml IV Total 27.5 ml # Voids 4 # Bowel Movements 2 Objective General Appearance: cachectic HEENT: atraumatic Respiratory/Chest: chest wall non-tender, normal breath sounds Breasts: no masses Cardiovascular: normal rate Abdomen: soft, non tender, ascites Genitourinary: normal external genitalia Extremities: no clubbing Microbiology Date/Time Source Procedure Growth Status 01/11/19 08:35 Ascities Fluid Gram Stain - Final Resulted 01/11/19 08:35 Ascities Fluid Body Fluid Culture - Preliminary NO GROWTH AFTER 24 HOURS Resulted Laboratory Tests 01/14/19 06:30: White Blood Count [Pending], Red Blood Count [Pending], Hemoglobin [Pending], Hematocrit [Pending], Mean Corpuscular Volume [Pending], Mean Corpuscular Hemoglobin [Pending], Mean Corpuscular Hemoglobin Concent [Pending], Red Cell Distribution Width [Pending], Platelet Count [Pending], Mean Platelet Volume [ Pending], Neutrophils (%) (Auto) [Pending], Lymphocytes (%) (Auto) [Pending], Monocytes (%) (Auto) [Pending], Eosinophils (%) (Auto) [Pending], Basophils (%) (Auto) [Pending], Prothrombin Time [Pending], Prothromb Time International Ratio [Pending], Sodium Level [Pending], Potassium Level [Pending], Chloride Level [Pending], Carbon Dioxide Level [Pending], Blood Urea Nitrogen [Pending], Creatinine [Pending], Estimat Glomerular Filtration Rate [Pending], Glucose Level [Pending], Calcium Level [Pending], Total Bilirubin [Pending], Aspartate Amino Transf (AST/SGOT) [Pending], Alanine Aminotransferase (ALT/SGPT) [Pending] , Alkaline Phosphatase [Pending], Ammonia [Pending], Total Protein [Pending], Albumin [Pending], Globulin [Pending] Current Medications Medications (Trade) Dose Ordered Sig/Clyde Route PRN Reason Start Time Stop Time Status Last Admin Dose Admin Acetaminophen (Tylenol) 650 mg Q4H PRN ORAL Mild Pain/Temp > 100.5 01/05/19 18:23 02/04/19 18:22 01/12/19 02:05 Chlorhexidine Gluconate (Sharmila-Hex 2%) 1 applic DAILY@2000 TOPIC 01/05/19 20:00 02/01/19 19:59 01/13/19 21:18 Dextrose (Dextrose 50%) 25 ml Q30M PRN IV Hypoglycemia 01/05/19 18:30 01/28/19 16:29 Dextrose (Dextrose 50%) 50 ml Q30M PRN IV Hypoglycemia 01/05/19 18:30 01/28/19 16:29 Lactulose (Cephulac) 30 gm QID ORAL 01/13/19 13:00 02/01/19 08:59 01/13/19 21:18 Midodrine (Pro-Amatine) 10 mg THREE TIMES A DAY ORAL 01/13/19 10:11 02/01/19 12:59 01/13/19 18:45 Ondansetron HCl (Zofran) 4 mg Q6H PRN IVP Nausea & Vomiting 01/05/19 18:25 02/04/19 18:24 Pantoprazole (Protonix) 40 mg BID ORAL 01/06/19 09:00 01/28/19 17:59 01/13/19 18:45 Piperacillin Sod/ Tazobactam Sod 3.375 gm/Sodium Chloride 110 ml @ 27.5 mls/hr EVERY 8 HOURS IVPB 01/07/19 14:00 01/16/19 13:59 01/14/19 06:14 Rifaximin (Xifaxan) 550 mg EVERY 12 HOURS ORAL 01/09/19 16:00 01/16/19 15:59 01/13/19 21:18 Marion Schneider MD Jan 14, 2019 06:48
[2019-01-14 06:54] LABS: INR 1.9 (0.9-1.1)
[2019-01-14 06:55] LABS: HEMATOCRIT 27.3 % (42.0-52.0); MEAN CORPUSCULAR VOLUME 97 FL (80-99); PLATELET COUNT 267 K/UL (150-450); RED BLOOD COUNT 2.83 M/UL (4.70-6.10); RED CELL DISTRIBUTION WIDTH 15.7 % (11.6-14.8)
[2019-01-14 06:56] LABS: WHITE BLOOD COUNT 24.2 K/UL (4.8-10.8)
[2019-01-14 07:06] LABS: ALANINE AMINOTRANSFERASE 22 U/L (12-78); ALBUMIN 1.2 G/DL (3.4-5.0); ALBUMIN/GLOBULIN RATIO 0.4 (1.0-2.7); ALKALINE PHOSPHATASE 456 U/L (46-116); ANION GAP 12 mmol/L (5-15); ASPARTATE AMINO TRANSFERASE 91 U/L (15-37); BLOOD UREA NITROGEN 28 mg/dL (7-18); CALCIUM 6.9 MG/DL (8.5-10.1); CARBON DIOXIDE 23 MMOL/L (21-32); CHLORIDE 108 MMOL/L (98-107); CREATININE 1.4 MG/DL (0.55-1.30); POTASSIUM 3.2 MMOL/L (3.5-5.1); SODIUM 143 MMOL/L (136-145)
[2019-01-14 07:21] LABS: BILIRUBIN,DIRECT 14.1 MG/DL (0.0-0.3)
--- NOTE | 2019-01-14 07:30 | NUR ---
NURSE NOTES:RECEIVED PATIENT'S PICC LINE CATH WITH THE TUBE EXPOSED FR. THE TIP APPROXIMATELY 17CM.JANES RN(NIGHT CHARGE)AND LYLE SOUTH.(DAY CHARGE)AND MARCELA(PIMARY NURSE)AWARE.WILL CONTINUE TO MONITOR.
--- NOTE | 2019-01-14 07:30 | NUR ---
NURSE NOTES:Patient TITO piccline double Lumen accidentally pulled out. . patient WBC 24.2 H and potassium 3.2 l . yoday 01/14/19.Endorsed to incoming nurse and Mac Charge nurse.
--- NOTE | 2019-01-14 07:33 | NUR ---
HAND-OFF: Report given to Paige Chavarria
--- NOTE | 2019-01-14 07:35 | NUR ---
NURSE NOTES:BEDSIDE ROUNDS WITH CIARRA MCCRAY,PATIENT AWAKE,ORIENTED TO NAME/BIRTHDAY,WITH 2 LITERS N/C SECONDARYN TO SOB ON EXERTION.ON DRNR STATUS.WBC ON THE HIGH SIDE.CALL PLACED TO DR. VALENTE BY NIGHT NURSE.ABDOMEN SEVERELY DISTENDED.HAD PARACENTESIS 2 DAYS AGO.WILL CONTINUE CURRENT PLAN OF CARE.
--- NOTE | 2019-01-14 07:49 | General Progress Note ---
Assessment/Plan Problem List: (1) Abdominal pain ICD Codes: R10.9 - Unspecified abdominal pain SNOMED: 39136455 (2) Anemia ICD Codes: D64.9 - Anemia, unspecified SNOMED: 325104688 (3) Alcoholic liver disease ICD Codes: K70.9 - Alcoholic liver disease, unspecified SNOMED: 70409714 (4) Acute alcoholic gastritis ICD Codes: K29.20 - Alcoholic gastritis without bleeding SNOMED: 8417339 Qualifiers: Qualified Codes: K29.20 - Alcoholic gastritis without bleeding Status: unchanged Assessment/Plan: detox gi f/u cbc bmp dc plan snf if clear Subjective Constitutional: Reports: weakness Allergies: Coded Allergies: No Known Allergies (Verified , 10/22/06) All Systems: reviewed and negative except above Subjective o2nc sleepy calm Objective Last 24 Hour Vital Signs Date Time Temp Pulse Resp B/P (MAP) Pulse Ox O2 Delivery O2 Flow Rate FiO2 01/14/19 04:00 98.0 87 18 108/69 (82) 99 01/14/19 00:00 97.7 88 102/68 (79) 99 01/13/19 21:00 Nasal Cannula 2.0 01/13/19 20:00 98.1 91 18 99/67 (78) 99 01/13/19 15:55 98.5 100 17 98/63 (75) 98 01/13/19 12:00 98.3 80 17 118/78 (91) 99 01/13/19 09:00 Nasal Cannula 2.0 01/13/19 08:00 98.0 87 18 122/80 (94) 99 Intake and Output 01/13/19 01/14/19 19:00 07:00 Intake Total 1027.5 ml Balance 1027.5 ml Intake Oral 1000 ml IV Total 27.5 ml # Voids 4 # Bowel Movements 2 Laboratory Tests 01/14/19 06:30: White Blood Count 24.2*H, Red Blood Count 2.83L, Hemoglobin 9.0L, Hematocrit 27.3L, Mean Corpuscular Volume 97, Mean Corpuscular Hemoglobin 31.8H, Mean Corpuscular Hemoglobin Concent 33.0, Red Cell Distribution Width 15.7H, Platelet Count 267, Mean Platelet Volume 7.0, Neutrophils (%) (Auto) , Lymphocytes (%) (Auto) , Monocytes (%) (Auto) , Eosinophils (%) (Auto) , Basophils (%) (Auto) , Neutrophils % (Manual) [Pending], Lymphocytes % (Manual) [Pending], Platelet Estimate [Pending], Platelet Morphology [Pending], Prothrombin Time 19.7H, Prothromb Time International Ratio 1.9H, Sodium Level 143, Potassium Level 3.2L, Chloride Level 108H, Carbon Dioxide Level 23, Anion Gap 12, Blood Urea Nitrogen 28H, Creatinine 1.4H, Estimat Glomerular Filtration Rate 52.4, Glucose Level 123H, Calcium Level 6.9L, Total Bilirubin 16.0H, Direct Bilirubin 14.1H, Aspartate Amino Transf (AST/SGOT) 91H, Alanine Aminotransferase (ALT/SGPT) 22, Alkaline Phosphatase 456H, Ammonia 31, Total Protein 4.3L, Albumin 1.2L, Globulin 3.1, Albumin/Globulin Ratio 0.4L Height (Feet): 5 Height (Inches): 5.00 Weight (Pounds): 195 General Appearance: lethargic EENT: normal ENT inspection Neck: normal alignment Cardiovascular: normal peripheral pulses, normal rate, regular rhythm Respiratory/Chest: chest wall non-tender, lungs clear, normal breath sounds Abdomen: normal bowel sounds, soft, distended Extremities: normal inspection Edema: no edema noted Arm (L), no edema noted Arm (R), no edema noted Leg (L), no edema noted Leg (R), no edema noted Pedal (L), no edema noted Pedal (R), no edema noted Generalized Neurologic: motor weakness Skin: normal pigmentation, warm/dry Corwin Martinez DO Jan 14, 2019 07:49
[2019-01-14 08:00] VITALS: BP 92/68
[2019-01-14] MEDS: Lactulose 20gm/30ml UDC ORAL SCH ×4 (08:26→20:42)
[2019-01-14] MEDS: Midodrine 10mg tab ORAL SCH ×3 (08:27→18:58)
[2019-01-14] MEDS ORDERED: Spironolactone 25mg tab ORAL SCH (09:30)
--- NOTE | 2019-01-14 10:00 | NUR ---
NURSE NOTES:FLUSHED AND DRAW BLOOD FR. PICC LINE.BOTH PORTS WORKING.DR. LI NOTIFIED RE:STATUS OF PICC LINE.NO ORDER FOR XRAY.CHARGE NURSE INFORMED.
--- NOTE | 2019-01-14 10:41 | General Progress Note ---
Assessment/Plan Problem List: (1) Elevated LFTs ICD Codes: R94.5 - Abnormal results of liver function studies SNOMED: 823772566, 438119085 (2) Esophagitis ICD Codes: K20.9 - Esophagitis, unspecified SNOMED: 12040414 (3) Acute alcoholic gastritis ICD Codes: K29.20 - Alcoholic gastritis without bleeding SNOMED: 6006753 Qualifiers: Qualified Codes: K29.20 - Alcoholic gastritis without bleeding (4) Alcoholic liver disease ICD Codes: K70.9 - Alcoholic liver disease, unspecified SNOMED: 33569507 Status: unchanged Assessment/Plan: Imaging noted, cirrhosis >> rising bili US with doppler r/o Budd-Chiari Syndrome>> negative OB stool negative Stable H&H discriminant function calculated, patient will benefit from glucocorticoid therapy >> held due to elevated WBC Paracentesis yielding 7.4L , rule out SBP >> negative lactulose + xifaxan monitor H&H, prn transfusions bowel regimen ppi fu labs fu neurology recs Subjective ROS Limited/Unobtainable: No Allergies: Coded Allergies: No Known Allergies (Verified , 10/22/06) Objective Last 24 Hour Vital Signs Date Time Temp Pulse Resp B/P (MAP) Pulse Ox O2 Delivery O2 Flow Rate FiO2 01/14/19 08:00 97.3 109 16 92/68 (76) 94 01/14/19 07:33 Nasal Cannula 2.0 01/14/19 04:00 98.0 87 18 108/69 (82) 99 01/14/19 00:00 97.7 88 102/68 (79) 99 01/13/19 21:00 Nasal Cannula 2.0 01/13/19 20:00 98.1 91 18 99/67 (78) 99 01/13/19 15:55 98.5 100 17 98/63 (75) 98 01/13/19 12:00 98.3 80 17 118/78 (91) 99 Intake and Output 01/13/19 01/14/19 19:00 07:00 Intake Total 1027.5 ml 600 ml Balance 1027.5 ml 600 ml Intake Oral 1000 ml 600 ml IV Total 27.5 ml # Voids 4 3 # Bowel Movements 2 1 Laboratory Tests 01/14/19 06:30: White Blood Count 24.2*H, Red Blood Count 2.83L, Hemoglobin 9.0L, Hematocrit 27.3L, Mean Corpuscular Volume 97, Mean Corpuscular Hemoglobin 31.8H, Mean Corpuscular Hemoglobin Concent 33.0, Red Cell Distribution Width 15.7H, Platelet Count 267, Mean Platelet Volume 7.0, Neutrophils (%) (Auto) , Lymphocytes (%) (Auto) , Monocytes (%) (Auto) , Eosinophils (%) (Auto) , Basophils (%) (Auto) , Differential Total Cells Counted 100, Neutrophils % ( Manual) 85H, Lymphocytes % (Manual) 4L, Monocytes % (Manual) 9, Eosinophils % ( Manual) 2, Basophils % (Manual) 0, Band Neutrophils 0, Platelet Estimate Adequate, Platelet Morphology Normal, Hypochromasia 1+, Anisocytosis 1+, Prothrombin Time 19.7H, Prothromb Time International Ratio 1.9H, Sodium Level 143, Potassium Level 3.2L, Chloride Level 108H, Carbon Dioxide Level 23, Anion Gap 12, Blood Urea Nitrogen 28H, Creatinine 1.4H, Estimat Glomerular Filtration Rate 52.4, Glucose Level 123H, Calcium Level 6.9L, Total Bilirubin 16.0H, Direct Bilirubin 14.1H, Aspartate Amino Transf (AST/SGOT) 91H, Alanine Aminotransferase (ALT/SGPT) 22, Alkaline Phosphatase 456H, Ammonia 31, Total Protein 4.3L, Albumin 1.2L, Globulin 3.1, Albumin/Globulin Ratio 0.4L Height (Feet): 5 Height (Inches): 5.00 Weight (Pounds): 195 General Appearance: lethargic EENT: normal ENT inspection, scleral icterus Neck: supple Cardiovascular: normal peripheral pulses Respiratory/Chest: decreased breath sounds Abdomen: normal bowel sounds, non tender, soft Jarod Rich MD Jan 14, 2019 10:41
--- NOTE | 2019-01-14 11:35 | Nephrology Progress Note ---
Assessment/Plan Problem List: (1) Alcoholic liver disease (2) Anemia (3) Electrolyte disorder (4) Jaundice Assessment Acute Alcoholic Gastritis / Encephalopathy - Intoxication Alcoholic Hepatitis Anemia Hypokalemia Psych disease Plan start PO KCL and Aldactone labs noted K Phos IV as needed PO steroids on hold by GI has PICC now K and Mag and Phos supplement as needed Monitor lytes / Lfts per orders Subjective ROS Limited/Unobtainable: No Constitutional: Reports: malaise Objective Objective Last 24 Hour Vital Signs Date Time Temp Pulse Resp B/P (MAP) Pulse Ox O2 Delivery O2 Flow Rate FiO2 01/14/19 08:00 97.3 109 16 92/68 (76) 94 01/14/19 07:33 Nasal Cannula 2.0 01/14/19 04:00 98.0 87 18 108/69 (82) 99 01/14/19 00:00 97.7 88 102/68 (79) 99 01/13/19 21:00 Nasal Cannula 2.0 01/13/19 20:00 98.1 91 18 99/67 (78) 99 01/13/19 15:55 98.5 100 17 98/63 (75) 98 01/13/19 12:00 98.3 80 17 118/78 (91) 99 Intake and Output 01/13/19 01/14/19 19:00 07:00 Intake Total 1027.5 ml 600 ml Balance 1027.5 ml 600 ml Intake Oral 1000 ml 600 ml IV Total 27.5 ml # Voids 4 3 # Bowel Movements 2 1 Laboratory Tests 01/14/19 06:30: White Blood Count 24.2*H, Red Blood Count 2.83L, Hemoglobin 9.0L, Hematocrit 27.3L, Mean Corpuscular Volume 97, Mean Corpuscular Hemoglobin 31.8H, Mean Corpuscular Hemoglobin Concent 33.0, Red Cell Distribution Width 15.7H, Platelet Count 267, Mean Platelet Volume 7.0, Neutrophils (%) (Auto) , Lymphocytes (%) (Auto) , Monocytes (%) (Auto) , Eosinophils (%) (Auto) , Basophils (%) (Auto) , Differential Total Cells Counted 100, Neutrophils % ( Manual) 85H, Lymphocytes % (Manual) 4L, Monocytes % (Manual) 9, Eosinophils % ( Manual) 2, Basophils % (Manual) 0, Band Neutrophils 0, Platelet Estimate Adequate, Platelet Morphology Normal, Hypochromasia 1+, Anisocytosis 1+, Prothrombin Time 19.7H, Prothromb Time International Ratio 1.9H, Sodium Level 143, Potassium Level 3.2L, Chloride Level 108H, Carbon Dioxide Level 23, Anion Gap 12, Blood Urea Nitrogen 28H, Creatinine 1.4H, Estimat Glomerular Filtration Rate 52.4, Glucose Level 123H, Calcium Level 6.9L, Total Bilirubin 16.0H, Direct Bilirubin 14.1H, Aspartate Amino Transf (AST/SGOT) 91H, Alanine Aminotransferase (ALT/SGPT) 22, Alkaline Phosphatase 456H, Ammonia 31, Total Protein 4.3L, Albumin 1.2L, Globulin 3.1, Albumin/Globulin Ratio 0.4L Height (Feet): 5 Height (Inches): 5.00 Weight (Pounds): 195 General Appearance: no apparent distress EENT: other - jaundice Cardiovascular: tachycardia Respiratory/Chest: decreased breath sounds Abdomen: distended Objective no change Leonard Bautista MD Jan 14, 2019 11:35
[2019-01-14 12:00] VITALS: BP 89/58
--- NOTE | 2019-01-14 12:46 | NUR ---
NURSE NOTES:SEEN BY DR. ROSAS,AWARE RE:CXR RESULTS FOR TODAY.D/C ORDERS CARRIED OUT.D/C INSTRUCTIONS,RX,BELONGINGS CONFIRMED AND ACKNOWLEDGE BY PATIENT AND . Addendum: 01/14/19 at 1248 by YASMIN PANDEY RN NURSE NOTES:ABOVE NOTES ADDRESSED FOR ANOTHER PATIENT.
--- NOTE | 2019-01-14 12:48 | NUR ---
NURSE NOTES:DR. LI INFORMED RE:BP. 89/58.NO ORDERS.
[2019-01-14] MEDS ORDERED: Phytonadione 1 MG in D5W 55 ML IVPB ONE (13:00)
--- NOTE | 2019-01-14 13:01 | Cardiac Electrophysiology PN ---
Assessment/Plan Assessment/Plan 1. Hypotension and sinus tach, on Midodrine 10 tid 2. Atypical Chest pain . EKG nonspecific ST-T wave abnormality. No MA. Echo EF 55% 3. Persistent hypokalemia. Corrected. 4. Leukocytosis. On Abx and steroid 5. ETOH Cirrhosis with Bilirubin 14. FU GI. S/P 7 liters of paracentesis 01/11/19 6. [facility] RN Subjective Subjective Very weak. RN at bedside. Awaiting Placement Objective Last 24 Hour Vital Signs Date Time Temp Pulse Resp B/P (MAP) Pulse Ox O2 Delivery O2 Flow Rate FiO2 01/14/19 12:00 97.2 102 16 89/58 (68) 94 01/14/19 08:00 97.3 109 16 92/68 (76) 94 01/14/19 07:33 Nasal Cannula 2.0 01/14/19 04:00 98.0 87 18 108/69 (82) 99 01/14/19 00:00 97.7 88 102/68 (79) 99 01/13/19 21:00 Nasal Cannula 2.0 01/13/19 20:00 98.1 91 18 99/67 (78) 99 01/13/19 15:55 98.5 100 17 98/63 (75) 98 Intake and Output 01/13/19 01/14/19 19:00 07:00 Intake Total 1027.5 ml 600 ml Balance 1027.5 ml 600 ml Intake Oral 1000 ml 600 ml IV Total 27.5 ml # Voids 4 3 # Bowel Movements 2 1 Laboratory Tests Test 01/14/19 06:30 White Blood Count 24.2 K/UL (4.8-10.8) *H Red Blood Count 2.83 M/UL (4.70-6.10) L Hemoglobin 9.0 G/DL (14.2-18.0) L Hematocrit 27.3 % (42.0-52.0) L Mean Corpuscular Volume 97 FL (80-99) Mean Corpuscular Hemoglobin 31.8 PG (27.0-31.0) H Mean Corpuscular Hemoglobin Concent 33.0 G/DL (32.0-36.0) Red Cell Distribution Width 15.7 % (11.6-14.8) H Platelet Count 267 K/UL (150-450) Mean Platelet Volume 7.0 FL (6.5-10.1) Neutrophils (%) (Auto) % (45.0-75.0) Lymphocytes (%) (Auto) % (20.0-45.0) Monocytes (%) (Auto) % (1.0-10.0) Eosinophils (%) (Auto) % (0.0-3.0) Basophils (%) (Auto) % (0.0-2.0) Differential Total Cells Counted 100 Neutrophils % (Manual) 85 % (45-75) H Lymphocytes % (Manual) 4 % (20-45) L Monocytes % (Manual) 9 % (1-10) Eosinophils % (Manual) 2 % (0-3) Basophils % (Manual) 0 % (0-2) Band Neutrophils 0 % (0-8) Platelet Estimate Adequate Platelet Morphology Normal Hypochromasia 1+ Anisocytosis 1+ Prothrombin Time 19.7 SEC (9.30-11.50) H Prothromb Time International Ratio 1.9 (0.9-1.1) H Sodium Level 143 MMOL/L (136-145) Potassium Level 3.2 MMOL/L (3.5-5.1) L Chloride Level 108 MMOL/L (98-107) H Carbon Dioxide Level 23 MMOL/L (21-32) Anion Gap 12 mmol/L (5-15) Blood Urea Nitrogen 28 mg/dL (7-18) H Creatinine 1.4 MG/DL (0.55-1.30) H Estimat Glomerular Filtration Rate 52.4 mL/min (>60) Glucose Level 123 MG/DL (74-106) H Calcium Level 6.9 MG/DL (8.5-10.1) L Total Bilirubin 16.0 MG/DL (0.2-1.0) H Direct Bilirubin 14.1 MG/DL (0.0-0.3) H Aspartate Amino Transf (AST/SGOT) 91 U/L (15-37) H Alanine Aminotransferase (ALT/SGPT) 22 U/L (12-78) Alkaline Phosphatase 456 U/L (46-116) H Ammonia 31 umol/L (11-32) Total Protein 4.3 G/DL (6.4-8.2) L Albumin 1.2 G/DL (3.4-5.0) L Globulin 3.1 g/dL Albumin/Globulin Ratio 0.4 (1.0-2.7) L Objective HEENT: Jaundiced sclera Cardiovascular: normal S1 and S2 and no murmur Respiratory/Chest: normal breath sounds, no respiratory distress Abdominal Exam: Soft with ascites Extremities: normal range of motion, non-tender. 1 plus edema Franck Saeed MD Jan 14, 2019 13:01
--- NOTE | 2019-01-14 13:40 | NUR ---
NURSE NOTES: Report received from Paige RN, rounds made. Patient alert to self, resting in right lateral position in bed. Calm. TITO PICC line catheter noted along lower distal part of left arm, however, secured with tegederms and remains inserted, flushes/functional. Overall skin appearance is jaundice like. Abdomen firm, distended. No edema. Skin remains intact. No SOB on O2 2LNC. Denies pain or NV. Call light in reach, bed in lowest position, will continue to monitor.
--- NOTE | 2019-01-14 13:53 | NUR ---
HAND-OFF: Report given to JUANCARLOS SOUTH.RE:CONTINUITY OF CARE. PATIENT STABLE.
[2019-01-14 16:00] VITALS: BP 84/51
--- NOTE | 2019-01-14 16:19 | NUR ---
CASE MANAGEMENT:REVIEW 01/14/19 SI: ACUTE ENCEPHALOPATHY ALCOHOLIC LIVER DISEASE. S/P PARACENTESIS ~ 7.4L REMOVED T 97.7 HR 88 RR 18 B/P 102/68 SATS 99% ON 2L/NC WBC 24.2 K 3.2 CL 108 BUN 28 CR 1.4 GLU 123 CA 6.9 TBILI 16 DBILI 14.1 AST 91 ALP 456 IS: IV K-PHOS X1 IV ZOSYN Q8HRS RIFAXIMIN PO Q12 MIDODRINE PO TID LACTULOSE PO TID PROTONIX PO BID :MED/SURG STATUS 3 EAST PLAN: PLAN IS TO DISCHARGE TO [facility] ONCE WBC'S ARE CLOSER TO NORMAL RANGE ASCITES FLUID CULTURE PENDING WBC'S RISING~ MD NOT COMFORTABLE DISCHARGING
--- NOTE | 2019-01-14 19:30 | NUR ---
HAND-OFF: Report given to Jd SOUTH.
--- NOTE | 2019-01-14 19:31 | NUR ---
NURSE NOTES: Report taken from BRANNON Becker. patient is asleep, arousable by name and touch. A&Ox3. Patient when awake, continually states that he wants to , RN spoke with patient for about how he is feeling. Has some bruising on bilateral UE, no furter skin issues noted. PICC line is withdrawn, some of the line is still inserted in patient, MD aware and stated that if it still works do not remove or insert further. MD aware aileen patient BP is low. Bed in lowest position, call light within reach.
[2019-01-14 20:00] VITALS: BP 89/52
[2019-01-14] MEDS: Dyna-Hex 2% Top Sol 2oz TOPIC SCH (20:00)
[2019-01-15] VITALS: BP 82/51
[2019-01-15 04:00] VITALS: BP 88/56
[2019-01-15] MEDS: Piperacillin/Tazobactam 3.375 GM in NS 110 ML IVPB SCH ×3 (05:49→22:05)
[2019-01-15 07:20] LABS: HEMATOCRIT 33.5 % (42.0-52.0); HEMOGLOBIN 10.7 G/DL (14.2-18.0); MEAN CORPUSCULAR VOLUME 100 FL (80-99); PLATELET COUNT 308 K/UL (150-450); RED BLOOD COUNT 3.37 M/UL (4.70-6.10); RED CELL DISTRIBUTION WIDTH 15.9 % (11.6-14.8)
[2019-01-15 07:27] LABS: WHITE BLOOD COUNT 25.8 K/UL (4.8-10.8)
--- NOTE | 2019-01-15 07:28 | NUR ---
HAND-OFF: Report given to BRANNON Becker. Patient is asleep, VS stable. PICC line return ok.
[2019-01-15 07:32] LABS: INR 1.6 (0.9-1.1)
[2019-01-15 08:00] VITALS: BP 75/53
--- NOTE | 2019-01-15 08:25 | General Progress Note ---
Assessment/Plan Problem List: (1) Elevated LFTs ICD Codes: R94.5 - Abnormal results of liver function studies SNOMED: 704280715, 364269984 (2) Esophagitis ICD Codes: K20.9 - Esophagitis, unspecified SNOMED: 54428169 (3) Acute alcoholic gastritis ICD Codes: K29.20 - Alcoholic gastritis without bleeding SNOMED: 7152219 Qualifiers: Qualified Codes: K29.20 - Alcoholic gastritis without bleeding (4) Alcoholic liver disease ICD Codes: K70.9 - Alcoholic liver disease, unspecified SNOMED: 00640666 Status: unchanged Assessment/Plan: Imaging noted, cirrhosis >> rising bili US with doppler r/o Budd-Chiari Syndrome>> negative OB stool negative Stable H&H discriminant function calculated, patient will benefit from glucocorticoid therapy >> held due to elevated WBC Paracentesis yielding 7.4L , rule out SBP >> negative lactulose + xifaxan monitor H&H, prn transfusions bowel regimen ppi fu labs fu neurology recs Subjective ROS Limited/Unobtainable: No Allergies: Coded Allergies: No Known Allergies (Verified , 10/22/06) Objective Last 24 Hour Vital Signs Date Time Temp Pulse Resp B/P (MAP) Pulse Ox O2 Delivery O2 Flow Rate FiO2 01/15/19 04:00 97.9 82 16 88/56 (67) 100 01/15/19 00:00 98.2 97 18 82/51 (61) 100 01/14/19 21:00 Nasal Cannula 2.0 01/14/19 20:00 98.1 92 18 89/52 (64) 93 01/14/19 17:30 Nasal Cannula 2.0 01/14/19 16:00 98.0 106 16 84/51 (62) 95 01/14/19 12:00 97.2 102 16 89/58 (68) 94 Intake and Output 01/14/19 01/15/19 19:00 07:00 Intake Total 773 ml 240 ml Balance 773 ml 240 ml Intake Oral 773 ml 240 ml # Voids 2 2 # Bowel Movements 2 3 Laboratory Tests 01/15/19 04:50: White Blood Count 25.8*H, Red Blood Count 3.37L, Hemoglobin 10.7L, Hematocrit 33.5L, Mean Corpuscular Volume 100H, Mean Corpuscular Hemoglobin 31.8H, Mean Corpuscular Hemoglobin Concent 31.9L, Red Cell Distribution Width 15.9H, Platelet Count 308, Mean Platelet Volume 7.1, Neutrophils (%) (Auto) , Lymphocytes (%) (Auto) , Monocytes (%) (Auto) , Eosinophils (%) (Auto) , Basophils (%) (Auto) , Neutrophils % (Manual) [Pending], Lymphocytes % (Manual) [Pending], Platelet Estimate [Pending], Platelet Morphology [Pending], Prothrombin Time 16.9H, Prothromb Time International Ratio 1.6H, Sodium Level [ Pending], Potassium Level [Pending], Chloride Level [Pending], Carbon Dioxide Level [Pending], Blood Urea Nitrogen [Pending], Creatinine [Pending], Estimat Glomerular Filtration Rate [Pending], Glucose Level [Pending], Calcium Level [ Pending], Total Bilirubin [Pending], Aspartate Amino Transf (AST/SGOT) [Pending] , Alanine Aminotransferase (ALT/SGPT) [Pending], Alkaline Phosphatase [Pending] , Total Protein [Pending], Albumin [Pending], Globulin [Pending] Height (Feet): 5 Height (Inches): 5.00 Weight (Pounds): 195 General Appearance: no apparent distress EENT: normal ENT inspection Neck: supple Cardiovascular: normal rate Respiratory/Chest: decreased breath sounds Abdomen: normal bowel sounds, non tender, soft Extremities: non-tender Jarod Rich MD Jan 15, 2019 08:25
[2019-01-15 09:12] LABS: ALANINE AMINOTRANSFERASE 24 U/L (12-78); ALBUMIN 1.3 G/DL (3.4-5.0); ALBUMIN/GLOBULIN RATIO 0.3 (1.0-2.7); ALKALINE PHOSPHATASE 562 U/L (46-116); ANION GAP 15 mmol/L (5-15); ASPARTATE AMINO TRANSFERASE 127 U/L (15-37); BILIRUBIN,TOTAL 18.8 MG/DL (0.2-1.0); BLOOD UREA NITROGEN 32 mg/dL (7-18); CALCIUM 7.5 MG/DL (8.5-10.1); CARBON DIOXIDE 18 MMOL/L (21-32); CHLORIDE 109 MMOL/L (98-107); CREATININE 1.6 MG/DL (0.55-1.30); POTASSIUM 3.8 MMOL/L (3.5-5.1); SODIUM 142 MMOL/L (136-145)
[2019-01-15 09:27] LABS: BILIRUBIN,DIRECT 15.9 MG/DL (0.0-0.3)
[2019-01-15] MEDS: Midodrine 10mg tab ORAL SCH ×3 (09:50→18:43)
[2019-01-15] MEDS: Lactulose 20gm/30ml UDC ORAL SCH ×4 (09:50→20:34)
--- NOTE | 2019-01-15 09:52 | Infectious Diseases Prog Note ---
Assessment/Plan Assessment/Plan 58 yo male with PMHx of EtOH abuse, Depression and anxiety, SI who presented to the ED on 12/29/18 with N/V and abdominal pain. Leukocytosis and single high temp- S/P Prednisone 01/09/19 Likely due to gastritis from EtOH need -MRCP : Very limited exam, as described. Normal caliber bile ducts without definite filling defects to suggest choledocholithiasis Cholelithiasis. Gallbladder wall thickening, also described on prior sonogram. Most likely on the basis of hepatocellular derangement but the possibility of acute cholecystitis should also be considered. Ascites. Abnormal hepatic morphology, also previously described, suggestive of cirrhotic change -Abd US: Hepatomegaly. Coarsened hepatic echogenicity and surface nodularitysuggests cirrhosis. Ascites, not demonstrated previously. Cholelithiasis and gallbladder sludge, not evident previously. Gallbladder wall thickening and pericholecystic fluid, probably due to the hepatocellular derangements, but the possibility of acute cholecystitis should also be considered. Correlate with clinical findings, consider nuclear medicine hepatobiliary scan if clinically indicated. Negative for dilated bile ducts. Incidental finding small left renal cyst -CT abd/p: Chronic liver disease/cirrhosis with fatty infiltration, enlargement of the liver and stigmata of portal hypertension including ascites and splenomegaly, recanalized umbilical vein. Basilar atelectasis. Probable gallstones. Tiny bilateral renal hypodensities too small to characterize.Fecal impaction Cirrhosis EtOH abuse Hep A/B/C - Neg Paracentesis Cx 01/11/19 - Neg Depression and anxiety SI HIV (-) PLAN: - Continue Zosyn #9/10 for possible acute cholecystitis Will consider d/cing as WBCs likely reactive for liver pathology - 01/08/19 S/P Levofloxacin #6 and Flagyl #6 - 01/03/19 S/P Zosyn #5 - Monitor CBC and Temps - Monitor clinically - Consider paracentesis for symptom relief We will continue to follow the patient during this hospitalization. Subjective Allergies: Coded Allergies: No Known Allergies (Verified , 10/22/06) Subjective Afebrile Leukoctyosis 25 Objective Vital Signs Last 24 Hour Vital Signs Date Time Temp Pulse Resp B/P (MAP) Pulse Ox O2 Delivery O2 Flow Rate FiO2 01/15/19 04:00 97.9 82 16 88/56 (67) 100 6/23/19 00:00 98.2 97 18 82/51 (61) 100 01/14/19 21:00 Nasal Cannula 2.0 01/14/19 20:00 98.1 92 18 89/52 (64) 93 01/14/19 17:30 Nasal Cannula 2.0 01/14/19 16:00 98.0 106 16 84/51 (62) 95 01/14/19 12:00 97.2 102 16 89/58 (68) 94 Height (Feet): 5 Height (Inches): 5.00 Weight (Pounds): 195 Objective Gen: Worried HEENT: NCAT, MMM, EOMI LUNGS: CTAB, No W CARDS: RRR, S1, S2, No M/R/G, ABD: Soft, NT, Distended, No R/G Laboratory Tests Test 01/15/19 04:50 01/15/19 07:50 White Blood Count 25.8 K/UL (4.8-10.8) *H Red Blood Count 3.37 M/UL (4.70-6.10) L Hemoglobin 10.7 G/DL (14.2-18.0) L Hematocrit 33.5 % (42.0-52.0) L Mean Corpuscular Volume 100 FL (80-99) H Mean Corpuscular Hemoglobin 31.8 PG (27.0-31.0) H Mean Corpuscular Hemoglobin Concent 31.9 G/DL (32.0-36.0) L Red Cell Distribution Width 15.9 % (11.6-14.8) H Platelet Count 308 K/UL (150-450) Mean Platelet Volume 7.1 FL (6.5-10.1) Neutrophils (%) (Auto) % (45.0-75.0) Lymphocytes (%) (Auto) % (20.0-45.0) Monocytes (%) (Auto) % (1.0-10.0) Eosinophils (%) (Auto) % (0.0-3.0) Basophils (%) (Auto) % (0.0-2.0) Differential Total Cells Counted 100 Neutrophils % (Manual) 88 % (45-75) H Lymphocytes % (Manual) 4 % (20-45) L Monocytes % (Manual) 6 % (1-10) Eosinophils % (Manual) 1 % (0-3) Basophils % (Manual) 0 % (0-2) Band Neutrophils 1 % (0-8) Platelet Estimate Adequate Platelet Morphology Normal Hypochromasia 1+ Anisocytosis 1+ Macrocytosis 1+ Prothrombin Time 16.9 SEC (9.30-11.50) H Prothromb Time International Ratio 1.6 (0.9-1.1) H Sodium Level 142 MMOL/L (136-145) Potassium Level 3.8 MMOL/L (3.5-5.1) Chloride Level 109 MMOL/L (98-107) H Carbon Dioxide Level 18 MMOL/L (21-32) L Anion Gap 15 mmol/L (5-15) Blood Urea Nitrogen 32 mg/dL (7-18) H Creatinine 1.6 MG/DL (0.55-1.30) H Estimat Glomerular Filtration Rate 44.9 mL/min (>60) Glucose Level 122 MG/DL (74-106) H Calcium Level 7.5 MG/DL (8.5-10.1) L Total Bilirubin 18.8 MG/DL (0.2-1.0) H Direct Bilirubin 15.9 MG/DL (0.0-0.3) H Aspartate Amino Transf (AST/SGOT) 127 U/L (15-37) H Alanine Aminotransferase (ALT/SGPT) 24 U/L (12-78) Alkaline Phosphatase 562 U/L (46-116) H Total Protein 5.1 G/DL (6.4-8.2) L Albumin 1.3 G/DL (3.4-5.0) L Globulin 3.8 g/dL Albumin/Globulin Ratio 0.3 (1.0-2.7) L Current Medications Medications (Trade) Dose Ordered Sig/Clyde Route PRN Reason Start Time Stop Time Status Last Admin Dose Admin Acetaminophen (Tylenol) 650 mg Q4H PRN ORAL Mild Pain/Temp > 100.5 01/05/19 18:23 02/04/19 18:22 01/12/19 02:05 Chlorhexidine Gluconate (Sharmila-Hex 2%) 1 applic DAILY@1999 TOPIC 01/05/19 20:00 02/01/19 19:59 01/13/19 21:18 Dextrose (Dextrose 50%) 25 ml Q30M PRN IV Hypoglycemia 01/05/19 18:30 01/28/19 16:29 Dextrose (Dextrose 50%) 50 ml Q30M PRN IV Hypoglycemia 01/05/19 18:30 01/28/19 16:29 Lactulose (Cephulac) 30 gm QID ORAL 01/13/19 13:00 02/01/19 08:59 01/14/19 20:42 Midodrine (Pro-Amatine) 10 mg THREE TIMES A DAY ORAL 01/13/19 10:11 02/01/19 12:59 01/14/19 18:58 Ondansetron HCl (Zofran) 4 mg Q6H PRN IVP Nausea & Vomiting 01/05/19 18:25 02/04/19 18:24 Pantoprazole (Protonix) 40 mg BID ORAL 01/06/19 09:00 01/28/19 17:59 01/14/19 18:57 Piperacillin Sod/ Tazobactam Sod 3.375 gm/Sodium Chloride 110 ml @ 27.5 mls/hr EVERY 8 HOURS IVPB 01/07/19 14:00 01/16/19 13:59 01/15/19 05:49 Potassium Chloride (K-Dur) 40 meq DAILY ORAL 01/15/19 09:00 02/14/19 08:59 Rifaximin (Xifaxan) 550 mg EVERY 12 HOURS ORAL 01/09/19 16:00 01/16/19 15:59 01/14/19 20:38 Spironolactone (Aldactone) 25 mg DAILY ORAL 01/15/19 09:00 02/14/19 08:59 Devon Kingsley MD Jan 15, 2019 09:52
--- NOTE | 2019-01-15 10:30 | NUR ---
NURSE NOTES: Dr. Martinez, Dr. Schneider, Dr. Kingsley, Dr. Bautista, and Dr. Rich notified of critical WBC level 25.8, no new orders received.
[2019-01-15 10:42] LABS: PHOSPHORUS 3.1 MG/DL (2.5-4.9)
--- NOTE | 2019-01-15 10:50 | NUR ---
NURSE NOTES: Dr. Martinez and Dr. Schneider notified of BP 75/53 mmHg and Aldactone held. Rechecked at 1050 94/59 mmHg. Aldactone administered. Will continue to monitor.
[2019-01-15] MEDS: Spironolactone 25mg tab ORAL SCH (11:02)
--- NOTE | 2019-01-15 11:57 | Nephrology Progress Note ---
Assessment/Plan Problem List: (1) Alcoholic liver disease (2) Anemia (3) Electrolyte disorder (4) Jaundice Assessment Acute Alcoholic Gastritis / Encephalopathy - Intoxication Alcoholic Hepatitis Anemia Hypokalemia Psych disease Plan start PO KCL and Aldactone labs noted K Phos IV as needed PO steroids on hold by GI has PICC now K and Mag and Phos supplement as needed Monitor lytes / Lfts per orders Subjective ROS Limited/Unobtainable: No Constitutional: Reports: malaise Objective Objective Last 24 Hour Vital Signs Date Time Temp Pulse Resp B/P (MAP) Pulse Ox O2 Delivery O2 Flow Rate FiO2 01/15/19 04:00 97.9 82 16 88/56 (67) 100 01/15/19 00:00 98.2 97 18 82/51 (61) 100 01/14/19 21:00 Nasal Cannula 2.0 01/14/19 20:00 98.1 92 18 89/52 (64) 93 01/14/19 17:30 Nasal Cannula 2.0 01/14/19 16:00 98.0 106 16 84/51 (62) 95 01/14/19 12:00 97.2 102 16 89/58 (68) 94 Intake and Output 01/14/19 01/15/19 19:00 07:00 Intake Total 773 ml 240 ml Balance 773 ml 240 ml Intake Oral 773 ml 240 ml # Voids 2 2 # Bowel Movements 2 3 Laboratory Tests 01/15/19 04:50: White Blood Count 25.8*H, Red Blood Count 3.37L, Hemoglobin 10.7L, Hematocrit 33.5L, Mean Corpuscular Volume 100H, Mean Corpuscular Hemoglobin 31.8H, Mean Corpuscular Hemoglobin Concent 31.9L, Red Cell Distribution Width 15.9H, Platelet Count 308, Mean Platelet Volume 7.1, Neutrophils (%) (Auto) , Lymphocytes (%) (Auto) , Monocytes (%) (Auto) , Eosinophils (%) (Auto) , Basophils (%) (Auto) , Differential Total Cells Counted 100, Neutrophils % ( Manual) 88H, Lymphocytes % (Manual) 4L, Monocytes % (Manual) 6, Eosinophils % ( Manual) 1, Basophils % (Manual) 0, Band Neutrophils 1, Platelet Estimate Adequate, Platelet Morphology Normal, Hypochromasia 1+, Anisocytosis 1+, Macrocytosis 1+, Prothrombin Time 16.9H, Prothromb Time International Ratio 1.6H 01/15/19 07:50: Sodium Level 142, Potassium Level 3.8, Chloride Level 109H, Carbon Dioxide Level 18L, Anion Gap 15, Blood Urea Nitrogen 32H, Creatinine 1.6H, Estimat Glomerular Filtration Rate 44.9, Glucose Level 122H, Calcium Level 7.5L, Phosphorus Level 3.1, Magnesium Level 2.1, Total Bilirubin 18.8H, Direct Bilirubin 15.9H, Aspartate Amino Transf (AST/SGOT) 127H, Alanine Aminotransferase (ALT/SGPT) 24, Alkaline Phosphatase 562H, Total Protein 5.1L, Albumin 1.3L, Globulin 3.8, Albumin/Globulin Ratio 0.3L Height (Feet): 5 Height (Inches): 5.00 Weight (Pounds): 195 General Appearance: no apparent distress Objective no change Leonard Bautista MD Jan 15, 2019 11:57
[2019-01-15 12:00] VITALS: BP 94/59
--- NOTE | 2019-01-15 14:50 | Pulmonology Progress Note ---
Assessment/Plan Problems: (1) End stage liver disease (2) Acute upper GI bleed (3) Acute alcoholic intoxication (4) Coagulopathy (5) Psychosis (6) Acute encephalopathy (7) Alcoholic liver disease Assessment/Plan Ct of head reviewed, no acute bleeding s/p paracentesis, 7 liters removed wbc increasing, blood smear by pathologist. continue abx symptomatic treatment lactulose f/u Ammonia level. Subjective ROS Limited/Unobtainable: No Constitutional: Reports: no symptoms HEENT: Repors: no symptoms Allergies: Coded Allergies: No Known Allergies (Verified , 10/22/06) Objective Last 24 Hour Vital Signs Date Time Temp Pulse Resp B/P (MAP) Pulse Ox O2 Delivery O2 Flow Rate FiO2 01/15/19 04:00 97.9 82 16 88/56 (67) 100 01/15/19 00:00 98.2 97 18 82/51 (61) 100 01/14/19 21:00 Nasal Cannula 2.0 01/14/19 20:00 98.1 92 18 89/52 (64) 93 01/14/19 17:30 Nasal Cannula 2.0 01/14/19 16:00 98.0 106 16 84/51 (62) 95 Intake and Output 01/14/19 01/15/19 19:00 07:00 Intake Total 773 ml 240 ml Balance 773 ml 240 ml Intake Oral 773 ml 240 ml # Voids 2 2 # Bowel Movements 2 3 Objective General Appearance: cachectic HEENT: atraumatic Respiratory/Chest: chest wall non-tender, normal breath sounds Breasts: no masses Cardiovascular: normal rate Abdomen: soft, non tender, ascites Genitourinary: normal external genitalia Extremities: no clubbing Laboratory Tests 01/15/19 04:50: White Blood Count 25.8*H, Red Blood Count 3.37L, Hemoglobin 10.7L, Hematocrit 33.5L, Mean Corpuscular Volume 100H, Mean Corpuscular Hemoglobin 31.8H, Mean Corpuscular Hemoglobin Concent 31.9L, Red Cell Distribution Width 15.9H, Platelet Count 308, Mean Platelet Volume 7.1, Neutrophils (%) (Auto) , Lymphocytes (%) (Auto) , Monocytes (%) (Auto) , Eosinophils (%) (Auto) , Basophils (%) (Auto) , Differential Total Cells Counted 100, Neutrophils % ( Manual) 88H, Lymphocytes % (Manual) 4L, Monocytes % (Manual) 6, Eosinophils % ( Manual) 1, Basophils % (Manual) 0, Band Neutrophils 1, Platelet Estimate Adequate, Platelet Morphology Normal, Hypochromasia 1+, Anisocytosis 1+, Macrocytosis 1+, Prothrombin Time 16.9H, Prothromb Time International Ratio 1.6H 01/15/19 07:50: Sodium Level 142, Potassium Level 3.8, Chloride Level 109H, Carbon Dioxide Level 18L, Anion Gap 15, Blood Urea Nitrogen 32H, Creatinine 1.6H, Estimat Glomerular Filtration Rate 44.9, Glucose Level 122H, Calcium Level 7.5L, Phosphorus Level 3.1, Magnesium Level 2.1, Total Bilirubin 18.8H, Direct Bilirubin 15.9H, Aspartate Amino Transf (AST/SGOT) 127H, Alanine Aminotransferase (ALT/SGPT) 24, Alkaline Phosphatase 562H, Total Protein 5.1L, Albumin 1.3L, Globulin 3.8, Albumin/Globulin Ratio 0.3L Current Medications Medications (Trade) Dose Ordered Sig/Clyde Route PRN Reason Start Time Stop Time Status Last Admin Dose Admin Acetaminophen (Tylenol) 650 mg Q4H PRN ORAL Mild Pain/Temp > 100.5 01/05/19 18:23 02/04/19 18:22 01/15/19 11:19 Chlorhexidine Gluconate (Sharmila-Hex 2%) 1 applic DAILY@1999 TOPIC 01/05/19 20:00 02/01/19 19:59 01/13/19 21:18 Dextrose (Dextrose 50%) 25 ml Q30M PRN IV Hypoglycemia 01/05/19 18:30 01/28/19 16:29 Dextrose (Dextrose 50%) 50 ml Q30M PRN IV Hypoglycemia 01/05/19 18:30 01/28/19 16:29 Lactulose (Cephulac) 30 gm QID ORAL 01/13/19 13:00 02/01/19 08:59 01/15/19 14:28 Midodrine (Pro-Amatine) 10 mg THREE TIMES A DAY ORAL 01/13/19 10:11 02/01/19 12:59 01/15/19 14:27 Ondansetron HCl (Zofran) 4 mg Q6H PRN IVP Nausea & Vomiting 01/05/19 18:25 02/04/19 18:24 Pantoprazole (Protonix) 40 mg BID ORAL 01/06/19 09:00 01/28/19 17:59 01/15/19 09:51 Piperacillin Sod/ Tazobactam Sod 3.375 gm/Sodium Chloride 110 ml @ 27.5 mls/hr EVERY 8 HOURS IVPB 01/15/19 14:00 01/17/19 05:59 01/15/19 14:28 Potassium Chloride (K-Dur) 20 meq DAILY ORAL 01/16/19 09:00 02/14/19 08:59 Rifaximin (Xifaxan) 550 mg EVERY 12 HOURS ORAL 01/09/19 16:00 01/16/19 15:59 01/15/19 09:51 Spironolactone (Aldactone) 25 mg DAILY ORAL 01/15/19 09:00 02/14/19 08:59 01/15/19 11:02 Marion Schneider MD Jan 15, 2019 14:50
[2019-01-15 16:00] VITALS: BP 80/56
--- NOTE | 2019-01-15 16:36 | General Progress Note ---
Assessment/Plan Problem List: (1) Abdominal pain ICD Codes: R10.9 - Unspecified abdominal pain SNOMED: 02215553 (2) Anemia ICD Codes: D64.9 - Anemia, unspecified SNOMED: 809237588 (3) Alcoholic liver disease ICD Codes: K70.9 - Alcoholic liver disease, unspecified SNOMED: 46019069 (4) Acute alcoholic gastritis ICD Codes: K29.20 - Alcoholic gastritis without bleeding SNOMED: 9173639 Qualifiers: Qualified Codes: K29.20 - Alcoholic gastritis without bleeding Status: unchanged Assessment/Plan: detox gi f/u cbc bmp dc plan snf if clear Subjective Constitutional: Reports: weakness Allergies: Coded Allergies: No Known Allergies (Verified , 10/22/06) All Systems: reviewed and negative except above Subjective o2nc sleepy calm Objective Last 24 Hour Vital Signs Date Time Temp Pulse Resp B/P (MAP) Pulse Ox O2 Delivery O2 Flow Rate FiO2 01/15/19 04:00 97.9 82 16 88/56 (67) 100 01/15/19 00:00 98.2 97 18 82/51 (61) 100 01/14/19 21:00 Nasal Cannula 2.0 01/14/19 20:00 98.1 92 18 89/52 (64) 93 01/14/19 17:30 Nasal Cannula 2.0 Intake and Output 01/14/19 01/15/19 19:00 07:00 Intake Total 773 ml 240 ml Balance 773 ml 240 ml Intake Oral 773 ml 240 ml # Voids 2 2 # Bowel Movements 2 3 Laboratory Tests 01/15/19 04:50: White Blood Count 25.8*H, Red Blood Count 3.37L, Hemoglobin 10.7L, Hematocrit 33.5L, Mean Corpuscular Volume 100H, Mean Corpuscular Hemoglobin 31.8H, Mean Corpuscular Hemoglobin Concent 31.9L, Red Cell Distribution Width 15.9H, Platelet Count 308, Mean Platelet Volume 7.1, Neutrophils (%) (Auto) , Lymphocytes (%) (Auto) , Monocytes (%) (Auto) , Eosinophils (%) (Auto) , Basophils (%) (Auto) , Differential Total Cells Counted 100, Neutrophils % ( Manual) 88H, Lymphocytes % (Manual) 4L, Monocytes % (Manual) 6, Eosinophils % ( Manual) 1, Basophils % (Manual) 0, Band Neutrophils 1, Platelet Estimate Adequate, Platelet Morphology Normal, Hypochromasia 1+, Anisocytosis 1+, Macrocytosis 1+, Prothrombin Time 16.9H, Prothromb Time International Ratio 1.6H 01/15/19 07:50: Sodium Level 142, Potassium Level 3.8, Chloride Level 109H, Carbon Dioxide Level 18L, Anion Gap 15, Blood Urea Nitrogen 32H, Creatinine 1.6H, Estimat Glomerular Filtration Rate 44.9, Glucose Level 122H, Calcium Level 7.5L, Phosphorus Level 3.1, Magnesium Level 2.1, Total Bilirubin 18.8H, Direct Bilirubin 15.9H, Aspartate Amino Transf (AST/SGOT) 127H, Alanine Aminotransferase (ALT/SGPT) 24, Alkaline Phosphatase 562H, Total Protein 5.1L, Albumin 1.3L, Globulin 3.8, Albumin/Globulin Ratio 0.3L Height (Feet): 5 Height (Inches): 5.00 Weight (Pounds): 195 General Appearance: lethargic EENT: normal ENT inspection Neck: normal alignment Cardiovascular: normal peripheral pulses, normal rate, regular rhythm Respiratory/Chest: chest wall non-tender, lungs clear, normal breath sounds Abdomen: normal bowel sounds, soft, distended Extremities: normal inspection Edema: no edema noted Arm (L), no edema noted Arm (R), no edema noted Leg (L), no edema noted Leg (R), no edema noted Pedal (L), no edema noted Pedal (R), no edema noted Generalized Neurologic: motor weakness Skin: normal pigmentation, warm/dry Corwin Martinez DO Jan 15, 2019 16:36
--- NOTE | 2019-01-15 17:02 | NUR ---
CASE MANAGEMENT:REVIEW 01/15/19 SI: ACUTE ENCEPHALOPATHY ALCOHOLIC LIVER DISEASE. S/P PARACENTESIS ~ 7.4L REMOVED T 97.9 HR 82 RR 16 B/P 88/56 SATS 100% ON 2L/NC WBC 25.8 CL 109 CO2 18 BUN 32 CR 1.6 GLU 122 CA 7.5 TBILI 18.8 DBILI 15.9 AST 127 ALP 562 IS: IV ZOSYN Q8HRS RIFAXIMIN PO Q12 MIDODRINE PO TID LACTULOSE PO TID PROTONIX PO BID :MED/SURG STATUS 3 [facility]
--- NOTE | 2019-01-15 19:15 | NUR ---
HAND-OFF: Report given to Jd SOUTH.
--- NOTE | 2019-01-15 19:25 | NUR ---
NURSE NOTES: Report taken from BRANNON Becker. Patient is awake and in bed, sister at bedside, she has been helping with some of his daily activities. A&Ox3, patient continually states that he wants to , does not know where he is a times. No signs of distress on 2L NC. No complaints of pain. PICC line not inserted fully, both lines patent, MD aware of PICC positioning, antibiotics ordered. Skin is c/d/i, continue to move patient Q2. Patient skin and eyes are jaundiced due to condition. Continue to talk with patient calmly and listen, patient responds better when presented with an attentive nature. Bed in lowest position, call light within reach.
[2019-01-15 20:00] VITALS: BP 88/54
[2019-01-15] MEDS: Dyna-Hex 2% Top Sol 2oz TOPIC SCH (20:00)
--- NOTE | 2019-01-15 23:59 | Neurology Progress Note ---
Interim History Interim History ROS Limited/Unobtainable: No Complaints: AMS Events: This visit was performed on January 15, [address] Dee. Interim History Patient remains lethargic and confused with intermittent periods of increased lucidity. Objective Physical Exam Last Vital Signs Date Time Temp Pulse Resp B/P (MAP) Pulse Ox O2 Delivery O2 Flow Rate FiO2 01/15/19 20:00 97.5 95 17 88/54 (65) 99 01/15/19 13:00 Nasal Cannula 2.0 Laboratory Tests Test 01/15/19 04:50 01/15/19 07:50 White Blood Count 25.8 K/UL (4.8-10.8) *H Red Blood Count 3.37 M/UL (4.70-6.10) L Hemoglobin 10.7 G/DL (14.2-18.0) L Hematocrit 33.5 % (42.0-52.0) L Mean Corpuscular Volume 100 FL (80-99) H Mean Corpuscular Hemoglobin 31.8 PG (27.0-31.0) H Mean Corpuscular Hemoglobin Concent 31.9 G/DL (32.0-36.0) L Red Cell Distribution Width 15.9 % (11.6-14.8) H Platelet Count 308 K/UL (150-450) Mean Platelet Volume 7.1 FL (6.5-10.1) Neutrophils (%) (Auto) % (45.0-75.0) Lymphocytes (%) (Auto) % (20.0-45.0) Monocytes (%) (Auto) % (1.0-10.0) Eosinophils (%) (Auto) % (0.0-3.0) Basophils (%) (Auto) % (0.0-2.0) Differential Total Cells Counted 100 Neutrophils % (Manual) 88 % (45-75) H Lymphocytes % (Manual) 4 % (20-45) L Monocytes % (Manual) 6 % (1-10) Eosinophils % (Manual) 1 % (0-3) Basophils % (Manual) 0 % (0-2) Band Neutrophils 1 % (0-8) Platelet Estimate Adequate Platelet Morphology Normal Hypochromasia 1+ Anisocytosis 1+ Macrocytosis 1+ Prothrombin Time 16.9 SEC (9.30-11.50) H Prothromb Time International Ratio 1.6 (0.9-1.1) H Sodium Level 142 MMOL/L (136-145) Potassium Level 3.8 MMOL/L (3.5-5.1) Chloride Level 109 MMOL/L (98-107) H Carbon Dioxide Level 18 MMOL/L (21-32) L Anion Gap 15 mmol/L (5-15) Blood Urea Nitrogen 32 mg/dL (7-18) H Creatinine 1.6 MG/DL (0.55-1.30) H Estimat Glomerular Filtration Rate 44.9 mL/min (>60) Glucose Level 122 MG/DL (74-106) H Calcium Level 7.5 MG/DL (8.5-10.1) L Phosphorus Level 3.1 MG/DL (2.5-4.9) Magnesium Level 2.1 MG/DL (1.8-2.4) Total Bilirubin 18.8 MG/DL (0.2-1.0) H Direct Bilirubin 15.9 MG/DL (0.0-0.3) H Aspartate Amino Transf (AST/SGOT) 127 U/L (15-37) H Alanine Aminotransferase (ALT/SGPT) 24 U/L (12-78) Alkaline Phosphatase 562 U/L (46-116) H Total Protein 5.1 G/DL (6.4-8.2) L Albumin 1.3 G/DL (3.4-5.0) L Globulin 3.8 g/dL Albumin/Globulin Ratio 0.3 (1.0-2.7) L General: well developed, other Head: other Neck: no rigidity EENT: other - Visible right nasal polyp, skin tag, lesion - Neurologic Exam Mental Status: awake, alert, other Speech: other Language: other Cranial Nerve II: fundus normal, visual osorio, other Cranial Nerves III, IV, : PERRLA, EOMI, other Cranial Nerve V: normal facial sensations, temporales function normal, other Cranial Nerve VII: no facial asymmetry, other Cranial Nerve VIII: normal hearing, other Cranial Nerve IX: normal palate elevation, other Cranial Nerve X: no voice hoarseness, other Cranial Nerve XI: SCM symmetric, other Cranial Nerve XII: tongue midline, other Motor System: no involuntary movement, other Sensory: normal pinprick, normal light touch, normal position sense, normal graphesthesia, other Coordination: other - More appropriately verbal in conversation at times with depressed affect and difficulty following instructions during examination. Deep Tendon Reflexes: 1+ bicep (L), 1+ bicep (R), 1+ tricep (L), 1+ tricep (R) , 1+ brachioradialis (L), 1+ brachioradialis (R), 1+ knee (L), 1+ knee (R), 1+ ankle (L), 1+ ankle (R) Stance: other - Patient remains weak throughout all extremities with non focal exam. He is more appropriate in conversation today but remains non focal and encephalopathic Gait: other Objective Patient is alert and oriented to circumstances with intermittent episodes of agitation/ confusion. He remains non focal and weak throughout Impression/Recommendations Problems: (1) Acute upper GI bleed (2) Fecal impaction in rectum (3) Esophagitis (4) Alcoholic liver disease (5) Elevated LFTs (6) Acute alcoholic gastritis (7) Psychosis (8) Acute alcoholic intoxication (9) Acute encephalopathy (10) Hypocalcemia Status: not improved, unchanged, deteriorating Recommendations Oral feeding PRN all day given nutritional status and care goals Awaiting hospice D/C Stable for D/C from a neurological perspective but we will continue to monitor. Anika Pettit N.P. Jan 15, 2019 23:59
[2019-01-16] VITALS: BP 81/51
[2019-01-16 04:00] VITALS: BP 81/50
[2019-01-16] MEDS: Piperacillin/Tazobactam 3.375 GM in NS 110 ML IVPB SCH (05:50)
[2019-01-16 06:40] LABS: HEMATOCRIT 28.4 % (42.0-52.0); HEMOGLOBIN 9.2 G/DL (14.2-18.0); MEAN CORPUSCULAR VOLUME 99 FL (80-99); PLATELET COUNT 296 K/UL (150-450); RED BLOOD COUNT 2.87 M/UL (4.70-6.10)
[2019-01-16 06:50] LABS: WHITE BLOOD COUNT 27.3 K/UL (4.8-10.8)
[2019-01-16 07:01] LABS: ALANINE AMINOTRANSFERASE 20 U/L (12-78); ALBUMIN 1.1 G/DL (3.4-5.0); ALBUMIN/GLOBULIN RATIO 0.3 (1.0-2.7); ALKALINE PHOSPHATASE 495 U/L (46-116); ANION GAP 13 mmol/L (5-15); ASPARTATE AMINO TRANSFERASE 110 U/L (15-37); BILIRUBIN,TOTAL 17.1 MG/DL (0.2-1.0); BLOOD UREA NITROGEN 37 mg/dL (7-18); CALCIUM 7.1 MG/DL (8.5-10.1); CARBON DIOXIDE 19 MMOL/L (21-32); CHLORIDE 107 MMOL/L (98-107); CREATININE 2.1 MG/DL (0.55-1.30); POTASSIUM 3.5 MMOL/L (3.5-5.1); SODIUM 139 MMOL/L (136-145)
--- NOTE | 2019-01-16 07:29 | NUR ---
HAND-OFF: Report given to BRANNON Randall. Patient is awake and up eating breakfast, still very negative thoughts and flat affect. VS stable.
--- NOTE | 2019-01-16 07:45 | NUR ---
NURSE NOTES: Received report from BRANNON Miles. Patient is a/o x2 having breakfast. No respiratory distress noted. TITO PICC line is not fully inserted. MD is aware. Denies any pain at this time. Skin is dry/intact. Bed alarm is on. Bed in lowest position, call light within reach. Will continue to monitor.
[2019-01-16 08:00] VITALS: BP 80/52
--- NOTE | 2019-01-16 08:30 | NUR ---
NURSE NOTES: BP 80/52, IN [address] Kline, Dr. Schneider. No new order.
[2019-01-16] MEDS: Midodrine 10mg tab ORAL SCH (08:37)
[2019-01-16] MEDS: Lactulose 20gm/30ml UDC ORAL SCH (08:37)
[2019-01-16] MEDS: Spironolactone 25mg tab ORAL SCH (08:37)
--- NOTE | 2019-01-16 09:57 | NUR ---
CASE MANAGEMENT:REVIEW 01/16/19 SI: ACUTE ENCEPHALOPATHY ACUTE ALCOHOLIC GASTRITIS. ESOPHAGITIS 98.1 96 20 80/52 91% ON 2L/NC WBC+27.3 BUN+37 CR+2.1 TBILI+17.1 DBILI+14.0 IS: MIDODRINE PO TID IV ZOSYN Q8HRS K-DUR PO QD LACTULOSE PO QID RIFAXIMIN PO Q12 PROTONIX PO BID : MED/SURG STATUS 3 [facility] DCP: [facility]
--- NOTE | 2019-01-16 10:30 | NUR ---
Social Service Note ELENA spoke with Malinda [phone] (sister/conservator) and addressed patient's treatment plan of care and declining health. Sister requesting to change focus of care to comfort care. Sister would like to speak with Dr. Schneider. ELENA provided support. Dr. Schneider will speak with sister.
--- NOTE | 2019-01-16 11:00 | NUR ---
PT NOTE Attempted to see patient for PT treatment. Patient declining to participate with PT treatment, c/o abdominal pain, states he is unable to move his legs. Will re-attempt later as schedule permits, Prakash SOUTH notified.
[2019-01-16] MEDS ORDERED: PCA Morphine 1mg/ml 30 ML IV SCH (11:51)
[2019-01-16] MEDS ORDERED: Rate Change Narcotic Drip MISC PRN (12:00)
[2019-01-16] MEDS ORDERED: Morphine Sulfate 4mg/ml Inj (IV USE ONLY) IV PRN (12:00)
--- NOTE | 2019-01-16 12:01 | Pulmonology Progress Note ---
Assessment/Plan Problems: (1) End stage liver disease (2) Acute upper GI bleed (3) Acute alcoholic intoxication (4) Coagulopathy (5) Psychosis (6) Acute encephalopathy (7) Alcoholic liver disease Assessment/Plan I talked to pts sister Malinda. I informed her abut worsening conditions of Barry. His Bilirubin is 18 now and wbc keeps rising as well. I suggested morphine drip for better control of symptoms. she knows that the is imminent. She will inform the rest of the family members. All the physicians informed about morphin drip and they all agreed. Subjective ROS Limited/Unobtainable: No Allergies: Coded Allergies: No Known Allergies (Verified , 10/22/06) Objective Last 24 Hour Vital Signs Date Time Temp Pulse Resp B/P (MAP) Pulse Ox O2 Delivery O2 Flow Rate FiO2 01/16/19 09:00 Nasal Cannula 2.0 01/16/19 08:00 98.1 96 20 80/52 (61) 91 01/16/19 04:00 98.8 93 18 81/50 (60) 94 01/16/19 00:00 98.2 97 18 81/51 (61) 95 01/15/19 21:00 Nasal Cannula 2.0 01/15/19 20:00 97.5 95 17 88/54 (65) 99 01/15/19 16:00 97.0 87 18 80/56 (64) 93 01/15/19 13:00 Nasal Cannula 2.0 01/15/19 12:00 97.9 99 16 94/59 (71) 92 Intake and Output 01/15/19 01/16/19 19:00 07:00 Intake Total 827 ml 320 ml Balance 827 ml 320 ml Intake Oral 827 ml 320 ml # Voids 2 2 # Bowel Movements 2 3 Objective General Appearance: cachectic HEENT: atraumatic Respiratory/Chest: chest wall non-tender, normal breath sounds Breasts: no masses Cardiovascular: normal rate Abdomen: soft, non tender, ascites Genitourinary: normal external genitalia Extremities: no clubbing Laboratory Tests 01/16/19 05:00: White Blood Count 27.3*H, Red Blood Count 2.87L, Hemoglobin 9.2L, Hematocrit 28.4L, Mean Corpuscular Volume 99, Mean Corpuscular Hemoglobin 32.0H, Mean Corpuscular Hemoglobin Concent 32.4, Red Cell Distribution Width 16.0H, Platelet Count 296, Mean Platelet Volume 7.2, Neutrophils (%) (Auto) , Lymphocytes (%) (Auto) , Monocytes (%) (Auto) , Eosinophils (%) (Auto) , Basophils (%) (Auto) , Differential Total Cells Counted 100, Neutrophils % ( Manual) 89H, Lymphocytes % (Manual) 5L, Monocytes % (Manual) 5, Eosinophils % ( Manual) 1, Basophils % (Manual) 0, Band Neutrophils 0, Platelet Estimate Adequate, Platelet Morphology Normal, Hypochromasia 1+, Anisocytosis 1+, Erythrocyte Sedimentation Rate 67H, Sodium Level 139, Potassium Level 3.5, Chloride Level 107, Carbon Dioxide Level 19L, Anion Gap 13, Blood Urea Nitrogen 37H, Creatinine 2.1H, Estimat Glomerular Filtration Rate 32.8, Glucose Level 127H, Calcium Level 7.1L, Phosphorus Level 3.0, Magnesium Level 2.0, Total Bilirubin 17.1H, Direct Bilirubin 14.0H, Aspartate Amino Transf (AST/SGOT) 110H , Alanine Aminotransferase (ALT/SGPT) 20, Alkaline Phosphatase 495H, C-Reactive Protein, Quantitative 11.1H, Total Protein 4.4L, Albumin 1.1L, Globulin 3.3, Albumin/Globulin Ratio 0.3L Current Medications Medications (Trade) Dose Ordered Sig/Clyde Route PRN Reason Start Time Stop Time Status Last Admin Dose Admin Chlorhexidine Gluconate (Sharmila-Hex 2%) 1 applic DAILY@1999 TOPIC 01/05/19 20:00 02/01/19 19:59 01/15/19 20:00 Dextrose (Dextrose 50%) 50 ml Q30M PRN IV Hypoglycemia 01/05/19 18:30 01/28/19 16:29 Miscellaneous Medication (Narcotic Drip Rate Change) 1 ea DAILY PRN MISC . 01/16/19 12:00 02/15/19 11:59 Miscellaneous Medication (Narcotic Shift Volume) 1 ea Q8HR@, MISC 01/16/19 15:00 02/15/19 14:59 Morphine Sulfate 30 ml @ 5 mls/hr SOFTWARE SUPPORT REPRESENTATIVE Protocol IV 01/16/19 12:00 01/18/19 11:50 Morphine Sulfate (Morphine Sulfate) 4 mg Q3H PRN IV Severe Pain (Pain Scale 7-10) 01/16/19 12:00 01/18/19 11:59 Ondansetron HCl (Zofran) 4 mg Q6H PRN IVP Nausea & Vomiting 01/05/19 18:25 02/04/19 18:24 Marion Schneider MD Jan 16, 2019 12:01
--- NOTE | 2019-01-16 12:08 | NUR ---
NURSE NOTES: Asked Dr. Schneider if RN has to speak to family regarding comfort care. Dr. Schneider stat He already spoke to Malinda, sister.
--- NOTE | 2019-01-16 13:14 | General Progress Note ---
Assessment/Plan Problem List: (1) Abdominal pain ICD Codes: R10.9 - Unspecified abdominal pain SNOMED: 09269196 (2) Anemia ICD Codes: D64.9 - Anemia, unspecified SNOMED: 092884830 (3) Alcoholic liver disease ICD Codes: K70.9 - Alcoholic liver disease, unspecified SNOMED: 02273277 (4) Acute alcoholic gastritis ICD Codes: K29.20 - Alcoholic gastritis without bleeding SNOMED: 9017503 Qualifiers: Qualified Codes: K29.20 - Alcoholic gastritis without bleeding Status: unchanged Assessment/Plan: detox gi f/u cbc bmp dc plan comfort snf if clear Subjective Constitutional: Reports: weakness Allergies: Coded Allergies: No Known Allergies (Verified , 10/22/06) All Systems: reviewed and negative except above Subjective o2nc sleepy calm Objective Last 24 Hour Vital Signs Date Time Temp Pulse Resp B/P (MAP) Pulse Ox O2 Delivery O2 Flow Rate FiO2 01/16/19 09:00 Nasal Cannula 2.0 01/16/19 08:00 98.1 96 20 80/52 (61) 91 01/16/19 04:00 98.8 93 18 81/50 (60) 94 01/16/19 00:00 98.2 97 18 81/51 (61) 95 01/15/19 21:00 Nasal Cannula 2.0 01/15/19 20:00 97.5 95 17 88/54 (65) 99 01/15/19 16:00 97.0 87 18 80/56 (64) 93 Intake and Output 01/15/19 01/16/19 19:00 07:00 Intake Total 827 ml 320 ml Balance 827 ml 320 ml Intake Oral 827 ml 320 ml # Voids 2 2 # Bowel Movements 2 3 Laboratory Tests 01/16/19 05:00: White Blood Count 27.3*H, Red Blood Count 2.87L, Hemoglobin 9.2L, Hematocrit 28.4L, Mean Corpuscular Volume 99, Mean Corpuscular Hemoglobin 32.0H, Mean Corpuscular Hemoglobin Concent 32.4, Red Cell Distribution Width 16.0H, Platelet Count 296, Mean Platelet Volume 7.2, Neutrophils (%) (Auto) , Lymphocytes (%) (Auto) , Monocytes (%) (Auto) , Eosinophils (%) (Auto) , Basophils (%) (Auto) , Differential Total Cells Counted 100, Neutrophils % ( Manual) 89H, Lymphocytes % (Manual) 5L, Monocytes % (Manual) 5, Eosinophils % ( Manual) 1, Basophils % (Manual) 0, Band Neutrophils 0, Platelet Estimate Adequate, Platelet Morphology Normal, Hypochromasia 1+, Anisocytosis 1+, Erythrocyte Sedimentation Rate 67H, Sodium Level 139, Potassium Level 3.5, Chloride Level 107, Carbon Dioxide Level 19L, Anion Gap 13, Blood Urea Nitrogen 37H, Creatinine 2.1H, Estimat Glomerular Filtration Rate 32.8, Glucose Level 127H, Calcium Level 7.1L, Phosphorus Level 3.0, Magnesium Level 2.0, Total Bilirubin 17.1H, Direct Bilirubin 14.0H, Aspartate Amino Transf (AST/SGOT) 110H , Alanine Aminotransferase (ALT/SGPT) 20, Alkaline Phosphatase 495H, C-Reactive Protein, Quantitative 11.1H, Total Protein 4.4L, Albumin 1.1L, Globulin 3.3, Albumin/Globulin Ratio 0.3L Height (Feet): 5 Height (Inches): 5.00 Weight (Pounds): 195 General Appearance: lethargic EENT: normal ENT inspection Neck: normal alignment Cardiovascular: normal peripheral pulses, normal rate, regular rhythm Respiratory/Chest: chest wall non-tender, lungs clear, normal breath sounds Abdomen: normal bowel sounds, soft, distended Extremities: normal inspection Edema: no edema noted Arm (L), no edema noted Arm (R), no edema noted Leg (L), no edema noted Leg (R), no edema noted Pedal (L), no edema noted Pedal (R), no edema noted Generalized Neurologic: motor weakness Skin: normal pigmentation, warm/dry Corwin Martinez DO Jan 16, 2019 13:14
--- NOTE | 2019-01-16 13:25 | Infectious Diseases Prog Note ---
Assessment/Plan Assessment/Plan 58 yo male with PMHx of EtOH abuse, Depression and anxiety, SI who presented to the ED on 12/29/18 with N/V and abdominal pain. Leukocytosis and single high temp- S/P Prednisone 01/09/19 Likely due to gastritis from EtOH need -MRCP : Very limited exam, as described. Normal caliber bile ducts without definite filling defects to suggest choledocholithiasis Cholelithiasis. Gallbladder wall thickening, also described on prior sonogram. Most likely on the basis of hepatocellular derangement but the possibility of acute cholecystitis should also be considered. Ascites. Abnormal hepatic morphology, also previously described, suggestive of cirrhotic change -Abd US: Hepatomegaly. Coarsened hepatic echogenicity and surface nodularitysuggests cirrhosis. Ascites, not demonstrated previously. Cholelithiasis and gallbladder sludge, not evident previously. Gallbladder wall thickening and pericholecystic fluid, probably due to the hepatocellular derangements, but the possibility of acute cholecystitis should also be considered. Correlate with clinical findings, consider nuclear medicine hepatobiliary scan if clinically indicated. Negative for dilated bile ducts. Incidental finding small left renal cyst -CT abd/p: Chronic liver disease/cirrhosis with fatty infiltration, enlargement of the liver and stigmata of portal hypertension including ascites and splenomegaly, recanalized umbilical vein. Basilar atelectasis. Probable gallstones. Tiny bilateral renal hypodensities too small to characterize.Fecal impaction Cirrhosis EtOH abuse Hep A/B/C - Neg Paracentesis Cx 01/11/19 - Neg Depression and anxiety SI HIV (-) PLAN: - Patient was placed on comfort care, morphine drip started and antibiotics were discontinued -01/16 SP ZOsyn #10 - 01/08/19 S/P Levofloxacin #6 and Flagyl #6 - 01/03/19 S/P Zosyn #5 ID WILL SIGN OFF NOW. PLEASE CALL BACK IF NEEDED. Subjective Allergies: Coded Allergies: No Known Allergies (Verified , 10/22/06) Subjective afebrile leukocytosis worsening notified by dr Schneider, patient was started on morphine drip Objective Vital Signs Last 24 Hour Vital Signs Date Time Temp Pulse Resp B/P (MAP) Pulse Ox O2 Delivery O2 Flow Rate FiO2 01/16/19 09:00 Nasal Cannula 2.0 01/16/19 08:00 98.1 96 20 80/52 (61) 91 01/16/19 04:00 98.8 93 18 81/50 (60) 94 01/16/19 00:00 98.2 97 18 81/51 (61) 95 01/15/19 21:00 Nasal Cannula 2.0 01/15/19 20:00 97.5 95 17 88/54 (65) 99 01/15/19 16:00 97.0 87 18 80/56 (64) 93 Height (Feet): 5 Height (Inches): 5.00 Weight (Pounds): 195 Objective Gen: NAD HEENT: NCAT, MMM, EOMI, PERRL, No Oral lesion, no scleral icterus but blood shot NECK: full range of motion, supple, no meningismus, No LAD, No JVD LUNGS: CTAB, No W/C, No Accessory muscle use CARDS: RRR, S1, S2, No M/R/G, ABD: Soft, Epigastric pain, ND, No R/G, + BS, No HSM, No Masses : Deferred Ext: C/C/E, Pulses 2+ B/L (DP, Rad): NEURO: A/O x 4, Strength and Sensation Grossly intact PSYCH: Depressed SKIN: Warm/dry, No rashes Laboratory Tests Test 01/16/19 05:00 White Blood Count 27.3 K/UL (4.8-10.8) *H Red Blood Count 2.87 M/UL (4.70-6.10) L Hemoglobin 9.2 G/DL (14.2-18.0) L Hematocrit 28.4 % (42.0-52.0) L Mean Corpuscular Volume 99 FL (80-99) Mean Corpuscular Hemoglobin 32.0 PG (27.0-31.0) H Mean Corpuscular Hemoglobin Concent 32.4 G/DL (32.0-36.0) Red Cell Distribution Width 16.0 % (11.6-14.8) H Platelet Count 296 K/UL (150-450) Mean Platelet Volume 7.2 FL (6.5-10.1) Neutrophils (%) (Auto) % (45.0-75.0) Lymphocytes (%) (Auto) % (20.0-45.0) Monocytes (%) (Auto) % (1.0-10.0) Eosinophils (%) (Auto) % (0.0-3.0) Basophils (%) (Auto) % (0.0-2.0) Differential Total Cells Counted 100 Neutrophils % (Manual) 89 % (45-75) H Lymphocytes % (Manual) 5 % (20-45) L Monocytes % (Manual) 5 % (1-10) Eosinophils % (Manual) 1 % (0-3) Basophils % (Manual) 0 % (0-2) Band Neutrophils 0 % (0-8) Platelet Estimate Adequate Platelet Morphology Normal Hypochromasia 1+ Anisocytosis 1+ Erythrocyte Sedimentation Rate 67 MM/HR (0-20) H Sodium Level 139 MMOL/L (136-145) Potassium Level 3.5 MMOL/L (3.5-5.1) Chloride Level 107 MMOL/L (98-107) Carbon Dioxide Level 19 MMOL/L (21-32) L Anion Gap 13 mmol/L (5-15) Blood Urea Nitrogen 37 mg/dL (7-18) H Creatinine 2.1 MG/DL (0.55-1.30) H Estimat Glomerular Filtration Rate 32.8 mL/min (>60) Glucose Level 127 MG/DL (74-106) H Calcium Level 7.1 MG/DL (8.5-10.1) L Phosphorus Level 3.0 MG/DL (2.5-4.9) Magnesium Level 2.0 MG/DL (1.8-2.4) Total Bilirubin 17.1 MG/DL (0.2-1.0) H Direct Bilirubin 14.0 MG/DL (0.0-0.3) H Aspartate Amino Transf (AST/SGOT) 110 U/L (15-37) H Alanine Aminotransferase (ALT/SGPT) 20 U/L (12-78) Alkaline Phosphatase 495 U/L (46-116) H C-Reactive Protein, Quantitative 11.1 mg/dL (0.00-0.90) H Total Protein 4.4 G/DL (6.4-8.2) L Albumin 1.1 G/DL (3.4-5.0) L Globulin 3.3 g/dL Albumin/Globulin Ratio 0.3 (1.0-2.7) L Current Medications Medications (Trade) Dose Ordered Sig/Clyde Route PRN Reason Start Time Stop Time Status Last Admin Dose Admin Chlorhexidine Gluconate (Sharmila-Hex 2%) 1 applic DAILY@2000 TOPIC 01/05/19 20:00 02/01/19 19:59 01/15/19 20:00 Dextrose (Dextrose 50%) 50 ml Q30M PRN IV Hypoglycemia 01/05/19 18:30 01/28/19 16:29 Miscellaneous Medication (Narcotic Drip Rate Change) 1 ea DAILY PRN MISC . 01/16/19 12:00 02/15/19 11:59 Miscellaneous Medication (Narcotic Shift Volume) 1 ea Q8HR@,, MISC 01/16/19 15:00 02/15/19 14:59 Morphine Sulfate 30 ml @ 5 mls/hr OUTCOMES SPECIALIST Protocol IV 01/16/19 12:00 01/18/19 11:50 Morphine Sulfate (Morphine Sulfate) 4 mg Q3H PRN IV Severe Pain (Pain Scale 7-10) 01/16/19 12:00 01/18/19 11:59 Ondansetron HCl (Zofran) 4 mg Q6H PRN IVP Nausea & Vomiting 01/05/19 18:25 02/04/19 18:24 Carmen Berumen M.D. Jan 16, 2019 13:25
--- NOTE | 2019-01-16 13:28 | NUR ---
RD ASSESSMENT & RECOMMENDATIONS SEE CARE ACTIVITY FOR COMPLETE ASSESSMENT DAILY ESTIMATED NEEDS: Needs based on liver dysfunction/ 67.7kg adj 25-30 kcals/kg 0446-2744 total kcals 1-1.5 g protein/kg 68-102 g total protein Fluid per MD NUTRITION DIAGNOSIS: 1) Altered nutrition related lab values r/t end stage liver disease as evidenced by elev T bili (12.5-> 17.1), elev LFT's, renal labs trending up now (BUN 37, creat 2.1). CURRENT DIET: Cardiac - now soft easy chew PO DIET RECOMMENDATIONS: Liberalized Regular diet/ texture as tolerated ADDITIONAL RECOMMENDATIONS: - Per MD comfort care - Diet as tolerated - Ensure as tolerated - Snacks as tolerated . . .
--- NOTE | 2019-01-16 13:39 | Cardiac Electrophysiology PN ---
Assessment/Plan Assessment/Plan 1. Hypotension and sinus tach, Now comfort care. 2. Atypical Chest pain . EKG nonspecific ST-T wave abnormality. No UT. Echo EF 55% 3. Persistent hypokalemia. Corrected. 4. Leukocytosis. Abx and steroids DCed today 5. ETOH Cirrhosis with Bilirubin 14. FU GI. S/P 7 liters of paracentesis 01/11/19 6. Comfort Care . Will be started on morphine drip per RN and Dr Wyatt DEL REAL RN Subjective Subjective Very weak. RN at bedside.Was hypotensive and BP dropped to 80. CODE STATUS IS CHANGED NOW TO COMFORT CARE AND MORPHIN DRIP WILL BE STARTING SOON. Objective Last 24 Hour Vital Signs Date Time Temp Pulse Resp B/P (MAP) Pulse Ox O2 Delivery O2 Flow Rate FiO2 01/16/19 09:00 Nasal Cannula 2.0 01/16/19 08:00 98.1 96 20 80/52 (61) 91 01/16/19 04:00 98.8 93 18 81/50 (60) 94 01/16/19 00:00 98.2 97 18 81/51 (61) 95 01/15/19 21:00 Nasal Cannula 2.0 01/15/19 20:00 97.5 95 17 88/54 (65) 99 01/15/19 16:00 97.0 87 18 80/56 (64) 93 Intake and Output 01/15/19 01/16/19 19:00 07:00 Intake Total 827 ml 320 ml Balance 827 ml 320 ml Intake Oral 827 ml 320 ml # Voids 2 2 # Bowel Movements 2 3 Laboratory Tests Test 01/16/19 05:00 White Blood Count 27.3 K/UL (4.8-10.8) *H Red Blood Count 2.87 M/UL (4.70-6.10) L Hemoglobin 9.2 G/DL (14.2-18.0) L Hematocrit 28.4 % (42.0-52.0) L Mean Corpuscular Volume 99 FL (80-99) Mean Corpuscular Hemoglobin 32.0 PG (27.0-31.0) H Mean Corpuscular Hemoglobin Concent 32.4 G/DL (32.0-36.0) Red Cell Distribution Width 16.0 % (11.6-14.8) H Platelet Count 296 K/UL (150-450) Mean Platelet Volume 7.2 FL (6.5-10.1) Neutrophils (%) (Auto) % (45.0-75.0) Lymphocytes (%) (Auto) % (20.0-45.0) Monocytes (%) (Auto) % (1.0-10.0) Eosinophils (%) (Auto) % (0.0-3.0) Basophils (%) (Auto) % (0.0-2.0) Differential Total Cells Counted 100 Neutrophils % (Manual) 89 % (45-75) H Lymphocytes % (Manual) 5 % (20-45) L Monocytes % (Manual) 5 % (1-10) Eosinophils % (Manual) 1 % (0-3) Basophils % (Manual) 0 % (0-2) Band Neutrophils 0 % (0-8) Platelet Estimate Adequate Platelet Morphology Normal Hypochromasia 1+ Anisocytosis 1+ Erythrocyte Sedimentation Rate 67 MM/HR (0-20) H Sodium Level 139 MMOL/L (136-145) Potassium Level 3.5 MMOL/L (3.5-5.1) Chloride Level 107 MMOL/L (98-107) Carbon Dioxide Level 19 MMOL/L (21-32) L Anion Gap 13 mmol/L (5-15) Blood Urea Nitrogen 37 mg/dL (7-18) H Creatinine 2.1 MG/DL (0.55-1.30) H Estimat Glomerular Filtration Rate 32.8 mL/min (>60) Glucose Level 127 MG/DL (74-106) H Calcium Level 7.1 MG/DL (8.5-10.1) L Phosphorus Level 3.0 MG/DL (2.5-4.9) Magnesium Level 2.0 MG/DL (1.8-2.4) Total Bilirubin 17.1 MG/DL (0.2-1.0) H Direct Bilirubin 14.0 MG/DL (0.0-0.3) H Aspartate Amino Transf (AST/SGOT) 110 U/L (15-37) H Alanine Aminotransferase (ALT/SGPT) 20 U/L (12-78) Alkaline Phosphatase 495 U/L (46-116) H C-Reactive Protein, Quantitative 11.1 mg/dL (0.00-0.90) H Total Protein 4.4 G/DL (6.4-8.2) L Albumin 1.1 G/DL (3.4-5.0) L Globulin 3.3 g/dL Albumin/Globulin Ratio 0.3 (1.0-2.7) L Objective HEENT: Jaundiced sclera Cardiovascular: normal S1 and S2 and no murmur Respiratory/Chest: normal breath sounds, no respiratory distress Abdominal Exam: Disctended with ascites Extremities: 2 plus edema Franck Saeed MD Jan 16, 2019 13:39
[2019-01-16] MEDS: PCA Morphine 1mg/ml 30 ML IV SCH ×2 (15:05→20:55)
[2019-01-16] MEDS: Narcotic Shift Volume MISC SCH ×2 (15:21→20:39)
--- NOTE | 2019-01-16 17:02 | Nephrology Progress Note ---
Assessment/Plan Problem List: (1) Alcoholic liver disease (2) Anemia (3) Electrolyte disorder (4) Jaundice Assessment Acute Alcoholic Gastritis / Encephalopathy - Intoxication Alcoholic Hepatitis Anemia Hypokalemia Psych disease Plan now on MS drip and comfort care labs noted previously PO steroids on hold by GI has PICC Monitor lytes / Lfts per orders Subjective ROS Limited/Unobtainable: No Constitutional: Reports: malaise Objective Objective Last 24 Hour Vital Signs Date Time Temp Pulse Resp B/P (MAP) Pulse Ox O2 Delivery O2 Flow Rate FiO2 01/16/19 09:00 Nasal Cannula 2.0 01/16/19 08:00 98.1 96 20 80/52 (61) 91 01/16/19 04:00 98.8 93 18 81/50 (60) 94 01/16/19 00:00 98.2 97 18 81/51 (61) 95 01/15/19 21:00 Nasal Cannula 2.0 01/15/19 20:00 97.5 95 17 88/54 (65) 99 Intake and Output 01/15/19 01/16/19 19:00 07:00 Intake Total 827 ml 320 ml Balance 827 ml 320 ml Intake Oral 827 ml 320 ml # Voids 2 2 # Bowel Movements 2 3 Laboratory Tests 01/16/19 05:00: White Blood Count 27.3*H, Red Blood Count 2.87L, Hemoglobin 9.2L, Hematocrit 28.4L, Mean Corpuscular Volume 99, Mean Corpuscular Hemoglobin 32.0H, Mean Corpuscular Hemoglobin Concent 32.4, Red Cell Distribution Width 16.0H, Platelet Count 296, Mean Platelet Volume 7.2, Neutrophils (%) (Auto) , Lymphocytes (%) (Auto) , Monocytes (%) (Auto) , Eosinophils (%) (Auto) , Basophils (%) (Auto) , Differential Total Cells Counted 100, Neutrophils % ( Manual) 89H, Lymphocytes % (Manual) 5L, Monocytes % (Manual) 5, Eosinophils % ( Manual) 1, Basophils % (Manual) 0, Band Neutrophils 0, Platelet Estimate Adequate, Platelet Morphology Normal, Hypochromasia 1+, Anisocytosis 1+, Erythrocyte Sedimentation Rate 67H, Sodium Level 139, Potassium Level 3.5, Chloride Level 107, Carbon Dioxide Level 19L, Anion Gap 13, Blood Urea Nitrogen 37H, Creatinine 2.1H, Estimat Glomerular Filtration Rate 32.8, Glucose Level 127H, Calcium Level 7.1L, Phosphorus Level 3.0, Magnesium Level 2.0, Total Bilirubin 17.1H, Direct Bilirubin 14.0H, Aspartate Amino Transf (AST/SGOT) 110H , Alanine Aminotransferase (ALT/SGPT) 20, Alkaline Phosphatase 495H, C-Reactive Protein, Quantitative 11.1H, Total Protein 4.4L, Albumin 1.1L, Globulin 3.3, Albumin/Globulin Ratio 0.3L Height (Feet): 5 Height (Inches): 5.00 Weight (Pounds): 195 General Appearance: no apparent distress Cardiovascular: tachycardia Respiratory/Chest: decreased breath sounds Abdomen: distended Objective no change Leonard Bautista MD Jan 16, 2019 17:02
--- NOTE | 2019-01-16 19:26 | NUR ---
HAND-OFF: Report given to BRANNON Hathaway. Endorsed POC.
--- NOTE | 2019-01-16 19:27 | NUR ---
NURSE NOTES: Report taken from BRANNON Randall. Patient is currently on HEAD ORTHOPEDIC TEAM PHYSICIAN. Minor moan in response to name, family members at bedside. No signs of distress on 2L NC. PICC line withdrawn but still able to use for fluids. Continuous morphine running. Family is unhappy with the decision POA (sister) made and have been very emotional. Both charge and quality supervisor are aware of the situation. Bed in lowest position.
[2019-01-16] MEDS: Dyna-Hex 2% Top Sol 2oz TOPIC SCH (20:00)
[2019-01-17] MEDS: PCA Morphine 1mg/ml 30 ML IV SCH (03:24)
--- NOTE | 2019-01-17 03:28 | Neurology Progress Note ---
Interim History Interim History ROS Limited/Unobtainable: No Complaints: AMS Events: This visit was performed on January 17, [address] Dee. Interim History Patient transitioned to morphine infusion yesterday for hospice / comfort care. Objective Physical Exam Last Vital Signs Date Time Temp Pulse Resp B/P (MAP) Pulse Ox O2 Delivery O2 Flow Rate FiO2 01/16/19 21:00 Nasal Cannula 2.0 01/16/19 08:00 98.1 96 20 80/52 (61) 91 Laboratory Tests Test 01/16/19 05:00 White Blood Count 27.3 K/UL (4.8-10.8) *H Red Blood Count 2.87 M/UL (4.70-6.10) L Hemoglobin 9.2 G/DL (14.2-18.0) L Hematocrit 28.4 % (42.0-52.0) L Mean Corpuscular Volume 99 FL (80-99) Mean Corpuscular Hemoglobin 32.0 PG (27.0-31.0) H Mean Corpuscular Hemoglobin Concent 32.4 G/DL (32.0-36.0) Red Cell Distribution Width 16.0 % (11.6-14.8) H Platelet Count 296 K/UL (150-450) Mean Platelet Volume 7.2 FL (6.5-10.1) Neutrophils (%) (Auto) % (45.0-75.0) Lymphocytes (%) (Auto) % (20.0-45.0) Monocytes (%) (Auto) % (1.0-10.0) Eosinophils (%) (Auto) % (0.0-3.0) Basophils (%) (Auto) % (0.0-2.0) Differential Total Cells Counted 100 Neutrophils % (Manual) 89 % (45-75) H Lymphocytes % (Manual) 5 % (20-45) L Monocytes % (Manual) 5 % (1-10) Eosinophils % (Manual) 1 % (0-3) Basophils % (Manual) 0 % (0-2) Band Neutrophils 0 % (0-8) Platelet Estimate Adequate Platelet Morphology Normal Hypochromasia 1+ Anisocytosis 1+ Erythrocyte Sedimentation Rate 67 MM/HR (0-20) H Sodium Level 139 MMOL/L (136-145) Potassium Level 3.5 MMOL/L (3.5-5.1) Chloride Level 107 MMOL/L (98-107) Carbon Dioxide Level 19 MMOL/L (21-32) L Anion Gap 13 mmol/L (5-15) Blood Urea Nitrogen 37 mg/dL (7-18) H Creatinine 2.1 MG/DL (0.55-1.30) H Estimat Glomerular Filtration Rate 32.8 mL/min (>60) Glucose Level 127 MG/DL (74-106) H Calcium Level 7.1 MG/DL (8.5-10.1) L Phosphorus Level 3.0 MG/DL (2.5-4.9) Magnesium Level 2.0 MG/DL (1.8-2.4) Total Bilirubin 17.1 MG/DL (0.2-1.0) H Direct Bilirubin 14.0 MG/DL (0.0-0.3) H Aspartate Amino Transf (AST/SGOT) 110 U/L (15-37) H Alanine Aminotransferase (ALT/SGPT) 20 U/L (12-78) Alkaline Phosphatase 495 U/L (46-116) H C-Reactive Protein, Quantitative 11.1 mg/dL (0.00-0.90) H Total Protein 4.4 G/DL (6.4-8.2) L Albumin 1.1 G/DL (3.4-5.0) L Globulin 3.3 g/dL Albumin/Globulin Ratio 0.3 (1.0-2.7) L General: well developed, other Head: normocophalic, other Neck: no rigidity EENT: other - Visible right nasal polyp, skin tag, lesion - Neurologic Exam Mental Status: awake, alert, other Speech: other Language: other Cranial Nerve II: fundus normal, visual osorio, other Cranial Nerves III, IV, : PERRLA, EOMI, other Cranial Nerve V: normal facial sensations, temporales function normal, other Cranial Nerve VII: no facial asymmetry, other Cranial Nerve VIII: normal hearing, other Cranial Nerve IX: normal palate elevation, other Cranial Nerve X: no voice hoarseness, other Cranial Nerve XI: SCM symmetric, other Cranial Nerve XII: tongue midline, other Motor System: no involuntary movement, other Sensory: normal pinprick, normal light touch, normal position sense, normal graphesthesia, other Coordination: other - More appropriately verbal in conversation at times with depressed affect and difficulty following instructions during examination. Deep Tendon Reflexes: 1+ bicep (L), 1+ bicep (R), 1+ tricep (L), 1+ tricep (R) , 1+ brachioradialis (L), 1+ brachioradialis (R), 1+ knee (L), 1+ knee (R), 1+ ankle (L), 1+ ankle (R) Stance: other - Patient remains weak throughout all extremities with non focal exam. He is more appropriate in conversation today but remains non focal and encephalopathic Gait: other Objective Patient is alert and oriented to circumstances with intermittent episodes of agitation/ confusion. He remains non focal and weak throughout Impression/Recommendations Problems: (1) Acute upper GI bleed (2) Fecal impaction in rectum (3) Esophagitis (4) Alcoholic liver disease (5) Elevated LFTs (6) Acute alcoholic gastritis (7) Psychosis (8) Acute alcoholic intoxication (9) Acute encephalopathy (10) Hypocalcemia Status: not improved, unchanged, deteriorating Recommendations Oral feeding PRN all day given nutritional status and care goals Morphine infusion commenced . Stable for D/C from a neurological perspective but we will continue to monitor. Aniak Pettit N.P. Jan 17, 2019 03:28
--- NOTE | 2019-01-17 04:41 | NUR ---
NURSE NOTES: Patient is WHARFINGER CHIEF on continuous morphine. At 0400 patients family at bedside all asked to postpone hanging the next syringe of morphine. I spoke with family and told them I will call MD and discuss the decision. Awaiting return call. Addendum: 01/17/19 at 0549 by Jd Ugalde RN Spoke with charge nurseCarolina and split and drum room supervisor, Viki about the family decision. Both aware of the situation and asked to be notified once MD has responded.
[2019-01-17] MEDS: Narcotic Shift Volume MISC SCH (07:04)
--- NOTE | 2019-01-17 07:37 | NUR ---
HAND-OFF: Report given to BRANNON Pillai. Patient is sedated, family still at bedside. Awaiting response from MD for further [employer] ADMINISTRATOR orders. Family would like to talk with MD.
--- NOTE | 2019-01-17 07:42 | NUR ---
NURSE NOTES: PT VERY LETHARGIC. FAMILY MEMBERS AT BEDSIDE. PRODUCE SERVICE TEAM MEMBER MORPHINE NOT INFUSING PER FAMILY REQUEST.DR LI INFORMED BY NIGHT NURSE. STILL WAITING FOR MD'S REPLY. WILL CONTINUE TO KEEP PT ON COMFORT MEASURE.
[2019-01-17 08:30] VITALS: BP 90/64
--- NOTE | 2019-01-17 11:12 | NUR ---
NURSE NOTES: Pt. family stated they didn't discuss with the conservator Malinda regarding end of life decision, CN called and spoke to Malinda she stated "she is on her way and will be here soon" when Malinda arrived the family had a conversation outside patient room loud CN encouraged family to go to the family room to seat and discuss the matter. Family unable to reach agreement the conservator/Malinda verbalized she doesn't want to make a decision behalf of the family, CN informed soil sort worker Marilyn and came and discussed with the family Malinda still doesn't want to be the conservator.
--- NOTE | 2019-01-17 11:30 | NUR ---
NURSE NOTES: PT GURGLING. SUCTIONED ORALLY OBTAINED WHITE PHLEGM.
--- NOTE | 2019-01-17 11:33 | Cardiac Electrophysiology PN ---
Assessment/Plan Assessment/Plan 1. Hypotension and sinus tach. Off tele and comfort care. 2. Atypical Chest pain . EKG nonspecific ST-T wave abnormality. No HI. Echo EF 55% 3. Persistent hypokalemia. Corrected. 4. Leukocytosis. Abx and steroids DCed 5. ETOH Cirrhosis with Bilirubin 14. FU GI. S/P 7 liters of paracentesis 01/11/19 6. Comfort Care . NASIMA RN Subjective Subjective Very weak. RN at bedside. Is comfort care now. Morphin drip DCed last night per some family requests Objective Last 24 Hour Vital Signs Date Time Temp Pulse Resp B/P (MAP) Pulse Ox O2 Delivery O2 Flow Rate FiO2 01/17/19 08:56 Nasal Cannula 2.0 01/17/19 08:30 124 16 90/64 (73) 84 01/16/19 21:00 Nasal Cannula 2.0 Intake and Output 01/16/19 01/17/19 19:00 07:00 Intake Total 120 ml Balance 120 ml Intake Oral 120 ml # Bowel Movements 2 1 Objective HEENT: Jaundiced sclera Cardiovascular: normal S1 and S2 and no murmur Respiratory/Chest: normal breath sounds, no respiratory distress Abdominal Exam: Distended with ascites Extremities: 2 plus edema Franck Saeed MD Jan 17, 2019 11:33
--- NOTE | 2019-01-17 11:47 | General Progress Note ---
Assessment/Plan Problem List: (1) Elevated LFTs ICD Codes: R94.5 - Abnormal results of liver function studies SNOMED: 407382953, 798925780 (2) Esophagitis ICD Codes: K20.9 - Esophagitis, unspecified SNOMED: 32463081 (3) Acute alcoholic gastritis ICD Codes: K29.20 - Alcoholic gastritis without bleeding SNOMED: 8470089 Qualifiers: Qualified Codes: K29.20 - Alcoholic gastritis without bleeding (4) Alcoholic liver disease ICD Codes: K70.9 - Alcoholic liver disease, unspecified SNOMED: 55093366 Status: not improved, unchanged, deteriorating Assessment/Plan: Imaging noted, cirrhosis >> rising bili US with doppler r/o Budd-Chiari Syndrome>> negative OB stool negative Stable H&H discriminant function calculated, patient will benefit from glucocorticoid therapy >> held due to elevated WBC Paracentesis yielding 7.4L , rule out SBP >> negative lactulose + xifaxan monitor H&H, prn transfusions bowel regimen ppi fu labs fu neurology recs Subjective ROS Limited/Unobtainable: No Allergies: Coded Allergies: No Known Allergies (Verified , 10/22/06) Objective Last 24 Hour Vital Signs Date Time Temp Pulse Resp B/P (MAP) Pulse Ox O2 Delivery O2 Flow Rate FiO2 01/17/19 08:56 Nasal Cannula 2.0 01/17/19 08:30 124 16 90/64 (73) 84 01/16/19 21:00 Nasal Cannula 2.0 Intake and Output 01/16/19 01/17/19 19:00 07:00 Intake Total 120 ml Balance 120 ml Intake Oral 120 ml # Bowel Movements 2 1 Height (Feet): 5 Height (Inches): 5.00 Weight (Pounds): 195 General Appearance: alert EENT: normal ENT inspection Neck: supple Cardiovascular: normal rate Respiratory/Chest: decreased breath sounds Abdomen: normal bowel sounds, non tender, soft Extremities: non-tender Jarod Rich MD Jan 17, 2019 11:47
--- NOTE | 2019-01-17 12:00 | General Progress Note ---
Assessment/Plan Problem List: (1) Abdominal pain ICD Codes: R10.9 - Unspecified abdominal pain SNOMED: 48181064 (2) Anemia ICD Codes: D64.9 - Anemia, unspecified SNOMED: 391382387 (3) Alcoholic liver disease ICD Codes: K70.9 - Alcoholic liver disease, unspecified SNOMED: 23891291 (4) Acute alcoholic gastritis ICD Codes: K29.20 - Alcoholic gastritis without bleeding SNOMED: 0619828 Qualifiers: Qualified Codes: K29.20 - Alcoholic gastritis without bleeding Status: not improved, unchanged, deteriorating Assessment/Plan: detox gi f/u cbc bmp dc plan comfort snf if clear Subjective Constitutional: Reports: weakness Allergies: Coded Allergies: No Known Allergies (Verified , 10/22/06) All Systems: reviewed and negative except above Subjective o2nc sleepy calm Objective Last 24 Hour Vital Signs Date Time Temp Pulse Resp B/P (MAP) Pulse Ox O2 Delivery O2 Flow Rate FiO2 01/17/19 08:56 Nasal Cannula 2.0 01/17/19 08:30 124 16 90/64 (73) 84 01/16/19 21:00 Nasal Cannula 2.0 Intake and Output 01/16/19 01/17/19 19:00 07:00 Intake Total 120 ml Balance 120 ml Intake Oral 120 ml # Bowel Movements 2 1 Height (Feet): 5 Height (Inches): 5.00 Weight (Pounds): 195 General Appearance: lethargic EENT: normal ENT inspection Neck: normal alignment Cardiovascular: normal peripheral pulses, normal rate, regular rhythm Respiratory/Chest: chest wall non-tender, lungs clear, normal breath sounds Abdomen: normal bowel sounds, soft, distended Extremities: normal inspection Edema: no edema noted Arm (L), no edema noted Arm (R), no edema noted Leg (L), no edema noted Leg (R), no edema noted Pedal (L), no edema noted Pedal (R), no edema noted Generalized Neurologic: motor weakness Corwin Martinez DO Jan 17, 2019 12:00
--- NOTE | 2019-01-17 14:20 | NUR ---
NURSE NOTES: DR LI HERE TO SEE PT. TALKED PT'S SISTER (ARMANI MOLINA ) RE PT'S CONDITIONS AND CONCERNS WITH ORDERS.
--- NOTE | 2019-01-17 14:28 | Pulmonology Progress Note ---
Assessment/Plan Problems: (1) Sepsis (2) End stage liver disease (3) Acute upper GI bleed (4) Acute alcoholic intoxication (5) Coagulopathy (6) Psychosis (7) Acute encephalopathy (8) Alcoholic liver disease Assessment/Plan comatose off morphine drip difficult to manage because of conflicting requests by family members. Subjective ROS Limited/Unobtainable: No Interval Events: DOPA requested yesterday alekseyin, other sisters asked to dc it. Constitutional: Reports: no symptoms Allergies: Coded Allergies: No Known Allergies (Verified , 10/22/06) Objective Last 24 Hour Vital Signs Date Time Temp Pulse Resp B/P (MAP) Pulse Ox O2 Delivery O2 Flow Rate FiO2 01/17/19 08:56 Nasal Cannula 2.0 01/17/19 08:30 124 16 90/64 (73) 84 01/16/19 21:00 Nasal Cannula 2.0 Intake and Output 01/16/19 01/17/19 19:00 07:00 Intake Total 120 ml Balance 120 ml Intake Oral 120 ml # Bowel Movements 2 1 Objective General Appearance: cachectic HEENT: atraumatic Respiratory/Chest: chest wall non-tender, normal breath sounds Breasts: no masses Cardiovascular: normal rate Abdomen: soft, non tender, ascites Genitourinary: normal external genitalia Extremities: no clubbing Current Medications Medications (Trade) Dose Ordered Sig/Clyde Route PRN Reason Start Time Stop Time Status Last Admin Dose Admin Chlorhexidine Gluconate (Sharmila-Hex 2%) 1 applic DAILY@1999 TOPIC 01/05/19 20:00 02/01/19 19:59 01/15/19 20:00 Dextrose (Dextrose 50%) 50 ml Q30M PRN IV Hypoglycemia 01/05/19 18:30 01/28/19 16:29 Miscellaneous Medication (Narcotic Drip Rate Change) 1 ea DAILY PRN MISC . 01/16/19 12:00 02/15/19 11:59 Miscellaneous Medication (Narcotic Shift Volume) 1 ea Q8HR@, MISC 01/16/19 15:00 02/15/19 14:59 01/17/19 07:04 Morphine Sulfate 30 ml @ 5 mls/hr DIGITAL MEDIA REPRESENTATIVE Protocol IV 01/16/19 12:00 01/18/19 11:50 01/16/19 20:55 Morphine Sulfate (Morphine Sulfate) 4 mg Q3H PRN IV Severe Pain (Pain Scale 7-10) 01/16/19 12:00 01/18/19 11:59 Ondansetron HCl (Zofran) 4 mg Q6H PRN IVP Nausea & Vomiting 01/05/19 18:25 02/04/19 18:24 Marion Schneider MD Jan 17, 2019 14:28
--- NOTE | 2019-01-17 14:56 | NUR ---
CASE MANAGEMENT:REVIEW 01/17/19 SI: ACUTE ENCEPHALOPATHY. SEPSIS ACUTE ALCOHOLIC GASTRITIS. ESOPHAGITIS 98.1 124 16 90/64 84% ON 2L/NC IS: FOOD SERVICE HELPER MORPHINE DC'D : MED/SURG STATUS 3 EAST DCP: ASSISTED LIVING PLAN: PATIENT'S SISTER/CONSERVATOR RESIGNED FROM MAKING DECISIONS D/T FAMILY PRESSURE NEW DISCHARGE PLAN NOW HAS TO BE FORMULATED
--- NOTE | 2019-01-17 15:01 | NUR ---
P.T WEEKLY NOTE: PATIENT RESPONDED POORLY IN PHYSICAL THERAPY . PATIENT DEMONSTRATED SIGNIFICANT DECLINE IN FUNCTIONAL MOBILITIES. PATIENT IS CURRENTLY MAX/DEPENDENT IN ALL AREAS OF ADL/SELF CARE. PROGRESS IS LIMITED DUE TO POOR MEDICAL CONDITION. PATIENT IS NOW IN HOSPICE FOR COMFORT MEASURE. D/C P.T SERVICES.
--- NOTE | 2019-01-17 15:11 | NUR ---
*-* INSURANCE *-* UPDATED CLINICALS & REVIEWS HAVE BEEN FAXED TO [facility]NAMAR[facility]: [place]INGUE[place] Iglesias P- [phone] F- [phone].....REVIEW/CLINICAL
--- NOTE | 2019-01-17 15:16 | Nephrology Progress Note ---
Assessment/Plan Problem List: (1) SHABBIR (acute kidney injury) Assessment: likely hepatorenal (2) Alcoholic liver disease (3) Anemia (4) Electrolyte disorder (5) Jaundice Assessment Acute Alcoholic Gastritis / Encephalopathy - Intoxication Alcoholic Hepatitis Anemia Hypokalemia Psych disease Plan seems like patient is being full code again- in that case need fresh lab results for further management. Will discuss previously PO steroids on hold by GI has PICC Monitor lytes / Lfts per orders Subjective ROS Limited/Unobtainable: No Constitutional: Reports: malaise, weakness Objective Objective Last 24 Hour Vital Signs Date Time Temp Pulse Resp B/P (MAP) Pulse Ox O2 Delivery O2 Flow Rate FiO2 01/17/19 08:56 Nasal Cannula 2.0 01/17/19 08:30 124 16 90/64 (73) 84 01/16/19 21:00 Nasal Cannula 2.0 Intake and Output 01/16/19 01/17/19 19:00 07:00 Intake Total 120 ml Balance 120 ml Intake Oral 120 ml # Bowel Movements 2 1 Height (Feet): 5 Height (Inches): 5.00 Weight (Pounds): 195 General Appearance: no apparent distress, lethargic EENT: other - icteric Cardiovascular: tachycardia Respiratory/Chest: decreased breath sounds Abdomen: distended Objective no change Leonard Bautista MD Jan 17, 2019 15:16
--- NOTE | 2019-01-17 15:33 | Infectious Diseases Prog Note ---
Assessment/Plan Assessment/Plan 58 yo male with PMHx of EtOH abuse, Depression and anxiety, SI who presented to the ED on 12/29/18 with N/V and abdominal pain. Leukocytosis and single high temp- S/P Prednisone 01/09/19 Likely due to gastritis from EtOH need -MRCP : Very limited exam, as described. Normal caliber bile ducts without definite filling defects to suggest choledocholithiasis Cholelithiasis. Gallbladder wall thickening, also described on prior sonogram. Most likely on the basis of hepatocellular derangement but the possibility of acute cholecystitis should also be considered. Ascites. Abnormal hepatic morphology, also previously described, suggestive of cirrhotic change -Abd US: Hepatomegaly. Coarsened hepatic echogenicity and surface nodularitysuggests cirrhosis. Ascites, not demonstrated previously. Cholelithiasis and gallbladder sludge, not evident previously. Gallbladder wall thickening and pericholecystic fluid, probably due to the hepatocellular derangements, but the possibility of acute cholecystitis should also be considered. Correlate with clinical findings, consider nuclear medicine hepatobiliary scan if clinically indicated. Negative for dilated bile ducts. Incidental finding small left renal cyst -CT abd/p: Chronic liver disease/cirrhosis with fatty infiltration, enlargement of the liver and stigmata of portal hypertension including ascites and splenomegaly, recanalized umbilical vein. Basilar atelectasis. Probable gallstones. Tiny bilateral renal hypodensities too small to characterize.Fecal impaction Cirrhosis EtOH abuse Hep A/B/C - Neg Paracentesis Cx 01/11/19 - Neg Depression and anxiety SI HIV (-) PLAN: - Resume Zosyn #11 and add Micafungin -01/16 SP ZOsyn #10 - 01/08/19 S/P Levofloxacin #6 and Flagyl #6 - 01/03/19 S/P Zosyn #5 -u/a, ucx, Bcx x2 -CXR, CBC, CMP am -aspiration precautions -goals of care discussion ongoing Subjective Allergies: Coded Allergies: No Known Allergies (Verified , 10/22/06) Subjective family now requested morphine drip off and no longer comfort care ID called to continue following patient afebrile no labs today Objective Vital Signs Last 24 Hour Vital Signs Date Time Temp Pulse Resp B/P (MAP) Pulse Ox O2 Delivery O2 Flow Rate FiO2 01/17/19 08:56 Nasal Cannula 2.0 01/17/19 08:30 124 16 90/64 (73) 84 01/16/19 21:00 Nasal Cannula 2.0 Height (Feet): 5 Height (Inches): 5.00 Weight (Pounds): 195 Objective Gen: NAD HEENT: NCAT, MMM, EOMI, PERRL, No Oral lesion, no scleral icterus but blood shot NECK: full range of motion, supple, no meningismus, No LAD, No JVD LUNGS: CTAB, No W/C, No Accessory muscle use CARDS: RRR, S1, S2, No M/R/G, ABD: Soft, Epigastric pain, ND, No R/G, + BS, No HSM, No Masses : Deferred Ext: C/C/E, Pulses 2+ B/L (DP, Rad): NEURO: A/O x 4, Strength and Sensation Grossly intact PSYCH: Depressed SKIN: Warm/dry, No rashes Current Medications Medications (Trade) Dose Ordered Sig/Clyde Route PRN Reason Start Time Stop Time Status Last Admin Dose Admin Chlorhexidine Gluconate (Sharmila-Hex 2%) 1 applic DAILY@2000 TOPIC 01/05/19 20:00 02/01/19 19:59 01/15/19 20:00 Dextrose (Dextrose 50%) 50 ml Q30M PRN IV Hypoglycemia 01/05/19 18:30 01/28/19 16:29 Dextrose/Sodium Chloride 1,000 ml @ 75 mls/hr [id number] IV 01/17/19 15:30 02/16/19 15:29 Lactulose (Cephulac) 30 gm THREE TIMES A DAY ORAL 01/17/19 18:00 02/16/19 17:59 Midodrine (Pro-Amatine) 10 mg THREE TIMES A DAY ORAL 01/17/19 18:00 02/16/19 17:59 Ondansetron HCl (Zofran) 4 mg Q6H PRN IVP Nausea & Vomiting 01/05/19 18:25 02/04/19 18:24 Pantoprazole (Protonix) 40 mg EVERY 12 HOURS ORAL 01/17/19 21:00 02/16/19 20:59 Carmen Berumen M.D. Jan 17, 2019 15:33
--- NOTE | 2019-01-17 15:36 | NUR ---
NURSE NOTES: RN verified the new order and note by Dr. Cherry regarding changing code status to full and the new order placed. Dr. Cherry office called back to verify with primary physician. RN spoke to Dr. Schneider and informed patient still DNR/DNI and to carry out the new order placed by Nephro and ID.
[2019-01-17] MEDS: D5NS 1,000 ML IV SCH (16:16)
[2019-01-17] MEDS: Micafungin 100 MG in NS 110 ML IVPB SCH (16:41)
--- NOTE | 2019-01-17 17:00 | NUR ---
NURSE NOTES: SUCTIONED ORALLY FREQUENTLY NEEDED. HOB ELEVATED. O2 2L PER N/C. REPOSITIONED FOR COMFORT.
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
[2019-01-17] MEDS: Midodrine 10mg tab ORAL SCH (17:43)
[2019-01-17] MEDS: Lactulose 20gm/30ml UDC ORAL SCH (17:43)
[2019-01-17] MEDS: Piperacillin/Tazobactam 3.375 GM in NS 110 ML IVPB SCH (17:50)
--- NOTE | 2019-01-17 19:05 | NUR ---
NURSE NOTES: CONDITION REMAINS THE SAME. ON COMFORT MEASURES.
--- NOTE | 2019-01-17 19:37 | NUR ---
HAND-OFF: Report given to Rafat BOSE RN.
--- NOTE | 2019-01-17 19:38 | NUR ---
NURSE NOTES: Report taken from BRANNON Pillai. Patient is sedated and fatigued, family at bedside. Minimal respond to name and pain, facial grimacing quiet moan, does attempt to open eye and look at person. patient has difficulty breathing due to mucous buildup, suction at bedside, audible wetness with inspiration/expiration. Suction as needed. Endorsed from day shift that POA are now sistes Reyna and Harlette. Status still DNR per MD order. Order to continue orders as placed. PICC line is intact, extracted from patient but still able to be flushed and blood return. He has generalized swelling around entire body, pitting +2. Skin is jaundiced. Continue to monitor breathing and neuro. bed in lowest position.
[2019-01-17] MEDS: Dyna-Hex 2% Top Sol 2oz TOPIC SCH (20:00)
--- NOTE | 2019-01-18 02:19 | Neurology Progress Note ---
Interim History Interim History ROS Limited/Unobtainable: No Complaints: AMS Events: This visit was performed on January 18, [address] Dee. Interim History Patient's DPOA has resigned and patient's DNR status is currently being challenged by other family members and new DPOA. Patient's neurological status continues to wax and wane and he is currently very lethargic with minimal verbal response. Objective Physical Exam Last Vital Signs Date Time Temp Pulse Resp B/P (MAP) Pulse Ox O2 Delivery O2 Flow Rate FiO2 01/17/19 21:00 Nasal Cannula 2.0 01/17/19 08:30 124 16 90/64 (73) 84 01/16/19 08:00 98.1 General: well developed, other Head: normocophalic, other Neck: no rigidity EENT: other - Visible right nasal polyp, skin tag, lesion - Neurologic Exam Mental Status: awake, alert, other Speech: other Language: other Cranial Nerve II: fundus normal, visual osorio, other Cranial Nerves III, IV, : PERRLA, EOMI, other Cranial Nerve V: normal facial sensations, temporales function normal, other Cranial Nerve VII: no facial asymmetry, other Cranial Nerve VIII: normal hearing, other Cranial Nerve IX: normal palate elevation, other Cranial Nerve X: no voice hoarseness, other Cranial Nerve XI: SCM symmetric, other Cranial Nerve XII: tongue midline, other Motor System: no involuntary movement, other Sensory: normal pinprick, normal light touch, normal position sense, normal graphesthesia, other Coordination: other - More appropriately verbal in conversation at times with depressed affect and difficulty following instructions during examination. Deep Tendon Reflexes: 1+ bicep (L), 1+ bicep (R), 1+ tricep (L), 1+ tricep (R) , 1+ brachioradialis (L), 1+ brachioradialis (R), 1+ knee (L), 1+ knee (R), 1+ ankle (L), 1+ ankle (R) Stance: other - Patient remains weak throughout all extremities with non focal exam. He is more appropriate in conversation today but remains non focal and encephalopathic Gait: other Objective Patient is alert and oriented to circumstances with intermittent episodes of agitation/ confusion. He remains non focal and weak throughout He becomes tangential and agitated at times but is increasingly lethargic- today , he is minimally verbal and lethargic. Impression/Recommendations Problems: (1) Acute upper GI bleed (2) Esophagitis (3) Alcoholic liver disease (4) Elevated LFTs (5) Acute alcoholic gastritis (6) Psychosis (7) Acute alcoholic intoxication (8) Acute encephalopathy (9) Hypocalcemia Status: not improved, unchanged, deteriorating Recommendations Oral feeding PRN all day given nutritional status and care goals Await goals of care discussion and decisions from family. Patient likely has poor prognosis due to ongoing liver failure. Neurological status has waxed/ waned and secondary to hepatic encephalopathy. We will continue to follow. Anika Pettit N.P. Jan 18, 2019 02:19
--- NOTE | 2019-01-18 03:27 | NUR ---
NURSE NOTES: Patient awoke, but lethargic. Able to respond to voice. Very confused as to where he is or why he is here. Continues to state that he is happy his family came to visit. Minor response to pain, slight flexion. Continue to monitor
[2019-01-18] MEDS: D5NS 1,000 ML IV SCH ×2 (04:53→19:26)
[2019-01-18] MEDS: Piperacillin/Tazobactam 3.375 GM in NS 110 ML IVPB SCH ×2 (05:28→14:08)
[2019-01-18 05:39] LABS: HEMOGLOBIN 8.3 G/DL (14.2-18.0); MEAN CORPUSCULAR VOLUME 102 FL (80-99); PLATELET COUNT 253 K/UL (150-450); RED BLOOD COUNT 2.65 M/UL (4.70-6.10); RED CELL DISTRIBUTION WIDTH 16.5 % (11.6-14.8)
[2019-01-18 05:48] LABS: WHITE BLOOD COUNT 31.2 K/UL (4.8-10.8)
[2019-01-18 06:08] LABS: AMMONIA 41 umol/L (11-32)
[2019-01-18 06:13] LABS: ALANINE AMINOTRANSFERASE 28 U/L (12-78); ALBUMIN 0.9 G/DL (3.4-5.0); ALBUMIN/GLOBULIN RATIO 0.3 (1.0-2.7); ALKALINE PHOSPHATASE 384 U/L (46-116); ANION GAP 19 mmol/L (5-15); ASPARTATE AMINO TRANSFERASE 194 U/L (15-37); BILIRUBIN,TOTAL 16.7 MG/DL (0.2-1.0); BLOOD UREA NITROGEN 54 mg/dL (7-18); CALCIUM 7.2 MG/DL (8.5-10.1); CARBON DIOXIDE 14 MMOL/L (21-32); CHLORIDE 108 MMOL/L (98-107); CREATININE 5.4 MG/DL (0.55-1.30); GAMMA GLUTAMYL TRANSPEPTIDASE 564 U/L (5-85); PHOSPHORUS 5.9 MG/DL (2.5-4.9); POTASSIUM 4.6 MMOL/L (3.5-5.1); SODIUM 141 MMOL/L (136-145)
[2019-01-18 06:23] LABS: BILIRUBIN,DIRECT 13.7 MG/DL (0.0-0.3)
--- NOTE | 2019-01-18 07:38 | NUR ---
HAND-OFF: Report given to BRANNON Bullock.
[2019-01-18 08:00] VITALS: BP 76/52
--- NOTE | 2019-01-18 08:00 | NUR ---
NURSE NOTES: Received report from Jd SOUTH. Patient is oriented x1, during rounds, arousable to light shaking, x-ray at bedside. Does appear to be in pain, moans occasionally. Noted patient is jaundiced and abdomen distended. TITO PICC noted to be almost all the way out, currently running IVF and antibiotic per order. Will start peripheral IV. Patient is on 2L NC. Fall and aspiration precautions implemented, suction at bedside. Side rails upx3, bed low and locked, call light in reach. Will continue to monitor.
--- NOTE | 2019-01-18 08:04 | NUR ---
RADIOLOGY: PCXR completed 0800 hrs. NF
--- NOTE | 2019-01-18 08:55 | NUR ---
CASE MANAGEMENT:REVIEW 01/18/19 SI: ACUTE ENCEPHALOPATHY. SEPSIS ACUTE ALCOHOLIC GASTRITIS. ESOPHAGITIS 98.1 124 16 90/64 84% ON 2L WBC+31.2 H/H-8.3/27.0 BUN+54 CR+5.4 IS: IV ZOSYN Q8HRS IV MICAFUNGIN Q24 IV F@75/HR : MED/SURG STATUS 3 EAST DCP: PLAN: PATIENT'S SISTER/CONSERVATOR RESIGNED FROM MAKING DECISIONS D/T FAMILY PRESSURE NEW DISCHARGE PLAN NOW HAS TO BE FORMULATED
[2019-01-18 09:00] VITALS: BP 62/40
[2019-01-18] MEDS: Midodrine 10mg tab ORAL SCH ×3 (09:00→18:00)
[2019-01-18] MEDS: Lactulose 20gm/30ml UDC ORAL SCH ×3 (09:00→18:00)
--- NOTE | 2019-01-18 09:11 | NUR ---
NURSE NOTES: Called Dr Schneider. Informed MD of patient's blood pressure 62/40. Dr. Schneider verified that resuscitation states is DNR/DNI Verified telephone order with second nurse tawny Gibson RN. Updated per MD order. Will continue to monitor.
--- NOTE | 2019-01-18 09:28 | NUR ---
Social Service Note SW went to patient's room. No family present. ELENA continues to call Sandy [phone], all calls go to voicemail and unable to leave a message. Will continue to reach out to family.
--- NOTE | 2019-01-18 09:29 | NUR ---
*-* INSURANCE *-* UPDATED CLINICALS & REVIEWS HAVE BEEN FAXED TO [facility]: DOMINGUEZ Iglesias P- [phone] F- [phone].....REVIEW/CLINICAL
--- NOTE | 2019-01-18 09:55 | General Progress Note ---
Assessment/Plan Problem List: (1) Elevated LFTs ICD Codes: R94.5 - Abnormal results of liver function studies SNOMED: 577875565, 053251317 (2) Esophagitis ICD Codes: K20.9 - Esophagitis, unspecified SNOMED: 68773469 (3) Acute alcoholic gastritis ICD Codes: K29.20 - Alcoholic gastritis without bleeding SNOMED: 5915993 Qualifiers: Qualified Codes: K29.20 - Alcoholic gastritis without bleeding (4) Alcoholic liver disease ICD Codes: K70.9 - Alcoholic liver disease, unspecified SNOMED: 97536007 Status: not improved, unchanged, deteriorating Assessment/Plan: Imaging noted, cirrhosis >> rising bili US with doppler r/o Budd-Chiari Syndrome>> negative OB stool negative Stable H&H discriminant function calculated, patient will benefit from glucocorticoid therapy >> held due to elevated WBC Paracentesis yielding 7.4L , rule out SBP >> negative lactulose + xifaxan monitor H&H, prn transfusions bowel regimen ppi fu labs fu neurology recs poor prognosis Subjective ROS Limited/Unobtainable: No Allergies: Coded Allergies: No Known Allergies (Verified , 10/22/06) Objective Last 24 Hour Vital Signs Date Time Temp Pulse Resp B/P (MAP) Pulse Ox O2 Delivery O2 Flow Rate FiO2 01/17/19 21:00 Nasal Cannula 2.0 Intake and Output 01/17/19 01/18/19 18:59 06:59 Intake Total 260 ml 125 ml Balance 260 ml 125 ml Intake Oral 50 ml IV Total 260 ml 75 ml # Voids 1 Laboratory Tests 01/18/19 04:50: White Blood Count 31.2*H, Red Blood Count 2.65L, Hemoglobin 8.3L, Hematocrit 27.0L, Mean Corpuscular Volume 102H, Mean Corpuscular Hemoglobin 31.2H, Mean Corpuscular Hemoglobin Concent 30.7L, Red Cell Distribution Width 16.5H, Platelet Count 253, Mean Platelet Volume 7.6, Neutrophils (%) (Auto) , Lymphocytes (%) (Auto) , Monocytes (%) (Auto) , Eosinophils (%) (Auto) , Basophils (%) (Auto) , Differential Total Cells Counted 100, Neutrophils % ( Manual) 84H, Lymphocytes % (Manual) 7L, Monocytes % (Manual) 3, Eosinophils % ( Manual) 0, Basophils % (Manual) 0, Band Neutrophils 6, Platelet Estimate Adequate, Platelet Morphology Normal, Hypochromasia 2+, Anisocytosis 1+, Macrocytosis 1+, Sodium Level 141, Potassium Level 4.6, Chloride Level 108H, Carbon Dioxide Level 14L, Anion Gap 19H, Blood Urea Nitrogen 54H, Creatinine 5.4H, Estimat Glomerular Filtration Rate 11.0, Glucose Level 132H, Uric Acid 8.1H, Calcium Level 7.2L, Phosphorus Level 5.9H, Magnesium Level 1.9, Total Bilirubin 16.7H, Direct Bilirubin 13.7H, Gamma Glutamyl Transpeptidase 564H, Aspartate Amino Transf (AST/SGOT) 194H, Alanine Aminotransferase (ALT/SGPT) 28, Alkaline Phosphatase 384H, Ammonia 41H, C-Reactive Protein, Quantitative 21.4H, Pro-B-Type Natriuretic Peptide 1115H, Total Protein 4.2L, Albumin 0.9L, Globulin 3.3, Albumin/Globulin Ratio 0.3L Height (Feet): 5 Height (Inches): 5.00 Weight (Pounds): 189 General Appearance: lethargic EENT: scleral icterus Neck: supple Cardiovascular: normal rate Respiratory/Chest: decreased breath sounds Abdomen: normal bowel sounds, non tender, soft Extremities: non-tender Jarod Rich MD Jan 18, 2019 09:55
--- NOTE | 2019-01-18 10:27 | NUR ---
NURSE NOTES: PICC line removed per order. Patient tolerated removal well. PICC line tip is intact. Dressing applied and pressure held, no bleeding noted.
--- NOTE | 2019-01-18 11:19 | Pulmonology Progress Note ---
Assessment/Plan Problems: (1) Sepsis (2) End stage liver disease (3) Acute upper GI bleed (4) Acute alcoholic intoxication (5) Coagulopathy (6) Psychosis (7) Acute encephalopathy (8) Alcoholic liver disease Assessment/Plan comatose off morphine drip difficult to manage because of conflicting requests by family members. Subjective ROS Limited/Unobtainable: No Constitutional: Reports: no symptoms HEENT: Repors: no symptoms Allergies: Coded Allergies: No Known Allergies (Verified , 10/22/06) Objective Last 24 Hour Vital Signs Date Time Temp Pulse Resp B/P (MAP) Pulse Ox O2 Delivery O2 Flow Rate FiO2 01/18/19 09:00 62/40 (47) 01/18/19 08:00 97.9 52 17 76/52 (60) 85 01/17/19 21:00 Nasal Cannula 2.0 Intake and Output 01/17/19 01/18/19 19:00 07:00 Intake Total 335 ml 50 ml Balance 335 ml 50 ml Intake Oral 50 ml IV Total 335 ml # Voids 1 Objective General Appearance: cachectic HEENT: atraumatic Respiratory/Chest: chest wall non-tender, normal breath sounds Breasts: no masses Cardiovascular: normal rate Abdomen: soft, non tender, ascites Genitourinary: normal external genitalia Extremities: no clubbing Laboratory Tests 01/18/19 04:50: White Blood Count 31.2*H, Red Blood Count 2.65L, Hemoglobin 8.3L, Hematocrit 27.0L, Mean Corpuscular Volume 102H, Mean Corpuscular Hemoglobin 31.2H, Mean Corpuscular Hemoglobin Concent 30.7L, Red Cell Distribution Width 16.5H, Platelet Count 253, Mean Platelet Volume 7.6, Neutrophils (%) (Auto) , Lymphocytes (%) (Auto) , Monocytes (%) (Auto) , Eosinophils (%) (Auto) , Basophils (%) (Auto) , Differential Total Cells Counted 100, Neutrophils % ( Manual) 84H, Lymphocytes % (Manual) 7L, Monocytes % (Manual) 3, Eosinophils % ( Manual) 0, Basophils % (Manual) 0, Band Neutrophils 6, Platelet Estimate Adequate, Platelet Morphology Normal, Hypochromasia 2+, Anisocytosis 1+, Macrocytosis 1+, Sodium Level 141, Potassium Level 4.6, Chloride Level 108H, Carbon Dioxide Level 14L, Anion Gap 19H, Blood Urea Nitrogen 54H, Creatinine 5.4H, Estimat Glomerular Filtration Rate 11.0, Glucose Level 132H, Uric Acid 8.1H, Calcium Level 7.2L, Phosphorus Level 5.9H, Magnesium Level 1.9, Total Bilirubin 16.7H, Direct Bilirubin 13.7H, Gamma Glutamyl Transpeptidase 564H, Aspartate Amino Transf (AST/SGOT) 194H, Alanine Aminotransferase (ALT/SGPT) 28, Alkaline Phosphatase 384H, Ammonia 41H, C-Reactive Protein, Quantitative 21.4H, Pro-B-Type Natriuretic Peptide 1115H, Total Protein 4.2L, Albumin 0.9L, Globulin 3.3, Albumin/Globulin Ratio 0.3L Current Medications Medications (Trade) Dose Ordered Sig/Clyde Route PRN Reason Start Time Stop Time Status Last Admin Dose Admin Chlorhexidine Gluconate (Sharmila-Hex 2%) 1 applic DAILY@2000 TOPIC 01/05/19 20:00 02/01/19 19:59 01/17/19 20:00 Dextrose (Dextrose 50%) 50 ml Q30M PRN IV Hypoglycemia 01/05/19 18:30 01/28/19 16:29 Dextrose/Sodium Chloride 1,000 ml @ 75 mls/hr [id number] IV 01/17/19 15:30 02/16/19 15:29 01/18/19 04:53 Lactulose (Cephulac) 30 gm THREE TIMES A DAY ORAL 01/17/19 18:00 02/16/19 17:59 Micafungin Sodium 100 mg/Sodium Chloride 110 ml @ 110 mls/hr Q24H IVPB 01/17/19 17:00 01/24/19 16:59 01/17/19 16:41 Midodrine (Pro-Amatine) 10 mg THREE TIMES A DAY ORAL 01/17/19 18:00 02/16/19 17:59 Ondansetron HCl (Zofran) 4 mg Q6H PRN IVP Nausea & Vomiting 01/05/19 18:25 02/04/19 18:24 Pantoprazole (Protonix) 40 mg EVERY 12 HOURS ORAL 01/17/19 21:00 02/16/19 20:59 Piperacillin Sod/ Tazobactam Sod 3.375 gm/Sodium Chloride 110 ml @ 27.5 mls/hr EVERY 8 HOURS IVPB 01/17/19 18:00 01/22/19 17:59 01/18/19 05:28 Marion Schneider MD Jan 18, 2019 11:19
[2019-01-18 12:00] VITALS: BP 75/41
--- NOTE | 2019-01-18 12:30 | Diagnostic Imaging Report ---
Indication: Dyspnea Comparison: 08/08/2018 A single view chest radiograph was obtained. Findings: Pulmonary vascular congestion is present with suggestion of interstitial edema. Platelike atelectasis lung bases demonstrated. Cardiomegaly is mild. Lung volumes are low. IMPRESSION: Suspected CHF. Basal atelectasis
--- NOTE | 2019-01-18 13:48 | Cardiac Electrophysiology PN ---
Assessment/Plan Assessment/Plan 1. Hypotension and sinus tach. Off tele and comfort care. 2. Atypical Chest pain . EKG nonspecific ST-T wave abnormality. No GA. Echo EF 55% 3. Persistent hypokalemia. Corrected. 4. Leukocytosis. Abx and steroids DCed 5. ETOH Cirrhosis with Bilirubin 14. FU GI. S/P 7 liters of paracentesis 01/11/19 6. Comfort Care . NASIMA RN Subjective Subjective Is comfort care but family decided against Morphin drip Objective Last 24 Hour Vital Signs Date Time Temp Pulse Resp B/P (MAP) Pulse Ox O2 Delivery O2 Flow Rate FiO2 01/18/19 12:00 98.2 63 17 75/41 (52) 95 01/18/19 09:00 Nasal Cannula 2.0 01/18/19 09:00 62/40 (47) 01/18/19 08:00 97.9 52 17 76/52 (60) 85 01/17/19 21:00 Nasal Cannula 2.0 Intake and Output 01/17/19 01/18/19 19:00 07:00 Intake Total 335 ml 50 ml Balance 335 ml 50 ml Intake Oral 50 ml IV Total 335 ml # Voids 1 Laboratory Tests Test 01/18/19 04:50 White Blood Count 31.2 K/UL (4.8-10.8) *H Red Blood Count 2.65 M/UL (4.70-6.10) L Hemoglobin 8.3 G/DL (14.2-18.0) L Hematocrit 27.0 % (42.0-52.0) L Mean Corpuscular Volume 102 FL (80-99) H Mean Corpuscular Hemoglobin 31.2 PG (27.0-31.0) H Mean Corpuscular Hemoglobin Concent 30.7 G/DL (32.0-36.0) L Red Cell Distribution Width 16.5 % (11.6-14.8) H Platelet Count 253 K/UL (150-450) Mean Platelet Volume 7.6 FL (6.5-10.1) Neutrophils (%) (Auto) % (45.0-75.0) Lymphocytes (%) (Auto) % (20.0-45.0) Monocytes (%) (Auto) % (1.0-10.0) Eosinophils (%) (Auto) % (0.0-3.0) Basophils (%) (Auto) % (0.0-2.0) Differential Total Cells Counted 100 Neutrophils % (Manual) 84 % (45-75) H Lymphocytes % (Manual) 7 % (20-45) L Monocytes % (Manual) 3 % (1-10) Eosinophils % (Manual) 0 % (0-3) Basophils % (Manual) 0 % (0-2) Band Neutrophils 6 % (0-8) Platelet Estimate Adequate Platelet Morphology Normal Hypochromasia 2+ Anisocytosis 1+ Macrocytosis 1+ Sodium Level 141 MMOL/L (136-145) Potassium Level 4.6 MMOL/L (3.5-5.1) Chloride Level 108 MMOL/L (98-107) H Carbon Dioxide Level 14 MMOL/L (21-32) L Anion Gap 19 mmol/L (5-15) H Blood Urea Nitrogen 54 mg/dL (7-18) H Creatinine 5.4 MG/DL (0.55-1.30) H Estimat Glomerular Filtration Rate 11.0 mL/min (>60) Glucose Level 132 MG/DL (74-106) H Uric Acid 8.1 MG/DL (2.6-7.2) H Calcium Level 7.2 MG/DL (8.5-10.1) L Phosphorus Level 5.9 MG/DL (2.5-4.9) H Magnesium Level 1.9 MG/DL (1.8-2.4) Total Bilirubin 16.7 MG/DL (0.2-1.0) H Direct Bilirubin 13.7 MG/DL (0.0-0.3) H Gamma Glutamyl Transpeptidase 564 U/L (5-85) H Aspartate Amino Transf (AST/SGOT) 194 U/L (15-37) H Alanine Aminotransferase (ALT/SGPT) 28 U/L (12-78) Alkaline Phosphatase 384 U/L (46-116) H Ammonia 41 umol/L (11-32) H C-Reactive Protein, Quantitative 21.4 mg/dL (0.00-0.90) H Pro-B-Type Natriuretic Peptide 1115 pg/mL (0-125) H Total Protein 4.2 G/DL (6.4-8.2) L Albumin 0.9 G/DL (3.4-5.0) L Globulin 3.3 g/dL Albumin/Globulin Ratio 0.3 (1.0-2.7) L Objective HEENT: Jaundiced sclera Cardiovascular: normal S1 and S2 and no murmur Respiratory/Chest: normal breath sounds, no respiratory distress Abdominal Exam: Distended with ascites Extremities: 2 plus edema Franck Saeed MD Jan 18, 2019 13:48
--- NOTE | 2019-01-18 14:34 | General Progress Note ---
Assessment/Plan Problem List: (1) Abdominal pain ICD Codes: R10.9 - Unspecified abdominal pain SNOMED: 22592587 (2) Anemia ICD Codes: D64.9 - Anemia, unspecified SNOMED: 737501325 (3) Alcoholic liver disease ICD Codes: K70.9 - Alcoholic liver disease, unspecified SNOMED: 60932721 (4) Acute alcoholic gastritis ICD Codes: K29.20 - Alcoholic gastritis without bleeding SNOMED: 4546019 Qualifiers: Qualified Codes: K29.20 - Alcoholic gastritis without bleeding Status: not improved, unchanged, deteriorating Assessment/Plan: detox gi f/u cbc bmp dc plan comfort snf if clear Subjective Constitutional: Reports: weakness Allergies: Coded Allergies: No Known Allergies (Verified , 10/22/06) All Systems: reviewed and negative except above Subjective o2nc sleepy calm Objective Last 24 Hour Vital Signs Date Time Temp Pulse Resp B/P (MAP) Pulse Ox O2 Delivery O2 Flow Rate FiO2 01/18/19 12:00 98.2 63 17 75/41 (52) 95 01/18/19 09:00 Nasal Cannula 2.0 01/18/19 09:00 62/40 (47) 01/18/19 08:00 97.9 52 17 76/52 (60) 85 01/17/19 21:00 Nasal Cannula 2.0 Intake and Output 01/17/19 01/18/19 19:00 07:00 Intake Total 335 ml 50 ml Balance 335 ml 50 ml Intake Oral 50 ml IV Total 335 ml # Voids 1 Laboratory Tests 01/18/19 04:50: White Blood Count 31.2*H, Red Blood Count 2.65L, Hemoglobin 8.3L, Hematocrit 27.0L, Mean Corpuscular Volume 102H, Mean Corpuscular Hemoglobin 31.2H, Mean Corpuscular Hemoglobin Concent 30.7L, Red Cell Distribution Width 16.5H, Platelet Count 253, Mean Platelet Volume 7.6, Neutrophils (%) (Auto) , Lymphocytes (%) (Auto) , Monocytes (%) (Auto) , Eosinophils (%) (Auto) , Basophils (%) (Auto) , Differential Total Cells Counted 100, Neutrophils % ( Manual) 84H, Lymphocytes % (Manual) 7L, Monocytes % (Manual) 3, Eosinophils % ( Manual) 0, Basophils % (Manual) 0, Band Neutrophils 6, Platelet Estimate Adequate, Platelet Morphology Normal, Hypochromasia 2+, Anisocytosis 1+, Macrocytosis 1+, Sodium Level 141, Potassium Level 4.6, Chloride Level 108H, Carbon Dioxide Level 14L, Anion Gap 19H, Blood Urea Nitrogen 54H, Creatinine 5.4H, Estimat Glomerular Filtration Rate 11.0, Glucose Level 132H, Uric Acid 8.1H, Calcium Level 7.2L, Phosphorus Level 5.9H, Magnesium Level 1.9, Total Bilirubin 16.7H, Direct Bilirubin 13.7H, Gamma Glutamyl Transpeptidase 564H, Aspartate Amino Transf (AST/SGOT) 194H, Alanine Aminotransferase (ALT/SGPT) 28, Alkaline Phosphatase 384H, Ammonia 41H, C-Reactive Protein, Quantitative 21.4H, Pro-B-Type Natriuretic Peptide 1115H, Total Protein 4.2L, Albumin 0.9L, Globulin 3.3, Albumin/Globulin Ratio 0.3L Height (Feet): 5 Height (Inches): 5.00 Weight (Pounds): 189 General Appearance: lethargic EENT: normal ENT inspection Neck: normal alignment Cardiovascular: normal peripheral pulses, normal rate, regular rhythm Respiratory/Chest: chest wall non-tender, lungs clear, normal breath sounds Abdomen: normal bowel sounds, soft, distended Extremities: normal inspection Edema: no edema noted Arm (L), no edema noted Arm (R), no edema noted Leg (L), no edema noted Leg (R), no edema noted Pedal (L), no edema noted Pedal (R), no edema noted Generalized Neurologic: motor weakness Skin: normal pigmentation, warm/dry Corwin Martinez DO Jan 18, 2019 14:34
--- NOTE | 2019-01-18 15:00 | NUR ---
NURSE NOTES: Informed Dr. Martinez that patient does not have any medication for pain and that the patient's family is requesting pain medication for him. Dr. Martinez did not give any orders. Will continue to monitor.
[2019-01-18 16:00] VITALS: BP 81/50
--- NOTE | 2019-01-18 17:11 | Infectious Diseases Prog Note ---
Assessment/Plan Assessment/Plan 58 yo male with PMHx of EtOH abuse, Depression and anxiety, SI who presented to the ED on 12/29/18 with N/V and abdominal pain. Leukocytosis and single high temp- S/P Prednisone 01/09/19 Likely due to gastritis from EtOH need -MRCP : Very limited exam, as described. Normal caliber bile ducts without definite filling defects to suggest choledocholithiasis Cholelithiasis. Gallbladder wall thickening, also described on prior sonogram. Most likely on the basis of hepatocellular derangement but the possibility of acute cholecystitis should also be considered. Ascites. Abnormal hepatic morphology, also previously described, suggestive of cirrhotic change -Abd US: Hepatomegaly. Coarsened hepatic echogenicity and surface nodularitysuggests cirrhosis. Ascites, not demonstrated previously. Cholelithiasis and gallbladder sludge, not evident previously. Gallbladder wall thickening and pericholecystic fluid, probably due to the hepatocellular derangements, but the possibility of acute cholecystitis should also be considered. Correlate with clinical findings, consider nuclear medicine hepatobiliary scan if clinically indicated. Negative for dilated bile ducts. Incidental finding small left renal cyst -CT abd/p: Chronic liver disease/cirrhosis with fatty infiltration, enlargement of the liver and stigmata of portal hypertension including ascites and splenomegaly, recanalized umbilical vein. Basilar atelectasis. Probable gallstones. Tiny bilateral renal hypodensities too small to characterize.Fecal impaction Cirrhosis EtOH abuse Hep A/B/C - Neg Paracentesis Cx 01/11/19 - Neg Depression and anxiety SI HIV (-) PLAN: - If consistent with goals of care, continue Zosyn #12 and Micafungin #2 -01/16 SP ZOsyn #10 - 01/08/19 S/P Levofloxacin #6 and Flagyl #6 - 01/03/19 S/P Zosyn #5 -u/a, ucx, Bcx x2 -CXR, CBC, CMP am -aspiration precautions -goals of care discussion ongoing- agree with Hospice eval Subjective Allergies: Coded Allergies: No Known Allergies (Verified , 10/22/06) Subjective afebrile wbc icnreased to 30s Objective Vital Signs Last 24 Hour Vital Signs Date Time Temp Pulse Resp B/P (MAP) Pulse Ox O2 Delivery O2 Flow Rate FiO2 01/18/19 16:00 97.1 68 18 81/50 (60) 96 01/18/19 12:00 98.2 63 17 75/41 (52) 95 01/18/19 09:00 Nasal Cannula 2.0 01/18/19 09:00 62/40 (47) 01/18/19 08:00 97.9 52 17 76/52 (60) 85 01/17/19 21:00 Nasal Cannula 2.0 Height (Feet): 5 Height (Inches): 5.00 Weight (Pounds): 189 Objective Gen: NAD HEENT: NCAT, MMM, EOMI, PERRL, No Oral lesion, no scleral icterus but blood shot NECK: full range of motion, supple, no meningismus, No LAD, No JVD LUNGS: CTAB, No W/C, No Accessory muscle use CARDS: RRR, S1, S2, No M/R/G, ABD: Soft, Epigastric pain, ND, No R/G, + BS, No HSM, No Masses : Deferred Ext: C/C/E, Pulses 2+ B/L (DP, Rad): NEURO: A/O x 4, Strength and Sensation Grossly intact PSYCH: Depressed SKIN: Warm/dry, No rashes Laboratory Tests Test 01/18/19 04:50 White Blood Count 31.2 K/UL (4.8-10.8) *H Red Blood Count 2.65 M/UL (4.70-6.10) L Hemoglobin 8.3 G/DL (14.2-18.0) L Hematocrit 27.0 % (42.0-52.0) L Mean Corpuscular Volume 102 FL (80-99) H Mean Corpuscular Hemoglobin 31.2 PG (27.0-31.0) H Mean Corpuscular Hemoglobin Concent 30.7 G/DL (32.0-36.0) L Red Cell Distribution Width 16.5 % (11.6-14.8) H Platelet Count 253 K/UL (150-450) Mean Platelet Volume 7.6 FL (6.5-10.1) Neutrophils (%) (Auto) % (45.0-75.0) Lymphocytes (%) (Auto) % (20.0-45.0) Monocytes (%) (Auto) % (1.0-10.0) Eosinophils (%) (Auto) % (0.0-3.0) Basophils (%) (Auto) % (0.0-2.0) Differential Total Cells Counted 100 Neutrophils % (Manual) 84 % (45-75) H Lymphocytes % (Manual) 7 % (20-45) L Monocytes % (Manual) 3 % (1-10) Eosinophils % (Manual) 0 % (0-3) Basophils % (Manual) 0 % (0-2) Band Neutrophils 6 % (0-8) Platelet Estimate Adequate Platelet Morphology Normal Hypochromasia 2+ Anisocytosis 1+ Macrocytosis 1+ Sodium Level 141 MMOL/L (136-145) Potassium Level 4.6 MMOL/L (3.5-5.1) Chloride Level 108 MMOL/L (98-107) H Carbon Dioxide Level 14 MMOL/L (21-32) L Anion Gap 19 mmol/L (5-15) H Blood Urea Nitrogen 54 mg/dL (7-18) H Creatinine 5.4 MG/DL (0.55-1.30) H Estimat Glomerular Filtration Rate 11.0 mL/min (>60) Glucose Level 132 MG/DL (74-106) H Uric Acid 8.1 MG/DL (2.6-7.2) H Calcium Level 7.2 MG/DL (8.5-10.1) L Phosphorus Level 5.9 MG/DL (2.5-4.9) H Magnesium Level 1.9 MG/DL (1.8-2.4) Total Bilirubin 16.7 MG/DL (0.2-1.0) H Direct Bilirubin 13.7 MG/DL (0.0-0.3) H Gamma Glutamyl Transpeptidase 564 U/L (5-85) H Aspartate Amino Transf (AST/SGOT) 194 U/L (15-37) H Alanine Aminotransferase (ALT/SGPT) 28 U/L (12-78) Alkaline Phosphatase 384 U/L (46-116) H Ammonia 41 umol/L (11-32) H C-Reactive Protein, Quantitative 21.4 mg/dL (0.00-0.90) H Pro-B-Type Natriuretic Peptide 1115 pg/mL (0-125) H Total Protein 4.2 G/DL (6.4-8.2) L Albumin 0.9 G/DL (3.4-5.0) L Globulin 3.3 g/dL Albumin/Globulin Ratio 0.3 (1.0-2.7) L Current Medications Medications (Trade) Dose Ordered Sig/Clyde Route PRN Reason Start Time Stop Time Status Last Admin Dose Admin Chlorhexidine Gluconate (Sharmila-Hex 2%) 1 applic DAILY@2000 TOPIC 01/05/19 20:00 02/01/19 19:59 01/17/19 20:00 Dextrose (Dextrose 50%) 50 ml Q30M PRN IV Hypoglycemia 01/05/19 18:30 01/28/19 16:29 Dextrose/Sodium Chloride 1,000 ml @ 75 mls/hr [id number] IV 01/17/19 15:30 02/16/19 15:29 01/18/19 04:53 Lactulose (Cephulac) 30 gm THREE TIMES A DAY ORAL 01/17/19 18:00 02/16/19 17:59 Micafungin Sodium 100 mg/Sodium Chloride 110 ml @ 110 mls/hr Q24H IVPB 01/17/19 17:00 01/24/19 16:59 01/17/19 16:41 Midodrine (Pro-Amatine) 10 mg THREE TIMES A DAY ORAL 01/17/19 18:00 02/16/19 17:59 Ondansetron HCl (Zofran) 4 mg Q6H PRN IVP Nausea & Vomiting 01/05/19 18:25 02/04/19 18:24 Pantoprazole (Protonix) 40 mg EVERY 12 HOURS ORAL 01/17/19 21:00 02/16/19 20:59 Piperacillin Sod/ Tazobactam Sod 2.25 gm/Dextrose 55 ml @ 110 mls/hr Q8HR IV 01/18/19 22:00 01/22/19 23:59 Carmen Berumen M.D. Jan 18, 2019 17:11
--- NOTE | 2019-01-18 17:24 | Nephrology Progress Note ---
Assessment/Plan Problem List: (1) SHABBIR (acute kidney injury) Assessment: likely hepatorenal (2) Alcoholic liver disease (3) Anemia (4) Electrolyte disorder (5) Jaundice Assessment Acute Alcoholic Gastritis / Encephalopathy - Intoxication Alcoholic Hepatitis Anemia Hypokalemia Psych disease Plan patient is DNR again hypotensive in that case need fresh lab results for further management. Will discuss previously PO steroids on hold by GI has PICC Monitor lytes / Lfts per orders Subjective ROS Limited/Unobtainable: No Constitutional: Reports: malaise, weakness Objective Objective Last 24 Hour Vital Signs Date Time Temp Pulse Resp B/P (MAP) Pulse Ox O2 Delivery O2 Flow Rate FiO2 01/18/19 16:00 97.1 68 18 81/50 (60) 96 01/18/19 12:00 98.2 63 17 75/41 (52) 95 01/18/19 09:00 Nasal Cannula 2.0 01/18/19 09:00 62/40 (47) 01/18/19 08:00 97.9 52 17 76/52 (60) 85 01/17/19 21:00 Nasal Cannula 2.0 Intake and Output 01/17/19 01/18/19 19:00 07:00 Intake Total 335 ml 50 ml Balance 335 ml 50 ml Intake Oral 50 ml IV Total 335 ml # Voids 1 Laboratory Tests 01/18/19 04:50: White Blood Count 31.2*H, Red Blood Count 2.65L, Hemoglobin 8.3L, Hematocrit 27.0L, Mean Corpuscular Volume 102H, Mean Corpuscular Hemoglobin 31.2H, Mean Corpuscular Hemoglobin Concent 30.7L, Red Cell Distribution Width 16.5H, Platelet Count 253, Mean Platelet Volume 7.6, Neutrophils (%) (Auto) , Lymphocytes (%) (Auto) , Monocytes (%) (Auto) , Eosinophils (%) (Auto) , Basophils (%) (Auto) , Differential Total Cells Counted 100, Neutrophils % ( Manual) 84H, Lymphocytes % (Manual) 7L, Monocytes % (Manual) 3, Eosinophils % ( Manual) 0, Basophils % (Manual) 0, Band Neutrophils 6, Platelet Estimate Adequate, Platelet Morphology Normal, Hypochromasia 2+, Anisocytosis 1+, Macrocytosis 1+, Sodium Level 141, Potassium Level 4.6, Chloride Level 108H, Carbon Dioxide Level 14L, Anion Gap 19H, Blood Urea Nitrogen 54H, Creatinine 5.4H, Estimat Glomerular Filtration Rate 11.0, Glucose Level 132H, Uric Acid 8.1H, Calcium Level 7.2L, Phosphorus Level 5.9H, Magnesium Level 1.9, Total Bilirubin 16.7H, Direct Bilirubin 13.7H, Gamma Glutamyl Transpeptidase 564H, Aspartate Amino Transf (AST/SGOT) 194H, Alanine Aminotransferase (ALT/SGPT) 28, Alkaline Phosphatase 384H, Ammonia 41H, C-Reactive Protein, Quantitative 21.4H, Pro-B-Type Natriuretic Peptide 1115H, Total Protein 4.2L, Albumin 0.9L, Globulin 3.3, Albumin/Globulin Ratio 0.3L Height (Feet): 5 Height (Inches): 5.00 Weight (Pounds): 189 General Appearance: no apparent distress, lethargic, other - hypotensive Cardiovascular: bradycardia Respiratory/Chest: decreased breath sounds Abdomen: distended Objective no change Leonard Bautista MD Jan 18, 2019 17:24
[2019-01-18] MEDS: Micafungin 100 MG in NS 110 ML IVPB SCH (17:44)
--- NOTE | 2019-01-18 19:37 | NUR ---
HAND-OFF: Report given to Jenny SOUTH. Endorsed to follow up with MD for pain medication orders.
--- NOTE | 2019-01-18 19:38 | NUR ---
NURSE NOTES: Received report & pt from BRANNON Bullock. Pt lying in bed, awake, on O2 via NC @ 2LPM, family members at bedside. No s/s of acute distress & no c/o pain at this time. Will f/u with Dr. Schneider re: pt's family's request for IV pain med. Bed in lowest position, call light within reach. Will continue to monitor.
[2019-01-18 20:00] VITALS: BP 76/45
--- NOTE | 2019-01-18 20:00 | NUR ---
NURSE NOTES: Got an order from Dr. Schneider for Morphine Sulfate 4mg IVP Q2HR PRN for pain. Order carried out.
[2019-01-18] MEDS: Morphine Sulfate 4mg/ml Inj (IV USE ONLY) IVP PRN (20:46)
[2019-01-18] MEDS: Zosyn 2.25 gm in D5W 55ml IV SCH (22:11)
[2019-01-19] VITALS: BP 76/45
[2019-01-19 04:00] VITALS: BP 93/51
[2019-01-19] MEDS: Zosyn 2.25 gm in D5W 55ml IV SCH ×3 (05:47→21:59)
[2019-01-19] MEDS: D5NS 1,000 ML IV SCH (06:32)
--- NOTE | 2019-01-19 07:20 | NUR ---
NURSE NOTES: Report received from Jenny RN, rounds made. Patient sleeping (arousable to name) in semi-fowlers position, in bed. No distress noted on O2 3LNC. IVF D5 NS at 75 ml/hr infusing to RFA, site asymptomatic. Call light in reach, bed in lowest position, will continue to monitor.
--- NOTE | 2019-01-19 07:30 | NUR ---
HAND-OFF: Report given to BRANNON Becker. Pt in stable condition. Rounds done.
[2019-01-19 08:00] VITALS: BP 89/56
--- NOTE | 2019-01-19 08:18 | General Progress Note ---
Assessment/Plan Problem List: (1) Elevated LFTs ICD Codes: R94.5 - Abnormal results of liver function studies SNOMED: 671794021, 606789823 (2) Esophagitis ICD Codes: K20.9 - Esophagitis, unspecified SNOMED: 67681885 (3) Acute alcoholic gastritis ICD Codes: K29.20 - Alcoholic gastritis without bleeding SNOMED: 3642684 Qualifiers: Qualified Codes: K29.20 - Alcoholic gastritis without bleeding (4) Alcoholic liver disease ICD Codes: K70.9 - Alcoholic liver disease, unspecified SNOMED: 56979735 Status: not improved, unchanged, deteriorating Assessment/Plan: Imaging noted, cirrhosis >> rising bili US with doppler r/o Budd-Chiari Syndrome>> negative OB stool negative Stable H&H discriminant function calculated, patient will benefit from glucocorticoid therapy >> held due to elevated WBC Paracentesis yielding 7.4L , rule out SBP >> negative lactulose + xifaxan bowel regimen ppi fu labs fu neurology recs poor prognosis hospice now Subjective ROS Limited/Unobtainable: No Allergies: Coded Allergies: No Known Allergies (Verified , 10/22/06) Objective Last 24 Hour Vital Signs Date Time Temp Pulse Resp B/P (MAP) Pulse Ox O2 Delivery O2 Flow Rate FiO2 01/19/19 04:00 96.4 107 16 93/51 (65) 91 01/19/19 00:00 97.7 105 16 76/45 (55) 97 01/18/19 21:00 Nasal Cannula 2.0 01/18/19 20:00 97.6 103 16 76/45 (55) 99 01/18/19 16:00 97.1 68 18 81/50 (60) 96 01/18/19 12:00 98.2 63 17 75/41 (52) 95 01/18/19 09:00 Nasal Cannula 2.0 01/18/19 09:00 62/40 (47) Intake and Output 01/18/19 01/19/19 18:59 06:59 Intake Total 1102.5 ml 750 ml Balance 1102.5 ml 750 ml Intake Oral 10 ml IV Total 1092.5 ml 750 ml # Voids 1 2 Height (Feet): 5 Height (Inches): 5.00 Weight (Pounds): 189 General Appearance: lethargic EENT: scleral icterus Neck: supple Cardiovascular: normal rate Respiratory/Chest: decreased breath sounds Abdomen: normal bowel sounds, non tender, soft Extremities: non-tender Jarod Rich MD Jan 19, 2019 08:18
[2019-01-19 08:38] LABS: HEMATOCRIT 29.6 % (42.0-52.0); HEMOGLOBIN 9.2 G/DL (14.2-18.0); MEAN CORPUSCULAR VOLUME 99 FL (80-99); PLATELET COUNT 227 K/UL (150-450); RED BLOOD COUNT 2.99 M/UL (4.70-6.10); RED CELL DISTRIBUTION WIDTH 16.8 % (11.6-14.8)
[2019-01-19 08:46] LABS: WHITE BLOOD COUNT 31.1 K/UL (4.8-10.8)
[2019-01-19] MEDS: Midodrine 10mg tab ORAL SCH ×3 (09:00→18:00)
[2019-01-19] MEDS: Lactulose 20gm/30ml UDC ORAL SCH ×3 (09:00→18:00)
[2019-01-19 09:16] LABS: ALANINE AMINOTRANSFERASE 25 U/L (12-78); ALBUMIN 0.9 G/DL (3.4-5.0); ALBUMIN/GLOBULIN RATIO 0.2 (1.0-2.7); ALKALINE PHOSPHATASE 360 U/L (46-116); ANION GAP 15 mmol/L (5-15); ASPARTATE AMINO TRANSFERASE 96 U/L (15-37); BILIRUBIN,DIRECT 14.5 MG/DL (0.0-0.3); BILIRUBIN,TOTAL 17.8 MG/DL (0.2-1.0); BLOOD UREA NITROGEN 67 mg/dL (7-18); CALCIUM 6.8 MG/DL (8.5-10.1); CARBON DIOXIDE 16 MMOL/L (21-32); CHLORIDE 111 MMOL/L (98-107); CREATININE 6.2 MG/DL (0.55-1.30); POTASSIUM 4.6 MMOL/L (3.5-5.1); SODIUM 142 MMOL/L (136-145)
--- NOTE | 2019-01-19 10:37 | Cardiac Electrophysiology PN ---
Assessment/Plan Assessment/Plan 1. Hypotension and sinus tach. Off tele. On Abx. 2. Atypical Chest pain . EKG nonspecific ST-T wave abnormality. No AK. Echo EF 55% 3. Persistent hypokalemia. Corrected. 4. Leukocytosis.WBC 31K today. On iv Abx 5. ETOH Cirrhosis with Bilirubin 14. FU GI. S/P 7 liters of paracentesis 01/11/19 6. Comfort Care . NASIMA RN Subjective Subjective Is comfort care. Family refusing Morphin drip Objective Last 24 Hour Vital Signs Date Time Temp Pulse Resp B/P (MAP) Pulse Ox O2 Delivery O2 Flow Rate FiO2 01/19/19 08:00 98.5 111 22 89/56 (67) 86 01/19/19 04:00 96.4 107 16 93/51 (65) 91 01/19/19 00:00 97.7 105 16 76/45 (55) 97 01/18/19 21:00 Nasal Cannula 2.0 01/18/19 20:00 97.6 103 16 76/45 (55) 99 01/18/19 16:00 97.1 68 18 81/50 (60) 96 01/18/19 12:00 98.2 63 17 75/41 (52) 95 Intake and Output 01/18/19 01/19/19 18:59 06:59 Intake Total 1102.5 ml 750 ml Balance 1102.5 ml 750 ml Intake Oral 10 ml IV Total 1092.5 ml 750 ml # Voids 1 2 Laboratory Tests Test 01/19/19 08:20 White Blood Count 31.1 K/UL (4.8-10.8) *H Red Blood Count 2.99 M/UL (4.70-6.10) L Hemoglobin 9.2 G/DL (14.2-18.0) L Hematocrit 29.6 % (42.0-52.0) L Mean Corpuscular Volume 99 FL (80-99) Mean Corpuscular Hemoglobin 30.8 PG (27.0-31.0) Mean Corpuscular Hemoglobin Concent 31.1 G/DL (32.0-36.0) L Red Cell Distribution Width 16.8 % (11.6-14.8) H Platelet Count 227 K/UL (150-450) Mean Platelet Volume 7.4 FL (6.5-10.1) Neutrophils (%) (Auto) % (45.0-75.0) Lymphocytes (%) (Auto) % (20.0-45.0) Monocytes (%) (Auto) % (1.0-10.0) Eosinophils (%) (Auto) % (0.0-3.0) Basophils (%) (Auto) % (0.0-2.0) Differential Total Cells Counted 100 Neutrophils % (Manual) 85 % (45-75) H Lymphocytes % (Manual) 1 % (20-45) L Monocytes % (Manual) 9 % (1-10) Eosinophils % (Manual) 0 % (0-3) Basophils % (Manual) 0 % (0-2) Band Neutrophils 5 % (0-8) Platelet Estimate Adequate Platelet Morphology Normal Anisocytosis 1+ Target Cells 1+ Sodium Level 142 MMOL/L (136-145) Potassium Level 4.6 MMOL/L (3.5-5.1) Chloride Level 111 MMOL/L (98-107) H Carbon Dioxide Level 16 MMOL/L (21-32) L Anion Gap 15 mmol/L (5-15) Blood Urea Nitrogen 67 mg/dL (7-18) H Creatinine 6.2 MG/DL (0.55-1.30) H Estimat Glomerular Filtration Rate 9.4 mL/min (>60) Glucose Level 136 MG/DL (74-106) H Calcium Level 6.8 MG/DL (8.5-10.1) L Total Bilirubin 17.8 MG/DL (0.2-1.0) H Direct Bilirubin 14.5 MG/DL (0.0-0.3) H Aspartate Amino Transf (AST/SGOT) 96 U/L (15-37) H Alanine Aminotransferase (ALT/SGPT) 25 U/L (12-78) Alkaline Phosphatase 360 U/L (46-116) H Total Protein 4.7 G/DL (6.4-8.2) L Albumin 0.9 G/DL (3.4-5.0) L Globulin 3.8 g/dL Albumin/Globulin Ratio 0.2 (1.0-2.7) L Microbiology Date/Time Source Procedure Growth Status 01/17/19 16:09 Blood Blood Culture - Preliminary NO GROWTH AFTER 24 HOURS Resulted 01/17/19 16:05 Blood Blood Culture - Preliminary NO GROWTH AFTER 24 HOURS Resulted Objective HEENT: Jaundiced sclera Cardiovascular: normal S1 and S2 and no murmur Respiratory/Chest: normal breath sounds, no respiratory distress Abdominal Exam: Distended with ascites Extremities: 2 plus edema Franck Saeed MD Jan 19, 2019 10:37
--- NOTE | 2019-01-19 10:44 | Infectious Diseases Prog Note ---
Assessment/Plan Assessment/Plan 58 yo male with PMHx of EtOH abuse, Depression and anxiety, SI who presented to the ED on 12/29/18 with N/V and abdominal pain. Leukocytosis and single high temp- S/P Prednisone 01/09/19 Likely due to gastritis from EtOH need -MRCP : Very limited exam, as described. Normal caliber bile ducts without definite filling defects to suggest choledocholithiasis Cholelithiasis. Gallbladder wall thickening, also described on prior sonogram. Most likely on the basis of hepatocellular derangement but the possibility of acute cholecystitis should also be considered. Ascites. Abnormal hepatic morphology, also previously described, suggestive of cirrhotic change -Abd US: Hepatomegaly. Coarsened hepatic echogenicity and surface nodularitysuggests cirrhosis. Ascites, not demonstrated previously. Cholelithiasis and gallbladder sludge, not evident previously. Gallbladder wall thickening and pericholecystic fluid, probably due to the hepatocellular derangements, but the possibility of acute cholecystitis should also be considered. Correlate with clinical findings, consider nuclear medicine hepatobiliary scan if clinically indicated. Negative for dilated bile ducts. Incidental finding small left renal cyst -CT abd/p: Chronic liver disease/cirrhosis with fatty infiltration, enlargement of the liver and stigmata of portal hypertension including ascites and splenomegaly, recanalized umbilical vein. Basilar atelectasis. Probable gallstones. Tiny bilateral renal hypodensities too small to characterize.Fecal impaction Cirrhosis EtOH abuse Hep A/B/C - Neg Paracentesis Cx 01/11/19 - Neg Depression and anxiety SI HIV (-) PLAN: - If consistent with goals of care, continue Zosyn #13 and Micafungin #3 -01/16 SP ZOsyn #10 - 01/08/19 S/P Levofloxacin #6 and Flagyl #6 - 01/03/19 S/P Zosyn #5 -u/a, ucx, Bcx x2 -CXR, CBC, CMP am -aspiration precautions -goals of care discussion ongoing- agree with Hospice eval Subjective Allergies: Coded Allergies: No Known Allergies (Verified , 10/22/06) Subjective afebrile wbc icnreased to 30s Objective Vital Signs Last 24 Hour Vital Signs Date Time Temp Pulse Resp B/P (MAP) Pulse Ox O2 Delivery O2 Flow Rate FiO2 01/19/19 08:00 98.5 111 22 89/56 (67) 86 01/19/19 04:00 96.4 107 16 93/51 (65) 91 01/19/19 00:00 97.7 105 16 76/45 (55) 97 01/18/19 21:00 Nasal Cannula 2.0 01/18/19 20:00 97.6 103 16 76/45 (55) 99 01/18/19 16:00 97.1 68 18 81/50 (60) 96 01/18/19 12:00 98.2 63 17 75/41 (52) 95 Height (Feet): 5 Height (Inches): 5.00 Weight (Pounds): 189 Objective Gen: NAD HEENT: NCAT, MMM, EOMI, PERRL, No Oral lesion, no scleral icterus but blood shot NECK: full range of motion, supple, no meningismus, No LAD, No JVD LUNGS: CTAB, No W/C, No Accessory muscle use CARDS: RRR, S1, S2, No M/R/G, ABD: Soft, Epigastric pain, ND, No R/G, + BS, No HSM, No Masses : Deferred Ext: C/C/E, Pulses 2+ B/L (DP, Rad): NEURO: A/O x 4, Strength and Sensation Grossly intact PSYCH: Depressed SKIN: Warm/dry, No rashes Microbiology Date/Time Source Procedure Growth Status 01/17/19 16:09 Blood Blood Culture - Preliminary NO GROWTH AFTER 24 HOURS Resulted 01/17/19 16:05 Blood Blood Culture - Preliminary NO GROWTH AFTER 24 HOURS Resulted Laboratory Tests Test 01/19/19 08:20 White Blood Count 31.1 K/UL (4.8-10.8) *H Red Blood Count 2.99 M/UL (4.70-6.10) L Hemoglobin 9.2 G/DL (14.2-18.0) L Hematocrit 29.6 % (42.0-52.0) L Mean Corpuscular Volume 99 FL (80-99) Mean Corpuscular Hemoglobin 30.8 PG (27.0-31.0) Mean Corpuscular Hemoglobin Concent 31.1 G/DL (32.0-36.0) L Red Cell Distribution Width 16.8 % (11.6-14.8) H Platelet Count 227 K/UL (150-450) Mean Platelet Volume 7.4 FL (6.5-10.1) Neutrophils (%) (Auto) % (45.0-75.0) Lymphocytes (%) (Auto) % (20.0-45.0) Monocytes (%) (Auto) % (1.0-10.0) Eosinophils (%) (Auto) % (0.0-3.0) Basophils (%) (Auto) % (0.0-2.0) Differential Total Cells Counted 100 Neutrophils % (Manual) 85 % (45-75) H Lymphocytes % (Manual) 1 % (20-45) L Monocytes % (Manual) 9 % (1-10) Eosinophils % (Manual) 0 % (0-3) Basophils % (Manual) 0 % (0-2) Band Neutrophils 5 % (0-8) Platelet Estimate Adequate Platelet Morphology Normal Anisocytosis 1+ Target Cells 1+ Sodium Level 142 MMOL/L (136-145) Potassium Level 4.6 MMOL/L (3.5-5.1) Chloride Level 111 MMOL/L (98-107) H Carbon Dioxide Level 16 MMOL/L (21-32) L Anion Gap 15 mmol/L (5-15) Blood Urea Nitrogen 67 mg/dL (7-18) H Creatinine 6.2 MG/DL (0.55-1.30) H Estimat Glomerular Filtration Rate 9.4 mL/min (>60) Glucose Level 136 MG/DL (74-106) H Calcium Level 6.8 MG/DL (8.5-10.1) L Total Bilirubin 17.8 MG/DL (0.2-1.0) H Direct Bilirubin 14.5 MG/DL (0.0-0.3) H Aspartate Amino Transf (AST/SGOT) 96 U/L (15-37) H Alanine Aminotransferase (ALT/SGPT) 25 U/L (12-78) Alkaline Phosphatase 360 U/L (46-116) H Total Protein 4.7 G/DL (6.4-8.2) L Albumin 0.9 G/DL (3.4-5.0) L Globulin 3.8 g/dL Albumin/Globulin Ratio 0.2 (1.0-2.7) L Current Medications Medications (Trade) Dose Ordered Sig/Clyde Route PRN Reason Start Time Stop Time Status Last Admin Dose Admin Dextrose (Dextrose 50%) 50 ml Q30M PRN IV Hypoglycemia 01/05/19 18:30 01/28/19 16:29 Dextrose/Sodium Chloride 1,000 ml @ 75 mls/hr [id number] IV 01/17/19 15:30 02/16/19 15:29 01/19/19 06:32 Lactulose (Cephulac) 30 gm THREE TIMES A DAY ORAL 01/17/19 18:00 02/16/19 17:59 Micafungin Sodium 100 mg/Sodium Chloride 110 ml @ 110 mls/hr Q24H IVPB 01/17/19 17:00 01/24/19 16:59 01/18/19 17:44 Midodrine (Pro-Amatine) 10 mg THREE TIMES A DAY ORAL 01/17/19 18:00 02/16/19 17:59 Morphine Sulfate (Morphine Sulfate) 4 mg Q2H PRN IVP For Pain (4-10) 01/18/19 20:00 01/25/19 19:59 01/18/19 20:46 Ondansetron HCl (Zofran) 4 mg Q6H PRN IVP Nausea & Vomiting 01/05/19 18:25 02/04/19 18:24 Pantoprazole (Protonix) 40 mg EVERY 12 HOURS ORAL 01/17/19 21:00 02/16/19 20:59 Piperacillin Sod/ Tazobactam Sod 2.25 gm/Dextrose 55 ml @ 110 mls/hr Q8HR IV 01/18/19 22:00 01/22/19 23:59 01/19/19 05:47 Carmen Berumen M.D. Jan 19, 2019 10:44
--- NOTE | 2019-01-19 12:00 | NUR ---
NURSE NOTES: Oral mouth care provided every 1-2 hours, swab, suctioned and lip moisturizer applied by RN. Instructed family not to feed patient if he cannot keep his eyes open to prevent aspiration, verbalized understanding. Patient repositioned every 2 hours, skin care provided, patient incontinent of urine. Skin remains jaundice, edematous to BLE and intact. Will continue to monitor.
[2019-01-19 12:02] VITALS: BP 77/45
--- NOTE | 2019-01-19 12:07 | NUR ---
CASE MANAGEMENT:REVIEW 01/19/19 SI: ACUTE ENCEPHALOPATHY. SEPSIS ACUTE ALCOHOLIC GASTRITIS. ESOPHAGITIS 98.5 111 22 89/56 91% ON 2L/NC WBC+31.1 H/H-9.2/29.6 BUN+67 CR+6.2 TBILI+17.8 DBILI+14.5 IS: IV ZOSYN Q8HRS IV MICAFUNGIN Q24 IV F@75/HR IV MORPHINE Q2HRS PRN PROTONIX PO Q12 MIDODRINE PO TID LACTULOSE PO TID : MED/SURG STATUS 3 EAST DCP: PLAN: PATIENT'S SISTER/CONSERVATOR RESIGNED FROM MAKING DECISIONS D/T [employer] [employer] CALLED [employer] YESTERDAY...ALL CALLS WENT TO VOICEMAIL AND NO RETURN CALLS
--- NOTE | 2019-01-19 13:25 | NUR ---
*-* INSURANCE *-* UPDATED CLINICALS & REVIEWS HAVE BEEN FAXED TO [facility]NAM[facility]: DOMINGUEZ Iglesias P- [phone] F- [phone].....REVIEW/CLINICAL
--- NOTE | 2019-01-19 14:39 | General Progress Note ---
Assessment/Plan Problem List: (1) Abdominal pain ICD Codes: R10.9 - Unspecified abdominal pain SNOMED: 96017596 (2) Anemia ICD Codes: D64.9 - Anemia, unspecified SNOMED: 793885724 (3) Alcoholic liver disease ICD Codes: K70.9 - Alcoholic liver disease, unspecified SNOMED: 26871101 (4) Acute alcoholic gastritis ICD Codes: K29.20 - Alcoholic gastritis without bleeding SNOMED: 6580847 Qualifiers: Qualified Codes: K29.20 - Alcoholic gastritis without bleeding Status: not improved, unchanged, deteriorating Assessment/Plan: detox gi f/u cbc bmp dc plan comfort snf if clear Subjective Constitutional: Reports: weakness Allergies: Coded Allergies: No Known Allergies (Verified , 10/22/06) All Systems: reviewed and negative except above Subjective o2nc sleepy calm Objective Last 24 Hour Vital Signs Date Time Temp Pulse Resp B/P (MAP) Pulse Ox O2 Delivery O2 Flow Rate FiO2 01/19/19 12:02 97.9 72 15 77/45 (56) 90 01/19/19 08:00 98.5 111 22 89/56 (67) 86 01/19/19 04:00 96.4 107 16 93/51 (65) 91 01/19/19 00:00 97.7 105 16 76/45 (55) 97 01/18/19 21:00 Nasal Cannula 2.0 01/18/19 20:00 97.6 103 16 76/45 (55) 99 01/18/19 16:00 97.1 68 18 81/50 (60) 96 Intake and Output 01/18/19 01/19/19 19:00 07:00 Intake Total 1102.5 ml 750 ml Balance 1102.5 ml 750 ml Intake Oral 10 ml IV Total 1092.5 ml 750 ml # Voids 1 2 Laboratory Tests 01/19/19 08:20: White Blood Count 31.1*H, Red Blood Count 2.99L, Hemoglobin 9.2L, Hematocrit 29.6L, Mean Corpuscular Volume 99, Mean Corpuscular Hemoglobin 30.8, Mean Corpuscular Hemoglobin Concent 31.1L, Red Cell Distribution Width 16.8H, Platelet Count 227, Mean Platelet Volume 7.4, Neutrophils (%) (Auto) , Lymphocytes (%) (Auto) , Monocytes (%) (Auto) , Eosinophils (%) (Auto) , Basophils (%) (Auto) , Differential Total Cells Counted 100, Neutrophils % ( Manual) 85H, Lymphocytes % (Manual) 1L, Monocytes % (Manual) 9, Eosinophils % ( Manual) 0, Basophils % (Manual) 0, Band Neutrophils 5, Platelet Estimate Adequate, Platelet Morphology Normal, Anisocytosis 1+, Target Cells 1+, Sodium Level 142, Potassium Level 4.6, Chloride Level 111H, Carbon Dioxide Level 16L, Anion Gap 15, Blood Urea Nitrogen 67H, Creatinine 6.2H, Estimat Glomerular Filtration Rate 9.4, Glucose Level 136H, Calcium Level 6.8L, Total Bilirubin 17.8H, Direct Bilirubin 14.5H, Aspartate Amino Transf (AST/SGOT) 96H, Alanine Aminotransferase (ALT/SGPT) 25, Alkaline Phosphatase 360H, Total Protein 4.7L, Albumin 0.9L, Globulin 3.8, Albumin/Globulin Ratio 0.2L Height (Feet): 5 Height (Inches): 5.00 Weight (Pounds): 189 General Appearance: lethargic EENT: normal ENT inspection Neck: normal alignment Cardiovascular: normal peripheral pulses, normal rate, regular rhythm Respiratory/Chest: chest wall non-tender, lungs clear, normal breath sounds Abdomen: soft, distended Extremities: normal inspection Edema: no edema noted Arm (L), no edema noted Arm (R), no edema noted Leg (L), no edema noted Leg (R), no edema noted Pedal (L), no edema noted Pedal (R), no edema noted Generalized Neurologic: motor weakness Skin: normal pigmentation, warm/dry Corwin Martinez DO Jan 19, 2019 14:39
[2019-01-19 15:50] VITALS: BP 85/61
--- NOTE | 2019-01-19 16:01 | Nephrology Progress Note ---
Assessment/Plan Problem List: (1) SHABBIR (acute kidney injury) Assessment: likely hepatorenal (2) Alcoholic liver disease (3) Anemia (4) Electrolyte disorder (5) Jaundice Assessment Acute Alcoholic Gastritis / Encephalopathy - Intoxication Alcoholic Hepatitis Anemia Hypokalemia Psych disease Plan patient is DNR again hypotensive BP 70s in that case need fresh lab results for further management. Will discuss previously PO steroids on hold by GI has PICC Monitor lytes / Lfts per orders Subjective ROS Limited/Unobtainable: No Constitutional: Reports: malaise, weakness Objective Objective Last 24 Hour Vital Signs Date Time Temp Pulse Resp B/P (MAP) Pulse Ox O2 Delivery O2 Flow Rate FiO2 01/19/19 12:02 97.9 72 15 77/45 (56) 90 01/19/19 08:00 98.5 111 22 89/56 (67) 86 01/19/19 04:00 96.4 107 16 93/51 (65) 91 01/19/19 00:00 97.7 105 16 76/45 (55) 97 01/18/19 21:00 Nasal Cannula 2.0 01/18/19 20:00 97.6 103 16 76/45 (55) 99 01/18/19 16:00 97.1 68 18 81/50 (60) 96 Intake and Output 01/18/19 01/19/19 19:00 07:00 Intake Total 1102.5 ml 750 ml Balance 1102.5 ml 750 ml Intake Oral 10 ml IV Total 1092.5 ml 750 ml # Voids 1 2 Laboratory Tests 01/19/19 08:20: White Blood Count 31.1*H, Red Blood Count 2.99L, Hemoglobin 9.2L, Hematocrit 29.6L, Mean Corpuscular Volume 99, Mean Corpuscular Hemoglobin 30.8, Mean Corpuscular Hemoglobin Concent 31.1L, Red Cell Distribution Width 16.8H, Platelet Count 227, Mean Platelet Volume 7.4, Neutrophils (%) (Auto) , Lymphocytes (%) (Auto) , Monocytes (%) (Auto) , Eosinophils (%) (Auto) , Basophils (%) (Auto) , Differential Total Cells Counted 100, Neutrophils % ( Manual) 85H, Lymphocytes % (Manual) 1L, Monocytes % (Manual) 9, Eosinophils % ( Manual) 0, Basophils % (Manual) 0, Band Neutrophils 5, Platelet Estimate Adequate, Platelet Morphology Normal, Anisocytosis 1+, Target Cells 1+, Sodium Level 142, Potassium Level 4.6, Chloride Level 111H, Carbon Dioxide Level 16L, Anion Gap 15, Blood Urea Nitrogen 67H, Creatinine 6.2H, Estimat Glomerular Filtration Rate 9.4, Glucose Level 136H, Calcium Level 6.8L, Total Bilirubin 17.8H, Direct Bilirubin 14.5H, Aspartate Amino Transf (AST/SGOT) 96H, Alanine Aminotransferase (ALT/SGPT) 25, Alkaline Phosphatase 360H, Total Protein 4.7L, Albumin 0.9L, Globulin 3.8, Albumin/Globulin Ratio 0.2L Height (Feet): 5 Height (Inches): 5.00 Weight (Pounds): 189 General Appearance: no apparent distress EENT: other - icteric Cardiovascular: tachycardia Respiratory/Chest: decreased breath sounds Abdomen: distended Neurologic: other - periods of awakening Objective no change Leonard Bautista MD Jan 19, 2019 16:01
--- NOTE | 2019-01-19 17:53 | Neurology Progress Note ---
Interim History Interim History ROS Limited/Unobtainable: No Complaints: AMS Events: This visit was performed on January 19, [address] Dee. Interim History More lethargic with family at bedside today. Weaker than yesterday as per RN > Objective Physical Exam Last Vital Signs Date Time Temp Pulse Resp B/P (MAP) Pulse Ox O2 Delivery O2 Flow Rate FiO2 01/19/19 15:50 98.0 103 16 85/61 (69) 88 01/18/19 21:00 Nasal Cannula 2.0 Laboratory Tests Test 01/19/19 08:20 White Blood Count 31.1 K/UL (4.8-10.8) *H Red Blood Count 2.99 M/UL (4.70-6.10) L Hemoglobin 9.2 G/DL (14.2-18.0) L Hematocrit 29.6 % (42.0-52.0) L Mean Corpuscular Volume 99 FL (80-99) Mean Corpuscular Hemoglobin 30.8 PG (27.0-31.0) Mean Corpuscular Hemoglobin Concent 31.1 G/DL (32.0-36.0) L Red Cell Distribution Width 16.8 % (11.6-14.8) H Platelet Count 227 K/UL (150-450) Mean Platelet Volume 7.4 FL (6.5-10.1) Neutrophils (%) (Auto) % (45.0-75.0) Lymphocytes (%) (Auto) % (20.0-45.0) Monocytes (%) (Auto) % (1.0-10.0) Eosinophils (%) (Auto) % (0.0-3.0) Basophils (%) (Auto) % (0.0-2.0) Differential Total Cells Counted 100 Neutrophils % (Manual) 85 % (45-75) H Lymphocytes % (Manual) 1 % (20-45) L Monocytes % (Manual) 9 % (1-10) Eosinophils % (Manual) 0 % (0-3) Basophils % (Manual) 0 % (0-2) Band Neutrophils 5 % (0-8) Platelet Estimate Adequate Platelet Morphology Normal Anisocytosis 1+ Target Cells 1+ Sodium Level 142 MMOL/L (136-145) Potassium Level 4.6 MMOL/L (3.5-5.1) Chloride Level 111 MMOL/L (98-107) H Carbon Dioxide Level 16 MMOL/L (21-32) L Anion Gap 15 mmol/L (5-15) Blood Urea Nitrogen 67 mg/dL (7-18) H Creatinine 6.2 MG/DL (0.55-1.30) H Estimat Glomerular Filtration Rate 9.4 mL/min (>60) Glucose Level 136 MG/DL (74-106) H Calcium Level 6.8 MG/DL (8.5-10.1) L Total Bilirubin 17.8 MG/DL (0.2-1.0) H Direct Bilirubin 14.5 MG/DL (0.0-0.3) H Aspartate Amino Transf (AST/SGOT) 96 U/L (15-37) H Alanine Aminotransferase (ALT/SGPT) 25 U/L (12-78) Alkaline Phosphatase 360 U/L (46-116) H Total Protein 4.7 G/DL (6.4-8.2) L Albumin 0.9 G/DL (3.4-5.0) L Globulin 3.8 g/dL Albumin/Globulin Ratio 0.2 (1.0-2.7) L General: well developed, other Head: normocophalic, other Neck: no rigidity EENT: other - Visible right nasal polyp, skin tag, lesion - Neurologic Exam Mental Status: awake, alert, other Speech: other Language: other Cranial Nerve II: fundus normal, visual osorio, other Cranial Nerves III, IV, : PERRLA, EOMI, other Cranial Nerve V: normal facial sensations, temporales function normal, other Cranial Nerve VII: no facial asymmetry, other Cranial Nerve VIII: normal hearing, other Cranial Nerve IX: normal palate elevation, other Cranial Nerve X: no voice hoarseness, other Cranial Nerve XI: SCM symmetric, other Cranial Nerve XII: tongue midline, other Motor System: no involuntary movement, other Sensory: normal pinprick, normal light touch, normal position sense, normal graphesthesia, other Coordination: other - More appropriately verbal in conversation at times with depressed affect and difficulty following instructions during examination. Deep Tendon Reflexes: 1+ bicep (L), 1+ bicep (R), 1+ tricep (L), 1+ tricep (R) , 1+ brachioradialis (L), 1+ brachioradialis (R), 1+ knee (L), 1+ knee (R), 1+ ankle (L), 1+ ankle (R) Stance: other - Patient remains weak throughout all extremities with non focal exam. He is more appropriate in conversation today but remains non focal and encephalopathic Gait: other Objective Patient is alert and oriented to circumstances with intermittent episodes of agitation/ confusion. He remains non focal and weak throughout He becomes tangential and agitated at times but is increasingly lethargic- today , he is minimally verbal and lethargic. Impression/Recommendations Problems: (1) Acute upper GI bleed (2) Esophagitis (3) Alcoholic liver disease (4) Elevated LFTs (5) Acute alcoholic gastritis (6) Psychosis (7) Acute alcoholic intoxication (8) Acute encephalopathy (9) Hypocalcemia Status: not improved, unchanged, deteriorating Recommendations Oral feeding PRN all day given nutritional status and care goals Await goals of care discussion and decisions from family. Patient likely has poor prognosis due to ongoing liver failure. Neurological status has waxed/ waned and secondary to hepatic encephalopathy. We will continue to follow. Anika Pettit N.P. Jan 19, 2019 17:53
[2019-01-19] MEDS: Micafungin 100 MG in NS 110 ML IVPB SCH (18:11)
--- NOTE | 2019-01-19 19:20 | NUR ---
HAND-OFF: Report given to Jenny SOUTH.
--- NOTE | 2019-01-19 19:30 | NUR ---
NURSE NOTES: Received report & pt from BRANNON Becker. Pt lying in bed, awake, on O2 via NC @ 3LPM, family members at bedside. No s/s of acute distress & no s/s of pain at this time. Bed in lowest position, call light within reach. Will continue to monitor.
[2019-01-19 20:00] VITALS: BP 89/59
[2019-01-20] VITALS: BP 87/57
[2019-01-20] MEDS: Morphine Sulfate 4mg/ml Inj (IV USE ONLY) IVP PRN ×3 (04:51→13:29)
[2019-01-20 04:59] VITALS: BP 92/54
[2019-01-20] MEDS: Zosyn 2.25 gm in D5W 55ml IV SCH ×3 (05:40→21:47)
--- NOTE | 2019-01-20 07:05 | NUR ---
NURSE NOTES: Report received from Jenny SOUTH, rounds made. Patient sleeping in semi-fowlers position, with occasional arm/leg movement and moaning, will medicate for pain as needed. IV heplock to RFA, intact. Skin with jaundice appearance, will turn and provide skin care. Will provide oral mouth care/suction. Call light in reach, bed in lowest position, provided quiet environment, will continue to monitor. Addendum: 01/20/19 at 0744 by Rosita Pinon RN Patient on O2 3LNC, no SOB noted at rest.
--- NOTE | 2019-01-20 07:11 | NUR ---
HAND-OFF: Report given to BRANNON Becker. Pt in stable condition. Rounds done.
[2019-01-20 08:00] VITALS: BP 78/48
--- NOTE | 2019-01-20 08:36 | General Progress Note ---
Assessment/Plan Problem List: (1) Abdominal pain ICD Codes: R10.9 - Unspecified abdominal pain SNOMED: 52022248 (2) Anemia ICD Codes: D64.9 - Anemia, unspecified SNOMED: 513334053 (3) Alcoholic liver disease ICD Codes: K70.9 - Alcoholic liver disease, unspecified SNOMED: 65012971 (4) Acute alcoholic gastritis ICD Codes: K29.20 - Alcoholic gastritis without bleeding SNOMED: 2554852 Qualifiers: Qualified Codes: K29.20 - Alcoholic gastritis without bleeding Status: not improved, unchanged, deteriorating Assessment/Plan: detox gi f/u cbc bmp dc plan comfort snf if clear Subjective Constitutional: Reports: weakness Allergies: Coded Allergies: No Known Allergies (Verified , 10/22/06) All Systems: reviewed and negative except above Subjective o2nc sleepy calm Objective Last 24 Hour Vital Signs Date Time Temp Pulse Resp B/P (MAP) Pulse Ox O2 Delivery O2 Flow Rate FiO2 01/20/19 08:00 97.0 104 18 78/48 (58) 95 01/20/19 04:59 97.2 107 16 92/54 (67) 86 01/20/19 00:00 97.4 108 20 87/57 (67) 87 01/19/19 21:00 Nasal Cannula 3.0 01/19/19 20:00 97.2 111 16 89/59 (69) 88 01/19/19 15:50 98.0 103 16 85/61 (69) 88 01/19/19 12:02 97.9 72 15 77/45 (56) 90 01/19/19 09:00 Nasal Cannula 3.0 Intake and Output 01/19/19 01/20/19 19:00 07:00 Intake Total 525 ml Balance 525 ml IV Total 525 ml # Voids 3 2 Height (Feet): 5 Height (Inches): 5.00 Weight (Pounds): 189 General Appearance: lethargic EENT: normal ENT inspection Neck: normal alignment Cardiovascular: normal peripheral pulses, normal rate, regular rhythm Respiratory/Chest: chest wall non-tender, lungs clear, normal breath sounds Abdomen: normal bowel sounds, soft, distended Extremities: normal inspection Edema: no edema noted Arm (L), no edema noted Arm (R), no edema noted Leg (L), no edema noted Leg (R), no edema noted Pedal (L), no edema noted Pedal (R), no edema noted Generalized Neurologic: motor weakness Skin: normal pigmentation, warm/dry Corwin Martinez DO Jan 20, 2019 08:36
[2019-01-20] MEDS: Lactulose 20gm/30ml UDC ORAL SCH ×3 (08:43→18:00)
[2019-01-20] MEDS: Midodrine 10mg tab ORAL SCH ×3 (08:44→18:00)
--- NOTE | 2019-01-20 09:09 | General Progress Note ---
Assessment/Plan Problem List: (1) Elevated LFTs ICD Codes: R94.5 - Abnormal results of liver function studies SNOMED: 371553253, 077496372 (2) Esophagitis ICD Codes: K20.9 - Esophagitis, unspecified SNOMED: 32421029 (3) Acute alcoholic gastritis ICD Codes: K29.20 - Alcoholic gastritis without bleeding SNOMED: 4341428 Qualifiers: Qualified Codes: K29.20 - Alcoholic gastritis without bleeding (4) Alcoholic liver disease ICD Codes: K70.9 - Alcoholic liver disease, unspecified SNOMED: 55547025 Status: not improved, unchanged, deteriorating Assessment/Plan: Imaging noted, cirrhosis >> rising bili US with doppler r/o Budd-Chiari Syndrome>> negative OB stool negative Stable H&H discriminant function calculated, patient will benefit from glucocorticoid therapy >> held due to elevated WBC Paracentesis yielding 7.4L , rule out SBP >> negative lactulose + xifaxan bowel regimen ppi fu labs fu neurology recs poor prognosis hospice now Subjective ROS Limited/Unobtainable: No Allergies: Coded Allergies: No Known Allergies (Verified , 10/22/06) Objective Last 24 Hour Vital Signs Date Time Temp Pulse Resp B/P (MAP) Pulse Ox O2 Delivery O2 Flow Rate FiO2 01/20/19 08:00 97.0 104 18 78/48 (58) 95 01/20/19 04:59 97.2 107 16 92/54 (67) 86 01/20/19 00:00 97.4 108 20 87/57 (67) 87 01/19/19 21:00 Nasal Cannula 3.0 01/19/19 20:00 97.2 111 16 89/59 (69) 88 01/19/19 15:50 98.0 103 16 85/61 (69) 88 01/19/19 12:02 97.9 72 15 77/45 (56) 90 Intake and Output 01/19/19 01/20/19 19:00 07:00 Intake Total 525 ml Balance 525 ml IV Total 525 ml # Voids 3 2 Height (Feet): 5 Height (Inches): 5.00 Weight (Pounds): 189 General Appearance: lethargic EENT: scleral icterus Neck: normal alignment, supple Cardiovascular: normal rate Abdomen: normal bowel sounds, non tender, soft Extremities: non-tender Vosoghi,Jarod MD Jan 20, 2019 09:09
[2019-01-20] MEDS ORDERED: NS 275ml ONE (09:24)
[2019-01-20] MEDS ORDERED: D5NS 1000ml IV ONE (09:24)
[2019-01-20] MEDS ORDERED: Tubing IV Secondary IV ONE (09:24)
--- NOTE | 2019-01-20 10:54 | NUR ---
SS note This Sw received a message from family Malinda ([phone]) to contact her; message left with Malinda from this Sw (awaiting call back at this time). Addendum: 01/20/19 at 1132 by YENI DE LA PAZ Sister Malinda returned this Sw call to express her concerns regarding family dynamics (sister yelling, etc). Malinda does not want to visit when other family are present due to the conflict that can arise amongst them. Emotional support provided to Malinda, who plans to visit possibly later tonight or tomorrow. Malinda expressing she is the decision maker; this Sw confirmed with Malinda that she is listed as the primary decision maker; advised her to contact nursing for any additional updates that she may need.
--- NOTE | 2019-01-20 11:08 | Infectious Diseases Prog Note ---
Assessment/Plan Assessment/Plan 58 yo male with PMHx of EtOH abuse, Depression and anxiety, SI who presented to the ED on 12/29/18 with N/V and abdominal pain. Leukocytosis and single high temp- S/P Prednisone 01/09/19 Likely due to gastritis from EtOH need -MRCP : Very limited exam, as described. Normal caliber bile ducts without definite filling defects to suggest choledocholithiasis Cholelithiasis. Gallbladder wall thickening, also described on prior sonogram. Most likely on the basis of hepatocellular derangement but the possibility of acute cholecystitis should also be considered. Ascites. Abnormal hepatic morphology, also previously described, suggestive of cirrhotic change -Abd US: Hepatomegaly. Coarsened hepatic echogenicity and surface nodularitysuggests cirrhosis. Ascites, not demonstrated previously. Cholelithiasis and gallbladder sludge, not evident previously. Gallbladder wall thickening and pericholecystic fluid, probably due to the hepatocellular derangements, but the possibility of acute cholecystitis should also be considered. Correlate with clinical findings, consider nuclear medicine hepatobiliary scan if clinically indicated. Negative for dilated bile ducts. Incidental finding small left renal cyst -CT abd/p: Chronic liver disease/cirrhosis with fatty infiltration, enlargement of the liver and stigmata of portal hypertension including ascites and splenomegaly, recanalized umbilical vein. Basilar atelectasis. Probable gallstones. Tiny bilateral renal hypodensities too small to characterize.Fecal impaction Cirrhosis EtOH abuse Hep A/B/C - Neg Paracentesis Cx 01/11/19 - Neg Depression and anxiety SI HIV (-) PLAN: - If consistent with goals of care, continue Zosyn #14 and Micafungin #4 -01/16 SP ZOsyn #10 - 01/08/19 S/P Levofloxacin #6 and Flagyl #6 - 01/03/19 S/P Zosyn #5 -f/u cx -CXR, CBC, CMP am -aspiration precautions -goals of care discussion ongoing- agree with Hospice eval Subjective Allergies: Coded Allergies: No Known Allergies (Verified , 10/22/06) Subjective afebrile wbc icnreased to 30s; no cbc today Objective Vital Signs Last 24 Hour Vital Signs Date Time Temp Pulse Resp B/P (MAP) Pulse Ox O2 Delivery O2 Flow Rate FiO2 01/20/19 09:00 Nasal Cannula 3.0 01/20/19 08:00 97.0 104 18 78/48 (58) 95 01/20/19 04:59 97.2 107 16 92/54 (67) 86 01/20/19 00:00 97.4 108 20 87/57 (67) 87 01/19/19 21:00 Nasal Cannula 3.0 01/19/19 20:00 97.2 111 16 89/59 (69) 88 01/19/19 15:50 98.0 103 16 85/61 (69) 88 01/19/19 12:02 97.9 72 15 77/45 (56) 90 Height (Feet): 5 Height (Inches): 5.00 Weight (Pounds): 189 Objective Gen: NAD HEENT: NCAT, MMM, EOMI, PERRL, No Oral lesion, no scleral icterus but blood shot NECK: full range of motion, supple, no meningismus, No LAD, No JVD LUNGS: CTAB, No W/C, No Accessory muscle use CARDS: RRR, S1, S2, No M/R/G, ABD: Soft, Epigastric pain, ND, No R/G, + BS, No HSM, No Masses : Deferred Ext: C/C/E, Pulses 2+ B/L (DP, Rad): NEURO: A/O x 4, Strength and Sensation Grossly intact PSYCH: Depressed SKIN: Warm/dry, No rashes Microbiology Date/Time Source Procedure Growth Status 01/17/19 16:09 Blood Blood Culture - Preliminary NO GROWTH AFTER 48 HOURS Resulted 01/17/19 16:05 Blood Blood Culture - Preliminary NO GROWTH AFTER 48 HOURS Resulted Current Medications Medications (Trade) Dose Ordered Sig/Clyde Route PRN Reason Start Time Stop Time Status Last Admin Dose Admin Dextrose (Dextrose 50%) 50 ml Q30M PRN IV Hypoglycemia 01/05/19 18:30 01/28/19 16:29 Lactulose (Cephulac) 30 gm THREE TIMES A DAY ORAL 01/17/19 18:00 02/16/19 17:59 Micafungin Sodium 100 mg/Sodium Chloride 110 ml @ 110 mls/hr Q24H IVPB 01/17/19 17:00 01/24/19 16:59 01/19/19 18:11 Midodrine (Pro-Amatine) 10 mg THREE TIMES A DAY ORAL 01/17/19 18:00 02/16/19 17:59 Morphine Sulfate (Morphine Sulfate) 4 mg Q2H PRN IVP For Pain (4-10) 01/18/19 20:00 01/25/19 19:59 01/20/19 08:48 Ondansetron HCl (Zofran) 4 mg Q6H PRN IVP Nausea & Vomiting 01/05/19 18:25 02/04/19 18:24 Pantoprazole (Protonix) 40 mg EVERY 12 HOURS ORAL 01/17/19 21:00 02/16/19 20:59 Piperacillin Sod/ Tazobactam Sod 2.25 gm/Dextrose 55 ml @ 110 mls/hr Q8HR IV 01/18/19 22:00 01/22/19 23:59 01/20/19 05:40 Carmen Berumen M.D. Jan 20, 2019 11:08
[2019-01-20 12:00] VITALS: BP 75/47
--- NOTE | 2019-01-20 12:05 | Pulmonology Progress Note ---
Assessment/Plan Problems: (1) Sepsis (2) End stage liver disease (3) Acute upper GI bleed (4) Acute alcoholic intoxication (5) Coagulopathy (6) Psychosis (7) Acute encephalopathy (8) Alcoholic liver disease Assessment/Plan comatose off morphine drip difficult to manage because of conflicting requests by family members. i suggest comfort care suggest to stop doing blood work every day Subjective ROS Limited/Unobtainable: No Constitutional: Reports: no symptoms HEENT: Repors: no symptoms Allergies: Coded Allergies: No Known Allergies (Verified , 10/22/06) Objective Last 24 Hour Vital Signs Date Time Temp Pulse Resp B/P (MAP) Pulse Ox O2 Delivery O2 Flow Rate FiO2 01/20/19 09:00 Nasal Cannula 3.0 01/20/19 08:00 97.0 104 18 78/48 (58) 95 01/20/19 04:59 97.2 107 16 92/54 (67) 86 01/20/19 00:00 97.4 108 20 87/57 (67) 87 01/19/19 21:00 Nasal Cannula 3.0 01/19/19 20:00 97.2 111 16 89/59 (69) 88 01/19/19 15:50 98.0 103 16 85/61 (69) 88 Intake and Output 01/19/19 01/20/19 18:59 06:59 Intake Total 525 ml Balance 525 ml IV Total 525 ml # Voids 3 2 Objective General Appearance: cachectic HEENT: atraumatic Respiratory/Chest: chest wall non-tender, normal breath sounds Breasts: no masses Cardiovascular: normal rate Abdomen: soft, non tender, ascites Genitourinary: normal external genitalia Extremities: no clubbing Microbiology Date/Time Source Procedure Growth Status 01/17/19 16:09 Blood Blood Culture - Preliminary NO GROWTH AFTER 48 HOURS Resulted 01/17/19 16:05 Blood Blood Culture - Preliminary NO GROWTH AFTER 48 HOURS Resulted Current Medications Medications (Trade) Dose Ordered Sig/Clyde Route PRN Reason Start Time Stop Time Status Last Admin Dose Admin Dextrose (Dextrose 50%) 50 ml Q30M PRN IV Hypoglycemia 01/05/19 18:30 01/28/19 16:29 Lactulose (Cephulac) 30 gm THREE TIMES A DAY ORAL 01/17/19 18:00 02/16/19 17:59 Micafungin Sodium 100 mg/Sodium Chloride 110 ml @ 110 mls/hr Q24H IVPB 01/17/19 17:00 01/24/19 16:59 01/19/19 18:11 Midodrine (Pro-Amatine) 10 mg THREE TIMES A DAY ORAL 01/17/19 18:00 02/16/19 17:59 Morphine Sulfate (Morphine Sulfate) 4 mg Q2H PRN IVP For Pain (4-10) 01/18/19 20:00 01/25/19 19:59 01/20/19 08:48 Ondansetron HCl (Zofran) 4 mg Q6H PRN IVP Nausea & Vomiting 01/05/19 18:25 02/04/19 18:24 Pantoprazole (Protonix) 40 mg EVERY 12 HOURS ORAL 01/17/19 21:00 02/16/19 20:59 Piperacillin Sod/ Tazobactam Sod 2.25 gm/Dextrose 55 ml @ 110 mls/hr Q8HR IV 01/18/19 22:00 01/22/19 23:59 01/20/19 05:40 Marion Schneider MD Jan 20, 2019 12:05
--- NOTE | 2019-01-20 12:17 | NUR ---
CASE MANAGEMENT:REVIEW 01/20/19 SI: ACUTE ENCEPHALOPATHY. SEPSIS ACUTE ALCOHOLIC GASTRITIS. ESOPHAGITIS 97.0 104 18 78/48 86% ON 3L/NC IS: IV ZOSYN Q8HRS IV MICAFUNGIN Q24 IV F@75/HR IV MORPHINE Q2HRS PRN PROTONIX PO Q12 MIDODRINE PO TID LACTULOSE PO TID : MED/SURG STATUS 3 EAST DCP:
--- NOTE | 2019-01-20 13:48 | Cardiac Electrophysiology PN ---
Assessment/Plan Assessment/Plan 1. Hypotension and sinus tach. Off tele. On Abx. 2. Atypical Chest pain . EKG nonspecific ST-T wave abnormality. No ID. Echo EF 55% 3. Persistent hypokalemia. Corrected. 4. Leukocytosis.WBC 31K today. On iv Abx 5. ETOH Cirrhosis with Bilirubin 14. FU GI. S/P 7 liters of paracentesis 01/11/19 6. Comfort Care . No further labs DW RN Subjective Subjective No new events. In comfort care. Family refusing Morphine drip Objective Last 24 Hour Vital Signs Date Time Temp Pulse Resp B/P (MAP) Pulse Ox O2 Delivery O2 Flow Rate FiO2 01/20/19 12:00 97.2 98 17 75/47 (56) 90 01/20/19 09:00 Nasal Cannula 3.0 01/20/19 08:00 97.0 104 18 78/48 (58) 95 01/20/19 04:59 97.2 107 16 92/54 (67) 86 01/20/19 00:00 97.4 108 20 87/57 (67) 87 01/19/19 21:00 Nasal Cannula 3.0 01/19/19 20:00 97.2 111 16 89/59 (69) 88 01/19/19 15:50 98.0 103 16 85/61 (69) 88 Intake and Output 01/19/19 01/20/19 18:59 06:59 Intake Total 525 ml Balance 525 ml IV Total 525 ml # Voids 3 2 Microbiology Date/Time Source Procedure Growth Status 01/17/19 16:09 Blood Blood Culture - Preliminary NO GROWTH AFTER 48 HOURS Resulted 01/17/19 16:05 Blood Blood Culture - Preliminary NO GROWTH AFTER 48 HOURS Resulted Objective HEENT: Jaundiced sclera Cardiovascular: normal S1 and S2 and no murmur Respiratory/Chest: normal breath sounds, no respiratory distress Abdominal Exam: Distended with ascites Extremities: 2 plus edema Franck Saeed MD Jan 20, 2019 13:48
--- NOTE | 2019-01-20 14:29 | Nephrology Progress Note ---
Assessment/Plan Problem List: (1) SHABBIR (acute kidney injury) Assessment: likely hepatorenal (2) Alcoholic liver disease (3) Anemia (4) Electrolyte disorder (5) Jaundice Assessment Acute Alcoholic Gastritis / Encephalopathy - Intoxication Alcoholic Hepatitis Anemia Hypokalemia Psych disease Plan patient is DNR again hypotensive BP 70s in that case need fresh lab results for further management. Will discuss previously PO steroids on hold by GI has PICC Monitor lytes / Lfts per orders Subjective ROS Limited/Unobtainable: Yes Objective Objective Last 24 Hour Vital Signs Date Time Temp Pulse Resp B/P (MAP) Pulse Ox O2 Delivery O2 Flow Rate FiO2 01/20/19 12:00 97.2 98 17 75/47 (56) 90 01/20/19 09:00 Nasal Cannula 3.0 01/20/19 08:00 97.0 104 18 78/48 (58) 95 01/20/19 04:59 97.2 107 16 92/54 (67) 86 01/20/19 00:00 97.4 108 20 87/57 (67) 87 01/19/19 21:00 Nasal Cannula 3.0 01/19/19 20:00 97.2 111 16 89/59 (69) 88 01/19/19 15:50 98.0 103 16 85/61 (69) 88 Intake and Output 01/19/19 01/20/19 18:59 06:59 Intake Total 525 ml Balance 525 ml IV Total 525 ml # Voids 3 2 Height (Feet): 5 Height (Inches): 5.00 Weight (Pounds): 189 General Appearance: no apparent distress, other - obtunded Cardiovascular: tachycardia Respiratory/Chest: decreased breath sounds Abdomen: distended Objective no change Leonard Bautista MD Jan 20, 2019 14:29
--- NOTE | 2019-01-20 14:49 | NUR ---
*-* INSURANCE *-* UPDATED CLINICALS & REVIEWS HAVE BEEN FAXED TO [facility]: DOMINGUEZ Iglesias P- [phone] F- [phone].....REVIEW/CLINICAL
--- NOTE | 2019-01-20 15:09 | NUR ---
TWITCHELL OPERATOR NOTES SPOKE WITH MELANIE FROM [facility], PT ACCEPTED. PER MELANIE SHE WILL CONTACT FAMILY TO DISCUSS LOCATION FOR CONTINUED CARE. [facility] [phone]
--- NOTE | 2019-01-20 15:49 | NUR ---
DISCHARGE PLANNING CLINICALS FAXED TO [facility] FROM [facility] AND 2 [place] FAX MACH[employer]ES AWAITING RESPONSE Addendum: 01/20/19 at 1622 by SHANIQUA ARECHIGA LVN LVN PER ADRIAN AT [facility] THEY ARE DECLINING TO ACCEPT THIS PATIENT FOR THE SECOND TIME
[2019-01-20 16:00] VITALS: BP 86/50
--- NOTE | 2019-01-20 17:00 | NUR ---
NURSE NOTES: Spoke with family twice today at bedside with updates on patient's current status. Suggested family to stay throughout the day to discuss further care plan with MD, verbalized understanding.
[2019-01-20] MEDS: Micafungin 100 MG in NS 110 ML IVPB SCH (17:49)
--- NOTE | 2019-01-20 19:50 | NUR ---
HAND-OFF: Report given to Citlalli SOUTH. Endorsed that [facility] is at the bedside at this time discussing options with patient's family.
[2019-01-20 20:00] VITALS: BP 81/49
--- NOTE | 2019-01-20 20:00 | NUR ---
NURSE NOTES: PATIENT IS ON DNR/DNI, COMFORT MEASURE. LETHARGIC, NONVERBAL. ON O2 3L VIA N/C, NO SOB, NO S/SX OF PAIN. IV ON RFA INTACT, PATENT, SALINE LOCK. BED IN LOWEST POSITION, LOCKED, ALARMS ON. CALL LIGHT IN REACH. FAMILY AND HOSPICE STAFFS BY BEDSIDE.
--- NOTE | 2019-01-20 23:27 | Neurology Progress Note ---
Interim History Interim History ROS Limited/Unobtainable: Yes Complaints: AMS Events: This visit was performed on January 20, [address] Dee. Interim History Waxes and wanes with mentation. Remains very weak, weaker each day. Review of Systems All Systems: reviewed and negative except above Objective Physical Exam Last Vital Signs Date Time Temp Pulse Resp B/P (MAP) Pulse Ox O2 Delivery O2 Flow Rate FiO2 01/20/19 21:00 Nasal Cannula 3.0 01/20/19 20:00 98.0 104 16 81/49 (60) 94 General: well developed, other Head: normocophalic, other Neck: no rigidity EENT: other - Visible right nasal polyp, skin tag, lesion - Neurologic Exam Mental Status: awake, alert, other Speech: other Language: other Cranial Nerve II: fundus normal, visual osorio, other Cranial Nerves III, IV, : PERRLA, EOMI, other Cranial Nerve V: normal facial sensations, temporales function normal, other Cranial Nerve VII: no facial asymmetry, other Cranial Nerve VIII: normal hearing, other Cranial Nerve IX: normal palate elevation, other Cranial Nerve X: no voice hoarseness, other Cranial Nerve XI: SCM symmetric, other Cranial Nerve XII: tongue midline, other Motor System: no involuntary movement, other Sensory: normal pinprick, normal light touch, normal position sense, normal graphesthesia, other Coordination: other - More appropriately verbal in conversation at times with depressed affect and difficulty following instructions during examination. Deep Tendon Reflexes: 1+ bicep (L), 1+ bicep (R), 1+ tricep (L), 1+ tricep (R) , 1+ brachioradialis (L), 1+ brachioradialis (R), 1+ knee (L), 1+ knee (R), 1+ ankle (L), 1+ ankle (R) Stance: other - Patient remains weak throughout all extremities with non focal exam. He is more appropriate in conversation today but remains non focal and encephalopathic Gait: other Objective Patient is alert and oriented to circumstances with intermittent episodes of agitation/ confusion. He remains non focal and weak throughout He becomes tangential and agitated at times but is increasingly lethargic- today , he is minimally verbal and lethargic. Impression/Recommendations Problems: (1) Acute upper GI bleed (2) Esophagitis (3) Alcoholic liver disease (4) Elevated LFTs (5) Acute alcoholic gastritis (6) Psychosis (7) Acute alcoholic intoxication (8) Acute encephalopathy (9) Hypocalcemia Status: not improved, unchanged, deteriorating Recommendations Oral feeding PRN all day given nutritional status and care goals Await goals of care discussion and decisions from family. Patient likely has poor prognosis due to ongoing liver failure. Neurological status has waxed/ waned and secondary to hepatic encephalopathy. We will continue to follow. Anika Pettit N.P. Jan 20, 2019 23:27
[2019-01-21] VITALS (7 sets, daily range): BP systolic 70–110; BP diastolic 39–71
--- NOTE | 2019-01-21 02:45 | NUR ---
NURSE NOTES: PER ARIANE FROM [facility], PATIENT WILL BE TRANSFER TO [facility] BY WEDNESDAY ONCE THEY FIND AVAILABLE BED. WILL LET US KNOW IN ADVANCE. FAMILY AWARE.
[2019-01-21] MEDS: Zosyn 2.25 gm in D5W 55ml IV SCH (05:35)
--- NOTE | 2019-01-21 07:26 | Pulmonology Progress Note ---
Assessment/Plan Problems: (1) Sepsis (2) End stage liver disease (3) Acute upper GI bleed (4) Acute alcoholic intoxication (5) Coagulopathy (6) Psychosis (7) Acute encephalopathy (8) Alcoholic liver disease Assessment/Plan comatose off morphine drip difficult to manage because of conflicting requests by family members. i suggest comfort care suggest to stop doing blood work every day Subjective ROS Limited/Unobtainable: No Constitutional: Reports: no symptoms HEENT: Repors: no symptoms Respiratory: Reports: no symptoms Allergies: Coded Allergies: No Known Allergies (Verified , 10/22/06) Objective Last 24 Hour Vital Signs Date Time Temp Pulse Resp B/P (MAP) Pulse Ox O2 Delivery O2 Flow Rate FiO2 01/21/19 04:00 98.1 101 17 74/46 (55) 90 01/21/19 00:00 98.5 109 17 77/50 (59) 85 01/20/19 21:00 Nasal Cannula 3.0 01/20/19 20:00 98.0 104 16 81/49 (60) 94 01/20/19 16:00 96.8 109 16 86/50 (62) 80 01/20/19 12:00 97.2 98 17 75/47 (56) 90 01/20/19 09:00 Nasal Cannula 3.0 01/20/19 08:00 97.0 104 18 78/48 (58) 95 Intake and Output 01/20/19 01/21/19 19:00 07:00 Intake Total 0 ml Balance 0 ml Intake Oral 0 ml # Voids 3 1 Objective General Appearance: cachectic HEENT: atraumatic Respiratory/Chest: chest wall non-tender, normal breath sounds Breasts: no masses Cardiovascular: normal rate Abdomen: soft, non tender, ascites Genitourinary: normal external genitalia Extremities: no clubbing Current Medications Medications (Trade) Dose Ordered Sig/Clyde Route PRN Reason Start Time Stop Time Status Last Admin Dose Admin Dextrose (Dextrose 50%) 50 ml Q30M PRN IV Hypoglycemia 01/05/19 18:30 01/28/19 16:29 Lactulose (Cephulac) 30 gm THREE TIMES A DAY ORAL 01/17/19 18:00 02/16/19 17:59 Micafungin Sodium 100 mg/Sodium Chloride 110 ml @ 110 mls/hr Q24H IVPB 01/17/19 17:00 01/24/19 16:59 01/20/19 17:49 Midodrine (Pro-Amatine) 10 mg THREE TIMES A DAY ORAL 01/17/19 18:00 02/16/19 17:59 Morphine Sulfate (Morphine Sulfate) 4 mg Q2H PRN IVP For Pain (4-10) 01/18/19 20:00 01/25/19 19:59 01/20/19 13:29 Ondansetron HCl (Zofran) 4 mg Q6H PRN IVP Nausea & Vomiting 01/05/19 18:25 02/04/19 18:24 Pantoprazole (Protonix) 40 mg EVERY 12 HOURS ORAL 01/17/19 21:00 02/16/19 20:59 Piperacillin Sod/ Tazobactam Sod 2.25 gm/Dextrose 55 ml @ 110 mls/hr Q8HR IV 01/18/19 22:00 01/22/19 23:59 01/21/19 05:35 Marion Schneider MD Jan 21, 2019 07:26
--- NOTE | 2019-01-21 07:31 | NUR ---
HAND-OFF: Report given to Dana SOUTH.
--- NOTE | 2019-01-21 08:10 | NUR ---
NURSE NOTES: Patient opens eyes,nonverbal,respirations are unlabored. 02 on at 2L N/c.Patient resting,bed alarm is on,call light within reach.
[2019-01-21] MEDS: Lactulose 20gm/30ml UDC ORAL SCH ×3 (09:00→18:00)
[2019-01-21] MEDS: Midodrine 10mg tab ORAL SCH ×3 (09:00→18:00)
--- NOTE | 2019-01-21 09:41 | Cardiology Progress Note ---
Assessment/Plan Assessment/Plan Assessment/Plan Problems: (1) Acute alcoholic gastritis (2) Elevated LFTs (3) Alcoholic liver disease (4) Esophagitis (6) Psychosis (7) Acute alcoholic intoxication (8) Cirrhosis PLAN: 1. Hypotension and sinus tach. Off tele. On Abx. 2. Atypical Chest pain . EKG nonspecific ST-T wave abnormality. No VA. Echo EF 55% 3. Persistent hypokalemia. Corrected. 4. Leukocytosis.WBC 31K today. On iv Abx 5. ETOH Cirrhosis with Bilirubin 14. FU GI. S/P 7 liters of paracentesis 01/11/19 6. Comfort Care . No further labs Subjective Subjective Coverage for [place] No acute events, no chest pain, no shortness of breath, no fever Objective Last 24 Hour Vital Signs Date Time Temp Pulse Resp B/P (MAP) Pulse Ox O2 Delivery O2 Flow Rate FiO2 01/21/19 08:00 98.3 75 17 110/71 (84) 96 01/21/19 04:00 98.1 101 17 74/46 (55) 90 01/21/19 00:00 98.5 109 17 77/50 (59) 85 01/20/19 21:00 Nasal Cannula 3.0 01/20/19 20:00 98.0 104 16 81/49 (60) 94 01/20/19 16:00 96.8 109 16 86/50 (62) 80 01/20/19 12:00 97.2 98 17 75/47 (56) 90 Intake and Output 01/20/19 01/21/19 19:00 07:00 Intake Total 0 ml Balance 0 ml Intake Oral 0 ml # Voids 3 1 Devon Bolivar MD Jan 21, 2019 09:41
--- NOTE | 2019-01-21 09:59 | General Progress Note ---
Assessment/Plan Problem List: (1) Abdominal pain ICD Codes: R10.9 - Unspecified abdominal pain SNOMED: 99533662 (2) Anemia ICD Codes: D64.9 - Anemia, unspecified SNOMED: 898927929 (3) Alcoholic liver disease ICD Codes: K70.9 - Alcoholic liver disease, unspecified SNOMED: 75866151 (4) Acute alcoholic gastritis ICD Codes: K29.20 - Alcoholic gastritis without bleeding SNOMED: 0553504 Qualifiers: Qualified Codes: K29.20 - Alcoholic gastritis without bleeding Status: not improved, unchanged, deteriorating Assessment/Plan: detox gi f/u cbc bmp dc plan comfort snf if clear hospice eval Subjective Constitutional: Reports: weakness Allergies: Coded Allergies: No Known Allergies (Verified , 10/22/06) All Systems: reviewed and negative except above Subjective o2nc sleepy calm Objective Last 24 Hour Vital Signs Date Time Temp Pulse Resp B/P (MAP) Pulse Ox O2 Delivery O2 Flow Rate FiO2 01/21/19 08:00 98.3 75 17 110/71 (84) 96 01/21/19 04:00 98.1 101 17 74/46 (55) 90 01/21/19 00:00 98.5 109 17 77/50 (59) 85 01/20/19 21:00 Nasal Cannula 3.0 01/20/19 20:00 98.0 104 16 81/49 (60) 94 01/20/19 16:00 96.8 109 16 86/50 (62) 80 01/20/19 12:00 97.2 98 17 75/47 (56) 90 Intake and Output 01/20/19 01/21/19 19:00 07:00 Intake Total 0 ml Balance 0 ml Intake Oral 0 ml # Voids 3 1 Height (Feet): 5 Height (Inches): 5.00 Weight (Pounds): 189 General Appearance: lethargic EENT: normal ENT inspection Neck: normal alignment Cardiovascular: normal peripheral pulses, normal rate, regular rhythm Respiratory/Chest: chest wall non-tender, lungs clear, normal breath sounds Abdomen: normal bowel sounds, soft, distended Extremities: normal inspection Edema: no edema noted Arm (L), no edema noted Arm (R), no edema noted Leg (L), no edema noted Leg (R), no edema noted Pedal (L), no edema noted Pedal (R), no edema noted Generalized Neurologic: motor weakness Skin: normal pigmentation, warm/dry Corwin Martinez DO Jan 21, 2019 09:59
--- NOTE | 2019-01-21 10:41 | Nephrology Progress Note ---
Assessment/Plan Problem List: (1) SHABBIR (acute kidney injury) Assessment: likely hepatorenal (2) Alcoholic liver disease (3) Anemia (4) Electrolyte disorder (5) Jaundice Assessment Acute Alcoholic Gastritis / Encephalopathy - Intoxication Alcoholic Hepatitis Anemia Hypokalemia Psych disease Plan patient is DNR again hypotensive BP 70s in that case need fresh lab results for further management. Will discuss previously PO steroids on hold by GI has PICC Monitor lytes / Lfts per orders Subjective ROS Limited/Unobtainable: Yes Objective Objective Last 24 Hour Vital Signs Date Time Temp Pulse Resp B/P (MAP) Pulse Ox O2 Delivery O2 Flow Rate FiO2 01/21/19 08:00 98.3 75 17 110/71 (84) 96 01/21/19 04:00 98.1 101 17 74/46 (55) 90 01/21/19 00:00 98.5 109 17 77/50 (59) 85 01/20/19 21:00 Nasal Cannula 3.0 01/20/19 20:00 98.0 104 16 81/49 (60) 94 01/20/19 16:00 96.8 109 16 86/50 (62) 80 01/20/19 12:00 97.2 98 17 75/47 (56) 90 Intake and Output 01/20/19 01/21/19 19:00 07:00 Intake Total 0 ml Balance 0 ml Intake Oral 0 ml # Voids 3 1 Height (Feet): 5 Height (Inches): 5.00 Weight (Pounds): 189 General Appearance: no apparent distress Objective no change Leonard Bautista MD Jan 21, 2019 10:41
--- NOTE | 2019-01-21 12:14 | Infectious Diseases Prog Note ---
Assessment/Plan Assessment/Plan 58 yo male with PMHx of EtOH abuse, Depression and anxiety, SI who presented to the ED on 12/29/18 with N/V and abdominal pain. Leukocytosis and single high temp- S/P Prednisone 01/09/19 Likely due to gastritis from EtOH need -MRCP : Very limited exam, as described. Normal caliber bile ducts without definite filling defects to suggest choledocholithiasis Cholelithiasis. Gallbladder wall thickening, also described on prior sonogram. Most likely on the basis of hepatocellular derangement but the possibility of acute cholecystitis should also be considered. Ascites. Abnormal hepatic morphology, also previously described, suggestive of cirrhotic change -Abd US: Hepatomegaly. Coarsened hepatic echogenicity and surface nodularitysuggests cirrhosis. Ascites, not demonstrated previously. Cholelithiasis and gallbladder sludge, not evident previously. Gallbladder wall thickening and pericholecystic fluid, probably due to the hepatocellular derangements, but the possibility of acute cholecystitis should also be considered. Correlate with clinical findings, consider nuclear medicine hepatobiliary scan if clinically indicated. Negative for dilated bile ducts. Incidental finding small left renal cyst -CT abd/p: Chronic liver disease/cirrhosis with fatty infiltration, enlargement of the liver and stigmata of portal hypertension including ascites and splenomegaly, recanalized umbilical vein. Basilar atelectasis. Probable gallstones. Tiny bilateral renal hypodensities too small to characterize.Fecal impaction Cirrhosis EtOH abuse Hep A/B/C - Neg Paracentesis Cx 01/11/19 - Neg Depression and anxiety SI HIV (-) PLAN: - Will D/c Zosyn #15 and Micafungin #5 as dont believe is being of benefit, WBC unchanged and all cultures have been negative. Patient has end-stage liver disease and likely terminal at this point. Poor prognosis -01/16 SP ZOsyn #10 - 01/08/19 S/P Levofloxacin #6 and Flagyl #6 - 01/03/19 S/P Zosyn #5 -aspiration precautions -goals of care discussion ongoing- agree with Hospice eval Subjective Allergies: Coded Allergies: No Known Allergies (Verified , 10/22/06) Subjective afebrile wbc icnreased to 30s; no further labs done remains comatose Objective Vital Signs Last 24 Hour Vital Signs Date Time Temp Pulse Resp B/P (MAP) Pulse Ox O2 Delivery O2 Flow Rate FiO2 01/21/19 09:00 Nasal Cannula 3.0 01/21/19 08:00 98.3 75 17 110/71 (84) 96 01/21/19 04:00 98.1 101 17 74/46 (55) 90 01/21/19 00:00 98.5 109 17 77/50 (59) 85 01/20/19 21:00 Nasal Cannula 3.0 01/20/19 20:00 98.0 104 16 81/49 (60) 94 01/20/19 16:00 96.8 109 16 86/50 (62) 80 Height (Feet): 5 Height (Inches): 5.00 Weight (Pounds): 189 Objective Gen: NAD HEENT: NCAT, MMM, EOMI, PERRL, No Oral lesion, no scleral icterus but blood shot NECK: full range of motion, supple, no meningismus, No LAD, No JVD LUNGS: CTAB, No W/C, No Accessory muscle use CARDS: RRR, S1, S2, No M/R/G, ABD: Soft, Epigastric pain, ND, No R/G, + BS, No HSM, No Masses : Deferred Ext: C/C/E, Pulses 2+ B/L (DP, Rad): NEURO: A/O x 4, Strength and Sensation Grossly intact PSYCH: Depressed SKIN: Warm/dry, No rashes Current Medications Medications (Trade) Dose Ordered Sig/Clyde Route PRN Reason Start Time Stop Time Status Last Admin Dose Admin Dextrose (Dextrose 50%) 50 ml Q30M PRN IV Hypoglycemia 01/05/19 18:30 01/28/19 16:29 Lactulose (Cephulac) 30 gm THREE TIMES A DAY ORAL 01/17/19 18:00 02/16/19 17:59 Micafungin Sodium 100 mg/Sodium Chloride 110 ml @ 110 mls/hr Q24H IVPB 01/17/19 17:00 01/24/19 16:59 01/20/19 17:49 Midodrine (Pro-Amatine) 10 mg THREE TIMES A DAY ORAL 01/17/19 18:00 02/16/19 17:59 Morphine Sulfate (Morphine Sulfate) 4 mg Q2H PRN IVP For Pain (4-10) 01/18/19 20:00 01/25/19 19:59 01/20/19 13:29 Ondansetron HCl (Zofran) 4 mg Q6H PRN IVP Nausea & Vomiting 01/05/19 18:25 02/04/19 18:24 Pantoprazole (Protonix) 40 mg EVERY 12 HOURS ORAL 01/17/19 21:00 02/16/19 20:59 Piperacillin Sod/ Tazobactam Sod 2.25 gm/Dextrose 55 ml @ 110 mls/hr Q8HR IV 01/18/19 22:00 01/22/19 23:59 01/21/19 05:35 Carmen Bermuen M.D. Jan 21, 2019 12:14
--- NOTE | 2019-01-21 15:01 | NUR ---
CASE MANAGEMENT:REVIEW 01/21/19 SI: ACUTE ENCEPHALOPATHY. SEPSIS ACUTE ALCOHOLIC GASTRITIS. ESOPHAGITIS T 97.7 HR 105 RR 19 B/P 81/51 SATS 93% ON 3L/NC NO LABS TODAY IS: IV ZOSYN Q8HRS IV MICAFUNGIN Q24 IV F@75/HR IV MORPHINE Q2HRS PRN PROTONIX PO Q12 MIDODRINE PO TID LACTULOSE PO TID : MED/SURG STATUS 3 [facility]
--- NOTE | 2019-01-21 16:00 | NUR ---
NURSE NOTES: Waiting for call back from DR Martinez update called regarding patient blood pressure 70/45,heart rate 1oo,patient not eating today.
--- NOTE | 2019-01-21 16:35 | NUR ---
NURSE NOTES: DR Martinez notified regarding patient bp of 85/41. heart rate 90,and aware patient is not on IV fluids and patient unable to take po medication,DR Martinez state to notify DR Schneider and DR Valdez.Charge Nurse is aware.
[2019-01-21] MEDS ORDERED: NS 275ml ONE (16:43)
--- NOTE | 2019-01-21 18:22 | NUR ---
NURSE NOTES: No new orders received from DR Schneider.patient position for comfort,oral care given,. Patient BP at this time,73/44,heart rate 99.Waiting for call back from DR Valdez.Patient family member at bedside.Patient sister Malinda called this evening and aware of patient status.
--- NOTE | 2019-01-21 20:03 | NUR ---
HAND-OFF: Report given to Kelli SOUTH.
--- NOTE | 2019-01-21 20:04 | NUR ---
NURSE NOTES: PATIENT IS ON DNR/DNI, COMFORT MEASUREs. LETHARGIC, NONVERBAL. ON O2 3L VIA N/C, NO SOB, NO S/SX OF PAIN, occasional moans possibly indicate pain during position changes. IV ON RFA INTACT, PATENT, SALINE LOCK. BED IN LOWEST POSITION, LOCKED, ALARM ON. CALL LIGHT IN REACH. FAMILY at bedside, 2 sisters. will continue to monitor
--- NOTE | 2019-01-21 21:19 | Neurology Progress Note ---
Interim History Interim History ROS Limited/Unobtainable: Yes Complaints: AMS Events: This visit was performed on January 21, [address] Dee. Review of Systems All Systems: reviewed and negative except above Objective Physical Exam Last Vital Signs Date Time Temp Pulse Resp B/P (MAP) Pulse Ox O2 Delivery O2 Flow Rate FiO2 01/21/19 20:00 97.3 99 15 71/42 (52) 92 01/21/19 09:00 Nasal Cannula 3.0 General: well developed, other Head: normocophalic, other Neck: no rigidity EENT: other - Visible right nasal polyp, skin tag, lesion - Neurologic Exam Mental Status: awake, alert, other Speech: other Language: other Cranial Nerve II: fundus normal, visual osorio, other Cranial Nerves III, IV, : PERRLA, EOMI, other Cranial Nerve V: normal facial sensations, temporales function normal, other Cranial Nerve VII: no facial asymmetry, other Cranial Nerve VIII: normal hearing, other Cranial Nerve IX: normal palate elevation, other Cranial Nerve X: no voice hoarseness, other Cranial Nerve XI: SCM symmetric, other Cranial Nerve XII: tongue midline, other Motor System: no involuntary movement, other Sensory: normal pinprick, normal light touch, normal position sense, normal graphesthesia, other Coordination: other - More appropriately verbal in conversation at times with depressed affect and difficulty following instructions during examination. Deep Tendon Reflexes: 1+ bicep (L), 1+ bicep (R), 1+ tricep (L), 1+ tricep (R) , 1+ brachioradialis (L), 1+ brachioradialis (R), 1+ knee (L), 1+ knee (R), 1+ ankle (L), 1+ ankle (R) Stance: other - Patient remains weak throughout all extremities with non focal exam. He is more appropriate in conversation today but remains non focal and encephalopathic Gait: other Objective Patient is alert and oriented to circumstances with intermittent episodes of agitation/ confusion. He remains non focal and weak throughout He becomes tangential and agitated at times but is increasingly lethargic- today , he is minimally verbal and lethargic. Impression/Recommendations Problems: (1) Acute upper GI bleed (2) Esophagitis (3) Alcoholic liver disease (4) Elevated LFTs (5) Acute alcoholic gastritis (6) Psychosis (7) Acute alcoholic intoxication (8) Acute encephalopathy (9) Hypocalcemia Status: not improved, unchanged, deteriorating Recommendations Oral feeding PRN all day given nutritional status and care goals Await goals of care discussion and decisions from family. Patient likely has poor prognosis due to ongoing liver failure. Neurological status has waxed/ waned and secondary to hepatic encephalopathy. We will continue to follow. Anika Pettit N.P. Jan 21, 2019 21:19
[2019-01-21] MEDS: Morphine Sulfate 4mg/ml Inj (IV USE ONLY) IVP PRN (22:03)
[2019-01-22 03:42] VITALS: BP 77/44
--- NOTE | 2019-01-22 06:44 | Pulmonology Progress Note ---
Assessment/Plan Problems: (1) Sepsis (2) End stage liver disease (3) Acute upper GI bleed (4) Acute alcoholic intoxication (5) Coagulopathy (6) Psychosis (7) Acute encephalopathy (8) Alcoholic liver disease Assessment/Plan comatose off morphine drip difficult to manage because of conflicting requests by family members. i suggest comfort care suggest to stop doing blood work every day moribund, family in denial Subjective Interval Events: moribund Allergies: Coded Allergies: No Known Allergies (Verified , 10/22/06) Objective Last 24 Hour Vital Signs Date Time Temp Pulse Resp B/P (MAP) Pulse Ox O2 Delivery O2 Flow Rate FiO2 01/22/19 03:42 97.7 88 18 77/44 (55) 97 01/21/19 23:46 97.9 93 18 73/39 (50) 93 01/21/19 22:33 97.3 01/21/19 21:00 Nasal Cannula 3.0 01/21/19 20:00 97.3 99 15 71/42 (52) 92 01/21/19 16:00 97.5 100 18 70/45 (53) 99 01/21/19 12:00 97.7 105 19 81/51 (61) 93 105 01/21/19 09:00 Nasal Cannula 3.0 01/21/19 08:00 98.3 75 17 110/71 (84) 96 Intake and Output 01/21/19 01/22/19 18:59 06:59 # Voids 1 2 Objective General Appearance: cachectic, icteric HEENT: atraumatic Respiratory/Chest: chest wall non-tender, coarse breath sounds Breasts: no masses Cardiovascular: normal rate Abdomen: soft, non tender, ascites ext + edema Current Medications Medications (Trade) Dose Ordered Sig/Clyde Route PRN Reason Start Time Stop Time Status Last Admin Dose Admin Dextrose (Dextrose 50%) 50 ml Q30M PRN IV Hypoglycemia 01/05/19 18:30 01/28/19 16:29 Lactulose (Cephulac) 30 gm THREE TIMES A DAY ORAL 01/17/19 18:00 02/16/19 17:59 Midodrine (Pro-Amatine) 10 mg THREE TIMES A DAY ORAL 01/17/19 18:00 02/16/19 17:59 Morphine Sulfate (Morphine Sulfate) 4 mg Q2H PRN IVP For Pain (4-10) 01/18/19 20:00 01/25/19 19:59 01/21/19 22:03 Ondansetron HCl (Zofran) 4 mg Q6H PRN IVP Nausea & Vomiting 01/05/19 18:25 02/04/19 18:24 Pantoprazole (Protonix) 40 mg EVERY 12 HOURS ORAL 01/17/19 21:00 02/16/19 20:59 Marion Schneider MD Jan 22, 2019 06:44
--- NOTE | 2019-01-22 06:44 | NUR ---
NURSE NOTES: Sacral stage 2. initiated wound care protocol. MD Schneider notified and aware. no new orders given
--- NOTE | 2019-01-22 06:47 | NUR ---
NURSE NOTES: BP very low and MDs Wyatt and Juan are aware. no new orders given, trending BP has bee kiarra the 70's over 40's
--- NOTE | 2019-01-22 07:09 | NUR ---
HAND-OFF: Report given to BRANNON Cortez.
--- NOTE | 2019-01-22 07:59 | General Progress Note ---
Assessment/Plan Problem List: (1) Abdominal pain ICD Codes: R10.9 - Unspecified abdominal pain SNOMED: 74513450 (2) Anemia ICD Codes: D64.9 - Anemia, unspecified SNOMED: 389003525 (3) Alcoholic liver disease ICD Codes: K70.9 - Alcoholic liver disease, unspecified SNOMED: 48583353 (4) Acute alcoholic gastritis ICD Codes: K29.20 - Alcoholic gastritis without bleeding SNOMED: 1985525 Qualifiers: Qualified Codes: K29.20 - Alcoholic gastritis without bleeding Status: not improved, unchanged, deteriorating Assessment/Plan: detox gi f/u dc plan comfort snf if clear hospice eval Subjective Constitutional: Reports: weakness Allergies: Coded Allergies: No Known Allergies (Verified , 10/22/06) All Systems: reviewed and negative except above Subjective o2mask sleepy calm Objective Last 24 Hour Vital Signs Date Time Temp Pulse Resp B/P (MAP) Pulse Ox O2 Delivery O2 Flow Rate FiO2 01/22/19 03:42 97.7 88 18 77/44 (55) 97 01/21/19 23:46 97.9 93 18 73/39 (50) 93 01/21/19 22:33 97.3 01/21/19 21:00 Nasal Cannula 3.0 01/21/19 20:00 97.3 99 15 71/42 (52) 92 01/21/19 16:00 97.5 100 18 70/45 (53) 99 01/21/19 12:00 97.7 105 19 81/51 (61) 93 105 01/21/19 09:00 Nasal Cannula 3.0 01/21/19 08:00 98.3 75 17 110/71 (84) 96 Intake and Output 01/21/19 01/22/19 19:00 07:00 # Voids 1 2 Height (Feet): 5 Height (Inches): 5.00 Weight (Pounds): 189 General Appearance: lethargic EENT: normal ENT inspection Neck: normal alignment Cardiovascular: normal peripheral pulses, normal rate, regular rhythm Respiratory/Chest: chest wall non-tender, lungs clear, normal breath sounds Abdomen: normal bowel sounds, soft, distended Extremities: normal inspection Edema: no edema noted Arm (L), no edema noted Arm (R), no edema noted Leg (L), no edema noted Leg (R), no edema noted Pedal (L), no edema noted Pedal (R), no edema noted Generalized Neurologic: motor weakness Skin: normal pigmentation, warm/dry Corwin Martinez DO Jan 22, 2019 07:59
[2019-01-22 08:00] VITALS: BP 75/47
--- NOTE | 2019-01-22 08:00 | NUR ---
NURSE NOTES: Patient opens eyes when name called,patient receiving respiratory treatment,,patient suction.Turned and position.Oral care will be given.Bed alarm on.
[2019-01-22] MEDS: Midodrine 10mg tab ORAL SCH ×3 (09:00→18:00)
[2019-01-22] MEDS: Lactulose 20gm/30ml UDC ORAL SCH ×3 (09:00→18:00)
--- NOTE | 2019-01-22 09:13 | Cardiology Progress Note ---
Assessment/Plan Status: stable Assessment/Plan Assessment/Plan Problems: (1) Acute alcoholic gastritis (2) Elevated LFTs (3) Alcoholic liver disease (4) Esophagitis (6) Psychosis (7) Acute alcoholic intoxication (8) Cirrhosis PLAN: 1. Hypotension and sinus tach. Off tele. On Abx. 2. Atypical Chest pain . EKG nonspecific ST-T wave abnormality. No MA. Echo EF 55% 3. Persistent hypokalemia. Corrected. 4. Leukocytosis.WBC 31K today. On iv Abx 5. ETOH Cirrhosis with Bilirubin 14. FU GI. S/P 7 liters of paracentesis 01/11/19 6. Comfort Care . No further labs Subjective Cardiovascular: Reports: no symptoms Respiratory: Reports: no symptoms Gastrointestinal/Abdominal: Reports: no symptoms Genitourinary: Reports: no symptoms Subjective Coverage for [employer] No acute events, no chest pain, no shortness of breath, no fever Comatose, BP low, comfort care Objective Last 24 Hour Vital Signs Date Time Temp Pulse Resp B/P (MAP) Pulse Ox O2 Delivery O2 Flow Rate FiO2 01/22/19 08:00 97.0 94 16 75/47 (56) 92 01/22/19 03:42 97.7 88 18 77/44 (55) 97 01/21/19 23:46 97.9 93 18 73/39 (50) 93 01/21/19 22:33 97.3 01/21/19 21:00 Nasal Cannula 3.0 01/21/19 20:00 97.3 99 15 71/42 (52) 92 01/21/19 16:00 97.5 100 18 70/45 (53) 99 01/21/19 12:00 97.7 105 19 81/51 (61) 93 105 General Appearance: no apparent distress EENT: PERRL/EOMI, normal ENT inspection Neck: non-tender, normal alignment, supple, normal inspection Rhythm: NSR Cardiovascular: normal peripheral pulses, normal rate Respiratory/Chest: chest wall non-tender, lungs clear Abdomen: normal bowel sounds, non tender, no organomegaly Extremities: normal range of motion, non-tender Neurologic: gear roller II-XII grossly normal, no motor/sensory deficits Intake and Output 01/21/19 01/22/19 19:00 07:00 # Voids 1 2 Devon Bolivar MD Jan 22, 2019 09:13
[2019-01-22 09:57] LABS: HEMATOCRIT 29.9 % (42.0-52.0); HEMOGLOBIN 9.5 G/DL (14.2-18.0); MEAN CORPUSCULAR VOLUME 100 FL (80-99); PLATELET COUNT 182 K/UL (150-450); RED BLOOD COUNT 2.98 M/UL (4.70-6.10); RED CELL DISTRIBUTION WIDTH 16.7 % (11.6-14.8)
[2019-01-22 10:00] LABS: WHITE BLOOD COUNT 28.3 K/UL (4.8-10.8)
[2019-01-22 10:06] LABS: ANION GAP 20 mmol/L (5-15); BLOOD UREA NITROGEN 103 mg/dL (7-18); CALCIUM 6.7 MG/DL (8.5-10.1); CARBON DIOXIDE 13 MMOL/L (21-32); CHLORIDE 116 MMOL/L (98-107); CREATININE 9.3 MG/DL (0.55-1.30); POTASSIUM 5.5 MMOL/L (3.5-5.1); SODIUM 149 MMOL/L (136-145)
[2019-01-22 12:00] VITALS: BP 72/44
--- NOTE | 2019-01-22 13:01 | NUR ---
RD ASSESSMENT & RECOMMENDATIONS SEE CARE ACTIVITY FOR COMPLETE ASSESSMENT DAILY ESTIMATED NEEDS: Needs based on liver dysfunction/ 67.7kg adj 25-30 kcals/kg 6916-5151 total kcals 1-1.5 g protein/kg 68-102 g total protein Fluid per MD mL/kg - total fluid mLs NUTRITION DIAGNOSIS: 1) Altered nutrition related lab values r/t end stage liver disease as evidenced by elev T bili (12.5-> 17.8), pt is jaundiced, elev LFT's, renal labs trending up now (BUN 37-> 13, creat 2.1-> 9.3), pt is now DNR on comfort measure only. CURRENT DIET:Renal puree PO DIET RECOMMENDATIONS: Comfort measures only- liberalized/ texture as tolerated ADDITIONAL RECOMMENDATIONS: - Per MD comfort care - Diet as tolerated - Ensure as tolerated - Snacks as tolerated . . .
--- NOTE | 2019-01-22 13:54 | NUR ---
NURSE NOTES: DR Martinez ,DR Schneider,DR Bautista aware of patient labs, no orders were given,DR Bautista state he will go over labs .
[2019-01-22] MEDS ORDERED: Sodium Polystyrene Sulfonate 15gm Powder ORAL PRN (14:45)
--- NOTE | 2019-01-22 14:49 | NUR ---
NURSE NOTES: Order received from DR Schneider to give Kayexslate 30gm po q6hr prn.Explain to Dr Schneider have not been able to give patient medication by mouth. state when he is awake to give to patient.
--- NOTE | 2019-01-22 15:25 | Nephrology Progress Note ---
Assessment/Plan Problem List: (1) SHABBIR (acute kidney injury) Assessment: likely hepatorenal (2) Alcoholic liver disease (3) Anemia (4) Electrolyte disorder (5) Jaundice Assessment Acute Alcoholic Gastritis / Encephalopathy - Intoxication Alcoholic Hepatitis Anemia Hypokalemia Psych disease Plan patient is DNR hypotensive BP 70s not a dialysis candidate at this state previously PO steroids on hold by GI has PICC Monitor lytes / Lfts per orders Subjective ROS Limited/Unobtainable: Yes Objective Objective Last 24 Hour Vital Signs Date Time Temp Pulse Resp B/P (MAP) Pulse Ox O2 Delivery O2 Flow Rate FiO2 01/22/19 12:00 96.8 95 18 72/44 (53) 92 01/22/19 09:00 Nasal Cannula 3.0 01/22/19 08:00 97.0 94 16 75/47 (56) 92 01/22/19 03:42 97.7 88 18 77/44 (55) 97 01/21/19 23:46 97.9 93 18 73/39 (50) 93 01/21/19 22:33 97.3 01/21/19 21:00 Nasal Cannula 3.0 01/21/19 20:00 97.3 99 15 71/42 (52) 92 01/21/19 16:00 97.5 100 18 70/45 (53) 99 Intake and Output 01/21/19 01/22/19 19:00 07:00 # Voids 1 2 Laboratory Tests 01/22/19 09:10: White Blood Count 28.3*H, Red Blood Count 2.98L, Hemoglobin 9.5L, Hematocrit 29.9L, Mean Corpuscular Volume 100H, Mean Corpuscular Hemoglobin 32.0H, Mean Corpuscular Hemoglobin Concent 31.8L, Red Cell Distribution Width 16.7H, Platelet Count 182, Mean Platelet Volume 6.9, Neutrophils (%) (Auto) , Lymphocytes (%) (Auto) , Monocytes (%) (Auto) , Eosinophils (%) (Auto) , Basophils (%) (Auto) , Differential Total Cells Counted 100, Neutrophils % ( Manual) 90H, Lymphocytes % (Manual) 4L, Monocytes % (Manual) 5, Eosinophils % ( Manual) 1, Basophils % (Manual) 0, Band Neutrophils 0, Platelet Estimate Adequate, Platelet Morphology Normal, Hypochromasia 1+, Anisocytosis 1+, Macrocytosis 1+, Sodium Level 149H, Potassium Level 5.5H, Chloride Level 116H, Carbon Dioxide Level 13L, Anion Gap 20H, Blood Urea Nitrogen 103H, Creatinine 9.3H, Estimat Glomerular Filtration Rate 5.9, Glucose Level 76, Calcium Level 6.7L Height (Feet): 5 Height (Inches): 5.00 Weight (Pounds): 189 General Appearance: other - comatose EENT: other - icteric Cardiovascular: tachycardia Respiratory/Chest: decreased breath sounds Abdomen: distended Objective no change Leonard Bautista MD Jan 22, 2019 15:25
[2019-01-22 16:00] VITALS: BP 71/42
--- NOTE | 2019-01-22 18:00 | NUR ---
NURSE NOTES: Patient turned and position,open eyes,nonverbal,patient is lethargic,unable to give po medication at this time.Oral care given.
--- NOTE | 2019-01-22 18:30 | NUR ---
NURSE NOTES: Malinda ,patient sister and the conservator over the patient wants to speak with DR Schneider regarding patient care,will notify DR Schneider.
--- NOTE | 2019-01-22 19:24 | NUR ---
HAND-OFF: Report given to Kelli SOUTH.
--- NOTE | 2019-01-22 19:25 | NUR ---
NURSE NOTES: PATIENT IS ON DNR/DNI, COMFORT MEASUREs. LETHARGIC, NONVERBAL. ON O2 3L VIA N/C, NO SOB, NO S/SX OF PAIN, occasional moans possibly indicate pain during position changes. IV ON RFA INTACT, PATENT, SALINE LOCK. BED IN LOWEST POSITION, LOCKED, ALARM ON. CALL LIGHT IN REACH. FAMILY at bedside, sister and sister;s . will continue to monitor
[2019-01-22 20:00] VITALS: BP 68/40
--- NOTE | 2019-01-22 20:42 | NUR ---
NURSE NOTES: Patient turned and repositioned, opens eyes intermittently,nonverbal,patient is lethargic,unable to give po medication at this time due to risk of aspiration- also has secretions, suctioned.Oral care given.
[2019-01-23] VITALS: BP 69/38
[2019-01-23 04:00] VITALS: BP 66/36
--- NOTE | 2019-01-23 07:34 | NUR ---
HAND-OFF: Report given to BRANNON Whitlock.
--- NOTE | 2019-01-23 07:37 | NUR ---
NURSE NOTES: Pt awake yet non responsive. Did not turn head when name was called. All anticipated needs require to be met 2 to baseline.
[2019-01-23 08:00] VITALS: BP 80/49
--- NOTE | 2019-01-23 08:36 | General Progress Note ---
Assessment/Plan Problem List: (1) Abdominal pain ICD Codes: R10.9 - Unspecified abdominal pain SNOMED: 74002427 (2) Anemia ICD Codes: D64.9 - Anemia, unspecified SNOMED: 253632996 (3) Alcoholic liver disease ICD Codes: K70.9 - Alcoholic liver disease, unspecified SNOMED: 33552897 (4) Acute alcoholic gastritis ICD Codes: K29.20 - Alcoholic gastritis without bleeding SNOMED: 1032530 Qualifiers: Qualified Codes: K29.20 - Alcoholic gastritis without bleeding Status: unchanged Assessment/Plan: detox gi f/u dc plan comfort snf if clear hospice eval Subjective Constitutional: Reports: weakness Allergies: Coded Allergies: No Known Allergies (Verified , 10/22/06) All Systems: reviewed and negative except above Subjective o2nc sleepy calm Objective Last 24 Hour Vital Signs Date Time Temp Pulse Resp B/P (MAP) Pulse Ox O2 Delivery O2 Flow Rate FiO2 01/23/19 04:00 98.8 87 18 66/36 (46) 99 01/23/19 00:00 97.3 86 16 69/38 (48) 95 01/22/19 21:00 Nasal Cannula 3.0 01/22/19 20:00 97.9 68 17 68/40 (49) 90 01/22/19 16:00 97.0 90 17 71/42 (52) 93 01/22/19 12:00 96.8 95 18 72/44 (53) 92 01/22/19 09:00 Nasal Cannula 3.0 Intake and Output 01/22/19 01/23/19 19:00 07:00 Intake Total 0 ml Balance 0 ml Intake Oral 0 ml # Voids 1 Laboratory Tests 01/22/19 09:10: White Blood Count 28.3*H, Red Blood Count 2.98L, Hemoglobin 9.5L, Hematocrit 29.9L, Mean Corpuscular Volume 100H, Mean Corpuscular Hemoglobin 32.0H, Mean Corpuscular Hemoglobin Concent 31.8L, Red Cell Distribution Width 16.7H, Platelet Count 182, Mean Platelet Volume 6.9, Neutrophils (%) (Auto) , Lymphocytes (%) (Auto) , Monocytes (%) (Auto) , Eosinophils (%) (Auto) , Basophils (%) (Auto) , Differential Total Cells Counted 100, Neutrophils % ( Manual) 90H, Lymphocytes % (Manual) 4L, Monocytes % (Manual) 5, Eosinophils % ( Manual) 1, Basophils % (Manual) 0, Band Neutrophils 0, Platelet Estimate Adequate, Platelet Morphology Normal, Hypochromasia 1+, Anisocytosis 1+, Macrocytosis 1+, Sodium Level 149H, Potassium Level 5.5H, Chloride Level 116H, Carbon Dioxide Level 13L, Anion Gap 20H, Blood Urea Nitrogen 103H, Creatinine 9.3H, Estimat Glomerular Filtration Rate 5.9, Glucose Level 76, Calcium Level 6.7L Height (Feet): 5 Height (Inches): 5.00 Weight (Pounds): 189 General Appearance: lethargic EENT: normal ENT inspection Neck: normal alignment Cardiovascular: normal peripheral pulses, normal rate, regular rhythm Respiratory/Chest: chest wall non-tender, lungs clear, normal breath sounds Abdomen: normal bowel sounds, soft, distended Extremities: normal inspection Edema: no edema noted Arm (L), no edema noted Arm (R), no edema noted Leg (L), no edema noted Leg (R), no edema noted Pedal (L), no edema noted Pedal (R), no edema noted Generalized Neurologic: motor weakness Skin: normal pigmentation, warm/dry Corwin Martinez DO Jan 23, 2019 08:36
[2019-01-23] MEDS: Lactulose 20gm/30ml UDC ORAL SCH ×3 (08:52→18:00)
[2019-01-23] MEDS: Midodrine 10mg tab ORAL SCH ×3 (08:52→18:00)
--- NOTE | 2019-01-23 08:52 | NUR ---
NURSE NOTES: Pt is non responsive routine medications held aware of baseline
--- NOTE | 2019-01-23 11:26 | GI Progress Note ---
Assessment/Plan Problems: (1) Acute alcoholic gastritis ICD Codes: K29.20 - Alcoholic gastritis without bleeding SNOMED: 4245186 Qualifiers: Qualified Codes: K29.20 - Alcoholic gastritis without bleeding (2) Elevated LFTs ICD Codes: R94.5 - Abnormal results of liver function studies SNOMED: 392718750, 613911020 (3) Alcoholic liver disease ICD Codes: K70.9 - Alcoholic liver disease, unspecified SNOMED: 08598565 (4) Esophagitis ICD Codes: K20.9 - Esophagitis, unspecified SNOMED: 51063784 (5) Acute encephalopathy ICD Codes: G93.40 - Encephalopathy, unspecified SNOMED: 65671507, 573872536 (6) Psychosis ICD Codes: F29 - Unspecified psychosis not due to a substance or known physiological condition SNOMED: 07375113 (7) Acute alcoholic intoxication ICD Codes: F10.929 - Alcohol use, unspecified with intoxication, unspecified SNOMED: 32195091 Status: not improved, unchanged, deteriorating Status Narrative Discussed with Dr. Rich. Assessment/Plan Imaging noted, cirrhosis >> rising bili US with doppler r/o Budd-Chiari Syndrome>> negative OB stool negative Stable H&H discriminant function calculated, patient will benefit from glucocorticoid therapy >> held due to elevated WBC Paracentesis yielding 7.4L , rule out SBP >> negative lactulose + xifaxan bowel regimen ppi fu labs fu neurology recs poor prognosis hospice now The patient was seen and examined at bedside and all new and available data was reviewed in the patients chart. I agree with the above findings, impression and plan. (Patient seen earlier today. Signature stamp does not reflect patient encounter time.). - Jarod Rich MD Subjective Subjective limited Objective Last 24 Hour Vital Signs Date Time Temp Pulse Resp B/P (MAP) Pulse Ox O2 Delivery O2 Flow Rate FiO2 01/23/19 09:00 Nasal Cannula 3.0 01/23/19 08:00 98.2 93 16 80/49 (59) 94 01/23/19 04:00 98.8 87 18 66/36 (46) 99 01/23/19 00:00 97.3 86 16 69/38 (48) 95 01/22/19 21:00 Nasal Cannula 3.0 01/22/19 20:00 97.9 68 17 68/40 (49) 90 01/22/19 16:00 97.0 90 17 71/42 (52) 93 01/22/19 12:00 96.8 95 18 72/44 (53) 92 Intake and Output 01/22/19 01/23/19 19:00 07:00 Intake Total 0 ml Balance 0 ml Intake Oral 0 ml # Voids 1 Height (Feet): 5 Height (Inches): 5.00 Weight (Pounds): 189 Luisana Craft NP Jan 23, 2019 11:26
[2019-01-23 12:00] VITALS: BP 64/47
--- NOTE | 2019-01-23 12:47 | Nephrology Progress Note ---
Assessment/Plan Problem List: (1) SHABBIR (acute kidney injury) Assessment: likely hepatorenal (2) Alcoholic liver disease (3) Anemia (4) Electrolyte disorder (5) Jaundice Assessment Acute Alcoholic Gastritis / Encephalopathy - Intoxication Alcoholic Hepatitis Anemia Hypokalemia Psych disease Plan patient is DNR hypotensive not a dialysis candidate at this state previously has PICC Monitor lytes / Lfts per orders Subjective ROS Limited/Unobtainable: Yes Objective Objective Last 24 Hour Vital Signs Date Time Temp Pulse Resp B/P (MAP) Pulse Ox O2 Delivery O2 Flow Rate FiO2 01/23/19 09:00 Nasal Cannula 3.0 01/23/19 08:00 98.2 93 16 80/49 (59) 94 01/23/19 04:00 98.8 87 18 66/36 (46) 99 01/23/19 00:00 97.3 86 16 69/38 (48) 95 01/22/19 21:00 Nasal Cannula 3.0 01/22/19 20:00 97.9 68 17 68/40 (49) 90 01/22/19 16:00 97.0 90 17 71/42 (52) 93 Intake and Output 01/22/19 01/23/19 19:00 07:00 Intake Total 0 ml Balance 0 ml Intake Oral 0 ml # Voids 1 Height (Feet): 5 Height (Inches): 5.00 Weight (Pounds): 189 General Appearance: no apparent distress, other - poorly responsive EENT: other - deeply jaundiced Cardiovascular: normal rate Respiratory/Chest: decreased breath sounds Abdomen: distended Objective no change Leonard Bautista MD Jan 23, 2019 12:47
--- NOTE | 2019-01-23 13:41 | NUR ---
CASE MANAGEMENT:REVIEW 01/22/19 SI: ACUTE ENCEPHALOPATHY. SEPSIS ACUTE ALCOHOLIC GASTRITIS. ESOPHAGITIS T 97.9 HR 68 RR 17 B/P 68/40 SATS 90% ON 3L/NC WBC 28.3 NA 149 K 5.5 CL 116 CO2 13 BUN 103 CR 9.3 CA 6.7 IS: IV ZOSYN Q8HRS IV MICAFUNGIN Q24 IV F@75/HR IV MORPHINE Q2HRS PRN PROTONIX PO Q12 MIDODRINE PO TID LACTULOSE PO TID : MED/SURG STATUS [address] [facility] 01/23/2019 SI: ACUTE ENCEPHALOPATHY. SEPSIS ACUTE ALCOHOLIC GASTRITIS. ESOPHAGITIS T 98.2 HR 93 RR 16 B/P 80/49 SATS 94% ON 3L/NC NO LABS TODAY IS: IV ZOSYN Q8HRS IV MICAFUNGIN Q24 IV F@75/HR IV MORPHINE Q2HRS PRN PROTONIX PO Q12 MIDODRINE PO TID LACTULOSE PO TID : MED/SURG STATUS [address] [facility]
--- NOTE | 2019-01-23 14:30 | Infectious Diseases Prog Note ---
Assessment/Plan Assessment/Plan 58 yo male with PMHx of EtOH abuse, Depression and anxiety, SI who presented to the ED on 12/29/18 with N/V and abdominal pain. Leukocytosis and single high temp- S/P Prednisone 01/09/19 Likely due to gastritis from EtOH need -MRCP : Very limited exam, as described. Normal caliber bile ducts without definite filling defects to suggest choledocholithiasis Cholelithiasis. Gallbladder wall thickening, also described on prior sonogram. Most likely on the basis of hepatocellular derangement but the possibility of acute cholecystitis should also be considered. Ascites. Abnormal hepatic morphology, also previously described, suggestive of cirrhotic change -Abd US: Hepatomegaly. Coarsened hepatic echogenicity and surface nodularitysuggests cirrhosis. Ascites, not demonstrated previously. Cholelithiasis and gallbladder sludge, not evident previously. Gallbladder wall thickening and pericholecystic fluid, probably due to the hepatocellular derangements, but the possibility of acute cholecystitis should also be considered. Correlate with clinical findings, consider nuclear medicine hepatobiliary scan if clinically indicated. Negative for dilated bile ducts. Incidental finding small left renal cyst -CT abd/p: Chronic liver disease/cirrhosis with fatty infiltration, enlargement of the liver and stigmata of portal hypertension including ascites and splenomegaly, recanalized umbilical vein. Basilar atelectasis. Probable gallstones. Tiny bilateral renal hypodensities too small to characterize.Fecal impaction Cirrhosis EtOH abuse Hep A/B/C - Neg Paracentesis Cx 01/11/19 - Neg Depression and anxiety SI HIV (-) PLAN: - Cotinue to monitor off antibiotics as dont believe is being of benefit, WBC unchanged and all cultures have been negative. Patient has end-stage liver disease and likely terminal at this point. Poor prognosis -01/21 SP ZOsyn #15, MIcafungin #5 - 01/08/19 S/P Levofloxacin #6 and Flagyl #6 - 01/03/19 S/P Zosyn #5 -aspiration precautions -goals of care discussion ongoing- agree with Hospice eval Subjective Allergies: Coded Allergies: No Known Allergies (Verified , 10/22/06) Subjective afebrile wbc icnreased to 30s; no further labs done remains comatose Bcx neg now off abx Objective Vital Signs Last 24 Hour Vital Signs Date Time Temp Pulse Resp B/P (MAP) Pulse Ox O2 Delivery O2 Flow Rate FiO2 01/23/19 09:00 Nasal Cannula 3.0 01/23/19 08:00 98.2 93 16 80/49 (59) 94 01/23/19 04:00 98.8 87 18 66/36 (46) 99 01/23/19 00:00 97.3 86 16 69/38 (48) 95 01/22/19 21:00 Nasal Cannula 3.0 01/22/19 20:00 97.9 68 17 68/40 (49) 90 01/22/19 16:00 97.0 90 17 71/42 (52) 93 Height (Feet): 5 Height (Inches): 5.00 Weight (Pounds): 189 Objective Gen: NAD HEENT: NCAT, MMM, EOMI, PERRL, No Oral lesion, no scleral icterus but blood shot NECK: full range of motion, supple, no meningismus, No LAD, No JVD LUNGS: CTAB, No W/C, No Accessory muscle use CARDS: RRR, S1, S2, No M/R/G, ABD: Soft, Epigastric pain, ND, No R/G, + BS, No HSM, No Masses : Deferred Ext: C/C/E, Pulses 2+ B/L (DP, Rad): NEURO: A/O x 4, Strength and Sensation Grossly intact PSYCH: Depressed SKIN: Warm/dry, No rashes Current Medications Medications (Trade) Dose Ordered Sig/Clyde Route PRN Reason Start Time Stop Time Status Last Admin Dose Admin Dextrose (Dextrose 50%) 50 ml Q30M PRN IV Hypoglycemia 01/05/19 18:30 01/28/19 16:29 Lactulose (Cephulac) 30 gm THREE TIMES A DAY ORAL 01/17/19 18:00 02/16/19 17:59 Midodrine (Pro-Amatine) 10 mg THREE TIMES A DAY ORAL 01/17/19 18:00 02/16/19 17:59 Morphine Sulfate (Morphine Sulfate) 4 mg Q2H PRN IVP For Pain (4-10) 01/18/19 20:00 01/25/19 19:59 01/21/19 22:03 Ondansetron HCl (Zofran) 4 mg Q6H PRN IVP Nausea & Vomiting 01/05/19 18:25 02/04/19 18:24 Pantoprazole (Protonix) 40 mg EVERY 12 HOURS ORAL 01/17/19 21:00 02/16/19 20:59 Sodium Polystyrene Sulfonate (Kayexalate) 30 gm EVERY 6 HOURS PRN ORAL K > 5 01/22/19 14:45 02/21/19 14:44 Carmen Berumen M.D. Jan 23, 2019 14:30
--- NOTE | 2019-01-23 15:30 | NUR ---
NURSE NOTES: Pt has been repositioned for comfort measures. Seen by wound nurse earlier in shift gave recommendations for wound care. Dr Martinez phoned for recommendations, gave approval to carry out recommendations
--- NOTE | 2019-01-23 15:35 | NUR ---
NURSE NOTES:WOUND CARE NOTES:Pt noted to be jaundiced with generalized edemae. Partial thickness pressure noted to Sacrum. Base of wound is moist and viable with surrounding non-blanchable erythema without induration. Periwound noted to have dark skin tone without induration or fluctuance.(L)2.5cm x (W)1cm. Partial thickness pressure injury noted to R ischium.Base of wound moist and viable. Edges adherent to base of wound (L)1.5cm x (W)2cm.Darker skin tone without erythema or induration periwound. Non-Blanchable erythema without induration or fluctuance noted to Lateral L tibia (L)6.5cm x (W)1.5cm. Non-blanchable erythema with delineated margins L heel. Base of wound is fluctuant. Dry peeling skin periwound.(L)5.5cm x (W)6cm. Non-Blanchable erythema with delineated margins noted to R heel. Base of wound is fluctuant. Periwound is pale with dry peeling skin (L)2.5cm x (W)4cm. Tx.Plan: Apply Moisture Barrier paste to R ischium and sacrum. Cover each site with Optifoam drsg. Change every 3 days and prn. Apply Cavilon Skin Barrier to both heels and lateral L tibia. Cover each site with Optifoam drsg. Change every 7 days and prn. APM/SHELDON mattress overlay. Reposition at least every 2hours or as tolerated. Off-load heels with pillow.
[2019-01-23 16:00] VITALS: BP 125/80
--- NOTE | 2019-01-23 16:02 | Cardiac Electrophysiology PN ---
Assessment/Plan Assessment/Plan 1. Hypotension and sinus tach. Off tele. On Abx. 2. Atypical Chest pain . EKG nonspecific ST-T wave abnormality. No AK. Echo EF 55% 3. Persistent hypokalemia. Corrected. 4. Leukocytosis. WBC 28K . Off Abx 5. ETOH Cirrhosis with Bilirubin 14. FU GI. S/P paracentesis 01/11/19 6. Comfort Care DW RN Subjective Subjective No new events. In comfort care.Placement pending today Objective Last 24 Hour Vital Signs Date Time Temp Pulse Resp B/P (MAP) Pulse Ox O2 Delivery O2 Flow Rate FiO2 01/23/19 09:00 Nasal Cannula 3.0 01/23/19 08:00 98.2 93 16 80/49 (59) 94 01/23/19 04:00 98.8 87 18 66/36 (46) 99 01/23/19 00:00 97.3 86 16 69/38 (48) 95 01/22/19 21:00 Nasal Cannula 3.0 01/22/19 20:00 97.9 68 17 68/40 (49) 90 Intake and Output 01/22/19 01/23/19 19:00 07:00 Intake Total 0 ml Balance 0 ml Intake Oral 0 ml # Voids 1 Objective HEENT: Jaundiced sclera Cardiovascular: normal S1 and S2 and no murmur Respiratory/Chest: normal breath sounds, no respiratory distress Abdominal Exam: Distended with ascites Extremities: 2 plus edema Franck Saeed MD Jan 23, 2019 16:02
--- NOTE | 2019-01-23 17:30 | NUR ---
*-* INSURANCE *-* REVIEWS HAVE BEEN FAXED TO [facility] NCM: DOMINGUEZ Iglesias P- [phone] F- [phone].....REVIEW/CLINICAL
--- NOTE | 2019-01-23 17:31 | NUR ---
DISCHARGE PLANNING: NOTE PER DOMINGUEZ P- [phone] [facility] IS WORKING ON PLACEMENT FOR THIS PATIENT. PRIMARY CM TO F/U
[2019-01-23 20:00] VITALS: BP 61/38
--- NOTE | 2019-01-23 20:24 | NUR ---
NURSE NOTES: Pt repostioned through out shift remains non verbal . Oral care provided with difficulty pt unable to follow commands to open mouth. Kept clean and dry. Special mattress, delivered at end of 7am- 7pm shift. Per Dr Schneider and his assessment pt is due to nursing staff to keep pt comfortable. Informed that resume writer was not able to give oral medication 2 to baseline . Current plan will be followed
--- NOTE | 2019-01-23 20:30 | NUR ---
NURSE NOTES: Received pt and report from BRANNON Whitlock. Observed pt resting in bed with both eyes closed and family members at bedside. Pt is A/Ox0. IV site intact, asymptomatic, and patent. Bed is in the lowest position and locked. Call light within reach. No signs/symptoms of acute distress noted at this time. Will continue plan of care.
--- NOTE | 2019-01-23 21:17 | NUR ---
NURSE NOTES: Non-admin Protonix 40mg PO. Pt was too lethargic.
--- NOTE | 2019-01-23 23:43 | Neurology Progress Note ---
Interim History Interim History ROS Limited/Unobtainable: Yes Complaints: AMS Events: This visit was performed on January 24, [address] Dee. Review of Systems All Systems: reviewed and negative except above Objective Physical Exam Last Vital Signs Date Time Temp Pulse Resp B/P (MAP) Pulse Ox O2 Delivery O2 Flow Rate FiO2 01/23/19 21:00 Nasal Cannula 3.0 01/23/19 20:00 97.7 93 20 61/38 (46) 92 General: well developed, other Head: normocophalic, other Neck: no rigidity EENT: other - Visible right nasal polyp, skin tag, lesion - Neurologic Exam Mental Status: awake, alert, other Speech: other Language: other Cranial Nerve II: fundus normal, visual osorio, other Cranial Nerves III, IV, : PERRLA, EOMI, other Cranial Nerve V: normal facial sensations, temporales function normal, other Cranial Nerve VII: no facial asymmetry, other Cranial Nerve VIII: normal hearing, other Cranial Nerve IX: normal palate elevation, other Cranial Nerve X: no voice hoarseness, other Cranial Nerve XI: SCM symmetric, other Cranial Nerve XII: tongue midline, other Motor System: no involuntary movement, other Sensory: normal pinprick, normal light touch, normal position sense, normal graphesthesia, other Coordination: other - More appropriately verbal in conversation at times with depressed affect and difficulty following instructions during examination. Deep Tendon Reflexes: 1+ bicep (L), 1+ bicep (R), 1+ tricep (L), 1+ tricep (R) , 1+ brachioradialis (L), 1+ brachioradialis (R), 1+ knee (L), 1+ knee (R), 1+ ankle (L), 1+ ankle (R) Stance: other - Patient remains weak throughout all extremities with non focal exam. He is more appropriate in conversation today but remains non focal and encephalopathic Gait: other Objective Patient is alert and oriented to circumstances with intermittent episodes of agitation/ confusion. He remains non focal and weak throughout He becomes tangential and agitated at times but is increasingly lethargic- today , he is minimally verbal and lethargic. Impression/Recommendations Problems: (1) Acute upper GI bleed (2) Esophagitis (3) Alcoholic liver disease (4) Elevated LFTs (5) Acute alcoholic gastritis (6) Psychosis (7) Acute alcoholic intoxication (8) Acute encephalopathy (9) Hypocalcemia Status: not improved, unchanged, deteriorating Recommendations Oral feeding PRN all day given nutritional status and care goals Await goals of care discussion and decisions from family. Patient likely has poor prognosis due to ongoing liver failure. Neurological status has waxed/ waned and secondary to hepatic encephalopathy. We will continue to follow. Anika Pettit N.P. Jan 23, 2019 23:43
[2019-01-24] VITALS: BP 68/36
[2019-01-24 04:00] VITALS: BP 65/40
--- NOTE | 2019-01-24 07:30 | NUR ---
NURSE NOTES: WALKING ROUNDS DONE WITH OUTGOING RN. PATIENT IN BED SLEEP. WILL OPEN EYES WHEN CALLED BY FIRST NAME. HEAD TO TOE ASSESSMENT COMPLETE. TURN SCHEDULE IN PROGRESS WITH PILLOW SUPPORT TO BONY PROMINENCES. BED IN LOWEST AND LOCKED POSITION. CALL LIGHT WITHIN REACH.
--- NOTE | 2019-01-24 07:39 | NUR ---
HAND-OFF: Report given to BRANNON Elaine.
[2019-01-24 08:00] VITALS: BP 72/38
[2019-01-24] MEDS: Midodrine 10mg tab ORAL SCH (09:00)
[2019-01-24] MEDS: Lactulose 20gm/30ml UDC ORAL SCH ×3 (09:00→17:42)
--- NOTE | 2019-01-24 10:52 | GI Progress Note ---
Assessment/Plan Problems: (1) Acute alcoholic gastritis ICD Codes: K29.20 - Alcoholic gastritis without bleeding SNOMED: 1840588 Qualifiers: Qualified Codes: K29.20 - Alcoholic gastritis without bleeding (2) Elevated LFTs ICD Codes: R94.5 - Abnormal results of liver function studies SNOMED: 249788661, 892693208 (3) Alcoholic liver disease ICD Codes: K70.9 - Alcoholic liver disease, unspecified SNOMED: 64476318 (4) Esophagitis ICD Codes: K20.9 - Esophagitis, unspecified SNOMED: 75502369 (5) Acute encephalopathy ICD Codes: G93.40 - Encephalopathy, unspecified SNOMED: 20702996, 212940211 (6) Psychosis ICD Codes: F29 - Unspecified psychosis not due to a substance or known physiological condition SNOMED: 74693960 (7) Acute alcoholic intoxication ICD Codes: F10.929 - Alcohol use, unspecified with intoxication, unspecified SNOMED: 01443016 Status: stable Status Narrative Discussed with Dr. Rich. Assessment/Plan Imaging noted, cirrhosis >> rising bili US with doppler r/o Budd-Chiari Syndrome>> negative OB stool negative Stable H&H discriminant function calculated, patient will benefit from glucocorticoid therapy >> held due to elevated WBC Paracentesis yielding 7.4L , rule out SBP >> negative lactulose + xifaxan bowel regimen ppi fu labs fu neurology recs poor prognosis hospice now The patient was seen and examined at bedside and all new and available data was reviewed in the patients chart. I agree with the above findings, impression and plan. (Patient seen earlier today. Signature stamp does not reflect patient encounter time.). - Jarod Rich MD Subjective Subjective limited Objective Last 24 Hour Vital Signs Date Time Temp Pulse Resp B/P (MAP) Pulse Ox O2 Delivery O2 Flow Rate FiO2 01/24/19 09:00 Nasal Cannula 3.0 01/24/19 08:00 97.4 90 20 72/38 (49) 89 01/24/19 04:00 97.8 87 16 65/40 (48) 95 01/24/19 00:00 97.7 87 18 68/36 (47) 90 01/23/19 21:00 Nasal Cannula 3.0 01/23/19 20:00 97.7 93 20 61/38 (46) 92 7/1/19 16:00 97.8 78 18 125/80 (95) 01/23/19 12:00 97.2 92 16 64/47 (53) 16 Intake and Output 01/23/19 01/24/19 19:00 07:00 # Voids 1 # Bowel Movements 1 Height (Feet): 5 Height (Inches): 5.00 Weight (Pounds): 189 General Appearance: confused Cardiovascular: normal rate Respiratory/Chest: no respiratory distress Abdominal Exam: distended Luisana Craft VACATION GUIDE Jan 24, 2019 10:52
--- NOTE | 2019-01-24 11:47 | Infectious Diseases Prog Note ---
Assessment/Plan Assessment/Plan 58 yo male with PMHx of EtOH abuse, Depression and anxiety, SI who presented to the ED on 12/29/18 with N/V and abdominal pain. Leukocytosis and single high temp- S/P Prednisone 01/09/19 Likely due to gastritis from EtOH need -MRCP : Very limited exam, as described. Normal caliber bile ducts without definite filling defects to suggest choledocholithiasis Cholelithiasis. Gallbladder wall thickening, also described on prior sonogram. Most likely on the basis of hepatocellular derangement but the possibility of acute cholecystitis should also be considered. Ascites. Abnormal hepatic morphology, also previously described, suggestive of cirrhotic change -Abd US: Hepatomegaly. Coarsened hepatic echogenicity and surface nodularitysuggests cirrhosis. Ascites, not demonstrated previously. Cholelithiasis and gallbladder sludge, not evident previously. Gallbladder wall thickening and pericholecystic fluid, probably due to the hepatocellular derangements, but the possibility of acute cholecystitis should also be considered. Correlate with clinical findings, consider nuclear medicine hepatobiliary scan if clinically indicated. Negative for dilated bile ducts. Incidental finding small left renal cyst -CT abd/p: Chronic liver disease/cirrhosis with fatty infiltration, enlargement of the liver and stigmata of portal hypertension including ascites and splenomegaly, recanalized umbilical vein. Basilar atelectasis. Probable gallstones. Tiny bilateral renal hypodensities too small to characterize.Fecal impaction Cirrhosis EtOH abuse Hep A/B/C - Neg Paracentesis Cx 01/11/19 - Neg Depression and anxiety SI HIV (-) PLAN: - Cotinue to monitor off antibiotics as dont believe is being of benefit, WBC unchanged and all cultures have been negative. Patient has end-stage liver disease and likely terminal at this point. Poor prognosis -01/21 SP ZOsyn #15, MIcafungin #5 - 01/08/19 S/P Levofloxacin #6 and Flagyl #6 - 01/03/19 S/P Zosyn #5 -aspiration precautions -goals of care discussion ongoing- agree with Hospice eval Subjective Allergies: Coded Allergies: No Known Allergies (Verified , 10/22/06) Subjective afebrile wbc icnreased to 30s; no further labs done remains comatose Bcx neg now off abx Objective Vital Signs Last 24 Hour Vital Signs Date Time Temp Pulse Resp B/P (MAP) Pulse Ox O2 Delivery O2 Flow Rate FiO2 01/24/19 09:00 Nasal Cannula 3.0 01/24/19 08:00 97.4 90 20 72/38 (49) 89 01/24/19 04:00 97.8 87 16 65/40 (48) 95 01/24/19 00:00 97.7 87 18 68/36 (47) 90 01/23/19 21:00 Nasal Cannula 3.0 01/23/19 20:00 97.7 93 20 61/38 (46) 92 01/23/19 16:00 97.8 78 18 125/80 (95) 01/23/19 12:00 97.2 92 16 64/47 (53) 16 Height (Feet): 5 Height (Inches): 5.00 Weight (Pounds): 189 Objective Gen: NAD HEENT: NCAT, MMM, EOMI, PERRL, No Oral lesion, no scleral icterus but blood shot NECK: full range of motion, supple, no meningismus, No LAD, No JVD LUNGS: CTAB, No W/C, No Accessory muscle use CARDS: RRR, S1, S2, No M/R/G, ABD: Soft, Epigastric pain, ND, No R/G, + BS, No HSM, No Masses : Deferred Ext: C/C/E, Pulses 2+ B/L (DP, Rad): NEURO: A/O x 4, Strength and Sensation Grossly intact PSYCH: Depressed SKIN: Warm/dry, No rashes Current Medications Medications (Trade) Dose Ordered Sig/Clyde Route PRN Reason Start Time Stop Time Status Last Admin Dose Admin Dextrose (Dextrose 50%) 50 ml Q30M PRN IV Hypoglycemia 01/05/19 18:30 01/28/19 16:29 Lactulose (Cephulac) 30 gm THREE TIMES A DAY ORAL 01/17/19 18:00 02/16/19 17:59 Midodrine (Pro-Amatine) 10 mg THREE TIMES A DAY ORAL 01/17/19 18:00 02/16/19 17:59 Morphine Sulfate (Morphine Sulfate) 4 mg Q2H PRN IVP For Pain (4-10) 01/18/19 20:00 01/25/19 19:59 01/21/19 22:03 Ondansetron HCl (Zofran) 4 mg Q6H PRN IVP Nausea & Vomiting 01/05/19 18:25 02/04/19 18:24 Pantoprazole (Protonix) 40 mg EVERY 12 HOURS ORAL 01/17/19 21:00 02/16/19 20:59 Sodium Polystyrene Sulfonate (Kayexalate) 30 gm EVERY 6 HOURS PRN ORAL K > 5 01/22/19 14:45 02/21/19 14:44 Carmen Berumen M.D. Jan 24, 2019 11:47
[2019-01-24 12:00] VITALS: BP 60/32
--- NOTE | 2019-01-24 12:01 | General Progress Note ---
Assessment/Plan Problem List: (1) Abdominal pain ICD Codes: R10.9 - Unspecified abdominal pain SNOMED: 19159129 (2) Anemia ICD Codes: D64.9 - Anemia, unspecified SNOMED: 579235668 (3) Alcoholic liver disease ICD Codes: K70.9 - Alcoholic liver disease, unspecified SNOMED: 18661959 (4) Acute alcoholic gastritis ICD Codes: K29.20 - Alcoholic gastritis without bleeding SNOMED: 2994663 Qualifiers: Qualified Codes: K29.20 - Alcoholic gastritis without bleeding Status: unchanged Assessment/Plan: detox gi f/u cbc bmp am dc plan comfort snf if clear hospice eval Subjective Constitutional: Reports: weakness Allergies: Coded Allergies: No Known Allergies (Verified , 10/22/06) All Systems: reviewed and negative except above Subjective o2nc sleepy calm Objective Last 24 Hour Vital Signs Date Time Temp Pulse Resp B/P (MAP) Pulse Ox O2 Delivery O2 Flow Rate FiO2 01/24/19 09:00 Nasal Cannula 3.0 01/24/19 08:00 97.4 90 20 72/38 (49) 89 01/24/19 04:00 97.8 87 16 65/40 (48) 95 01/24/19 00:00 97.7 87 18 68/36 (47) 90 01/23/19 21:00 Nasal Cannula 3.0 01/23/19 20:00 97.7 93 20 61/38 (46) 92 01/23/19 16:00 97.8 78 18 125/80 (95) Intake and Output 01/23/19 01/24/19 19:00 07:00 # Voids 1 # Bowel Movements 1 Height (Feet): 5 Height (Inches): 5.00 Weight (Pounds): 189 General Appearance: lethargic EENT: normal ENT inspection Neck: normal alignment Cardiovascular: normal peripheral pulses, normal rate, regular rhythm Respiratory/Chest: chest wall non-tender, lungs clear, normal breath sounds Abdomen: normal bowel sounds, soft, distended Extremities: normal inspection Edema: no edema noted Arm (L), no edema noted Arm (R), no edema noted Leg (L), no edema noted Leg (R), no edema noted Pedal (L), no edema noted Pedal (R), no edema noted Generalized Neurologic: motor weakness Skin: normal pigmentation, warm/dry Martinez,Corwin Chi-Loreto DO Jan 24, 2019 12:01
--- NOTE | 2019-01-24 13:05 | Pulmonology Progress Note ---
Assessment/Plan Problems: (1) Sepsis (2) End stage liver disease (3) Acute upper GI bleed (4) Acute alcoholic intoxication (5) Coagulopathy (6) Psychosis (7) Acute encephalopathy (8) Alcoholic liver disease Assessment/Plan comatose off morphine drip difficult to manage because of conflicting requests by family members. i suggest comfort care suggest to stop doing blood work every day moribund, family in denial Subjective ROS Limited/Unobtainable: No Allergies: Coded Allergies: No Known Allergies (Verified , 10/22/06) Objective Last 24 Hour Vital Signs Date Time Temp Pulse Resp B/P (MAP) Pulse Ox O2 Delivery O2 Flow Rate FiO2 01/24/19 12:00 97.6 88 20 60/32 (41) 88 01/24/19 09:00 Nasal Cannula 3.0 01/24/19 08:00 97.4 90 20 72/38 (49) 89 01/24/19 04:00 97.8 87 16 65/40 (48) 95 01/24/19 00:00 97.7 87 18 68/36 (47) 90 01/23/19 21:00 Nasal Cannula 3.0 01/23/19 20:00 97.7 93 20 61/38 (46) 92 01/23/19 16:00 97.8 78 18 125/80 (95) Intake and Output 01/23/19 01/24/19 19:00 07:00 # Voids 1 # Bowel Movements 1 Objective General Appearance: cachectic, icteric HEENT: atraumatic Respiratory/Chest: chest wall non-tender, coarse breath sounds Breasts: no masses Cardiovascular: normal rate Abdomen: soft, non tender, ascites ext + edema Current Medications Medications (Trade) Dose Ordered Sig/Clyde Route PRN Reason Start Time Stop Time Status Last Admin Dose Admin Dextrose (Dextrose 50%) 50 ml Q30M PRN IV Hypoglycemia 01/05/19 18:30 01/28/19 16:29 Lactulose (Cephulac) 30 gm THREE TIMES A DAY ORAL 01/17/19 18:00 02/16/19 17:59 Midodrine (Pro-Amatine) 10 mg THREE TIMES A DAY ORAL 01/17/19 18:00 02/16/19 17:59 Morphine Sulfate (Morphine Sulfate) 4 mg Q2H PRN IVP For Pain (4-10) 01/18/19 20:00 01/25/19 19:59 01/21/19 22:03 Ondansetron HCl (Zofran) 4 mg Q6H PRN IVP Nausea & Vomiting 01/05/19 18:25 02/04/19 18:24 Pantoprazole (Protonix) 40 mg EVERY 12 HOURS ORAL 01/17/19 21:00 02/16/19 20:59 Sodium Polystyrene Sulfonate (Kayexalate) 30 gm EVERY 6 HOURS PRN ORAL K > 5 01/22/19 14:45 02/21/19 14:44 Marion Schneider MD Jan 24, 2019 13:05
--- NOTE | 2019-01-24 14:40 | NUR ---
NURSE NOTES: UPON DOING HOURLY ROUNDS, PATIENT WOKE UP AND STATED "I'M DYING" AND BEGAN TO WHIMPER AND WENT BACK TO SLEEP.
--- NOTE | 2019-01-24 15:00 | Nephrology Progress Note ---
Assessment/Plan Problem List: (1) SHABBIR (acute kidney injury) Assessment: likely hepatorenal (2) Alcoholic liver disease (3) Anemia (4) Electrolyte disorder (5) Jaundice Assessment Acute Alcoholic Gastritis / Encephalopathy - Intoxication Alcoholic Hepatitis Anemia Hypokalemia Psych disease Plan patient is DNR hypotensive not a dialysis candidate at this state previously has PICC Monitor lytes / Lfts per orders Subjective ROS Limited/Unobtainable: No Constitutional: Reports: malaise Objective Objective Last 24 Hour Vital Signs Date Time Temp Pulse Resp B/P (MAP) Pulse Ox O2 Delivery O2 Flow Rate FiO2 01/24/19 12:00 97.6 88 20 60/32 (41) 88 01/24/19 09:00 Nasal Cannula 3.0 01/24/19 08:00 97.4 90 20 72/38 (49) 89 01/24/19 04:00 97.8 87 16 65/40 (48) 95 01/24/19 00:00 97.7 87 18 68/36 (47) 90 01/23/19 21:00 Nasal Cannula 3.0 01/23/19 20:00 97.7 93 20 61/38 (46) 92 01/23/19 16:00 97.8 78 18 125/80 (95) Intake and Output 01/23/19 01/24/19 19:00 07:00 # Voids 1 # Bowel Movements 1 Height (Feet): 5 Height (Inches): 5.00 Weight (Pounds): 189 EENT: other - jaundiced Cardiovascular: tachycardia Respiratory/Chest: decreased breath sounds Abdomen: distended Objective no change Leonard Bautista MD Jan 24, 2019 15:00
--- NOTE | 2019-01-24 15:58 | NUR ---
DISCHARGE PLAN RECEIVED CALL FROM JACINTA WITH [facility] T: [phone] PATIENT [place] GOING TO [facility] [id number] [address] [place] [id number] T: [phone] [facility] WILL ARRANGE TRANSPORTATION
[2019-01-24 16:00] VITALS: BP 61/38
--- NOTE | 2019-01-24 18:33 | NUR ---
NURSE NOTES: PATIENT REMAINS ASLEEP WITH INTERMITTENT AWAKENESS. TURN SCHEDULE IN PROGRESS. WILL DISPLAY EYE CONTACT WHEN CALLED BY FIRST NAME. PRN SUCTIONING PROVIDED WITH MOUTH CARE. TOLERATED FAIR. FAMILY VISITS DURING THE DAY. DISCHARGE ORDER RECEIVED FOR [facility]. PLACED CALL TO GIVE REPORT. WAS TOLD SSN/SSBN ASSISTANT NAVIGATOR IS CURRENTLY IN A 911 EMERGENCY. WILL ATTEMPT TO CALL AGAIN OPR ENDORSED TO ONCOMING RN/SHAZIA. Addendum: 01/24/19 at 1845 by KAYLA ROJAS RN NURSE NOTES: CORRECTION OF FACILITY: [facility]
--- NOTE | 2019-01-24 19:30 | NUR ---
HAND-OFF: Report given to CIARRA GUSMAN LVN; PICTURE OF WOUND TO SACRAL TAKENED WITH INCOMING RN.
--- NOTE | 2019-01-24 19:30 | NUR ---
NURSE NOTES:Patient received from Flor Chavarria .Patient is asleep when received .Patient family at bedside . RFA G#22H/L Patent and intact . patient turned and repositioned for comfort .Patient on air mattress .Bilateral arms support with two pillows in placed Safety/ fall Implemented . call light within reach . Bed in low position. bed alarm on. will continue to monitor. Addendum: 01/25/19 at 0430 by CIARRA GUSMAN LVN patient O2 2l via n/c in placed .
--- NOTE | 2019-01-24 19:32 | Cardiac Electrophysiology PN ---
Assessment/Plan Assessment/Plan 1. Hypotension and sinus tach. Off tele. 2. Atypical Chest pain . EKG nonspecific ST-T wave abnormality. No RI. Echo EF 55% 3. Persistent hypokalemia. Corrected. 4. Leukocytosis. WBC 28K . Off Abx 5. ETOH Cirrhosis with Bilirubin 14. FU GI. S/P paracentesis 01/11/19 6. Comfort Care DW RN Subjective Subjective In comfort care.Placement pending Objective Last 24 Hour Vital Signs Date Time Temp Pulse Resp B/P (MAP) Pulse Ox O2 Delivery O2 Flow Rate FiO2 01/24/19 16:00 97.8 86 24 61/38 (46) 95 01/24/19 12:00 97.6 88 20 60/32 (41) 88 01/24/19 09:00 Nasal Cannula 3.0 01/24/19 08:00 97.4 90 20 72/38 (49) 89 01/24/19 04:00 97.8 87 16 65/40 (48) 95 01/24/19 00:00 97.7 87 18 68/36 (47) 90 01/23/19 21:00 Nasal Cannula 3.0 01/23/19 20:00 97.7 93 20 61/38 (46) 92 Intake and Output 01/23/19 01/24/19 19:00 07:00 # Voids 1 # Bowel Movements 1 Objective HEENT: Jaundiced sclera Cardiovascular: Distant S1 and S2 and no murmur Respiratory/Chest: Coarse Rhonchi Abdominal Exam: Distended with ascites Extremities: 2 plus edema Franck Saeed MD Jan 24, 2019 19:32
[2019-01-24 20:00] VITALS: BP 68/40
--- NOTE | 2019-01-24 20:00 | NUR ---
NURSE NOTES:Called and report given to Cory Lopez IN [facility] .Patient vital sign T97.2 P82/MIN . R 22/MIN. B/P 68/40 mmhg (Hypotensive ) spo2 95%. . CORY Lopez. From ([facility]) stating doesn't want to take patient due to hypotensive . DR. Schneider, [facility] and Dr. Saeed, [facility] and [facility] nursing dive supervisor . notified and aware . Addendum: 01/25/19 at 0025 by CIARRA GUSMAN LVN Martha CAMPOS Notified and Aware . Addendum: 01/25/19 at 0042 by CIARRA MELCHORN Patient transfer cancelled to [facility] spoke to Laura Prince from [facility] due to patient is hypotensive .vital amy T97.2 P 82/min R 22/min B/P 68/40 mmhg. spo2 95% . Addendum: 01/25/19 at 0202 by CIARRA GUSMAN LVN SpokE to JUICE Lopez from [facility].
--- NOTE | 2019-01-24 20:02 | NUR ---
NURSE NOTED Called Ambulance [phone] trip number [phone]. notified patient transfer picker / packer going to to [facility] cancelled. will continue to monitor.
--- NOTE | 2019-01-24 21:00 | NUR ---
NURSE NOTES:Patient transfer to [facility] [[email or web address] cancelled sister Malinda notified and aware.
--- NOTE | 2019-01-24 22:00 | NUR ---
NURSE NOTES: DR. Juan Olivia new orders 500cc NS bolus if ok with family. and stating [facility] they want to stabilize the patient blood pressure And possible discharge will be tomorrow if hospital will allow it .Martha tyler notified and aware. Addendum: 01/25/19 at 0223 by CIARRA GUSMAN LVN Called patient sister Malinda its ok to [id number] NS bolus.ordered by was given.
[2019-01-25] VITALS: BP 65/40
[2019-01-25 04:00] VITALS: BP 69/40
--- NOTE | 2019-01-25 07:30 | NUR ---
HAND-OFF: Report given to Argentina Chavarria
--- NOTE | 2019-01-25 07:35 | NUR ---
NURSE NOTES: WALKING ROUNDS DONE WITH OUTGOING RN. PATIENT ASLEEP IN BED. WILL RESPOND TO FIRST NAME UPON CALLING. DENIES PAIN. MOUTH CARE PROVIDED WITH PRN SUCTIONING. TURN SCHEDULE IN PROGRESS WITH PILLOW SUPPORT TO BONY PROMINENCES. Addendum: 01/25/19 at 1000 by KAYLA ROJAS RN NURSE NOTES: BED IN LOWEST AND LOCKED POSITION. CALL LIGHT WITHIN REACH.
[2019-01-25 08:00] VITALS: BP 68/36
--- NOTE | 2019-01-25 08:28 | Neurology Progress Note ---
Interim History Interim History ROS Limited/Unobtainable: Yes Complaints: AMS Interim History doing poorly, not following, non verbal waiting for hospice placement Objective Physical Exam Last Vital Signs Date Time Temp Pulse Resp B/P (MAP) Pulse Ox O2 Delivery O2 Flow Rate FiO2 01/25/19 04:00 97.2 77 20 69/40 (50) 95 01/24/19 21:00 Nasal Cannula 3.0 General: well developed, other Head: normocophalic, other Neck: no rigidity EENT: other - Visible right nasal polyp, skin tag, lesion - Neurologic Exam Mental Status: awake, alert, other Speech: other Language: other Cranial Nerve II: fundus normal, visual osorio, other Cranial Nerves III, IV, : PERRLA, EOMI, other Cranial Nerve V: normal facial sensations, temporales function normal, other Cranial Nerve VII: no facial asymmetry, other Cranial Nerve VIII: normal hearing, other Cranial Nerve IX: normal palate elevation, other Cranial Nerve X: no voice hoarseness, other Cranial Nerve XI: SCM symmetric, other Cranial Nerve XII: tongue midline, other Motor System: no involuntary movement, other Sensory: normal pinprick, normal light touch, normal position sense, normal graphesthesia, other Coordination: other - More appropriately verbal in conversation at times with depressed affect and difficulty following instructions during examination. Deep Tendon Reflexes: 1+ bicep (L), 1+ bicep (R), 1+ tricep (L), 1+ tricep (R) , 1+ brachioradialis (L), 1+ brachioradialis (R), 1+ knee (L), 1+ knee (R), 1+ ankle (L), 1+ ankle (R) Stance: other - Patient remains weak throughout all extremities with non focal exam. He is more appropriate in conversation today but remains non focal and encephalopathic Gait: other Impression/Recommendations Problems: (1) Coagulopathy (2) Acute upper GI bleed (3) Abdominal pain (4) Anemia (5) Electrolyte disorder (6) End stage liver disease (7) Jaundice (8) Hypocalcemia (9) Sepsis (10) SHABBIR (acute kidney injury) (11) Fecal impaction in rectum (12) Esophagitis (13) Alcoholic liver disease (14) Elevated LFTs (15) Acute alcoholic gastritis (16) Psychosis (17) Acute alcoholic intoxication (18) Acute encephalopathy Status: unchanged Diagnostic Impression agree with hospice poor prognosis Gold Dee MD Jan 25, 2019 08:28
--- NOTE | 2019-01-25 08:48 | General Progress Note ---
Assessment/Plan Problem List: (1) Abdominal pain ICD Codes: R10.9 - Unspecified abdominal pain SNOMED: 16738220 (2) Anemia ICD Codes: D64.9 - Anemia, unspecified SNOMED: 720087304 (3) Alcoholic liver disease ICD Codes: K70.9 - Alcoholic liver disease, unspecified SNOMED: 24863112 (4) Acute alcoholic gastritis ICD Codes: K29.20 - Alcoholic gastritis without bleeding SNOMED: 1739111 Qualifiers: Qualified Codes: K29.20 - Alcoholic gastritis without bleeding Status: unchanged Assessment/Plan: detox gi f/u cbc bmp am dc plan comfort snf if clear hospice eval Subjective Constitutional: Reports: weakness Allergies: Coded Allergies: No Known Allergies (Verified , 10/22/06) All Systems: reviewed and negative except above Subjective o2nc sleepy calm Objective Last 24 Hour Vital Signs Date Time Temp Pulse Resp B/P (MAP) Pulse Ox O2 Delivery O2 Flow Rate FiO2 01/25/19 08:00 97.1 79 16 68/36 (47) 98 01/25/19 04:00 97.2 77 20 69/40 (50) 95 01/25/19 00:00 98.0 82 20 65/40 (48) 95 01/24/19 21:00 Nasal Cannula 3.0 01/24/19 20:00 97.2 82 22 68/40 (49) 95 01/24/19 16:00 97.8 86 24 61/38 (46) 95 01/24/19 12:00 97.6 88 20 60/32 (41) 88 01/24/19 09:00 Nasal Cannula 3.0 Intake and Output 01/24/19 01/25/19 19:00 07:00 Intake Total 500 ml Balance 500 ml Intake Oral 0 ml IV Total 500 ml # Voids 1 1 # Bowel Movements 1 Height (Feet): 5 Height (Inches): 5.00 Weight (Pounds): 189 General Appearance: lethargic EENT: normal ENT inspection Neck: normal alignment Cardiovascular: normal peripheral pulses, normal rate, regular rhythm Respiratory/Chest: chest wall non-tender, lungs clear, normal breath sounds Abdomen: normal bowel sounds, non tender, soft Extremities: normal inspection Neurologic: motor weakness Skin: normal pigmentation, warm/dry Corwin Martinez DO Jan 25, 2019 08:48
[2019-01-25] MEDS: Lactulose 20gm/30ml UDC ORAL SCH ×3 (09:00→18:00)
--- NOTE | 2019-01-25 09:20 | NUR ---
NURSE NOTES: SPOKE TO RUFINA FROM [facility]. REQUESTING FACESHEET AND REFERRAL. FAXED TO [phone]. PER RUFINA WILL ARRANGE AMBULANCE TO ENDOSCOPY SPECIALTY TECHNICIAN PATIENT FOR TRANSFER TO THEIR FACILITY TODAY.
--- NOTE | 2019-01-25 09:23 | Nephrology Progress Note ---
Assessment/Plan Problem List: (1) SHABBIR (acute kidney injury) Assessment: likely hepatorenal (2) Alcoholic liver disease (3) Anemia (4) Electrolyte disorder (5) Jaundice Assessment Acute Alcoholic Gastritis / Encephalopathy - Intoxication Alcoholic Hepatitis Anemia Hypokalemia Psych disease Plan patient is DNR hypotensive not a dialysis candidate at this state previously has PICC Monitor lytes / Lfts per orders Subjective ROS Limited/Unobtainable: No Constitutional: Reports: malaise, weakness Objective Objective Last 24 Hour Vital Signs Date Time Temp Pulse Resp B/P (MAP) Pulse Ox O2 Delivery O2 Flow Rate FiO2 01/25/19 08:00 97.1 79 16 68/36 (47) 98 01/25/19 04:00 97.2 77 20 69/40 (50) 95 01/25/19 00:00 98.0 82 20 65/40 (48) 95 01/24/19 21:00 Nasal Cannula 3.0 01/24/19 20:00 97.2 82 22 68/40 (49) 95 01/24/19 16:00 97.8 86 24 61/38 (46) 95 01/24/19 12:00 97.6 88 20 60/32 (41) 88 Intake and Output 01/24/19 01/25/19 19:00 07:00 Intake Total 500 ml Balance 500 ml Intake Oral 0 ml IV Total 500 ml # Voids 1 1 # Bowel Movements 1 Height (Feet): 5 Height (Inches): 5.00 Weight (Pounds): 189 General Appearance: lethargic, confused EENT: other - icteric Cardiovascular: tachycardia Respiratory/Chest: decreased breath sounds Abdomen: distended Objective no change Leonard Bautista MD Jan 25, 2019 09:23
--- NOTE | 2019-01-25 10:46 | GI Progress Note ---
Assessment/Plan Problems: (1) Acute alcoholic gastritis ICD Codes: K29.20 - Alcoholic gastritis without bleeding SNOMED: 7607191 Qualifiers: Qualified Codes: K29.20 - Alcoholic gastritis without bleeding (2) Elevated LFTs ICD Codes: R94.5 - Abnormal results of liver function studies SNOMED: 211821757, 584478423 (3) Alcoholic liver disease ICD Codes: K70.9 - Alcoholic liver disease, unspecified SNOMED: 79944645 (4) Esophagitis ICD Codes: K20.9 - Esophagitis, unspecified SNOMED: 03595156 (5) Acute encephalopathy ICD Codes: G93.40 - Encephalopathy, unspecified SNOMED: 42740355, 496329876 (6) Psychosis ICD Codes: F29 - Unspecified psychosis not due to a substance or known physiological condition SNOMED: 48494468 (7) Acute alcoholic intoxication ICD Codes: F10.929 - Alcohol use, unspecified with intoxication, unspecified SNOMED: 96353966 Status: not improved, unchanged Status Narrative Discussed with Dr. Rich. Assessment/Plan Imaging noted, cirrhosis >> rising bili US with doppler r/o Budd-Chiari Syndrome>> negative OB stool negative Stable H&H discriminant function calculated, patient will benefit from glucocorticoid therapy >> held due to elevated WBC Paracentesis yielding 7.4L , rule out SBP >> negative lactulose + xifaxan bowel regimen ppi fu labs fu neurology recs poor prognosis hospice now The patient was seen and examined at bedside and all new and available data was reviewed in the patients chart. I agree with the above findings, impression and plan. (Patient seen earlier today. Signature stamp does not reflect patient encounter time.). - Jarod Rich MD Subjective Subjective limited Objective Last 24 Hour Vital Signs Date Time Temp Pulse Resp B/P (MAP) Pulse Ox O2 Delivery O2 Flow Rate FiO2 01/25/19 09:00 Nasal Cannula 3.0 01/25/19 08:00 97.1 79 16 68/36 (47) 98 01/25/19 04:00 97.2 77 20 69/40 (50) 95 01/25/19 00:00 98.0 82 20 65/40 (48) 95 01/24/19 21:00 Nasal Cannula 3.0 01/24/19 20:00 97.2 82 22 68/40 (49) 95 01/24/19 16:00 97.8 86 24 61/38 (46) 95 01/24/19 12:00 97.6 88 20 60/32 (41) 88 Intake and Output 01/24/19 01/25/19 19:00 07:00 Intake Total 500 ml Balance 500 ml Intake Oral 0 ml IV Total 500 ml # Voids 1 1 # Bowel Movements 1 Height (Feet): 5 Height (Inches): 5.00 Weight (Pounds): 189 Luisana Craft BARIATRIC PHYSICIAN Jan 25, 2019 10:46
[2019-01-25 11:45] VITALS: BP 60/38
--- NOTE | 2019-01-25 12:55 | Pulmonology Progress Note ---
Assessment/Plan Problems: (1) moribund (2) Dying/ measures (3) End stage liver disease (4) Coagulopathy (5) Psychosis (6) Acute encephalopathy (7) Alcoholic liver disease Assessment/Plan comatose off morphine drip difficult to manage because of conflicting requests by family members. i suggest comfort care suggest to stop doing blood work every day moribund, family in denial Subjective Interval Events: comatous Allergies: Coded Allergies: No Known Allergies (Verified , 10/22/06) Objective Last 24 Hour Vital Signs Date Time Temp Pulse Resp B/P (MAP) Pulse Ox O2 Delivery O2 Flow Rate FiO2 01/25/19 11:45 97.7 89 15 60/38 (45) 94 01/25/19 09:00 Nasal Cannula 3.0 01/25/19 08:00 97.1 79 16 68/36 (47) 98 01/25/19 04:00 97.2 77 20 69/40 (50) 95 01/25/19 00:00 98.0 82 20 65/40 (48) 95 01/24/19 21:00 Nasal Cannula 3.0 01/24/19 20:00 97.2 82 22 68/40 (49) 95 01/24/19 16:00 97.8 86 24 61/38 (46) 95 Intake and Output 01/24/19 01/25/19 19:00 07:00 Intake Total 500 ml Balance 500 ml Intake Oral 0 ml IV Total 500 ml # Voids 1 1 # Bowel Movements 1 Objective General Appearance: cachectic, icteric HEENT: atraumatic Respiratory/Chest: chest wall non-tender, coarse breath sounds Breasts: no masses Cardiovascular: normal rate Abdomen: soft, non tender, ascites ext + edema Current Medications Medications (Trade) Dose Ordered Sig/Clyde Route PRN Reason Start Time Stop Time Status Last Admin Dose Admin Dextrose (Dextrose 50%) 50 ml Q30M PRN IV Hypoglycemia 01/05/19 18:30 01/28/19 16:29 Lactulose (Cephulac) 30 gm THREE TIMES A DAY ORAL 01/17/19 18:00 02/16/19 17:59 Morphine Sulfate (Morphine Sulfate) 4 mg Q2H PRN IVP For Pain (4-10) 01/18/19 20:00 01/25/19 19:59 6/29/19 22:03 Ondansetron HCl (Zofran) 4 mg Q6H PRN IVP Nausea & Vomiting 01/05/19 18:25 02/04/19 18:24 Pantoprazole (Protonix) 40 mg EVERY 12 HOURS ORAL 01/17/19 21:00 02/16/19 20:59 Sodium Polystyrene Sulfonate (Kayexalate) 30 gm EVERY 6 HOURS PRN ORAL K > 5 01/22/19 14:45 02/21/19 14:44 Marion Schneider MD Jan 25, 2019 12:55
--- NOTE | 2019-01-25 14:08 | Cardiac Electrophysiology PN ---
Assessment/Plan Assessment/Plan 1. Hypotension and sinus tach. Off tele. 2. Atypical Chest pain . EKG nonspecific ST-T wave abnormality. No ND. Echo EF 55% 3. Persistent hypokalemia. Corrected. 4. Leukocytosis. WBC 28K . Off Abx 5. ETOH Cirrhosis with Bilirubin 14. FU GI. S/P paracentesis 01/11/19 6. Comfort Care NASIMA RN and Dr Schneider Subjective Subjective In hospice, dying protocol. Objective Last 24 Hour Vital Signs Date Time Temp Pulse Resp B/P (MAP) Pulse Ox O2 Delivery O2 Flow Rate FiO2 01/25/19 11:45 97.7 89 15 60/38 (45) 94 01/25/19 09:00 Nasal Cannula 3.0 01/25/19 08:00 97.1 79 16 68/36 (47) 98 01/25/19 04:00 97.2 77 20 69/40 (50) 95 01/25/19 00:00 98.0 82 20 65/40 (48) 95 01/24/19 21:00 Nasal Cannula 3.0 01/24/19 20:00 97.2 82 22 68/40 (49) 95 01/24/19 16:00 97.8 86 24 61/38 (46) 95 Intake and Output 01/24/19 01/25/19 19:00 07:00 Intake Total 500 ml Balance 500 ml Intake Oral 0 ml IV Total 500 ml # Voids 1 1 # Bowel Movements 1 Objective HEENT: Jaundiced sclera Cardiovascular: Distant S1 and S2 and no murmur Respiratory/Chest: Coarse Rhonchi Abdominal Exam: Distended with ascites Extremities: 2 plus edema Franck Saeed MD Jan 25, 2019 14:08
--- NOTE | 2019-01-25 14:20 | NUR ---
CASE MANAGEMENT:REVIEW 01/24/2019 SI: ACUTE ENCEPHALOPATHY. SEPSIS ACUTE ALCOHOLIC GASTRITIS. ESOPHAGITIS 97.6 88 20 60/32 88% on 3l/nc IS: IV MORPHINE Q2HRS PRN PROTONIX PO Q12 LACTULOSE PO TID : MED/SURG STATUS 3 [facility] 01/25/2019 SI: ACUTE ENCEPHALOPATHY. SEPSIS ACUTE ALCOHOLIC GASTRITIS. ESOPHAGITIS 97.7 89 15 60/38 94% ON 3L/NC IS: IV MORPHINE Q2HRS PRN PROTONIX PO Q12 LACTULOSE PO TID : MED/SURG STATUS 3 [facility] PLAN: PLAN WAS TO DISCHARGE YESTERDAY [facility]. HOWEVER WHEN NURSE CALLED TO GIVE REPORT THEY DECLINED TO ACCEPT PATIENT
--- NOTE | 2019-01-25 14:53 | Infectious Diseases Prog Note ---
Assessment/Plan Assessment/Plan 58 yo male with PMHx of EtOH abuse, Depression and anxiety, SI who presented to the ED on 12/29/18 with N/V and abdominal pain. Leukocytosis and single high temp- S/P Prednisone 01/09/19 Likely due to gastritis from EtOH need -MRCP : Very limited exam, as described. Normal caliber bile ducts without definite filling defects to suggest choledocholithiasis Cholelithiasis. Gallbladder wall thickening, also described on prior sonogram. Most likely on the basis of hepatocellular derangement but the possibility of acute cholecystitis should also be considered. Ascites. Abnormal hepatic morphology, also previously described, suggestive of cirrhotic change -Abd US: Hepatomegaly. Coarsened hepatic echogenicity and surface nodularitysuggests cirrhosis. Ascites, not demonstrated previously. Cholelithiasis and gallbladder sludge, not evident previously. Gallbladder wall thickening and pericholecystic fluid, probably due to the hepatocellular derangements, but the possibility of acute cholecystitis should also be considered. Correlate with clinical findings, consider nuclear medicine hepatobiliary scan if clinically indicated. Negative for dilated bile ducts. Incidental finding small left renal cyst -CT abd/p: Chronic liver disease/cirrhosis with fatty infiltration, enlargement of the liver and stigmata of portal hypertension including ascites and splenomegaly, recanalized umbilical vein. Basilar atelectasis. Probable gallstones. Tiny bilateral renal hypodensities too small to characterize.Fecal impaction Cirrhosis EtOH abuse Hep A/B/C - Neg Paracentesis Cx 01/11/19 - Neg Depression and anxiety SI HIV (-) PLAN: - Cotinue to monitor off antibiotics as dont believe is being of benefit, WBC unchanged and all cultures have been negative. Patient has end-stage liver disease and likely terminal at this point. Poor prognosis -01/21 SP ZOsyn #15, MIcafungin #5 - 01/08/19 S/P Levofloxacin #6 and Flagyl #6 - 01/03/19 S/P Zosyn #5 -aspiration precautions -goals of care discussion ongoing- agree with Hospice eval Subjective Allergies: Coded Allergies: No Known Allergies (Verified , 10/22/06) Subjective afebrile wbc icnreased to 30s; no further labs done remains comatose Bcx neg now off abx Objective Vital Signs Last 24 Hour Vital Signs Date Time Temp Pulse Resp B/P (MAP) Pulse Ox O2 Delivery O2 Flow Rate FiO2 01/25/19 11:45 97.7 89 15 60/38 (45) 94 01/25/19 09:00 Nasal Cannula 3.0 01/25/19 08:00 97.1 79 16 68/36 (47) 98 01/25/19 04:00 97.2 77 20 69/40 (50) 95 01/25/19 00:00 98.0 82 20 65/40 (48) 95 01/24/19 21:00 Nasal Cannula 3.0 01/24/19 20:00 97.2 82 22 68/40 (49) 95 01/24/19 16:00 97.8 86 24 61/38 (46) 95 Height (Feet): 5 Height (Inches): 5.00 Weight (Pounds): 189 Objective Gen: NAD HEENT: NCAT, MMM, EOMI, PERRL, No Oral lesion, no scleral icterus but blood shot NECK: full range of motion, supple, no meningismus, No LAD, No JVD LUNGS: CTAB, No W/C, No Accessory muscle use CARDS: RRR, S1, S2, No M/R/G, ABD: Soft, Epigastric pain, ND, No R/G, + BS, No HSM, No Masses : Deferred Ext: C/C/E, Pulses 2+ B/L (DP, Rad): NEURO: A/O x 4, Strength and Sensation Grossly intact PSYCH: Depressed SKIN: Warm/dry, No rashes Current Medications Medications (Trade) Dose Ordered Sig/Clyde Route PRN Reason Start Time Stop Time Status Last Admin Dose Admin Dextrose (Dextrose 50%) 50 ml Q30M PRN IV Hypoglycemia 01/05/19 18:30 01/28/19 16:29 Lactulose (Cephulac) 30 gm THREE TIMES A DAY ORAL 01/17/19 18:00 02/16/19 17:59 Morphine Sulfate (Morphine Sulfate) 4 mg Q2H PRN IVP For Pain (4-10) 01/18/19 20:00 01/25/19 19:59 01/21/19 22:03 Ondansetron HCl (Zofran) 4 mg Q6H PRN IVP Nausea & Vomiting 01/05/19 18:25 7/13/19 18:24 Pantoprazole (Protonix) 40 mg EVERY 12 HOURS ORAL 01/17/19 21:00 02/16/19 20:59 Sodium Polystyrene Sulfonate (Kayexalate) 30 gm EVERY 6 HOURS PRN ORAL K > 5 01/22/19 14:45 02/21/19 14:44 Carmen Berumen M.D. Jan 25, 2019 14:53
--- NOTE | 2019-01-25 15:15 | NUR ---
NURSE NOTES: FAMILY AT BEDSIDE. PATIENT RESTING COMFORTABLY.TURN SCHEDULE IN PROGRESS.
--- NOTE | 2019-01-25 15:30 | NUR ---
NURSE NOTES: Received report from [place] [facility]. Patient in bed at this time, RR even, labored, on 3L NC, on comfort measures. Will continue to monitor.
--- NOTE | 2019-01-25 15:31 | NUR ---
HAND-OFF: Report given to KARYN CHONG RN.
--- NOTE | 2019-01-25 15:52 | NUR ---
*-* INSURANCE *-* REVIEWS HAVE BEEN FAXED TO [facility] NCM: DOMINGUEZ Iglesias P- [phone] F- [phone].....REVIEW/CLINICAL
[2019-01-25 16:00] VITALS: BP 50/35
--- NOTE | 2019-01-25 16:54 | NUR ---
CHARGE NURSE NOTES: Iona from [facility] set up the transportation [employer] for [phone] trip # [id number].
--- NOTE | 2019-01-25 17:31 | NUR ---
NURSE NOTES: Called and gave report to BRANNON Coker at [facility].
--- NOTE | 2019-01-25 19:00 | NUR ---
NURSE NOTES: Patient discharged with unchanged condition. WCP taken and uploaded by night clerk auditor nurse at 0319. IV removed intact. Patient transferred [facility] safely by EMS personnel with patient belongings.
[2019-01-25] MEDS ORDERED: NS 500ML ONE (19:03)
--- NOTE | 2019-01-25 19:03 | NUR ---
CHARGE NURSE NOTES: lEFT MESSAGE TO jeanne regarding the discharge.
--- NOTE | 2019-01-26 14:47 | Discharge Summary ---
Discharge Summary Discharge Summary _ DATE OF ADMISSION: 12/29/2018 DATE OF DISCHARGE: 01/25/2019 DISCHARGED BY: Dr. Corwin Martinez CONSULTANTS: Dr. Marion Kingsley [facility]: Patient is an unfortunate 58-year-old male who presented to ER due to abdominal pain with nausea and vomiting x1 day. Patient has history of EtOH abuse. He reported blood in his vomitus. He denied melena or blood in the stool. Patient stated due to insurance, he had not taken medications for several months. Patient was reported to be homeless. On evaluation at the ED, vital signs were stable. Patient was afebrile. Blood work showed WBC 12.3. Hemoglobin 9, hematocrit 29. Potassium was 3.3. Chloride 101. Bilirubin was elevated to 9.9. Direct bilirubin 8.4. AST was elevated to 170, ALT normal at 44. Alkaline phosphatase was elevated to 562. Lipase was normal. Serum alcohol level was 169. Acetaminophen and salicylates were negative. INR was elevated to 1.3. He had CT of the abdomen and pelvis that showed chronic liver disease/cirrhosis with fatty infiltration, enlargement of liver and stigmata of portal hypertension including ascites and splenomegaly; recanalized umbilical pain; probable gallstones and fecal impaction. He was given IV hydration. He was given symptomatic treatment with Pepcid and Zofran. He was given morphine. He was started empirically on IV Rocephin. He was then admitted for evaluation of acute alcoholic gastritis and alcoholic liver disease. He was initially placed on n.p.o. He was given IV hydration. He spiked a fever. He was given Zosyn. He was given banana bag. He was given folic acid and vitamin B12. Given potassium, magnesium and phosphate supplements. Abdominal ultrasound showed hepatomegaly with coarsened hepatic echogenicity and nodularity suggestive of cirrhosis. There was gallbladder wall thickening and pericholecystic fluid, probably due to hepatocellular derangement but possibility of acute cholecystitis was considered. He had atypical chest pain. EKG showed nonspecific ST-T wave abnormality. Echocardiogram showed EF of 55%. GA was ruled out. He was continued on Zosyn and levofloxacin was added. MRCP showed limited exam. There was gallbladder wall thickening, normal caliber bile ducts without definite filling defects to suggest choledocholithiasis. Patient was confused. He had persistent elevated ammonia levels. He was given lactulose. He continued to be tachycardic. Xifaxan was added. Bilirubin continued to increase. Ultrasound with Doppler was negative forBudd- Chiari syndrome. Family meeting was done. Patient was placed in hospice. Plans for ERCP and paracentesis were consulted. Patient had low blood pressure and was given midodrine. Antibiotics were adjusted. Zosyn was discontinued. He was given Flagyl and levofloxacin. Discriminant function was calculated. Per GI, patient will benefit from glucocorticoid therapy. He was started on prednisone 40 mg p.o. DC planning was started. He was referred to multiple facilities. He continued to have leukocytosis. Steroid was discontinued. On 01/11/2019, he underwent ultrasound-guided paracentesis, yielding 7.4 L of fluid. Ascitic fluid culture did not isolate any growth. Bilirubin continued to rise. Patient in comfort care, was recommended morphine drip, however difficult to manage because of conflicting requests by family members. Patient family refused morphine drip. Leukocytosis persisted. All cultures had been negative. Antibiotics were discontinued. Patient has end-stage liver disease and likely terminal with poor prognosis. Placement was secured. Patient was discharged under hospice. FINAL DIAGNOSES: End-stage liver disease Gastritis from EtOH abuse Cirrhosis Hypotension Atypical chest pain Persistent hypokalemia Alcoholic liver disease Acute kidney injury Anemia Acute encephalopathy Acute alcohol intoxication Elevated LFTs Fecal impaction Coagulopathy Hypocalcemia [place] Comfort care/hospice care DISPOSITION: Patient was discharged to hospice care. DISCHARGE MEDICATIONS: Refer to Discharge Medication List. I have been assigned to complete a discharge summary on this account, I was not involved with the patient's management.--ELY Barrera Jacqueline Robles NP Jan 26, 2019 14:47
== END 2019-01-25 19:04 | disposition hospice, home (50) | DRG 241 ==
LOC: EDBD → MERGE 12:44 → EMR 12:44 → 4E 14:32 → EDBEDREQ 14:54 → 2E 12-30 01:03 → 3E 01-05 17:48
PROC: 02HV33Z Insertion of Infusion Device into Superior Vena Cava, Percutaneous Approach (ICD-10-PCS; 2019-01-02)
PROC: B518ZZA Fluoroscopy of Superior Vena Cava, Guidance (ICD-10-PCS; 2019-01-02)
PROC: 0W9G3ZZ Drainage of Peritoneal Cavity, Percutaneous Approach (ICD-10-PCS; principal; 2019-01-11)
DX: K29.21 Alcoholic gastritis with bleeding (principal); G93.49 Other encephalopathy; N17.9 Acute kidney failure, unspecified; D68.9 Coagulation defect, unspecified; I95.9 Hypotension, unspecified; K70.11 Alcoholic hepatitis with ascites; E87.1 Hypo-osmolality and hyponatremia; E83.51 Hypocalcemia; F29 Unspecified psychosis not due to a substance or known physiological condition; F10.229 Alcohol dependence with intoxication, unspecified; K70.31 Alcoholic cirrhosis of liver with ascites; Z59.0 Homelessness; K56.41 Fecal impaction; F32.9 Major depressive disorder, single episode, unspecified; F41.9 Anxiety disorder, unspecified; Z51.5 Encounter for palliative care; Z66 Do not resuscitate; K20.9 Esophagitis, unspecified; D64.9 Anemia, unspecified; E87.6 Hypokalemia; D72.829 Elevated white blood cell count, unspecified; R07.89 Other chest pain
CPT/HCPCS: 36415; 36569; 70450; 71045; 74177; 74181; 76700; 76705; 76937; 76942; 80048; 80053; 80061; 80076; 80307; 80329; 81003; 82105; 82140; 82248; 82270; 82533; 82607; 82728; 82746; 82962; 82977; 83036; 83540; 83550; 83690; 83735; 83880; 84100; 84439; 84443; 84550; 85007; 85025; 85044; 85060; 85610; 85651; 85730; 86140; 86703; 86705; 86709; 86803; 86850; 86900; 86901; 86920; 87040; 87070; 87081; 87205; 87340; 88104; 93005; 93306; 96361; 96365; 96375; 99285; C9399; J2405; J2765; J3430; J8499